=== PATIENT | female | born 1960 | race African-American/Black ===

== ENCOUNTER 2018-01-25 13:06 | Emergency (ER) | payer OTHER ==
--- NOTE | 2018-01-25 14:08 | RAD REPORT ---
EXAM DESCRIPTION: Pramod Noble (2 Views)01/25/2018 1:49 pm CLINICAL HISTORY: Cough COMPARISON: None FINDINGS: The lungs appear clear of acute infiltrate. The heart is normal size IMPRESSION: No acute abnormalities displayed
[2018-01-25] MEDS ORDERED: DEXAMETHASONE 10 MG/ML VIAL ONE (14:41)
--- NOTE | 2018-01-25 14:50 | ER ---
Nurse's Notes [facility] Name: Sergio Otero Age: 57 yrs Sex: Female : 1960 Arrival Date: 01/25/2018 Time: 13:07 Bed 26 Private MD: Pratik Arias Diagnosis: Allergic rhinitis, unspecified Presentation: 01/25 13:10 Presenting complaint: Patient states: I have been real congested for about a week and la1 trying OTC meds but I just cant seem to get rid of it. Transition of care: patient was not received from another setting of care. Onset of symptoms was January 25, 2018. Care prior to arrival: None. 13:10 Method Of Arrival: Ambulatory la1 13:10 Acuity: SIMONE 4 la1 Historical: - Allergies: 13:11 No Known Allergies; la1 - PMHx: 13:11 Hyperlipidemia; Hypertension; kidney function is low; Sickle Cell Trait; la1 - Immunization history:: Adult Immunizations up to date. - Social history:: Smoking status: Patient/guardian denies using tobacco. Screenin:20 Abuse screen: Denies threats or abuse. Denies injuries from another. Nutritional aj1 screening: No deficits noted. Tuberculosis screening: No symptoms or risk factors identified. Fall Risk None identified. Assessment: 14:20 General: Appears in no apparent distress. uncomfortable, Behavior is calm, cooperative, aj1 appropriate for age. Pain: Denies pain. Neuro: No deficits noted. Level of Consciousness is awake, alert, obeys commands, Oriented to person, place, time, situation, Speech is normal. Cardiovascular: Patient's skin is warm and dry. Respiratory: Reports shortness of breath on exertion cough that is non-productive, Airway is patent Respiratory effort is even, unlabored, Respiratory pattern is regular, symmetrical, Breath sounds are clear bilaterally. GI: No signs and/or symptoms were reported involving the gastrointestinal system. : No signs and/or symptoms were reported regarding the genitourinary system. EENT: Reports nasal congestion nasal discharge. Derm: No signs and/or symptoms reported regarding the dermatologic system. Skin is pink, warm \T\ dry. normal. Musculoskeletal: No signs and/or symptoms reported regarding the musculoskeletal system. Circulation, motion, and sensation intact. 15:29 Reassessment: Patient appears in no apparent distress at this time. No changes from aj1 previously documented assessment. Patient and/or family updated on plan of care and expected duration. Pain level reassessed. Patient is alert, oriented x 3, equal unlabored respirations, skin warm/dry/pink. Vital Signs: 13:11 BP 151 / 86; Pulse 82; Resp 16; Temp 98.3; Pulse Ox 96% on R/A; Weight 108.86 kg; la1 Height 5 ft. 7 in. (170.18 cm); 14:20 BP 149 / 83; Pulse 87; Resp 18; Pulse Ox 95% on R/A; aj1 13:11 Body Mass Index 37.59 (108.86 kg, 170.18 cm) la1 ED Course: 13:07 Patient arrived in ED. as 13:07 Pratik Arias DO is Private Physician. as 13:10 Triage completed. la1 13:11 Arm band placed on left wrist. la1 13:13 Xenia Cody F[facility]-C is [facility]. kb 13:13 Eugenio Sanchez MD is Attending Physician. kb 13:40 Patient moved to radiology via wheelchair. jb2 13:44 X-ray completed. Patient tolerated procedure well. jb2 13:44 Chest Pa And Lat (2 Views) XRAY In Process Unspecified. EDMS 13:48 Patient moved back from radiology. jb2 14:17 Maryellen Anand, RN is Primary Nurse. aj1 14:20 Patient has correct armband on for positive identification. Bed in low position. Call aj1 light in reach. Side rails up X 1. 14:20 No provider procedures requiring assistance completed. aj1 15:30 Patient did not have IV access during this emergency room visit. aj1 Administered Medications: 14:30 Drug: Decadron 10 mg Route: IM; Site: left deltoid; aj1 Outcome: 14:50 Discharge ordered by MD. kb 15:52 Discharged to home ambulatory. ss 15:52 Condition: good 15:52 Discharge instructions given to patient, family, Instructed on discharge instructions, follow up and referral plans. Demonstrated understanding of instructions, follow-up care. 15:53 Patient left the ED. ss Signatures: Dispatcher [employer] [facility] Xenia Cody FNP-C FNP-Maryellen Heath RN RN aj1 Buechter, Maria G Greene Shelby, RN RN ss Edilberto Parra RN RN la1 Corrections: (The following items were deleted from the chart) 15: General: Appears in no apparent distress. uncomfortable, Behavior is calm, aj1 cooperative, appropriate for age, [facility] 15: Pain: Denies pain. aj1 [facility] 15: Neuro: No deficits noted. Level of Consciousness is awake, alert, obeys commands, aj1 Oriented to person, place, time, situation, Speech is normal, aj1 15: Cardiovascular: Patient's skin is warm and dry. aj1 [facility] 15: Respiratory: Reports shortness of breath on exertion cough that is aj1 non-productive, Airway is patent Respiratory effort is even, unlabored, Respiratory pattern is regular, symmetrical, Breath sounds are clear bilaterally. aj1 15: GI: No signs and/or symptoms were reported involving the gastrointestinal system. aj1 1 15: : No signs and/or symptoms were reported regarding the genitourinary system. aj1aj1 15: EENT: Reports nasal congestion nasal discharge aj1 [facility] 15: Derm: No signs and/or symptoms reported regarding the dermatologic system. Skin aj1 is pink, warm \T\ dry. normal, 1 15: Musculoskeletal: No signs and/or symptoms reported regarding the musculoskeletal aj1 system. Circulation, motion, and sensation intact. aj1
--- NOTE | 2018-01-25 14:50 | EDPHYS ---
Physician Documentation [facility] Name: Sergio Otero Age: 57 yrs Sex: Female : 1960 Arrival Date: 01/25/2018 Time: 13:07 Bed 26 Private MD: [facility] ED Physician Eugenio Sanchez HPI: 01/25 14:42 This 57 yrs old Black Female presents to ER via Ambulatory with complaints of kb Congestion, Shortness Of Breath. 14:42 The patient or guardian reports cough, that is intermittent, described as mild, with no kb sputum. Onset: The symptoms/episode began/occurred 1 week(s) ago. Severity of symptoms: At their worst the symptoms were mild, moderate, in the emergency department the symptoms are unchanged. Modifying factors: The symptoms are alleviated by nothing, the symptoms are aggravated by nothing. Associated signs and symptoms: Pertinent positives: rhinorrhea, Pertinent negatives: chest pain, diarrhea, ear ache, fever, nausea, sore throat, vomiting. The patient has not experienced similar symptoms in the past. The patient has not recently seen a physician. Pt states she has had congestion for a week. Called her PCP yesterday and was told to start flonase and allergra. Started both yesterday, but still congested. Came to see if she could get an "allergy shot.". Historical: - Allergies: 13:11 No Known Allergies; la1 - PMHx: 13:11 Hyperlipidemia; Hypertension; kidney function is low; Sickle Cell Trait; la1 - Immunization history:: Adult Immunizations up to date. - Social history:: Smoking status: Patient/guardian denies using tobacco. ROS: 14:39 Cardiovascular: Negative for chest pain, palpitations, and edema, Abdomen/GI: Negative kb for abdominal pain, nausea, vomiting, diarrhea, and constipation, Back: Negative for injury and pain, MS/Extremity: Negative for injury and deformity, Skin: Negative for injury, rash, and discoloration, Neuro: Negative for headache, weakness, numbness, tingling, and seizure. 14:39 Constitutional: Positive for chills, Negative for body aches, fatigue, fever, malaise, poor PO intake, weight loss. 14:39 ENT: Positive for rhinorrhea, sinus congestion. 14:39 Respiratory: Positive for cough, Negative for dyspnea on exertion, hemoptysis, orthopnea, pleurisy, shortness of breath, sputum production, wheezing. Exam: 14:39 Constitutional: This is a well developed, well nourished patient who is awake, alert, kb and in no acute distress. Head/Face: Normocephalic, atraumatic. ENT: Nares patent. No nasal discharge, no septal abnormalities noted. Tympanic membranes are normal and external auditory canals are clear. Oropharynx with no redness, swelling, or masses, exudates, or evidence of obstruction, uvula midline. Mucous membranes moist. Neck: Trachea midline, no thyromegaly or masses palpated, and no cervical lymphadenopathy. Supple, full range of motion without nuchal rigidity, or vertebral point tenderness. No Meningismus. Chest/axilla: Normal chest wall appearance and motion. Nontender with no deformity. No lesions are appreciated. Cardiovascular: Regular rate and rhythm with a normal S1 and S2. No gallops, murmurs, or rubs. Normal PMI, no JVD. No pulse deficits. Respiratory: Lungs have equal breath sounds bilaterally, clear to auscultation and percussion. No rales, rhonchi or wheezes noted. No increased work of breathing, no retractions or nasal flaring. Abdomen/GI: Soft, non-tender, with normal bowel sounds. No distension or tympany. No guarding or rebound. No evidence of tenderness throughout. Skin: Warm, dry with normal turgor. Normal color with no rashes, no lesions, and no evidence of cellulitis. MS/ Extremity: Pulses equal, no cyanosis. Neurovascular intact. Full, normal range of motion. Neuro: Awake and alert, GCS 15, oriented to person, place, time, and situation. Cranial nerves II-XII grossly intact. Motor strength 5/5 in all extremities. Sensory grossly intact. Cerebellar exam normal. Normal gait. Vital Signs: 13:11 BP 151 / 86; Pulse 82; Resp 16; Temp 98.3; Pulse Ox 96% on R/A; Weight 108.86 kg; la1 Height 5 ft. 7 in. (170.18 cm); 14:20 BP 149 / 83; Pulse 87; Resp 18; Pulse Ox 95% on R/A; aj1 13:11 Body Mass Index 37.59 (108.86 kg, 170.18 cm) la1 MDM: 13:13 Patient medically screened. kb 14:39 Data reviewed: vital signs, nurses notes. Data interpreted: Pulse oximetry: on room air kb is 96 %. Interpretation: normal. 14:42 Counseling: I had a detailed discussion with the patient and/or guardian regarding: the kb historical points, exam findings, and any diagnostic results supporting the discharge/admit diagnosis, lab results, radiology results, the need for outpatient follow up, a family practitioner, to return to the emergency department if symptoms worsen or persist or if there are any questions or concerns that arise at home. 01/25 13:23 Order name: Flu; Complete Time: 14:49 kb 01/25 13:23 Order name: Chest Pa And Lat (2 Views) XRAY; Complete Time: 14:08 kb Administered Medications: 14:30 Drug: Decadron 10 mg Route: IM; Site: left deltoid; aj1 Disposition: 01/25/18 14:50 Discharged to Home. Impression: Allergic rhinitis, unspecified. - Condition is Stable. - Discharge Instructions: Allergic Rhinitis, Allergies, [id number]. - Medication Reconciliation Form, Thank You Letter, Antibiotic Education, Prescription Opioid Use form. - Follow up: Emergency Department; When: As needed; Reason: Worsening of condition. Follow up: Private Physician; When: 2 - 3 days; Reason: Recheck today's complaints, Continuance of care, Re-evaluation by your physician. Addendum: 01/28/2018 08:24 Co-signature as Attending Physician, Eugenio Sanchez MD I agree with the assessment and c ledezma plan of care. Signatures: Dispatcher [employer] Xenia Gatica, SPORTS CLERK-C SPORTS CLERK-CkMaryellen Ortiz, RN RN aj1 Eugenio Sanchez MD MD cha Smirch, Shelby, RN RN ss Edilberto Parra, RN RN la1
[2018-01-25 15:57] VITALS: TEMP 98.3
[2018-01-25 15:58] VITALS: BP 149/83; O2SAT 95
== END 2018-01-25 15:53 | disposition home or self-care (01) ==
LOC: ER 13:06
DX: J30.9 Allergic rhinitis, unspecified (principal); I10 Essential (primary) hypertension
CPT/HCPCS: 71046; 87804 ×2; 96372; 99283; J1100

== ENCOUNTER 2018-05-04 17:20 | Emergency (ER) | payer OTHER ==
--- OUTSIDE RECORDS SUMMARY | 2018-05-04 17:22 | XMS REPORT ---
:1960 Author Organization [employer] Care Team Providers Name Role Phone Pratik Arias Provider Role Unavailable Allergies No Known Allergies Problems Problem Type Condition Code Onset Dates Condition Status Problem Sickle-cell trait D57.3 Active Problem Colon polyp K63.5 Active Problem Iron deficiency anemia due to D50.0 Active chronic blood loss Problem Benign essential HTN I10 Active Problem Heel pain M79.673 Active Problem Obesity E66.9 Active Problem Varicose vein I86.8 Active Problem Hyperlipidemia, mixed E78.2 Active Problem Glaucoma H40.9 Active Problem Chronic renal disease N18.9 Active Assessment Screening mammogram, encounter for Z12.31 Active Problem Pulmonary hypertension I27.20 Active Problem 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 Active Medications No Known Medications Results No Known Results Summary Purpose [employer]Clinical[employer] Submission
--- OUTSIDE RECORDS SUMMARY | 2018-05-04 17:22 | XMS REPORT ---
:1960 Author Organization [employer] Care Team Providers Name Role Phone Pratik Arias Provider Role Unavailable Allergies No Known Allergies Problems Problem Type Condition Code Onset Dates Condition Status Problem Sickle-cell trait D57.3 Active Problem Colon polyp K63.5 Active Problem Iron deficiency anemia due to D50.0 Active chronic blood loss Problem Pulmonary hypertension I27.20 Active Problem 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 Active Problem Benign essential HTN I10 Active Problem Heel pain M79.673 Active Problem Obesity E66.9 Active Problem Varicose vein I86.8 Active Problem Hyperlipidemia, mixed E78.2 Active Problem Glaucoma H40.9 Active Problem Chronic renal disease N18.9 Active Medications No Known Medications Results No Known Results Summary Purpose [employer] Submission
--- OUTSIDE RECORDS SUMMARY | 2018-05-04 17:22 | XMS REPORT ---
:1960 Author Organization [employer] Care Team Providers Name Role Phone Pratik [...] Medications Results No Known Results Summary Purpose [employer] Submission
--- OUTSIDE RECORDS SUMMARY | 2018-05-04 17:22 | XMS REPORT ---
:1960 Author Organization [employer] Care Team Providers Name Role Phone Hugo Pratik Provider Role Unavailable Allergies No Known Allergies [...] Problem Chronic renal disease N18.9 Active Assessment Heat rash L74.0 Active Assessment Dry skin dermatitis L85.3 Active Problem Pulmonary hypertension I27.20 Active Problem 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 Active Medications Medication Code Code Instructions Start End Status Dosage System Date Date Furosemide FOR[facility] NAMED [facility] 26930578674 20 MG Orally Active 1 tablet Once a day Ferrous FORMERLY NAMED [facility] 36254184305 325 (65 Fe) MG Active 1 tablet Sulfate Orally Once a day Lumigan FORMER[facility] NAMED [facility] 65522382390 0.01 % Active 1 drop into Ophthalmic Once affected eye a day in the evening Aspir-81 FORMERLY NAMED [facility] 47293006431 81 MG Orally Active 1 tablet Once a day Simvastatin ND 83585166872 10 MG Orally Active 1 tablet in Once a day the evening Lisinopril ND 89230109928 20 MG Orally Active 1 tablet Once a day nexium ND 01624162606 Oral Active 1 tab Amlodipine FORMERLY NAMED [facility] 37032579709 5MG Active TAKE ONE Besylate TABLET BY MOUTH ONCE DAILY Temovate ND 89971794808 0.05 % Active 1 application Externally to affected Twice a day area Norvasc FORMERLY NAMED [facility] 78802711770 5 MG Orally Active 1 tablet Once a day Results No Known Results Summary Purpose [employer] Submission
--- OUTSIDE RECORDS SUMMARY | 2018-05-04 17:22 | XMS REPORT ---
[...] Problem Chronic renal disease N18.9 Active Assessment Pulmonary hypertension I27.20 Active Assessment Sickle-cell trait D57.3 Active Assessment Chronic renal disease N18.9 Active Assessment Benign essential HTN I10 Active Assessment Iron deficiency anemia due to D50.0 Active chronic blood loss Problem Pulmonary hypertension I27.20 Active Assessment Hyperlipidemia, mixed E78.2 Active Problem 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 Active Medications Medication Code Code Instructions Start End Status Dosage System Date Date Furosemide [facility] 54013327156 20 MG Orally Active 1 tablet Once a day Ferrous [facility] 54649835988 325 (65 Fe) MG Active 1 tablet Sulfate Orally Once a day Temovate [facility] 26425208327 0.05 % Active 1 application Externally to affected Twice a day area Amlodipine [facility] 29919162974 5MG Active TAKE ONE Besylate TABLET BY MOUTH ONCE DAILY Simvastatin ND 32388447643 10 MG Orally Active 1 tablet in Once a day the evening Norvasc [facility] 54581426564 5 MG Orally Active 1 tablet Once a day nexium ND 94385404886 Oral Active 1 tab Lumigan [facility] 78700786188 0.01 % Active 1 drop into Ophthalmic Once affected eye a day in the evening Aspir-81 [facility] 01793844029 81 MG Orally Active 1 tablet Once a day Lisinopril ND 46860465374 20 MG Orally Active 1 tablet Once a day Results No Known Results Summary Purpose [employer]ClinicalWorks Submission
[2018-05-04 18:02] LABS: Urine Blood NEGATIVE (NEG); Urine Glucose 1+ (NEG); Urine Protein 2+ (NEG)
[2018-05-04 18:13] LABS: Urine Bacteria 20-50 /HPF (<20); Urine Culture Reflex Order REFLEXED; Urine RBC <5 /HPF (NONE SEEN); Urine Yeast FEW (NONE SEEN)
[2018-05-04] MEDS ORDERED: CEFTRIAXONE/SWI 1gm 0 GM/0 ML SYR ONE ×2 (18:32)
[2018-05-04] MEDS ORDERED: CEFTRIAXONE/SWI 1gm 1 GM/10 ML SYR ONE (18:33)
[2018-05-04] MEDS ORDERED: LIDOCAINE 1% MPF 2 ML AMPULE ONE (18:46)
[2018-05-04] MEDS ORDERED: CEFTRIAXONE 1000 MG/VIAL ONE (18:47)
--- NOTE | 2018-05-04 19:19 | EDPHYS ---
Physician Documentation [facility] Name: Sergio Otero Age: 57 yrs Sex: Female : 1960 Arrival Date: 05/04/2018 Time: 17:23 Bed 6 Private MD: Pratik Arias ED Physician Eugenio Sanchez HPI: 05/04 18:00 This 57 yrs old Black Female presents to ER via Ambulatory with complaints of cp Dizziness, Abdominal Pain, Ankle Pain. 18:00 The patient presents with urinary symptoms, lower abdominal pain. Onset: The cp symptoms/episode began/occurred today. 18:00 Associated signs and symptoms: Pertinent positives: episode of dizziness earlier today cp that has now resolved. Severity of symptoms: in the emergency department the symptoms have improved, mildly. Patient also reports increasing left foot pain and reports history of "cyst" located dorsum of left foot. Denies injury. Historical: - Allergies: 17:35 No Known Allergies; ss - Home Meds: 19:30 amlodipine oral [Active]; esomeprazole magnesium 40 mg Oral cpDR 1 cap once daily lp1 [Active]; Lasix 20 mg Oral tab 1 tab once daily [Active]; losartan 25 mg Oral tab 1 tab once daily [Active]; pravastatin Oral [Active]; - PMHx: 17:35 Hyperlipidemia; Hypertension; Sickle Cell Trait; kidney function is low; ss - PSHx: 17:35 c section; bilateral knee repair; cyst removed from feet; adrenal gland removed; L ss rotator cuff repair; - Immunization history:: Adult Immunizations up to date. - Social history:: Smoking status: Patient/guardian denies using tobacco. - Ebola Screening: : Patient denies exposure to infectious person Patient denies travel to an Ebola-affected area in the 21 days before illness onset. ROS: 18:05 Constitutional: Negative for body aches, chills, fever, poor PO intake. cp 18:05 Eyes: Negative for injury, pain, redness, and discharge. cp 18:05 ENT: Negative for drainage from ear(s), ear pain, sore throat, difficulty swallowing, difficulty handling secretions. 18:05 Cardiovascular: Negative for chest pain, edema, palpitations. 18:05 Respiratory: Negative for cough, shortness of breath, wheezing. 18:05 Abdomen/GI: Positive for abdominal pain, Negative for nausea, vomiting, and diarrhea, anorexia, black/tarry stool, rectal bleeding. 18:05 : Positive for urinary symptoms, Negative for vaginal bleeding, vaginal discharge. 18:05 MS/extremity: Positive for pain, swelling, tenderness, of the left foot, Negative for injury or acute deformity. 18:05 Skin: Negative for cellulitis, rash. 18:05 Neuro: Negative for altered mental status, headache, syncope, near syncope, weakness. 18:05 All other systems are negative. Exam: 18:12 Constitutional: The patient appears in no acute distress, alert, awake, cp non-diaphoretic, non-toxic, well developed, well nourished. 18:12 Head/Face: Normocephalic, atraumatic. cp 18:12 Eyes: Periorbital structures: appear normal, Conjunctiva: normal, no exudate, no injection, Sclera: no appreciated abnormality, Lids and lashes: appear normal, bilaterally. 18:12 ENT: External ear(s): are unremarkable, Nose: is normal, Mouth: Lips: moist, Oral mucosa: moist, Posterior pharynx: is normal, airway is patent. 18:12 Neck: ROM/movement: is normal, is supple, without pain, no range of motions limitations, no nuchal rigidity. 18:12 Chest/axilla: Inspection: normal, Palpation: is normal, no crepitus, no tenderness. 18:12 Cardiovascular: Rate: normal, Rhythm: regular. 18:12 Respiratory: the patient does not display signs of respiratory distress, Respirations: normal, no use of accessory muscles, no retractions, no splinting, no tachypnea, Breath sounds: are clear throughout, no decreased breath sounds, no stridor, no wheezing. 18:12 Abdomen/GI: Inspection: abdomen appears normal, Bowel sounds: active, all quadrants, Palpation: abdomen is soft and non-tender, in all quadrants, rebound tenderness, is not appreciated, voluntary guarding, is not appreciated, involuntary guarding, is not appreciated. 18:12 Back: CVA tenderness, is absent. 18:12 Musculoskeletal/extremity: Extremities: grossly normal except: noted in the proximal dorsum left foot: pain, swelling, tenderness, There is no evidence of ecchymosis, erythema, Perfusion: the extremity is normally perfused throughout, Sensation intact. 18:12 Skin: cellulitis, is not appreciated, no rash present. 18:12 Neuro: Orientation: to person, place \\T\\ time. Mentation: is normal, Cerebellar function: is grossly normal, Motor: moves all fours, strength is normal, Sensation: no obvious gross deficits. Vital Signs: 17:35 BP 124 / 76; Pulse 80; Resp 16; Temp 98.6(TE); Pulse Ox 97% on R/A; Weight 113.4 kg; ss Height 5 ft. 7 in. (170.18 cm); Pain 0/10; 18:00 BP 135 / 72 Supine; Pulse 76; aj1 18:02 BP 124 / 75 Sitting; Pulse 76; aj1 18:04 BP 143 / 73 Standing; Pulse 87; aj1 19:30 BP 137 / 73; Pulse 73; Resp 20; Pulse Ox 98% on R/A; lp1 17:35 Body Mass Index 39.16 (113.40 kg, 170.18 cm) ss MDM: 17:39 Patient medically screened. cp 18:00 Differential diagnosis: appendicitis, kidney stone, urinary tract infection, vaginosis. cp 19:18 Data reviewed: vital signs, nurses notes, lab test result(s), radiologic studies, plain cp films. 19:18 Test interpretation: by ED physician or midlevel provider: plain radiologic studies. cp Counseling: I had a detailed discussion with the patient and/or guardian regarding: the historical points, exam findings, and any diagnostic results supporting the discharge/admit diagnosis, lab results, radiology results, the need for outpatient follow up, a family practitioner, to return to the emergency department if symptoms worsen or persist or if there are any questions or concerns that arise at home. Response to treatment: the patient's symptoms have mildly improved after treatment, and as a result, I will discharge patient. 05/04 17:48 Order name: Urine Microscopic Only; Complete Time: 18:14 cp 05/04 18:14 Interpretation: Normal except: UWBC 20-50; UBACT 20-50; SQEPI 5-10. cp 05/04 17:52 Order name: Urine Dipstick--Ancillary (enter results); Complete Time: 18:14 ss 05/04 18:14 Interpretation: Normal except: UGLUC 1+; UPROT 2+; U NIT POSITIVE; UESTR 3+. cp 05/04 17:48 Order name: XRAY Foot LEFT 3 View 05/04 17:53 Order name: Urine --Ancillary (enter results); Complete Time: 18:14 05/04 18:15 Order name: Urine Culture [facility] [place] 05/04 17:48 Order name: Orthostatics; Complete Time: 18:09 cp 05/04 17:48 Order name: Urine Dipstick-Ancillary (obtain specimen); Complete Time: 17:50 cp 05/04 17:48 Order name: Urine Test (obtain specimen); Complete Time: 17:50 cp Administered Medications: 18:51 Drug: Rocephin (cefTRIAXone) 1 grams Route: IM; Site: left gluteus; aj1 19:08 Follow up: Response: No adverse reaction aj1 Disposition: 05/05 06:54 Co-signature as Attending Physician, Eugenio Sanchez MD I agree with the assessment and aundrea plan of care. Disposition: 05/04/18 19:19 Discharged to Home. Impression: Pain in left foot, Urinary tract infection, site not specified. - Condition is Stable. - Discharge Instructions: Musculoskeletal Pain, Urinary Tract Infection. - Prescriptions for Tramadol 50 mg Oral Tablet - take 1 tablet by ORAL route every 8 hours as needed; 15 tablet. Keflex 500 mg Oral Capsule - take 1 capsule by ORAL route every 12 hours for 10 days; 20 capsule. - Medication Reconciliation Form, Thank You Letter, Antibiotic Education, Prescription Opioid Use form. - Follow up: Private Physician; When: 2 - 3 days; Reason: Recheck today's complaints. - Problem is new. - Symptoms have improved. Signatures: Dispatcher [employer] [facility] [place] Maryellen Anand RN RN aj1 Eugenio Sanchez MD MD cha Smirch, Shelby, RN RN Drea Del Valle RN RN lp1 Eugenio Leiva PA PA cp Corrections: (The following items were deleted from the chart) 05/04 20:06 19:19 05/04/2018 19:19 Discharged to Home. Impression: Pain in left foot; Urinary tract lp1 infection, site not specified. Condition is Stable. Forms are Medication Reconciliation Form, Thank You Letter, Antibiotic Education, Prescription Opioid Use. Follow up: Private Physician; When: 2 - 3 days; Reason: Recheck today's complaints. Problem is new. Symptoms have improved. cp
--- NOTE | 2018-05-04 19:19 | ER ---
Nurse's Notes [facility] Name: Sergio Otero Age: 57 yrs Sex: Female : 1960 Arrival Date: 05/04/2018 Time: 17:23 Bed 6 Private MD: Pratik Arias Diagnosis: Pain in left foot;Urinary tract infection, site not specified Presentation: 05/04 17:32 Presenting complaint: Patient states: "Earlier, I thought I had blood in my urine." Pt ss also c/o urinary frequency. Transition of care: patient was not received from another setting of care. Onset of symptoms was May 04, 2018. Risk Assessment: Do you want to hurt yourself or someone else? Patient reports no desire to harm self or others. Initial Sepsis Screen: Does the patient meet any 2 criteria? No. Patient's initial sepsis screen is negative. Does the patient have a suspected source of infection? Yes: Dysuria/Frequency/Urgency/UTI. Care prior to arrival: None. 17:32 Method Of Arrival: Ambulatory ss 17:32 Acuity: SIMONE 4 ss Historical: - Allergies: 17:35 No Known Allergies; ss - Home Meds: 19:30 amlodipine oral [Active]; esomeprazole magnesium 40 mg Oral cpDR 1 cap once daily lp1 [Active]; Lasix 20 mg Oral tab 1 tab once daily [Active]; losartan 25 mg Oral tab 1 tab once daily [Active]; pravastatin Oral [Active]; - PMHx: 17:35 Hyperlipidemia; Hypertension; Sickle Cell Trait; kidney function is low; ss - PSHx: 17:35 c section; bilateral knee repair; cyst removed from feet; adrenal gland removed; L ss rotator cuff repair; - Immunization history:: Adult Immunizations up to date. - Social history:: Smoking status: Patient/guardian denies using tobacco. - Ebola Screening: : Patient denies exposure to infectious person Patient denies travel to an Ebola-affected area in the 21 days before illness onset. Screenin:19 Abuse screen: Denies threats or abuse. Denies injuries from another. Nutritional aj1 screening: No deficits noted. Tuberculosis screening: No symptoms or risk factors identified. 19:30 Fall Risk None identified. lp1 Assessment: 18:19 General: Appears in no apparent distress. uncomfortable, Behavior is calm, cooperative, aj1 appropriate for age. Pain: Complains of pain in left foot Pain does not radiate. Pain currently is 7 out of 10 on a pain scale. Neuro: Level of Consciousness is awake, alert, obeys commands, Oriented to person, place, time, situation, Speech is normal, Facial symmetry appears normal. Cardiovascular: Patient's skin is warm and dry. Respiratory: Airway is patent Respiratory effort is even, unlabored, Respiratory pattern is regular, symmetrical. GI: Abdomen is non-distended, Bowel sounds present X 4 quads. Abd is soft X 4 quads Abdomen is tender to palpation in left upper quadrant and left lower quadrant Patient currently denies diarrhea, nausea, vomiting. : Reports burning with urination, urgency, urinary frequency. EENT: No signs and/or symptoms were reported regarding the EENT system. Derm: No signs and/or symptoms reported regarding the dermatologic system. Skin is pink, warm \\T\\ dry. normal. Musculoskeletal: No signs and/or symptoms reported regarding the musculoskeletal system. Circulation, motion, and sensation intact. 19:30 Reassessment: Patient appears in no apparent distress at this time. Patient is alert, lp1 oriented x 3, equal unlabored respirations, skin warm/dry/pink. Patient aware of discharge. Vital Signs: 17:35 BP 124 / 76; Pulse 80; Resp 16; Temp 98.6(TE); Pulse Ox 97% on R/A; Weight 113.4 kg; ss Height 5 ft. 7 in. (170.18 cm); Pain 0/10; 18:00 BP 135 / 72 Supine; Pulse 76; aj1 18:02 BP 124 / 75 Sitting; Pulse 76; aj1 18:04 BP 143 / 73 Standing; Pulse 87; aj1 19:30 BP 137 / 73; Pulse 73; Resp 20; Pulse Ox 98% on R/A; lp1 17:35 Body Mass Index 39.16 (113.40 kg, 170.18 cm) ED Course: 17:23 Patient arrived in ED. sb2 17:24 Pratik Arias DO is Private Physician. sb2 17:33 Triage completed. ss 17:35 Arm band placed on right wrist. ss 17:39 Eugenio Leiva PA is PHCP. cp 17:39 Eugenio Sanchez MD is Attending Physician. cp 17:50 Cheng, Maryellen, RN is Primary Nurse. aj1 18:15 X-ray completed. Portable x-ray completed in exam room. Patient tolerated procedure tm4 well. 18:17 XRAY Foot LEFT 3 View In Process Unspecified. EDMS 18:19 Patient has correct armband on for positive identification. Bed in low position. Call aj1 light in reach. Side rails up X 1. 18:19 No provider procedures requiring assistance completed. aj1 19:30 Patient did not have IV access during this emergency room visit. lp1 Administered Medications: 18:51 Drug: Rocephin (cefTRIAXone) 1 grams Route: IM; Site: left gluteus; aj1 19:08 Follow up: Response: No adverse reaction aj1 Outcome: 19:19 Discharge ordered by . cp 20:00 Discharged to home ambulatory. lp1 20:00 Condition: good 20:00 Discharge instructions given to patient, Instructed on discharge instructions, follow up and referral plans. medication usage, Demonstrated understanding of instructions, follow-up care, medications, Prescriptions given X 2. 20:06 Patient left the ED. lp1 Signatures: Dispatcher [employer] EDMS Maryellen Anand, RN RN aj1 Shira Traylor tm4 Stacey Harden RN RN ss Drea Del Valle RN RN lp1 Eugenio Leiva, FAHAD PA Naa Purcell sb2
[2018-05-04 20:10] VITALS: TEMP 98.6; O2SAT 97
[2018-05-04 20:13] VITALS: BP 143/73
--- NOTE | 2018-05-04 20:20 | RAD REPORT ---
EXAM DESCRIPTION: RAD - Foot Left 3 View - 05/04/2018 6:19 pm CLINICAL HISTORY: Foot pain COMPARISON: September 2011 FINDINGS: A thin crescent-shaped bony density is present along the lateral margin of the left cuboid bone. Is was not present in 2010. Patient did not detail any trauma history, only foot pain and inte rmittent soft tissue mass. A small bone avulsion would be possible but needs correlation with any loc alizing symptoms. Degenerative changes are present along the dorsal margin of the midfoot. Patient ledezma s very large spurs at the Achilles and plantar tendon attachments. No discrete soft tissue mass identifiable. Dorsal soft tissues do appear edematous. No air or foreign body. IMPRESSION: Thin crescent-shaped bony density at the lateral margin cuboid bone is potentially an av ulsion though the patient does not detail trauma. Site of foot pain was not detailed. Midfoot degenerative change present. Large plantar and Achilles spurs. Dorsum soft tissue swelling without defined mass, air or foreign body.
== END 2018-05-04 20:06 | disposition home or self-care (01) ==
LOC: ER 17:20
DX: N39.0 Urinary tract infection, site not specified (principal); M79.672 Pain in left foot; I10 Essential (primary) hypertension; E78.5 Hyperlipidemia, unspecified
CPT/HCPCS: 73630; 81025; 87086; 87088; 96372; 99283; J0696; J2001; 81003; 81015

== ENCOUNTER 2018-07-27 08:03 | Emergency (ER) | payer OTHER ==
--- OUTSIDE RECORDS SUMMARY | 2018-07-27 08:05 | XMS REPORT ---
:1960 Author Organization [employer] Care Team Providers Name Role Phone Pratik [...] Medications Results No Known Results Summary Purpose [facility] Submission
--- OUTSIDE RECORDS SUMMARY | 2018-07-27 08:05 | XMS REPORT ---
[...] End Status Dosage System Date Date Furosemide [facility] 54137803645 20 MG Orally Active 1 tablet Once a day Ferrous [facility] 87154492977 325 (65 Fe) MG Active 1 tablet Sulfate Orally Once a day Temovate [facility] 90216450754 0.05 % Active 1 application Externally to affected Twice a day area Amlodipine [facility] 01334574311 5MG Active TAKE ONE Besylate TABLET BY MOUTH ONCE DAILY Simvastatin ND 18705489523 10 MG Orally Active 1 tablet in Once a day the evening Norvasc [facility] 06001614757 5 MG Orally Active 1 tablet Once a day nexium ND 29452490328 Oral Active 1 tab Lumigan [facility] 04860698582 0.01 % Active 1 drop into Ophthalmic Once affected eye a day in the evening Aspir-81 [facility] 62713260389 81 MG Orally Active 1 tablet Once a day Lisinopril ND 86410350445 20 MG Orally Active 1 tablet Once a day Results No Known Results Summary Purpose [employer] Submission
--- OUTSIDE RECORDS SUMMARY | 2018-07-27 08:05 | XMS REPORT ---
:1960 Author Organization [employer] Care Team Providers Name Role Phone Pratik [...] Medications Results No Known Results Summary Purpose [facility] Submission
--- OUTSIDE RECORDS SUMMARY | 2018-07-27 08:05 | XMS REPORT ---
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 Active Medications Medication Code Code Instructions Start End Status Dosage System Date Date Ferrous [facility] 39076018094 325 (65 Fe) MG Active 1 tablet Sulfate Orally Once a day Norvasc [facility] 65653626884 5 MG Orally Active 1 tablet Once a day Temovate [facility] 87706322134 0.05 % Active 1 application Externally to affected Twice a day area nexium [facility] 66809231186 Oral Active 1 tab Lisinopril [facility] 03077088913 20 MG Orally Active 1 tablet Once a day Amlodipine [facility] 22447484820 5MG Active TAKE ONE Besylate TABLET BY MOUTH ONCE DAILY Aspir-81 [facility] 79012836475 81 MG Orally Active 1 tablet Once a day Lisinopril [facility] 69535380655 20 MG Orally Active 1 tablet Once a day Lumigan [facility] 42070364342 0.01 % Active 1 drop into Ophthalmic Once affected eye a day in the evening Simvastatin [facility] 98049440354 10 MG Orally Active 1 tablet in Once a day the evening Furosemide [facility] 70259084724 20 MG Orally Active 1 tablet Once a day Results No Known Results Summary Purpose [employer] Submission
--- OUTSIDE RECORDS SUMMARY | 2018-07-27 08:05 | XMS REPORT ---
[...] Status Dosage System Date Date Furosemide [facility] 84444594616 20 MG Orally Active 1 tablet Once a day Ferrous [facility] 91073733210 325 (65 Fe) MG Active 1 tablet Sulfate Orally Once a day Lumigan [facility] 06439113297 0.01 % Active 1 drop into Ophthalmic Once affected eye a day in the evening Aspir-81 [facility] 15226672067 81 MG Orally Active 1 tablet Once a day Simvastatin ND 40672786564 10 MG Orally Active 1 tablet in Once a day the evening Lisinopril ND 34883422645 20 MG Orally Active 1 tablet Once a day nexium ND 80294786237 Oral Active 1 tab Amlodipine [facility] 74246122612 5MG Active TAKE ONE Besylate TABLET BY MOUTH ONCE DAILY Temovate ND 01389468943 0.05 % Active 1 application Externally to affected Twice a day area Norvasc [facility] 35858904772 5 MG Orally Active 1 tablet Once a day Results No Known Results Summary Purpose [employer] Submission
--- NOTE | 2018-07-27 11:13 | RAD REPORT ---
[facility] CLINICAL HISTORY: left leg pain and swelling. COMPARISON: 2015 FINDINGS: Left common femoral, superficial femoral, popliteal and posterior tibial veins are compre ssible and demonstrate augmentation. Doppler demonstrates good flow. IMPRESSION: No evidence of deep venous thrombosis involving the left lower extremity.
[2018-07-27] MEDS ORDERED: CODEINE 30MG/APAP 300MG TAB ONE (11:39)
--- NOTE | 2018-07-27 12:21 | RAD REPORT ---
EXAM DESCRIPTION: RAD - Foot Left 3 View - 07/27/2018 11:58 am CLINICAL HISTORY: Left Foot pain FINDINGS: No fracture or dislocation is seen. Large calcaneal spurs are present
--- NOTE | 2018-07-27 12:34 | EDPHYS ---
Physician Documentation [facility] Name: Sergio Otero Age: 57 yrs Sex: Female : 1960 Arrival Date: 07/27/2018 Time: 08:06 Bed 19 Private MD: Pratik Arias ED Physician Jairon Zepeda HPI: 07/27 12:30 This 57 yrs old Black Female presents to ER via Ambulatory with complaints of Left foot pm1 Swelling. 12:30 The patient presents with pain, swelling. The complaints affect the left foot and left pm1 anthony. Context: The problem was sustained at home, resulted from an unknown cause, the patient can fully bear weight, the patient is able to ambulate, Problem is a result from a previous injury: Patient with removal of cyst from dorsum of left foot many years ago. Patient with swelling to left lower leg since that surgery. Onset: The symptoms/episode began/occurred 3 day(s) ago. Modifying factors: The symptoms are alleviated by elevating leg, the symptoms are aggravated by nothing. Associated signs and symptoms: Pertinent positives: swelling, Pertinent negatives fever, numbness, tingling. Treatment prior to arrival includes: no previous treatment. Severity of symptoms: in the emergency department the symptoms are actually worse. The patient has experienced similar episodes in the past, several times. The patient has not recently seen a physician. Historical: - Allergies: 08:20 No Known Allergies; hb - Home Meds: 08:20 amlodipine oral [Active]; esomeprazole magnesium 40 mg Oral cpDR 1 cap once daily hb [Active]; Lasix 20 mg Oral tab 1 tab once daily [Active]; losartan 25 mg Oral tab 1 tab once daily [Active]; pravastatin Oral [Active]; Iron CR Oral [Active]; - PMHx: 08:20 Hyperlipidemia; Hypertension; kidney function is low; Sickle Cell Trait; hb - PSHx: 08:20 c section; bilateral knee repair; cyst removed from feet; adrenal gland removed; L hb rotator cuff repair; - Immunization history:: Adult Immunizations up to date. - Social history:: Smoking status: Patient/guardian denies using tobacco. - Ebola Screening: : No symptoms or risks identified at this time. ROS: 12:30 Constitutional: Negative for fever, chills, and weight loss, Eyes: Negative for injury, pm1 pain, redness, and discharge, ENT: Negative for injury, pain, and discharge, Neck: Negative for injury, pain, and swelling, Cardiovascular: Negative for chest pain, palpitations, and edema, Respiratory: Negative for shortness of breath, cough, wheezing, and pleuritic chest pain, Abdomen/GI: Negative for abdominal pain, nausea, vomiting, diarrhea, and constipation, Back: Negative for injury and pain. 12:30 Skin: Negative for injury, rash, and discoloration. 12:30 Neuro: Negative for headache, weakness, numbness, tingling, and seizure. 12:30 MS/extremity: Positive for pain, swelling, of the left anthony, anterior aspect of left ankle and dorsum of left foot. Exam: 12:30 Constitutional: This is a well developed, well nourished patient who is awake, alert, pm1 and in no acute distress. Head/Face: Normocephalic, atraumatic. Eyes: Pupils equal round and reactive to light, extra-ocular motions intact. Lids and lashes normal. Conjunctiva and sclera are non-icteric and not injected. Cornea within normal limits. Periorbital areas with no swelling, redness, or edema. ENT: Nares patent. No nasal discharge, no septal abnormalities noted. Tympanic membranes are normal and external auditory canals are clear. Oropharynx with no redness, swelling, or masses, exudates, or evidence of obstruction, uvula midline. Mucous membranes moist. Neck: Trachea midline, no thyromegaly or masses palpated, and no cervical lymphadenopathy. Supple, full range of motion without nuchal rigidity, or vertebral point tenderness. No Meningismus. Chest/axilla: Normal chest wall appearance and motion. Nontender with no deformity. No lesions are appreciated. Cardiovascular: Regular rate and rhythm with a normal S1 and S2. No gallops, murmurs, or rubs. No pulse deficits. Respiratory: Lungs have equal breath sounds bilaterally, clear to auscultation and percussion. No rales, rhonchi or wheezes noted. No increased work of breathing, no retractions or nasal flaring. Abdomen/GI: Soft, non-tender, with normal bowel sounds. No distension or tympany. No guarding or rebound. No evidence of tenderness throughout. Back: No spinal tenderness. No costovertebral tenderness. Full range of motion. Skin: Warm, dry with normal turgor. Normal color with no rashes, no lesions, and no evidence of cellulitis. 12:30 Musculoskeletal/extremity: Extremities: grossly normal except: noted in the anterior aspect of left ankle and left ankle and dorsum of left foot: swelling, There is no evidence of decreased ROM, deformity, ROM: Sensation intact. 12:30 Neuro: Orientation: is normal, Mentation: is normal, Motor: moves all fours, Sensation: is normal, no obvious gross deficits. Vital Signs: 08:18 BP 174 / 92; Pulse 82; Resp 16; Temp 98; Pulse Ox 99% on R/A; Weight 108.86 kg; Height hb 5 ft. 7 in. (170.18 cm); Pain 8/10; 09:30 BP 160 / 86; Pulse 72; Resp 15; Pulse Ox 97% on R/A; em 10:30 BP 115 / 96; Pulse 66; Resp 18; Pulse Ox 97% on R/A; em 11:28 BP 144 / 72; Pulse 65; Resp 16; Pulse Ox 100% on R/A; Pain 7/10; em 13:02 BP 159 / 88; Pulse 73; Resp 18; Pulse Ox 99% on R/A; Pain 6/10; em 08:18 Body Mass Index 37.59 (108.86 kg, 170.18 cm) hb MDM: 09:30 Patient medically screened. pm1 12:30 Data reviewed: vital signs. Counseling: I had a detailed discussion with the patient pm1 and/or guardian regarding: the historical points, exam findings, and any diagnostic results supporting the discharge/admit diagnosis, radiology results, the need for outpatient follow up, to return to the emergency department if symptoms worsen or persist or if there are any questions or concerns that arise at home. 07/27 09:49 Order name: Extremity Venous Uni Ltd US; Complete Time: 12:30 pm1 07/27 11:11 Order name: Foot Left 3 View XRAY; Complete Time: 12:30 pm1 Administered Medications: 11:36 Drug: Tylenol #3 (300 mg-30 mg) 1 tablet Route: PO; em Disposition: 13:39 Co-signature as Attending Physician, Jairon Zepeda MD. rn Disposition: 07/27/18 12:33 Discharged to Home. Impression: Pain in left foot. - Condition is Stable. - Discharge Instructions: Musculoskeletal Pain, Peripheral Edema. - Prescriptions for Tramadol 50 mg Oral Tablet - take 1 tablet by ORAL route every 8 hours as needed; 12 tablet. - Medication Reconciliation Form, Thank You Letter, Prescription Opioid Use form. - Follow up: Emergency Department; When: As needed; Reason: Worsening of condition. Follow up: Private Physician; When: 2 - 3 days; Reason: Recheck today's complaints, Continuance of care, Re-evaluation by your physician. - Problem is new. - Symptoms have improved. Signatures: Dispatcher [employer] EDMS Lupillo Matta, COIN MACHINE COLLECTOR SUPERVISOR COIN MACHINE COLLECTOR SUPERVISOR em Jairon Zepeda MD MD rn Arsen Mathis, ICT CUSTOMER SUPPORT OFFICER ICT CUSTOMER SUPPORT OFFICER pm1 Idania Weber RN RN Corrections: (The following items were deleted from the chart) 13:03 12:33 07/27/2018 12:33 Discharged to Home. Impression: Pain in left foot. Condition is em Stable. Forms are Medication Reconciliation Form, Thank You Letter, Antibiotic Education, Prescription Opioid Use. Follow up: Emergency Department; When: As needed; Reason: Worsening of condition. Follow up: Private Physician; When: 2 - 3 days; Reason: Recheck today's complaints, Continuance of care, Re-evaluation by your physician. Problem is new. Symptoms have improved. pm1
--- NOTE | 2018-07-27 12:34 | ER ---
Nurse's Notes [facility] Name: Sergio Otero Age: 57 yrs Sex: Female : 1960 Arrival Date: 07/27/2018 Time: 08:06 Bed 19 Private MD: Pratik Arias Diagnosis: Pain in left foot Presentation: 07/27 08:18 Presenting complaint: Patient states: Left foot and ankle swelling x 3 days. Denies hb injury. Transition of care: patient was not received from another setting of care. Onset of symptoms was July 25, 2018. Risk Assessment: Do you want to hurt yourself or someone else? Patient reports no desire to harm self or others. Initial Sepsis Screen:. Care prior to arrival: None. 08:18 Method Of Arrival: Ambulatory hb 08:18 Acuity: SIMONE 3 hb 11:27 Initial Sepsis Screen: Does the patient meet any 2 criteria? No. Patient's initial em sepsis screen is negative. Does the patient have a suspected source of infection? No. Patient's initial sepsis screen is negative. Triage Assessment: 08:20 General: Appears in no apparent distress. Behavior is calm, cooperative. Pain: Pain hb currently is 8 out of 10 on a pain scale. Neuro: Level of Consciousness is awake, alert, obeys commands, Oriented to person, place, time, situation. Cardiovascular: Capillary refill < 3 seconds Patient's skin is warm and dry. Edema is 4+ to left ankle and left foot. Historical: - Allergies: 08:20 No Known Allergies; hb - Home Meds: 08:20 amlodipine oral [Active]; esomeprazole magnesium 40 mg Oral cpDR 1 cap once daily hb [Active]; Lasix 20 mg Oral tab 1 tab once daily [Active]; losartan 25 mg Oral tab 1 tab once daily [Active]; pravastatin Oral [Active]; Iron CR Oral [Active]; - PMHx: 08:20 Hyperlipidemia; Hypertension; kidney function is low; Sickle Cell Trait; hb - PSHx: 08:20 c section; bilateral knee repair; cyst removed from feet; adrenal gland removed; L hb rotator cuff repair; - Immunization history:: Adult Immunizations up to date. - Social history:: Smoking status: Patient/guardian denies using tobacco. - Ebola Screening: : No symptoms or risks identified at this time. Screenin:47 Abuse screen: Denies threats or abuse. Nutritional screening: No deficits noted. em Tuberculosis screening: No symptoms or risk factors identified. Fall Risk None identified. Assessment: 09:48 General: Appears in no apparent distress. comfortable, Behavior is calm, cooperative. em Pain: Complains of pain in left ankle. Neuro: Level of Consciousness is awake, alert, obeys commands, Oriented to person, place, time, situation. Cardiovascular: Capillary refill < 3 seconds Patient's skin is warm and dry. Edema is 1+ to left ankle, left foot and left toes. Respiratory: Airway is patent Respiratory effort is even, unlabored, Respiratory pattern is regular, symmetrical, Breath sounds are clear bilaterally. GI: Abdomen is round. : No signs and/or symptoms were reported regarding the genitourinary system. EENT: No signs and/or symptoms were reported regarding the EENT system. Derm: Skin is intact, Skin is pink, warm \T\ dry. Musculoskeletal: Capillary refill < 3 seconds, Range of motion: intact in all extremities, Swelling present in left anthony, anterior aspect of left ankle and dorsum of left foot. 10:00 Reassessment: I agree with previous assessment. hb 11:26 Reassessment: Patient appears in no apparent distress at this time. Patient and/or em family updated on plan of care and expected duration. Pain level reassessed. Patient is alert, oriented x 3, equal unlabored respirations, skin warm/dry/pink. rates pain 7/10. 12:13 Reassessment: Patient appears in no apparent distress at this time. Patient and/or em family updated on plan of care and expected duration. Pain level reassessed. Patient is alert, oriented x 3, equal unlabored respirations, skin warm/dry/pink. pending x-ray results. 13:02 Reassessment: Patient appears in no apparent distress at this time. Patient and/or em family updated on plan of care and expected duration. Pain level reassessed. Patient is alert, oriented x 3, equal unlabored respirations, skin warm/dry/pink. rates pain 6/10 Patient denies pain at this time. Vital Signs: 08:18 BP 174 / 92; Pulse 82; Resp 16; Temp 98; Pulse Ox 99% on R/A; Weight 108.86 kg; Height hb 5 ft. 7 in. (170.18 cm); Pain 8/10; 09:30 BP 160 / 86; Pulse 72; Resp 15; Pulse Ox 97% on R/A; em 10:30 BP 115 / 96; Pulse 66; Resp 18; Pulse Ox 97% on R/A; em 11:28 BP 144 / 72; Pulse 65; Resp 16; Pulse Ox 100% on R/A; Pain 7/10; em 13:02 BP 159 / 88; Pulse 73; Resp 18; Pulse Ox 99% on R/A; Pain 6/10; em 08:18 Body Mass Index 37.59 (108.86 kg, 170.18 cm) hb ED Course: 08:06 Patient arrived in ED. as 08:06 Pratik Arias DO is Private Physician. as 08:18 Triage completed. hb 08:18 Arm band placed on left wrist. hb 09:30 Arsen Mathis NP is PHCP. pm1 09:30 Jairon Zepeda MD is Attending Physician. pm1 09:47 Lupillo Matta LVN is Primary Nurse. em 09:47 Patient has correct armband on for positive identification. Bed in low position. Call em light in reach. 09:47 No provider procedures requiring assistance completed. em 11:02 Ultrasound completed. Notified NIGHT MONITOR/FAHAD DOMINGUEZ. sg3 11:05 Extremity Venous Uni Ltd US In Process Unspecified. EDMS 11:54 X-ray completed. Portable x-ray completed in exam room. Patient tolerated procedure la2 well. 11:56 Foot Left 3 View XRAY In Process Unspecified. EDMS 13:01 Patient did not have IV access during this emergency room visit. em Administered Medications: 11:36 Drug: Tylenol #3 (300 mg-30 mg) 1 tablet Route: PO; em Outcome: 12:33 Discharge ordered by MD. pm1 13:01 Discharged to home via wheelchair. em 13:01 Condition: good 13:01 Discharge instructions given to patient, Instructed on discharge instructions, follow up and referral plans. medication usage, Demonstrated understanding of instructions, follow-up care, medications, Prescriptions given X 1. 13:03 Patient left the ED. em Signatures: Dispatcher [employer] EDPA Lupillo Matta LVN LVN em Maria G Avila as Arsen Mathis NP NIGHT MONITOR pm1 Idania Weber RN RN Yuli Muir la2 Callie Yao sg3
[2018-07-27 13:07] VITALS: TEMP 98
[2018-07-27 13:12] VITALS: BP 159/88; O2SAT 99
== END 2018-07-27 13:03 | disposition home or self-care (01) ==
LOC: ER 08:03
DX: M79.672 Pain in left foot (principal); E78.5 Hyperlipidemia, unspecified; I10 Essential (primary) hypertension
CPT/HCPCS: 93971; 99283

== ENCOUNTER 2018-09-19 07:52 | Emergency (ER) | payer OTHER, SELFPAY ==
--- OUTSIDE RECORDS SUMMARY | 2018-09-19 07:55 | XMS REPORT ---
[...] End Status Dosage System Date Date Ferrous [facility] [place] 24883547587 325 (65 Fe) MG Active 1 tablet Sulfate Orally Once a day Norvasc [facility] [place] 31330038892 5 MG Orally Active 1 tablet Once a day Temovate [facility] [place] 72294280748 0.05 % Active 1 application Externally to affected Twice a day area nexium [facility] [place] 75566189518 Oral Active 1 tab Lisinopril [facility] [place] 51830231391 20 MG Orally Active 1 tablet Once a day Amlodipine [facility] [place] 47342371919 5MG Active TAKE ONE Besylate TABLET BY MOUTH ONCE DAILY Aspir-81 [facility] [place] 42997396222 81 MG Orally Active 1 tablet Once a day Lisinopril [facility] [place] 97040472647 20 MG Orally Active 1 tablet Once a day Lumigan [facility] [place] 40955278537 0.01 % Active 1 drop into Ophthalmic Once affected eye a day in the evening Simvastatin [facility] [place] 52931999369 10 MG Orally Active 1 tablet in Once a day the evening Furosemide [facility] [place] 87243295717 20 MG Orally Active 1 tablet Once a day Results No Known Results Summary Purpose [employer] Submission
--- OUTSIDE RECORDS SUMMARY | 2018-09-19 07:55 | XMS REPORT ---
:1960 Author Organization [employer] Care Team Providers Name Role Phone Pratik [...] Medications Results No Known Results Summary Purpose [employer] Submission
--- OUTSIDE RECORDS SUMMARY | 2018-09-19 07:55 | XMS REPORT ---
[...] End Status Dosage System Date Date Furosemide [facility] 89734737136 20 MG Orally Active 1 tablet Once a day Ferrous [facility] 78815822048 325 (65 Fe) MG Active 1 tablet Sulfate Orally Once a day Temovate [facility] 39741466470 0.05 % Active 1 application Externally to affected Twice a day area Amlodipine [facility] 42944731282 5MG Active TAKE ONE Besylate TABLET BY MOUTH ONCE DAILY Simvastatin ND 98844907841 10 MG Orally Active 1 tablet in Once a day the evening Norvasc [facility] 65573421781 5 MG Orally Active 1 tablet Once a day nexium ND 75714598696 Oral Active 1 tab Lumigan [facility] 37607977420 0.01 % Active 1 drop into Ophthalmic Once affected eye a day in the evening Aspir-81 [facility] 31643132343 81 MG Orally Active 1 tablet Once a day Lisinopril ND 68760833353 20 MG Orally Active 1 tablet Once a day Results No Known Results Summary Purpose [employer] Submission
--- OUTSIDE RECORDS SUMMARY | 2018-09-19 07:55 | XMS REPORT ---
:1960 Author Organization [employer] Care Team Providers Name Role Phone Pratik [...] Medications Results No Known Results Summary Purpose [employer] Submission
--- OUTSIDE RECORDS SUMMARY | 2018-09-19 07:55 | XMS REPORT ---
[...] End Status Dosage System Date Date Furosemide [facility] [place] 70750763667 20 MG Orally Active 1 tablet Once a day Ferrous [facility] [place] 33082706084 325 (65 Fe) MG Active 1 tablet Sulfate Orally Once a day Lumigan [facility] [place] 90936204413 0.01 % Active 1 drop into Ophthalmic Once affected eye a day in the evening Aspir-81 [facility] [place] 19130925662 81 MG Orally Active 1 tablet Once a day Simvastatin ND 27765846407 10 MG Orally Active 1 tablet in Once a day the evening Lisinopril ND 32431255646 20 MG Orally Active 1 tablet Once a day nexium ND 52235659385 Oral Active [address] [facility] [place] 40897334884 5MG Active TAKE ONE Besylate TABLET BY MOUTH ONCE DAILY Temovate ND 78140663126 0.05 % Active 1 application Externally to affected Twice a day area Norvasc [facility] [place] 87381657993 5 MG Orally Active 1 tablet Once a day Results No Known Results Summary Purpose [employer]Works Submission
--- NOTE | 2018-09-19 10:02 | RAD REPORT ---
EXAM DESCRIPTION: RAD - Chest Pa And Lat (2 Views) - 09/19/2018 8:49 am CLINICAL HISTORY: Cough and congestion COMPARISON: January 2018 TECHNIQUE: PA and lateral views of the chest were obtained. FINDINGS: The lungs are clear of an acute infiltrative process. Lung markings are mildly prominent b ut stable. No lymphadenopathy identifiable. Heart size is normal and central vasculature is within normal limits. No pleural effusion or pneumothorax seen. No acute bony finding noted. No aortic ab normality. IMPRESSION: No acute cardiopulmonary process. Chest findings are stable from January 2018.
[2018-09-19] MEDS ORDERED: ALBUTEROL 2.5 MG/3 ML NEB SOL ONE (10:09)
[2018-09-19] MEDS ORDERED: IPRATROPIUM BROM 0.5MG/2.5ML ONE (10:09)
--- NOTE | 2018-09-19 10:35 | EDPHYS ---
Physician Documentation [facility] Name: Sergio Otero Age: 57 yrs Sex: Female : 1960 Arrival Date: 09/19/2018 Time: 07:57 Bed 13 Private MD: Hugo [facility] ED Physician Bonilla Alcantara HPI: 09/19 08:30 This 57 yrs old Black Female presents to ER via Ambulatory with complaints of Cough. cp 08:30 The patient or guardian reports cough, that is intermittent, with productive sputum. cp Onset: The symptoms/episode began/occurred 2 week(s) ago. 08:30 Severity of symptoms: in the emergency department the symptoms are unchanged, despite cp home interventions. 08:30 Associated signs and symptoms: Pertinent positives: sore throat, Pertinent negatives: cp chest pain, diarrhea, fever, vomiting. Historical: - Allergies: 08:25 No Known Drug Allergies; tw2 - Home Meds: 08:25 pravastatin Oral [Active]; amlodipine oral [Active]; esomeprazole magnesium 40 mg Oral tw2 cpDR 1 cap once daily [Active]; Iron CR Oral [Active]; Lasix 20 mg Oral tab 1 tab once daily [Active]; losartan 25 mg Oral tab 1 tab once daily [Active]; - PMHx: 08:25 Hyperlipidemia; Hypertension; kidney function is low; Sickle Cell Trait; tw2 - PSHx: 08:25 bilateral knee repair; c section; cyst removed from feet; adrenal gland removed; L tw2 rotator cuff repair; - Immunization history:: Adult Immunizations. - Social history:: Smoking status: . - Ebola Screening: : Patient denies travel to an Ebola-affected area in the 21 days before illness onset. ROS: 08:35 Constitutional: Negative for body aches, chills, fever, poor PO intake. cp 08:35 Eyes: Negative for injury, pain, redness, and discharge. cp 08:35 ENT: Negative for drainage from ear(s), ear pain, sore throat, difficulty swallowing, difficulty handling secretions. 08:35 Cardiovascular: Negative for chest pain, edema, palpitations. 08:35 Respiratory: Positive for cough, with white sputum, Negative for shortness of breath, wheezing. 08:35 Abdomen/GI: Negative for abdominal pain, nausea, vomiting, and diarrhea. 08:35 Back: Negative for pain at rest, pain with movement, radiated pain. 08:35 Skin: Negative for cellulitis, rash. 08:35 Neuro: Negative for altered mental status, headache, syncope, near syncope, weakness. 08:35 All other systems are negative. Exam: 08:42 Constitutional: The patient appears in no acute distress, alert, awake, cp non-diaphoretic, non-toxic, well developed, well nourished. 08:42 Head/Face: Normocephalic, atraumatic. cp 08:42 Eyes: Periorbital structures: appear normal, Conjunctiva: normal, no exudate, no injection, Sclera: no appreciated abnormality, Lids and lashes: appear normal, bilaterally. 08:42 ENT: External ear(s): are unremarkable, Ear canal(s): are normal, clear, TM's: bulging, is not appreciated, bilaterally, dullness, bilaterally, erythema, is not appreciated, bilaterally, Nose: is normal, Mouth: Lips: moist, Oral mucosa: pink and intact, moist, Posterior pharynx: is normal, airway is patent, no erythema, no exudate, Tonsils: are normal in appearance, Voice: is normal. 08:42 Neck: ROM/movement: is normal, is supple, without pain, no range of motions limitations, no meningismus, no nuchal rigidity, Lymph nodes: no appreciated lymphadenopathy. 08:42 Chest/axilla: Inspection: normal, Palpation: is normal, no crepitus, no tenderness. 08:42 Cardiovascular: Rate: normal, Rhythm: regular, Edema: is not appreciated, JVD: is not appreciated. 08:42 Respiratory: the patient does not display signs of respiratory distress, Respirations: normal, no use of accessory muscles, no retractions, no splinting, no tachypnea, labored breathing, is not present, Breath sounds: decreased breath sounds, are not appreciated, rhonchi, are not appreciated, stridor, is not appreciated, wheezing: is not appreciated. 08:42 Abdomen/GI: Exam negative for discomfort, distension, guarding, Inspection: abdomen appears normal. 08:42 Back: pain, is absent, ROM is normal. 08:42 Skin: cellulitis, is not appreciated, no rash present. 08:42 Neuro: Orientation: to person, place \T\ time. Mentation: is normal, Cerebellar function: is grossly normal, Motor: is normal, Sensation: is normal. Vital Signs: 08:22 BP 158 / 91; Pulse 87; Resp 17; Temp 99.(O); Pulse Ox 98% on R/A; Pain 7/10; tw2 09:46 BP 150 / 74; Pulse 67; Resp 17; Pulse Ox 97% on R/A; tw2 10:38 BP 138 / 84; Pulse 77; Resp 17; Pulse Ox 99% on R/A; Pain 6/10; tw2 MDM: 08:22 Patient medically screened. cp 10:00 Differential Diagnosis: Bronchitis Influenza Otitis Media Pneumonia. cp 10:33 Data reviewed: vital signs, nurses notes, lab test result(s), radiologic studies, plain cp films. 10:33 Test interpretation: by ED physician or midlevel provider: plain radiologic studies. cp Counseling: I had a detailed discussion with the patient and/or guardian regarding: the historical points, exam findings, and any diagnostic results supporting the discharge/admit diagnosis, lab results, radiology results, to return to the emergency department if symptoms worsen or persist or if there are any questions or concerns that arise at home. Response to treatment: the patient's symptoms have mildly improved after treatment, and as a result, I will discharge patient. 09/19 08:27 Order name: Influenza Screen (a \T\ B) 09/19 08:27 Order name: Strep 09/19 08:27 Order name: XRAY Chest Pa And Lat (2 Views); Complete Time: 10:12 09/19 10:12 Interpretation: Report reviewed. 09/19 10:34 Order name: Throat Culture EDID Administered Medications: 10:06 Drug: Albuterol 2.5 mg Route: Inhalation; tw2 10:23 Follow up: Response: No adverse reaction tw2 10:06 Drug: AtroVENT Aerosol 0.5 mg Route: Inhalation; tw2 10:23 Follow up: Response: No adverse reaction tw2 Disposition: 09/20 07:13 Co-signature as Attending Physician, Bonilla Alcantara MD I agree with the assessment and kdr plan of care. Disposition: 09/19/18 10:34 Discharged to Home. Impression: Acute bronchitis. - Condition is Stable. - Discharge Instructions: Acute Bronchitis, Adult. - Prescriptions for Tessalon Perles 100 mg Oral Capsule - take 1 capsule by ORAL route every 8 hours As needed; 15 capsule. Zithromax Z- Arsh 250 mg Oral Tablet - take 1 tablet by ORAL route as directed for 5 days Day 1 - take two (2) tablets one time. Day 2, 3, 4 , 5 take one (1) tablet once daily.; 6 tablet. Prednisone 20 mg Oral Tablet - take 2 tablet by ORAL route once daily for 5 days; 10 tablet. Albuterol Sulfate 90 mcg/actuation - inhale 1-2 puff by INHALATION route every 4-6 hours; 1 Inhaler. - Medication Reconciliation Form, Thank You Letter, Antibiotic Education, Prescription Opioid Use form. - Follow up: Pratik Arias DO; When: 2 - 3 days; Reason: Recheck today's complaints. - Problem is new. - Symptoms have improved. Signatures: Dispatcher [employer] EDMS Bonilla Alcantara MD MD [facility] Eugenio Leiva PA PA Marci Chapman RN RN tw2 Corrections: (The following items were deleted from the chart) 09/19 10:39 10:34 09/19/2018 10:34 Discharged to Home. Impression: Acute bronchitis. Condition is tw2 Stable. Forms are Medication Reconciliation Form, Thank You Letter, Antibiotic Education, Prescription Opioid Use. Follow up: Pratik Arias; When: 2 - 3 days; Reason: Recheck today's complaints. Problem is new. Symptoms have improved. cp
--- NOTE | 2018-09-19 10:35 | ER ---
Nurse's Notes [facility] Name: Sergio Otero Age: 57 yrs Sex: Female : 1960 Arrival Date: 09/19/2018 Time: 07:57 Bed 13 Private MD: Pratik Hernandez Diagnosis: Acute bronchitis Presentation: 09/19 08:21 Presenting complaint: Patient states: pt report cough x2 weeks with sinus congestion, tw2 productive white phlegm, no chest pain, feels like a chest cold, dr. hernandez is pcp, tried otc meds and its not helping. Transition of care: patient was not received from another setting of care. Onset of symptoms was September 19, 2018. Risk Assessment: Do you want to hurt yourself or someone else? Patient reports no desire to harm self or others. Initial Sepsis Screen: Does the patient meet any 2 criteria? No. Patient's initial sepsis screen is negative. Does the patient have a suspected source of infection? No. Patient's initial sepsis screen is negative. Care prior to arrival: None. 08:21 Method Of Arrival: Ambulatory tw2 08:21 Acuity: SIMONE 4 tw2 Historical: - Allergies: 08:25 No Known Drug Allergies; tw2 - Home Meds: 08:25 pravastatin Oral [Active]; amlodipine oral [Active]; esomeprazole magnesium 40 mg Oral tw2 cpDR 1 cap once daily [Active]; Iron CR Oral [Active]; Lasix 20 mg Oral tab 1 tab once daily [Active]; losartan 25 mg Oral tab 1 tab once daily [Active]; - PMHx: 08:25 Hyperlipidemia; Hypertension; kidney function is low; Sickle Cell Trait; tw2 - PSHx: 08:25 bilateral knee repair; c section; cyst removed from feet; adrenal gland removed; L tw2 rotator cuff repair; - Immunization history:: Adult Immunizations. - Social history:: Smoking status: . - Ebola Screening: : Patient denies travel to an Ebola-affected area in the 21 days before illness onset. Screenin:23 Abuse screen: Denies threats or abuse. Nutritional screening: No deficits noted. tw2 Tuberculosis screening: No symptoms or risk factors identified. Fall Risk None identified. Assessment: 08:25 General: Appears in no apparent distress. Behavior is calm, cooperative, appropriate tw2 for age. Pain: Complains of pain in throat. Neuro: Level of Consciousness is awake, alert, obeys commands, Oriented to person, place, time, situation. Cardiovascular: Denies chest pain, Heart tones S1 S2 Patient's skin is warm and dry. Respiratory: Reports cough that is productive, white phlegm Airway is patent Respiratory effort is even, unlabored, Respiratory pattern is regular, symmetrical, Breath sounds are clear bilaterally. GI: No signs and/or symptoms were reported involving the gastrointestinal system. : No signs and/or symptoms were reported regarding the genitourinary system. EENT: Reports nasal congestion nasal discharge. Derm: No signs and/or symptoms reported regarding the dermatologic system. Musculoskeletal: No signs and/or symptoms reported regarding the musculoskeletal system. Range of motion: intact in all extremities. 09:46 Reassessment: Patient appears in no apparent distress at this time. No changes from tw2 previously documented assessment. Patient and/or family updated on plan of care and expected duration. Pain level reassessed. Patient is alert, oriented x 3, equal unlabored respirations, skin warm/dry/pink. 10:37 Reassessment: Patient appears in no apparent distress at this time. No changes from tw2 previously documented assessment. Patient and/or family updated on plan of care and expected duration. Pain level reassessed. Patient is alert, oriented x 3, equal unlabored respirations, skin warm/dry/pink. Vital Signs: 08:22 BP 158 / 91; Pulse 87; Resp 17; Temp 99.(O); Pulse Ox 98% on R/A; Pain 7/10; tw2 09:46 BP 150 / 74; Pulse 67; Resp 17; Pulse Ox 97% on R/A; tw2 10:38 BP 138 / 84; Pulse 77; Resp 17; Pulse Ox 99% on R/A; Pain 6/10; tw2 ED Course: 07:57 Patient arrived in ED. mr 07:58 Pratik Hernandez DO is Private Physician. mr 08:21 Marci Iverson RN is Primary Nurse. tw2 08:22 Eugenio Leiva PA is PHCP. cp 08:22 Bonilla Alcantara MD is Attending Physician. cp 08:22 Triage completed. tw2 08:22 Bed in low position. Call light in reach. Pulse ox on. NIBP on. tw2 08:23 Arm band placed on. tw2 08:33 Strep Sent. tw2 08:33 Influenza Screen (a \T\ B) Sent. tw2 08:45 X-ray completed. Patient tolerated procedure well. Patient moved back from radiology. jb2 08:50 XRAY Chest Pa And Lat (2 Views) In Process Unspecified. EDMS 10:33 Pratik Hernandez DO is Referral Physician. cp 10:38 No provider procedures requiring assistance completed. IV discontinued, intact, tw2 bleeding controlled, No redness/swelling at site. Pressure dressing applied. Administered Medications: 10:06 Drug: Albuterol 2.5 mg Route: Inhalation; tw2 10:23 Follow up: Response: No adverse reaction tw2 10:06 Drug: AtroVENT Aerosol 0.5 mg Route: Inhalation; tw2 10:23 Follow up: Response: No adverse reaction tw2 Outcome: 10:34 Discharge ordered by MD. cp 10:38 Discharged to home ambulatory. tw2 10:38 Condition: stable 10:38 Discharge instructions given to patient, Instructed on discharge instructions, follow up and referral plans. medication usage, Demonstrated understanding of instructions, follow-up care, medications, Prescriptions given X 1. 10:39 Patient left the ED. tw2 Signatures: Dispatcher [employer] EDNE Monse Jon Oliver jb2 Eugenio Leiva PA PA cp Wise, Tara, RN RN tw2 Corrections: (The following items were deleted from the chart) 10:38 10:38 BP 138 / 84; Pulse 77bpm; Resp 17bpm; Pulse Ox 99% RA; tw2 tw2
[2018-09-19 10:50] VITALS: TEMP 99
[2018-09-19 10:53] VITALS: BP 138/84; O2SAT 99
== END 2018-09-19 10:39 | disposition home or self-care (01) ==
LOC: ER 07:52
DX: J20.9 Acute bronchitis, unspecified (principal); I10 Essential (primary) hypertension; E78.5 Hyperlipidemia, unspecified
CPT/HCPCS: 71046; 87070; 87081; 87804; 99284

== ENCOUNTER 2019-01-03 19:16 | Emergency (ER) | payer OTHER, SELFPAY ==
--- OUTSIDE RECORDS SUMMARY | 2019-01-03 19:18 | XMS REPORT ---
[...] End Status Dosage System Date Date Furosemide [facility] 20155516109 20 MG Orally Active 1 tablet Once a day Ferrous [facility] 74239228765 325 (65 Fe) MG Active 1 tablet Sulfate Orally Once a day Temovate [facility] 69879282165 0.05 % Active 1 application Externally to affected Twice a day area Amlodipine [facility] 93163869712 5MG Active TAKE ONE Besylate TABLET BY MOUTH ONCE DAILY Simvastatin ND 44983850794 10 MG Orally Active 1 tablet in Once a day the evening Norvasc [facility] 59243035804 5 MG Orally Active 1 tablet Once a day nexium ND 15310522050 Oral Active 1 tab Lumigan [facility] 41124778183 0.01 % Active 1 drop into Ophthalmic Once affected eye a day in the evening Aspir-81 [facility] 03618313459 81 MG Orally Active 1 tablet Once a day Lisinopril ND 03145481423 20 MG Orally Active 1 tablet Once a day Results No Known Results Summary Purpose eClinicalWorks Submission
--- OUTSIDE RECORDS SUMMARY | 2019-01-03 19:19 | XMS REPORT ---
:1960 Author Organization [employer] Care Team Providers Name Role Phone Pratik [...] Medications Results No Known Results Summary Purpose [facility] Submission
--- OUTSIDE RECORDS SUMMARY | 2019-01-03 19:19 | XMS REPORT ---
:1960 Author Organization [employer] Care Team Providers Name Role Phone Pratik [...] Medications Results No Known Results Summary Purpose [employer] Submission
--- OUTSIDE RECORDS SUMMARY | 2019-01-03 19:19 | XMS REPORT ---
:1960 Author Organization [employer] Care Team Providers Name Role Phone Marissa Rodriguez Provider Role Unavailable Allergies, Adverse Reactions, Alerts Substance Reaction Event Type N.K.D.A. 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 Active Problem Rash and nonspecific skin eruption R21 Active Problem Essential hypertension I10 Active Assessment Acute midline low back pain with M54.42 Active left-sided sciatica Assessment Rash and nonspecific skin eruption R21 Active Problem Morbid obesity E66.01 Active Assessment Essential hypertension I10 Active Problem Body mass index (BMI) of 40.0-44.9 Z68.41 Active in adult Problem Acute midline low back pain with M54.42 Active left-sided sciatica Problem Morbid (severe) obesity due to E66.01 Active excess calories Problem Iron deficiency anemia, unspecified D50.9 Active iron deficiency anemia type Problem Iron deficiency anemia due to D50.0 Active chronic blood loss Problem Colon polyp K63.5 Active Problem Sickle-cell trait D57.3 Active Problem Chronic renal disease N18.9 Active Problem Glaucoma H40.9 Active Problem Hyperlipidemia, mixed E78.2 Active Problem Varicose vein I86.8 Active Medications Medication Code Code Instructions Start End Status Dosage System Date Date Simvastatin ND 04435771625 20 MG Orally Active 1 tablet in Once a day the evening Lumigan ND 01254904436 0.01 % Active 1 drop into Ophthalmic Once affected eye a day in the evening Triamcinolone ND 41777461677 0.1 % December Active 1 application Acetonide Externally 06, to affected Twice a day 2019 area Norvasc [facility] 66952649428 5 MG Orally Active 1 tablet Once a day Furosemide [facility] 88117048448 20 MG Orally Active 1 tablet Once a day nexium [facility] 88339901727 Oral Active 1 tab Aspir-81 [facility] 08500892084 81 MG Orally Active 1 tablet Once a day Temovate [facility] 86711819821 0.05 % Active 1 application Externally to affected Twice a day area Lisinopril [facility] 68273624984 20 MG Orally Active 1 tablet Once a day Ferrous Sulfate [facility] 91560982630 325 (65 Fe) MG Active 1 tablet Orally Once a day Results No Known Results Summary Purpose eClinicalWorks Submission
--- OUTSIDE RECORDS SUMMARY | 2019-01-03 19:19 | XMS REPORT ---
:1960 Author Organization [employer] Care Team Providers Name Role Phone Pratik Arias Provider Role Unavailable Allergies, Adverse Reactions, Alerts [...] Problem Chronic renal disease N18.9 Active Assessment Acute bronchitis, unspecified J20.9 Active organism Problem Pulmonary hypertension I27.20 Active Assessment Benign essential HTN I10 Active Problem 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 Active Medications Medication Code Code Instructions Start End Status Dosage System Date Date Lisinopril [facility] 27826322260 20 MG Orally Active 1 tablet [facility] 5 MG Orally Active 1 tablet Once a day Simvastatin ND 60749256433 20 MG Orally Active 1 tablet in Once a day the evening Ferrous ND 98120576013 325 (65 Fe) MG Active 1 tablet Sulfate Orally Once a day nexium [facility] 52588248868 Oral Active [address] [facility] 05140289222 0.01 % Active 1 drop into Ophthalmic Once affected eye a day in the evening Temovate [facility] 02586005884 0.05 % Active 1 application Externally to affected Twice a day area Aspir-[address] [facility] 53433518057 81 MG Orally Active 1 tablet Once a day Norvasc [facility] 65634413794 5 MG Orally Active 1 tablet Once a day Benzonatate ND 62423789332 200 MG Orally Oct 09, Oct 19, Active 1 capsule Three times a 20172017 Furosemide ND 18450733370 20 MG Orally Active 1 tablet Once a day Results No Known Results Summary Purpose eClinicalWorks Submission
--- OUTSIDE RECORDS SUMMARY | 2019-01-03 19:19 | XMS REPORT ---
[...] End Status Dosage System Date Date Ferrous [facility] 61875494988 325 (65 Fe) MG Active 1 tablet Sulfate Orally Once a day Norvasc [facility] 93273297180 5 MG Orally Active 1 tablet Once a day Temovate [facility] 56972858906 0.05 % Active 1 application Externally to affected Twice a day area nexium [facility] 37605641592 Oral Active 1 tab Lisinopril [facility] 20637204790 20 MG Orally Active 1 tablet Once a day Amlodipine [facility] 50790660921 5MG Active TAKE ONE Besylate TABLET BY MOUTH ONCE DAILY Aspir-81 [facility] 39187139706 81 MG Orally Active 1 tablet Once a day Lisinopril [facility] 65723509878 20 MG Orally Active 1 tablet Once a day Lumigan [facility] 02304820646 0.01 % Active 1 drop into Ophthalmic Once affected eye a day in the evening Simvastatin [facility] 88592757993 10 MG Orally Active 1 tablet in Once a day the evening Furosemide [facility] 50520790469 20 MG Orally Active 1 tablet Once a day Results No Known Results Summary Purpose eClinicalWorks Submission
--- OUTSIDE RECORDS SUMMARY | 2019-01-03 19:19 | XMS REPORT ---
[...] to D50.0 Active chronic blood loss Assessment Non compliance w medication regimen Z91.14 Active Assessment Pulmonary hypertension I27.20 Active Assessment Benign essential HTN I10 Active Assessment Hyperlipidemia, mixed E78.2 Active Problem Pulmonary hypertension I27.20 Active Assessment Chronic renal disease N18.9 Active Problem 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 Active Medications Medication Code Code Instructions Start End Status Dosage System Date Date Simvastatin [facility] 81551346906 20 MG Orally Active 1 tablet in Once a day the evening Lisinopril [facility] 94760598602 20 MG Orally Active 1 tablet Once a day Aspir-81 [facility] 95242845966 81 MG Orally Active 1 tablet Once a day Ferrous [facility] 30073118057 325 (65 Fe) MG Active 1 tablet Sulfate Orally Once a day Furosemide ND 12255596675 20 MG Orally Active 1 tablet Once a day Lumigan [facility] 25944121390 0.01 % Active 1 drop into Ophthalmic Once affected eye a day in the evening Norvasc [facility] 87960968139 5 MG Orally Active 1 tablet Once a day Temovate [facility] 12104488359 0.05 % Active 1 application Externally to affected Twice a day area nexium [facility] 38413479327 Oral Active 1 tab Results No Known Results Summary Purpose eClinicalWorks Submission
--- OUTSIDE RECORDS SUMMARY | 2019-01-03 19:19 | XMS REPORT ---
[...] End Status Dosage System Date Date Furosemide [facility] 64594255113 20 MG Orally Active 1 tablet Once a day Ferrous [facility] 22136876908 325 (65 Fe) MG Active 1 tablet Sulfate Orally Once a day Lumigan [facility] 28934669315 0.01 % Active 1 drop into Ophthalmic Once affected eye a day in the evening Aspir-81 [facility] 68173983066 81 MG Orally Active 1 tablet Once a day Simvastatin ND 38758495122 10 MG Orally Active 1 tablet in Once a day the evening Lisinopril ND 75707083383 20 MG Orally Active 1 tablet Once a day nexium ND 65116375018 Oral Active 1 tab Amlodipine [facility] 71160328767 5MG Active TAKE ONE Besylate TABLET BY MOUTH ONCE DAILY Temovate ND 15607225229 0.05 % Active 1 application Externally to affected Twice a day area Norvasc [facility] 05844302491 5 MG Orally Active 1 tablet Once a day Results No Known Results Summary Purpose [employer]ClinicalWorks Submission
--- OUTSIDE RECORDS SUMMARY | 2019-01-03 19:19 | XMS REPORT ---
:1960 Author Organization [employer] Care Team Providers Name Role Phone Marissa Rodriguez Provider Role Unavailable Allergies No Known Allergies Problems Problem Type Condition Code Onset Dates Condition Status Problem Obesity E66.9 Active Problem Pulmonary hypertension I27.20 Active Problem 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 Active Problem Rash and nonspecific skin eruption R21 Active Assessment Essential hypertension I10 Active Problem Essential hypertension I10 Active Problem Morbid obesity E66.01 Active Problem Body mass index (BMI) of [...] Active Problem Hyperlipidemia, mixed E78.2 Active Problem Heel pain M79.673 Active Problem Varicose vein I86.8 Active Problem Benign essential HTN I10 Active Medications Medication Code System Code Instructions Start Date End Date Status Dosage Lisinopril [facility] 25098563024 20 MG Orally Once Active 1 tablet a day Results No Known Results Summary Purpose [employer]ClinicalWorks Submission
[2019-01-03] MEDS ORDERED: HYDROCODONE/APAP 5/325 MG TAB ONE (20:15)
[2019-01-03] MEDS ORDERED: COLCHICINE 0.6 MG TAB ONE (20:19)
--- NOTE | 2019-01-03 20:50 | ER ---
Nurse's Notes [facility] Name: Sergio Otero Age: 58 yrs Sex: Female : 1960 Arrival Date: 01/03/2019 Time: 19:21 Bed 25 Private MD: Marissa Rodriguez Diagnosis: Gout Presentation: 01/03 19:26 Presenting complaint: Patient states: "My big toe started hurting last night and this aj1 evening it started getting worse" Patient denies injury to right foot. Transition of care: patient was not received from another setting of care. Onset of symptoms was January 02, 2019. Risk Assessment: Do you want to hurt yourself or someone else? Patient reports no desire to harm self or others. Initial Sepsis Screen: Does the patient meet any 2 criteria? No. Patient's initial sepsis screen is negative. Does the patient have a suspected source of infection? No. Patient's initial sepsis screen is negative. Care prior to arrival: None. 19:26 Method Of Arrival: Wheelchair aj1 19:26 Acuity: SIMONE 4 aj1 Triage Assessment: 19:28 General: Appears in no apparent distress. comfortable, Behavior is calm, cooperative, aj1 appropriate for age. Pain: Complains of pain in right first toe Pain currently is 8 out of 10 on a pain scale. Quality of pain is described as sharp, Pain began 1 day ago. Is continuous, Aggravated by repositioning. Neuro: Level of Consciousness is awake, alert, obeys commands, Oriented to person, place, time, situation. Cardiovascular: Patient's skin is warm and dry. Respiratory: Airway is patent Respiratory effort is even, unlabored, Respiratory pattern is regular, symmetrical. Historical: - Allergies: 19:28 No Known Allergies; aj1 - Home Meds: 19:28 amlodipine oral [Active]; esomeprazole magnesium 40 mg Oral cpDR 1 cap once daily aj1 [Active]; Iron CR Oral [Active]; Lasix 20 mg Oral tab 1 tab once daily [Active]; losartan 25 mg Oral tab 1 tab once daily [Active]; pravastatin Oral [Active]; - PMHx: 19:28 Hyperlipidemia; Hypertension; kidney function is low; Sickle Cell Trait; aj1 - Immunization history:: Flu vaccine is up to date. - Social history:: Smoking status: Patient/guardian denies using tobacco. - Ebola Screening: : Patient denies travel to an Ebola-affected area in the 21 days before illness onset. Screenin:35 Abuse screen: Denies threats or abuse. Denies injuries from another. Nutritional ca1 screening: No deficits noted. Tuberculosis screening: No symptoms or risk factors identified. Fall Risk None identified. Assessment: 19:35 General: Appears in no apparent distress. comfortable, Behavior is calm, cooperative, ca1 appropriate for age. Pain: Complains of pain in right foot and right first toe Pain does not radiate. Pain currently is 8 out of 10 on a pain scale. Pain began 2-3 days ago. Neuro: Level of Consciousness is awake, alert, obeys commands, Oriented to person, place, time, situation. Cardiovascular: Heart tones S1 S2 present Capillary refill < 3 seconds Patient's skin is warm and dry. Respiratory: Airway is patent Respiratory effort is even, unlabored, Respiratory pattern is regular, symmetrical, Breath sounds are clear bilaterally. GI: Abdomen is flat, non-distended, Bowel sounds present X 4 quads. Abd is soft and non tender X 4 quads. : No deficits noted. No signs and/or symptoms were reported regarding the genitourinary system. EENT: No deficits noted. No signs and/or symptoms were reported regarding the EENT system. Derm: Skin is intact, is healthy with good turgor, Skin is pink, warm \\T\\ dry. Musculoskeletal: Circulation, motion, and sensation intact. Capillary refill < 3 seconds. 20:55 Reassessment: Patient appears in no apparent distress at this time. Patient and/or ca1 family updated on plan of care and expected duration. Pain level reassessed. Patient is alert, oriented x 3, equal unlabored respirations, skin warm/dry/pink. Vital Signs: 19:28 BP 169 / 89; Pulse 89; Resp 18; Temp 98.9; Pulse Ox 100% on R/A; Weight 114.76 kg (R); aj1 Height 5 ft. 7 in. (170.18 cm) (R); Pain 8/10; 19:32 BP 155 / 95; Pulse 85; Resp 18; Pulse Ox 100% on R/A; Pain 9/10; jp3 19:32 BP 153 / 100 RA (auto/lg); Pain 9/10; jp3 20:55 BP 148 / 92; Pulse 86; Resp 19; Pulse Ox 100% on R/A; ca1 19:28 Body Mass Index 39.62 (114.76 kg, 170.18 cm) aj1 ED Course: 19:21 Patient arrived in ED. am2 19:21 Marissa Rodriguez MD is Private Physician. am2 19:27 Triage completed. aj1 19:28 Arm band placed on Patient placed in an exam room. aj1 19:35 Patient has correct armband on for positive identification. Bed in low position. Call ca1 light in reach. Side rails up X 1. Pulse ox on. NIBP on. Pillow given. 19:35 Warm blanket given. Pillow given. ca1 19:43 Fla[facility] Lopes [facility]C [facility]. snw 19:43 Bonilla Alcantara MD is Attending Physician. snw 19:46 China Galan RN is Primary Nurse. ca1 20:48 Marissa Rodriguez MD is Referral Physician. snw 21:00 Kai wrap to right foot and right first toe Ortho shoe applied to right foot. ca1 21:06 No provider procedures requiring assistance completed. Patient did not have IV access ca1 during this emergency room visit. Administered Medications: 19:55 Drug: Gardner 5 mg-325 mg 1 tabs Route: PO; ca1 20:57 Follow up: Response: No adverse reaction; Pain is decreased ca1 19:56 Drug: Colcrys 1.2 mg Route: PO; ca1 20:57 Follow up: Response: No adverse reaction; Pain is decreased ca1 Outcome: 20:49 Discharge ordered by MD. snw 21:06 Discharged to home via wheelchair. ca1 21:06 Condition: stable 21:06 Discharge instructions given to patient, Instructed on discharge instructions, follow up and referral plans. Demonstrated understanding of instructions, follow-up care, medications, Prescriptions given X 1. 21:14 Patient left the ED. ca1 Signatures: Maryellen Anand RN RN aj1 Flaquita Lopes FNP-C PAD MACHINE FEEDER-Csnw Madonna Figueroa am2 Raúl Mar jp3 China Galan RN RN ca1
--- NOTE | 2019-01-03 20:50 | EDPHYS ---
Physician Documentation [facility] Name: Sergio Otero Age: 58 yrs Sex: Female : 1960 Arrival Date: 01/03/2019 Time: 19:21 Bed 25 Private MD: Marissa Rodriguez ED Physician Bonilla Alcantara HPI: 01/03 19:55 This 58 yrs old Black Female presents to ER via Wheelchair with complaints of Foot Pain snw - Toe pain. 19:55 The patient presents with decreased range of motion, pain. The complaints affect the snw right first toe. Context: The problem was sustained at home, resulted from an unknown cause, the patient can partially bear weight, the patient is able to ambulate, Problem is a result from a previous injury: No. Onset: The symptoms/episode began/occurred suddenly, 1 day(s) ago, and became worse just prior to arrival, and became persistent. Associated signs and symptoms: The patient has no apparent associated signs or symptoms. Treatment prior to arrival includes: no previous treatment. Severity of symptoms: At their worst the symptoms were moderate, severe. The patient has not experienced similar symptoms in the past. It is unknown whether or not the patient has recently seen a physician. sees Dr. Luna yearly GFR 70s. Historical: - Allergies: 19:28 No Known Allergies; aj1 - Home Meds: 19:28 amlodipine oral [Active]; esomeprazole magnesium 40 mg Oral cpDR 1 cap once daily aj1 [Active]; Iron CR Oral [Active]; Lasix 20 mg Oral tab 1 tab once daily [Active]; losartan 25 mg Oral tab 1 tab once daily [Active]; pravastatin Oral [Active]; - PMHx: 19:28 Hyperlipidemia; Hypertension; kidney function is low; Sickle Cell Trait; aj1 - Immunization history:: Flu vaccine is up to date. - Social history:: Smoking status: Patient/guardian denies using tobacco. - Ebola Screening: : Patient denies travel to an Ebola-affected area in the 21 days before illness onset. ROS: 19:49 Constitutional: Negative for fever, chills, and weight loss, Eyes: Negative for injury, snw pain, redness, and discharge, ENT: Negative for injury, pain, and discharge, Neck: Negative for injury, pain, and swelling, Cardiovascular: Negative for chest pain, palpitations, and edema, Respiratory: Negative for shortness of breath, cough, wheezing, and pleuritic chest pain, Abdomen/GI: Negative for abdominal pain, nausea, vomiting, diarrhea, and constipation, Back: Negative for injury and pain, : Negative for injury, bleeding, discharge, and swelling, Skin: Negative for injury, rash, and discoloration, Neuro: Negative for headache, weakness, numbness, tingling, and seizure, Psych: Negative for depression, anxiety, suicide ideation, homicidal ideation, and hallucinations. 19:49 MS/extremity: Positive for pain, tenderness, of the right first toe. Exam: 19:49 Constitutional: This is a well developed, well nourished patient who is awake, alert, snw and in no acute distress. Head/Face: Normocephalic, atraumatic. Eyes: Pupils equal round and reactive to light, extra-ocular motions intact. Lids and lashes normal. Conjunctiva and sclera are non-icteric and not injected. Cornea within normal limits. Periorbital areas with no swelling, redness, or edema. ENT: Nares patent. No nasal discharge, no septal abnormalities noted. Tympanic membranes are normal and external auditory canals are clear. Oropharynx with no redness, swelling, or masses, exudates, or evidence of obstruction, uvula midline. Mucous membranes moist. Neck: Trachea midline, no thyromegaly or masses palpated, and no cervical lymphadenopathy. Supple, full range of motion without nuchal rigidity, or vertebral point tenderness. No Meningismus. Chest/axilla: Normal chest wall appearance and motion. Nontender with no deformity. No lesions are appreciated. Cardiovascular: Regular rate and rhythm with a normal S1 and S2. No gallops, murmurs, or rubs. Normal PMI, no JVD. No pulse deficits. Respiratory: Lungs have equal breath sounds bilaterally, clear to auscultation and percussion. No rales, rhonchi or wheezes noted. No increased work of breathing, no retractions or nasal flaring. Abdomen/GI: Soft, non-tender, with normal bowel sounds. No distension or tympany. No guarding or rebound. No evidence of tenderness throughout. Back: No spinal tenderness. No costovertebral tenderness. Full range of motion. Skin: Warm, dry with normal turgor. Normal color with no rashes, no lesions, and no evidence of cellulitis. Neuro: Awake and alert, GCS 15, oriented to person, place, time, and situation. Cranial nerves II-XII grossly intact. Motor strength 5/5 in all extremities. Sensory grossly intact. Cerebellar exam normal. Normal gait. Psych: Awake, alert, with orientation to person, place and time. Behavior, mood, and affect are within normal limits. 19:49 Musculoskeletal/extremity: Extremities: grossly normal except: noted in the right first toe: decreased ROM, pain, ROM: limited active range of motion due to pain, limited passive range of motion due to pain, Circulation is intact in all extremities. Sensation intact. Vital Signs: 19:28 BP 169 / 89; Pulse 89; Resp 18; Temp 98.9; Pulse Ox 100% on R/A; Weight 114.76 kg (R); aj1 Height 5 ft. 7 in. (170.18 cm) (R); Pain 8/10; 19:32 BP 155 / 95; Pulse 85; Resp 18; Pulse Ox 100% on R/A; Pain 9/10; jp3 19:32 BP 153 / 100 RA (auto/lg); Pain 9/10; jp3 20:55 BP 148 / 92; Pulse 86; Resp 19; Pulse Ox 100% on R/A; ca1 19:28 Body Mass Index 39.62 (114.76 kg, 170.18 cm) aj1 MDM: 19:45 Patient medically screened. snw 20:50 Data reviewed: vital signs, nurses notes. Data interpreted: Pulse oximetry: on room air snw is 100 %. Interpretation: normal. Counseling: I had a detailed discussion with the patient and/or guardian regarding: the historical points, exam findings, and any diagnostic results supporting the discharge/admit diagnosis, the need for outpatient follow up, to return to the emergency department if symptoms worsen or persist or if there are any questions or concerns that arise at home. Special discussion: I have referred the patient to see his PCP for further evaluation of high blood pressure. Based on the history and exam findings, there is no indication for further emergent testing or inpatient evaluation. I discussed with the patient/guardian the need to see the orthopedic surgeon for further evaluation of the symptoms. I discussed with the patient/guardian the need to see the primary care provider for further evaluation of the symptoms. 01/03 20:50 Order name: Kai wrap-joint; Complete Time: 20:54 snw 01/03 20:50 Order name: Post-op Orthopedic Shoe; Complete Time: 20:54 snw Administered Medications: 19:55 Drug: [place] 5 mg-325 mg 1 tabs Route: PO; ca1 20:57 Follow up: Response: No adverse reaction; Pain is decreased ca1 19:56 Drug: Colcrys 1.2 mg Route: PO; ca1 20:57 Follow up: Response: No adverse reaction; Pain is decreased ca1 Disposition: 23:35 Co-signature as Attending Physician, Bonilla Alcantara MD I agree with the assessment and kdr plan of care. Disposition: 01/03/19 20:49 Discharged to Home. Impression: Gout. - Condition is Stable. - Discharge Instructions: Elastic Bandage and RICE, Gout, Low-Purine Diet. - Prescriptions for Tylenol- Codeine #3 300-30 mg Oral Tablet - take 2 tablets by ORAL route every 6 hours As needed; 16 tablet. - Medication Reconciliation Form, Thank You Letter, Antibiotic Education, Prescription Opioid Use form. - Follow up: Marissa Rodriguez MD; When: 2 - 3 days; Reason: Recheck today's complaints, Continuance of care, Re-evaluation by your physician. Follow up: Emergency Department; When: As needed; Reason: Worsening of condition. Signatures: Maryellen Anand RN RN aj1 Bonilla Alcantara MD MD [facility] Flaquita Lopes, INTEGRITY SPECIALIST-C INTEGRITY SPECIALIST-Csnw China Galan RN RN ca1 Corrections: (The following items were deleted from the chart) 21:14 20:49 01/03/2019 20:49 Discharged to Home. Impression: Gout. Condition is Stable. Forms ca1 are Medication Reconciliation Form, Thank You Letter, Antibiotic Education, Prescription Opioid Use. Follow up: Marissa Rodriguez; When: 2 - 3 days; Reason: Recheck today's complaints, Continuance of care, Re-evaluation by your physician. Follow up: Emergency Department; When: As needed; Reason: Worsening of condition. snw
[2019-01-03 21:28] VITALS: TEMP 98.9; O2SAT 100
[2019-01-03 21:29] VITALS: BP 153/100
== END 2019-01-03 21:14 | disposition home or self-care (01) ==
LOC: ER 19:16
DX: M10.9 Gout, unspecified (principal); E78.5 Hyperlipidemia, unspecified; I10 Essential (primary) hypertension; D57.3 Sickle-cell trait
CPT/HCPCS: 99284

== ENCOUNTER 2019-05-26 08:30 | Emergency (ER) | payer OTHER ==
--- OUTSIDE RECORDS SUMMARY | 2019-05-26 08:38 | XMS REPORT ---
[...] Status Dosage System Date Date Simvastatin ND 91978320569 20 MG Orally Active 1 tablet in Once a day the evening Lumigan ND 88294251821 0.01 % Active 1 drop into Ophthalmic Once affected eye a day in the evening Triamcinolone ND 76467094559 0.1 % December Active 1 application Acetonide Externally 06, to affected Twice a day 2019 area Norvasc [facility] 45133811116 5 MG Orally Active 1 tablet Once a day Furosemide [facility] 11774701006 20 MG Orally Active 1 tablet Once a day nexium [facility] 08980195125 Oral Active 1 tab Aspir-81 [facility] 73594274317 81 MG Orally Active 1 tablet Once a day Temovate [facility] 72585711832 0.05 % Active 1 application Externally to affected Twice a day area Lisinopril [facility] 42977144610 20 MG Orally Active 1 tablet Once a day Ferrous Sulfate [facility] 72645887425 325 (65 Fe) MG Active 1 tablet Orally Once a day Results No Known Results Summary Purpose eClinicalWorks Submission
--- OUTSIDE RECORDS SUMMARY | 2019-05-26 08:38 | XMS REPORT ---
[...] End Status Dosage System Date Date Simvastatin [facility] 72854411985 20 MG Orally Active 1 tablet in Once a day the evening Lisinopril [facility] 52413784805 20 MG Orally Active 1 tablet Once a day Aspir-81 [facility] 23867084191 81 MG Orally Active 1 tablet Once a day Ferrous [facility] 61126012704 325 (65 Fe) MG Active 1 tablet Sulfate Orally Once a day Furosemide ND 40093803726 20 MG Orally Active 1 tablet Once a day Lumigan [facility] 51702239181 0.01 % Active 1 drop into Ophthalmic Once affected eye a day in the evening Norvasc [facility] 61914038118 5 MG Orally Active 1 tablet Once a day Temovate [facility] 21203226282 0.05 % Active 1 application Externally to affected Twice a day area nexium [facility] 80510186689 Oral Active 1 tab Results No Known Results Summary Purpose eClinicalWorks Submission
--- OUTSIDE RECORDS SUMMARY | 2019-05-26 08:38 | XMS REPORT ---
[...] Status Dosage System Date Date Ferrous [facility] 11458516789 325 (65 Fe) MG Active 1 tablet Sulfate Orally Once a day Norvasc [facility] 70723400781 5 MG Orally Active 1 tablet Once a day Temovate [facility] 78646475706 0.05 % Active 1 application Externally to affected Twice a day area nexium [facility] 67868999401 Oral Active 1 tab Lisinopril [facility] 87077820006 20 MG Orally Active 1 tablet Once a day Amlodipine [facility] 66554243984 5MG Active TAKE ONE Besylate TABLET BY MOUTH ONCE DAILY Aspir-81 [facility] 49485112386 81 MG Orally Active 1 tablet Once a day Lisinopril [facility] 09889430105 20 MG Orally Active 1 tablet Once a day Lumigan [facility] 66683138479 0.01 % Active 1 drop into Ophthalmic Once affected eye a day in the evening Simvastatin [facility] 25275174790 10 MG Orally Active 1 tablet in Once a day the evening Furosemide [facility] 26947821271 20 MG Orally Active 1 tablet Once a day Results No Known Results Summary Purpose eClinicalWorks Submission
--- OUTSIDE RECORDS SUMMARY | 2019-05-26 08:38 | XMS REPORT ---
[...] Start Date End Date Status Dosage Lisinopril [facility] 51692684491 20 MG Orally Once Active 1 tablet a day Results No Known Results Summary Purpose eClinicalWorks Submission
--- OUTSIDE RECORDS SUMMARY | 2019-05-26 08:38 | XMS REPORT ---
[...] End Status Dosage System Date Date Lisinopril [facility] 83681925551 20 MG Orally Active 1 tablet [facility] MG Orally Active 1 tablet Once a day Simvastatin ND 96157639140 20 MG Orally Active 1 tablet in Once a day the evening Ferrous ND 32959568269 325 (65 Fe) MG Active 1 tablet Sulfate Orally Once a day nexium [facility] 74135733027 Oral Active 1 tab Lumigan [facility] 22127556417 0.01 % Active 1 drop into Ophthalmic Once affected eye a day in the evening Temovate [facility] 56569182733 0.05 % Active 1 application Externally to affected Twice a day area Aspir-81 [facility] 45873313118 81 MG Orally Active 1 tablet Once a day Norvasc [facility] 16963820056 5 MG Orally Active 1 tablet Once a day Benzonatate ND 72222173160 200 MG Orally Oct 09, Oct 19, Active 1 capsule Three times a 20172017 Furosemide ND 99038645250 20 MG Orally Active 1 tablet Once a day Results No Known Results Summary Purpose eClinicalWorks Submission
--- OUTSIDE RECORDS SUMMARY | 2019-05-26 08:39 | XMS REPORT ---
:1960 Author Organization eClinicalWorks Care Team Providers Name Role Phone Marissa Rodriguez Provider Role Unavailable Allergies, Adverse Reactions, Alerts Substance Reaction Event Type N.K.D.A. Info Not Available Non Drug Allergy Problems Problem Type Condition Code Onset Dates Condition Status Assessment Generalized weakness R53.1 Active Assessment Polyarthralgia M25.50 Active Assessment Chronic kidney disease, unspecified N18.9 Active CKD stage Assessment Hyperuricemia E79.0 Active Problem Rash and nonspecific skin eruption R21 Active Problem Iron deficiency anemia, unspecified D50.9 Active iron deficiency anemia type Problem Pulmonary hypertension I27.20 Active Problem Morbid (severe) obesity due to E66.01 Active excess calories Problem Morbid obesity E66.01 Active Problem Essential hypertension I10 Active Problem Hyperuricemia E79.0 Active Problem Generalized weakness R53.1 Active Problem Benign essential HTN I10 Active Problem Iron deficiency anemia due to D50.0 Active chronic blood loss Problem Polyarthralgia M25.50 Active Problem Sickle-cell trait D57.3 Active Problem Body mass index (BMI) of 40.0-44.9 Z68.41 Active in adult Problem Acute midline low back pain with M54.42 Active left-sided sciatica Problem Chronic kidney disease, unspecified N18.9 Active CKD stage Problem Acute gout of right foot, M10.9 Active unspecified cause Problem Colon polyp K63.5 Active Problem Hyperlipidemia, mixed E78.2 Active Problem Obesity E66.9 Active Problem 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 Active Problem Glaucoma H40.9 Active Problem Heel pain M79.673 Active Problem Varicose vein I86.8 Active Problem Chronic renal disease N18.9 Active Medications Medication Code Code Instructions Start End Status Dosage System Date [facility] 19670159619 81 MG Orally Active 1 tablet Once a day Arthur [facility] 98560203350 0.01 % Active 1 drop into Ophthalmic affected eye Once a day in the evening Ferrous Sulfate [facility] 53421764579 325 (65 Fe) MG Active 1 tablet Orally Once a day Simvastatin [facility] 98228291740 20 MG Orally Active 1 tablet in Once a day the evening Triamcinolone [facility] 87492420411 0.1 % December Active 1 application Acetonide Externally , to affected Twice a day 2019 area nexium [facility] 49900136216 Oral Active 1 tab Norvasc [facility] 31793921705 5 MG Orally Active 1 tablet Once a day Lisinopril [facility] 81642317639 20 MG Orally Active 1 tablet Once a day Uloric [facility] 80075992714 40 MG Orally December Active 1 tablet Once a day for 29, 27, high uric acid 2018 2018 level Furosemide [facility] 78853329582 20 MG Orally Active 1 tablet Once a day Tylenol # 3 ND 0 300/30mg December Active 1 tablet Orally Every 20, 30, 4-6 hours as 2018 2019 needed Temovate [facility] 41001915511 0.05 % Active 1 application Externally to affected Twice a day area Results No Known Results Summary Purpose eClinicalWorks Submission
--- OUTSIDE RECORDS SUMMARY | 2019-05-26 08:39 | XMS REPORT ---
:1960 Author Organization eClinicalWorks Care Team Providers Name Role Phone Marissa Rodriguez Provider Role Unavailable Allergies No Known Allergies Problems Problem Type Condition Code Onset Dates Condition Status Problem Pulmonary hypertension I27.20 Active Problem Rash and nonspecific skin eruption R21 Active Problem Acute midline low back pain with M54.42 Active left-sided sciatica Problem 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 Active Problem Body mass index (BMI) of 40.0-44.9 Z68.41 Active in adult Problem Morbid (severe) obesity due to E66.01 Active excess calories Problem Iron deficiency anemia, unspecified D50.9 Active iron deficiency anemia type Problem Hyperuricemia E79.0 Active Problem Generalized weakness R53.1 Active Problem Varicose vein I86.8 Active Problem Hyperlipidemia, mixed E78.2 Active Problem Left foot pain M79.672 Active Problem Colon polyp K63.5 Active Problem Acute gout of right foot, M10.9 Active unspecified cause Problem Morbid obesity E66.01 Active Problem Polyarthralgia M25.50 Active Problem Chronic kidney disease, unspecified N18.9 Active CKD stage Problem Heel pain M79.673 Active Problem Sickle-cell trait D57.3 Active Problem Chronic renal disease N18.9 Active Problem Glaucoma H40.9 Active Problem Obesity E66.9 Active Problem Essential hypertension I10 Active Problem Iron deficiency anemia due to D50.0 Active chronic blood loss Problem Benign essential HTN I10 Active Medications No Known Medications Results No Known Results Summary Purpose eClinicalWorks Submission
--- OUTSIDE RECORDS SUMMARY | 2019-05-26 08:39 | XMS REPORT ---
:1960 Author Organization eClinicalWorks Care Team Providers Name Role Phone Marissa Rodriguez Provider Role Unavailable Allergies No Known Allergies Problems Problem Type Condition Code Onset Dates Condition Status Assessment Encounter for screening mammogram Z12.31 Active for malignant neoplasm of breast Problem Rash and nonspecific skin eruption R21 [...] Medications Results No Known Results Summary Purpose [employer] Submission
--- OUTSIDE RECORDS SUMMARY | 2019-05-26 08:39 | XMS REPORT ---
:1960 Author Organization eClinicalWorks Care Team Providers Name Role Phone Marissa Rodriguez Provider Role Unavailable Allergies No Known Allergies Problems Problem Type Condition Code Onset Dates Condition Status Problem Morbid (severe) obesity due to E66.01 Active excess calories Problem Morbid obesity E66.01 Active Problem Essential hypertension I10 Active Problem Hyperuricemia E79.0 Active Problem Benign essential HTN I10 Active Problem Generalized weakness R53.1 Active Problem Iron deficiency anemia due to D50.0 Active chronic blood loss Problem Sickle-cell trait D57.3 Active Problem Polyarthralgia M25.50 Active Problem Body mass index (BMI) of [...] Active Problem Varicose vein I86.8 Active Problem Rash and nonspecific skin eruption R21 Active Problem Pulmonary hypertension I27.20 Active Problem Chronic renal disease N18.9 Active Problem Iron deficiency anemia, unspecified D50.9 Active iron deficiency anemia type Medications No Known Medications Results No Known Results Summary Purpose [employer] Submission
--- OUTSIDE RECORDS SUMMARY | 2019-05-26 08:39 | XMS REPORT ---
:1960 Author Organization eClinicalWorks Care Team Providers Name Role Phone Marissa Rodriguez Provider Role Unavailable Allergies No Known Allergies Problems Problem Type Condition Code Onset Dates Condition Status Problem Glaucoma H40.9 Active Problem Rash and nonspecific skin eruption R21 Active Problem Heel pain M79.673 Active Problem Body mass index (BMI) of 40.0-44.9 Z68.41 Active in adult Problem Acute midline low back pain with M54.42 Active left-sided sciatica Problem Acute gout of right foot, M10.9 Active unspecified cause Problem Iron deficiency anemia, unspecified D50.9 Active iron deficiency anemia type Problem Morbid obesity E66.01 Active Problem Essential hypertension I10 Active Problem Morbid (severe) obesity due to E66.01 Active excess calories Problem Obesity E66.9 Active Problem 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
--- OUTSIDE RECORDS SUMMARY | 2019-05-26 08:39 | XMS REPORT ---
[...] pain with M54.42 Active left-sided sciatica Assessment Acute gout of right foot, M10.9 Active unspecified cause Assessment Follow-up exam Z09 Active Problem Acute gout of right foot, [...] D57.3 Active Problem Varicose vein I86.8 Active Assessment Chronic renal disease N18.9 Active Problem Iron deficiency anemia due to D50.0 Active chronic blood loss Problem Chronic renal disease N18.9 Active Medications Medication Code Code Instructions Start End Status Dosage System Date Date nexium NDC 67400909961 Oral Active 1 tab Triamcinolone ND 39366568790 0.1 % December Active 1 application Acetonide Externally 06, to affected Twice a day 2019 area Furosemide NDC 66426126713 20 MG Orally Active 1 tablet Once a day Norvasc ND 62362049776 5 MG Orally Active 1 tablet Once a day Tylenol # 3 NDC 0 300/30mg December Active 1 tablet Orally Every 20, 30, 4-6 hours as 2019 2019 needed Lisinopril NDC 92917381102 20 MG Orally Active 1 tablet Once a day Lumigan [facility] 91375964001 0.01 % Active 1 drop into Ophthalmic affected eye Once a day in the evening Aspir-[address] [facility] 78426733228 81 MG Orally Active 1 tablet Once a day Temovate [facility] 10823881827 0.05 % Active 1 application Externally to affected Twice a day area Simvastatin [facility] 46169991365 20 MG Orally Active 1 tablet in Once a day the evening Ferrous Sulfate [facility] 58228419865 325 (65 Fe) MG Active 1 tablet Orally Once a day Results No Known Results Summary Purpose eClinicalWorks Submission
--- NOTE | 2019-05-26 09:08 | ER ---
Nurse's Notes [facility] Name: Sergio Otero Age: 58 yrs Sex: Female : 1960 Arrival Date: 05/26/2019 Time: 08:35 Bed 18 Private MD: Marissa Rodriguez Diagnosis: Tinea corporis Presentation: 05/26 08:44 Presenting complaint: Patient states: Rash to L leg that began 3 days ago. Patient ss reports that it was itchy at first, but now it is sore and black. Transition of care: patient was not received from another setting of care. Onset of symptoms was May 23, 2019. Risk Assessment: Do you want to hurt yourself or someone else? Patient reports no desire to harm self or others. Initial Sepsis Screen: Does the patient meet any 2 criteria? No. Patient's initial sepsis screen is negative. Does the patient have a suspected source of infection? No. Patient's initial sepsis screen is negative. Care prior to arrival: None. 08:44 Acuity: SIMONE 4 ss 08:44 Method Of Arrival: Ambulatory Triage Assessment: 08:45 General: Appears in no apparent distress. comfortable, obese, Behavior is calm, bp cooperative, appropriate for age. Pain: Denies pain. EENT: No deficits noted. Neuro: No deficits noted. Cardiovascular: No deficits noted. Respiratory: No deficits noted. GI: No signs and/or symptoms were reported involving the gastrointestinal system. : No signs and/or symptoms were reported regarding the genitourinary system. Derm: Rash noted that is itchy. Musculoskeletal: No deficits noted. Historical: - Allergies: 08:49 No Known Allergies; ss - PMHx: 08:49 Hyperlipidemia; Hypertension; kidney function is low; Sickle Cell Trait; Gout; ss - Immunization history:: Adult Immunizations up to date. - Social history:: Smoking status: Patient/guardian denies using tobacco. - Ebola Screening: : Patient denies exposure to infectious person Patient denies travel to an Ebola-affected area in the 21 days before illness onset. Screenin:49 Abuse screen: Denies threats or abuse. Denies injuries from another. Nutritional bp screening: No deficits noted. Tuberculosis screening: No symptoms or risk factors identified. Fall Risk None identified. Assessment: 08:45 General: SEE TRIAGE NOTE. bp 09:04 Reassessment: PT D/C HOME AMBULATORY, DX WITH TINEA CORPORIS. bp Vital Signs: 08:49 BP 144 / 94; Pulse 81; Resp 16; Temp 98.9(TE); Pulse Ox 99% on R/A; Weight 111.13 kg; ss Height 5 ft. 7 in. (170.18 cm); Pain 6/10; 08:49 Body Mass Index 38.37 (111.13 kg, 170.18 cm) ED Course: 08:35 Patient arrived in ED. mr 08:35 Marissa Rodriguez MD is Private Physician. mr 08:38 Erwin Cassidy, RN is Primary Nurse. bp 08:45 Triage completed. ss 08:46 [facility] pm1 08:46 Salomon Tang MD is Attending Physician. pm1 08:49 Patient has correct armband on for positive identification. Bed in low position. Call bp light in reach. Side rails up X2. 08:49 Arm band placed on right wrist. ss 09:04 No provider procedures requiring assistance completed. Patient did not have IV access bp during this emergency room visit. Administered Medications: No medications were administered Outcome: 08:56 Discharge ordered by MD. pm1 09:05 Discharged to home ambulatory. bp 09:05 Condition: stable 09:05 Discharge instructions given to patient, Instructed on discharge instructions, follow up and referral plans. medication usage, Demonstrated understanding of instructions, follow-up care, medications, Prescriptions given X 1. 09:05 Patient left the ED. bp Signatures: Monse Jon Stacey Harden RN RN Arsen Mathis NP CHICKEN TENDER pm1 Erwin Cassidy, AMBER RN bp
--- NOTE | 2019-05-26 09:08 | EDPHYS ---
Physician Documentation [facility] Name: Sergio Otero Age: 58 yrs Sex: Female : 1960 Arrival Date: 05/26/2019 Time: 08:35 Bed 18 Private MD: Marissa Rodriguez ED Physician Salomon Tang HPI: 05/26 08:55 This 58 yrs old Black Female presents to ER via Ambulatory with complaints of Rash. pm1 08:55 The patient's rash thought to be caused by an unknown cause. The rash is located on the pm1 lateral aspect of left calf. The rash can be described as plaque-like, raised. Onset: The symptoms/episode began/occurred 3 day(s) ago. Associated signs and symptoms: Pertinent positives: itching, Pertinent negatives: fever. Severity of symptoms: in the emergency department the symptoms are worse. Treatment given at home: vitamin C oil. The patient has not experienced similar symptoms in the past. The patient has not recently seen a physician. Patient with onset of itchy rash to left leg three days ago. No improvement with vitamin C oils applied. Patient without any swelling or pain to leg. Historical: - Allergies: 08:49 No Known Allergies; ss - PMHx: 08:49 Hyperlipidemia; Hypertension; kidney function is low; Sickle Cell Trait; Gout; ss - Immunization history:: Adult Immunizations up to date. - Social history:: Smoking status: Patient/guardian denies using tobacco. - Ebola Screening: : Patient denies exposure to infectious person Patient denies travel to an Ebola-affected area in the 21 days before illness onset. ROS: 08:55 Constitutional: Negative for fever, chills, and weight loss, Eyes: Negative for injury, pm1 pain, redness, and discharge, ENT: Negative for injury, pain, and discharge, Neck: Negative for injury, pain, and swelling, Cardiovascular: Negative for chest pain, palpitations, and edema, Respiratory: Negative for shortness of breath, cough, wheezing, and pleuritic chest pain, Abdomen/GI: Negative for abdominal pain, nausea, vomiting, diarrhea, and constipation, Back: Negative for injury and pain, : Negative for injury, bleeding, discharge, and swelling, MS/Extremity: Negative for injury and deformity. 08:55 Neuro: Negative for headache, weakness, numbness, tingling, and seizure. 08:55 Skin: Positive for rash, of the lateral aspect of left calf. Exam: 08:55 Constitutional: This is a well developed, well nourished patient who is awake, alert, pm1 and in no acute distress. Head/Face: Normocephalic, atraumatic. Neck: Trachea midline, no thyromegaly or masses palpated, and no cervical lymphadenopathy. Supple, full range of motion without nuchal rigidity, or vertebral point tenderness. No Meningismus. Chest/axilla: Normal chest wall appearance and motion. Nontender with no deformity. No lesions are appreciated. Cardiovascular: Regular rate and rhythm with a normal S1 and S2. No gallops, murmurs, or rubs. Normal PMI, no JVD. No pulse deficits. Respiratory: Lungs have equal breath sounds bilaterally, clear to auscultation and percussion. No rales, rhonchi or wheezes noted. No increased work of breathing, no retractions or nasal flaring. Abdomen/GI: Soft, non-tender, with normal bowel sounds. No distension or tympany. No guarding or rebound. No evidence of tenderness throughout. Back: No spinal tenderness. No costovertebral tenderness. Full range of motion. 08:55 Skin: Appearance: normal except for affected area, consistent with tinea, on the lateral aspect of left calf. Vital Signs: 08:49 BP 144 / 94; Pulse 81; Resp 16; Temp 98.9(TE); Pulse Ox 99% on R/A; Weight 111.13 kg; ss Height 5 ft. 7 in. (170.18 cm); Pain 6/10; 08:49 Body Mass Index 38.37 (111.13 kg, 170.18 cm) ss MDM: 08:55 Patient medically screened. pm1 08:55 Data reviewed: vital signs. Data interpreted: Pulse oximetry: on room air is 99 %. pm1 Interpretation: normal. Counseling: I had a detailed discussion with the patient and/or guardian regarding: the historical points, exam findings, and any diagnostic results supporting the discharge/admit diagnosis, the need for outpatient follow up, to return to the emergency department if symptoms worsen or persist or if there are any questions or concerns that arise at home. Administered Medications: No medications were administered Disposition: 05/27 07:45 Co-signature as Attending Physician, Salomon Tang MD I agree with the assessment and wa plan of care. Disposition: 05/26/19 08:56 Discharged to Home. Impression: Tinea corporis. - Condition is Stable. - Discharge Instructions: Body Ringworm. - Prescriptions for Lotrisone 1- 0.05 % Topical cream - apply 1 application by TOPICAL route 2 times per day for 2 weeks; 1 tube. - Medication Reconciliation Form, Thank You Letter, Antibiotic Education, Prescription Opioid Use form. - Follow up: Emergency Department; When: As needed; Reason: Worsening of condition. Follow up: Private Physician; When: 2 - 3 days; Reason: Recheck today's complaints, Continuance of care, Re-evaluation by your physician. - Problem is new. - Symptoms have improved. Signatures: Stacey Harden, RN RN Arsen Mathis, PATTERN PUNCHER PATTERN PUNCHER pm1 Salomon Tang MD MD wa Peltier, Brian RN RN bp Corrections: (The following items were deleted from the chart) 05/26 09:05 08:56 05/26/2019 08:56 Discharged to Home. Impression: Tinea corporis. Condition is bp Stable. Forms are Medication Reconciliation Form, Thank You Letter, Antibiotic Education, Prescription Opioid Use. Follow up: Emergency Department; When: As needed; Reason: Worsening of condition. Follow up: Private Physician; When: 2 - 3 days; Reason: Recheck today's complaints, Continuance of care, Re-evaluation by your physician. Problem is new. Symptoms have improved. pm1
[2019-05-26 09:11] VITALS: BP 144/94; TEMP 98.9; O2SAT 99
== END 2019-05-26 09:05 | disposition home or self-care (01) ==
LOC: ER 08:30
DX: B35.4 Tinea corporis (principal); I10 Essential (primary) hypertension
CPT/HCPCS: 99282

== ENCOUNTER 2019-12-22 08:13 | Emergency (ER) | payer OTHER ==
--- OUTSIDE RECORDS SUMMARY | 2019-12-22 08:16 | XMS REPORT ---
:1960 Author Organization eClinicalWorks Care Team Providers Name Role Phone Marissa Rodriguez Provider Role Unavailable Allergies No Known Allergies Problems Problem Type Condition Code Onset Dates Condition Status Problem Pulmonary hypertension I27.20 Active Problem 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 Active Problem Colon polyp K63.5 Active Problem Hyperlipidemia, mixed E78.2 Active Problem Body mass index (BMI) of 40.0-44.9 Z68.41 Active in adult Problem Iron deficiency anemia, unspecified D50.9 Active iron deficiency anemia type Problem Varicose vein I86.8 Active Problem Morbid obesity E66.01 Active Problem Polyarthralgia M25.50 Active Problem Acute gout of right foot, M10.9 Active unspecified cause Problem Diverticulosis large intestine w/o K57.30 Active perforation or abscess w/o bleeding Problem Polyp of colon, unspecified part of K63.5 Active colon, unspecified type Problem Heel pain M79.673 Active Problem Glaucoma H40.9 Active Problem Diverticulosis K57.90 Active Problem Chronic renal disease N18.9 Active Problem Hyperuricemia E79.0 Active Problem Generalized weakness R53.1 Active Problem Left foot pain M79.672 Active Problem Chronic kidney disease, unspecified N18.9 Active CKD stage Problem Benign essential HTN I10 Active Problem Obesity E66.9 Active Problem Sickle-cell trait D57.3 Active Problem Iron deficiency anemia due to D50.0 Active chronic blood loss Problem Morbid (severe) obesity due to E66.01 Active excess calories Problem Acute midline low back pain with M54.42 Active left-sided sciatica Problem Essential hypertension I10 Active Problem Rash and nonspecific skin eruption R21 Active Medications No Known Medications Results No Known Results Summary Purpose [employer]ClinicalWorks Submission
--- OUTSIDE RECORDS SUMMARY | 2019-12-22 08:17 | XMS REPORT ---
:1960 Author Organization eClinicalWorks Care Team Providers Name Role Phone Marissa Rodriguez Provider Role Unavailable Allergies, Adverse Reactions, Alerts Substance Reaction Event Type N.K.D.A. Info Not Available Non Drug Allergy Problems Problem Type Condition Code Onset Dates Condition Status Assessment Iron deficiency anemia, unspecified D50.9 Active iron deficiency anemia type Assessment Hyperuricemia E79.0 Active Assessment Rash and nonspecific skin eruption R21 Active Assessment Chronic kidney disease, unspecified N18.9 Active CKD stage Assessment Essential hypertension I10 Active Problem Pulmonary hypertension I27.20 Active Problem [...] disease, unspecified N18.9 Active CKD stage Assessment Morbid obesity E66.01 Active Problem Benign essential HTN I10 Active Assessment Hyperlipidemia, mixed E78.2 Active Problem Obesity E66.9 Active Assessment 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 Active Problem Sickle-cell trait D57.3 Active Assessment Body mass index (BMI) of 40.0-44.9 Z68.41 Active in adult Problem Iron deficiency anemia due to D50.0 Active chronic blood loss Problem Morbid (severe) obesity due to E66.01 Active excess calories Assessment Polyarthralgia M25.50 Active Problem Acute midline low back pain with M54.42 Active left-sided sciatica Problem Essential hypertension I10 Active Problem Rash and nonspecific skin eruption R21 Active Medications Medication Code Code Instructions Start End Status Dosage System Date Date [facility] 38972846529 81 MG Orally Active 1 tablet Once a day Temovate [facility] 26489753245 0.05 % Active 1 application Externally to affected Twice a day area Ferrous Sulfate [facility] 79506874142 325 (65 Fe) MG Active 1 tablet Orally Once a day nexium [facility] 84350169427 Oral Active 1 tab Norvasc [facility] 85290611569 5 MG Orally Active 1 tablet Once a day Furosemide [facility] 05566198800 20 MG Orally Active 1 tablet Once a day Uloric [facility] 37348609319 40 MG Orally Active 1 tablet Once a day for high uric acid level Simvastatin [facility] 65414761652 20 mg Orally Active 1 tablet in Once a day the evening Triamcinolone [facility] 87700191025 0.1 % December Active 1 application Acetonide Externally 06, to affected Twice a day 2019 area Lumigan [facility] 47190569042 0.01 % Active 1 drop into Ophthalmic Once affected eye a day in the evening Lisinopril [facility] 31610397923 20 MG Orally Active 1 tablet Once a day Results No Known Results Summary Purpose eClinicalWorks Submission
--- OUTSIDE RECORDS SUMMARY | 2019-12-22 08:17 | XMS REPORT ---
:1960 Author Organization [employer] Care Team Providers Name Role Phone Marissa Rodriguez Provider Role Unavailable Allergies, Adverse Reactions, Alerts Substance Reaction Event Type N.K.D.A. Info Not Available Non Drug Allergy Problems Problem Type Condition Code Onset Dates Condition Status Assessment Colon cancer screening Z12.11 Active Assessment Essential hypertension I10 Active Assessment Routine gynecological examination Z01.419 Active Problem Pulmonary hypertension I27.20 Active Problem [...] Start End Status Dosage System Date Date Arthur [facility] 80133390232 0.01 % Active 1 drop into Ophthalmic Once affected eye a day in the evening nexium [facility] 96637421004 Oral Active [address] [facility] 72512987110 20 MG Orally Active 1 tablet Once a day Simvastatin [facility] 67326832330 20 mg Orally Active 1 tablet in Once a day the evening Aspir-[address] [facility] 74484064819 81 MG Orally Active 1 tablet Once a day Norvasc [facility] 79668943426 5 MG Orally Active 1 tablet Once a day Ferrous Sulfate [facility] 44135377293 325 (65 Fe) MG Active 1 tablet Orally Once a day Furosemide [facility] 98251097571 20 MG Orally Active 1 tablet Once a day Uloric [facility] 39256169794 40 MG Orally Active 1 tablet Once a day for high uric acid level Triamcinolone [facility] 55530821587 0.1 % December Active 1 application Acetonide Externally 06, to affected Twice a day [address] [facility] 40914273228 0.05 % Active 1 application Externally to affected Twice a day area Results No Known Results Summary Purpose [employer]Works Submission
--- NOTE | 2019-12-22 09:12 | EDPHYS ---
Physician Documentation [facility] Name: Sergio Otero Age: 59 yrs Sex: Female : 1960 Arrival Date: 12/22/2019 Time: 08:17 Bed 2 Private MD: Marissa Rodriguez ED Physician Eugenio Sanchez HPI: 12/21 08:55 This 59 yrs old Black Female presents to ER via Ambulatory with complaints of Abdominal snw Problem. 08:55 The patient presents with abdominal pain skin over left lower abdomen. Onset: The snw symptoms/episode began/occurred gradually, 4 day(s) ago, and became persistent. The symptoms do not radiate. Associated signs and symptoms: none. The symptoms are described as vague. Modifying factors: The symptoms are alleviated by nothing, the symptoms are aggravated by movement, touching the area. Severity of pain: At its worst the pain was mild moderate. The patient has not experienced similar symptoms in the past. It is unknown whether or not the patient has recently seen a physician. Historical: - Allergies: 18:24 No Known Drug Allergies; ph - PMHx: 18:24 Gout; Hyperlipidemia; Hypertension; kidney function is low; Sickle Cell Trait; ph - Immunization history:: Adult Immunizations unknown. - Social history:: Smoking status: Patient denies any tobacco usage or history of. ROS: 08:53 Constitutional: Negative for fever, chills, and weight loss, Eyes: Negative for injury, snw pain, redness, and discharge, ENT: Negative for injury, pain, and discharge, Neck: Negative for injury, pain, and swelling, Cardiovascular: Negative for chest pain, palpitations, and edema, Respiratory: Negative for shortness of breath, cough, wheezing, and pleuritic chest pain, Back: Negative for injury and pain, : Negative for injury, bleeding, discharge, and swelling, MS/Extremity: Negative for injury and deformity, Skin: Negative for injury, rash, and discoloration, Neuro: Negative for headache, weakness, numbness, tingling, and seizure, Psych: Negative for depression, anxiety, suicide ideation, homicidal ideation, and hallucinations. 08:53 Abdomen/GI: Positive for abdominal tenderness to left groin/panus x several days. Exam: 08:53 Constitutional: This is a well developed, well nourished patient who is awake, alert, snw and in no acute distress. Head/Face: Normocephalic, atraumatic. Eyes: Pupils equal round and reactive to light, extra-ocular motions intact. Lids and lashes normal. Conjunctiva and sclera are non-icteric and not injected. Cornea within normal limits. Periorbital areas with no swelling, redness, or edema. ENT: Nares patent. No nasal discharge, no septal abnormalities noted. Tympanic membranes are normal and external auditory canals are clear. Oropharynx with no redness, swelling, or masses, exudates, or evidence of obstruction, uvula midline. Mucous membranes moist. Neck: Trachea midline, no thyromegaly or masses palpated, and no cervical lymphadenopathy. Supple, full range of motion without nuchal rigidity, or vertebral point tenderness. No Meningismus. Chest/axilla: Normal chest wall appearance and motion. Nontender with no deformity. No lesions are appreciated. Cardiovascular: Regular rate and rhythm with a normal S1 and S2. No gallops, murmurs, or rubs. Normal PMI, no JVD. No pulse deficits. Respiratory: Lungs have equal breath sounds bilaterally, clear to auscultation and percussion. No rales, rhonchi or wheezes noted. No increased work of breathing, no retractions or nasal flaring. Back: No spinal tenderness. No costovertebral tenderness. Full range of motion. Skin: Warm, dry with normal turgor. Normal color with no rashes, no lesions, and no evidence of cellulitis. MS/ Extremity: Pulses equal, no cyanosis. Neurovascular intact. Full, normal range of motion. Neuro: Awake and alert, GCS 15, oriented to person, place, time, and situation. Cranial nerves II-XII grossly intact. Motor strength 5/5 in all extremities. Sensory grossly intact. Cerebellar exam normal. Normal gait. Psych: Awake, alert, with orientation to person, place and time. Behavior, mood, and affect are within normal limits. 08:53 Abdomen/GI: Inspection: obese large panus over pelvis, pt has been rolling up tissue to absorb moisture, area with foul odor, tenderness, moisture, Bowel sounds: normal. Vital Signs: 08:35 BP 133 / 81; Pulse 64; Resp 18; Temp 97.7; Pulse Ox 99% on R/A; Weight 107.5 kg; Height ph 5 ft. 7 in. (170.18 cm); 08:35 Body Mass Index 37.12 (107.50 kg, 170.18 cm) ph MDM: 08:22 Patient medically screened. [facility] 09:12 Data reviewed: vital signs, nurses notes. Data interpreted: Pulse oximetry: on room air snw is 99 %. Interpretation: normal. Counseling: I had a detailed discussion with the patient and/or guardian regarding: the historical points, exam findings, and any diagnostic results supporting the discharge/admit diagnosis, the need for outpatient follow up, to return to the emergency department if symptoms worsen or persist or if there are any questions or concerns that arise at home. Special discussion: Based on the history and exam findings, there is no indication for further emergent testing or inpatient evaluation. I discussed with the patient/guardian the need to see the vehicle monitor technician for further evaluation of the symptoms. I discussed with the patient/guardian the need to see the primary care provider for further evaluation of the symptoms. 12/21 09:04 Order name: Glucose, Ancillary Testing; Complete Time: 09:09 EDMS 12/21 08:51 Order name: FSBS; Complete Time: 09:15 snw 12/21 08:51 Order name: Wound Care: please teach pt how to effectively clean and then dry panus snw prior to allowing skin to be covered again with abdomen; Complete Time: 09:44 Administered Medications: 09:44 Drug: Hibiclens 4 % 1 application Route: Topical; Site: abdomen; ph 09:45 Follow up: Response: No adverse reaction ph 09:45 Follow up: Response: No adverse reaction; Medication administered at discharge. ph 09:44 Drug: DiFLUcan 200 mg Route: PO; ph 09:45 Follow up: Response: No adverse reaction; Medication administered at discharge. ph Disposition: 11:03 Co-signature as Attending Physician, Eugenio Sanchez MD I agree with the assessment and [facility] plan of care. Disposition: 12/22/19 09:10 Discharged to Home. Impression: Candidiasis. - Condition is Stable. - Discharge Instructions: Skin Yeast Infection. - Prescriptions for Micro- Guard 2 % Topical powder - apply 1 application by TOPICAL route 2 times per day; 2 Container. - Medication Reconciliation Form, Thank You Letter, Antibiotic Education, Prescription Opioid Use form. - Follow up: Marissa Rodriguez MD; When: 1 - 2 days; Reason: Recheck today's complaints, Continuance of care, Re-evaluation by your physician. Follow up: Emergency Department; When: As needed; Reason: Worsening of condition. Signatures: Eugenio Sanchez MD MD cha Therrien, Shelly, WATER PURIFIER OPERATOR-C WATER PURIFIER OPERATOR-Csnw Domonique Vuong, RN RN ph Corrections: (The following items were deleted from the chart) 09:46 09:10 12/22/2019 09:10 Discharged to Home. Impression: Candidiasis. Condition is ph Stable. Discharge Instructions: Skin Yeast Infection. Prescriptions for Micro-Guard 2 % Topical powder - apply 1 application by TOPICAL route 2 times per day; 2 Container. and Forms are Medication Reconciliation Form, Thank You Letter, Antibiotic Education, Prescription Opioid Use. Follow up: Marissa Rodriguez; When: 1 - 2 days; Reason: Recheck today's complaints, Continuance of care, Re-evaluation by your physician. Follow up: Emergency Department; When: As needed; Reason: Worsening of condition. snw
--- NOTE | 2019-12-22 09:12 | ER ---
Nurse's Notes [facility] Name: Sergio Otero Age: 59 yrs Sex: Female : 1960 Arrival Date: 12/22/2019 Time: 08:17 Bed 2 Private MD: Marissa Rodriguez Diagnosis: Candidiasis Presentation: 12/21 08:35 Chief complaint: Patient states: "I noticed some d/c from under my stomach and I felt ph like I may have had a fever yesterday" Pt reports d/c from L side of lower abdomen, also reports slight burning pain in area, denies N/V. Coronavirus screen: The patient has NOT traveled to [place] in the past 14 days. The patient has NOT had contact with known and/or suspected case of Coronavirus. Ebola Screen: No symptoms or risks identified at this time. Initial Sepsis Screen: Does the patient meet any 2 criteria? No. Patient's initial sepsis screen is negative. Does the patient have a suspected source of infection? No. Patient's initial sepsis screen is negative. Risk Assessment: Do you want to hurt yourself or someone else? Patient reports no desire to harm self or others. 08:35 Method Of Arrival: Ambulatory ph 08:35 Acuity: SIMONE 4 ph Historical: - Allergies: 18:24 No Known Drug Allergies; ph - PMHx: 18:24 Gout; Hyperlipidemia; Hypertension; kidney function is low; Sickle Cell Trait; ph - Immunization history:: Adult Immunizations unknown. - Social history:: Smoking status: Patient denies any tobacco usage or history of. Screenin:00 Abuse screen: Denies threats or abuse. Denies injuries from another. Nutritional ph screening: No deficits noted. Tuberculosis screening: No symptoms or risk factors identified. Fall Risk None identified. Assessment: 09:15 General: Appears in no apparent distress. comfortable, obese, Behavior is calm, ph cooperative, appropriate for age. Pain: Complains of pain in left lower quadrant Quality of pain is described as burning. Neuro: Level of Consciousness is awake, alert, obeys commands, Oriented to person, place, time, situation. Cardiovascular: Capillary refill < 3 seconds Patient's skin is warm and dry. Respiratory: Airway is patent Respiratory effort is even, unlabored. GI: Abdomen is non-distended, obese, Bowel sounds present X 4 quads. Abd is soft and non tender X 4 quads. Patient currently denies diarrhea, nausea, vomiting. Derm: Skin is intact, Skin is pink, warm \\T\\ dry. Musculoskeletal: Circulation, motion, and sensation intact. Range of motion: intact in all extremities. Vital Signs: 08:35 BP 133 / 81; Pulse 64; Resp 18; Temp 97.7; Pulse Ox 99% on R/A; Weight 107.5 kg; Height ph 5 ft. 7 in. (170.18 cm); 08:35 Body Mass Index 37.12 (107.50 kg, 170.18 cm) ph ED Course: 08:17 Patient arrived in ED. ag5 08:18 Marissa Rodriguez MD is Private Physician. ag5 08:22 Eugenio Sanchez MD is Attending Physician. aundrea 08:27 Domonique Vuong, RN is Primary Nurse. ph 08:27 Flaqu[facility] Lopes [facility]C [facility] snw 08:38 Triage completed. ph 09:10 Marissa Rodriguez MD is Referral Physician. snw 09:15 Arm band placed on Patient placed in an exam room, on a stretcher. ph 09:15 No provider procedures requiring assistance completed. Patient did not have IV access ph during this emergency room visit. 18:22 Patient has correct armband on for positive identification. Placed in gown. Bed in low ph position. Call light in reach. Side rails up X 1. Pulse ox on. NIBP on. Warm blanket given. Administered Medications: 09:44 Drug: Hibiclens 4 % 1 application Route: Topical; Site: abdomen; ph 09:45 Follow up: Response: No adverse reaction ph 09:45 Follow up: Response: No adverse reaction; Medication administered at discharge. ph 09:44 Drug: DiFLUcan 200 mg Route: PO; ph 09:45 Follow up: Response: No adverse reaction; Medication administered at discharge. ph Outcome: 09:10 Discharge ordered by . snw 09:46 Patient left the ED. ph 09:46 Discharged to home via wheelchair. ph 09:46 Condition: good 09:46 Discharge instructions given to patient, Instructed on discharge instructions, follow up and referral plans. medication usage, Demonstrated understanding of instructions, follow-up care, medications, Prescriptions given X 1. Signatures: Eugenio Sanchez MD MD cha Therrien, Flaquita, EMBEDDED DEVELOPER-C EMBEDDED DEVELOPER-Csnw Domonique Vuong, RN RN Rafaela, Og ag5
[2019-12-22] MEDS ORDERED: FLUCONAZOLE 100 MG TAB ONE (09:24)
[2019-12-22 09:53] VITALS: BP 133/81; TEMP 97.7; O2SAT 99
== END 2019-12-22 09:46 | disposition home or self-care (01) ==
LOC: ER 08:13
DX: B37.9 Candidiasis, unspecified (principal)
CPT/HCPCS: 82947; 99283

== ENCOUNTER 2020-09-24 07:55 | Emergency (ER) | payer OTHER ==
--- OUTSIDE RECORDS SUMMARY | 2020-09-24 07:57 | XMS REPORT ---
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 Act kmi Problem Hyperlipidemia, mixed E78.2 Active Problem Varicose vein I86.8 Active Problem Chronic renal disease N18.9 Active Problem Sickle-cell trait D57.3 Active Problem Iron deficiency anemia due to D50.0 Active chronic blood loss Problem Glaucoma H40.9 Active Problem Hyperuricemia E79.0 Active Problem Polyarthralgia M25.50 Active Problem Heel pain M79.673 Active Problem Chronic kidney disease, unspecified N18.9 Active CKD stage Problem Diverticulosis large intestine w/o K57.30 Active perforation or abscess w/o bleeding Problem Left foot pain M79.672 Active Problem Pain in left leg M79.605 Active Problem Tiredness R53.83 Active Problem Essential hypertension I10 Activ e Problem Obesity E66.9 Active Problem Pain in right leg M79.604 Active Problem Benign essential HTN I10 Active Problem Diverticulosis K57.90 Active Problem Polyp of colon, unspecified part of K63.5 Active colon, unspecified type Problem Varicose veins of both lower I83.93 Active extremities, unspecified whether complicated Problem Family history of heart disease Z82.49 Active Problem Acute midline low back pain with M54.42 Active left-sided sciatica Assessment Pain in left leg M79.605 Active Problem Body mass index (BMI) of 40.0-44.9 Z68.41 Active in adult Problem Rash and nonspecific skin eruption R21 Active Problem Iron deficiency anemia, unspecified D50.9 Active iron deficiency anemia type Problem Acute gout of right foot, M10.9 Ac tive unspecified cause Problem Generalized weakness R53.1 Active Problem Morbid obesity E66.01 Active Problem Morbid (severe) obesity due to E66.01 Active excess calories Medications Medication Code Code Instructions Start End Status Dosage System Date Date Furosemide [facility] 53848208988 20 MG Orally Active 1 ta blet Once a day Temovate [facility] 12958298767 0.05 % Active 1 applicati on Externally to affected Twice a day area Uloric [facility] 19149468253 40 MG Orally Active 1 table t Once a day for high uric acid level Ferrous Sulfate [facility] 32910448066 325 (65 Fe) MG Activ e 1 tablet Orally Once a day Triamcinolone [facility] 85217269468 0.1 % December Active 1 appl ication Acetonide Externally , to affected Twice a day 2019 area Aspir-81 [facility] 63508369011 81 MG Orally Active 1 tabl et Once a day Lumigan [facility] 72396099169 0.01 % Active 1 drop into Ophthalmic Once affected eye a day in the evening Simvastatin [facility] 90226952124 20 mg Orally Active 1 t ablet in Once a day the evening Gabapentin [facility] 48689965393 100 MG Orally March Active 1 c apsule as Once a day in , needed for evening 2019 pain Lisinopril [facility] 47759708776 10 MG Orally Active 1-2 tablets Once a day Norvasc [facility] 42045949833 5 MG Orally Active 1 tablet Once a day nexium ND 80795622079 Oral Active 1 tab Results No Known Results Summary Purpose [employer] Submission
--- OUTSIDE RECORDS SUMMARY | 2020-09-24 07:57 | XMS REPORT ---
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 Act kim Problem Hyperlipidemia, mixed E78.2 Active Problem Varicose [...] pain with M54.42 Active left-sided sciatica Problem Body mass index (BMI) of 40.0-44.9 Z68.41 Active in adult Problem Rash and nonspecific skin eruption R21 Active Problem Iron deficiency anemia, unspecified D50.9 Active iron deficiency anemia type Problem Acute gout of right foot, M10.9 Ac tive unspecified cause Problem Generalized weakness R53.1 Active Problem Morbid obesity E66.01 Active Problem Morbid (severe) obesity due to E66.01 Active excess calories Medications No Known Medications Results No Known Results Summary Purpose [employer] Submission
--- OUTSIDE RECORDS SUMMARY | 2020-09-24 07:57 | XMS REPORT ---
:1960 Author Organization [facility] Address [address] [place] [address] Care Team Providers Name Role Phone Watson Unavailable [phone] PROBLEMS Type Condition ICD9-CM FIG27-TO Onset Condition SNOMED Code Notes Code Code Dates Status Problem Chronic renal N18.9 Active 920228532 disease Problem Iron deficiency D50.0 Active 199645414 anemia due to chronic blood loss Problem Sickle-cell D57.3 Active 84621762 trait Problem Heel pain M79.673 Active 8849858 Problem Glaucoma H40.9 Active 30621193 Problem Obesity E66.9 Active 401460085 Problem Benign essential I10 Active 63095598 HTN Problem Left foot pain M79.672 Active 811540014765058 Problem Colon polyp K63.5 Active 56289939 Problem Chronic kidney N18.9 Active 763886046 disease, unspecified CKD stage Problem Blindness and H54.10 Active low vision Problem Varicose vein I86.8 Active 33579994 Problem Hyperlipidemia, E78.2 Active 731024897 mixed Problem Body mass index Z68.41 Active 909704525 (BMI) of 40.0-44.9 in adult Problem Acute midline M54.42 Active 818275831 low back pain with left-sided sciatica Problem Morbid (severe) E66.01 Active 394045654 obesity due to excess calories Problem Morbid obesity E66.01 Active 016577456 Problem Generalized R53.1 Active 30148367 weakness Problem Acute gout of M10.9 Active 021839368 Located right foot, at right unspecified 1st toe. cause Problem Polyarthralgia M25.50 Active 18076225 Problem Pulmonary I27.20 Active 32402466 hypertension Problem Hyperuricemia E79.0 Active 89117631 Problem Diverticulosis K57.30 Active 761991851 large intestine w/o perforation or abscess w/o bleeding Problem Polyp of colon, K63.5 Active 08801827 unspecified part of colon, unspecified type Problem Diverticulosis K57.90 Active 631778559 Problem Pain in right M79.604 Active 80519181129213799 leg Problem Rash and R21 Active 396943927 nonspecific skin eruption Problem Gout M10.9 Active 80171000 Problem Essential I10 Active 67762957 hypertension Problem Iron deficiency D50.9 Active 58823525 anemia, unspecified iron deficiency anemia type Problem Family history Z82.49 Active 215246973 of heart disease Problem Varicose veins I83.93 Active 39790169 of both lower extremities, unspecified whether complicated Problem Tiredness R53.83 Active 183967337 Problem Pain in left leg M79.605 Active 240910485 ALLERGIES No Known Allergies ENCOUNTERS from 1960 to 2020-09-14 Encounter Location Date Provider Diagnosis [facility] [address], [place] [address] IMMUNIZATIONS No Information SOCIAL HISTORY Sex Assigned At : Social History Observation Description Sex Assigned At Unknown REASON FOR REFERRAL No Information VITAL SIGNS No information MEDICATIONS Medication SIG (Take, Route, Notes Start Date End Date Status Frequency, Duration) Lumigan 0.01 % 1 drop into affected Active eye in the evening Ophthalmic Once a day Gabapentin 100 MG 1 capsule as needed Active for pain Orally Once a day in evening for 30 days Furosemide 20 MG 1 tablet Orally Once a Active day for 90 days Temovate 0.05 % 1 application to Act kim affected area Externally Twice a day for 14 days Triamcinolone Acetonide 1 application to Active 0.1 % affected area Externally Twice a day for 30 days Simvastatin 20 mg 1 tablet in the Ac tive evening Orally Once a day for 90 days Uloric 40 MG 1 tablet Orally Once a Active day for high uric acid level for 90 days Aspir-81 81 MG 1 tablet Orally Once a Active day Lisinopril 10 MG 1-2 tablets Orally Active Once a day for 90 days Saxenda 18 MG/3ML as directed Aug, Oct, Ac tive Subcutaneous daily for 30 days nexium 20 MG 1 capsule Orally Once A ctive a day for 90 days Ferrous Sulfate 325 (65 1 tablet Orally Once a Active Fe) MG day for 90 days PROCEDURES No Information RESULTS No Results REASON FOR VISIT medication verification MEDICAL (GENERAL) HISTORY Type Description Date Medical History Hyperlipidemia, mixed Medical History Benign essential HTN Medical History Obesity Medical History Blindness and low vision Medical History Glaucoma Medical History Iron deficiency anemia due to chronic bl ood loss Medical History Sickle-cell trait Medical History Pulmonary hypertension Medical History Chronic renal disease Medical History Varicose vein Medical History Heel pain Medical History Colon polyp Surgical History Right adrenal gland removed Surgical History C sections Surgical History Bilateral foot surgeries to removed cyst Surgical History Right rotator cuff surgery Goals Section No Information Health Concerns No Information MEDICAL EQUIPMENT No Information MENTAL STATUS No Information FUNCTIONAL STATUS No Information ASSESSMENTS No Information PLAN OF TREATMENT Medication Medication Name Sig Start Date Stop Date nexium 20 MG 1 capsule Orally Once a day for 90 days Insurance Providers Payer Name Payer Payer Insured Patient Coverage Coverage End Address Phone Name Relationship to Start Date Basim e Insured [employer] [phone] Sergio Otero self prin [id number] [place] Replace [id number]
--- OUTSIDE RECORDS SUMMARY | 2020-09-24 07:57 | XMS REPORT ---
:1960 Author Organization [facility] Address [address] [facility] [address] [place] [address] Care Team Providers Name Role Phone Watson Unavailable [phone] PROBLEMS Type Condition ICD9-CM [id number] Onset Condition SNOMED Code Notes Code Code Dates Status Problem Chronic renal N18.9 Active 251762830 disease Problem Iron deficiency D50.0 Active 968062769 anemia due to chronic blood loss Problem Sickle-cell D57.3 Active 31241093 trait Problem Heel pain M79.673 Active 7962203 Problem Glaucoma H40.9 Active 51137371 Problem Obesity E66.9 Active 512613604 Problem Benign essential I10 Active 84098813 HTN Problem Left foot pain M79.672 Active 023023150451996 Problem Colon polyp K63.5 Active 21934065 Problem Chronic kidney N18.9 Active 408769730 disease, unspecified CKD stage Problem Blindness and H54.10 Active low vision Problem Varicose vein I86.8 Active 36000425 Problem Hyperlipidemia, E78.2 Active 190852396 mixed Problem Body mass index Z68.41 Active 338548075 (BMI) of 40.0-44.9 in adult Problem Acute midline M54.42 Active 154660440 low back pain with left-sided sciatica Problem Morbid (severe) E66.01 Active 776244380 obesity due to excess calories Problem Morbid obesity E66.01 Active 665749701 Problem Generalized R53.1 Active 45836578 weakness Problem Acute gout of M10.9 Active 463708785 Located right foot, at right unspecified 1st toe. cause Problem Polyarthralgia M25.50 Active 53578049 Problem Pulmonary I27.20 Active 04367728 hypertension Problem Hyperuricemia E79.0 Active 00076230 Problem Diverticulosis K57.30 Active 892422218 large intestine w/o perforation or abscess w/o bleeding Problem Polyp of colon, K63.5 Active 02953093 unspecified part of colon, unspecified type Problem Diverticulosis K57.90 Active 960623212 Problem Pain in right M79.604 Active 24192457948591571 leg Problem Rash and R21 Active 877766606 nonspecific skin eruption Problem Gout M10.9 Active 09768247 Problem Essential I10 Active 37135753 hypertension Problem Iron deficiency D50.9 Active 29766749 anemia, unspecified iron deficiency anemia type Problem Family history Z82.49 Active 584363204 of heart disease Problem Varicose veins I83.93 Active 86737392 of both lower extremities, unspecified whether complicated Problem Tiredness R53.83 Active 819412285 Problem Pain in left leg M79.605 Active 507137344 ALLERGIES No Known Allergies ENCOUNTERS from 1960 to 2020-09-14 Encounter Location Date Provider Diagnosis [facility] Family [address] [facility] [address] [place], [place] [address] IMMUNIZATIONS No Information SOCIAL HISTORY Sex Assigned [...] Information RESULTS No Results REASON FOR VISIT No Information MEDICAL (GENERAL) HISTORY Type Description Date Medical [...] Relationship to Start Date Basim e Insured [employer] [phone] Sergio Otero self prin [id number] [phone] [place] Replace [phone]
--- OUTSIDE RECORDS SUMMARY | 2020-09-24 07:57 | XMS REPORT | Continuity of Care Document ---
:1960 Author Organization [facility] t Address [address] [place] [address] Care Team Providers Name Role Phone Jose SANCHEZ Attending Clinician Silver SANCHEZ Attending Clinician Problems This patient has no known problems. Allergies, Adverse Reactions, Alerts This patient has no known allergies or adverse reactions. Medications Ordered Filled Start Stop Current Ordering Indication Dosage Frequency Signature Comments Components Source Medication Medication Date Date Medication? Clinician (SIG) Name Name Gabapentin Gabapentin Yes Marissa [address] [facility] Uloric Uloric 2019- No Marissa [address] [facility] 3[facility] 12-31 [facility] Triamcinolo Triamcinolo Yes Marissa [address] [facility] ne ne 3-06 [place] applicatio [facility] - Acetonide Acetonide 00:00: n to Mem oria 00 affected l area Outpati ent Clinics nexium nexium Yes Marissa [address] [facility] Furosemide Furosemide Yes Marissa [address] [facility] Norvasc Norvasc Yes Marissa [address] [facility] Out[facility] Clinics Lumigan Lumigan Yes Marissa [address] [facility] into [facility] evening Outpati ent Clinics Yes Marissa [address] [facility] Temovate Temovate Yes Marissa [address] [facility] applicatio [facility] - n to Memoria affected l area Outpati ent Clinics Ferrous Ferrous Yes Marissa [address] [facility] Sulfate Sulfate Millender [facility] - [facility] Outpati ent Clinics Lisinopril Lisinopril Yes Marissa 1-[address] [facility] tablets kes - [facility] Outpati ent Clinics Simvastatin Simvastatin Yes Marissa [address] [facility] in the [facility] - evening [facility] l Outpati ent Clinics Procedures This patient has no known procedures. Encounters Start End Encounter Admission Attending Care Care Encounter Source Date/Time Date/Time Type Type Clinicians Facility Department ID 2020-09-14 2020-09-14 Outpatient [facility] [id number] [facility] 2020-09-14 2020-09-14 Outpatient [facility] [id number] [facility] 2020-09-14 2020-09-14 Outpatient [facility] [id number] [facility] 2020-09-13 2020-09-13 Outpatient [facility] [id number] [facility] 2020-06-24 2020-06-24 Outpatient [facility] [id number] [facility] 09:50:00 09:50:00 [facility] l Group Outpati ent Clinics 2020-06-10 2020-06-10 Office SEGUNDO Garcia [id number] 14:57:11 15:34:42 Visit Maikin AMBULATOR [id number] Y [id number] 2020-06-09 2020-06-09 [facility] [id number] [facility] 16[facility]32[facility]00 16:32:00 [facility] Medicine Outpati ent Clinics 2020-05-28 2020-05-28 [facility] [id number] [address] 11:43:00 11:43:00 [facility] Medicine Outpati ent Clinics 2020-04-21 2020-04-21 Office SEGUNDO Sheppard [id number] 13:26:16 15:01:50 Visit Lars AMBULATOR [id number] Y [id number] 2020-04-13 2020-04-13 [facility] [id number] [address] 09:20[facility]00 09:20:00 [facility] Medicine Outpati ent Clinics 2020-03-10 2020-03-10 [facility] [id number] [address] 16:01:00 16:01:00 [facility] Medicine Outpati [facility] Clinics 2020-01-25 2020-01-25 [facility] [id number] 13:49:00 13:49:00 [facility] Medicine Out[facility] Clinics 2020-01-02 2020-01-02 [facility] [id number] 09:45:00 09:45:00 [facility] Medicine Outpati [facility] Clinics 2019-12-02 2019-12-02 [facility] [id number] 09[facility]15[facility]00 09:15:00 [facility] Medicine Outpati ent Clinics 2019-11-17 2019-11-17 [facility] [id number] 14[facility]50:00 14:50:00 [facility] Medicine Outpati ent Clinics 2019-09-26 2019-09-26 [facility] [id number] 10:00:00 10:00:00 t [facility] Medicine Medicine Outpati ent Clinics 2019-07-22 2019-07-22 [facility] [id number] 11:05:00 11:05:00 t [facility] Medicine Outpati ent Clinics 2019-06-30 2019-06-30 [facility] [id number] 10[facility]20:00 10:20:00 t [facility] Medicine Medicine Outpati ent Clinics 2019-04-17 2019-04-17 [facility] [id number] 20[facility]26:00 20:26:00 t [facility] Medicine Outpati ent Clinics 2019-04-16 2019-04-16 [facility] [id number] 15:58:00 15:58:00 t [facility] Medicine Outpati ent Clinics 2019-03-03 2019-03-03 [facility] [id number] 13:58:00 13:58:00 t [facility] Medicine Outpati ent Clinics 2019-01-17 2019-01-17 [facility] [id number] 15[facility]47:00 15:47:00 t [facility] Medicine Outpati ent Clinics 2019-01-17 2019-01-17 [facility] [id number] 11[facility]15:00 11:15:00 t [facility] Medicine Medicine Outpati ent Clinics 2019-01-10 2019-01-10 [facility] [id number] 01:41:00 01:41:00 t [facility] Medicine Outpati ent Clinics 2019-01-08 2019-01-08 [facility] [id number] 10[facility]30:00 10:30:00 t [facility] Medicine Outpati ent Clinics 2018-12-26 2018-12-26 [facility] [id number] 14:36:00 14:36:00 t [facility] Road Luke s - Road [facility] Medicine l Medicine Outpati ent Clinics 2018-12-25 2018-12-25 [facility] [id number] 11:15:00 11:15:00 t [facility] s - Road [facility] l Medicine Outpati ent Clinics 2018-11-12 2018-11-12 [facility] [id number] 09:15:00 09:15:00 t [place] [email or web address] Luke s - Drive [facility] Medicine l Medicine Outpati ent Clinics 2018-10-09 2018-10-09 [facility] [id number] 08:00:00 08:00:00 [place] [email or web address] s - Drive [facility] Medicine l Medicine Outpati ent Clinics 2018-07-30 2018-07-30 [facility] [id number] 15:53:00 15:53:00 [place] [email or web address] [facility] - Drive [facility] Medicine l Medicine Outpati ent Clinics 2018-07-29 2018-07-29 [facility] [id number] 09:10:00 09:10:00 [place] [employer] [facility] - [facility] Medicine l Medicine Outpati ent Clinics 2018-05-28 2018-05-28 [facility] [id number] 11:00:00 11:00:00 [place] [email or web address] - [facility] Medicine l Medicine Outpati ent Clinics 2018-04-10 2018-04-10 [facility] [id number] 08:24:00 08:24:00 t [place] [employer] - Drive [facility] Medicine l Medicine Outpati ent Clinics 2018-04-02 2018-04-02 [facility] [id number] 09:00:00 09:00:00 [place] [employer] [facility] - Drive [facility] Medicine l Medicine Outpati ent Clinics 2018-04-01 2018-04-01 [facility] [id number] 14:33:00 14:33:00 [place] [employer] [facility] 2018-03-21 2018-03-21 Outpatient Danielle Metzger [id number] 08:55:00 08:55:00 t [facility] ent [facility] 2018-03-19 2018-03-19 Outpatient Danielle Metzger [id number] 09:30:00 09:30:00 [facility] Results This patient has no known results.
--- OUTSIDE RECORDS SUMMARY | 2020-09-24 07:57 | XMS REPORT ---
:1960 Author Organization [facility] Address [address] [facility] [address] [place] [address] Care Team Providers Name Role Phone Watson Unavailable [phone] PROBLEMS Type Condition ICD9-CM [id number] Onset Condition SNOMED Code Notes Code Code Dates Status Problem Chronic renal N18.9 Active 483472865 disease Problem Iron deficiency D50.0 Active 284882429 anemia due to chronic blood loss Problem Sickle-cell D57.3 Active 86940731 trait Problem Heel pain M79.673 Active 4659482 Problem Glaucoma H40.9 Active 35032066 Problem Obesity E66.9 Active 224993274 Problem Benign essential I10 Active 83541619 HTN Problem Left foot pain M79.672 Active 618960211238949 Problem Colon polyp K63.5 Active 94734350 Problem Chronic kidney N18.9 Active 253433790 disease, unspecified CKD stage Problem 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 cause Problem Polyarthralgia M25.50 Active 72609773 Problem Pulmonary I27.20 Active 64344557 hypertension Problem Hyperuricemia E79.0 Active 35833541 Problem Diverticulosis K57.30 Active 385970414 large intestine w/o perforation or abscess w/o bleeding Problem Polyp of colon, K63.5 Active 93114023 unspecified part of colon, unspecified type Problem Diverticulosis K57.90 Active 766758805 Problem Pain in right M79.604 Active 32073779344061961 leg Problem Rash and R21 Active 755655133 nonspecific skin eruption Problem Gout M10.9 Active 67117647 Problem Essential I10 Active 69691573 hypertension Problem Iron deficiency D50.9 Active 66940355 anemia, unspecified iron deficiency anemia type Problem Family history Z82.49 Active 825347155 of heart disease Problem Varicose veins I83.93 Active 53959334 of both lower extremities, unspecified whether complicated Problem Tiredness R53.83 Active 006301010 Problem Pain in left leg M79.605 Active 262390168 ALLERGIES No Known Allergies ENCOUNTERS from 1960 to 2020-09-14 Encounter Location Date Provider Diagnosis [facility] [address] Aug, [place] [address] IMMUNIZATIONS No Information SOCIAL HISTORY Sex Assigned [...] Information RESULTS No Results REASON FOR VISIT ERROR MEDICAL (GENERAL) HISTORY Type Description Date Medical [...] Relationship to Start Date Basim e Insured [employer] [phone] Sergio Otero self [facility] [id number] [facility] [place] Replace [phone]
--- OUTSIDE RECORDS SUMMARY | 2020-09-24 07:58 | XMS REPORT ---
:1960 Author Organization [facility] Address [address] [facility] [address] [place] [address] Care Team Providers Name Role Phone Watson Unavailable [phone] PROBLEMS Type Condition ICD9-CM [id number] Onset Condition SNOMED Code Notes Code Code Dates Status Problem Chronic renal N18.9 Active 467940138 disease Problem Iron deficiency D50.0 Active 029151517 anemia due to chronic blood loss Problem Sickle-cell D57.3 Active 54752482 trait Problem Heel pain M79.673 Active 8547114 Problem Glaucoma H40.9 Active 65214905 Problem Obesity E66.9 Active 759908262 Problem Benign essential I10 Active 91998100 HTN Problem Left foot pain M79.672 Active 500654299255798 Problem Colon polyp K63.5 Active 30732656 Problem Chronic kidney N18.9 Active 609969211 disease, unspecified CKD stage Problem 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 cause Problem Polyarthralgia M25.50 Active 18234236 Problem Pulmonary I27.20 Active 22681762 hypertension Problem Hyperuricemia E79.0 Active 48650205 Problem Diverticulosis K57.30 Active 206439443 large intestine w/o perforation or abscess w/o bleeding Problem Polyp of colon, K63.5 Active 27364226 unspecified part of colon, unspecified type Problem Diverticulosis K57.90 Active 624341465 Problem Pain in right M79.604 Active 02936572164406838 leg Problem Rash and R21 Active 006021783 nonspecific skin eruption Problem Gout M10.9 Active 61093614 Problem Essential I10 Active 81538288 hypertension Problem Iron deficiency D50.9 Active 15617617 anemia, unspecified iron deficiency anemia type Problem Family history Z82.49 Active 277503168 of heart disease Problem Varicose veins I83.93 Active 53351920 of both lower extremities, unspecified whether complicated Problem Tiredness R53.83 Active 033356684 Problem Pain in left leg M79.605 Active 804608790 ALLERGIES No Known Allergies ENCOUNTERS from 1960 to 2020-09-19 Encounter Location Date Provider Diagnosis [facility] [address] Aug, Azar Watson Benign essential HTN Family Medicine [place], [place] [address] ; [place] [phone] nonspecific ski n eruption R21 ; Iron deficiency anem ia, unspecified iro n deficiency anem ia type D50.9 ; Hyperur icemia E79.0 ; Pain in left leg M79.605 ; M orbid (severe) obesit y due to excess calories E66.01 ; Gout M10.9 an d Snoring R06.83 IMMUNIZATIONS No Information SOCIAL HISTORY Sex Assigned At : Social History Observation Description Sex Assigned At Unknown REASON FOR REFERRAL No Information VITAL SIGNS Height 64 in Aug, Weight 249.8 lbs Aug, Temperature 97.2 degrees Fahrenheit Aug, BMI 42.87 kg/m2 Aug, Oximetry 97 % Aug, Respiratory Rate 18 /min Aug, Blood pressure systolic 166 mm Hg Aug, Blood pressure diastolic 92 mm Hg Aug, MEDICATIONS Medication SIG (Take, Route, Notes Start [...] Information RESULTS No Results REASON FOR VISIT 3 month f/u MEDICAL (GENERAL) HISTORY Type Description Date Medical [...] No Information FUNCTIONAL STATUS No Information ASSESSMENTS Encounter Date Diagnosis Assessment Notes Treatment Notes Treatm ent Clinical Notes Aug, Benign essential HTN (ICD-10 - I10) Aug, Rash and nonspecific skin eruption (ICD-10 - R21) Aug, Iron deficiency anemia, unspecified iron deficiency anemia type (ICD-10 - D50.9) Aug, Hyperuricemia (ICD-10 - E79.0) Aug, Pain in left leg (ICD-10 - M79.605) Aug, Morbid (severe) obesity due to excess calories (ICD-10 - E66.01) Aug, Gout (ICD-10 - M10.9) Aug, Snoring (ICD-10 - R06.83) PLAN OF TREATMENT Medication Medication Name Sig Start Date Stop Date nexium 20 MG 1 capsule Orally Once a day for 90 days Insurance Providers Payer Name Payer Payer Insured Patient Coverage Coverage End Address Phone Name Relationship to Start Date Basim e Insured [employer] [phone] Sergio Otero self [id number] [place] Replace [phone]
[2020-09-24] MEDS ORDERED: NA CHLORIDE 0.9% 500 ML ONE (08:56)
[2020-09-24] MEDS ORDERED: ASPIRIN EC 81 MG TAB PO ONE (08:56)
[2020-09-24 09:12] LABS: Absolute Lymphocytes (CBC) 2.2 K/uL (0.7-4.9); Basophils % 1.1 % (0-1.3); Hematocrit 34.4 % (36.0-45.0); Lymphocytes % 25.8 % (15.3-44.8); MPV 12.5 fL (7.6-11.3)
[2020-09-24 09:13] LABS: Protime INR 1.03
[2020-09-24 09:30] LABS: ALT/SGPT 34 U/L (12-78); AST/SGOT 17 U/L (15-37); Albumin 3.8 g/dL (3.4-5.0); Alkaline Phosphatase 65 U/L (45-117); BUN Blood Urea Nitrogen 21 mg/dL (7-18); Bicarbonate 27 mmol/L (21-32); Bilirubin Direct < 0.1 mg/dL (0-0.2); Bilirubin Total 0.7 mg/dL (0.2-1.0); Glucose Level 88 mg/dL (74-106); Lipase 122 U/L (73-393); Magnesium 2.1 mg/dL (1.8-2.4); NT PRO-BNP 32 pg/mL (<125); Potassium 4.1 mmol/L (3.5-5.1); Sodium Level 142 mmol/L (136-145); Troponin (Emerg Dept Use Only) < 0.02 ng/mL (0.0-0.045)
[2020-09-24 09:42] LABS: Blood Morphology Comment NOT SEEN (NOT SEEN); Platelet Estimate ADEQ; Platelets, Giant FEW; White Blood Cell Scan OK (OK)
--- NOTE | 2020-09-24 09:50 | ER ---
Nurse's Notes [facility] Name: Sergio Otero Age: 59 yrs Sex: Female : 1960 Arrival Date: 09/24/2020 Time: 07:56 Bed 5 Private MD: Diagnosis: Pain in left leg;Essential (primary) hypertension;Unspecified kidney failure-hx of renal insufficency;Urinary tract infection, site not specified Presentation: 09/24 08:19 Chief complaint: Patient states: left leg pain and swelling X 4 days. Coronavirus iw screen: At this time, the client does not indicate any symptoms associated with coronavirus-19. Ebola Screen: Patient negative for fever greater than or equal to 101.5 degrees Fahrenheit, and additional compatible Ebola Virus Disease symptoms Patient denies exposure to infectious person. Patient denies travel to an Ebola-affected area in the 21 days before illness onset. No symptoms or risks identified at this time. Initial Sepsis Screen: Does the patient meet any 2 criteria? No. Patient's initial sepsis screen is negative. Does the patient have a suspected source of infection? No. Patient's initial sepsis screen is negative. Risk Assessment: Do you want to hurt yourself or someone else? Patient reports no desire to harm self or others. Onset of symptoms was September 21, 2020. 08:19 Method Of Arrival: Ambulatory iw 08:19 Acuity: SIMONE 3 iw Historical: - Allergies: 08:21 No Known Allergies; iw - Home Meds: 08:21 amlodipine oral once daily [Active]; esomeprazole magnesium 40 mg Oral cpDR 1 cap once iw daily [Active]; Iron CR Oral daily [Active]; Lasix 20 mg Oral tab 1 tab once daily [Active]; losartan 25 mg Oral tab 1 tab once daily [Active]; pravastatin Oral [Active]; - PMHx: 08:21 Gout; Hyperlipidemia; Hypertension; kidney function is low; Sickle Cell Trait; iw - Immunization history:: Adult Immunizations up to date. - Social history:: Smoking status: Patient denies any tobacco usage or history of. - Family history:: not pertinent. Screenin:35 Abuse screen: Denies threats or abuse. Denies injuries from another. Nutritional ss screening: No deficits noted. Tuberculosis screening: Never had TB. Fall Risk None identified. No fall in past 12 months (0 pts). Assessment: 08:30 General: Appears in no apparent distress. comfortable, Behavior is calm, cooperative, ss Denies fever, feeling ill, fatigue, chills. Pain: Complains of pain in medial aspect of left calf Pain currently is 8 out of 10 on a pain scale. Quality of pain is described as aching, Is continuous. Neuro: Level of Consciousness is awake, alert, obeys commands, Oriented to person, place, time, situation. Cardiovascular: Capillary refill < 3 seconds is brisk in bilateral fingers. Respiratory: Airway is patent Respiratory effort is even, unlabored, Respiratory pattern is regular, symmetrical. Respiratory: Denies cough, shortness of breath. GI: Patient currently denies diarrhea, nausea, vomiting. : Denies burning with urination, inability to void, urinary frequency. EENT: Nares are clear. Derm: Skin is intact, is healthy with good turgor, Skin is pink, warm \T\ dry. normal. 09:30 Reassessment: Patient appears in no apparent distress at this time. No changes from ss previously documented assessment. Patient and/or family updated on plan of care and expected duration. Pain level reassessed. Patient is alert, oriented x 3, equal unlabored respirations, skin warm/dry/pink. 10:30 Reassessment: Patient appears in no apparent distress at this time. Patient and/or ss family updated on plan of care and expected duration. Pain level reassessed. Patient is alert, oriented x 3, equal unlabored respirations, skin warm/dry/pink. Vital Signs: 08:19 BP 156 / 88; Pulse 79; Resp 16; Temp 97.9; Pulse Ox 98% on R/A; Weight 113.4 kg; Height iw 5 ft. 7 in. (170.18 cm); Pain 8/10; 08:19 Body Mass Index 39.16 (113.40 kg, 170.18 cm) iw ED Course: 07:56 Patient arrived in ED. ds1 08:09 Eugenio Sanchez MD is Attending Physician. aundrea 08:20 Triage completed. iw 08:22 Arm band placed on. iw 08:30 monitoring coordinator on. Pulse ox on. NIBP on. Warm blanket given. ss 08:35 Stacey Harden RN is Primary Nurse. 08:56 Inserted saline lock: 22 gauge in right forearm, using aseptic technique. Blood ss collected. 09:09 US Extremity Venous W Compression Manjeet In Process Unspecified. EDMS 09:20 XRAY Chest (1 view) In Process Unspecified. EDMS 10:20 IV discontinued, intact, bleeding controlled, No redness/swelling at site. Pressure ss dressing applied. 10:35 Patient has correct armband on for positive identification. Bed in low position. Call ss light in reach. Side rails up X 1. 10:35 No provider procedures requiring assistance completed. ss Administered Medications: 08:50 Drug: Aspirin 81 mg Route: PO; ss 10:23 Follow up: Response: No adverse reaction ss 08:57 Drug: NS 0.9% 1000 ml Route: IV; Rate: 125 ml/hr; Site: right forearm; ss 10:20 Follow up: IV Status: IV converted to saline lock ss 10:23 Drug: Cipro 500 mg Route: PO; ss 10:23 Follow up: Response: Medication administered at discharge. ss 10:23 Not Given (IV already dc'd. Dr. sanchez notified. OK to cancel and just give Cipro): ss Rocephin 1 grams IV at per protocol once; Given slow IV push per pharmacy instructions Outcome: 09:49 Discharge ordered by MD. guillaume 10:35 Discharged to home ambulatory. ss 10:35 Condition: good 10:35 Discharge instructions given to patient, Instructed on discharge instructions, follow up and referral plans. medication usage, Demonstrated understanding of instructions, follow-up care, medications, Prescriptions given X 3. 10:37 Patient left the ED. ss Signatures: Dispatcher [employer] Eugenio Coughlin MD MD cha Sanford, Demi ds1 Terri Moran, RN RN Stacey Gonzalez RN RN ss
--- NOTE | 2020-09-24 09:50 | EDPHYS ---
Physician Documentation [facility] Name: Sergio Otero Age: 59 yrs Sex: Female : 1960 Arrival Date: 09/24/2020 Time: 07:56 Bed 5 Private MD: ED Physician Eugenio Sanchez HPI: 09/24 08:25 This 59 yrs old Black Female presents to ER via Ambulatory with complaints of Leg Pain, aundrea Leg Swelling. 08:25 The patient presents with decreased range of motion, pain. The complaints affect the aundrea lateral aspect of left calf, left calf, medial aspect of left calf and left anthony. Context: The problem was sustained at an unknown site. Onset: The symptoms/episode began/occurred 3 day(s) ago. Modifying factors: The symptoms are alleviated by nothing. the symptoms are aggravated by movement. Associated signs and symptoms: The patient has no apparent associated signs or symptoms. Severity of symptoms: At their worst the symptoms were mild, moderate, in the emergency department the symptoms are unchanged. The patient has not experienced similar symptoms in the past. Historical: - Allergies: 08:21 No Known Allergies; iw - Home Meds: 08:21 amlodipine oral once daily [Active]; esomeprazole magnesium 40 mg Oral cpDR 1 cap once iw daily [Active]; Iron CR Oral daily [Active]; Lasix 20 mg Oral tab 1 tab once daily [Active]; losartan 25 mg Oral tab 1 tab once daily [Active]; pravastatin Oral [Active]; - PMHx: 08:21 Gout; Hyperlipidemia; Hypertension; kidney function is low; Sickle Cell Trait; iw - Immunization history:: Adult Immunizations up to date. - Social history:: Smoking status: Patient denies any tobacco usage or history of. - Family history:: not pertinent. ROS: 08:25 Constitutional: Negative for fever, chills, and weight loss, Eyes: Negative for injury, aundrea pain, redness, and discharge, ENT: Negative for injury, pain, and discharge, Neck: Negative for injury, pain, and swelling, Cardiovascular: Negative for chest pain, palpitations, and edema, Respiratory: Negative for shortness of breath, cough, wheezing, and pleuritic chest pain, Abdomen/GI: Negative for abdominal pain, nausea, vomiting, diarrhea, and constipation, Back: Negative for injury and pain, : Negative for injury, bleeding, discharge, and swelling, Skin: Negative for injury, rash, and discoloration, Neuro: Negative for headache, weakness, numbness, tingling, and seizure, Psych: Negative for depression, anxiety, suicide ideation, homicidal ideation, and hallucinations, Allergy/Immunology: Negative for hives, rash, and allergies, Endocrine: Negative for neck swelling, polydipsia, polyuria, polyphagia, and marked weight changes, Hematologic/Lymphatic: Negative for swollen nodes, abnormal bleeding, and unusual bruising. 08:25 MS/extremity: Positive for decreased range of motion, pain, swelling, tenderness, of the lateral aspect of left calf, left calf, medial aspect of left calf and left anthony. Exam: 08:25 Constitutional: This is a well developed, well nourished patient who is awake, alert, aundrea and in no acute distress. Head/Face: Normocephalic, atraumatic. Eyes: Pupils equal round and reactive to light, extra-ocular motions intact. Lids and lashes normal. Conjunctiva and sclera are non-icteric and not injected. Cornea within normal limits. Periorbital areas with no swelling, redness, or edema. ENT: Nares patent. No nasal discharge, no septal abnormalities noted. Tympanic membranes are normal and external auditory canals are clear. Oropharynx with no redness, swelling, or masses, exudates, or evidence of obstruction, uvula midline. Mucous membranes moist. Neck: Trachea midline, no thyromegaly or masses palpated, and no cervical lymphadenopathy. Supple, full range of motion without nuchal rigidity, or vertebral point tenderness. No Meningismus. Chest/axilla: Normal chest wall appearance and motion. Nontender with no deformity. No lesions are appreciated. Cardiovascular: Regular rate and rhythm with a normal S1 and S2. No gallops, murmurs, or rubs. Normal PMI, no JVD. No pulse deficits. Respiratory: Lungs have equal breath sounds bilaterally, clear to auscultation and percussion. No rales, rhonchi or wheezes noted. No increased work of breathing, no retractions or nasal flaring. Abdomen/GI: Soft, non-tender, with normal bowel sounds. No distension or tympany. No guarding or rebound. No evidence of tenderness throughout. Back: No spinal tenderness. No costovertebral tenderness. Full range of motion. Female : Normal external genitalia. Skin: Warm, dry with normal turgor. Normal color with no rashes, no lesions, and no evidence of cellulitis. Neuro: Awake and alert, GCS 15, oriented to person, place, time, and situation. Cranial nerves II-XII grossly intact. Motor strength 5/5 in all extremities. Sensory grossly intact. Cerebellar exam normal. Normal gait. Psych: Awake, alert, with orientation to person, place and time. Behavior, mood, and affect are within normal limits. 08:25 Musculoskeletal/extremity: Extremities: grossly normal except: noted in the lateral aspect of left calf, left calf, medial aspect of left calf and left anthony: decreased ROM, pain, ROM: limited active range of motion, limited passive range of motion, Circulation is intact in all extremities. Sensation intact. Compartment Syndrome exam of affected extremity: is normal. no numbness, no tingling, no sensation deficit, no palor, no weak pulses, severe pain, DVT Exam: negative Homans' sign noted on exam, no appreciated bluish discoloration, no erythema, no increased warmth, pain, swelling, tenderness. 09:24 ECG was reviewed by the Attending Physician. [facility] Vital Signs: 08:19 BP 156 / 88; Pulse 79; Resp 16; Temp 97.9; Pulse Ox 98% on R/A; Weight 113.4 kg; Height iw 5 ft. 7 in. (170.18 cm); Pain 8/10; 08:19 Body Mass Index 39.16 (113.40 kg, 170.18 cm) iw MDM: 08:09 Patient medically screened. [facility] 08:31 Differential diagnosis: contusion, tendonitis. Data reviewed: vital signs, nurses [facility] notes, lab test result(s), EKG, radiologic studies, doppler, plain films. Data interpreted: radiation monitor: rate is 79 beats/min, rhythm is regular, Pulse oximetry: on room air is 98 %. Test interpretation: by ED physician or midlevel provider: ECG, plain radiologic studies. Counseling: I had a detailed discussion with the patient and/or guardian regarding: the historical points, exam findings, and any diagnostic results supporting the discharge/admit diagnosis, lab results, radiology results. 09/24 08:25 Order name: Basic Metabolic Panel; Complete Time: 09:44 [facility] 09/24 08:25 Order name: CBC with Diff; Complete Time: 09:44 [facility] 09/24 08:25 Order name: LFT's; Complete Time: 09:44 [facility] 09/24 08:25 Order name: Magnesium; Complete Time: 09:44 [facility] 09/24 08:25 Order name: NT PRO-BNP; Complete Time: 09:44 [facility] 09/24 08:25 Order name: PT-INR; Complete Time: 09:44 [facility] 09/24 08:25 Order name: Troponin (emerg Dept Use Only); Complete Time: 09:44 [facility] 09/24 08:25 Order name: XRAY Chest (1 view); Complete Time: 10:19 [facility] 09/24 08:25 Order name: US Extremity Venous W Compression Manjeet; Complete Time: 10:19 [facility] 09/24 08:25 Order name: Lipase; Complete Time: 09:44 [facility] 09/24 09:32 Order name: Urine Dipstick--Ancillary (enter results) eb 09/24 09:42 Order name: CBC Smear Scan; Complete Time: 09:44 EDMS 09/24 10:20 Order name: Urine Culture 09/24 10:20 Order name: Urine Microscopic Only eb 09/24 08:25 Order name: EKG; Complete Time: 08:26 [facility] 09/24 08:25 Order name: Cardiac monitoring; Complete Time: 09:30 [facility] 09/24 08:25 Order name: EKG - Nurse/Tech; Complete Time: 09:30 [facility] 09/24 08:25 Order name: IV Saline Lock; Complete Time: 08:58 [facility] 09/24 08:25 Order name: Labs collected and sent; Complete Time: 08:58 [facility] 09/24 08:25 Order name: O2 Per Protocol; Complete Time: 08:58 [facility] 09/24 08:25 Order name: O2 Sat Monitoring; Complete Time: 08:58 [facility] 09/24 08:25 Order name: Urine Dipstick-Ancillary (obtain specimen); Complete Time: 09:29 [facility] EC:24 Rate is 69 beats/min. Rhythm is regular. QRS [place] is Normal. MS interval is normal. QRS aundrea interval is normal. QT interval is normal. No Q waves. T waves are Normal. No ST changes noted. Clinical impression: NSR w/ Non-specific ST/T Changes and No evidence of ischemia. Interpreted by me. Reviewed by me. Administered Medications: 08:50 Drug: Aspirin 81 mg Route: PO; ss 10:23 Follow up: Response: No adverse reaction ss 08:57 Drug: NS 0.9% 1000 ml Route: IV; Rate: 125 ml/hr; Site: right forearm; ss 10:20 Follow up: IV Status: IV converted to saline lock ss 10:23 Drug: Cipro 500 mg Route: PO; ss 10:23 Follow up: Response: Medication administered at discharge. ss 10:23 Not Given (IV already dc'd. Dr. sanchez notified. OK to cancel and just give Cipro): ss Rocephin 1 grams IV at per protocol once; Given slow IV push per pharmacy instructions Disposition: 09/24/20 09:49 Discharged to Home. Impression: Pain in left leg, Essential (primary) hypertension, Unspecified kidney failure - hx of renal insufficency, Urinary tract infection, site not specified. - Condition is Stable. - Discharge Instructions: Hypertension, Musculoskeletal Pain, Urinary Tract Infection, Adult, Urinary Tract Infection, Adult, [id number], Hypertension, [id number], How to Take Your Blood Pressure, [id number], Aspirin and Your Heart, Chronic Kidney Disease, Adult, [id number], Managing Your Hypertension. - Prescriptions for Tylenol- Codeine #3 300-30 mg Oral Tablet - take 1 tablet by ORAL route every 4 days As needed; 24 tablet. Cipro 250 mg Oral Tablet - take 1 tablet by ORAL route every 12 hours; 14 tablet. Bactrim DS 800- 160 mg Oral Tablet - take 1 tablet by ORAL route every 12 hours for 3 days; 6 tablet. - Medication Reconciliation Form, Thank You Letter, Antibiotic Education, Prescription Opioid Use form. - Follow up: Private Physician; When: 2 - 3 days; Reason: Recheck today's complaints, Continuance of care, Re-evaluation by your physician. - Problem is new. - Symptoms have improved. Signatures: Dispatcher [employer] EDEugenio Morales MD MD cha Williams, Irene, Stacey Escobedo RN, RN RN ss Corrections: (The following items were deleted from the chart) 10:21 09:49 09/24/2020 09:49 Discharged to Home. Impression: Pain in left leg; Essential aundrea (primary) hypertension; Unspecified kidney failure - hx of renal insufficency. Condition is Stable. Forms are Medication Reconciliation Form, Thank You Letter, Antibiotic Education, Prescription Opioid Use. Follow up: Private Physician; When: 2 - 3 days; Reason: Recheck today's complaints, Continuance of care, Re-evaluation by your physician. Problem is new. Symptoms have improved. aundrea 10:37 10:21 09/24/2020 09:49 Discharged to Home. Impression: Pain in left leg; Essential ss (primary) hypertension; Unspecified kidney failure - hx of renal insufficency; Urinary tract infection, site not specified. Condition is Stable. Discharge Instructions: Hypertension, Musculoskeletal Pain, Hypertension, [id number], How to Take Your Blood Pressure, [id number], Aspirin and Your Heart, Chronic Kidney Disease, Adult, [id number], Managing Your Hypertension. Prescriptions for Tylenol-Codeine #3 300-30 mg Oral Tablet - take 1 tablet by ORAL route every 4 days As needed; 24 tablet. and Forms are Medication Reconciliation Form, Thank You Letter, Antibiotic Education, Prescription Opioid Use. Follow up: Private Physician; When: 2 - 3 days; Reason: Recheck today's complaints, Continuance of care, Re-evaluation by your physician. Problem is new. Symptoms have improved. aundrea
--- NOTE | 2020-09-24 09:56 | RAD REPORT ---
EXAM DESCRIPTION: US - Extrem Venous W Compress Manjeet - 09/24/2020 9:09 am CLINICAL HISTORY: Pain;Swelling COMPARISON: None. TECHNIQUE: Real-time sonographic evaluation of the bilateral lower extremity common femoral, superfi cial femoral, popliteal and posterior tibial veins was performed. FINDINGS: Normal compressibility, flow augmentation, phasic flow and spontaneous flow are identified in the left and right lower extremity common femoral, superficial femoral, popliteal and posterior t ibial veins. No intraluminal filling defects seen. IMPRESSION: No DVT in either lower extremity.
--- NOTE | 2020-09-24 10:00 | RAD REPORT ---
EXAM DESCRIPTION: RAD - Chest Single View - 09/24/2020 9:19 am CLINICAL HISTORY: Cough;Chest pain COMPARISON: August 2018 TECHNIQUE: AP portable chest image was obtained 09/24/2020 9:19 am . FINDINGS: Lungs are clear. No significant failure or volume overload. Prominent soft tissues accentu ate chest findings. Heart and vasculature are normal. No measurable pleural effusion and no pneumotho rax. No acute bony abnormality seen. No acute aortic findings suspected. IMPRESSION: No acute cardiopulmonary process. No significant change from comparison study.
[2020-09-24 10:25] LABS: Urine Blood NEGATIVE (NEG); Urine Glucose NEGATIVE (NEG); Urine Protein 1+ (NEG)
[2020-09-24] MEDS ORDERED: CIPROFLOXACIN HCL 500 MG TAB ONE (10:36)
[2020-09-24 10:55] LABS: Urine Bacteria 20-50 /HPF (<20); Urine RBC NONE SEEN /HPF (NONE SEEN)
--- NOTE | 2020-09-24 13:37 | EKG ---
Test Date: 2020-09-24 Test Time: 09:18:46 [facility]: [facility] MEASUREMENT RESULTS: Intervals: Rate: 69 DE: 166 QRSD: 78 QT: 396 QTc: 424 [place]: P: 24 DE: 166 QRS: 13 T: -9 INTERPRETIVE STATEMENTS: Normal sinus rhythm Nonspecific T wave abnormality Abnormal ECG Compared to ECG 11/26/2017 08:36:51 No significant changes Electronically Signed On 09-24-20 13:36:52 [employer]PERVIS[employer] by Yasmany Rajan
[2020-09-29 16:49] VITALS: BP 156/88; TEMP 97.9; O2SAT 98
== END 2020-09-24 10:37 | disposition home or self-care (01) ==
LOC: ER 07:55
DX: M79.662 Pain in left lower leg (principal); I12.9 Hypertensive chronic kidney disease with stage 1 through stage 4 chronic kidney disease, or unspecified chronic kidney disease; N18.9 Chronic kidney disease, unspecified; N39.0 Urinary tract infection, site not specified
CPT/HCPCS: 93005; 87088; 85025; 87086; 80048; 36415; 83735; 85610; 80076; 84484; 83690; 83880; 71045; 93970; 96360; 99284; J7040; 81003; 81015

== ENCOUNTER 2022-03-22 11:36 | Emergency (ER) | payer MEDICARE ==
--- OUTSIDE RECORDS SUMMARY | 2022-03-22 11:40 | XMS REPORT | Continuity of Care Document ---
:1960 Author Organization [facility] t Address [address] [place] [address] Care Team Providers Name Role Phone Rosa Elena Traore Primary Care Physician Dangelo Traore Attending Clinician Unavailable Walter Attending Clinician Unavailable Michael Attending Clinician Unavailable CHRISTELLE Attending Clinician Unavailable Taj_R Attending Clinician Unavailable Christelle LANDA Attending Clinician Doctor Unassigned, Name Attending Clinician Unavailable LAZARO Attending Clinician Unavailable Lazaro SANCHEZ Attending Clinician Silver SANCHEZ Attending Clinician Taj_R Admitting Clinician Unavailable Payers Payer Name Policy Type Policy Number Effective Date Expiration Date Ramírez mello [employer] [facility] [id number] 2020 00:00:00 [employer] [facility] [id number] 2021 (MEDICARE 00:00:00 REPLACEMENT HMO) CIGNA MEDICARE - [id number] [facility] PCP FORMERLY [facility] HEALTH [id number] Problems Condition Condition Condition Status Onset Resolution Last Treating Co mments Source Name Details Category Date Date Treatment Clinician Date Swelling Swelling Disease Active Carmita singh of lower of lower 04-21 Colleg e extremity extremity 00:00: of 00 Medicin e Increased Increased Disease Active [facility] BMI (body BMI (body 04-21 Melonie ege mass mass 00:00: of index) index) 00 Medicin e Venous Venous Disease Active [facility] insufficie insufficie 04-21 Co llege ncy ncy 00:00: 00 Medicin e Essential Essential Disease Active Uni vers hypertensi hypertensi 18 it [place] Hyperlipid Hyperlipid Disease Active U nivers emia emia 6-18 ity of 00:00: [place] 00 Medical Branch Venous Venous Disease Active Overview: Univer s (periphera (periphera 05-12 Formattin ity of l) l) 00:00: g of this [place] insufficie insufficie 00 note Me dical ncy ncy might be Branch different from the original. 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 Branch Allergies, Adverse Reactions, Alerts Allergy Allergy Status Severity Reaction(s) Onset Inactive Treating Comm ents Source Name Type Date Date Clinician NO KNOWN Drug Active Univers ALLERGIE Class ity of S [place] [facility] Social History Social Habit Start Date Stop Date Quantity Comments Source History [facility] ge of Alcohol Std Medicine Drinks History [facility] ge of Alcohol Binge Medicine Exposure to Not sure University of SARS-CoV-2 [facility] (event) Branch Alcohol intake 2021-02-24 2021-02-24 Lifetime [facility] Col lege of 00:00:00 00:00:00 non-drinker Medicine (finding) Tobacco use and 2021-02-24 2021-02-[address] [facility] llege of exposure 00:00:00 00:00:00 Medicine History [facility] 2020-04-21 2020-04-[address] [facility] ge of Alcohol Frequency 00:00:00 00:00:00 Medicin e Sex Assigned At [address] [facility] llege of 00:00:00 00:00:00 Medicine Smoking Status Start Date Stop Date Source Never smoker [facility] o f Medicine Medications Ordered Filled Start Stop Current Ordering Indication Dosage Frequency Signature Comments Components Source Medication Medication Date Date Medication? Clinician (SIG) Name Name Eneida Yes [facility] e-Brimonidi 02-24 [place] ne 19:26: of (SIMBRINZA) 17 Medicin 1-0.2 % e ophthalmic suspension Cholecalcif Yes 1{capsu Take 1 Cap [facility] greg 5-06 le} by mouth. [place] (VITAMIN 19:26: of D3) 25 MCG 17 Medicin (1000 UT) e CAPS clobetasol Yes 1 [facility] (TEMOVATE) 02-24 applicatio Col lege 0.05 % 19:26: n to of cream 17 affected Medicin area e esomeprazol Yes 1 tab [facility] (NEXIUM) 02-24 [place] 40 MG 19:26: of capsule 17 Medicin e simvastatin Yes 1 tablet [facility] (ZOCOR) 20 02-24 in the [place] MG tablet 19:26: evening of 17 Medicin e ASPIRIN 81 Yes 81mg Take 81 mg B ayl[facility] OR 02-24 by mouth [place] 19:26: daily. of 17 Medicin e losartan Yes 25mg Take 25 mg Uni vers (COZAAR) 25 3-25 by mouth ity of mg tablet 13:56: daily. [address] Cholecalcif Yes 1{capsu Take 1 Cap Univers greg, 3-25 le} by mouth ity of Vitamin D3, 13:56: daily. [place] (VITAMIN 11 Medical D3) 1,000 Branch unit Cap aspirin Yes 81mg Take 81 mg Univ ers (ASPIRIN 3-25 by mouth ity of CHILDRENS) 13:56: daily. [place] 81 mg Medical chewable Branch tablet losartan Yes 25mg Take 25 mg Uni vers (COZAAR) 25 3-25 by mouth ity of mg tablet 13:56: daily. [address] Branch Cholecalcif Yes 1{capsu Take 1 Cap Univers greg, 3-25 le} by mouth ity of Vitamin D3, 13:56: [place]. [place] (VITAMIN 11 Medical D3) 1,000 Branch unit Cap aspirin 2020-0 Yes 81mg Take 81 mg Univ ers (ASPIRIN 3-25 by mouth ity of CHILDRENS) 13:56: daily. [place] 81 mg 11 Medical chewable Branch tablet losartan 0 Yes 25mg Take 25 mg Uni vers (COZAAR) 25 3-25 by mouth ity of mg tablet 13:56: daily. [place] [address] Medical Branch Cholecalcif 0 Yes 1{capsu Take 1 Cap Univers greg, 3-25 le} by mouth ity of Vitamin D3, 13:56: daily. [place] (VITAMIN 11 Medical D3) 1,000 Branch unit Cap aspirin 2020-0 Yes 81mg Take 81 mg Univ ers (ASPIRIN 3-25 by mouth ity of CHILDRENS) 13:56: daily. [place] 81 mg 11 Medical chewable Branch tablet losartan 0 Yes 25mg Take 25 mg Uni vers (COZAAR) 25 3-25 by mouth ity of mg tablet 13:56: daily. [place] [address] Medical Branch Cholecalcif 0 Yes 1{capsu Take 1 Cap Univers greg, 3-25 le} by mouth ity of Vitamin D3, 13:56: daily. [place] (VITAMIN 11 Medical D3) 1,000 Branch unit Cap aspirin 0 Yes 81mg Take 81 mg Univ ers (ASPIRIN 3-25 by mouth ity of CHILDRENS) 13:56: daily. [place] 81 mg Medical chewable Branch tablet losartan 0 Yes 25mg Take 25 mg Uni vers (COZAAR) 25 3-25 by mouth ity of mg tablet 13:56: daily. [address] Branch Cholecalcif 0 Yes 1{capsu Take 1 Cap Univers greg, 3-25 le} by mouth ity of Vitamin D3, 13:56: daily. [place] (VITAMIN 11 Medical D3) 1,000 Branch unit Cap aspirin 2020-0 Yes 81mg Take 81 mg Univ ers (ASPIRIN 3-25 by mouth ity of CHILDRENS) 13:56: daily. [place] 81 mg 11 Medical chewable Branch tablet losartan 0 Yes 25mg Take 25 mg Uni vers (COZAAR) 25 3-25 by mouth ity of mg tablet 13:56: daily. [address] Branch Cholecalcif 0 Yes 1{capsu Take 1 Cap Univers greg, 3-25 le} by mouth ity of Vitamin D3, 13:56: daily. [place] (VITAMIN 11 Medical D3) 1,000 Branch unit Cap aspirin 2020-0 Yes 81mg Take 81 mg Univ ers (ASPIRIN 3-25 by mouth ity of CHILDRENS) 13:56: daily. [place] 81 mg 11 Medical chewable Branch tablet losartan 0 Yes 25mg Take 25 mg Uni vers (COZAAR) 25 3-25 by mouth ity of mg tablet 13:56: daily. [place] [address] Medical Branch Cholecalcif 0 Yes 1{capsu Take 1 Cap Univers greg, 3-25 le} by mouth ity of Vitamin D3, 13:56: daily. [place] (VITAMIN 11 Medical D3) 1,000 Branch unit Cap aspirin 2020-0 Yes 81mg Take 81 mg Univ ers (ASPIRIN 3-25 by mouth ity of CHILDRENS) 13:56: daily. [place] 81 mg 11 Medical chewable Branch tablet losartan 0 Yes 25mg Take 25 mg Uni vers (COZAAR) 25 3-25 by mouth ity of mg tablet 13:56: daily. [place] [address] Medical Branch Cholecalcif 0 Yes 1{capsu Take 1 Cap Univers greg, 3-25 le} by mouth ity of Vitamin D3, 13:56: daily. [place] (VITAMIN 11 Medical D3) 1,000 Branch unit Cap aspirin 2020-0 Yes 81mg Take 81 mg Univ ers (ASPIRIN 3-25 by mouth ity of CHILDRENS) 13:56: daily. [place] 81 mg 11 Medical chewable Branch tablet losartan 0 Yes 25mg Take 25 mg Uni vers (COZAAR) 25 3-25 by mouth ity of mg tablet 13:56: daily. [place] [address] Medical Branch Cholecalcif 0 Yes 1{capsu Take 1 Cap Univers greg, 3-25 le} by mouth ity of Vitamin D3, 13:56: daily. [place] (VITAMIN 11 Medical D3) 1,000 Branch unit Cap aspirin 2020-0 Yes 81mg Take 81 mg Univ ers (ASPIRIN 3-25 by mouth ity of CHILDRENS) 13:56: daily. [place] 81 mg 11 Medical chewable Branch tablet losartan 2020-0 Yes 25mg Take 25 mg Uni vers (COZAAR) 25 3-25 by mouth ity of mg tablet 13:56: daily. [place] [address] Medical Branch Cholecalcif 0 Yes 1{capsu Take 1 Cap Univers greg, 3-25 le} by mouth ity of Vitamin D3, 13:56: daily. [place] (VITAMIN 11 Medical D3) 1,000 Branch unit Cap aspirin 2020-0 Yes 81mg Take 81 mg Univ ers (ASPIRIN 3-25 by mouth ity of CHILDRENS) 13:56: daily. [place] 81 mg 11 Medical chewable Branch tablet losartan 0 Yes 25mg Take 25 mg Uni vers (COZAAR) 25 3-25 by mouth ity of mg tablet 13:56: daily. [place] [address] Medical Branch Cholecalcif 0 Yes 1{capsu Take 1 Cap Univers greg, 3-25 le} by mouth ity of Vitamin D3, 13:56: daily. [place] (VITAMIN 11 Medical D3) 1,000 Branch unit Cap aspirin 2020-0 Yes 81mg Take 81 mg Univ ers (ASPIRIN 3-25 by mouth ity of CHILDRENS) 13:56: daily. [place] 81 mg 11 Medical chewable Branch tablet losartan 0 Yes 25mg Take 25 mg Uni vers (COZAAR) 25 3-25 by mouth ity of mg tablet 13:56: daily. [place] [address] Medical Branch Cholecalcif Yes 1{capsu Take 1 Cap Univers greg, 3-25 le} by mouth ity of Vitamin D3, 13:56: daily. [place] (VITAMIN 11 Medical D3) 1,000 Branch unit Cap aspirin 0 Yes 81mg Take 81 mg Univ ers (ASPIRIN 3-25 by mouth ity of CHILDRENS) 13:56: daily. [place] 81 mg 11 Medical chewable Branch tablet ASPIRIN 81 0 Yes 81mg Take 81 mg [facility] OR - by mouth [place] 19:24: daily. of 48 Medicin e Brinzolamid Yes [facility] e-Brimonidi 10-28 [place] ne 19:22: of (SIMBRINZA) 58 Medicin 1-0.2 % e ophthalmic suspension Cholecalcif 0 Yes 1{capsu Take 1 Cap [facility] greg 1-07 le} by mouth. [place] (VITAMIN 19:22: of D3) 25 MCG 58 Medicin (1000 UT) e CAPS clobetasol Yes 1 [facility] (TEMOVATE) 10-28 applicatio Col lege 0.05 % 19:22: n to of cream 58 affected Medicin area e esomeprazol Yes 1 tab [facility] (NEXIUM) 10-28 [place] 40 MG 19:22: of capsule 58 Medicin e simvastatin Yes 1 tablet [facility] (ZOCOR) 20 10-28 in the [place] MG tablet 19:22: evening of 58 Medicin e buPROPion 2019-10 Yes 100mg Take 100 [place] jemma (WELLBUTRIN 2-09 mg by [place] ) 100 MG 00:00: mouth of tablet 00 daily. Medicin e buPROPion 2019-10 Yes 100mg Take 100 [place] j[facility]ma (WELLBUTRIN 2-09 mg by [place] ) 100 MG 00:00: mouth of tablet 00 daily. Medicin e buPROPion 2019-10 Yes 100mg Take 100 Uni vers 100 mg 2-09 mg by ity of tablet 00:00: mouth. [address] buPROPion 2019-10 Yes 100mg Take 100 Uni vers 100 mg 2-09 mg by ity of tablet 00:00: mouth. [place] [facility] buPROPion 2019-10 Yes 100mg Take 100 Uni vers 100 mg 2-09 mg by ity of tablet 00:00: mouth. [place] [facility] buPROPion 2019-10 Yes 100mg Take 100 Uni vers 100 mg 2-09 mg by ity of tablet 00:00: mouth. [place] [facility] buPROPion 2019-10 Yes 100mg Take 100 Uni vers 100 mg 2-09 mg by ity of tablet 00:00: mouth. [place] [facility] buPROPion 2019-10 Yes 100mg Take 100 Uni vers 100 mg 2-09 mg by ity of tablet 00:00: mouth. [place] [facility] buPROPion 2019-10 Yes 100mg Take 100 Uni vers 100 mg 2-09 mg by ity of tablet 00:00: mouth. [address] buPROPion 2019-10 Yes 100mg Take 100 Uni vers 100 mg 2-09 mg by ity of tablet 00:00: mouth. [address] buPROPion 2019-10 Yes 100mg Take 100 Uni vers 100 mg 2-09 mg by ity of tablet 00:00: mouth. [place] [facility] buPROPion 2020-1 Yes 100mg Take 100 Uni vers 100 mg 2-09 mg by ity of tablet 00:00: mouth. [address] Branch amlodipine 2020-0 2020- No 1 tablet [facility] (NORVASC) 5 8 08-20 College MG tablet 20:21: 00:00 of 16 :00 Medicin e Brinzolamid 2020-0 Yes [facility] e-Brimonidi 06-10 [place] ne 20:02: of (SIMBRINZA) 23 Medicin 1-0.2 % e ophthalmic suspension Cholecalcif 2020-0 Yes 1{capsu Take 1 Cap [place] greg 06-10 le} by mouth. [place] (VITAMIN 20:02: of D3) 25 MCG 23 Medicin (1000 UT) e CAPS clobetasol 2020-0 Yes 1 [facility] (TEMOVATE) 06-10 applicatio Col lege 0.05 % 20:02: n to of cream 23 affected Medicin area e esomeprazol 2020-0 Yes 1 tab [facility] (NEXIUM) 06-10 [place] 40 MG 20:02: of capsule 23 Medicin e simvastatin 2020-0 Yes 1 tablet [facility] (ZOCOR) 20 06-10 in the [place] MG tablet 20:02: evening of 23 Medicin e amlodipine 2020-0 Yes 1 tablet [place] jemma (NORVASC) 5 04-21 [place] MG tablet 18:43: of 53 Medicin e Brinzolamid 2020-0 Yes [facility] e-Brimonidi 04-21 [place] ne 18:43: of (SIMBRINZA) 53 Medicin 1-0.2 % e ophthalmic suspension Cholecalcif 2020-0 Yes 1{capsu Take 1 Cap [place] greg 04-21 le} by mouth. [place] (VITAMIN 18:43: of D3) 25 MCG 53 Medicin (1000 UT) e CAPS clobetasol 2020-0 Yes 1 [facility] (TEMOVATE) 04-21 applicatio Col lege 0.05 % 18:43: n to of cream 53 affected Medicin area e esomeprazol 2020-0 Yes 1 tab [facility] (NEXIUM) 04-21 [place] 40 MG 18:43: of capsule 53 Medicin e simvastatin 2020-0 Yes 1 tablet [facility] (ZOCOR) 20 04-21 in the [place] MG tablet 18:43: evening of 53 Medicin e Gabapentin Gabapentin 2019-0 Yes Marissa 1 capsule Common 6-23 [place] as needed Spiri t 00:00: for pain - CHI 00 [facility] lisinopril 2019-0 Yes TAKE 1 [facility] (PRINIVIL, 5-14 TABLET BY Melonie ege ZESTRIL) 20 00:00: MOUTH ONCE of MG tablet 00 DAILY FOR Medic in 90 DAYS e lisinopril 2019-0 Yes TAKE 1 [facility] (PRINIVIL, 5-14 TABLET BY Melonie ege ZESTRIL) 20 00:00: MOUTH ONCE of MG tablet 00 DAILY FOR Medic in 90 DAYS e lisinopril 2019-0 Yes TAKE 1 [facility] (PRINIVIL, 5-14 TABLET BY Melonie ege ZESTRIL) 20 00:00: MOUTH ONCE of MG tablet 00 DAILY FOR Medic in 90 DAYS e lisinopril 2019- Yes TAKE 1 [facility] (PRINIVIL, 5-14 TABLET BY Melonie ege ZESTRIL) 20 00:00: MOUTH ONCE of MG tablet 00 DAILY FOR Medic in 90 DAYS e Ferrous 2019-0 Yes TAKE 1 [facility] Sulfate 4-05 TABLET BY [place] (IRON) 325 00:00: MOUTH ONCE o f (65 Fe) MG 00 DAILY FOR Medi madeline TABS 90 DAYS e furosemide 2019-0 Yes TAKE 1 [facility] (LASIX) 20 4-05 TABLET BY Melonie ege MG tablet 00:00: MOUTH ONCE of 00 DAILY FOR Medicin 90 DAYS e Ferrous 2020-0 Yes TAKE 1 [place] Sulfate 4-05 TABLET BY [place] (IRON) 325 00:00: MOUTH ONCE o f (65 Fe) MG 00 DAILY FOR Medi madeline TABS 90 DAYS e furosemide 2019-0 Yes TAKE 1 [facility] (LASIX) 20 4-05 TABLET BY Melonie ege MG tablet 00:00: MOUTH ONCE of 00 DAILY FOR Medicin 90 DAYS e Ferrous 2020-0 Yes TAKE 1 [facility] Sulfate 4-05 TABLET BY [place] (IRON) 325 00:00: MOUTH ONCE o f (65 Fe) MG 00 DAILY FOR Medi madeline TABS 90 DAYS e furosemide 2020-0 Yes TAKE 1 [facility] (LASIX) 20 4-05 TABLET BY Melonie ege MG tablet 00:00: MOUTH ONCE of 00 DAILY FOR Medicin 90 DAYS e Ferrous 2020-0 Yes TAKE 1 [place] Sulfate 4-05 TABLET BY [place] (IRON) 325 00:00: MOUTH ONCE o f (65 Fe) MG 00 DAILY FOR Medi madeline TABS 90 DAYS e furosemide Yes TAKE 1 [facility] (LASIX) 20 4-05 TABLET BY [facility] ege MG tablet 00:00: MOUTH ONCE of 00 DAILY FOR Medicin 90 DAYS e Uloric Uloric 2020- No Marissa 1 tablet Com mon 01-17 [place] Spirit 00:00: 00:00 - CHI 00 :00 [facility] Triamcinolo Triamcinolo Yes Marissa 1 Common ne ne 12-25 [place] applicatio Spir it Acetonide Acetonide 00:00: n to - C HI 00 affected [facility] Febuxostat 2020- No 1 tablet [facility] (ULORIC) 40 12-20 [place] MG TABS 00:00: 05:59 of 00 :00 Medicin e Febuxostat 2020- No 1 tablet [facility] (ULORIC) 40 12-20 [place] MG TABS 00:00: 05:59 of 00 :00 Medicin e triamcinolo Yes Apply to U nivers ne 0.1 % 6-22 area(s) 3 ity of lotion 00:00: (three) [place] 00 times Medical daily. Branch triamcinolo Yes Apply to U nivers ne 0.1 % 6-22 area(s) 3 ity of lotion 00:00: (three) [place] 00 times Medical daily. Branch triamcinolo Yes Apply to U nivers ne 0.1 % 6-22 area(s) 3 ity of lotion 00:00: (three) [place] 00 times Medical daily. Branch triamcinolo Yes Apply to U nivers ne 0.1 % 6-22 area(s) 3 ity of lotion 00:00: (three) [place] 00 times Medical daily. Branch triamcinolo Yes Apply to U nivers ne 0.1 % 6-22 area(s) 3 ity of lotion 00:00: (three) [place] 00 times Medical daily. Branch triamcinolo Yes Apply to U nivers ne 0.1 % 6-22 area(s) 3 ity of lotion 00:00: (three) [place] 00 times Medical daily. Branch triamcinolo 2018-0 Yes Apply to U nivers ne 0.1 % 6-22 area(s) 3 ity of lotion 00:00: (three) [place] 00 times Medical daily. Branch triamcinolo 2018-0 Yes Apply to U nivers ne 0.1 % 6-22 area(s) 3 ity of lotion 00:00: (three) [place] 00 times Medical daily. Branch triamcinolo 2018-0 Yes Apply to U nivers ne 0.1 % 6-22 area(s) 3 ity of lotion 00:00: (three) [place] 00 times Medical daily. Branch triamcinolo 2018-0 Yes Apply to U nivers ne 0.1 % 6-22 area(s) 3 ity of lotion 00:00: (three) [place] 00 times Medical daily. Branch triamcinolo 2018-0 Yes Apply to U nivers ne 0.1 % 6-22 area(s) 3 ity of lotion 00:00: (three) [place] 00 times Medical daily. Branch triamcinolo 2018-0 Yes Apply to U nivers ne 0.1 % 6-22 area(s) 3 ity of lotion 00:00: (three) [place] 00 times Medical daily. Branch triamcinolo 2018-0 Yes Apply to U nivers ne 0.1 % 6-22 area(s) 3 ity of lotion 00:00: (three) [place] 00 times Medical daily. Branch triamcinolo 2018-0 Yes Apply to U nivers ne 0.1 % 6-22 area(s) 3 ity of lotion 00:00: (three) [place] 00 times Medical daily. Branch losartan 2013- Yes 25mg Take 25 mg Uni vers (COZAAR) 25 6-18 by mouth ity of mg tablet 16:22: daily. [address] losartan 2013-0 Yes 25mg Take 25 mg Uni vers (COZAAR) 25 6-18 by mouth ity of mg tablet 16:22: daily. [address] Cholecalcif 2013-0 Yes 1{capsu Take 1 Cap Univers greg, 6-18 le} by mouth ity of Vitamin D3, 15:54: daily. [place] (VITAMIN 30 Medical D3) 1,000 Branch unit Cap aspirin Yes 81mg Take 81 mg Univ ers (ASPIRIN 6-18 by mouth ity of CHILDRENS) 15:54: daily. [place] 81 mg 30 Medical chewable Branch tablet Cholecalcif Yes 1{capsu Take 1 Cap Univers greg, 6-18 le} by mouth ity of Vitamin D3, 15:54: daily. [place] (VITAMIN 30 Medical D3) 1,000 Branch unit Cap aspirin Yes 81mg Take 81 mg Univ ers (ASPIRIN 6-18 by mouth ity of CHILDRENS) 15:54: daily. [place] 81 mg 30 Medical chewable Branch tablet metoprolol Yes 100mg Take 1 Tab Univers tartrate 6-29 by mouth ity of (LOPRESSOR) 00:00: daily. [place] 100 mg 00 Medical tablet Branch metoprolol Yes 100mg Take 1 Tab Univers tartrate 6-29 by mouth ity of (LOPRESSOR) 00:00: daily. [place] 100 mg 00 Medical tablet Branch metoprolol Yes 100mg Take 1 Tab Univers tartrate 6-29 by mouth ity of (LOPRESSOR) 00:00: daily. [place] 100 mg 00 Medical tablet Branch metoprolol Yes 100mg Take 1 Tab Univers tartrate 6-29 by mouth ity of (LOPRESSOR) 00:00: daily. [place] 100 mg 00 Medical tablet Branch metoprolol Yes 100mg Take 1 Tab Univers tartrate 6-29 by mouth ity of (LOPRESSOR) 00:00: daily. [place] 100 mg 00 Medical tablet Branch metoprolol Yes 100mg Take 1 Tab Univers tartrate 6-29 by mouth ity of (LOPRESSOR) 00:00: daily. [place] 100 mg 00 Medical tablet Branch metoprolol Yes 100mg Take 1 Tab Univers tartrate 6-29 by mouth ity of (LOPRESSOR) 00:00: daily. [place] 100 mg 00 Medical tablet Branch metoprolol Yes 100mg Take 1 Tab Univers tartrate 6-29 by mouth ity of (LOPRESSOR) 00:00: daily. [place] 100 mg 00 Medical tablet Branch metoprolol Yes 100mg Take 1 Tab Univers tartrate 6-29 by mouth ity of (LOPRESSOR) 00:00: daily. [place] 100 mg 00 Medical tablet Branch metoprolol Yes 100mg Take 1 Tab Univers tartrate 6-29 by mouth ity of (LOPRESSOR) 00:00: daily. [place] 100 mg 00 Medical tablet Branch metoprolol Yes 100mg Take 1 Tab Univers tartrate 6-29 by mouth ity of (LOPRESSOR) 00:00: daily. [place] 100 mg 00 Medical tablet Branch metoprolol Yes 100mg Take 1 Tab Univers tartrate 6-29 by mouth ity of (LOPRESSOR) 00:00: daily. [place] 100 mg 00 Medical tablet Branch metoprolol Yes 100mg Take 1 Tab Univers tartrate 6-29 by mouth ity of (LOPRESSOR) 00:00: daily. [place] 100 mg 00 Medical tablet Branch metoprolol Yes 100mg Take 1 Tab Univers tartrate 6-29 by mouth ity of (LOPRESSOR) 00:00: daily. [place] 100 mg Medical tablet Branch pravastatin Yes 40mg Take 40 mg Univers (PRAVACHOL) 2-18 by mouth 2 it y of 40 mg 00:00: (two) [place] tablet 00 times Medical daily. Branch ferrous Yes 325mg Take 325 Unive rs sulfate 2-18 mg by ity of (IRON) 325 00:00: mouth [place] mg (65 mg 00 daily. Medical Iron) Branch tablet pravastatin Yes 40mg Take 40 mg Univers (PRAVACHOL) 2-18 by mouth 2 it y of 40 mg 00:00: (two) [place] tablet 00 times Medical daily. Branch ferrous Yes 325mg Take 325 Unive rs sulfate 2-18 mg by ity of (IRON) 325 00:00: mouth [place] mg (65 mg 00 daily. Medical Iron) Branch tablet pravastatin Yes 40mg Take 40 mg Univers (PRAVACHOL) 2-18 by mouth 2 it y of 40 mg 00:00: (two) [place] tablet 00 times Medical daily. Branch ferrous Yes 325mg Take 325 Unive rs sulfate 2-18 mg by ity of (IRON) 325 00:00: mouth [place] mg (65 mg 00 daily. Medical Iron) Branch tablet pravastatin Yes 40mg Take 40 mg Univers (PRAVACHOL) 2-18 by mouth 2 it y of 40 mg 00:00: (two) [place] tablet 00 times Medical daily. Branch ferrous Yes 325mg Take 325 Unive rs sulfate 2-18 mg by ity of (IRON) 325 00:00: mouth [place] mg (65 mg 00 daily. Medical Iron) Branch tablet pravastatin Yes 40mg Take 40 mg Univers (PRAVACHOL) 2-18 by mouth 2 it y of 40 mg 00:00: (two) [place] tablet 00 times Medical daily. Branch ferrous Yes 325mg Take 325 Unive rs sulfate 2-18 mg by ity of (IRON) 325 00:00: mouth [place] mg (65 mg 00 daily. Medical Iron) Branch tablet pravastatin Yes 40mg Take 40 mg Univers (PRAVACHOL) 2-18 by mouth 2 it y of 40 mg 00:00: (two) [place] tablet 00 times Medical daily. Branch ferrous Yes 325mg Take 325 Unive rs sulfate 2-18 mg by ity of (IRON) 325 00:00: mouth [place] mg (65 mg 00 daily. Medical Iron) Branch tablet pravastatin Yes 40mg Take 40 mg Univers (PRAVACHOL) 2-18 by mouth 2 it y of 40 mg 00:00: (two) [place] tablet 00 times Medical daily. Branch ferrous Yes 325mg Take 325 Unive rs sulfate 2-18 mg by ity of (IRON) 325 00:00: mouth [place] mg (65 mg 00 daily. Medical Iron) Branch tablet pravastatin Yes 40mg Take 40 mg Univers (PRAVACHOL) 2-18 by mouth 2 it y of 40 mg 00:00: (two) [place] tablet 00 times Medical daily. Branch ferrous Yes 325mg Take 325 Unive rs sulfate 2-18 mg by ity of (IRON) 325 00:00: mouth [place] mg (65 mg 00 daily. Medical Iron) Branch tablet pravastatin Yes 40mg Take 40 mg Univers (PRAVACHOL) 2-18 by mouth 2 it y of 40 mg 00:00: (two) [place] tablet 00 times Medical daily. Branch ferrous Yes 325mg Take 325 Unive rs sulfate 2-18 mg by ity of (IRON) 325 00:00: mouth [place] mg (65 mg 00 daily. Medical Iron) Branch tablet pravastatin Yes 40mg Take 40 mg Univers (PRAVACHOL) 2-18 by mouth 2 it y of 40 mg 00:00: (two) [place] tablet 00 times Medical daily. Branch ferrous Yes 325mg Take 325 Unive rs sulfate 2-18 mg by ity of (IRON) 325 00:00: mouth [place] mg (65 mg 00 daily. Medical Iron) Branch tablet pravastatin Yes 40mg Take 40 mg Univers (PRAVACHOL) 2-18 by mouth 2 it y of 40 mg 00:00: (two) [place] tablet 00 times Medical daily. Branch ferrous Yes 325mg Take 325 Unive rs sulfate 2-18 mg by ity of (IRON) 325 00:00: mouth [place] mg (65 mg 00 daily. Medical Iron) Branch tablet pravastatin Yes 40mg Take 40 mg Univers (PRAVACHOL) 2-18 by mouth 2 it y of 40 mg 00:00: (two) [place] tablet 00 times Medical daily. Branch ferrous Yes 325mg Take 325 Unive rs sulfate 2-18 mg by ity of (IRON) 325 00:00: mouth [place] mg (65 mg 00 daily. Medical Iron) Branch tablet pravastatin Yes 40mg Take 40 mg Univers (PRAVACHOL) 2-18 by mouth 2 it y of 40 mg 00:00: (two) [place] tablet 00 times Medical daily. Branch ferrous Yes 325mg Take 325 Unive rs sulfate 2-18 mg by ity of (IRON) 325 00:00: mouth [place] mg (65 mg 00 daily. Medical Iron) Branch tablet pravastatin Yes 40mg Take 40 mg Univers (PRAVACHOL) 2-18 by mouth 2 it y of 40 mg 00:00: (two) [place] tablet 00 times Medical daily. Branch ferrous Yes 325mg Take 325 Unive rs sulfate 2-18 mg by ity of (IRON) 325 00:00: mouth [place] mg (65 mg 00 daily. Medical Iron) Branch tablet nexium nexium Yes Marissa 1 tab [facility] Furosemide Furosemide Yes Marissa 1 tablet Common Millender [facility] Norvasc Norvasc Yes Marissa 1 tablet Comm [facility] Lumigan Lumigan Yes Marissa 1 drop Common Millender into [facility] affected - [facility] eye in the [facility] Aspir-81 Aspir-81 Yes Marissa 1 tablet Co mmon Millender [facility] Temovate Temovate Yes Marissa 1 Common Millender applicatio Spir it n to - [facility] affected [facility] Ferrous Ferrous Yes Marissa 1 tablet Comm on Sulfate Sulfate Millender Spir it - [facility] Lisinopril Lisinopril Yes Marissa 1-2 Co mmon Millender tablets [facility] Simvastatin Simvastatin Yes Marissa 1 tablet Common Millender in the [facility] evening - [facility] Immunizations Ordered Filled Immunization Date Status Comments [facility] e Immunization Name Name [facility] 2014-04-08 Completed University of 00:00:00 [facility] 2014-04-08 Completed University of 00:00:00 [place] [facility] TDAP 2014-04-08 Completed [facility]00 [facility] Completed University of 00:00:00 [facility] TDAP 2014-04-08 Completed University of 00:00:00 [facility] TDAP 2014-04-08 Completed University of 00:00:00 [facility] TDAP 2014-04-08 Completed University of 00:00:00 [facility] TDAP 2014-04-08 Completed University of 00:00:00 [facility] TDAP 2014-04-08 Completed University of 00:00:00 [facility] TDAP 2014-04-08 Completed University of 00:00:00 [facility] TDAP 2014-04-08 Completed University of 00:00:00 [facility] TDAP 2014-04-08 Completed University of 00:00:00 [facility] TDAP 2014-04-08 Completed University of 00:00:00 [facility] TDAP 2014-04-08 Completed University of 00:00:00 [facility] Vital Signs Vital Name Observation Time Observation Value Comments Source Systolic blood 2021-06-15 14:30:00 131 mm[Hg] Univer sity of pressure [facility] Diastolic blood 2021-06-15 14:30:00 75 mm[Hg] Unive rsity of pressure [facility] Heart rate 2021-06-15 14:25:00 78 /min [facility] [place] [facility] Body temperature 2021-06-15 14:25:00 36.78 Sasha [facility] [place] [facility] Respiratory rate 2021-06-15 14:25:00 18 /min [facility] [place] [facility] Body height 2021-06-15 14:25:00 170.2 cm [facility] [place] [facility] Body weight 2021-06-15 14:25:00 113.671 kg [facility] [place] [facility] BMI 2021-06-15 14:25:00 39.25 kg/m2 Universi ty of [facility] Branch Systolic blood 2021-02-24 19:24:00 130 mm[Hg] [facility] Medicine Diastolic blood 2021-02-24 19:24:00 80 mm[Hg] [facility] Medicine Heart rate 2021-02-24 19:24:00 82 /min [facility] Respiratory rate 2021-02-24 19:24:00 16 /min [facility] Body height 2021-02-24 19:24:00 170.2 cm [facility] Body weight 2021-02-24 19:24:00 112.583 kg [facility] BMI 2021-02-24 19:24:00 38.87 kg/m2 [facility] Systolic blood 2021-01-13 13:54:00 125 mm[Hg] Univer sity of [facility] Branch Diastolic blood 2021-01-13 13:54:00 69 mm[Hg] Unive rsity of pressure [facility] Branch Heart rate 2021-01-13 13:54:00 75 /min [facility] [place] [facility] Body temperature 2021-01-13 13:54:00 36.67 Sasha [facility] [place] [facility] Respiratory rate 2021-01-13 13:54:00 16 /min [facility] [place] [facility] Body height 2021-01-13 13:54:00 170.2 cm [facility] [place] [facility] Body weight 2021-01-13 13:54:00 109.045 kg [facility] [place] [facility] BMI 2021-01-13 13:54:00 37.65 kg/m2 [facility] [place] [facility] BMI 2020-10-28 19:18:00 39.12 kg/m2 [facility] Systolic blood 2020-10-28 19:18:00 126 mm[Hg] [facility] pressure Medicine Diastolic blood 2020-10-28 19:18:00 75 mm[Hg] [facility] pressure Medicine Heart rate 2020-10-28 19:18:00 74 /min [facility] of Medicine Body temperature 2020-10-28 19:18:00 36.06 Sasha [facility] Respiratory rate 2020-10-28 19:18:00 16 /min [facility] Body height 2020-10-28 19:18:00 170.2 [facility] Body weight 2020-10-28 19:18:00 113.309 [facility] BMI 2020-10-28 19:18:00 39.12 kg/m2 [facility] Systolic blood 2020-10-28 19:18:00 126 mm[Hg] [facility] pressure Medicine Diastolic blood 2020-10-28 19:18:00 75 mm[Hg] [facility] Medicine Heart rate 2020-10-28 19:18:00 74 /min [facility] of Medicine Body temperature 2020-10-28 19:18:00 36.06 Sasha [facility] Respiratory rate 2020-10-28 19:18:00 16 /min [facility] Body height 2020-10-28 19:18:00 170.2 cm [facility] Body weight 2020-10-28 19:18:00 113.309 [facility] Systolic blood 2020-06-10 19:59:00 119 mm[Hg] [facility] pressure Medicine Diastolic blood 2020-06-10 19:59:00 75 mm[Hg] [facility] pressure Medicine Heart rate 2020-06-10 19:59:00 71 /min [facility] Body temperature 2020-06-10 19:59:00 36.67 Sasha [facility] Respiratory rate 2020-06-10 19:59:00 16 /min [facility] Body height 2020-06-10 19:59:00 170.2 cm [facility] ollege of Medicine Body weight 2020-06-10 19:59:00 112.492 kg [facility] ol[facility] of Medicine BMI 2020-06-10 19:59:00 38.84 kg/m2 [facility] ollege of Medicine Systolic blood 2020-06-10 19:59:00 119 mm[Hg] [facility] Diastolic blood 2020-06-10 19:59:00 75 mm[Hg] [facility] Medicine Heart rate 2020-06-10 19:59:00 71 /min [facility] ollege of Medicine Body temperature 2020-06-10 19:59:00 36.67 Sasha [facility] Respiratory rate 2020-06-10 19:59:00 16 /min [facility] Body height 2020-06-10 19:59:00 170.2 cm [facility] ollege of Medicine Body weight 2020-06-10 19:59:00 112.492 kg [facility] ol[facility] of Medicine BMI 2020-06-10 19:59:00 38.84 kg/m2 [facility] of Medicine Systolic blood 2020-04-21 18:39:00 150 mm[Hg] [facility] pressure Medicine Diastolic blood 2020-04-21 18:39:00 88 mm[Hg] [facility] Medicine Heart rate 2020-04-21 18:39:00 78 /min [facility] ollege of Medicine Body height 2020-04-21 18:39:00 170.2 cm [facility] ollege of Medicine Body weight 2020-04-21 18:39:00 111.494 kg [facility] ollege of Medicine BMI 2020-04-21 18:39:00 38.50 kg/m2 [facility] ollege of Medicine Systolic blood 2020-04-21 18:39:00 150 mm[Hg] [facility] of pressure Medicine Diastolic blood 2020-04-21 18:39:00 88 mm[Hg] [facility] of pressure Medicine Heart rate 2020-04-21 18:39:00 78 /min [facility] ollege of Medicine Body height 2020-04-21 18:39:00 170.2 cm [facility] ollege of Medicine Body weight 2020-04-21 18:39:00 111.494 kg [facility] BMI 2020-04-21 18:39:00 38.50 kg/m2 [facility] Procedures Procedure Date / Time Performing Clinician Source Performed US PELVIS COMPLETE WITH 2021-05-11 15:20:44 Shilpa Bourgeois [facility] TRANSVAGINAL Medical Branch ASSIGNMENT OF BENEFITS 2021-05-11 13:41:33 Doctor Unassigned, Un [facility] Medical Branch CBC W/AUTO DIFF WITH 2021-02-24 14:49:02 [facility] PLATELETS Medicine COMPREHENSIVE METABOLIC 2021-02-24 14:49:02 [facility] PANEL Medicine RANDOM URINE 2021-02-24 14:49:02 [facility] of PROTEIN/CREATININE Medicine URINALYSIS AUTO W/SCOPE 2021-02-24 14:49:02 [facility] KAPPA/LAMBDA LIGHT CHAINS, 2021-02-24 14:49:02 B [facility] WITH RATIO Medicine PROTEIN ELECTROPHORESIS 2021-02-24 14:49:02 [facility] SERUM Medicine EXTERNAL PROVIDER RECORDS 2021-01-24 05:01:00 Doctor James, [facility] Name Medical Branch INSURANCE CORRESPONDENCE 2021-01-19 05:01:00 [facility] Name Medical Branch AUTHORIZATION TO RELEASE 2021-01-13 05:01:00 Doctor James, [facility] PHI TO [facility] Name Medical [place] Plan of Care Planned Activity Planned Date Details Comments Source Diagnostic Test 2020-06-10 ECHO,COMPLETE WITH Expected: [facility] Pending 00:00:00 SALINE [code = 86655-5] 06/10/2020, of M edicine Expires: 06/10/2021 Future Scheduled CBC W/AUTO DIFF WITH Ordered: [facility] Test PLATELETS [code = 10/28/2020 of Medicin e 59706-7] Future Scheduled PROTEIN ELECTROPHORESIS Ordered: [facility] Test SERUM [code = 55782-2] 10/28/2020 of Me dicine Future Scheduled FREE LIGHT CHAINS-SERUM Ordered: [facility] Test [code = NOCPT] 10/28/2020 of Medicine Future Scheduled HEPATITIS PANEL [code = Ordered: [facility] Test 13831-8] 10/28/2020 of Medicine Future Scheduled HAROON AUTOIMMUNE PROFILE [facility] = [facility] 10/28/2020 of Medicine Future Scheduled COLON CANCER SCREENING: [facility] Test COLONOSCOPY [code = of Medic ine COLON CANCER SCREENING: COLONOSCOPY] Future Scheduled COVID-19 Vaccine [facility] Test Evaluation [code = of Medici ne COVID-19 Vaccine Evaluation] Future Scheduled MAMMOGRAM ANNUAL [code [facility] Test = MAMMOGRAM ANNUAL] of Medic ine Future Scheduled HEPATITIS C SCREENING [employer] Test [code = HEPATITIS C of Medic ine SCREENING] Future Scheduled HIV SCREENING [code = [employer] Test HIV SCREENING] of Medicine Future Scheduled CERVICAL CANCER [facility] ollege Test SCREENING 3 YEAR FOLLOW of M edicine UP [code = CERVICAL CANCER SCREENING 3 YEAR FOLLOW UP] Future Scheduled ZOSTER VACCINE (1 of 2) [facility] Test [code = ZOSTER VACCINE of Me dicine (1 of 2)] Future Scheduled [facility] ([facility]code = [facility]ARE AWV of Medi cine (Initial)] Future Scheduled FLU VACCINE > 6 MONTHS [facility] [code = FLU VACCINE > 6 of edicine MONTHS] Future Scheduled BMI FOLLOW UP PLAN [facility] [place] Test [code = BMI FOLLOW UP of Med icine PLAN] Future Scheduled TETANUS SHOT (ADULT) [employer] Test [code = TETANUS SHOT of Medi cine (ADULT)] Future Scheduled CBC W/AUTO DIFF WITH Ordered: [facility] Test PLATELETS [code = 02/24/2021 of Medicin e 96813-2] Future Scheduled COMPREHENSIVE METABOLIC Ordered: [facility] Test PANEL [code = 82976-4] 02/24/2021 of Me dicine Future Scheduled RANDOM URINE Ordered: [facility] Test PROTEIN/CREATININE 02/24/2021 of Medici ne [code = 2890-2] Future Scheduled URINALYSIS AUTO W/SCOPE Ordered: [facility] Test [code = 83406-4] 02/24/2021 of Medicine Future Scheduled KAPPA/LAMBDA LIGHT Ordered: [facility] Test CHAINS, FREE WITH RATIO 02/24/2021 of M edicine [code = 23237-4] Future Scheduled PROTEIN ELECTROPHORESIS Ordered: [facility] Test SERUM [code = 62678-8] 02/24/2021 of Me dicine Future Scheduled Screening for malignant [facility] Test neoplasm of colon of Medicin e (procedure) [code = 807531872] Future Scheduled Screening for malignant [employer] Test neoplasm of breast of Medici ne (procedure) [code = 601634537] Future Scheduled COVID-19 Vaccine (1) [employer] Test [code = COVID-19 of Medicine Vaccine (1)] Future Scheduled Human immunodeficiency [employer] Test virus screening of Medicine (procedure) [code = 080403444] Future Scheduled Screening for malignant [facility] Test neoplasm of cervix of Medici ne (procedure) [code = 476814380] Future Scheduled ZOSTER VACCINE (1 of 2) [facility] Test [code = ZOSTER VACCINE of Me dicine (1 of 2)] Future Scheduled MEDICARE AWV (Initial) [employer] Test [code = MEDICARE AWV of Medi cine (Initial)] Future Scheduled BMI FOLLOW UP PLAN [employer] Test [code = BMI FOLLOW UP of Med icine PLAN] Future Scheduled FLU VACCINE > 6 MONTHS [employer] Test [code = FLU VACCINE > 6 of M edicine MONTHS] Future Scheduled TETANUS SHOT (ADULT) [employer] Test [code = TETANUS SHOT of Medi cine (ADULT)] Future Scheduled COMPRESSION STOCKING Ordered: [employer] Test 15-20MM [code = NOCPT] 04/21/2020 of Me dicine Future Scheduled COLON CANCER SCREENING: [facility] Test COLONOSCOPY [code = of Medic ine COLON CANCER SCREENING: COLONOSCOPY] Future Scheduled MAMMOGRAM ANNUAL [code [employer] Test = MAMMOGRAM ANNUAL] of Medic ine Future Scheduled TETANUS SHOT (ADULT) [employer] Test [code = TETANUS SHOT of Medi cine (ADULT)] Future Scheduled BMI FOLLOW UP PLAN [employer] Test [code = BMI FOLLOW UP of Med icine PLAN] Future Scheduled HEPATITIS C SCREENING [employer] Test [code = HEPATITIS C of Medic ine SCREENING] Future Scheduled HIV SCREENING [code = [employer] Test HIV SCREENING] of Medicine Future Scheduled CERVICAL CANCER [facility] C ollege Test SCREENING 3 YEAR FOLLOW of M edicine UP [code = CERVICAL CANCER SCREENING 3 YEAR FOLLOW UP] Future Scheduled MEDICARE IPPE (WELCOME [employer] [facility] TO MEDICARE) [code = of Medi cine MEDICARE IPPE (WELCOME TO MEDICARE)] Future Scheduled FLU VACCINE > 6 MONTHS [employer] Test [code = FLU VACCINE > 6 of M edicine MONTHS] Future Scheduled CBC W/AUTO DIFF WITH Ordered: [employer] Test PLATELETS [code = 06/10/2020 of Medicin e 60292-7] Future Scheduled COMPREHENSIVE METABOLIC Ordered: [facility] Test PANEL [code = 78935-6] 06/10/2020 of Me dicine Future Scheduled RANDOM URINE Ordered: [facility] Test PROTEIN/CREATININE 06/10/2020 of Medici ne [code = 2890-2] Future Scheduled URINALYSIS AUTO W/SCOPE Ordered: [facility] Test [code = 04055-1] 06/10/2020 of Medicine Future Scheduled TSH [code = 11808-7] Ordered: [facility] Test 06/10/2020 of Medicine Future Scheduled T4 FREE [code = 3024-7] Ordered: [facility] Test 06/10/2020 of Medicine Future Scheduled COLON CANCER SCREENING: [facility] Test COLONOSCOPY [code = of Medic ine COLON CANCER SCREENING: COLONOSCOPY] Future Scheduled MAMMOGRAM ANNUAL [code [facility] Test = MAMMOGRAM ANNUAL] of Medic ine Future Scheduled TETANUS SHOT (ADULT) [facility] Test [code = TETANUS SHOT of Medi cine (ADULT)] Future Scheduled HEPATITIS C SCREENING [facility] Test [code = HEPATITIS C of Medic ine SCREENING] Future Scheduled HIV SCREENING [code = [employer] [facility] HIV SCREENING] of Medicine Future Scheduled CERVICAL CANCER [facility] C ada Test SCREENING 3 YEAR FOLLOW of M edicine UP [code = CERVICAL CANCER SCREENING 3 YEAR FOLLOW UP] Future Scheduled ZOSTER VACCINE (1 of 2) [facility] Test [code = ZOSTER VACCINE of Me dicine (1 of 2)] Future Scheduled MEDICARE IPPE (WELCOME [employer] [facility] TO MEDICARE) [code = of Medi cine MEDICARE IPPE (WELCOME TO MEDICARE)] Future Scheduled FLU VACCINE > 6 MONTHS [employer] Test [code = FLU VACCINE > 6 of M edicine MONTHS] Future Scheduled BMI FOLLOW UP PLAN [facility] Test [code = BMI FOLLOW UP of Med icine PLAN] Future Scheduled BASIC METABOLIC PANEL Ordered[facility] [employer] Test [code = 62386-2] 10/28/2020 of Medicine Future Scheduled URIC ACID [code = Ordered: [facility] Test 3084-1] 10/28/2020 of Medicine Future Scheduled PTH INTACT [code = Ordered: [employer] Test 2731-8] 10/28/2020 of Medicine Future Scheduled VITAMIN D 25 HYDROXY Ordered: [facility] Test [code = 1989-3] 10/28/2020 of Medicine Future Scheduled PHOSPHORUS [code = Ordered: [employer] Test 2777-1] 10/28/2020 of Medicine Future Scheduled US RENAL BILATERAL 1 Occurrences [employer] Test [code = 30548] starting of Medicine 10/28/2020 until 10/28/2021 Encounters Start End Encounter Admission Attending Care Care Encounter Source Date/Time Date/Time Type Type Clinicians Facility Department ID 2022-02-22 Outpatient Traore, Na STLMLC STLMLC [id number] Common 08:24:02 [facility] 2022-01-16 Outpatient Traore, Na STLMLC STLMLC [id number] Common 10:10:00 [facility] 2021-11-16 Outpatient Traore, Na STLMLC STLMLC [id number] Common 14:32:02 [facility] 2021-11-16 Outpatient Traore, Na STLMLC STLMLC [id number] Common 14:31:06 [facility] 2021-11-16 Outpatient Traore, Na STLMLC STLMLC [id number] Common 13:09:20 [facility] 2021-11-16 Outpatient Traore, Na STLMLC STLMLC [id number] Common 12:39:12 [id number] [facility] 2021-11-16 Outpatient Traore, Na STLMLC STLMLC [id number] Common 12:34:08 [facility] 2021-11-16 Outpatient Traore, Na STLMLC STLMLC [id number] Common 12:25:21 [facility] 2021-11-16 Outpatient Traore, Na STLMLC STLMLC [id number] Common 12:25:09 [facility] 2021-11-16 Outpatient Traore, Na STLMLC STLMLC [id number] Common 12:14:55 [id number] [facility] 2021-11-16 Outpatient Watson, Kin STLMLC STLMLC [id number] Common 12:14:45 [id number] [facility] 2021-11-16 Outpatient Azar Watson STLMLC STLMLC [id number] Common 12:11:09 [id number] [facility] 2021-11-16 Outpatient Azar Watson STLMLC STLMLC [id number] Common 12:08:17 [id number] [facility] 2021-11-16 Outpatient Azar Watson STLMLC STLMLC [id number] Common 12:06:49 85218 [facility] 2021-11-16 Outpatient STLMLC STLMLC [id number] Common 12:01:10 [id number] [facility] 2021-11-16 Outpatient Millender, STLMLC STLMLC [id number] Common 11:27:56 Marissa [id number] [facility] 2021-11-16 Outpatient Millender, STLMLC STLMLC [id number] Common 11:13:44 Marissa 62010 [facility] 2021-11-16 Outpatient Millender, STLMLC STLMLC [id number] Common 11:09:05 Marissa [id number] [facility] 2021-11-16 Outpatient Millender, STLMLC STLMLC [id number] Common 11:06:45 Marissa [id number] [facility] 2022-06-15 2022-06-15 Outpatient [facility]it [facility] [id number] Univers 09:30:00 09:30:00 SHILPA [id number] [facility] 2022-06-15 2022-06-15 Outpatient Ranjit [facility] [id number] Univers 09:30:00 09:30:00 SHILPA [facility] 2022-03-16 2022-03-16 ambulatory STLMLC STLMLC [id number] Common 00:00:00 00:00:00 [facility] 2022-03-09 2022-03-09 ambulatory STLMLC STLMLC [id number] Common 00:00:00 00:00:00 [facility] 2022-03-02 2022-03-02 ambulatory STLMLC STLMLC [id number] Common 00:00:00 00:00:00 [facility] 2022-02-24 2022-02-24 ambulatory STLMLC STLMLC [id number] Common 00:00:00 00:00:00 [facility] 2022-01-18 2022-01-18 ambulatory STLMLC STLMLC [id number] Common 00:00:00 00:00:00 [facility] 2022-01-16 2022-01-16 ambulatory STLMLC STLMLC [id number] Common 00:00:00 00:00:00 [facility] 2021-12-16 2021-12-16 ambulatory STLMLC STLMLC [id number] Common 00:00:00 00:00:00 [facility] 2021-12-13 2021-12-13 ambulatory STLMLC STLMLC [id number] Common 00:00:00 00:00:00 [facility] 2021-12-12 2021-12-12 ambulatory STLMLC STLMLC [id number] Common 00:00:00 00:00:00 [facility] 2021-11-23 2021-11-23 ambulatory STLMLC STLMLC [id number] Common 00:00:00 00:00:00 [facility] 2021-11-16 2021-11-16 ambulatory STLMLC STLMLC [id number] Common 00:00:00 00:00:00 [facility] 2021-10-31 2021-10-31 Outpatient Adams_R DMG DMG [id number] Dev[facility] 09:57:00 09:57:00 0110 [facility] 2021-10-18 2021-10-18 Outpatient DMG DMG [id number] [facility] 12:00:00 12:00:00 1228 [facility] l [facility] 2021-09-09 2021-09-09 ambulatory STLMLC STLMLC [id number] Common 00:00:00 00:00:00 [facility] 2021-08-29 2021-08-29 Outpatient DMG DMG [id number] [facility] 11:02:00 11:02:00 1108 Medica l Group 2021-08-18 2021-08-18 Outpatient STLMLC STLMLC [id number] Common 00:00:00 00:00:00 [facility] 2021-08-18 2021-08-18 Outpatient STLMLC STLMLC [id number] Common 00:00:00 00:00:00 [facility] 2021-08-18 2021-08-18 ambulatory STLMLC STLMLC [id number] Common 00:00:00 00:00:00 [facility] 2021-08-15 2021-08-15 Outpatient STLMLC STLMLC [id number] Common 00:00:00 00:00:00 [facility] 2021-07-08 2021-07-08 Outpatient STLMLC STLMLC [id number] Common 00:00:00 00:00:00 [facility] 2021-06-21 2021-06-21 Outpatient STLMLC STLMLC [id number] Common 00:00:00 00:00:00 [facility] 2021-06-15 2021-06-15 [facility] [id number] Univers 09:22:29 09:49:00 Visit Shilpa Mandujano [id number] sarah redd [facility] [id number] Evert Martinez [id number] Mo dical [address] 2021-06-15 2021-06-15 Outpatient Ranjit [facility] [id number] Univers 09:00:00 09:00:00 SHILPA [id number] [facility] 2021-06-15 2021-06-15 Outpatient Ranjit [facility] [id number] Univers 09:00:00 09:00:00 HSILPA [facility] 2021-06-10 2021-06-10 Outpatient STLMLC STLMLC [id number] Common 00:00:00 00:00:00 [facility] 2021-06-10 2021-06-10 Outpatient STLMLC STLMLC [id number] Common 00:00:00 00:00:00 [facility] 2021-05-11 2021-05-11 [facility] [id number] Univers 08:42:39 23:59:00 Encounter Shilpa Mandujano [id number] [facility] [place] [id number] [facility] [id number] [facility] 806 [place] 2021-05-11 2021-05-11 [facility] [id number] Univers 10:00:00 10:00:00 SHILPA [id number] [facility] 2021-05-11 2021-05-11 Outpatient R [facility] [id number] Univers 00:00:00 00:00:00 [facility] 2021-05-11 2021-05-11 Orders Doctor WHEELER 1.2.840.114 [id number] Univers 00:00:00 00:00:00 Only Unassigned, KODY 350.1.13.10 ity of [facility] 4.2.7.2.686 [facility] [phone] [facility] [address] 2021-03-23 2021-03-23 Outpatient STLMLC STLMLC [id number] Common 00:00:00 00:00:00 [facility] 2021-02-24 2021-02-24 Office SEGUNDO WILLIS 1.2.840.114 [id number] [facility] 14:21:19 14:59:27 Visit JINGYIN AMBULATOR 350.1.13.21 College Y 0.2.7.2.686 [id number] [facility] 335 e 2021-01-26 2021-01-26 Outpatient STLMLC STLMLC [id number] Common 00:00:00 00:00:00 [facility] 2021-01-24 2021-01-24 Orders Doctor WHEELER 1.2.840.114 [id number] Univers 00:00:00 00:00:00 Only Unassigned, KODY 350.1.13.10 ity of [facility] 4.2.7.2.686 Donovan as [phone] [address] 2021-01-19 2021-01-19 Orders Doctor LIAM 1.2.840.114 [id number] Univers 00:00:00 00:00:00 Only Unassigned, KODY 350.1.13.10 ity of [facility] 4.2.7.2.686 Donovan as [phone] [address] 2021-01-13 2021-01-13 Office Christelle [facility] [id number] Univers 08:35:32 09:20:50 Visit Shilpa Mandujano 350.1.13.10 i ty of [place] [phone] Mo dical [address] 2021-01-13 2021-01-13 [facility] [id number] Univers 09:00:00 09:00:[address] [facility] 2021-01-13 2021-01-13 Orders Doctor LIAM 1.2.840.114 [id number] Univers 00:00:00 00:00:00 Only Unassigned, KODY 350.1.13.10 ity of [facility] 4.2.7.2.686 Donovan as [phone] [address] 2021-01-13 2021-01-13 Letter Doctor WHEELER 1.2.840.114 [id number] Univers 00:00:00 00:00:00 (Out) Unassigned, KODY 350.1.13.10 ity of [facility] 4.2.7.2.686 Donovan as [phone] [address] 2021-01-13 2021-01-13 Letter Doctor LIAM Curran2.840.114 [id number] Univers 00:00:00 00:00:00 (Out) Unassigned, KODY 350.1.13.10 ity of [facility] 4.2.7.2.686 Donovan as [phone] [address] 2021-01-04 2021-01-04 Case Christelle [facility] [id number] Univers 00:00:00 00:00:00 Management Shilpa Mandujano 350.1.13.10 Nando 4.2.7.2.686 Donovangermaine lauren Juan [phone] [address] 2021-01-03 2021-01-03 Outpatient STLMLC STLMLC [id number] Common 00:00:00 00:00:00 [facility] 2020-12-21 2020-12-21 Outpatient STLMLC STLMLC [id number] Common 00:00:00 00:00:00 [facility] 2020-11-16 2020-11-16 Outpatient STLMLC STLMLC [id number] Common 00:00:00 00:00:00 [facility] 2020-11-10 2020-11-10 Outpatient STLMLC STLMLC [id number] Common 00:00:00 00:00:00 [facility] 2020-10-28 2020-10-28 Office Lazaro, SEGUNDO 1.2.840.[id number] [place] [address] 12:28:11 13:52:06 Visit Jingyin AMBULATOR 350.1.13.21 College Y 0.2.7.2.686 of [id number] [facility] 335 e 2020-10-28 2020-10-28 Office Lazaro, BCScott 1.2.840.114 [id number] 12:28:11 13:52:06 Visit Jingyin AMBULATOR 350.1.13.21 Y 0.2.7.2.686 [id number] 2020-10-12 2020-10-12 Outpatient STLMLC STLMLC [id number] Common 00:00:00 00:00:00 [facility] 2020-10-11 2020-10-11 Outpatient STLMLC STLMLC [id number] Common 00:00:00 00:00:00 [facility] 2020-09-30 2020-09-30 Outpatient STLMLC STLMLC [id number] Common 00:00:00 00:00:00 [facility] 2020-09-29 2020-09-29 Outpatient STLMLC STLMLC [id number] Common 00:00:00 00:00:00 [facility] 2020-09-14 2020-09-14 Outpatient STLMLC STLMLC [id number] Common 00:00:00 00:00:00 [facility] 2020-09-14 2020-09-14 Outpatient STLMLC STLMLC [id number] Common 00:00:00 00:00:00 [facility] 2020-09-14 2020-09-14 Outpatient STLMLC STLMLC [id number] Common 00:00:00 00:00:00 [facility] 2020-09-13 2020-09-13 Outpatient STLMLC STLMLC [id number] Common 00:00:00 00:00:00 [facility] 2020-06-24 2020-06-[address] [facility] [id number] Common 09:50:00 09:50:00 [facility] 2020-06-10 2020-06-10 Office SEGUNDO Willis 1.2.840.[id number] [place] [address] 14:57:11 15:34:42 Visit Jingyin AMBULATOR 350.1.13.21 College Y 0.2.7.2.686 of [phone] [facility] 335 e 2020-06-10 2020-06-10 Office SEGUNDO Willis 1.2.840.114 [id number] 14:57:11 15:34:42 Visit Jingyin AMBULATOR 350.1.13.21 Y 0.2.7.2.686 [id number] 335 2020-06-09 2020-06-09 [facility] [id number] Common 16:32:00 16:32:00 [facility] 2020-05-28 2020-05-28 [facility] [id number] Common 11:43:00 11:43:00 [facility] 2020-04-21 2020-04-21 Office SEGUNDO Sheppard 1.2.840.114 [id number] 13:26:16 15:01:50 Visit Jayer AMBULATOR 350.1.13.21 Y 0.2.7.2.686 [id number] 2020-04-21 2020-04-21 Office SEGUNDO Sheppard 1.2.840.[id number] [place] [address] 13:26:16 15:01:50 Visit Jayer AMBULATOR 350.1.13.21 College Y 0.2.7.2.686 [id number] [facility] 825 e 2020-04-13 2020-04-13 [facility] [id number] Common 09:20:00 09:20:[address] [facility] 2020-03-10 2020-03-10 [facility] [id number] Common 16:01:00 16:01:[address] [facility] 2020-01-25 2020-01-25 [facility] [id number] Common 13:49:00 13:49:[address] [facility] 2020-01-02 2020-01-02 [facility] [id number] Common 09:45:00 09:45:[address] [facility] 2019-12-02 2019-12-02 [facility] [id number] Common 09:15:00 09:15:[address] [facility] 2019-11-17 2019-11-17 [facility] [id number] Common 14:50:00 14:50:[address] [facility] 2019-09-26 2019-09-26 [facility] [id number] Common 10:00:00 10:00:[address] [facility] 2019-07-22 2019-07-22 [facility] [id number] Common 11:05:00 11:05:[address] [facility] 2019-06-30 2019-06-30 [facility] [id number] Common 10:20:00 10:20:[address] [facility] 2019-04-17 2019-04-17 [facility] [id number] Common 20:26:00 20:26:[address] [facility] 2019-04-16 2019-04-16 [facility] [id number] Common 15:58:00 15:58:[address] [facility] 2019-03-03 2019-03-03 [facility] [id number] Common 13:58:00 13:58:[address] [facility] 2019-01-17 2019-01-17 [facility] [id number] Common 15:47:00 15:47:[address] [facility] 2019-01-17 2019-01-17 [facility] [id number] Common 11:15:00 11:15:[address] [facility] 2019-01-10 2019-01-10 [facility] [id number] Common 01:41:00 01:41:[address] [facility] 2019-01-08 2019-01-08 [facility] [id number] Common 10:30:00 10:30:[address] [facility] 2018-12-26 2018-12-26 [facility] [id number] Common 14:36:00 14:36:[address] [facility] 2018-12-25 2018-12-25 [facility] [id number] Common 11:15:00 11:15:[address] [facility] 2018-11-12 2018-11-12 [facility] [id number] Common 09:15:00 09:15:00 [place] [address] [facility] 2018-10-09 2018-10-09 [facility] [id number] Common 08:00:00 08:00:00 [place] [address] [facility] 2018-07-30 2018-07-30 [facility] [id number] Common 15:53:00 15:53:00 [place] [address] [facility] 2018-07-29 2018-07-29 [facility] [id number] Common 09:10:00 09:10:00 [place] [address] [facility] 2018-05-28 2018-05-28 [facility] [id number] Common 11:00:00 11:00:00 [place] [address] [facility] 2018-04-10 2018-04-10 [facility] [id number] Common 08:24:00 08:24:00 [place] [address] [facility] 2018-04-02 2018-04-02 [facility] [id number] Common 09:00:00 09:00:00 [place] [address] [facility] 2018-04-01 2018-04-01 [facility] [id number] Common 14:33:00 14:33:00 [place] [address] [facility] 2018-03-21 2018-03-21 [facility] [id number] Common 08:55:00 08:55:00 [place] [address] [facility] 2018-03-19 2018-03-19 [facility] [id number] Common 09:30:00 09:30:00 [place] [address] [facility] Results Test Description Test Test Results Result Source Time Comments Comments US PELVIS 2021-04-21. ?Simple cyst in Unive rsity of COMPLETE WITH 21 the left ovary Osvaldo Chavez edical TRANSVAGINAL 23:04:56 measuring up to 3.6 Bra nch cm, requires annualultrasound follow-up. 2. ?Uterine fibroid measuring up to 2.1 cm. Other smaller multiple fibroidsare suspected. 3. ?Minimal nonspecific free fluid is seen in the pelvis. Preliminary Report Dictated by Resident: Wei Hall ?MD. [place], have reviewed this study and agree with theabove report.EXAM: US PELVIS COMPLETE WITH TRANSVAGINAL HISTORY: 60 years-old Female; hx of ovarian cyst . . TECHNIQUE: Transabdominal and transvaginal ultrasound imaging and colorDoppler evaluation of the pelvis was performed. Machine Bookkeeper images wereobtained for the record. COMPARISON: None FINDINGS: STATEMENT: Limited exam due to bowel gas and body habitus. Uterus: The uterus is anteverted and normal in size and measures 7.1 x 3.5 x 4.6cm. The myometrium shows round heterogenous texture at the anterior bodyarea, measuring 2.1 x 2.1 x 1.9 cm with internal vascularity likelyrepresenting fibroid. No focal lesion is detected. The endometrium isnormal in appearance and the thickness measures 0.4 cm. The cervix showsanechoic focus likely representing fluid versus nabothian cyst. Right Adnexa:Ovary: The right ovary measures 2.5 x 1.8 x 1.5 cm, with a volume of 3.4ml. The right ovary is unremarkable. Left Adnexa:Ovary: The left ovary measures 2.5 x 2.3 x 2.3 cm, with a volume of 6.7 ml.There is a round anechoic cyst with posterior acoustic enhancement,measuring 3.6 x 2.1 x 2.6 cm appears to be anterior to the left ovary withno internal vascularity.Cul-de-sac : No free fluid is present. [facility], Radiant Results Inft User - 05/11/2021 6:06 PM CDT EXAM: US PELVIS COMPLETE WITH TRANSVAGINALHISTORY: 60 years-old Female; hx of ovarian cyst . .TECHNIQUE: Transabdominal and transvaginal ultrasound imaging and colorDoppler evaluation of the pelvis was performed. Machine Bookkeeper images wereobtained for the record. COMPARISON: NoneFINDINGS:STATEMENT : Limited exam due to bowel gas and body habitus.Uterus: The uterus is anteverted and normal in size and measures 7.1 x 3.5 x 4.6cm. The myometrium shows round heterogenous texture at the anterior bodyarea, measuring 2.1 x 2.1 x 1.9 cm with internal vascularity likelyrepresenting fibroid. No focal lesion is detected. The endometrium isnormal in appearance and the thickness measures 0.4 cm. The cervix showsanechoic focus likely representing fluid versus nabothian cyst.Right Adnexa:Ovary: The right ovary measures 2.5 x 1.8 x 1.5 cm, with a volume of 3.4ml. The right ovary is unremarkable.Left Adnexa:Ovary: The left ovary measures 2.5 x 2.3 x 2.3 cm, with a volume of 6.7 ml.There is a round anechoic cyst with posterior acoustic enhancement,measuring 3.6 x 2.1 x 2.6 cm appears to be anterior to the left ovary withno internal vascularity.Cul-de-sac : No free fluid is present.IMPRESSION1. Simple cyst in the left ovary measuring up to 3.6 cm, requires annualultrasound follow-up.2. Uterine fibroid measuring up to 2.1 cm. Other smaller multiple fibroidsare suspected.3. Minimal nonspecific free fluid is seen in the pelvis.Preliminary Report Dictated by Resident: Wei Quezada MD., have reviewed this study and agree with theabove report.
[2022-03-22 13:47] LABS: Absolute Lymphocytes (CBC) 2.6 K/uL (0.7-4.9); Hematocrit 36.5 % (36.0-45.0); Lymphocytes % 23.9 % (15.3-44.8); RBC Red Blood Cell Count 4.04 M/uL (3.86-4.86)
[2022-03-22 13:53] LABS: Protime INR 1.09
--- NOTE | 2022-03-22 13:56 | RAD REPORT ---
EXAM DESCRIPTION: RAD - Chest Single View - 03/22/2022 1:44 pm CLINICAL HISTORY: CHEST PAIN COMPARISON: Chest Single View dated 09/24/2020; Chest Pa And Lat (2 Views) dated 09/19/2018; Chest Pa And Lat (2 Views) dated 01/25/2018; Chest Single View dated 11/26/2017 FINDINGS: Lines: None. Lungs: No evidence of edema or pneumonia. Pleural: No significant pleural effusions or pneumothorax. Cardiac: The heart size is within normal limits. Bones: No acute fractures. Other: IMPRESSION: No acute cardiopulmonary disease.
[2022-03-22 14:08] LABS: Albumin 3.7 g/dL (3.4-5.0); Bilirubin Direct 0.2 mg/dL (0-0.2); Bilirubin Total 0.6 mg/dL (0.2-1.0); Potassium 4.3 mmol/L (3.5-5.1); Protein, Total 7.8 g/dL (6.4-8.2); Troponin High Sensitivity 11.8 pg/mL (<58.9)
[2022-03-22] MEDS ORDERED: CYCLOBENZAPRINE 10 MG TAB ONE (15:25)
[2022-03-22] MEDS ORDERED: NA CHLORIDE 0.9% 500 ML ONE (15:25)
--- NOTE | 2022-03-22 16:56 | ER ---
Nurse's Notes [facility] Name: Sergio Otero Age: 61 yrs Sex: Female : 1960 Arrival Date: 03/22/2022 Time: 11:38 Bed 7 Private MD: Sudha Traore Diagnosis: Chest pain, unspecified Presentation: 03/22 11:44 Chief complaint: Patient states: Woke up this morning with sharp, substernal chest ss discomfort. PT reports that she had an outpatient MRI, and figured it would go away, but it is still persistant. Coronavirus screen: Client denies travel out of the [place] in the last 14 days. Ebola Screen: Patient denies exposure to infectious person. Patient denies travel to an Ebola-affected area in the 21 days before illness onset. Initial Sepsis Screen: Does the patient meet any 2 criteria? No. Patient's initial sepsis screen is negative. Does the patient have a suspected source of infection? No. Patient's initial sepsis screen is negative. Risk Assessment: Do you want to hurt yourself or someone else? Patient reports no desire to harm self or others. Onset of symptoms was March 22, 2022. 11:44 Method Of Arrival: Ambulatory ss 11:44 Acuity: SIMONE 3 ss Historical: - Allergies: 11:45 No Known Allergies; ss - PMHx: 11:45 Gout; Hyperlipidemia; Hypertension; kidney function is low; Sickle Cell Trait; ss - Immunization history:: Client reports receiving the 2nd dose of the Covid vaccine. - Social history:: Smoking status: Patient denies any tobacco usage or history of. Screenin:51 Abuse screen: Denies threats or abuse. Denies injuries from another. Nutritional jl7 screening: No deficits noted. Tuberculosis screening: No symptoms or risk factors identified. Fall Risk IV access (20 points). Total Salvador Fall Scale indicates No Risk (0-24 pts). Assessment: 13:20 General: Appears in no apparent distress. uncomfortable, Behavior is calm, cooperative, jl7 appropriate for age. Pain: Complains of pain in mid-sternal area Pain does not radiate. Pain currently is 8 out of 10 on a pain scale. at worst was 10 out of 10 on a pain scale. Quality of pain is described as sharp, Pain began 1 day ago. Is intermittent. Neuro: Level of Consciousness is awake, alert, obeys commands, Oriented to person, place, time, situation. Cardiovascular: Patient's skin is warm and dry. Rhythm is regular. Respiratory: Airway is patent Respiratory effort is even, unlabored, Respiratory pattern is regular, symmetrical. Derm: Skin is pink, warm \T\ dry. 14:30 Reassessment: Patient appears in no apparent distress at this time. No changes from jl7 previously documented assessment. Patient and/or family updated on plan of care and expected duration. Pain level reassessed. Patient is alert, oriented x 3, equal unlabored respirations, skin warm/dry/pink. 15:30 Reassessment: Patient appears in no apparent distress at this time. No changes from jl7 previously documented assessment. Patient and/or family updated on plan of care and expected duration. Pain level reassessed. Patient is alert, oriented x 3, equal unlabored respirations, skin warm/dry/pink. 16:25 Reassessment: Patient appears in no apparent distress at this time. Patient and/or jl7 family updated on plan of care and expected duration. Pain level reassessed. Patient is alert, oriented x 3, equal unlabored respirations, skin warm/dry/pink. Patient denies pain at this time. Patient states feeling better. Patient states symptoms have improved. Vital Signs: 11:44 BP 172 / 101; Pulse 89; Resp 16; Temp 98.1(TE); Pulse Ox 100% on R/A; Weight 108.86 kg; ss Height 5 ft. 6 in. (167.64 cm); Pain 8/10; 13:51 BP 157 / 85; Pulse 77; Resp 15; Pulse Ox 100% ; jl7 16:25 BP 174 / 95; Pulse 72; Resp 15; Pulse Ox 100% ; jl7 11:44 Body Mass Index 38.74 (108.86 kg, 167.64 cm) ED Course: 11:38 Patient arrived in ED. as 11:39 Sudha Traore MD is Private Physician. as 11:45 Triage completed. ss 11:45 Arm band placed on left wrist. ss 11:52 Arsen Mathis NP is PHCP. pm1 11:52 Bonilla Alcantara MD is Attending Physician. pm1 12:59 Mclain, Jahala, RN is Primary Nurse. jl7 13:20 Initial lab(s) drawn, by me, sent to lab. Inserted saline lock: 20 gauge in right jl7 forearm, using aseptic technique. Blood collected. 13:46 XRAY Chest (1 view) In Process Unspecified. EDMS 13:51 Patient has correct armband on for positive identification. Placed in gown. Bed in low jl7 position. Call light in reach. Side rails up X 1. Client placed on continuous cardiac and pulse oximetry monitoring. NIBP monitoring applied. Warm blanket given. 13:52 Patient maintains SpO2 saturation greater than 95% on room air. jl7 17:19 No provider procedures requiring assistance completed. IV discontinued, intact, jl7 bleeding controlled, No redness/swelling at site. Pressure dressing applied. Administered Medications: 15:18 CANCELLED (Physician Discretion): NS 0.9% 1000 ml IV at 1000 ml once pm1 15:32 Drug: NS 0.9% 500 ml Route: IV; Rate: bolus; Site: right forearm; jl7 16:15 Follow up: Response: No adverse reaction; IV Status: Completed infusion; IV Intake: jl7 500ml 15:32 Drug: Flexeril (cyclobenzaprine) 10 mg Route: PO; jl7 16:15 Follow up: Response: No adverse reaction; Pain is decreased jl7 Medication: 13:51 VIS not applicable for this client. jl7 Intake: 16:15 IV: 500ml; Total: 500ml. jl7 Outcome: 16:55 Discharge ordered by MD. pm1 17:19 Discharged to home via wheelchair, with family. jl7 17:19 Condition: stable 17:19 Discharge instructions given to patient, Instructed on discharge instructions, follow up and referral plans. Demonstrated understanding of instructions, follow-up care. 17:32 Patient left the ED. jl7 Signatures: Dispatcher [employer] Maria G Tom Shelby, RN RN ss Marinas, Patrick, NP [facility] CLINICIAN pm1 Shell Mclain RN RN jl7
--- NOTE | 2022-03-22 16:56 | EDPHYS ---
Physician Documentation [facility] Name: Sergio Otero Age: 61 yrs Sex: Female : 1960 Arrival Date: 03/22/2022 Time: 11:38 Bed 7 Private MD: Sudha Traore ED Physician Bonilla Alcantara HPI: 03/22 13:00 This 61 yrs old Black Female presents to ER via Ambulatory with complaints of Chest pm1 Pain. 13:00 The patient or guardian reports chest pain that is located primarily in the anterior pm1 aspect of left upper chest. Onset: this morning. The pain does not radiate. Associated signs and symptoms: The patient has no apparent associated signs or symptoms, Pertinent negatives: abdominal pain, cough, diaphoresis, dizziness, headache, nausea, shortness of breath, vomiting. The chest pain is described as sharp. Duration: The patient or guardian reports a single episode, that is still ongoing. Modifying factors: the symptoms are aggravated by deep breath, palpation of area. Severity of pain: in the emergency department the pain is unchanged. The patient has not experienced similar symptoms in the past. The patient has not recently seen a physician. Historical: - Allergies: 11:45 No Known Allergies; ss - PMHx: 11:45 Gout; Hyperlipidemia; Hypertension; kidney function is low; Sickle Cell Trait; ss - Immunization history:: Client reports receiving the 2nd dose of the Covid vaccine. - Social history:: Smoking status: Patient denies any tobacco usage or history of. ROS: 13:00 Constitutional: Negative for fever, chills, and weight loss. pm1 13:00 Respiratory: Negative for shortness of breath, cough, wheezing, and pleuritic chest pain, Abdomen/GI: Negative for abdominal pain, nausea, vomiting, diarrhea, and constipation, Back: Negative for injury and pain, MS/Extremity: Negative for injury and deformity, Skin: Negative for injury, rash, and discoloration, Neuro: Negative for headache, weakness, numbness, tingling, and seizure. 13:00 Cardiovascular: Positive for chest pain, Negative for edema, palpitations. 13:00 All other systems are negative. Exam: 13:00 Constitutional: This is a well developed, well nourished patient who is awake, alert, pm1 and in no acute distress. Head/Face: Normocephalic, atraumatic. 13:00 Back: No spinal tenderness. No costovertebral tenderness. Full range of motion. Skin: Warm, dry with normal turgor. Normal color with no rashes, no lesions, and no evidence of cellulitis. MS/ Extremity: Pulses equal, no cyanosis. Neurovascular intact. Full, normal range of motion. 13:00 Eyes: Exam is negative for acute changes, Extraocular movements: no acute changes. 13:00 ENT: Exam is negative for acute changes, Mouth: no acute changes, Lips: normal, moist, Oral mucosa: normal, pink and intact, moist. 13:00 Chest/axilla: Inspection: normal, Palpation: tenderness, of the anterior aspect of left upper chest focal point, that totally reproduces the patient's complaints. 13:00 Cardiovascular: Exam negative for acute changes, Rate: normal, Rhythm: regular, Pulses: no pulse deficits are appreciated. 13:00 Respiratory: Exam negative for acute changes, respiratory distress, shortness of breath, Breath sounds: are clear throughout. 13:00 Abdomen/GI: Exam negative for acute changes, Inspection: abdomen appears normal, Palpation: abdomen is soft and non-tender, in all quadrants. 13:00 Neuro: Exam negative for acute changes, Orientation: is normal, Mentation: is normal, Motor: is normal, moves all fours. Vital Signs: 11:44 BP 172 / 101; Pulse 89; Resp 16; Temp 98.1(TE); Pulse Ox 100% on R/A; Weight 108.86 kg; ss Height 5 ft. 6 in. (167.64 cm); Pain 8/10; 13:51 BP 157 / 85; Pulse 77; Resp 15; Pulse Ox 100% ; jl7 16:25 BP 174 / 95; Pulse 72; Resp 15; Pulse Ox 100% ; jl7 11:44 Body Mass Index 38.74 (108.86 kg, 167.64 cm) ss MDM: 12:57 Patient medically screened. pm1 16:55 Data reviewed: vital signs. Data interpreted: Pulse oximetry: on room air is 100 %. pm1 Interpretation: normal. Counseling: I had a detailed discussion with the patient and/or guardian regarding: the historical points, exam findings, and any diagnostic results supporting the discharge/admit diagnosis, lab results, radiology results, the need for outpatient follow up, to return to the emergency department if symptoms worsen or persist or if there are any questions or concerns that arise at home. 03/22 12:59 Order name: Basic Metabolic Panel; Complete Time: 14:21 pm1 03/22 12:59 Order name: CBC with Diff; Complete Time: 13:54 pm1 03/22 12:59 Order name: LFT's; Complete Time: 14:21 pm1 03/22 12:59 Order name: Magnesium; Complete Time: 14:21 pm1 03/22 12:59 Order name: NT PRO-BNP; Complete Time: 14:21 pm1 03/22 12:59 Order name: PT-INR; Complete Time: 13:54 pm1 03/22 12:59 Order name: Troponin HS; Complete Time: 14:21 pm1 03/22 12:59 Order name: XRAY Chest (1 view); Complete Time: 14:01 pm1 03/22 12:59 Order name: EKG; Complete Time: 13:00 pm1 03/22 12:59 Order name: Cardiac monitoring; Complete Time: 13:46 pm1 03/22 16:04 Order name: Troponin High Sensitivity; Complete Time: 16:54 pm1 03/22 12:59 Order name: EKG - Nurse/Tech; Complete Time: 13:00 pm1 03/22 12:59 Order name: IV Saline Lock; Complete Time: 13:46 pm1 03/22 12:59 Order name: Labs collected and sent; Complete Time: 13:46 pm1 03/22 12:59 Order name: O2 Per Protocol; Complete Time: 13:46 pm1 03/22 12:59 Order name: O2 Sat Monitoring; Complete Time: 13:46 pm1 Administered Medications: 15:18 CANCELLED (Physician Discretion): NS 0.9% 1000 ml IV at 1000 ml once pm1 15:32 Drug: NS 0.9% 500 ml Route: IV; Rate: bolus; Site: right forearm; jl7 16:15 Follow up: Response: No adverse reaction; IV Status: Completed infusion; IV Intake: jl7 500ml 15:32 Drug: Flexeril (cyclobenzaprine) 10 mg Route: PO; jl7 16:15 Follow up: Response: No adverse reaction; Pain is decreased jl7 Disposition: 18:45 Co-signature as Attending Physician, Bonilla Alcantara MD I agree with the assessment and kdr plan of care. Disposition Summary: 03/22/22 16:55 Discharge Ordered Location: Home pm1 Problem: new pm1 Symptoms: have improved pm1 Condition: Stable pm1 Diagnosis - Chest pain, unspecified pm1 Followup: pm1 - With: Emergency Department - When: As needed - Reason: Worsening of condition Followup: pm1 - With: Private Physician - When: 2 - 3 days - Reason: Recheck today's complaints, Continuance of care, Re-evaluation by your physician Discharge Instructions: - Discharge Summary Sheet pm1 - Nonspecific Chest Pain, Adult pm1 Forms: - Medication Reconciliation Form pm1 - Thank You Letter pm1 - Antibiotic Education pm1 - Prescription Opioid Use pm1 Signatures: Dispatcher [employer] EDMS Bonilla Alcantaar MD MD [facility] Stacey Harden RN RN ss Arsen Mathis, [employer] pm1 Shell Mclain RN RN jl7 Corrections: (The following items were deleted from the chart) 15:18 15:14 NS 0.9% 1000 ml IV at 1000 ml once ordered. pm1 pm1
[2022-03-22 17:50] VITALS: TEMP 98.1; O2SAT 100
[2022-03-22 17:53] VITALS: BP 174/95
--- NOTE | 2022-03-23 13:47 | EKG ---
Test Date: 2022-03-22 Test Time: 11:49:47 Market President: ENRIQUE MEASUREMENT RESULTS: Intervals: Rate: 77 NM: 138 QRSD: 74 QT: 372 QTc: 420 [place]: P: 12 NM: 138 QRS: 15 T: -6 INTERPRETIVE STATEMENTS: Normal sinus rhythm Minimal voltage criteria for LVH, may be normal variant Nonspecific T wave abnormality Abnormal ECG Compared to ECG 09/24/2020 09:18:46 Left ventricular hypertrophy now present T-wave abnormality still present Electronically Signed On 03-23-22 13:45:56 CDT by Giovanni Moulton
== END 2022-03-22 17:32 | disposition home or self-care (01) ==
LOC: ER 11:36
DX: R07.9 Chest pain, unspecified (principal); I10 Essential (primary) hypertension; E78.5 Hyperlipidemia, unspecified
CPT/HCPCS: 93005; 85025; 80048; 36415; 83735; 85610; 80076; 84484 ×2; 83880; 71045; 96360; 99284; J7040

== ENCOUNTER 2022-10-26 19:44 | Emergency (ER) | payer MEDICARE ==
--- OUTSIDE RECORDS SUMMARY | 2022-10-26 19:52 | XMS REPORT | Continuity of Care Document ---
:[address] [facility] [place], [place] Address [address] [place] [address] Care Team Providers Name Role Phone TRACI BELL Primary Care Physician Unavailable Traci Bell Attending Clinician Unavailable Azar Watson Attending Clinician Unavailable Marissa Rodriguez Attending Clinician Unavailable SHILPA BOURGEOIS Attending Clinician Unavailable Lizet Attending Clinician Unavailable Shilpa Bourgeois PA-C Attending Clinician Doctor Unassigned, Bland Attending Clinician Unavailable MIREILLE WILLIS Attending Clinician Unavailable Mireille Willis MD Attending Clinician Lars Sheppard MD Attending Clinician Lizet Admitting Clinician Unavailable Payers Payer Name Policy Type Policy Number Effective Date Expiration Date Ramírez mello [employer] [id number] 2020spring 00:00:[id number] 2021 (MEDICARE 00:00:00 REPLACEMENT HMO) [employer] [id number] Common g Medicare [facility] Replace [facility] Cign[employer]-HealthSprin C1 [id number] Common g Medicare [facility] Replace [facility] [employer] C1 [id number] Common g Medicare [facility] Replace [facility] [employer] C1 [id number] Common g Medicare [facility] Replace [facility] [employer] C1 [id number] Common g Medicare [facility] Replace [facility] CIGNA MEDICARE - [id number] RNPO PCP DEVOTED HEALTH [id number] Problems Condition Condition Condition Status Onset Resolution Last Treating Co mments Source Name Details Category Date Date Treatment Clinician Date Swelling Swelling Disease Active Jemez Pueblolo r of lower of lower 04-21 Colleg e extremity extremity 00:00: of 00 Medicin e Increased Increased Disease Active [facility] BMI (body BMI (body 04-21 Melonie ege mass mass 00:00: of index) index) 00 Medicin e Venous Venous Disease Active [facility] insufficie insufficie 04-21 Co llege ncy ncy 00:00: of 00 Medicin e Essential Essential Disease Active Uni vers hypertensi hypertensi 6-18 it y [place] Hyperlipid Hyperlipid Disease Active U nivers emia emia 6-18 ity of 00:00: [place] 00 Medical Branch Venous Venous Disease Active Overview: Univer s (periphera (periphera 7-22 Formattin ity of l) l) 00:00: g of this [place] insufficie insufficie 00 note Me dical ncy ncy might be Branch different from the original. ICD10 Diagnosis Term Underwear Cutter Utility Other Other Disease Active Univers specified specified 2-20 ity of disorders disorders [place] of adrenal of adrenal 00 Me dical glands glands Branch [id number] Family Problem Common history of Spirit heart - [facility]I disease [facility] Mixed Hyperlipid Problem Commo n hyperlipid emia, Spirit emia mixed - [facility] Polyp Polyp of Problem Common colon colon, Spirit unspecifie - CHI d part of [facility] unspecifie Medica l d type Center [id number] Generalize Problem Com mon d weakness [facility] [id number] Polyarthra Problem Com mon lgia [facility] Sickle Sickle-mateo Problem Commo n cell trait l trait Spiri t - [facility] [id number] Hyperurice Problem Com mon davy [facility] Pulmonary Pulmonary Problem Com mon hypertensi hypertensi Sp jenni on on - [facility] [id number] Diverticul Problem Co mmon osis large Spirit intestine - 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 - [facility] [id number] Left foot Problem Co mmon [id number] pain [facility] Iron Iron Problem Common deficiency deficiency Sp jenni anemia due anemia due - CHI to chronic to chronic St blood loss blood loss [facility] [id number] Diverticul Problem Co mmon osis [facility] Heel pain Heel pain Problem Com mon [facility] Glaucoma Glaucoma Problem Commo n [facility] [id number] Pain in Problem Commo n left leg [facility] [id number] Pain in Problem Comm on [id number] right leg [facility] [id number] Tiredness Problem Com mon [facility] [id number] Legal Problem Common blindness [facility] [id number] Acute Problem Common midline [facility] low back - [facility] pain with left-sided [facility] [id number] Acute gout Problem Co mmon of right [facility] foot, - CHI unspecifie [facility] Gout Gout Problem Common [facility] [id number] Urinary Problem Commo n frequency [facility] [id number] Depression Problem Co mmon with [facility] anxiety [facility] [id number] Macular Problem Commo n degenerati Spirit on of both [facility], [facility] Stage 3a Problem Common kidney chronic [facility] disease kidney - [facility] stage 3A disease [facility] [id number] Left Problem Commo n [id number] adrenal Spirit mass [facility] [id number] History of Problem Co mmon colon Spirit polyps [facility] [id number] Gastroesop Problem Co mmon hageal Spirit reflux - CHI disease, [facility] unspecifie [facility] whether Medical esophagiti Center s present [id number] Other Problem Common chronic Spirit pain - [facility] [id number] Injury of Problem Com mon left Spirit acromiocla - CHI vicular St joint, [facility] subsequent Medica l encounter Center [id number] Pain, Problem Commo n [id number] joint, Spirit shoulder, - [facility]I right [facility] Stage 3b Stage 3b Problem Commo n chronic chronic Spirit kidney kidney - CHI disease disease St (CKD) (CKD) [facility] 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 - CHI zackary zackary [facility] 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 [facility] [id number] Body mass Problem Com mon index Spirit (BMI) of - CHI 40.0-44.9 St in adult [facility] Chronic Chronic Problem Common renal kidney Spirit disease disease, - CHI unspecifie St d CKD [facility] Essential Essential Problem Com mon hypertensi hypertensi Sp jenni on on - [facility] [id number] Morbid Problem Common obesity [facility] [id number] Iron Problem Common deficiency Spirit anemia, - CHI unspecifie St d iron [facility] deficiency Medica l anemia Center type [id number] Rash and Problem Comm on nonspecifi Spirit c skin - CHI eruption [facility] [id number] Varicose Problem Commo n veins of Spirit both lower - [facility]ie [facility] un[facility]ie Medica l d whether Center complicate d Obesity Obesity Problem Common Spirit - [facility] Allergies, Adverse Reactions, Alerts Allergy Allergy Status Severity Reaction(s) Onset Inactive Treating Comm ents Source Name Type Date Date Clinician NO KNOWN Drug Active Univers ALLERGIE Class ity of S [place] [facility] Social History Social Habit Start Date Stop Date Quantity Comments Source History of Common Spirit - Tobacco Use [facility] Sex Assigned At Common Sp jenni - [facility] History [facility] ge of Alcohol Std Medicine Drinks History [facility] ge of Alcohol Binge Medicine Exposure to Not sure University of SARS-CoV-2 [facility] (event) Branch Alcohol intake 2021-02-24 2021-02-24 Lifetime [facility] Col lege of 00:00:00 00:00:00 non-drinker Medicine (finding) Tobacco use and 2021-02-24 2021-02-24 Never used [facility] Co llege of exposure 00:00:00 00:00:00 Medicine History SDOH 2020-04-21 2020-04-21 1 [facility] Rashard ge of Alcohol Frequency 00:00:00 00:00:00 Medicin e Smoking Status Start Date Stop Date Source Never Smoker Common [facility] Medications Ordered Filled Start Stop Current Ordering Indication Dosage Frequency Signature Comments Components Source Medication Medication Date Date Medication? Clinician (SIG) Name Name Lidocaine Lidocaine 2021-10 No 20mg Com 10-23 Spirit 00:00: - [facility] Kenalog Kenalog 2021-10 No 40mg Common (Triamcinol (Triamcinol 1-02 S pirit one) one) 00:00: - [facility] Lidocaine Lidocaine 2021-10 No 20mg Com 10-23 Spirit 00:00: - [facility] Kenalog Kenalog 2021-10 No 40mg Common (Triamcinol (Triamcinol 1-02 S pirit one) one) 00:00: - [facility] Nystatin Nystatin 2021- No 1{appli BID Nystatin [id number] 079645 06-20 cation_ 539294 UNIT/GM UNIT/GM 00:00: 00:00 to_affe UNIT/GM 00 :00 cted_ar ea} Nystatin Nystatin 2021- No 1{appli BID Nystatin 984233 119799 06-20 cation_ [id number] UNIT/GM UNIT/GM 00:00: 00:00 to_affe UNIT/GM 00 :00 cted_ar ea} Nystatin Nystatin 2021- No 1{appli BID Nystatin [id number] [id number] 06-20 cation_ [id number] UNIT/GM UNIT/GM 00:00: 00:00 to_affe UNIT/GM 00 :00 cted_ar ea} Nystatin Nystatin 2021- No 1{appli BID Nystatin 390202 018111 03-16 cation_ [id number] UNIT/GM UNIT/GM 00:00: 00:00 to_affe UNIT/GM 00 :00 cted_ar ea} Nystatin Nystatin 2021-0 2021- No 1{appli BID Nystatin 254062 758650 03-16 cation_ 197497 UNIT/GM UNIT/GM 00:00: 00:00 to_affe UNIT/GM 00 :00 cted_ar ea} Nystatin Nystatin 2021-0 2021- No 1{appli BID Nystatin 194656 246144 03-16 cation_ 327346 UNIT/GM UNIT/GM 00:00: 00:00 to_affe UNIT/GM 00 :00 cted_ar ea} Valium 2 MG Valium 2 MG 2021-0 No QD Valium 2 5-12 MG 00:00: 00 Valium 2 MG Valium 2 MG 2021-0 No QD Valium 2 5-12 MG 00:00: 00 Valium 2 MG Valium 2 MG 2021-0 No QD Valium 2 5-12 MG 00:00: 00 Valium 2 MG Valium 2 MG 2021-0 No QD Valium 2 5-12 MG 00:00: 00 Valium 2 MG Valium 2 MG 2-0 No QD Valium 2 5-12 MG 00:00: 00 Valium 2 MG Valium 2 MG 2-0 No QD Valium 2 5-12 MG 00:00: 00 Valium 2 MG Valium 2 MG 2-0 No QD Valium 2 5-12 MG 00:00: 00 Valium 2 MG Valium 2 MG 2-0 No QD Valium 2 5-12 MG 00:00: 00 Valium 2 MG Valium 2 MG 2-0 No QD Valium 2 5-12 MG 00:00: 00 Valium 2 MG Valium 2 MG 2022-0 No QD Valium 2 5-12 MG 00:00: 00 Valium 2 MG Valium 2 MG 2022-0 No QD Valium 2 5-12 MG 00:00: 00 Valium 2 MG Valium 2 MG 2022-0 No QD Valium 2 5-12 MG 00:00: 00 Valium 2 MG Valium 2 MG 2-0 No QD Valium 2 5-12 MG 00:00: 00 Valium 2 MG Valium 2 MG 2-0 No QD Valium 2 5-12 MG 00:00: 00 Valium 2 MG Valium 2 MG 2-0 No QD Valium 2 5-12 MG 00:00: 00 Allopurinol Allopurinol 2-0 2022- No 1{table QD Allopurino 100 MG 100 MG 5-12 -08 t} l 100 MG 00:00: 00:00 00 :00 Allopurinol Allopurinol 2-0 2022- No 1{table QD Allopurino 100 MG 100 MG -12 -08 t} l 100 MG 00:00: 00:00 00 :00 Allopurinol Allopurinol 2-0 2022- No 1{table QD Allopurino 100 MG 100 MG -12 -08 t} l 100 MG 00:00: 00:00 00 :00 Allopurinol Allopurinol 2-0 2022- No 1{table QD Allopurino 100 MG 100 MG -10 01-08 t} l 100 MG 00:00: 00:00 00 :00 Allopurinol Allopurinol 2-0 2022- No 1{table QD Allopurino 100 MG 100 MG -10 01-08 t} l 100 MG 00:00: 00:00 00 :00 Allopurinol Allopurinol 2-0 2022- No 1{table QD Allopurino 100 MG 100 MG -12 -08 t} l 100 MG 00:00: 00:00 00 :00 Allopurinol Allopurinol 2-0 2022- No 1{table QD Allopurino 100 MG 100 MG 5-12 -08 t} l 100 MG 00:00: 00:00 00 :00 Allopurinol Allopurinol 2-0 2022- No 1{table QD Allopurino 100 MG 100 MG 5-12 -08 t} l 100 MG 00:00: 00:00 00 :00 Allopurinol Allopurinol 2-0 2022- No 1{table QD Allopurino 100 MG 100 MG 5-12 -08 t} l 100 MG 00:00: 00:00 00 :00 Allopurinol Allopurinol 2-0 2022- No 1{table QD Allopurino 100 MG 100 MG 5-12 -08 t} l 100 MG 00:00: 00:00 00 :00 Allopurinol Allopurinol 2021-0 2021- No 1{table QD Allopurino 100 MG 100 MG 03-0208 t} l 100 MG 00:00: 00:00 00 :00 Allopurinol Allopurinol 2021-0 2021- No 1{table QD Allopurino 100 MG 100 MG 5-08 t} l 100 MG 00:00: 00:00 00 :00 Allopurinol Allopurinol 2021-0 2021- No 1{table QD Allopurino 100 MG 100 MG 03-02 t} l 100 MG 00:00: 00:00 00 :00 Albuterol Albuterol 0 No 2{puffs Albuterol Sulfate HFA Sulfate HFA 2-25 } Sulfate 108 (90 108 (90 00:00: HFA 108 Base) Base) 00 (90 Base) MCG/ACT MCG/ACT MCG/ACT Albuterol Albuterol No 2{puffs Albuterol Sulfate HFA Sulfate HFA 2-25 } Sulfate 108 (90 108 (90 00:00: HFA 108 Base) Base) 00 (90 Base) MCG/ACT MCG/ACT MCG/ACT Albuterol Albuterol No 2{puffs Albuterol Sulfate HFA Sulfate HFA 2-25 } Sulfate 108 (90 108 (90 00:00: HFA 108 Base) Base) 00 (90 Base) MCG/ACT MCG/ACT MCG/ACT Albuterol Albuterol 2021- No 2{puffs Albuterol Sulfate HFA Sulfate HFA 2-25 } Sulfate 108 (90 108 (90 00:00: HFA 108 Base) Base) 00 (90 Base) MCG/ACT MCG/ACT MCG/ACT Albuterol Albuterol 2021- No 2{puffs Albuterol Sulfate HFA Sulfate HFA 2-25 } Sulfate 108 (90 108 (90 00:00: HFA 108 Base) Base) 00 (90 Base) MCG/ACT MCG/ACT MCG/ACT Albuterol Albuterol 2021- No 2{puffs Albuterol Sulfate HFA Sulfate HFA 2-25 } Sulfate 108 (90 108 (90 00:00: HFA 108 Base) Base) 00 (90 Base) MCG/ACT MCG/ACT MCG/ACT Albuterol Albuterol 0 No 2{puffs Albuterol Sulfate HFA Sulfate HFA 2-25 } Sulfate 108 (90 108 (90 00:00: HFA 108 Base) Base) 00 (90 Base) MCG/ACT MCG/ACT MCG/ACT Albuterol Albuterol 2021-0 No 2{puffs Albuterol Sulfate HFA Sulfate HFA 2-25 } Sulfate 108 (90 108 (90 00:00: HFA 108 Base) Base) 00 (90 Base) MCG/ACT MCG/ACT MCG/ACT Albuterol Albuterol 2021-0 No 2{puffs Albuterol Sulfate HFA Sulfate HFA 2-25 } Sulfate 108 (90 108 (90 00:00: HFA 108 Base) Base) 00 (90 Base) MCG/ACT MCG/ACT MCG/ACT Benzonatate Benzonatate 2021-2021- No 1{capsu TID Benzonatat 200 MG 200 MG 12-13- le_as_n e 200 MG 00:00: 00:00 eeded} 00 :00 Benzonatate Benzonatate 2021-0 2021- No 1{capsu TID Benzonatat 200 MG 200 MG 12-13- le_as_n e 200 MG 00:00: 00:00 eeded} 00 :00 Benzonatate Benzonatate 2021-0 2021- No 1{capsu TID Benzonatat 200 MG 200 MG 12-13- le_as_n e 200 MG 00:00: 00:00 eeded} 00 :00 predniSONE predniSONE 2021-0 2021- No QD predniSONE 10 MG 10 MG 12-13 10 MG 00:00: 00:00 00 :00 predniSONE predniSONE 2021-0 2- No QD predniSONE 10 MG 10 MG 12-13 10 MG 00:00: 00:00 00 :00 Azithromyci Azithromyci 2021-0 2021- No QD Azithromyc n 250 MG n 250 MG 12-13 in 250 MG 00:00: 00:00 00 :00 Azithromyci Azithromyci 2021-0 2- No QD Azithromyc n 250 MG n 250 MG 12-13 in 250 MG 00:00: 00:00 00 :00 Nystatin Nystatin 2020-10- No 1{appli BID Nystatin [id number] 460207 11-09 cation_ [id number] UNIT/GM UNIT/GM 00:00: 00:00 to_affe UNIT/GM 00 :00 cted_ar ea} Bactrim DS Bactrim DS 2020-10- No 1{table BID Bactrim DS 800-160 MG 800-160 MG 11-09 t} 800-160 MG 00:00: 00:00 00 :00 Triamcinolo Triamcinolo 2020-10 No 1{appli BID Triamcinol ne ne 0-28 cation} one Acetonide Acetonide 00:00: Acetonide 0.1 % 0.1 % 00 0.1 % Triamcinolo Triamcinolo 2020-10 No 1{appli BID Triamcinol ne ne 0-28 cation} one Acetonide Acetonide 00:00: Acetonide 0.1 % 0.1 % 00 0.1 % Triamcinolo Triamcinolo 2020-10 No 1{appli BID Triamcinol ne ne 0-28 cation} one Acetonide Acetonide 00:00: Acetonide 0.1 % 0.1 % 00 0.1 % Ketoconazol Ketoconazol 2020-10- No 1{appli QD Ketoconazo e 2 % e 2 % 0-28 11-04 cation} le 2 % 00:00: 00:00 00 :00 Ketoconazol Ketoconazol 2020-10 2021- No 1{appli QD Ketoconazo e 2 % e 2 % 0-28 11-04 cation} le 2 % 00:00: 00:00 00 :00 Ketoconazol Ketoconazol 2020-10 2021- No 1{appli QD Ketoconazo e 2 % e 2 % 0-28 11-04 cation} le 2 % 00:00: 00:00 00 :00 Fluconazole Fluconazole 2020-10- No 1{table Fluconazol 150 MG 150 MG 0-28 10-29 ts} e 150 MG 00:00: 00:00 00 :00 Fluconazole Fluconazole 2020-10- No 1{table Fluconazol 150 MG 150 MG 0-28 10-29 ts} e 150 MG 00:00: 00:00 00 :00 Fluconazole Fluconazole 2020-10 2021- No 1{table Fluconazol 150 MG 150 MG 0-08-19 ts} e 150 MG 00:00: 00:00 00 :00 Nystatin Nystatin 202- No 1{appli BID Nystatin 062041 161429 9-17 07-22 cation_ [id number] UNIT/GM UNIT/GM 00:00: 00:00 to_affe UNIT/GM 00 :00 cted_ar ea} Brinzolamid Yes [facility] e-Brimonidi 02-24 [place] ne 19:26: of (SIMBRINZA) 17 Medicin 1-0.2 % e ophthalmic suspension Cholecalcif Yes 1{capsu Take 1 Cap [facility] greg 06 le} by mouth. [place] (VITAMIN 19:26: of D3) 25 MCG 17 Medicin (1000 UT) e CAPS clobetasol Yes 1 [facility] (TEMOVATE) 02-24 applicatio Col lege 0.05 % 19:26: n to of cream 17 affected Medicin area e esomeprazol Yes 1 tab [facility] (NEXIUM) 02-24 [place] 40 MG 19:26: of capsule 17 Medicin e simvastatin Yes 1 tablet Ba ylor (ZOCOR) 20 02-24 in the [place] MG tablet 19:26: evening of 17 Medicin e ASPIRIN 81 Yes 81mg Take 81 mg B aylor OR 02-24 by mouth [place] 19:26: daily. of 17 Medicin e losartan Yes 25mg Take 25 mg Uni vers (COZAAR) 25 3-25 by mouth ity of mg tablet 13:56: daily. [place] [address] Medical Branch Cholecalcif Yes 1{capsu Take 1 Cap Univers greg, 3-25 le} by mouth ity of Vitamin D3, 13:56: [place]. [place] ([place]IT[place] 11 Medical D3) 1,000 Branch unit Cap aspirin Yes 81mg Take 81 mg Univ ers (ASPIRIN 3-25 by mouth ity of CHILDRENS) 13:56: daily. [address] 11 Medical chewable Branch tablet losartan 2021-0 Yes 25mg Take 25 mg Uni vers (COZAAR) 25 3-25 by mouth ity of mg tablet 13:56: daily. [place] [address] Medical Branch Cholecalcif 0 Yes 1{capsu Take 1 Cap Univers greg, 3-25 le} by mouth ity of Vitamin D3, 13:56: daily. [place] (VITAMIN 11 Medical D3) 1,000 Branch unit Cap aspirin 0 Yes 81mg Take 81 mg Univ ers (ASPIRIN 3-25 by mouth ity of CHILDRENS) 13:56: daily. [place] 81 mg 11 Medical chewable Branch tablet losartan 0 Yes 25mg Take 25 mg Uni vers (COZAAR) 25 3-25 by mouth ity of mg tablet 13:56: daily. [address] Branch Cholecalcif 0 Yes 1{capsu Take 1 Cap Univers greg, 3-25 le} by mouth ity of Vitamin D3, 13:56: daily. [place] (VITAMIN 11 Medical D3) 1,000 Branch unit Cap aspirin 0 Yes 81mg Take 81 mg Univ ers (ASPIRIN 3-25 by mouth ity of CHILDRENS) 13:56: daily. [place] 81 mg Medical chewable Branch tablet losartan 0 Yes 25mg Take 25 mg Uni vers (COZAAR) 25 3-25 by mouth ity of mg tablet 13:56: daily. [address] Cholecalcif 0 Yes 1{capsu Take 1 Cap Univers greg, 3-25 le} by mouth ity of Vitamin D3, 13:56: daily. [place] (VITAMIN 11 Medical D3) 1,000 Branch unit Cap aspirin 0 Yes 81mg Take 81 mg Univ ers (ASPIRIN 3-25 by mouth ity of CHILDRENS) 13:56: daily. [place] 81 mg Medical chewable Branch tablet losartan 0 Yes 25mg Take 25 mg Uni vers (COZAAR) 25 3-25 by mouth ity of mg tablet 13:56: daily. [address] Cholecalcif 0 Yes 1{capsu Take 1 Cap Univers greg, 3-25 le} by mouth ity of Vitamin D3, 13:56: daily. [place] (VITAMIN 11 Medical D3) 1,000 Branch unit Cap aspirin 2020-0 Yes 81mg Take 81 mg Univ ers (ASPIRIN 3-25 by mouth ity of CHILDRENS) 13:56: daily. [place] 81 mg 11 Medical chewable Branch tablet losartan 0 Yes 25mg Take 25 mg Uni vers (COZAAR) 25 3-25 by mouth ity of mg tablet 13:56: daily. [place] [address] Medical Branch Cholecalcif 0 Yes 1{capsu Take 1 Cap Univers greg, 3-25 le} by mouth ity of Vitamin D3, 13:56: [place]. [place] (VITAM[place] 11 Medical D3) 1,000 Branch unit Cap aspirin 2020-0 Yes 81mg Take 81 mg Univ ers (ASPIRIN 3-25 by mouth ity of CHILDRENS) 13:56: daily. [place] 81 mg 11 Medical chewable Branch tablet losartan 0 Yes 25mg Take 25 mg Uni vers (COZAAR) 25 3-25 by mouth ity of mg tablet 13:56: daily. [place] [address] Medical Branch Cholecalcif 0 Yes 1{capsu Take 1 Cap Univers greg, 3-25 le} by mouth ity of Vitamin D3, 13:56: daily. [place] (VITAMIN 11 Medical D3) 1,000 Branch unit Cap aspirin 2020-0 Yes 81mg Take 81 mg Univ ers (ASPIRIN 3-25 by mouth ity of CHILDRENS) 13:56: daily. [place] 81 mg 11 Medical chewable Branch tablet losartan 0 Yes 25mg Take 25 mg Uni vers (COZAAR) 25 3-25 by mouth ity of mg tablet 13:56: daily. [address] Branch Cholecalcif Yes 1{capsu Take 1 Cap Univers greg, 3-25 le} by mouth ity of Vitamin D3, 13:56: daily. [place] (VITAMIN 11 Medical D3) 1,000 Branch unit Cap aspirin 2020-0 Yes 81mg Take 81 mg Univ ers (ASPIRIN 3-25 by mouth ity of CHILDRENS) 13:56: daily. [place] 81 mg 11 Medical chewable Branch tablet losartan 0 Yes 25mg Take 25 mg Uni vers (COZAAR) 25 3-25 by mouth ity of mg tablet 13:56: daily. [place] [address] Medical Branch Cholecalcif 0 Yes 1{capsu Take 1 Cap Univers greg, 3-25 le} by mouth ity of Vitamin D3, 13:56: daily. [place] (VITAMIN 11 Medical D3) 1,000 Branch unit Cap aspirin 2020-0 Yes 81mg Take 81 mg Univ ers (ASPIRIN 3-25 by mouth ity of CHILDRENS) 13:56: daily. [place] 81 mg 11 Medical chewable Branch tablet losartan 0 Yes 25mg Take 25 mg Uni vers (COZAAR) 25 3-25 by mouth ity of mg tablet 13:56: daily. [place] [address] Medical Branch Cholecalcif Yes 1{capsu Take 1 Cap Univers greg, 3-25 le} by mouth ity of Vitamin D3, 13:56: daily. [place] (VITAMIN 11 Medical D3) 1,000 Branch unit Cap aspirin 0 Yes 81mg Take 81 mg Univ ers (ASPIRIN 3-25 by mouth ity of CHILDRENS) 13:56: daily. [place] 81 mg 11 Medical chewable Branch tablet losartan 0 Yes 25mg Take 25 mg Uni vers (COZAAR) 25 3-25 by mouth ity of mg tablet 13:56: daily. [place] [address] Medical Branch Cholecalcif Yes 1{capsu Take 1 Cap Univers greg, 3-25 le} by mouth ity of Vitamin D3, 13:56: daily. [place] (VITAMIN 11 Medical D3) 1,000 Branch unit Cap aspirin 0 Yes 81mg Take 81 mg Univ ers (ASPIRIN 3-25 by mouth ity of CHILDRENS) 13:56: daily. [place] 81 mg 11 Medical chewable Branch tablet losartan 0 Yes 25mg Take 25 mg Uni vers (COZAAR) 25 3-25 by mouth ity of mg tablet 13:56: daily. [place] [address] Medical Branch Cholecalcif 0 Yes 1{capsu Take 1 Cap Univers greg, 3-25 le} by mouth ity of Vitamin D3, 13:56: daily. [place] (VITAMIN 11 Medical D3) 1,000 Branch unit Cap aspirin 0 Yes 81mg Take 81 mg Univ ers (ASPIRIN 3-25 by mouth ity of CHILDRENS) 13:56: daily. [place] 81 mg 11 Medical chewable Branch tablet ASPIRIN 81 0 Yes 81mg Take 81 mg B aylor OR 1-07 by mouth [place] 19:24: daily. of 48 Medicin e Brinzolamid 2021-0 Yes [place] e-Brimonidi 10-28 [place] ne 19:22: of (SIMBRINZA) 58 Medicin 1-0.2 % e ophthalmic suspension Cholecalcif Yes 1{capsu Take 1 Cap [facility] greg 10-28 le} by mouth. [place] (VITAMIN 19:22: of D3) 25 MCG 58 Medicin (1000 UT) e CAPS clobetasol Yes 1 [facility] (TEMOVATE) 10-28 applicatio Col lege 0.05 % 19:22: n to of cream 58 affected Medicin area e esomeprazol Yes 1 tab [facility] (NEXIUM) 10-28 [place] 40 MG 19:22: of capsule 58 Medicin e simvastatin Yes 1 tablet Ba ylor (ZOCOR) 20 10-28 in the [place] MG tablet 19:22: evening of 58 Medicin e buPROPion 2019-10 Yes 100mg Take 100 Uni vers 100 mg 2-09 mg by ity of tablet 00:00: mouth. [address] buPROPion 2019-10 Yes 100mg Take 100 Uni vers 100 mg 2-09 mg by ity of tablet 00:00: mouth. [place] [facility] buPROPion 2019-10 Yes 100mg Take 100 Uni vers 100 mg 2-09 mg by ity of tablet 00:00: mouth. [place] [facility] buPROPion 2019-10 Yes 100mg Take 100 Uni vers 100 mg 2-09 mg by ity of tablet 00:00: mouth. [place] [facility] buPROPion 2019-10 Yes 100mg Take 100 Uni vers 100 mg 2-09 mg by ity of tablet 00:00: mouth. [place] [facility] buPROPion 2019-10 Yes 100mg Take 100 Uni vers 100 mg 2-09 mg by ity of tablet 00:00: mouth. [place] [facility] buPROPion 2019-10 Yes 100mg Take 100 Uni vers 100 mg 2-09 mg by ity of tablet 00:00: mouth. [place] [facility] buPROPion 2019-10 Yes 100mg Take 100 Uni vers 100 mg 2-09 mg by ity of tablet 00:00: mouth. [address] buPROPion 2019-10 Yes 100mg Take 100 Uni vers 100 mg 2-09 mg by ity of tablet 00:00: mouth. [address] buPROPion 2020- Yes 100mg Take 100 Uni vers 100 mg 2-09 mg by ity of tablet 00:00: mouth. [address] buPROPion 2020- Yes 100mg Take 100 [place] jemma (WELLBUTRIN 2-09 mg by [place] ) 100 MG 00:00: mouth of tablet 00 daily. Medicin e buPROPion 2019- Yes 100mg Take 100 [place] (WELLBUTRIN 2-09 mg by [place] ) 100 MG 00:00: mouth of tablet 00 daily. Medicin e amlodipine 2020-0 2020- No 1 tablet [facility] (NORVASC) 5 8 0820 [place] MG tablet 20:21: 00:00 of 16 :00 Medicin e Brinzolamid 2020-0 Yes [facility] e-Brimonidi 06-10 [place] ne 20:02: of (SIMBRINZA) 23 Medicin 1-0.2 % e ophthalmic suspension Cholecalcif 2020-0 Yes 1{capsu Take 1 Cap [facility] greg 06-10 le} by mouth. [place] (VITAMIN 20:02: of D3) 25 MCG 23 Medicin (1000 UT) e CAPS clobetasol 2019-0 Yes 1 [facility] (TEMOVATE) 06-10 applicatio Col lege 0.05 % 20:02: n to of cream 23 affected Medicin area e esomeprazol 2019-0 Yes 1 tab [facility] (NEXIUM) 06-10 [place] 40 MG 20:02: of capsule 23 Medicin e simvastatin 2020-0 Yes 1 tablet [facility] (ZOCOR) 20 06-10 in the [place] MG tablet 20:02: evening of 23 Medicin e amlodipine 2020-0 Yes 1 tablet [place] (NORVASC) 5 04-21 [place] MG tablet 18:43: of 53 Medicin e Brinzolamid 2020-0 Yes [facility] e-Brimonidi 04-21 [place] ne 18:43: of (SIMBRINZA) 53 Medicin 1-0.2 % e ophthalmic suspension Cholecalcif 2020-0 Yes 1{capsu Take 1 Cap [facility] greg 04-21 le} by mouth. [place] (VITAMIN 18:43: of D3) 25 MCG 53 Medicin (1000 UT) e CAPS clobetasol 2020-0 Yes 1 [facility] (TEMOVATE) 04-21 applicatio Col lege 0.05 % 18:43: n to of cream 53 affected Medicin area e esomeprazol Yes 1 tab [facility] (NEXIUM) 04-21 [place] 40 MG 18:43: of capsule 53 Medicin e simvastatin Yes 1 tablet [facility] (ZOCOR) 20 04-21 in the [place] MG tablet 18:43: evening of 53 Medicin e Gabapentin Gabapentin Yes Marissa 1 capsule Common 6 [place] as needed Spiri t 00:00: for pain - [facility] 00 [facility] lisinopril Yes TAKE 1 [facility] (PRINIVIL, 5-14 TABLET BY Mel[facility]ie ege ZESTRIL) 20 00:00: MOUTH ONCE of MG tablet 00 DAILY FOR Medic in 90 DAYS e lisinopril Yes TAKE 1 [facility] (PRINIVIL, 5-14 TABLET BY Melonie ege ZESTRIL) 20 00:00: MOUTH ONCE of MG tablet 00 DAILY FOR Medic in 90 DAYS e lisinopril Yes TAKE 1 [facility] (PRINIVIL, 5-14 TABLET BY [facility] ege ZESTRIL) 20 00:00: MOUTH ONCE of MG tablet 00 DAILY FOR Medic in 90 DAYS e lisinopril Yes TAKE 1 [facility] (PRINIVIL, 5-14 TABLET BY [facility] ege ZESTRIL) 20 00:00: MOUTH ONCE of MG tablet 00 DAILY FOR Medic in 90 DAYS e Ferrous Yes TAKE 1 [place] Sulfate 4-05 TABLET BY [place] (IRON) 325 00:00: MOUTH ONCE o f (65 Fe) MG 00 DAILY FOR Medi madeline TABS 90 DAYS e furosemide 0 Yes TAKE 1 [facility] (LASIX) 20 4-05 TABLET BY [facility] ege MG tablet 00:00: MOUTH ONCE of 00 DAILY FOR Medicin 90 DAYS e Ferrous 2019-0 Yes TAKE 1 [facility] Sulfate 4-05 TABLET BY [place] (IRON) 325 00:00: MOUTH ONCE o f (65 Fe) MG 00 DAILY FOR Medi madeline TABS 90 DAYS e furosemide Yes TAKE 1 [facility] (LASIX) 20 4-05 TABLET BY [facility] ege MG tablet 00:00: MOUTH ONCE of 00 DAILY FOR Medicin 90 DAYS e Ferrous 2019-0 Yes TAKE 1 [place] Sulfate 4-05 TABLET BY [place] (IRON) 325 00:00: MOUTH ONCE o f (65 Fe) MG 00 DAILY FOR Medi madeline TABS 90 DAYS e furosemide Yes TAKE 1 [facility] (LASIX) 20 4-05 TABLET BY Melonie ege MG tablet 00:00: MOUTH ONCE of 00 DAILY FOR Medicin 90 DAYS e Ferrous 2020- Yes TAKE 1 [facility] Sulfate 4-05 TABLET BY [place] (IRON) 325 00:00: MOUTH ONCE o f (65 Fe) MG 00 DAILY FOR Medi madeline TABS 90 DAYS e furosemide Yes TAKE 1 [facility] (LASIX) 20 4-05 TABLET BY Melonie ege MG tablet 00:00: MOUTH ONCE of 00 DAILY FOR Medicin 90 DAYS e Uloric Uloric 2019- No Marissa 1 tablet Com mon 01-17 [facility] 00:00: 00:00 - [facility] 00 :00 [facility] Triamcinolo Triamcinolo Yes Marissa 1 Common ne ne 12-25 [place] applicatio Spir it Acetonide Acetonide 00:00: n to - C HI 00 affected [facility] Febuxostat 2018-2020- No 1 tablet [facility] (ULORIC) 40 12-20 [place] MG TABS 00:00: 05:59 of 00 :00 Medicin e Febuxostat 2018-0 2020- No 1 tablet [facility] (ULORIC) 40 12-20 [place] MG TABS 00:00: 05:59 of 00 :00 Medicin e triamcinolo Yes Apply to Un traci ne 0.1 % 6-22 area(s) 3 ity of lotion 00:00: (three) [place] 00 times Medical daily. Branch triamcinolo Yes Apply to Un traci ne 0.1 % 6-22 area(s) 3 ity of lotion 00:00: (three) [place] 00 times Medical daily. Branch triamcinolo Yes Apply to Un traci ne 0.1 % 6-22 area(s) 3 ity of lotion 00:00: (three) [place] 00 times Medical daily. Branch triamcinolo Yes Apply to Un traci ne 0.1 % 6-22 area(s) 3 ity of lotion 00:00: (three) [place] 00 times Medical daily. Branch triamcinolo 2018-0 Yes Apply to Un traci ne 0.1 % 6-22 area(s) 3 ity of lotion 00:00: (three) [place] 00 times Medical daily. Branch triamcinolo 2018-0 Yes Apply to Un traci ne 0.1 % 6-22 area(s) 3 ity of lotion 00:00: (three) [place] 00 times Medical daily. Branch triamcinolo 2018-0 Yes Apply to Un traci ne 0.1 % 6-22 area(s) 3 ity of lotion 00:00: (three) [place] 00 times Medical daily. Branch triamcinolo 2018-0 Yes Apply to Un traci ne 0.1 % 6-22 area(s) 3 ity of lotion 00:00: (three) [place] 00 times Medical daily. Branch triamcinolo 2017-0 Yes Apply to Un traci ne 0.1 % 6-22 area(s) 3 ity of lotion 00:00: (three) [place] 00 times Medical daily. Branch triamcinolo 2017-0 Yes Apply to Un traci ne 0.1 % 6-22 area(s) 3 ity of lotion 00:00: (three) [place] 00 times Medical daily. Branch triamcinolo 2017-0 Yes Apply to U nivers ne 0.1 % 6-22 area(s) 3 ity of lotion 00:00: (three) [place] 00 times Medical daily. Branch triamcinolo 2018-0 Yes Apply to Un traci ne 0.1 % 6-22 area(s) 3 ity of lotion 00:00: (three) [place] 00 times Medical daily. Branch triamcinolo 2017-0 Yes Apply to Un traci ne 0.1 % 6-22 area(s) 3 ity of lotion 00:00: (three) [place] 00 times Medical daily. Branch triamcinolo 2018-0 Yes Apply to Un traci ne 0.1 % 6-22 area(s) 3 ity of lotion 00:00: (three) [place] 00 times Medical daily. Branch edson 2014-0 Yes 25mg Take 25 mg Uni vers (COZAAR) 25 6-18 by mouth ity of mg tablet 16:22: daily. [place] 43 Medical Branch losartan Yes 25mg Take 25 mg Uni vers (COZAAR) 25 6-18 by mouth ity of mg tablet 16:22: daily. [address] Branch Cholecalcif Yes 1{capsu Take 1 Cap [facility] greg, 6-18 le} by mouth ity of Vitamin D3, 15:54: daily. [place] (VITAMIN 30 Medical D3) 1,000 Branch unit Cap aspirin Yes 81mg Take 81 mg Univ ers (ASPIRIN 6-18 by mouth ity of CHILDRENS) 15:54: daily. [place] 81 mg 30 Medical chewable Branch tablet Cholecalcif Yes 1{capsu Take 1 Cap [facility] greg, 6-18 le} by mouth ity of Vitamin D3, 15:54: daily. [place] (VITAMIN 30 Medical D3) 1,000 Branch unit Cap aspirin Yes 81mg Take 81 mg Univ ers (ASPIRIN 6-18 by mouth ity of CHILDRENS) 15:54: daily. [place] 81 mg 30 Medical chewable Branch tablet [...] s 100 mg 00 Medical tablet Branch pravastatin Yes 40mg Take [...] mg 00 daily. Medical Iron) Branch tablet Uloric 40 Uloric 40 No 1{table Uloric 40 MG MG t} MG Furosemide Furosemide No 1{table QD Furosemide 20 MG 20 MG t} 20 MG Ferrous Ferrous No 1{table TID Ferrous Sulfate 325 Sulfate 325 t} Sulfate (65 Fe) MG (65 Fe) MG 325 (65 Fe) MG Lisinopril Lisinopril No QD Lisinopril 10 MG 10 MG 10 MG Triamcinolo Triamcinolo No 1{appli BID Triamcinol ne ne cation} one Acetonide Acetonide Acetonide 0.1 % 0.1 % 0.1 % Aspir-81 81 Aspir-81 81 No 1{table QD Aspir-81 MG MG t} 81 MG Linzess 145 Linzess 145 No Linzess MCG MCG 145 MCG buPROPion buPROPion No BID buPROPion HCl 100 MG HCl 100 MG HCl 100 MG Gabapentin Gabapentin No Gabapentin 100 MG 100 MG 100 MG Simvastatin Simvastatin No 1{table QD Simvastati 20 mg 20 mg t_in_th n 20 mg e_eveni ng} Temovate Temovate No 1{appli BID Temovate 0.05 % 0.05 % cation_ 0.05 % to_affe cted_ar ea} Triamcinolo Triamcinolo No 1{appli BID Triamcinol ne ne cation} one Acetonide Acetonide Acetonide 0.1 % 0.1 % 0.1 % Ferrous Ferrous No 1{table TID Ferrous Sulfate 325 Sulfate 325 t} Sulfate (65 Fe) MG (65 Fe) MG 325 (65 Fe) MG Uloric 40 Uloric 40 No 1{table Uloric 40 MG MG t} MG Temovate Temovate No 1{appli BID Temovate 0.05 % 0.05 % cation_ 0.05 % to_affe cted_ar ea} Linzess 145 Linzess 145 No Linzess MCG MCG 145 MCG Aspir-81 81 Aspir-81 81 No 1{table QD Aspir-81 MG MG t} 81 MG Esomeprazol Esomeprazol No Esomeprazo e Magnesium e Magnesium le 20 MG 20 MG Magnesium 20 MG Lisinopril Lisinopril No QD Lisinopril 10 MG 10 MG 10 MG Albuterol Albuterol No Albuterol Sulfate HFA Sulfate HFA Sulfate 108 (90 108 (90 HFA 108 Base) Base) (90 Base) MCG/ACT MCG/ACT MCG/ACT Lumigan Lumigan No 1{drop_ QD [place] 0.01 % 0.01 % into_af 0.01 % fected_ eye_in_ the_eve annel} buPROPion buPROPion No BID buPROPion HCl 100 MG HCl 100 MG HCl 100 MG Gabapentin Gabapentin No Gabapentin 100 MG 100 MG 100 MG Furosemide Furosemide No 1{table QD Furosemide 20 MG 20 MG t} 20 MG Simvastatin Simvastatin No 1{table QD Simvastati 20 mg 20 mg t_in_th n 20 mg e_eveni ng} Gabapentin Gabapentin No Gabapentin 100 MG 100 MG 100 MG Simvastatin Simvastatin No 1{table QD Simvastati 20 mg 20 mg t_in_th n 20 mg e_eveni ng} Lumigan Lumigan No 1{drop_ QD [place] 0.01 % 0.01 % into_af 0.01 % fected_ eye_in_ the_eve annel} Temovate Temovate No 1{appli BID Temovate 0.05 % 0.05 % cation_ 0.05 % to_affe cted_ar ea} buPROPion buPROPion No BID buPROPion HCl 100 MG HCl 100 MG HCl 100 MG Aspir-81 81 Aspir-81 81 No 1{table QD Aspir-81 MG MG t} 81 MG Triamcinolo Triamcinolo No 1{appli BID Triamcinol ne ne cation} one Acetonide Acetonide Acetonide 0.1 % 0.1 % 0.1 % Ferrous Ferrous No 1{table TID Ferrous Sulfate 325 Sulfate 325 t} Sulfate (65 Fe) MG (65 Fe) MG 325 (65 Fe) MG Lisinopril Lisinopril No QD Lisinopril 10 MG 10 MG 10 MG Albuterol Albuterol No Albuterol Sulfate HFA Sulfate HFA Sulfate 108 (90 108 (90 HFA 108 Base) Base) (90 Base) MCG/ACT MCG/ACT MCG/ACT Furosemide Furosemide No 1{table QD Furosemide 20 MG 20 MG t} 20 MG Uloric 40 Uloric 40 No 1{table Uloric 40 MG MG t} MG Allopurinol Allopurinol No Allopurino 100 MG 100 MG l 100 MG Esomeprazol Esomeprazol No Esomeprazo e Magnesium e Magnesium le 20 MG 20 MG Magnesium 20 MG Linzess 145 Linzess 145 No Linzess MCG MCG 145 MCG buPROPion buPROPion No BID buPROPion HCl 100 MG HCl 100 MG HCl 100 MG Esomeprazol Esomeprazol No Esomeprazo e Magnesium e Magnesium le 20 MG 20 MG Magnesium 20 MG Temovate Temovate No 1{appli BID Temovate 0.05 % 0.05 % cation_ 0.05 % to_affe cted_ar ea} Albuterol Albuterol No Albuterol Sulfate HFA Sulfate HFA Sulfate 108 (90 108 (90 HFA 108 Base) Base) (90 Base) MCG/ACT MCG/ACT MCG/ACT Linzess 145 Linzess 145 No Linzess MCG MCG 145 MCG Lisinopril Lisinopril No QD Lisinopril 10 MG 10 MG 10 MG Pantoprazol Pantoprazol No 1{table QD Pantoprazo e Sodium 40 e Sodium 40 t} le Sodium MG MG 40 MG Triamcinolo Triamcinolo No 1{appli BID Triamcinol ne ne cation} one Acetonide Acetonide Acetonide 0.1 % 0.1 % 0.1 % Aspir-81 81 Aspir-81 81 No 1{table QD Aspir-81 MG MG t} 81 MG Simvastatin Simvastatin No 1{table QD Simvastati 20 mg 20 mg t_in_th n 20 mg e_eveni ng} Uloric 40 Uloric 40 No 1{table Uloric 40 MG MG t} MG Ferrous Ferrous No 1{table TID Ferrous Sulfate 325 Sulfate 325 t} Sulfate (65 Fe) MG (65 Fe) MG 325 (65 Fe) MG Lumigan Lumigan No 1{drop_ QD [place] 0.01 % 0.01 % into_af 0.01 % fected_ eye_in_ the_eve annel} Furosemide Furosemide No 1{table QD Furosemide 20 MG 20 MG t} 20 MG Gabapentin Gabapentin No Gabapentin 100 MG 100 MG 100 MG Allopurinol Allopurinol No Allopurino 100 MG 100 MG l 100 MG nexium nexium Yes Marissa 1 tab Common [facility] Furosemide Furosemide Yes Marissa 1 tablet Common [facility] Norvasc Norvasc Yes Marissa 1 tablet Comm on [facility] - [facility] Lumigan Lumigan Yes Marissa 1 drop Common [facility] into Spirit affected - [facility] eye in the [facility] Aspir-81 Aspir-81 Yes Marissa 1 tablet Co mmon [facility] Temovate Temovate Yes Marissa 1 Common [facility] applicatio Spir it n to - [facility]I affected [facility] Ferrous Ferrous Yes Marissa 1 tablet Comm on Sulfate Sulfate [facility] Spir it - [facility] Lisinopril Lisinopril Yes Marissa 1-2 Co mmon [facility] tablets Spirit - [facility] Simvastatin Simvastatin Yes Marissa 1 tablet Common [facility] in the [facility] evening [facility] buPROPion buPROPion No BID buPROPion HCl 100 MG HCl 100 MG HCl 100 MG Gabapentin Gabapentin No Gabapentin 100 MG 100 MG 100 MG Simvastatin Simvastatin No 1{table QD Simvastati 20 mg 20 mg t_in_ n 20 mg e_eveni ng} Ferrous Ferrous No 1{table TID Ferrous Sulfate 325 Sulfate 325 t} Sulfate (65 Fe) MG (65 Fe) MG 325 (65 Fe) MG Temovate Temovate No 1{appli BID Temovate 0.05 % 0.05 % cation_ 0.05 % to_affe cted_ar ea} Lisinopril Lisinopril No QD Lisinopril 10 MG 10 MG 10 MG Uloric 40 Uloric 40 No 1{table Uloric 40 MG MG t} MG nexium 20 nexium 20 No 1{capsu QD nexium 20 MG MG le} MG Triamcinolo Triamcinolo No 1{appli BID Triamcinol ne ne cation_ one Acetonide Acetonide to_affe Acetonide 0.1 % 0.1 % cted_ar 0.1 % ea} Lumigan Lumigan No 1{drop_ QD [place] 0.01 % 0.01 % into_af 0.01 % fected_ eye_in_ the_eve annel} Aspir-81 81 Aspir-81 81 No 1{table QD Aspir-81 MG MG t} 81 MG Furosemide Furosemide No 1{table QD Furosemide 20 MG 20 MG t} 20 MG Gabapentin Gabapentin No Gabapentin 100 MG 100 MG 100 MG buPROPion buPROPion No BID buPROPion HCl 100 MG HCl 100 MG HCl 100 MG Ferrous Ferrous No 1{table TID Ferrous Sulfate 325 Sulfate 325 t} Sulfate (65 Fe) MG (65 Fe) MG 325 (65 Fe) MG nexium 20 nexium 20 No 1{capsu QD nexium 20 MG MG le} MG Simvastatin Simvastatin No 1{table QD Simvastati 20 mg 20 mg t_in_th n 20 mg e_eveni ng} Triamcinolo Triamcinolo No 1{appli BID Triamcinol ne ne cation_ one Acetonide Acetonide to_affe Acetonide 0.1 % 0.1 % cted_ar 0.1 % ea} Lisinopril Lisinopril No QD Lisinopril 10 MG 10 MG 10 MG Furosemide Furosemide No 1{table QD Furosemide 20 MG 20 MG t} 20 MG Uloric 40 Uloric 40 No 1{table Uloric 40 MG MG t} MG Linzess 145 Linzess 145 No Linzess MCG MCG 145 MCG Aspir-81 81 Aspir-81 81 No 1{table QD Aspir-81 MG MG t} 81 MG Temovate Temovate No 1{appli BID Temovate 0.05 % 0.05 % cation_ 0.05 % to_affe cted_ar ea} Lumigan Lumigan No 1{drop_ QD Lumigan 0.01 % 0.01 % into_af 0.01 % fected_ eye_in_ the_eve annel} Gabapentin Gabapentin No Gabapentin 100 MG 100 MG 100 MG buPROPion buPROPion No BID buPROPion HCl 100 MG HCl 100 MG HCl 100 MG Ferrous Ferrous No 1{table TID Ferrous Sulfate 325 Sulfate 325 t} Sulfate (65 Fe) MG (65 Fe) MG 325 (65 Fe) MG nexium 20 nexium 20 No 1{capsu QD nexium 20 MG MG le} MG Simvastatin Simvastatin No 1{table QD Simvastati 20 mg 20 mg t_in_th n 20 mg e_eveni ng} Triamcinolo Triamcinolo No 1{appli BID Triamcinol ne ne cation_ one Acetonide Acetonide to_affe Acetonide 0.1 % 0.1 % cted_ar 0.1 % ea} Lisinopril Lisinopril No QD Lisinopril 10 MG 10 MG 10 MG Furosemide Furosemide No 1{table QD Furosemide 20 MG 20 MG t} 20 MG Uloric 40 Uloric 40 No 1{table Uloric 40 MG MG t} MG Linzess 145 Linzess 145 No Linzess MCG MCG 145 MCG Aspir-81 81 Aspir-81 81 No 1{table QD Aspir-81 MG MG t} 81 MG Temovate Temovate No 1{appli BID Temovate 0.05 % 0.05 % cation_ 0.05 % to_affe cted_ar ea} Lumigan Lumigan No 1{drop_ QD Lumigan 0.01 % 0.01 % into_af 0.01 % fected_ eye_in_ the_eve annel} Gabapentin Gabapentin No Gabapentin 100 MG 100 MG 100 MG buPROPion buPROPion No BID buPROPion HCl 100 MG HCl 100 MG HCl 100 MG Ferrous Ferrous No 1{table TID Ferrous Sulfate 325 Sulfate 325 t} Sulfate (65 Fe) MG (65 Fe) MG 325 (65 Fe) MG nexium 20 nexium 20 No 1{capsu QD nexium 20 MG MG le} MG Simvastatin Simvastatin No 1{table QD Simvastati 20 mg 20 mg t_in_th n 20 mg e_eveni ng} Triamcinolo Triamcinolo No 1{appli BID Triamcinol ne ne cation_ one Acetonide Acetonide to_affe Acetonide 0.1 % 0.1 % cted_ar 0.1 % ea} Lisinopril Lisinopril No QD Lisinopril 10 MG 10 MG 10 MG Furosemide Furosemide No 1{table QD Furosemide 20 MG 20 MG t} 20 MG Uloric 40 Uloric 40 No 1{table Uloric 40 MG MG t} MG Linzess 145 Linzess 145 No Linzess MCG MCG 145 MCG Aspir-81 81 Aspir-81 81 No 1{table QD Aspir-81 MG MG t} 81 MG Temovate Temovate No 1{appli BID Temovate 0.05 % 0.05 % cation_ 0.05 % to_affe cted_ar ea} Lumigan Lumigan No 1{drop_ QD Lumigan 0.01 % 0.01 % into_af 0.01 % fected_ eye_in_ the_eve annel} Gabapentin Gabapentin No Gabapentin 100 MG 100 MG 100 MG Lumigan Lumigan No 1{drop_ QD Lumigan 0.01 % 0.01 % into_af 0.01 % fected_ eye_in_ the_evanjel up} Ferrous Ferrous No 1{table TID Ferrous Sulfate 325 Sulfate 325 t} Sulfate (65 Fe) MG (65 Fe) MG 325 (65 Fe) MG Triamcinolo Triamcinolo No 1{appli BID Triamcinol ne ne cation} one Acetonide Acetonide Acetonide 0.1 % 0.1 % 0.1 % Triamcinolo Triamcinolo No 1{appli BID Triamcinol ne ne cation_ one Acetonide Acetonide to_affe Acetonide 0.1 % 0.1 % cted_ar 0.1 % ea} Uloric 40 Uloric 40 No 1{table Uloric 40 MG MG t} MG Furosemide Furosemide No 1{table QD Furosemide 20 MG 20 MG t} 20 MG buPROPion buPROPion No BID buPROPion HCl 100 MG HCl 100 MG HCl 100 MG Aspir-81 81 Aspir-81 81 No 1{table QD Aspir-81 MG MG t} 81 MG Temovate Temovate No 1{appli BID Temovate 0.05 % 0.05 % cation_ 0.05 % to_affe cted_ar ea} Simvastatin Simvastatin No 1{table QD Simvastati 20 mg 20 mg t_in_th n 20 mg e_eveni ng} Lisinopril Lisinopril No QD Lisinopril 10 MG 10 MG 10 MG Linzess 145 Linzess 145 No Linzess MCG MCG 145 MCG nexium 20 nexium 20 No 1{capsu QD nexium 20 MG MG le} MG buPROPion buPROPion No BID buPROPion HCl 100 MG HCl 100 MG HCl 100 MG Aspir-81 81 Aspir-81 81 No 1{table QD Aspir-81 MG MG t} 81 MG Triamcinolo Triamcinolo No 1{appli BID Triamcinol ne ne cation_ one Acetonide Acetonide to_affe Acetonide 0.1 % 0.1 % cted_ar 0.1 % ea} Ferrous Ferrous No 1{table TID Ferrous Sulfate 325 Sulfate 325 t} Sulfate (65 Fe) MG (65 Fe) MG 325 (65 Fe) MG Triamcinolo Triamcinolo No 1{appli BID Triamcinol ne ne cation} one Acetonide Acetonide Acetonide 0.1 % 0.1 % 0.1 % Lisinopril Lisinopril No QD Lisinopril 10 MG 10 MG 10 MG Furosemide Furosemide No 1{table QD Furosemide 20 MG 20 MG t} 20 MG Linzess 145 Linzess 145 No Linzess MCG MCG 145 MCG nexium 20 nexium 20 No 1{capsu QD nexium 20 MG MG le} MG Lumigan Lumigan No 1{drop_ QD Lumigan 0.01 % 0.01 % into_af 0.01 % fected_ eye_in_ the_eve annel} Temovate Temovate No 1{appli BID Temovate 0.05 % 0.05 % cation_ 0.05 % to_affe cted_ar ea} Uloric 40 Uloric 40 No 1{table Uloric 40 MG MG t} MG Simvastatin Simvastatin No 1{table QD Simvastati 20 mg 20 mg t_in_th n 20 mg e_eveni ng} Gabapentin Gabapentin No Gabapentin 100 MG 100 MG 100 MG Furosemide Furosemide No 1{table QD Furosemide 20 MG 20 MG t} 20 MG Linzess 145 Linzess 145 No Linzess MCG MCG 145 MCG Temovate Temovate No 1{appli BID Temovate 0.05 % 0.05 % cation_ 0.05 % to_affe cted_ar ea} Simvastatin Simvastatin No 1{table QD Simvastati 20 mg 20 mg t_in_th n 20 mg e_eveni ng} Gabapentin Gabapentin No Gabapentin 100 MG 100 MG 100 MG Triamcinolo Triamcinolo No 1{appli BID Triamcinol ne ne cation} one Acetonide Acetonide Acetonide 0.1 % 0.1 % 0.1 % Lisinopril Lisinopril No QD Lisinopril 10 MG 10 MG 10 MG nexium 20 nexium 20 No 1{capsu QD nexium 20 MG MG le} MG buPROPion buPROPion No BID buPROPion HCl 100 MG HCl 100 MG HCl 100 MG Ferrous Ferrous No 1{table TID Ferrous Sulfate 325 Sulfate 325 t} Sulfate (65 Fe) MG (65 Fe) MG 325 (65 Fe) MG Aspir-81 81 Aspir-81 81 No 1{table QD Aspir-81 MG MG t} 81 MG Triamcinolo Triamcinolo No 1{appli BID Triamcinol ne ne cation_ one Acetonide Acetonide to_affe Acetonide 0.1 % 0.1 % cted_ar 0.1 % ea} Uloric 40 Uloric 40 No 1{table Uloric 40 MG MG t} MG Lumigan Lumigan No 1{drop_ QD Lumigan 0.01 % 0.01 % into_af 0.01 % fected_ eye_in_ the_eve annel} Furosemide Furosemide No 1{table QD Furosemide 20 MG 20 MG t} 20 MG Linzess 145 Linzess 145 No Linzess MCG MCG 145 MCG Temovate Temovate No 1{appli BID Temovate 0.05 % 0.05 % cation_ 0.05 % to_affe cted_ar ea} Simvastatin Simvastatin No 1{table QD Simvastati 20 mg 20 mg t_in_th n 20 mg e_eveni ng} Gabapentin Gabapentin No Gabapentin 100 MG 100 MG 100 MG Triamcinolo Triamcinolo No 1{appli BID Triamcinol ne ne cation} one Acetonide Acetonide Acetonide 0.1 % 0.1 % 0.1 % Lisinopril Lisinopril No QD Lisinopril 10 MG 10 MG 10 MG nexium 20 nexium 20 No 1{capsu QD nexium 20 MG MG le} MG buPROPion buPROPion No BID buPROPion HCl 100 MG HCl 100 MG HCl 100 MG Ferrous Ferrous No 1{table TID Ferrous Sulfate 325 Sulfate 325 t} Sulfate (65 Fe) MG (65 Fe) MG 325 (65 Fe) MG Aspir-81 81 Aspir-81 81 No 1{table QD Aspir-81 MG MG t} 81 MG Triamcinolo Triamcinolo No 1{appli BID Triamcinol ne ne cation_ one Acetonide Acetonide to_affe Acetonide 0.1 % 0.1 % cted_ar 0.1 % ea} Uloric 40 Uloric 40 No 1{table Uloric 40 MG MG t} MG Lumigan Lumigan No 1{drop_ QD Lumigan 0.01 % 0.01 % into_af 0.01 % fected_ eye_in_ the_eve annel} Triamcinolo Triamcinolo No 1{appli BID Triamcinol ne ne cation} one Acetonide Acetonide Acetonide 0.1 % 0.1 % 0.1 % Lumigan Lumigan No 1{drop_ QD Lumigan 0.01 % 0.01 % into_af 0.01 % fected_ eye_in_ the_eve annel} Temovate Temovate No 1{appli BID Temovate 0.05 % 0.05 % cation_ 0.05 % to_affe cted_ar ea} Ferrous Ferrous No 1{table TID Ferrous Sulfate 325 Sulfate 325 t} Sulfate (65 Fe) MG (65 Fe) MG 325 (65 Fe) MG Linzess 145 Linzess 145 No Linzess MCG MCG 145 MCG Simvastatin Simvastatin No 1{table QD Simvastati 20 mg 20 mg t_in_ n 20 mg e_eveni ng} nexium 20 nexium 20 No 1{capsu QD nexium 20 MG MG le} MG Aspir-81 81 Aspir-81 81 No 1{table QD Aspir-81 MG MG t} 81 MG Furosemide Furosemide No 1{table QD Furosemide 20 MG 20 MG t} 20 MG Lisinopril Lisinopril No QD Lisinopril 10 MG 10 MG 10 MG buPROPion buPROPion No BID buPROPion HCl 100 MG HCl 100 MG HCl 100 MG Gabapentin Gabapentin No Gabapentin 100 MG 100 MG 100 MG Uloric 40 Uloric 40 No 1{table Uloric 40 MG MG t} MG Triamcinolo Triamcinolo No 1{appli BID Triamcinol ne ne cation_ one Acetonide Acetonide to_affe Acetonide 0.1 % 0.1 % cted_ar 0.1 % ea} Triamcinolo Triamcinolo No 1{appli BID Triamcinol ne ne cation} one Acetonide Acetonide Acetonide 0.1 % 0.1 % 0.1 % Lumigan Lumigan No 1{drop_ QD Lumigan 0.01 % 0.01 % into_af 0.01 % fected_ eye_in_ the_eve annel} Temovate Temovate No 1{appli BID Temovate 0.05 % 0.05 % cation_ 0.05 % to_affe cted_ar ea} Ferrous Ferrous No 1{table TID Ferrous Sulfate 325 Sulfate 325 t} Sulfate (65 Fe) MG (65 Fe) MG 325 (65 Fe) MG Linzess 145 Linzess 145 No Linzess MCG MCG 145 MCG Simvastatin Simvastatin No 1{table QD Simvastati 20 mg 20 mg t_in_th n 20 mg e_eveni ng} nexium 20 nexium 20 No 1{capsu QD nexium 20 MG MG le} MG Aspir-81 81 Aspir-81 81 No 1{table QD Aspir-81 MG MG t} 81 MG Furosemide Furosemide No 1{table QD Furosemide 20 MG 20 MG t} 20 MG Lisinopril Lisinopril No QD Lisinopril 10 MG 10 MG 10 MG buPROPion buPROPion No BID buPROPion HCl 100 MG HCl 100 MG HCl 100 MG Gabapentin Gabapentin No Gabapentin 100 MG 100 MG 100 MG Uloric 40 Uloric 40 No 1{table Uloric 40 MG MG t} MG Triamcinolo Triamcinolo No 1{appli BID Triamcinol ne ne cation_ one Acetonide Acetonide to_affe Acetonide 0.1 % 0.1 % cted_ar 0.1 % ea} Temovate Temovate No 1{appli BID Temovate 0.05 % 0.05 % cation_ 0.05 % to_affe cted_ar ea} Triamcinolo Triamcinolo No 1{appli BID Triamcinol ne ne cation} one Acetonide Acetonide Acetonide 0.1 % 0.1 % 0.1 % Lisinopril Lisinopril No QD Lisinopril 10 MG 10 MG 10 MG Ferrous Ferrous No 1{table TID Ferrous Sulfate 325 Sulfate 325 t} Sulfate (65 Fe) MG (65 Fe) MG 325 (65 Fe) MG Simvastatin Simvastatin No 1{table QD Simvastati 20 mg 20 mg t_in_th n 20 mg e_eveni ng} Linzess 145 Linzess 145 No Linzess MCG MCG 145 MCG Furosemide Furosemide No 1{table QD Furosemide 20 MG 20 MG t} 20 MG Lumigan Lumigan No 1{drop_ QD Lumigan 0.01 % 0.01 % into_af 0.01 % fected_ eye_in_ the_eve annel} buPROPion buPROPion No BID buPROPion HCl 100 MG HCl 100 MG HCl 100 MG Aspir-81 81 Aspir-81 81 No 1{table QD Aspir-81 MG MG t} 81 MG Gabapentin Gabapentin No Gabapentin 100 MG 100 MG 100 MG Uloric 40 Uloric 40 No 1{table Uloric 40 MG MG t} MG Triamcinolo Triamcinolo No 1{appli BID Triamcinol ne ne cation_ one Acetonide Acetonide to_affe Acetonide 0.1 % 0.1 % cted_ar 0.1 % ea} Linzess 145 Linzess 145 No Linzess MCG MCG 145 MCG Triamcinolo Triamcinolo No 1{appli BID Triamcinol ne ne cation_ one Acetonide Acetonide to_affe Acetonide 0.1 % 0.1 % cted_ar 0.1 % ea} Aspir-81 81 Aspir-81 81 No 1{table QD Aspir-81 MG MG t} 81 MG Furosemide Furosemide No 1{table QD Furosemide 20 MG 20 MG t} 20 MG Lisinopril Lisinopril No QD Lisinopril 10 MG 10 MG 10 MG Ferrous Ferrous No 1{table TID Ferrous Sulfate 325 Sulfate 325 t} Sulfate (65 Fe) MG (65 Fe) MG 325 (65 Fe) MG Gabapentin Gabapentin No Gabapentin 100 MG 100 MG 100 MG Triamcinolo Triamcinolo No 1{appli BID Triamcinol ne ne cation} one Acetonide Acetonide Acetonide 0.1 % 0.1 % 0.1 % buPROPion buPROPion No BID buPROPion HCl 100 MG HCl 100 MG HCl 100 MG Temovate Temovate No 1{appli BID Temovate 0.05 % 0.05 % cation_ 0.05 % to_affe cted_ar ea} Uloric 40 Uloric 40 No 1{table Uloric 40 MG MG t} MG Lumigan Lumigan No 1{drop_ QD Lumigan 0.01 % 0.01 % into_af 0.01 % fected_ eye_in_ the_eve annel} Simvastatin Simvastatin No 1{table QD Simvastati 20 mg 20 mg t_in_th n 20 mg e_eveni ng} Linzess 145 Linzess 145 No Linzess MCG MCG 145 MCG Triamcinolo Triamcinolo No 1{appli BID Triamcinol ne ne cation_ one Acetonide Acetonide to_affe Acetonide 0.1 % 0.1 % cted_ar 0.1 % ea} Aspir-81 81 Aspir-81 81 No 1{table QD Aspir-81 MG MG t} 81 MG Furosemide Furosemide No 1{table QD Furosemide 20 MG 20 MG t} 20 MG Lisinopril Lisinopril No QD Lisinopril 10 MG 10 MG 10 MG Ferrous Ferrous No 1{table TID Ferrous Sulfate 325 Sulfate 325 t} Sulfate (65 Fe) MG (65 Fe) MG 325 (65 Fe) MG Gabapentin Gabapentin No Gabapentin 100 MG 100 MG 100 MG Triamcinolo Triamcinolo No 1{appli BID Triamcinol ne ne cation} one Acetonide Acetonide Acetonide 0.1 % 0.1 % 0.1 % buPROPion buPROPion No BID buPROPion HCl 100 MG HCl 100 MG HCl 100 MG Temovate Temovate No 1{appli BID Temovate 0.05 % 0.05 % cation_ 0.05 % to_affe cted_ar ea} Uloric 40 Uloric 40 No 1{table Uloric 40 MG MG t} MG Lumigan Lumigan No 1{drop_ QD Lumigan 0.01 % 0.01 % into_af 0.01 % fected_ eye_in_ the_eve annel} Simvastatin Simvastatin No 1{table QD Simvastati 20 mg 20 mg t_in_th n 20 mg e_eveni ng} Simvastatin Simvastatin No 1{table QD Simvastati 20 mg 20 mg t_in_th n 20 mg e_eveni ng} buPROPion buPROPion No BID buPROPion HCl 100 MG HCl 100 MG HCl 100 MG Linzess 145 Linzess 145 No Linzess MCG MCG 145 MCG Ferrous Ferrous No 1{table TID Ferrous Sulfate 325 Sulfate 325 t} Sulfate (65 Fe) MG (65 Fe) MG 325 (65 Fe) MG Temovate Temovate No 1{appli BID Temovate 0.05 % 0.05 % cation_ 0.05 % to_affe cted_ar ea} Lumigan Lumigan No 1{drop_ QD Lumigan 0.01 % 0.01 % into_af 0.01 % fected_ eye_in_ the_eve annel} Aspir-81 81 Aspir-81 81 No 1{table QD Aspir-81 MG MG t} 81 MG Uloric 40 Uloric 40 No 1{table Uloric 40 MG MG t} MG Gabapentin Gabapentin No Gabapentin 100 MG 100 MG 100 MG Triamcinolo Triamcinolo No 1{appli BID Triamcinol ne ne cation} one Acetonide Acetonide Acetonide 0.1 % 0.1 % 0.1 % Triamcinolo Triamcinolo No 1{appli BID Triamcinol ne ne cation_ one Acetonide Acetonide to_affe Acetonide 0.1 % 0.1 % cted_ar 0.1 % ea} Lisinopril Lisinopril No QD Lisinopril 10 MG 10 MG 10 MG Furosemide Furosemide No 1{table QD Furosemide 20 MG 20 MG t} 20 MG Simvastatin Simvastatin No 1{table QD Simvastati 20 mg 20 mg t_in_th n 20 mg e_eveni ng} buPROPion buPROPion No BID buPROPion HCl 100 MG HCl 100 MG HCl 100 MG Linzess 145 Linzess 145 No Linzess MCG MCG 145 MCG Ferrous Ferrous No 1{table TID Ferrous Sulfate 325 Sulfate 325 t} Sulfate (65 Fe) MG (65 Fe) MG 325 (65 Fe) MG Temovate Temovate No 1{appli BID Temovate 0.05 % 0.05 % cation_ 0.05 % to_affe cted_ar ea} Lumigan Lumigan No 1{drop_ QD Lumigan 0.01 % 0.01 % into_af 0.01 % fected_ eye_in_ the_eve annel} Aspir-81 81 Aspir-81 81 No 1{table QD Aspir-81 MG MG t} 81 MG Uloric 40 Uloric 40 No 1{table Uloric 40 MG MG t} MG Gabapentin Gabapentin No Gabapentin 100 MG 100 MG 100 MG Triamcinolo Triamcinolo No 1{appli BID Triamcinol ne ne cation} one Acetonide Acetonide Acetonide 0.1 % 0.1 % 0.1 % Triamcinolo Triamcinolo No 1{appli BID Triamcinol ne ne cation_ one Acetonide Acetonide to_affe Acetonide 0.1 % 0.1 % cted_ar 0.1 % ea} Lisinopril Lisinopril No QD Lisinopril 10 MG 10 MG 10 MG Furosemide Furosemide No 1{table QD Furosemide 20 MG 20 MG t} 20 MG Simvastatin Simvastatin No 1{table QD Simvastati 20 mg 20 mg t_in_th n 20 mg e_eveni ng} buPROPion buPROPion No BID buPROPion HCl 100 MG HCl 100 MG HCl 100 MG Linzess 145 Linzess 145 No Linzess MCG MCG 145 MCG Ferrous Ferrous No 1{table TID Ferrous Sulfate 325 Sulfate 325 t} Sulfate (65 Fe) MG (65 Fe) MG 325 (65 Fe) MG Temovate Temovate No 1{appli BID Temovate 0.05 % 0.05 % cation_ 0.05 % to_affe cted_ar ea} Lumigan Lumigan No 1{drop_ QD Lumigan 0.01 % 0.01 % into_af 0.01 % fected_ eye_in_ the_eve annel} Aspir-81 81 Aspir-81 81 No 1{table QD Aspir-81 MG MG t} 81 MG Uloric 40 Uloric 40 No 1{table Uloric 40 MG MG t} MG Gabapentin Gabapentin No Gabapentin 100 MG 100 MG 100 MG Triamcinolo Triamcinolo No 1{appli BID Triamcinol ne ne cation} one Acetonide Acetonide Acetonide 0.1 % 0.1 % 0.1 % Triamcinolo Triamcinolo No 1{appli BID Triamcinol ne ne cation_ one Acetonide Acetonide to_affe Acetonide 0.1 % 0.1 % cted_ar 0.1 % ea} Lisinopril Lisinopril No QD Lisinopril 10 MG 10 MG 10 MG Furosemide Furosemide No 1{table QD Furosemide 20 MG 20 MG t} 20 MG buPROPion buPROPion No BID buPROPion HCl 100 MG HCl 100 MG HCl 100 MG Furosemide Furosemide No 1{table QD Furosemide 20 MG 20 MG t} 20 MG Ferrous Ferrous No 1{table TID Ferrous Sulfate 325 Sulfate 325 t} Sulfate (65 Fe) MG (65 Fe) MG 325 (65 Fe) MG Triamcinolo Triamcinolo No 1{appli BID Triamcinol ne ne cation_ one Acetonide Acetonide to_affe Acetonide 0.1 % 0.1 % cted_ar 0.1 % ea} Simvastatin Simvastatin No 1{table QD Simvastati 20 mg 20 mg t_in_th n 20 mg e_eveni ng} Aspir-81 81 Aspir-81 81 No 1{table QD Aspir-81 MG MG t} 81 MG Lumigan Lumigan No 1{drop_ QD Lumigan 0.01 % 0.01 % into_af 0.01 % fected_ eye_in_ the_eve annel} Gabapentin Gabapentin No Gabapentin 100 MG 100 MG 100 MG Linzess 145 Linzess 145 No Linzess MCG MCG 145 MCG Temovate Temovate No 1{appli BID Temovate 0.05 % 0.05 % cation_ 0.05 % to_affe cted_ar ea} Uloric 40 Uloric 40 No 1{table Uloric 40 MG MG t} MG Triamcinolo Triamcinolo No 1{appli BID Triamcinol ne ne cation} one Acetonide Acetonide Acetonide 0.1 % 0.1 % 0.1 % Lisinopril Lisinopril No QD Lisinopril 10 MG 10 MG 10 MG buPROPion buPROPion No BID buPROPion HCl 100 MG HCl 100 MG HCl 100 MG Furosemide Furosemide No 1{table QD Furosemide 20 MG 20 MG t} 20 MG Ferrous Ferrous No 1{table TID Ferrous Sulfate 325 Sulfate 325 t} Sulfate (65 Fe) MG (65 Fe) MG 325 (65 Fe) MG Triamcinolo Triamcinolo No 1{appli BID Triamcinol ne ne cation_ one Acetonide Acetonide to_affe Acetonide 0.1 % 0.1 % cted_ar 0.1 % ea} Simvastatin Simvastatin No 1{table QD Simvastati 20 mg 20 mg t_in_th n 20 mg e_eveni ng} Aspir-81 81 Aspir-81 81 No 1{table QD Aspir-81 MG MG t} 81 MG Lumigan Lumigan No 1{drop_ QD Lumigan 0.01 % 0.01 % into_af 0.01 % fected_ eye_in_ the_eve annel} Gabapentin Gabapentin No Gabapentin 100 MG 100 MG 100 MG Linzess 145 Linzess 145 No Linzess MCG MCG 145 MCG Temovate Temovate No 1{appli BID Temovate 0.05 % 0.05 % cation_ 0.05 % to_affe cted_ar ea} Uloric 40 Uloric 40 No 1{table Uloric 40 MG MG t} MG Triamcinolo Triamcinolo No 1{appli BID Triamcinol ne ne cation} one Acetonide Acetonide Acetonide 0.1 % 0.1 % 0.1 % Lisinopril Lisinopril No QD Lisinopril 10 MG 10 MG 10 MG buPROPion buPROPion No BID buPROPion HCl 100 MG HCl 100 MG HCl 100 MG Furosemide Furosemide No 1{table QD Furosemide 20 MG 20 MG t} 20 MG Ferrous Ferrous No 1{table TID Ferrous Sulfate 325 Sulfate 325 t} Sulfate (65 Fe) MG (65 Fe) MG 325 (65 Fe) MG Triamcinolo Triamcinolo No 1{appli BID Triamcinol ne ne cation_ one Acetonide Acetonide to_affe Acetonide 0.1 % 0.1 % cted_ar 0.1 % ea} Simvastatin Simvastatin No 1{table QD Simvastati 20 mg 20 mg t_in_th n 20 mg e_eveni ng} Aspir-81 81 Aspir-81 81 No 1{table QD Aspir-81 MG MG t} 81 MG Lumigan Lumigan No 1{drop_ QD Lumigan 0.01 % 0.01 % into_af 0.01 % fected_ eye_in_ the_eve annel} Gabapentin Gabapentin No Gabapentin 100 MG 100 MG 100 MG Linzess 145 Linzess 145 No Linzess MCG MCG 145 MCG Temovate Temovate No 1{appli BID Temovate 0.05 % 0.05 % cation_ 0.05 % to_affe cted_ar ea} Uloric 40 Uloric 40 No 1{table Uloric 40 MG MG t} MG Triamcinolo Triamcinolo No 1{appli BID Triamcinol ne ne cation} one Acetonide Acetonide Acetonide 0.1 % 0.1 % 0.1 % Lisinopril Lisinopril No QD Lisinopril 10 MG 10 MG 10 MG Simvastatin Simvastatin No 1{table QD Simvastati 20 mg 20 mg t_in_th n 20 mg e_eveni ng} buPROPion buPROPion No BID buPROPion HCl 100 MG HCl 100 MG HCl 100 MG Gabapentin Gabapentin No Gabapentin 100 MG 100 MG 100 MG Ferrous Ferrous No 1{table TID Ferrous Sulfate 325 Sulfate 325 t} Sulfate (65 Fe) MG (65 Fe) MG 325 (65 Fe) MG Temovate Temovate No 1{appli BID Temovate 0.05 % 0.05 % cation_ 0.05 % to_affe cted_ar ea} Lumigan Lumigan No 1{drop_ QD Lumigan 0.01 % 0.01 % into_af 0.01 % fected_ eye_in_ the_eve annel} Aspir-81 81 Aspir-81 81 No 1{table QD Aspir-81 MG MG t} 81 MG Uloric 40 Uloric 40 No 1{table Uloric 40 MG MG t} MG Triamcinolo Triamcinolo No 1{appli BID Triamcinol ne ne cation} one Acetonide Acetonide Acetonide 0.1 % 0.1 % 0.1 % Lisinopril Lisinopril No QD Lisinopril 10 MG 10 MG 10 MG Linzess 145 Linzess 145 No Linzess MCG MCG 145 MCG Albuterol Albuterol No Albuterol Sulfate HFA Sulfate HFA Sulfate 108 (90 108 (90 HFA 108 Base) Base) (90 Base) MCG/ACT MCG/ACT MCG/ACT Triamcinolo Triamcinolo No 1{appli BID Triamcinol ne ne cation_ one Acetonide Acetonide to_affe Acetonide 0.1 % 0.1 % cted_ar 0.1 % ea} Furosemide Furosemide No 1{table QD Furosemide 20 MG 20 MG t} 20 MG Uloric 40 Uloric 40 No 1{table Uloric 40 MG MG t} MG Lisinopril Lisinopril No QD Lisinopril 10 MG 10 MG 10 MG Aspir-81 81 Aspir-81 81 No 1{table QD Aspir-81 MG MG t} 81 MG Albuterol Albuterol No Albuterol Sulfate HFA Sulfate HFA Sulfate 108 (90 108 (90 HFA 108 Base) Base) (90 Base) MCG/ACT MCG/ACT MCG/ACT Temovate Temovate No 1{appli BID Temovate 0.05 % 0.05 % cation_ 0.05 % to_affe cted_ar ea} Gabapentin Gabapentin No Gabapentin 100 MG 100 MG 100 MG buPROPion buPROPion No BID buPROPion HCl 100 MG HCl 100 MG HCl 100 MG Lumigan Lumigan No 1{drop_ QD Lumigan 0.01 % 0.01 % into_af 0.01 % fected_ eye_in_ the_eve annel} Linzess 145 Linzess 145 No Linzess MCG MCG 145 MCG Ferrous Ferrous No 1{table TID Ferrous Sulfate 325 Sulfate 325 t} Sulfate (65 Fe) MG (65 Fe) MG 325 (65 Fe) MG Furosemide Furosemide No 1{table QD Furosemide 20 MG 20 MG t} 20 MG Triamcinolo Triamcinolo No 1{appli BID Triamcinol ne ne cation} one Acetonide Acetonide Acetonide 0.1 % 0.1 % 0.1 % Simvastatin Simvastatin No 1{table QD Simvastati 20 mg 20 mg t_in_ n 20 mg e_eveni ng} Uloric 40 Uloric 40 No 1{table Uloric 40 MG MG t} MG Lisinopril Lisinopril No QD Lisinopril 10 MG 10 MG 10 MG Aspir-81 81 Aspir-81 81 No 1{table QD Aspir-81 MG MG t} 81 MG Temovate Temovate No 1{appli BID Temovate 0.05 % 0.05 % cation_ 0.05 % to_affe cted_ar ea} Triamcinolo Triamcinolo No 1{appli BID Triamcinol ne ne cation} one Acetonide Acetonide Acetonide 0.1 % 0.1 % 0.1 % Albuterol Albuterol No Albuterol Sulfate HFA Sulfate HFA Sulfate 108 (90 108 (90 HFA 108 Base) Base) (90 Base) MCG/ACT MCG/ACT MCG/ACT buPROPion buPROPion No BID buPROPion HCl 100 MG HCl 100 MG HCl 100 MG Lumigan Lumigan No 1{drop_ QD Lumigan 0.01 % 0.01 % into_af 0.01 % fected_ eye_in_ the_eve annel} Linzess 145 Linzess 145 No Linzess MCG MCG 145 MCG Ferrous Ferrous No 1{table TID Ferrous Sulfate 325 Sulfate 325 t} Sulfate (65 Fe) MG (65 Fe) MG 325 (65 Fe) MG Furosemide Furosemide No 1{table QD Furosemide 20 MG 20 MG t} 20 MG Gabapentin Gabapentin No Gabapentin 100 MG 100 MG 100 MG Simvastatin Simvastatin No 1{table QD Simvastati 20 mg 20 mg t_in_th n 20 mg e_eveni ng} Furosemide Furosemide No 1{table QD Furosemide 20 MG 20 MG t} 20 MG Linzess 145 Linzess 145 No Linzess MCG MCG 145 MCG Simvastatin Simvastatin No 1{table QD Simvastati 20 mg 20 mg t_in_th n 20 mg e_eveni ng} Lisinopril Lisinopril No QD Lisinopril 10 MG 10 MG 10 MG Albuterol Albuterol No Albuterol Sulfate HFA Sulfate HFA Sulfate 108 (90 108 (90 HFA 108 Base) Base) (90 Base) MCG/ACT MCG/ACT MCG/ACT Temovate Temovate No 1{appli BID Temovate 0.05 % 0.05 % cation_ 0.05 % to_affe cted_ar ea} Aspir-81 81 Aspir-81 81 No 1{table QD Aspir-81 MG MG t} 81 MG Ferrous Ferrous No 1{table TID Ferrous Sulfate 325 Sulfate 325 t} Sulfate (65 Fe) MG (65 Fe) MG 325 (65 Fe) MG buPROPion buPROPion No BID buPROPion HCl 100 MG HCl 100 MG HCl 100 MG Gabapentin Gabapentin No Gabapentin 100 MG 100 MG 100 MG Uloric 40 Uloric 40 No 1{table Uloric 40 MG MG t} MG Triamcinolo Triamcinolo No 1{appli BID Triamcinol ne ne cation} one Acetonide Acetonide Acetonide 0.1 % 0.1 % 0.1 % Lumigan Lumigan No 1{drop_ QD Lumigan 0.01 % 0.01 % into_af 0.01 % fected_ eye_in_ the_eve annel} Furosemide Furosemide No 1{table QD Furosemide 20 MG 20 MG t} 20 MG Linzess 145 Linzess 145 No Linzess MCG MCG 145 MCG Simvastatin Simvastatin No 1{table QD Simvastati 20 mg 20 mg t_in_th n 20 mg e_eveni ng} Lisinopril Lisinopril No QD Lisinopril 10 MG 10 MG 10 MG Albuterol Albuterol No Albuterol Sulfate HFA Sulfate HFA Sulfate 108 (90 108 (90 HFA 108 Base) Base) (90 Base) MCG/ACT MCG/ACT MCG/ACT Temovate Temovate No 1{appli BID Temovate 0.05 % 0.05 % cation_ 0.05 % to_affe cted_ar ea} Aspir-81 81 Aspir-81 81 No 1{table QD Aspir-81 MG MG t} 81 MG Ferrous Ferrous No 1{table TID Ferrous Sulfate 325 Sulfate 325 t} Sulfate (65 Fe) MG (65 Fe) MG 325 (65 Fe) MG buPROPion buPROPion No BID buPROPion HCl 100 MG HCl 100 MG HCl 100 MG Gabapentin Gabapentin No Gabapentin 100 MG 100 MG 100 MG Uloric 40 Uloric 40 No 1{table Uloric 40 MG MG t} MG Triamcinolo Triamcinolo No 1{appli BID Triamcinol ne ne cation} one Acetonide Acetonide Acetonide 0.1 % 0.1 % 0.1 % Lumigan Lumigan No 1{drop_ QD Lumigan 0.01 % 0.01 % into_af 0.01 % fected_ eye_in_ the_eve annel} Albuterol Albuterol No Albuterol Sulfate HFA Sulfate HFA Sulfate 108 (90 108 (90 HFA 108 Base) Base) (90 Base) MCG/ACT MCG/ACT MCG/ACT Lumigan Lumigan No 1{drop_ QD Lumigan 0.01 % 0.01 % into_af 0.01 % fected_ eye_in_ the_eve annel} nexium 20 nexium 20 2021- No 1{capsu QD nexium 20 MG MG 08-24 le} MG 00:00 :00 nexium 20 nexium 20 2021- No 1{capsu QD nexium 20 MG MG 08-24 le} MG 00:00 :00 nexium 20 nexium 20 2021- No 1{capsu QD nexium 20 MG MG 08-24 le} MG 00:00 :00 nexium 20 nexium 20 2021- No 1{capsu QD nexium 20 MG MG 08-24 le} MG 00:00 :00 nexium 20 nexium 20 2021- No 1{capsu QD nexium 20 MG MG 08-24 le} MG 00:00 :00 nexium 20 nexium 20 2021- No 1{capsu QD nexium 20 MG MG 08-24 le} MG 00:00 :00 nexium 20 nexium 20 2021- No 1{capsu QD nexium 20 MG MG 08-24 le} MG 00:00 :00 nexium 20 nexium 20 2- No 1{capsu QD nexium 20 MG MG 08-24 le} MG 00:00 :00 nexium 20 nexium 20 2- No 1{capsu QD nexium 20 MG MG 08-24 le} MG 00:00 :00 nexium 20 nexium 20 2- No 1{capsu QD nexium 20 MG MG 08-24 le} MG 00:00 :00 nexium 20 nexium 20 2021- No 1{capsu QD nexium 20 MG MG 08-24 le} MG 00:00 :00 nexium 20 nexium 20 2021- No 1{capsu QD nexium 20 MG MG 08-24 le} MG 00:00 :00 Immunizations Ordered Filled Immunization Date Status Comments Sourc e Immunization Name Name TDAP 2014-04-08 Completed [facility] TDAP 2014-04-08 Completed [facility]00 [facility] TDAP 2014-04-08 Completed [facility] 00[facility]00 [facility] TDAP 2014-04-08 Completed [facility] 00[facility]00 [facility] TDAP 2014-04-08 Completed [facility] 00[facility]00 [facility] TDAP 2014-04-08 Completed [facility] 00:00:00 [facility] TDAP 2014-04-08 Completed [facility] 00[facility]:00 [facility] TDAP 2014-04-08 Completed [facility] 00:[facility]:00 [facility] TDAP 2014-04-08 Completed [facility] 00:00:00 [facility] TDAP 2014-04-08 Completed [facility] 00:[facility]:00 [facility] TDAP 2014-04-08 Completed [facility] 00:00:00 [facility] TDAP 2014-04-08 Completed [facility] 00:00:00 [facility] TDAP 2014-04-08 Completed [facility] 00:00:00 [facility] TDAP 2014-04-08 Completed [facility] 00:[facility]00 [facility] Vital Signs Vital Name Observation Time Observation Value Comments Source height 2022-09-04 11:00:00 64 [in_i] [facility] weight 2022-09-04 11:00:00 246.4 [lb_av] [facility] temperature 2022-09-04 11:00:00 97.3 [degF] [facility] bmi 2022-09-04 11:00:00 42.29 kg/m2 [facility] oximetry 2022-09-04 11:00:00 98 % [facility] respiratory rate 2022-09-04 11:00:00 16 /min [facility] blood pressure 2022-09-04 11:00:00 132 mm[Hg] [facility] blood pressure 2022-09-04 11:00:00 68 mm[Hg] [facility] diastolic [facility] height 2022-08-23 09:00:00 64 [in_i] [facility] weight 2022-08-23 09:00:00 242 [lb_av] [facility] temperature 2022-08-23 09:00:00 97.3 [degF] Common [facility] bmi 2022-08-23 09:00:00 41.53 kg/m2 [facility] blood pressure 2022-08-23 09:00:00 132 mm[Hg] Common [facility] - systolic [facility] blood pressure 2022-08-23 09:00:00 80 mm[Hg] [facility] height 2022-08-02 09:00:00 64 [in_i] Common [facility] weight 2022-08-02 09:00:00 242 [lb_av] [facility] temperature 2022-08-02 09:00:00 97.3 [degF] [facility] bmi 2022-08-02 09:00:00 41.53 kg/m2 [facility] blood pressure 2022-08-02 09:00:00 136 mm[Hg] [facility] blood pressure 2022-08-02 09:00:00 80 mm[Hg] [facility] height 2022-07-05 10:00:00 64 [in_i] [facility] weight 2022-07-05 10:00:00 240 [lb_av] [facility] temperature 2022-07-05 10:00:00 97.1 [degF] [facility] bmi 2022-07-05 10:00:00 41.19 kg/m2 [facility] blood pressure 2022-07-05 10:00:00 136 mm[Hg] [facility] blood pressure 2022-07-05 10:00:00 84 mm[Hg] [facility] height 2022-05-30 10:00:00 64 [in_i] [facility] weight 2022-05-30 10:00:00 250.0 [lb_av] [facility] temperature 2022-05-30 10:00:00 97.6 [degF] [facility] bmi 2022-05-30 10:00:00 42.91 kg/m2 [facility] oximetry 2022-05-30 10:00:00 97 % [facility] respiratory rate 2022-05-30 10:00:00 18 /min [facility] blood pressure 2022-05-30 10:00:00 136 mm[Hg] [facility] blood pressure 2022-05-30 10:00:00 70 mm[Hg] [facility] height 2022-02-24 10:00:00 64 [in_i] [facility] weight 2022-02-24 10:00:00 244.6 [lb_av] [facility] temperature 2022-02-24 10:00:00 97.2 [degF] [facility] bmi 2022-02-24 10:00:00 41.98 kg/m2 [facility] oximetry 2022-02-24 10:00:00 98 % [facility] respiratory rate 2022-02-24 10:00:00 18 /min [facility] blood pressure 2022-02-24 10:00:00 135 mm[Hg] [facility] - systolic [facility] blood pressure 2022-02-24 10:00:00 82 mm[Hg] [facility] height 2022-01-16 10:20:00 64 [in_i] [facility] weight 2022-01-16 10:20:00 240 [lb_av] [facility] temperature 2022-01-16 10:20:00 97.8 [degF] [facility] bmi 2022-01-16 10:20:00 41.19 kg/m2 [facility] oximetry 2022-01-16 10:20:00 99 % [facility] respiratory rate 2022-01-16 10:20:00 18 /min [facility] blood pressure 2022-01-16 10:20:00 136 mm[Hg] Common [facility] - systolic [facility] blood pressure 2022-01-16 10:20:00 82 mm[Hg] [facility] height 2021-11-16 09:00:00 64 [in_i] [facility] weight 2021-11-16 09:00:00 241 [lb_av] [facility] bmi 2021-11-16 09:00:00 41.36 kg/m2 [facility] height 2021-09-09 08:40:00 64 [in_i] [facility] weight 2021-09-09 08:40:00 241 [lb_av] [facility] bmi 2021-09-09 08:40:00 41.36 kg/m2 [facility] height 2021-08-18 09:00:00 64 [in_i] [facility] weight 2021-08-18 09:00:00 241.0 [lb_av] Common [facility] temperature 2021-08-18 09:00:00 96.9 [degF] Common [facility] bmi 2021-08-18 09:00:00 41.36 kg/m2 [facility] oximetry 2021-08-18 09:00:00 99 % [facility] respiratory rate 2021-08-18 09:00:00 18 /min [facility] blood pressure 2021-08-18 09:00:00 120 mm[Hg] Common [facility] systolic [facility] blood pressure 2021-08-18 09:00:00 74 mm[Hg] Common [facility] diastolic [facility] Systolic blood 2021-06-15 14:30:00 131 mm[Hg] [facility] Diastolic blood 2021-06-15 14:30:00 75 mm[Hg] Unive rsity [facility] Heart rate 2021-06-15 14:25:00 78 /min [facility] Body temperature 2021-06-15 14:25:00 [facility] 2021-06-15 14:25:00 18 /[facility] 2021-06-15 14:25:00 170.2 cm [facility] Body weight 2021-06-15 14:25:00 113.671 kg [facility] BMI 2021-06-15 14:25:00 39.25 kg/m2 [facility] Systolic blood 2021-02-24 19:24:00 130 mm[Hg] [facility] Diastolic blood 2021-02-24 19:24:00 80 mm[Hg] [facility] Heart rate 2021-02-24 19:24:00 82 /min [facility] Respiratory rate 2021-02-24 19:24:00 16 /min [facility] Body height 2021-02-24 19:24:00 170.2 cm [facility] Body weight 2021-02-24 19:24:00 112.583 kg [facility] BMI 2021-02-24 19:24:00 38.87 kg/m2 [facility] Systolic blood 2021-01-13 13:54:00 125 mm[Hg] [facility] Diastolic blood 2021-01-13 13:54:00 69 mm[Hg] [facility] Heart rate 2021-01-13 13:54:00 75 /min [facility] Body temperature 2021-01-13 13:54:00 36.67 [place] [facility] Respiratory rate 2021-01-13 13:54:00 16 /min [facility] Body height 2021-01-13 13:54:00 170.2 cm [facility] Body weight 2021-01-13 13:54:00 109.045 kg [facility] BMI 2021-01-13 13:54:00 37.65 kg/m2 [facility] BMI 2020-10-28 19:18:00 39.12 kg/m2 [facility] Systolic blood 2020-10-28 19:18:00 126 mm[Hg] [facility] Diastolic blood 2020-10-28 19:18:00 75 mm[Hg] [facility] Heart rate 2020-10-28 19:18:00 74 /min [facility] Body temperature 2020-10-28 19:18:00 36.06 [facility] Respiratory rate 2020-10-28 19:18:00 16 /min [facility] Body height 2020-10-28 19:18:00 170.2 cm [facility] Body weight 2020-10-28 19:18:00 113.309 kg [facility] BMI 2020-10-28 19:18:00 39.12 kg/m2 [facility] Systolic blood 2020-10-28 19:18:00 126 mm[Hg] [facility] pressure Medicine Diastolic blood 2020-10-28 19:18:00 75 mm[Hg] [facility] Medicine Heart rate 2020-10-28 19:18:00 74 /min [facility] Medicine Body temperature 2020-10-28 19:18:00 36.06 [facility] Respiratory rate 2020-10-28 19:18:00 16 /min [facility] Body height 2020-10-28 19:18:00 170.2 cm [facility]lege of [facility] Body weight 2020-10-28 19:18:00 113.309 kg [facility]lege of [facility] Systolic blood 2020-06-10 19:59:00 119 mm[Hg] [facility] Medicine Diastolic blood 2020-06-10 19:59:00 75 mm[Hg] [facility] Medicine Heart rate 2020-06-10 19:59:00 71 /min [facility]lege of [facility] Body temperature 2020-06-10 19:59:00 36.67 [facility] Respiratory rate 2020-06-10 19:59:00 16 /min [facility] Body height 2020-06-10 19:59:00 170.2 cm [facility] of [facility] Body weight 2020-06-10 19:59:00 112.492 kg [facility] BMI 2020-06-10 19:59:00 38.84 kg/m2 [facility] Systolic blood 2020-06-10 19:59:00 119 mm[Hg] [facility] of pressure Medicine Diastolic blood 2020-06-10 19:59:00 75 mm[Hg] [facility] pressure Medicine Heart rate 2020-06-10 19:59:00 71 /min [facility] Body temperature 2020-06-10 19:59:00 36.67 [facility] Respiratory rate 2020-06-10 19:59:00 16 /min [facility] Body height 2020-06-10 19:59:00 170.2 cm [facility] ol[facility] of [facility] Body weight 2020-06-10 19:59:00 112.492 kg [facility] BMI 2020-06-10 19:59:00 38.84 kg/m2 [facility] Systolic blood 2020-04-21 18:39:00 150 mm[Hg] [facility] of pressure Medicine Diastolic blood 2020-04-21 18:39:00 88 mm[Hg] [facility] of pressure Medicine Heart rate 2020-04-21 18:39:00 78 /min [facility] Body height 2020-04-21 18:39:00 170.2 cm [facility] of [facility] Body weight 2020-04-21 18:39:00 111.494 kg [facility] Medicine BMI 2020-04-21 18:39:00 38.50 kg/m2 [facility] Systolic blood 2020-04-21 18:39:00 150 mm[Hg] [facility] of pressure Medicine Diastolic blood 2020-04-21 18:39:00 88 mm[Hg] [facility] of pressure Medicine Heart rate 2020-04-21 18:39:00 78 /min [facility] Body height 2020-04-21 18:39:00 170.2 cm [facility] Body weight 2020-04-21 18:39:00 111.494 kg [facility] BMI 2020-04-21 18:39:00 38.50 kg/m2 [facility] Procedures Procedure Date / Time Performing Clinician Source Performed US PELVIS COMPLETE WITH 2021-05-11 15:20:44 Shilpa Bourgeois [facility] TRANSVAGINAL Medical Branch ASSIGNMENT OF BENEFITS 2021-05-11 13:41:33 Doctor Unassigned, Un [facility] [facility] CBC W/AUTO DIFF WITH 2021-02-24 14:49:02 [facility] COMPREHENSIVE METABOLIC 2021-02-24 14:49:02 [facility] Medicine RANDOM URINE 2021-02-24 14:49:02 [facility] ge of PROTEIN/CREATININE Medicine URINALYSIS AUTO W/SCOPE 2021-02-24 14:49:02 [facility] KAPPA/LAMBDA LIGHT CHAINS, 2021-02-24 14:49:02 [facility] WITH RATIO Medicine PROTEIN ELECTROPHORESIS 2021-02-24 14:49:02 [facility] SERUM Medicine EXTERNAL PROVIDER RECORDS 2021-01-24 05:01:00 Doctor Unassigned, [facility] [facility] INSURANCE CORRESPONDENCE 2021-01-19 05:01:00 Doctor Unassigned, [facility] AUTHORIZATION TO RELEASE 2021-01-13 05:01:00 Doctor Unassigned, [facility] PHI TO [facility] Plan of Care Planned Activity Planned Date Details Comments Source Diagnostic Test 2020-06-10 ECHO,COMPLETE WITH Expected: [facility] Pending 00:00:00 SALINE [code = 54881-6] 06/10/2020, of M edicine Expires: 06/10/2021 Future Scheduled PTH INTACT [code = Ordered: [facility] Test 2731-8] 10/28/2020 of Medicine Future Scheduled VITAMIN D 25 HYDROXY Ordered: [facility] Test [code = 1989-3] 10/28/2020 of [facility] Future Scheduled PHOSPHORUS [code = Ordered: [facility] Test 2777-1] 10/28/2020 of Medicine Future Scheduled CBC W/AUTO DIFF WITH Ordered: [facility] Test PLATELETS [code = 10/28/2020 of Medicin e 91888-1] Future Scheduled PROTEIN ELECTROPHORESIS Ordered: [facility] Test SERUM [code = 46927-4] 10/28/2020 of Me dicine Future Scheduled FREE LIGHT CHAINS-SERUM Ordered: [facility] Test [code = NOCPT] 10/28/2020 of Medicine Future Scheduled HEPATITIS PANEL [code = Ordered: [facility] Test 55756-7] 10/28/2020 of Medicine Future Scheduled HAROON AUTOIMMUNE PROFILE Ordered: [facility] Test [code = NOCPT] 10/28/2020 of [facility] Future Scheduled COLON CANCER SCREENING: [facility] Test COLONOSCOPY [code = of Medic ine COLON CANCER SCREENING: COLONOSCOPY] Future Scheduled COVID-19 Vaccine [facility] Test Evaluation [code = of Medici ne COVID-19 Vaccine Evaluation] Future Scheduled MAMMOGRAM ANNUAL [code B [facility] Test = MAMMOGRAM ANNUAL] of Medic ine Future Scheduled HEPATITIS C SCREENING [employer] Test [code = HEPATITIS C of Medic ine SCREENING] Future Scheduled HIV SCREENING [code = [employer] Test HIV SCREENING] of Medicine Future Scheduled CERVICAL CANCER [facility] Test SCREENING 3 YEAR FOLLOW of M edicine UP [code = CERVICAL CANCER SCREENING 3 YEAR FOLLOW UP] Future Scheduled ZOSTER VACCINE (1 of 2) [facility] Test [code = ZOSTER VACCINE of Me dicine (1 of 2)] Future Scheduled MEDICARE AWV (Initial) [facility] Test [code = MEDICARE AWV of Medi cine (Initial)] Future Scheduled FLU VACCINE > 6 MONTHS [facility] Test [code = FLU VACCINE > 6 of M edicine MONTHS] Future Scheduled BMI FOLLOW UP PLAN [facility] [place] Test [code = BMI FOLLOW UP of Med icine PLAN] Future Scheduled TETANUS SHOT (ADULT) [place] Test [code = TETANUS SHOT of Medi cine (ADULT)] Future Scheduled CBC W/AUTO DIFF WITH Ordered: [facility] Test PLATELETS [code = 02/24/2021 of Medicin e 97168-8] Future Scheduled COMPREHENSIVE METABOLIC Ordered: [facility] Test PANEL [code = 82588-4] 02/24/2021 of Me dicine Future Scheduled RANDOM URINE Ordered: [facility] ege Test PROTEIN/CREATININE 02/24/2021 of Medici ne [code = 2890-2] Future Scheduled URINALYSIS AUTO W/SCOPE Ordered: [facility] Test [code = 54240-5] 02/24/2021 of Medicine Future Scheduled KAPPA/LAMBDA LIGHT Ordered: [facility] Test CHAINS, FREE WITH RATIO 02/24/2021 of M edicine [code = 24023-5] Future Scheduled PROTEIN ELECTROPHORESIS Ordered: [facility] Test SERUM [code = 01580-6] 02/24/2021 of Me dicine Future Scheduled Screening for malignant [facility] Test neoplasm of colon of Medicin e (procedure) [code = 421621358] Future Scheduled Screening for malignant [facility] Test neoplasm of breast of Medici ne (procedure) [code = 412928314] Future Scheduled COVID-19 Vaccine (1) [facility] Test [code = COVID-19 of Medicine Vaccine (1)] Future Scheduled Human immunodeficiency [facility] Test virus screening of Medicine (procedure) [code = 418297252] Future Scheduled Screening for malignant [facility] Test neoplasm of cervix of Medici ne (procedure) [code = 155108697] Future Scheduled ZOSTER VACCINE (1 of 2) [facility] Test [code = ZOSTER VACCINE of [...] edicine MONTHS] Future Scheduled TETANUS SHOT (ADULT) [place] [employer] Test [code = TETANUS SHOT of Medi cine (ADULT)] Future Scheduled COMPRESSION STOCKING Ordered: [facility] Test 15-20MM [code = NOCPT] 04/21/2020 of Me dicine Future Scheduled COLON CANCER SCREENING: [facility] Test COLONOSCOPY [code = of Medic ine COLON CANCER SCREENING: COLONOSCOPY] Future Scheduled MAMMOGRAM ANNUAL [code B [facility] Test = MAMMOGRAM ANNUAL] of Medic ine Future Scheduled TETANUS SHOT (ADULT) [place] [facility] [employer] Test [code = TETANUS SHOT of Medi cine (ADULT)] Future Scheduled BMI FOLLOW UP PLAN [place] [employer] Test [code = BMI FOLLOW UP of Med icine PLAN] Future Scheduled HEPATITIS C SCREENING [employer] Test [code = HEPATITIS C of Medic ine SCREENING] Future Scheduled HIV SCREENING [code = [employer] [facility] HIV SCREENING] of Medicine Future Scheduled CERVICAL CANCER [facility] Test SCREENING 3 YEAR FOLLOW of M edicine UP [code = CERVICAL CANCER SCREENING 3 YEAR FOLLOW UP] Future Scheduled MEDICARE IPPE (WELCOME [facility] Test TO MEDICARE) [code = of Medi cine MEDICARE IPPE (WELCOME TO MEDICARE)] Future Scheduled FLU VACCINE > 6 MONTHS [employer] Test [code = FLU VACCINE > 6 of M edicine MONTHS] Future Scheduled CBC W/AUTO DIFF WITH Ordered: [facility] Test PLATELETS [code = 06/10/2020 of Medicin e 66390-2] Future Scheduled COMPREHENSIVE METABOLIC Ordered: [facility] Test PANEL [code = 61655-7] 06/10/2020 of Me dicine Future Scheduled RANDOM URINE Ordered: [facility] Test PROTEIN/CREATININE 06/10/2020 of Medici ne [code = 2890-2] Future Scheduled URINALYSIS AUTO W/SCOPE Ordered: [facility] Test [code = 20227-2] 06/10/2020 of Medicine Future Scheduled TSH [code = 68171-8] Ordered: [place] [employer] Test 06/10/2020 of Medicine Future Scheduled T4 FREE [code = 3024-7] Ordered: [facility] Test 06/10/2020 of Medicine Future Scheduled COLON CANCER SCREENING: [facility] Test COLONOSCOPY [code = of Medic ine COLON CANCER SCREENING: COLONOSCOPY] Future Scheduled MAMMOGRAM ANNUAL [code [facility] Test = MAMMOGRAM ANNUAL] of Medic ine Future Scheduled TETANUS SHOT (ADULT) [place] [employer] Test [code = TETANUS SHOT of Medi cine (ADULT)] Future Scheduled HEPATITIS C SCREENING [employer] Test [code = HEPATITIS C of Medic ine SCREENING] Future Scheduled HIV SCREENING [code = [employer] [facility] HIV SCREENING] of Medicine Future Scheduled CERVICAL CANCER [facility] C [facility]lege Test SCREENING 3 YEAR FOLLOW of M edicine UP [code = CERVICAL CANCER SCREENING 3 YEAR FOLLOW UP] Future Scheduled ZOSTER VACCINE (1 of 2) [facility] Test [code = ZOSTER VACCINE of Me dicine (1 of 2)] Future Scheduled MEDICARE IPPE (WELCOME [employer] [facility] TO MEDICARE) [code = of Medi cine MEDICARE IPPE (WELCOME TO MEDICARE)] Future Scheduled FLU VACCINE > 6 MONTHS [employer] Test [code = FLU VACCINE > 6 of M edicine MONTHS] Future Scheduled BMI FOLLOW UP PLAN [facility] [employer] Test [code = BMI FOLLOW UP of Med icine PLAN] Future Scheduled BASIC METABOLIC PANEL Ordered: [employer] Test [code = 08124-6] 10/28/2020 of Medicine Future Scheduled URIC ACID [code = Ordered: [facility] Test 3084-1] 10/28/2020 of Medicine Future Scheduled US RENAL BILATERAL 1 Occurrences [facility] or College Test [code = 59467] starting of Medicine 10/28/2020 until 10/28/2021 Encounters Start End Encounter Admission Attending Care Care Encounter Source Date/Time Date/Time Type Type Clinicians Facility Department ID 2022-08-31 Outpatient Traci Bell [facility] [id number] Common 11:26:00 [id number] [facility] 2022-08-02 Outpatient Traci Bell [facility] [id number] 2 Common 09:07:01 [facility] 2022-07-06 Outpatient Bell, Na STLMLC STLMLC [id number] Common 09:32:00 [facility] 2022-07-05 Outpatient Bell, Na STLMLC STLMLC [id number] Common 10:27:00 [facility] 2022-06-27 Outpatient Bell, Na STLMLC STLMLC [id number] Common 09:27:01 [facility] 2022-05-26 Outpatient Bell, Na STLMLC STLMLC [id number] 2 Common 10:09:00 [facility] 2022-02-22 Outpatient Bell, Na STLMLC STLMLC [id number] 2 Common 08:24:02 [facility] 2022-01-16 Outpatient Bell, Na STLMLC STLMLC [id number] Common 10:10:00 [facility] 2021-11-16 Outpatient Bell, Na STLMLC STLMLC [id number] 2 Common 14:32:02 [facility] 2021-11-16 Outpatient Bell, Na STLMLC STLMLC [id number] 2 Common 14:31:06 [facility] 2021-11-16 Outpatient Bell, Na STLMLC STLMLC [id number] 2 Common 13:09:20 [facility] 2021-11-16 Outpatient Bell, Na STLMLC STLMLC [id number] 2 Common 12:39:12 [id number] [facility] 2021-11-16 Outpatient Bell, Na STLMLC STLMLC [id number] 2 Common 12:34:08 [facility] 2021-11-16 Outpatient Bell, Na STLMLC STLMLC [id number] 2 Common 12:25:21 [facility] 2021-11-16 Outpatient Bell, Na STLMLC STLMLC [id number] 2 Common 12:25:09 [id number] [facility] 2021-11-16 Outpatient Eugenie, Na STLMLC STLMLC [id number] 2 Common 12:14:55 [id number] [facility] 2021-11-16 Outpatient Walter Kin STLMLC STLMLC [id number] Common 12:14:45 [id number] [facility] 2021-11-16 Outpatient Walter Kin STLMLC STLMLC [id number] Common 12:11:09 [id number] [facility] 2021-11-16 Outpatient Azar Watson STLMLC STLMLC [id number] Common 12:08:17 [id number] [facility] 2021-11-16 Outpatient Walter Kin STLMLC STLMLC [id number] 02 Common 12:06:49 [id number] [facility] 2021-11-16 Outpatient STLMLC STLMLC [id number] Common 12:01:10 [id number] [facility] 2021-11-16 Outpatient Millender, STLMLC STLMLC [id number] Common 11:27:56 Marissa [id number] [facility] 2021-11-16 Outpatient Millender, STLMLC STLMLC [id number] Common 11:13:44 Marissa [id number] [facility] 2021-11-16 Outpatient Millender, STLMLC STLMLC [id number] Common 11:09:05 Marissa [id number] [facility] 2021-11-16 Outpatient Millender, STLMLC STLMLC [id number] Common 11:06:45 Marissa [id number] [facility] 2022-09-04 2022-09-04 OFFICE STLMLC STLMLC [id number] Co mmon 00:00:00 00:00:00 VISIT Spirit ESTAB PT - CHI LEVEL 4 [facility] 2022-08-23 2022-08-23 OFFICE STLMLC STLMLC [id number] Co mmon 00:00:00 00:00:00 VISIT EST Spir it PT LEVEL 3 - CHI [facility] 2022-08-02 2022-08-02 OFFICE STLMLC STLMLC [id number] Co mmon 00:00:00 00:00:00 VISIT EST Spir it PT LEVEL 3 - CHI [facility] 2022-07-05 2022-07-05 OFFICE STLMLC STLMLC [id number] Co mmon 00:00:00 00:00:00 VISIT NEW Spir it PT LEVEL 3 - [facility] 2022-06-22 2022-06-22 (TEL) STLMLC STLMLC [id number] Co mmon 00:00:00 00:00:00 [facility] 2022-06-20 2022-06-20 (TEL) STLMLC STLMLC [id number] Co mmon 00:00:00 00:00:00 [facility] 2022-06-15 2022-06-15 Outpatient Ranjit [facility] [id number] Univers 09:30:00 09:30:00 SHILPA gamino [facility] 2022-05-31 2022-05-31 (TEL) STLMLC STLMLC [id number] Co mmon 00:00:00 00:00:00 [facility] 2022-05-30 2022-05-30 OFFICE STLMLC STLMLC [id number] Co mmon 00:00:00 00:00:00 VISIT [facility] PT - [facility] LEVEL 4 [facility] 2022-05-22 2022-05-22 (TEL) STLMLC STLMLC [id number] Co mmon 00:00:00 00:00:00 [facility] 2022-05-06 2022-05-06 Outpatient Adams_R DMG DMG [id number] [facility]oted 10:01:00 10:01:00 0716 [facility] 2022-03-29 2022-03-29 (TEL) STLMLC STLMLC [id number] Co mmon 00:00:00 00:00:00 [facility] 2022-03-21 2022-03-21 (TEL) STLMLC STLMLC [id number] Co mmon 00:00:00 00:00:00 [facility] 2022-03-16 2022-03-16 (TEL) STLMLC STLMLC [id number] Co mmon 00:00:00 00:00:00 [facility] 2022-03-09 2022-03-09 (TEL) STLMLC STLMLC [id number] Co mmon 00:00:00 00:00:00 [facility] 2022-03-02 2022-03-02 (TEL) STLMLC STLMLC [id number] Co mmon 00:00:00 00:00:00 [facility] 2022-02-24 2022-02-24 OFFICE STLMLC STLMLC [id number] Co mmon 00:00:00 00:00:00 VISIT [facility] PT [facility] LEVEL 4 [facility] 2022-01-18 2022-01-18 (TEL) STLMLC STLMLC [id number] Co mmon 00:00:00 00:00:00 [facility] 2022-01-16 2022-01-16 OFFICE STLMLC STLMLC [id number] Co mmon 00:00:00 00:00:00 VISIT EST Spir it PT LEVEL 3 [facility] 2021-12-16 2021-12-16 (TEL) STLMLC STLMLC [id number] Co mmon 00:00:00 00:00:00 [facility] 2021-12-13 2021-12-13 OL DIG E/M STLMLC STLMLC [id number] Common 00:00:00 00:00:00 SVC 11-20 Spir it MIN [facility] 2021-12-12 2021-12-12 (TEL) STLMLC STLMLC [id number] Co mmon 00:00:00 00:00:00 [facility] 2021-11-23 2021-11-23 (TEL) STLMLC STLMLC [id number] Co mmon 00:00:00 00:00:00 [facility] 2021-11-16 2021-11-16 OL DIG E/M STLMLC STLMLC [id number] Common 00:00:00 00:00:00 [facility] 11-20 Spir it MIN - [facility] 2021-10-31 2021-10-31 Outpatient Adams_R DMG [place] [id number] [facility] 09:57:00 09:57:00 0110 [facility] 2021-10-18 2021-10-18 Outpatient DMG [place] [id number] [facility] 12:00:00 12:00:00 1228 [facility] 2021-09-09 2021-09-09 OL DIG E/M STLMLC STLMLC [id number] Common 00:00:00 00:00:00 [facility] 21+ [facility] 2021-08-29 2021-08-29 Outpatient DMG [place] [id number] [facility] 11:02:00 11:02:00 1108 [facility] 2021-08-18 2021-08-18 OFFICE STLMLC STLMLC [id number] Co mmon 00:00:00 00:00:00 VISIT EST Spir it PT LEVEL 3 [facility] 2021-08-18 2021-08-18 (TEL) STLMLC STLMLC [id number] Co mmon 00:00:00 00:00:00 [facility] 2021-08-18 2021-08-18 (TEL) STLMLC STLMLC [id number] Co mmon 00:00:00 00:00:00 [facility] 2021-08-15 2021-08-15 (TEL) STLMLC STLMLC [id number] Co mmon 00:00:00 00:00:00 [facility] 2021-07-08 2021-07-08 (TEL) STLMLC STLMLC [id number] Co mmon 00:00:00 00:00:00 [facility] 2021-06-21 2021-06-21 Outpatient STLMLC STLMLC [id number] Common 00:00:00 00:00:00 [facility] 2021-06-15 2021-06-15 Office Christelle [facility] [id number] Univers 09:22:29 09:49:00 Visit Shilpa Mandujano 350.1.13.10 i ty [facility] 4.2.7.2.686 [facility] [id number] Pa dical [facility] [address] [facility] 2021-06-15 2021-06-15 [facility] [id number] Univers 09:00:00 09:00:00 SHILPA ity [facility] 2021-06-10 2021-06-10 Outpatient STLMLC STLMLC [id number] Common 00:00:00 00:00:00 [facility] 2021-06-10 2021-06-10 Outpatient STLMLC STLMLC [id number] Common 00:00:00 00:00:00 [facility] 2021-05-11 2021-05-11 [facility] [id number] [facility] 08:42:39 23:59:00 Encounter Shilpa Mandujano 350.1.13.10 ity [facility] 4.2.7.2.686 [facility] [id number] [facility] [address] [place] 2021-05-11 2021-05-11 Outpatient [facility] [id number] Univers 00:00:00 00:00:00 [facility]-11 2021-05-11 Orders Doctor WHEELER [id number] Univers 00:00:00 00:00:00 Only Unassigned, KODY 350.1.13.10 ity of [place] [facility] 4.2.7.2.686 Donovan as [phone] [facility] [address] 2021-03-23 2021-03-23 Outpatient STLMLC STLMLC [id number] Common 00:00:00 00:00:00 [facility] 2021-02-24 2021-02-24 Office SEGUNDO WILLIS [id number] [facility] 14:21:19 14:59:27 Visit JANNYIN AMBULATOR 350.1.13.21 College Y 0.2.7.2.686 of [id number] Medi madeline 335 e 2021-01-26 2021-01-26 Outpatient STLMLC STLC [id number] Common 00:00:00 00:00:00 [facility] 2021-01-24 2021-01-24 Orders Doctor LIAM 1.2.840.114 [id number] Univers 00:00:00 00:00:00 Only Unassigned, KODY 350.1.13.10 [facility] [place] [facility] 4.2.7.2.686 Donovan as [phone] [facility] [address] 2021-01-19 2021-01-19 Orders Doctor LIAM 1.2.840.114 [id number] Univers 00:00:00 00:00:00 Only Unassigned, OKDY 350.1.13.10 [facility] [place] 4.2.7.2.686 Donovan as [phone] [facility] [address] [place] 2021-01-13 2021-01-13 Office Christelle [facility] [id number] Univers 08:35:32 09:20:50 Visit Shilpa Mandujano 350.1.13.10 i ty [place]2.[place] [phone] Pa dical [address] 2021-01-13 2021-01-13 Outpatient R CHRISTELLE [facility] [id number] Univers 09:00:00 09:00:00 SHILPA gamino [facility] 2021-01-13 2021-01-13 Orders Doctor LIAM 1.2.840.114 [id number] Univers 00:00:00 00:00:00 Only Unassigned, KODY 350.1.13.10 [facility] [place] [facility] 4.2.7.2.686 Donovan as [phone] [facility] [address] [place] 2021-01-13 2021-01-13 Letter Doctor WHEELER 1.2.840.114 [id number] Univers 00:00:00 00:00:00 (Out) Unassigned, KODY 350.1.13.10 [facility] [place] [facility] 4.2.7.2.686 Donovan as [phone] [facility] [address] 2021-01-13 2021-01-13 Letter Doctor LIAM 1.2.840.114 [id number] Univers 00:00:00 00:00:00 (Out) Unassigned, KODY 350.1.13.10 ity of [facility] 4.2.7.2.686 Donovan as [phone] [facility] [address] 2021-01-04 2021-01-04 Case Christelle [facility] [id number] Univers 00:00:00 00:00:00 Management Shilpa Mandujano 350.1.13.10 [place] [phone] Pa dic[address] 2021-01-03 2021-01-03 Outpatient STLMLC STLMLC [id number] Common 00:00:00 00:00:00 [facility] 2020-12-21 2020-12-21 Outpatient STLMLC STLMLC [id number] Common 00:00:00 00:00:00 [facility] 2020-11-16 2020-11-16 Outpatient STLMLC STLMLC [id number] Common 00:00:00 00:00:00 [facility] 2020-11-10 2020-11-10 Outpatient STLMLC STLMLC [id number] Common 00:00:00 00:00:00 [facility] 2020-10-28 2020-10-28 Office SEGUNDO Willis [id number] [place] [address] 12:28:11 13:52:06 Visit Jingyin AMBULATOR 350.1.13.21 College Y 0.2.7.2.686 of [id number] [facility] 335 e 2020-10-28 2020-10-28 Office SEGUNDO Willis 1.2.840.114 [id number] 12:28:11 13:52:06 Visit Jingyin AMBULATOR 350.1.13.21 Y 0.2.7.2.686 [id number] [facility] 2020-10-12 2020-10-12 Outpatient STLMLC STLMLC [id number] Common 00:00:00 00:00:00 [facility] 2020-10-11 2020-10-11 Outpatient STLMLC STLMLC [id number] Common 00:00:00 00:00:00 [facility] 2020-09-30 2020-09-30 Outpatient [facility] STL[facility] [id number] Common 00:00:00 00:00:00 [facility] 2020-09-29 2020-09-29 Outpatient [facility] STL[facility] [id number] Common 00:00:00 00:00:00 [facility] 2020-09-14 2020-09-14 Outpatient [facility] ST[facility] [id number] Common 00:00:00 00:00:00 [facility] 2020-09-14 2020-09-14 Outpatient [facility] STLMLC [id number] Common 00:00:00 00:00:00 [facility] 2020-09-14 2020-09-14 Outpatient [facility] STL[facility]C [id number] Common 00:00:00 00:00:00 [facility] 2020-09-13 2020-09-13 Outpatient [facility]C STL[facility]C [id number] Common 00:00:00 00:00:00 [facility] 2020-06-24 2020-06-[address] [facility] [address] [id number] Common 09:50:00 09:50:00 [facility] 2020-06-10 2020-06-10 Office SEGUNDO Willis [id number] [place] [address] 14:57:11 15:34:42 Visit Jingyin AMBULATOR [id number] College Y [id number] of [id number] [facility] 335 e 2020-06-10 2020-06-10 Office SEGUNDO Willis [id number] 14:57:11 15:34:42 Visit Jingyin AMBULATOR [id number] Y [id number] [facility] 2020-06-09 2020-06-09 [facility] [id number] Common 16:32:00 16:32:[address] [facility] [address] [facility] 2020-05-28 2020-05-28 [facility] [id number] Common 11:43:00 11:43:00 t [facility] [address] [facility] 2020-04-21 2020-04-21 Office SEGUNDO Sheppard [id number] 81 [facility] 13:26:16 15:01:50 Visit Jayer AMBULATOR [id number] College Y [id number] of [id number] [facility] 825 e 2020-04-21 2020-04-21 Office SEGUNDO Sheppard [id number] 13:26:16 15:01:50 Visit Jayer AMBULATOR [id number] Y [id number] 2020-04-13 2020-04-13 [facility] [id number] Common 09:20:00 09:20:00 t [facility] [address] [facility] 2020-03-10 2020-03-10 [facility] [id number] Common 16:01:00 16:01:00 t [facility] [address] [facility] 2020-01-25 2020-01-25 [facility] [id number] Common 13:49:00 13:49:00 t [facility] [address] [facility] 2020-01-02 2020-01-02 [facility] [id number] Common 09:45:00 09:45:00 t [facility] [address] [facility] 2019-12-02 2019-12-02 [facility] [id number] Common 09:15:00 09:15:00 t [facility] [address] [facility] 2019-11-17 2019-11-17 [facility] [id number] Common 14:50:00 14:50:00 t [facility] [address] [facility] 2019-09-26 2019-09-26 [facility] [id number] Common 10:00:00 10:00:[address] [facility] 2019-07-22 2019-07-22 [facility] [id number] Common 11:05:00 11:05:[address] [facility] 2019-06-30 2019-06-30 [facility] [id number] Common 10:20:00 10:20:[address] [facility] 2019-04-17 2019-04-17 [facility] [id number] Common 20:26:00 20:26:[address] [facility] 2019-04-16 2019-04-16 [facility] [id number] Common 15:58:00 15:58:[address] [facility] 2019-03-03 2019-03-03 [facility] [id number] Common 13:58:00 13:58:[address] [facility] 2019-01-17 2019-01-17 [facility] [id number] Common 15:47:00 15:47:[address] [facility] 2019-01-17 2019-01-17 [facility] [id number] Common 11:15:00 11:15:[address] [facility] 2019-01-10 2019-01-10 [facility] [id number] Common 01:41:00 01:41:[address] [facility] 2019-01-08 2019-01-08 [facility] [id number] Common 10:30:00 10:30:[address] [facility] 2018-12-26 2018-12-26 [facility] [id number] Common 14:36:00 14:36:[address] [facility] 2018-12-25 2018-12-25 [facility] [id number] Common 11:15:00 11:15:[address] [facility] 2018-11-12 2018-11-12 [facility] [id number] Common 09:15:00 09:15:[address] [facility] 2018-10-09 2018-10-09 [facility] [id number] Common 08:00:00 08:00:[address] [facility] 2018-07-30 2018-07-30 [facility] [id number] Common 15:53:00 15:53:[address] [facility] 2018-07-29 2018-07-29 [facility] [id number] Common 09:10:00 09:10:[address] [facility] 2018-05-28 2018-05-28 [facility] [id number] Common 11:00:00 11:00:[address] [facility] 2018-04-10 2018-04-10 [facility] [id number] Common 08:24:00 08:24:[address] [facility] 2018-04-02 2018-04-02 [facility] [id number] Common 09:00:00 09:00:[address] [facility] 2018-04-01 2018-04-01 [facility] [id number] Common 14:33:00 14:33:[address] [facility] 2018-03-21 2018-03-21 [facility] [id number] Common 08:55:00 08:55:00 [facility] [address] [facility] 2018-03-19 2018-03-19 Outpatient Danielle Metzger [id number] Common 09:30:00 09:30:00 t [facility] [address] [facility] Results Test Description Test Test Results Result Source Time Comments Comments US PELVIS 2021-04-21. ?Simple cyst in Unive rsity of COMPLETE WITH 21 the left ovary [facility] TRANSVAGINAL 23:04:56 measuring up to 3.6 Bra nch cm, requires annualultrasound follow-up. 2. ?Uterine fibroid measuring up to 2.1 cm. Other smaller multiple fibroidsare suspected. 3. ?Minimal nonspecific free fluid is seen in the pelvis. Preliminary Report Dictated by Resident: Wei Hall ?MD [place]., have reviewed this study and agree with theabove report.EXAM: US PELVIS COMPLETE WITH TRANSVAGINAL HISTORY: 60 years-old Female; hx of ovarian cyst . . TECHNIQUE: Transabdominal and transvaginal ultrasound imaging and colorDoppler evaluation of the pelvis was performed. [employer] images wereobtained for the record. COMPARISON: None [...] colorDoppler evaluation of the pelvis was performed. [employer] images wereobtained for the record. COMPARISON: NoneFINDINGS:STATEMENT [...] this study and agree with theabove report. SARS-COV 2 SARS-COV 2 Antigen Antigen
[2022-10-26] MEDS ORDERED: ACETAMINOPHEN 325 MG TABLET ONE (20:32)
[2022-10-26] MEDS ORDERED: BENZONATATE 100 MG CAP PO ONE (20:36)
[2022-10-26 21:29] LABS: SARS-COV-2 RT PCR NEGATIVE (NEGATIVE)
--- NOTE | 2022-10-26 22:14 | RAD REPORT ---
EXAM DESCRIPTION: RAD - Chest Pa And Lat (2 Views) - 10/26/2022 10:06 pm CLINICAL HISTORY: COUGH Chest pain. COMPARISON: Chest Single View dated 03/22/2022; Chest Single View dated 09/24/2020; Chest Pa And Lat (2 Views) dated 09/19/2018; Chest Pa And Lat (2 Views) dated 01/25/2018 FINDINGS: The lungs are clear. The heart is normal in size. No displaced fractures. IMPRESSION: No acute or concerning finding suspected.
--- NOTE | 2022-10-26 22:40 | ER ---
Nurse's Notes [facility] Name: Sergio Otero Age: 62 yrs Sex: Female : 1960 Arrival Date: 10/26/2022 Time: 19:52 Bed 18 Private MD: Diagnosis: Cough Presentation: 10/26 20:26 Chief complaint: Patient states: "I have had a cough for the past few days.". tw5 Coronavirus screen: Vaccine status: Patient reports receiving the 2nd dose of the covid vaccine. Moderna. Ebola Screen: Patient negative for fever greater than or equal to 101.5 degrees Fahrenheit, and additional compatible Ebola Virus Disease symptoms Patient denies exposure to infectious person. Patient denies travel to an Ebola-affected area in the 21 days before illness onset. Initial Sepsis Screen: Does the patient meet any 2 criteria? HR > 90 bpm. Does the patient have a suspected source of infection? Yes: Productive cough/pneumonia. Risk Assessment: Do you want to hurt yourself or someone else? Patient reports no desire to harm self or others. Onset of symptoms was October 24, 2021. 20:26 Method Of Arrival: Ambulatory tw5 20:26 Acuity: SIMONE 4 tw5 Triage Assessment: 20:28 General: Appears in no apparent distress. Behavior is calm, cooperative, appropriate tw5 for age. Pain: Pain currently is 4 out of 10 on a pain scale. Historical: - PMHx: 20:28 Gout; Hyperlipidemia; Hypertension; kidney function is low; Sickle Cell Trait; tw5 - Immunization history:: Flu vaccine is up to date. - Social history:: Smoking status: Patient denies any tobacco usage or history of. Screenin:30 [facility] ED Fall Risk Assessment (Adult) History of falling in the last 3 months, jj7 including since admission No falls in past 3 months (0 pts) Confusion or Disorientation No (0 pts) Intoxicated or Sedated No (0 pts) Impaired Gait No (0 pts) Mobility Assist Device Used No (0 pt) Altered Elimination No (0 pt) Score/Fall Risk Level 0 - 2 = Low Risk Oriented to surroundings. Abuse screen: Denies threats or abuse. Nutritional screening: No deficits noted. Tuberculosis screening: No symptoms or risk factors identified. Assessment: 21:30 Reassessment: ASSUMED CARE OF PT. PT SITTING UP IN BED. NO DISTRESS NOTED. VS STABLE. jj7 CALL COSBY IN REACH. General: Appears in no apparent distress. uncomfortable, Behavior is calm, cooperative, appropriate for age. Respiratory: Reports cough that is non-productive, hacking, pain with cough. EENT: Reports sore throat. Vital Signs: 20:26 BP 153 / 73; Pulse 102; Resp 18; Temp 99; Pulse Ox 100% ; Weight 109.77 kg; Height 5 tw5 ft. 6 in. (167.64 cm); Pain 4/10; 21:40 BP 144 / 78; Pulse 92; Resp 19; Pulse Ox 100% ; jj7 22:40 BP 138 / 64; Pulse 89; Resp 20; Pulse Ox 100% ; jj7 20:26 Body Mass Index 39.06 (109.77 kg, 167.64 cm) tw5 ED Course: 19:52 Patient arrived in ED. jj6 19:55 Eugenio Leiva PA is PHCP. cp 19:55 Heather Kessler MD is Attending Physician. cp 20:28 Triage completed. tw5 20:28 Arm band placed on. tw5 20:43 Strep Sent. tw5 20:43 COVID-19/FLU A+B/RSV Sent. tw5 21:21 Edgar Anand, RN is Primary Nurse. jj7 21:30 Patient has correct armband on for positive identification. Bed in low position. Call jj7 light in reach. 21:30 No provider procedures requiring assistance completed. jj7 22:07 XRAY Chest Pa And Lat (2 Views) In Process Unspecified. EDMS 23:37 Patient did not have IV access during this emergency room visit. jj7 Administered Medications: 20:43 Drug: Tylenol 650 mg Route: PO; tw5 20:43 Drug: Tessalon Perle (benzonatate) 200 mg Route: PO; tw5 Medication: 21:30 VIS not applicable for this client. jj7 Outcome: 22:39 Discharge ordered by . cp 23:37 Discharged to home ambulatory. jj7 23:37 Condition: improved 23:37 Discharge instructions given to patient, Instructed on discharge instructions, medication usage, Demonstrated understanding of instructions, medications, Prescriptions given X 1. 23:44 Patient left the ED. jj7 Signatures: Dispatcher [employer] Eugenio Astorga PA PA cp Wood, Tiffany tw5 Araceli Gray jj6 Edgar Anand, RN RN jj7
--- NOTE | 2022-10-26 22:40 | EDPHYS ---
Physician Documentation [facility] Name: Sergio Otero Age: 62 yrs Sex: Female : 1960 Arrival Date: 10/26/2022 Time: 19:52 Bed 18 Private MD: ED Physician Heather Kessler HPI: 10/26 21:00 This 62 yrs old Black Female presents to ER via Ambulatory with complaints of Chest cp Congestion, Cough. 21:00 The patient or guardian reports cough, that is intermittent. cp 21:00 Onset: The symptoms/episode began/occurred 3 day(s) ago. Associated signs and symptoms: cp Pertinent positives: rhinorrhea, sore throat, Pertinent negatives: chest pain, diarrhea, fever, vomiting. Severity of symptoms: in the emergency department the symptoms are unchanged despite home interventions. Historical: - PMHx: 20:28 Gout; Hyperlipidemia; Hypertension; kidney function is low; Sickle Cell Trait; tw5 - Immunization history:: Flu vaccine is up to date. - Social history:: Smoking status: Patient denies any tobacco usage or history of. ROS: 21:05 Constitutional: Negative for body aches, fever, poor PO intake. cp 21:05 Eyes: Negative for injury, pain, redness, and discharge. cp 21:05 ENT: Negative for drainage from ear(s), ear pain, sore throat, difficulty swallowing, difficulty handling secretions. 21:05 Cardiovascular: Negative for chest pain, palpitations. 21:05 Respiratory: Positive for cough, "sounds productive", Negative for wheezing. 21:05 Abdomen/GI: Negative for abdominal pain, vomiting, diarrhea, constipation. 21:05 Neuro: Negative for altered mental status, dizziness, headache, weakness. 21:05 All other systems are negative. Exam: 21:10 Constitutional: The patient appears in no acute distress, alert, awake, cp non-diaphoretic, non-toxic, well developed, well nourished, obese. 21:10 Head/Face: Normocephalic, atraumatic. cp 21:10 Eyes: Periorbital structures: appear normal, Conjunctiva: normal, no exudate, no injection, Sclera: no appreciated abnormality, Lids and lashes: appear normal, bilaterally. 21:10 ENT: External ear(s): are unremarkable, Ear canal(s): are normal, clear, TM's: bulging, is not appreciated, bilaterally, dullness, bilaterally, erythema, is not appreciated, bilaterally, Nose: is normal, Mouth: Lips: moist, Oral mucosa: pink and intact, moist, Posterior pharynx: Airway: no evidence of obstruction, patent, Tonsils: no enlargement, no exudate, swelling, is not appreciated, erythema, that is mild, exudate, is not appreciated. 21:10 Neck: ROM/movement: is normal, is supple, without pain, no range of motions limitations, no meningismus. 21:10 Chest/axilla: Inspection: normal. 21:10 Cardiovascular: Rate: tachycardic. 21:10 Respiratory: the patient does not display signs of respiratory distress, Respirations: normal, no use of accessory muscles, no retractions, labored breathing, is not present, Breath sounds: decreased breath sounds, are not appreciated, stridor, is not appreciated, + upper airway congestion. wheezing: is not appreciated. 21:10 Abdomen/GI: Exam negative for discomfort, distension, guarding, Inspection: abdomen appears normal. 21:10 Neuro: Orientation: to person, place \\T\\ time. Mentation: is normal, Motor: moves all fours, strength is normal, Gait: is steady, at a normal pace. Vital Signs: 20:26 BP 153 / 73; Pulse 102; Resp 18; Temp 99; Pulse Ox 100% ; Weight 109.77 kg; Height 5 tw5 ft. 6 in. (167.64 cm); Pain 4/10; 21:40 BP 144 / 78; Pulse 92; Resp 19; Pulse Ox 100% ; jj7 22:40 BP 138 / 64; Pulse 89; Resp 20; Pulse Ox 100% ; jj7 20:26 Body Mass Index 39.06 (109.77 kg, 167.64 cm) tw5 MDM: 20:30 Patient medically screened. cp 21:00 Differential diagnosis: bronchitis, flu, URI. cp 22:38 Data reviewed: vital signs, nurses notes, lab test result(s), radiologic studies, plain cp films. 22:39 Test interpretation: by ED physician or midlevel provider: plain radiologic studies. cp 22:39 Counseling: I had a detailed discussion with the patient and/or guardian regarding: the cp historical points, exam findings, and any diagnostic results supporting the discharge/admit diagnosis, lab results, radiology results, to return to the emergency department if symptoms worsen or persist or if there are any questions or concerns that arise at home. Response to treatment: the patient's symptoms have mildly improved after treatment, and as a result, I will discharge patient. ED course: VSS. Patient appears non-toxic and no signs of respiratory distress. Will discharge to home for continued monitoring with RX for oral Z-arsh due to patient's many comorbidities. 10/26 20:22 Order name: COVID-19/FLU A+B/RSV; Complete Time: 22:18 cp 10/26 22:19 Interpretation: Reviewed. cp 10/26 20:25 Order name: Strep; Complete Time: 22:18 cp 10/26 22:19 Interpretation: Reviewed. cp 10/26 21:20 Order name: XRAY Chest Pa And Lat (2 Views); Complete Time: 22:18 cp 10/26 22:19 Interpretation: Report reviewed. cp 10/26 21:24 Order name: Throat Culture EDMS Administered Medications: 20:43 Drug: Tylenol 650 mg Route: PO; tw5 20:43 Drug: Tessalon Perle (benzonatate) 200 mg Route: PO; tw5 Disposition: 10/27 19:13 STAFF ATTESTATION STATEMENT: I was immediately available onsite in the emergency sd2 department for consultation in the care of this patient. I did not see or examine this patient. Heather Kessler MD. Disposition Summary: 10/26/22 22:39 Discharge Ordered Location: Home cp Problem: new cp Symptoms: have improved cp Condition: Stable cp Diagnosis - Cough cp Followup: cp - With: Private Physician - When: 2 - 3 days - Reason: Worsening of condition Discharge Instructions: - Discharge Summary Sheet cp - Cough, Adult cp Forms: - Medication Reconciliation Form cp - Thank You Letter cp - Antibiotic Education cp - Prescription Opioid Use cp Prescriptions: - Zithromax Z-Arsh 250 mg Oral Tablet - take 1 tablet by ORAL route as directed for 5 days Day 1 - take two (2) tablets cp one time. Day 2, 3, 4 , 5 take one (1) tablet once daily.; 6 tablet; Refills: 0, Product Selection Permitted - Tessalon Perles 100 mg Oral Capsule - take 2 capsule by ORAL route every 8 hours As needed; 30 capsule; Refills: 0, cp Product Selection Permitted Signatures: Dispatcher [employer] Eugenio Astorga PA PA cp Wood, Tiffany tw5 Heather Kessler MD MD sd2
[2022-10-27 00:15] VITALS: TEMP 99; O2SAT 100
[2022-10-27 00:18] VITALS: BP 138/64
== END 2022-10-26 23:44 | disposition home or self-care (01) ==
LOC: ER 19:44
DX: R05.9 Cough, unspecified (principal); Z20.822 Contact with and (suspected) exposure to COVID-19
CPT/HCPCS: 87070; 87081; 0241U; 71046; 99284

== ENCOUNTER 2023-05-09 11:01 | Observation (INO) | payer MEDICARE ==
--- OUTSIDE RECORDS SUMMARY | 2023-05-09 11:10 | XMS REPORT | Continuity of Care Document ---
:1960 Author Organization [facility] t Address [address] [place] [address] [address] [place] [address] Care Team Providers Name Role Phone Sudha Traore Primary Care Physician Karlee Colvin Attending Clinician Unavailable Sudha Traore Attending Clinician Unavailable Azar Watson Attending Clinician Unavailable Marissa Rodriguez Attending Clinician Unavailable Doctor Unassigned, [place] Attending Clinician Unavailable SHILPA NGUYEN Attending Clinician Unavailable Lizet Attending Clinician Unavailable Shilpa Nguyen PA-C Attending Clinician Lizet Admitting Clinician Unavailable Payers Payer Name Policy Type Policy Number Effective Date Expiration Date S funmilayo [employer] [id number] 2021 (MEDICARE 00:00:00 REPLACEMENT HMO) [employer] C1 [id number] Common g Medicare [facility] - [facility] Replace [facility] [employer] C1 [id number] Common g Medicare [facility] Replace [facility] [employer] C1 [id number] Common g Medicare [facility] Replace [facility] [employer] C1 [id number] Common g Medicare [facility] Replace [facility] [employer] C1 [id number] Common g Medicare [facility] Replace [facility] Problems Condition Condition Condition Status Onset Resolution Last Treating Co mments Source Name Details Category Date Date Treatment Clinician Date Essential Essential Disease Active Uni vers hypertensi hypertensi 6-18 it y [place] Hyperlipid Hyperlipid Disease Active U nivers emia emia 6-18 ity of 00:00: [place] 00 Medical Branch Venous Venous Disease Active Overview: Univer s (periphera (periphera 7-22 Formattin ity of l) l) 00:00: g of this [place] insufficie insufficie 00 note Me dical ncy ncy might be Branch different from the original. ICD10 Diagnosis Term [employer] Manager Utility Other Other Disease Active Univers specified specified 2-20 ity of disorders disorders [place] adrenal of adrenal 00 Me dical glands glands Branch [id number] Family Problem Common history of [facility] heart - CHI disease [facility] Mixed Hyperlipid Problem Commo n hyperlipid emia, Spirit emia mixed [facility] Polyp Polyp of Problem Common colon colon, [facility] unspecifie - [facility] d part of [facility] unspecifie Medica l d type Center [id number] Generalize Problem Com mon d weakness [facility] [id number] Polyarthra Problem Com mon lgia [facility] Sickle Sickle-mateo Problem Commo n cell trait l trait Spiri t [facility] [id number] Hyperurice Problem Com mon davy [facility] Pulmonary Pulmonary Problem Com mon hypertensi hypertensi Sp jenni on on - [facility] [id number] Diverticul Problem Co mmon osis large Spirit intestine - [facility] or Medical abscess Center w/o bleeding Blindness Blindness Problem Com mon and low and low [facility] vision vision [facility] [id number] [place] [id number] left foot [facility] Iron Iron Problem Common deficiency deficiency Sp jenni anemia due anemia due - CHI to chronic to chronic St blood loss blood loss [facility] [id number] Diverticul Problem Co mmon osis [facility] Heel pain Heel pain Problem Com mon Spirit - CHI [facility] Glaucoma Glaucoma Problem Commo n of both Spirit eyes, - CHI unspecifie St glaucoma [facility] [id number] Pain in Problem Commo n left leg Spirit - CHI [facility] [id number] Pain in Problem Comm on [id number] right leg Spirit - CHI [facility] [id number] Tiredness Problem Com mon Spirit - CHI [facility] [id number] Legal Problem Common blindness Spirit - CHI [facility] [id number] Acute Problem Common midline Spirit low back - CHI pain with St left-sided [facility] sciatica 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 - CHI eyes, unspecifie [facility] Chronic Stage 3a Problem Common kidney chronic Spirit disease kidney - CHI stage 3A disease [facility] [id number] Left Problem Commo n [id number] adrenal Spirit mass - CHI [facility] [id number] History of Problem Co mmon colon Spirit polyps - CHI [facility] [id number] Gastroesop Problem Co mmon hageal Spirit reflux - [facility] s present [id number] Other Problem Common chronic Spirit pain - CHI [facility] [id number] Injury of Problem Com mon left Spirit acromiocla - [facility] [id number] Pain, Problem Commo n [id number] joint, Spirit shoulder, - CHI right [facility] 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 - CHI zackary zackary [facility] [id number] Mild Problem Common intermitte Spirit nt asthma - CHI without complicati [facility] Chronic Stage 3b Problem Common kidney chronic Spirit disease kidney - CHI stage 3B disease St (disorder) (CKD) [facility] [id number] Pain in Problem Common right foot Spirit - CHI [facility] [id number] Memory Problem Common changes [facility] [id number] Pain, Problem Commo n [id number] joint, Spirit ankle, - CHI right [facility] [id number] Pain in Problem Commo n left ankle Spirit and joints - CHI of left [facility] 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 Spirit [facility] [id number] Body mass Problem Com mon index Spirit (BMI) of - CHI 40.0-44.9 St in adult [facility] Chronic Chronic Problem Common renal kidney Spirit disease disease, - CHI unspecifie St d CKD [facility] Essential Essential Problem Com mon hypertensi hypertensi Sp jenni on on - CHI [facility] [id number] Morbid Problem Common obesity [facility] [id number] Iron Problem Common deficiency Spirit anemia, - CHI unspecifie St d iron [facility] deficiency Medica l anemia Center type [id number] Rash and Problem Comm on nonspecifi Spirit c skin - CHI eruption [facility] [id number] Varicose Problem Commo n veins of Spirit both lower - CHI [facility] Medica l d whether Center complicate d Obesity Obesity Problem Common [facility] Allergies, Adverse Reactions, Alerts Allergy Allergy Status Severity Reaction(s) Onset Inactive Treating Comm ents Source Name Type Date Date Clinician NO KNOWN Drug Active Univers ALLERGIE Class ity of S [place] [facility] Social History Social Habit Start Date Stop Date Quantity Comments Source History of Common Spirit - Tobacco Use [facility] Sex Assigned At Common Sp jenni - [facility] Exposure to Not sure University of SARS-CoV-2 [place] [facility] (event) Branch Alcohol intake 2021-06-15 2021-06-15 Current University 00:00:00 00:00:00 non-drinker of [facility] alcohol (finding) Branch Tobacco use and 2010-12-11 2010-12-11 Smokeless tobacco Un iversity of exposure 00:00:00 00:00:00 non-user [facility] Smoking Status Start Date Stop Date Source Never Smoker Common [facility] Medications Ordered Filled Start Stop Current Ordering Indication Dosage Frequency Signature Comments Components Source Medication Medication Date Date Medication? Clinician (SIG) Name Name Nystatin Nystatin No 1{appli BID Nystatin 186000 959704 6-16 cation} [id number] UNIT/GM UNIT/GM 00:00: UNIT/GM 00 Vibramycin Vibramycin 0 2022- No 1{capsu BID Vibramycin 100 MG 100 MG 11-08 le} 100 MG 00:00: 00:00 00 :00 Vibramycin Vibramycin 0 3- No 1{capsu BID Vibramycin 100 MG 100 MG 11-08 le} 100 MG 00:00: 00:00 00 :00 Vibramycin Vibramycin 0 2022- No 1{capsu BID Vibramycin 100 MG 100 MG 11-08 le} 100 MG 00:00: 00:00 00 :00 predniSONE predniSONE 0 2022- No QD predniSONE 20 MG 20 MG 11-08 20 MG 00:00: 00:00 00 :00 predniSONE predniSONE 0 2022- No QD predniSONE 20 MG 20 MG 11-08 20 MG 00:00: 00:00 00 :00 Lidocaine Lidocaine 2021-10 No 20mg Com 10-23 Spirit 00:00: - CHI [facility] Kenalog Kenalog 2021-10 No 40mg Common (Triamcinol (Triamcinol 1-02 S pirit one) one) 00:00: - CHI [facility] Lidocaine Lidocaine 2021-10 No 20mg Com 10-23 Spirit 00:00: - CHI [facility] Kenalog Kenalog 2021-10 No 40mg Common (Triamcinol (Triamcinol 1-02 S pirit one) one) 00:00: - CHI [facility] Lidocaine Lidocaine 2021-10 No 20mg Com 10-23 Spirit 00:00: - CHI [facility] Kenalog Kenalog 2021-10 No 40mg Common (Triamcinol (Triamcinol 1-02 S pirit one) one) 00:00: - CHI 00 [facility] Lidocaine Lidocaine 2021- No 20mg Com 10-23 Spirit 00:00: - CHI [facility] Kenalog Kenalog 2021-10 No 40mg Common (Triamcinol (Triamcinol 1-02 S pirit one) one) 00:00: - CHI 00 [facility] Lidocaine Lidocaine 2021- No 20mg Com 10-23 Spirit 00:00: - CHI 00 [facility] Kenalog Kenalog 2021-10 No 40mg Common (Triamcinol (Triamcinol 1-02 S pirit one) one) 00:00: - CHI 00 [facility] Lidocaine Lidocaine 2021-10 No 20mg Com 10-23 Spirit 00:00: - CHI 00 [facility] Kenalog Kenalog 2021-10 No 40mg Common (Triamcinol (Triamcinol 1-02 S pirit one) one) 00:00: - CHI 00 [facility] Lidocaine Lidocaine 2021-10 No 20mg Com 10-23 Spirit 00:00: - CHI 00 [facility] Kenalog Kenalog 2021-10 No 40mg Common (Triamcinol (Triamcinol 1-02 S pirit one) one) 00:00: - CHI 00 [facility] Nystatin Nystatin 2021- No 1{appli BID Nystatin 009474 477941 -21 07- cation_ 308657 UNIT/GM UNIT/GM 00:00: 00:00 to_affe UNIT/GM 00 :00 cted_ar ea} Nystatin Nystatin 2021- No 1{appli BID Nystatin 313901 231297 06-20- cation_ 594601 UNIT/GM UNIT/GM 00:00: 00:00 to_affe UNIT/GM 00 :00 cted_ar ea} Nystatin Nystatin 2021- No 1{appli BID Nystatin 602968 514121 06-20-27 cation_ 431791 UNIT/GM UNIT/GM 00:00: 00:00 to_affe UNIT/GM 00 :00 cted_ar ea} Nystatin Nystatin 2021- No 1{appli BID Nystatin 360018 863122 03-16 06-25 cation_ 822572 UNIT/GM UNIT/GM 00:00: 00:00 to_affe UNIT/GM 00 :00 cted_ar ea} Nystatin Nystatin 2022-0 2022- No 1{appli BID Nystatin 285567 790594 03-16 06- cation_ 525018 UNIT/GM UNIT/GM 00:00: 00:00 to_affe UNIT/GM 00 :00 cted_ar ea} Nystatin Nystatin 2021-0 2- No 1{appli BID Nystatin 172222 845115 03-16- cation_ 560207 UNIT/GM UNIT/GM 00:00: 00:00 to_affe UNIT/GM 00 [...] MG 00:00: 00:00 00 :00 Allopurinol Allopurinol 2022-0 2022- No 1{table QD Allopurino 100 MG 100 MG 5-12 -08 t} l 100 MG 00:00: 00:00 00 :00 Allopurinol Allopurinol 2022-0 2022- No 1{table QD Allopurino 100 MG 100 MG 5-12 -08 t} l 100 MG 00:00: 00:00 00 :00 Allopurinol Allopurinol 2022-0 2022- No 1{table QD Allopurino 100 MG 100 MG -12 08 t} l 100 MG 00:00: 00:00 00 :00 Allopurinol Allopurinol 2021-2021- No 1{table QD Allopurino 100 MG 100 MG 5-12 08 t} l 100 MG 00:00: 00:00 00 :00 Allopurinol Allopurinol 2021-0 2021- No 1{table QD Allopurino 100 MG 100 MG 12 08-29 t} l 100 MG 00:00: 00:00 00 :00 Allopurinol Allopurinol 2021-0 2021- No 1{table QD Allopurino 100 MG 100 MG 12 08-29 t} l 100 MG 00:00: 00:00 00 :00 Albuterol Albuterol No 2{puffs Albuterol Sulfate HFA [...] (90 Base) MCG/ACT MCG/ACT MCG/ACT Benzonatate Benzonatate 2021-0 2021- No 1{capsu TID [...] 00:00: 00:00 00 :00 predniSONE predniSONE 2021-0 2021- No QD predniSONE 10 MG 10 MG 12-13 10 MG 00:00: 00:00 00 :00 Azithromyci Azithromyci 2021-0 2- No QD Azithromyc n 250 MG n 250 MG 12-13 in 250 MG 00:00: 00:00 00 :00 Azithromyci Azithromyci 2021- No QD Azithromyc n 250 MG n 250 MG 12-13 in 250 MG 00:00: 00:00 00 :00 Nystatin Nystatin 2020-10- No 1{appli BID Nystatin 699869 734486 11-09 cation_ 838035 UNIT/GM UNIT/GM 00:00: 00:00 to_affe UNIT/GM 00 [...] 0.1 % 00 0.1 % Ketoconazol Ketoconazol 2020-101- No 1{appli QD Ketoconazo e 2 % e 2 % 0-28 11-04 cation} le 2 % 00:00: 00:00 00 :00 Ketoconazol Ketoconazol 2020-10- No 1{appli QD Ketoconazo e 2 % e 2 % 0-28 11-04 cation} le 2 % 00:00: 00:00 00 :00 Ketoconazol Ketoconazol 2020-10- No 1{appli QD Ketoconazo e 2 % e 2 % 0-28 11-04 cation} le 2 % 00:00: 00:00 00 :00 Fluconazole Fluconazole 2020-10- No 1{table Fluconazol 150 MG 150 MG 008-19 ts} e 150 MG 00:00: 00:00 00 :00 Fluconazole Fluconazole 2020-10- No 1{table Fluconazol 150 MG 150 MG 0-28 10-29 ts} e 150 MG 00:00: 00:00 00 :00 Fluconazole Fluconazole 2020-10- No 1{table Fluconazol 150 MG 150 MG 0-28 10-29 ts} e 150 MG 00:00: 00:00 00 :00 Nystatin Nystatin 2020- No 1{appli BID Nystatin 166240 047425 -07-22 cation_ 946885 UNIT/GM UNIT/GM 00:00: 00:00 to_affe UNIT/GM 00 :00 cted_ar ea} losartan Yes 25mg Take 25 mg Uni vers (COZAAR) 25 3-25 by mouth ity of mg tablet 13:56: daily. [address] Cholecalcif Yes 1{capsu Take 1 Cap Univers greg, 3-25 le} by mouth ity of Vitamin D3, 13:56[place] (VIT[place] 11 Medical D3) 1,000 Branch unit Cap aspirin Yes 81mg Take 81 mg Univ ers (ASPIRIN 3-25 by mouth ity of CHILDRENS) 13:56: daily. [place] [address] Medical chewable Branch tablet losartan Yes 25mg Take 25 mg Uni vers (COZAAR) 25 3-25 by mouth ity of mg tablet 13:56: daily. [address] Cholecalcif Yes 1{capsu Take 1 Cap Univers rgeg, 3-25 le} by mouth ity of Vitamin D3, 13:56: [place] (VIT[place] 11 Medical D3) 1,000 Branch unit Cap aspirin Yes 81mg Take 81 mg Univ ers (ASPIRIN 3-25 by mouth ity of CHILDRENS) 13:56: daily. [place] [address] Medical chewable Branch tablet losartan Yes 25mg Take 25 mg Uni vers (COZAAR) 25 3-25 by mouth ity of mg tablet 13:56: daily. [address] Cholecalcif Yes 1{capsu Take 1 Cap Univers greg, 3-25 le} by mouth ity of Vitamin D3, 13:56: [place]. [place] (VIT[place] 11 Medical D3) 1,000 Branch unit Cap aspirin 2020-0 Yes 81mg Take 81 mg Univ ers (ASPIRIN 3-25 by mouth ity of CHILDRENS) 13:56: daily. [place] 81 mg 11 Medical chewable Branch tablet losartan 0 Yes 25mg Take 25 mg Uni vers (COZAAR) 25 3-25 by mouth ity of mg tablet 13:56: daily. [place] [address] Medical Branch Cholecalcif 0 Yes 1{capsu Take 1 Cap Univers greg, 3-25 le} by mouth ity of Vitamin D3, 13:56: daily. [place] (VITAMIN 11 Medical D3) 1,000 Branch unit Cap aspirin 0 Yes 81mg Take 81 mg Univ ers (ASPIRIN 3-25 by mouth ity of CHILDRENS) 13:56: daily. [place] 81 mg 11 Medical chewable Branch tablet losartan 0 Yes 25mg Take 25 mg Uni vers (COZAAR) 25 3-25 by mouth ity of mg tablet 13:56: daily. [place] [address] Medical Branch Cholecalcif 0 Yes 1{capsu Take 1 Cap Univers greg, 3-25 le} by mouth ity of Vitamin D3, 13:56: daily. [place] (VITAMIN 11 Medical D3) 1,000 Branch unit Cap aspirin 0 Yes 81mg Take 81 mg Univ ers (ASPIRIN 3-25 by mouth ity of CHILDRENS) 13:56: daily. [place] 81 mg Medical chewable Branch tablet losartan 0 Yes 25mg Take 25 mg Uni vers (COZAAR) 25 3-25 by mouth ity of mg tablet 13:56: daily. [place] [address] Medical Branch Cholecalcif 0 Yes 1{capsu Take 1 Cap Univers greg, 3-25 le} by mouth ity of Vitamin D3, 13:56: daily. [place] (VITAMIN 11 Medical D3) 1,000 Branch unit Cap aspirin 0 Yes 81mg Take 81 mg Univ ers (ASPIRIN 3-25 by mouth ity of CHILDRENS) 13:56: daily. [place] 81 mg 11 Medical chewable Branch tablet losartan 0 Yes 25mg Take 25 mg Uni vers (COZAAR) 25 3-25 by mouth ity of mg tablet 13:56: daily. [place] [address] Medical Branch Cholecalcif 0 Yes 1{capsu Take 1 Cap Univers greg, 3-25 le} by mouth ity of Vitamin D3, 13:56: daily. [place] (VITAMIN 11 Medical D3) 1,000 Branch unit Cap aspirin 2020-0 Yes 81mg Take 81 mg Univ ers (ASPIRIN 3-25 by mouth ity of CHILDRENS) 13:56: daily. [place] 81 mg 11 Medical chewable Branch tablet losartan 0 Yes 25mg Take 25 mg Uni vers (COZAAR) 25 3-25 by mouth ity of mg tablet 13:56: daily. [place] [address] Medical Branch Cholecalcif 0 Yes 1{capsu Take 1 Cap Univers greg, 3-25 le} by mouth ity of Vitamin D3, 13:56: daily. [place] (VITAMIN 11 Medical D3) 1,000 Branch unit Cap aspirin 2020-0 Yes 81mg Take 81 mg Univ ers (ASPIRIN 3-25 by mouth ity of CHILDRENS) 13:56: daily. [place] 81 mg 11 Medical chewable Branch tablet losartan 0 Yes 25mg Take 25 mg Uni vers (COZAAR) 25 3-25 by mouth ity of mg tablet 13:56: daily. [place] [address] Medical Branch Cholecalcif 0 Yes 1{capsu Take 1 Cap Univers greg, 3-25 le} by mouth ity of Vitamin D3, 13:56: daily. [place] (VITAMIN 11 Medical D3) 1,000 Branch unit Cap aspirin 2020-0 Yes 81mg Take 81 mg Univ ers (ASPIRIN 3-25 by mouth ity of CHILDRENS) 13:56: daily. [place] 81 mg 11 Medical chewable Branch tablet losartan 0 Yes 25mg Take 25 mg Uni vers (COZAAR) 25 3-25 by mouth ity of mg tablet 13:56: daily. [place] [address] Medical Branch Cholecalcif 2020-0 Yes 1{capsu Take 1 Cap Univers greg, 3-25 le} by mouth ity of Vitamin D3, 13:56: daily. [place] (VITAMIN 11 Medical D3) 1,000 Branch unit Cap aspirin 2020-0 Yes 81mg Take 81 mg Univ ers (ASPIRIN 3-25 by mouth ity of CHILDRENS) 13:56: daily. [place] 81 mg 11 Medical chewable Branch tablet losartan 2020-0 Yes 25mg Take 25 mg Uni vers (COZAAR) 25 3-25 by mouth ity of mg tablet 13:56: daily. [place] [address] Medical Branch Cholecalcif 0 Yes 1{capsu Take 1 Cap Univers greg, 3-25 le} by mouth ity of Vitamin D3, 13:56: daily. [place] (VITAMIN 11 Medical D3) 1,000 Branch unit Cap aspirin 0 Yes 81mg Take 81 mg Univ ers (ASPIRIN 3-25 by mouth ity of CHILDRENS) 13:56: daily. [place] 81 mg Medical chewable Branch tablet losartan 0 Yes 25mg Take 25 mg Uni vers (COZAAR) 25 3-25 by mouth ity of mg tablet 13:56: daily. [address] Branch Cholecalcif 0 Yes 1{capsu Take 1 Cap Univers greg, 3-25 le} by mouth ity of Vitamin D3, 13:56: daily. [place] (VITAMIN 11 Medical D3) 1,000 Branch unit Cap aspirin 0 Yes 81mg Take 81 mg Univ ers (ASPIRIN 3-25 by mouth ity of CHILDRENS) 13:56: daily. [place] 81 mg Medical chewable Branch tablet losartan 0 Yes 25mg Take 25 mg Uni vers (COZAAR) 25 3-25 by mouth ity of mg tablet 08:56: daily. [address] Cholecalcif 0 Yes 1{capsu Take 1 Cap Univers greg, 3-25 le} by mouth ity of Vitamin D3, 08:56: daily. [place] (VITAMIN 11 Medical D3) 1,000 Branch unit Cap aspirin 0 Yes 81mg Take 81 mg Univ ers (ASPIRIN 3-25 by mouth ity of CHILDRENS) 08:56: daily. [place] 81 mg Medical chewable Branch tablet buPROPion 2019-10 Yes 100mg Take 100 Uni vers 100 mg 2-09 mg by ity of tablet 00:00: mouth. [place] [facility] buPROPion 2019-10 Yes 100mg Take 100 Uni vers 100 mg 2-09 mg by ity of tablet 00:00: mouth. [place] [facility] buPROPion 2019-10 Yes 100mg Take 100 Uni vers 100 mg 2-09 mg by ity of tablet 00:00: mouth. [place] [facility] buPROPion 2019-10 Yes 100mg Take 100 Uni vers 100 mg 2-09 mg by ity of tablet 00:00: mouth. Medical Branch buPROPion 2019- Yes 100mg Take 100 Uni vers 100 mg 2-09 mg by ity of tablet 00:00: mouth. Medical Branch buPROPion 2019-10 Yes 100mg Take 100 Uni vers 100 mg 2-09 mg by ity of tablet 00:00: mouth. Medical Branch buPROPion 2019-10 Yes 100mg Take 100 Uni vers 100 mg 2-09 mg by ity of tablet 00:00: mouth. Medical Branch buPROPion 2019-10 Yes 100mg Take 100 Uni vers 100 mg 2-09 mg by ity of tablet 00:00: mouth. Medical Branch buPROPion 2019-10 Yes 100mg Take 100 Uni vers 100 mg 2-09 mg by ity of tablet 00:00: mouth. Medical Branch buPROPion 2019-10 Yes 100mg Take 100 Uni vers 100 mg 2-09 mg by ity of tablet 00:00: mouth. Medical Branch buPROPion 2019-10 Yes 100mg Take 100 Uni vers 100 mg 2-09 mg by ity of tablet 00:00: mouth. Medical Branch Gabapentin Gabapentin Yes Marissa 1 capsule Common 6-23 [place] as needed Spiri t 00:00: for pain - CHI 00 [facility] Uloric Uloric 2020- No Marissa 1 tablet Com mon 01-17 1231 [place] Spirit 00:00: 00:00 - CHI 00 :00 [facility] 0 Yes Marissa 1 Common ne ne 3-06 [place] applicatio Spir it Acetonide Acetonide 00:00: n to - C HI [address] [facility] Yes Apply to Un traci ne 0.1 % 6-22 area(s) 3 ity of lotion 00:00: (three) [place] times Medical daily. Branch [facility] Yes Apply to Un traci ne 0.1 % 6-22 area(s) 3 ity of lotion 00:00: (three) [place] times Medical daily. Branch [facility] Yes Apply to Un traci ne 0.1 [...] area(s) 3 ity of lotion 00:00: (three) [place] 00 times Medical daily. Branch losartan Yes 25mg Take 25 mg Uni vers (COZAAR) 25 6-18 by mouth ity of mg tablet 16:22: daily. [address] losartan Yes 25mg Take 25 mg Uni vers (COZAAR) 25 6-18 by mouth ity of mg tablet 16:22: daily. [address] Branch Cholecalcif Yes 1{capsu Take 1 Cap Univers greg, 6-18 le} by mouth ity of Vitamin D3, 15:54: [place]. [place] (VITAMIN 30 Medical D3) 1,000 Branch unit Cap aspirin Yes 81mg Take 81 mg Univ ers (ASPIRIN 6-18 by mouth ity of CHILDRENS) 15:54: daily. [place] 81 mg 30 Medical chewable Branch tablet Cholecalcif Yes 1{capsu Take 1 Cap Univers greg, 6-18 le} by mouth ity of Vitamin D3, 15:54: daily. [place] (VITAMIN 30 Medical D3) 1,000 Branch unit Cap aspirin Yes 81mg Take 81 mg Univ ers (ASPIRIN 6-18 by mouth ity of CHILDRENS) 15:54: daily. [place] 81 mg 30 Medical chewable Branch tablet [...] 1{table Uloric 40 MG MG t} MG Esomeprazol Esomeprazol No Esomeprazo e Magnesium e Magnesium le 20 MG 20 MG Magnesium 20 MG Benzonatate Benzonatate No 1{capsu TID Benzonatat 200 MG 200 MG le} e 200 MG Simvastatin Simvastatin No 1{table QD Simvastati 20 mg 20 mg t_in_th n 20 mg e_eveni ng} Temovate Temovate No 1{appli BID Temovate 0.05 % 0.05 % cation_ 0.05 % to_affe cted_ar ea} Furosemide Furosemide No 1{table QD Furosemide 20 MG 20 MG t} 20 MG Triamcinolo Triamcinolo No 1{appli BID Triamcinol ne ne cation} one Acetonide Acetonide Acetonide 0.1 % 0.1 % 0.1 % Allopurinol Allopurinol No Allopurino 100 MG 100 MG l 100 MG Lisinopril Lisinopril No QD Lisinopril 10 MG 10 MG 10 MG Aspir-81 81 Aspir-81 81 No 1{table QD Aspir-81 MG MG t} 81 MG Ferrous Ferrous No 1{table TID Ferrous Sulfate 325 Sulfate 325 t} Sulfate (65 Fe) MG (65 Fe) MG 325 (65 Fe) MG Albuterol Albuterol No 2{puff_ 6xD Albuterol Sulfate HFA Sulfate HFA as_need Sulfate 108 (90 108 (90 ed} HFA 108 Base) Base) (90 Base) MCG/ACT MCG/ACT MCG/ACT Allopurinol Allopurinol No QD Allopurino 100 MG 100 MG l 100 MG Furosemide Furosemide No 1{table QD Furosemide 20 MG 20 MG t} 20 MG Benzonatate Benzonatate No 1{capsu TID Benzonatat 200 MG 200 MG le} e 200 MG Albuterol Albuterol No Albuterol Sulfate HFA Sulfate HFA Sulfate 108 (90 108 (90 HFA 108 Base) Base) (90 Base) MCG/ACT MCG/ACT MCG/ACT Triamcinolo Triamcinolo No 1{appli BID Triamcinol ne ne cation} one Acetonide Acetonide Acetonide 0.1 % 0.1 % 0.1 % Linzess 145 Linzess 145 No Linzess MCG MCG 145 MCG Ferrous Ferrous No 1{table TID Ferrous Sulfate 325 Sulfate 325 t} Sulfate (65 Fe) MG (65 Fe) MG 325 (65 Fe) MG Lumigan Lumigan No 1{drop_ QD Lumigan 0.01 % 0.01 % into_af 0.01 % fected_ eye_in_ the_eve annel} Olmesartan Olmesartan No 1{table QD Olmesartan Medoxomil Medoxomil t} Medoxomil 40 MG 40 MG 40 MG Pantoprazol Pantoprazol No 1{table QD Pantoprazo e Sodium 40 e Sodium 40 t} le Sodium MG MG 40 MG Albuterol Albuterol No 3{ml_as QID Albuterol Sulfate Sulfate _needed Sulfate (2.5 (2.5 } (2.5 MG/3ML) MG/3ML) MG/3ML) 0.083% 0.083% 0.083% Aspir-81 81 Aspir-81 81 No 1{table QD Aspir-81 MG MG t} 81 MG Gabapentin Gabapentin No Gabapentin 100 MG 100 MG 100 MG buPROPion buPROPion No BID buPROPion HCl 100 MG HCl 100 MG HCl 100 MG Simvastatin Simvastatin No 1{table QD Simvastati 20 mg 20 mg t_in_th n 20 mg e_eveni ng} Temovate Temovate No 1{appli BID Temovate 0.05 % 0.05 % cation_ 0.05 % to_affe cted_ar ea} Furosemide Furosemide No 1{table QD Furosemide 20 MG 20 MG t} 20 MG Lumigan Lumigan No 1{drop_ QD Lumigan 0.01 % 0.01 % into_af 0.01 % fected_ eye_in_ the_eve annel} Albuterol Albuterol No 3{ml_as QID Albuterol Sulfate Sulfate _needed Sulfate (2.5 (2.5 } (2.5 MG/3ML) MG/3ML) MG/3ML) 0.083% 0.083% 0.083% Allopurinol Allopurinol No QD Allopurino 100 MG 100 MG l 100 MG Pantoprazol Pantoprazol No 1{table QD Pantoprazo e Sodium 40 e Sodium 40 t} le Sodium MG MG 40 MG Linzess 145 Linzess 145 No Linzess MCG MCG 145 MCG Ferrous Ferrous No 1{table TID Ferrous Sulfate 325 Sulfate 325 t} Sulfate (65 Fe) MG (65 Fe) MG 325 (65 Fe) MG amLODIPine amLODIPine No 1{table QD amLODIPine Besylate Besylate t} Besylate 2.5 MG 2.5 MG 2.5 MG Benzonatate Benzonatate No 1{capsu TID Benzonatat 200 MG 200 MG le} e 200 MG Aspir-81 81 Aspir-81 81 No 1{table [...] Acetonide 0.1 % 0.1 % 0.1 % Olmesartan Olmesartan No 1{table QD Olmesartan Medoxomil Medoxomil t} Medoxomil 40 MG 40 MG 40 MG buPROPion buPROPion No 1{table QD buPROPion HCl ER (XL) HCl ER (XL) t_in_th HCl ER 300 MG 300 MG e_morni (XL) 300 ng} MG Gabapentin Gabapentin No Gabapentin 100 MG 100 MG 100 MG Simvastatin Simvastatin No 1{table QD Simvastati 20 mg 20 mg t_in_th n 20 mg e_eveni ng} nexium nexium Yes Marissa 1 tab Common Millender [facility] Furosemide Furosemide Yes Marissa 1 tablet Common Millender [facility] Norvasc Norvasc Yes Marissa 1 tablet Comm on Mill[facility] Lumigan Lumigan Yes Marissa 1 drop Common Millender into Spirit affected - [facility] Aspir-81 Aspir-81 Yes Marissa 1 tablet Co mmon Millender [facility] Temovate Temovate Yes Marissa 1 Common Millender applicatio Spir it n to - [facility] affected [facility] Ferrous Ferrous Yes Marissa 1 tablet Comm on Sulfate Sulfate Millender Spir it [facility] Lisinopril Lisinopril Yes Marissa 1-2 Co mmon Millender tablets [facility] Simvastatin Simvastatin Yes Marissa 1 tablet Common Millender in the [facility] evening [facility] buPROPion buPROPion No BID buPROPion HCl 100 MG HCl 100 MG HCl 100 MG Gabapentin Gabapentin No Gabapentin 100 MG 100 MG 100 MG Simvastatin Simvastatin No 1{table QD Simvastati 20 mg 20 mg t_in_th n 20 mg e_eveni ng} Ferrous Ferrous [...] into_af 0.01 % fected_ eye_in_ the_eve annel} Ferrous Ferrous No 1{table TID Ferrous Sulfate [...] mg t_in_th n 20 mg e_eveni ng} - 81 Aspir- 81 No 1{table QD Aspir-81 MG MG [...] into_af 0.01 % fected_ eye_in_ the_eve annel} Uloric 40 Uloric 40 No 1{table Uloric [...] 100 MG 100 MG l 100 MG Linzess 145 Linzess 145 No Linzess MCG MCG 145 MCG Pantoprazol Pantoprazol No 1{table QD Pantoprazo e Sodium 40 e Sodium 40 t} le Sodium MG MG 40 MG Gabapentin Gabapentin No Gabapentin 100 MG 100 MG 100 MG buPROPion buPROPion No BID buPROPion HCl 100 MG HCl 100 MG HCl 100 MG Albuterol Albuterol No Albuterol Sulfate HFA Sulfate HFA Sulfate 108 (90 108 (90 HFA 108 Base) Base) (90 Base) MCG/ACT MCG/ACT MCG/ACT Lumigan Lumigan No 1{drop_ QD Lumigan 0.01 % 0.01 % into_af 0.01 % fected_ eye_in_ the_eve annel} Esomeprazol Esomeprazol No Esomeprazo e Magnesium e Magnesium le 20 MG 20 MG Magnesium 20 MG Benzonatate Benzonatate No 1{capsu TID Benzonatat 200 MG 200 MG le} e 200 MG Simvastatin Simvastatin No 1{table QD Simvastati 20 mg 20 mg t_in_th n 20 mg e_eveni ng} Furosemide Furosemide No 1{table QD Furosemide 20 MG 20 MG t} 20 MG Lisinopril Lisinopril No QD Lisinopril 10 MG 10 MG 10 MG Aspir-81 81 Aspir-81 81 No 1{table QD Aspir-81 MG MG t} 81 MG Allopurinol Allopurinol No Allopurino 100 MG 100 MG l 100 MG Temovate Temovate No 1{appli BID Temovate 0.05 % 0.05 % cation_ 0.05 % to_affe cted_ar ea} Uloric 40 Uloric 40 No 1{table Uloric 40 MG MG t} MG Ferrous Ferrous No 1{table TID Ferrous Sulfate 325 Sulfate 325 t} Sulfate (65 Fe) MG (65 Fe) MG 325 (65 Fe) MG Albuterol Albuterol No 2{puff_ 6xD Albuterol Sulfate HFA Sulfate HFA as_need Sulfate 108 (90 108 (90 ed} HFA 108 Base) Base) (90 Base) MCG/ACT MCG/ACT MCG/ACT Triamcinolo Triamcinolo No 1{appli BID Triamcinol ne ne cation} one Acetonide Acetonide Acetonide 0.1 % 0.1 % 0.1 % Linzess 145 Linzess 145 No Linzess MCG MCG 145 MCG Pantoprazol Pantoprazol No 1{table QD Pantoprazo e Sodium 40 e Sodium 40 t} le Sodium MG MG 40 MG Gabapentin Gabapentin No Gabapentin 100 MG 100 MG 100 MG buPROPion buPROPion No BID buPROPion HCl 100 MG HCl 100 MG HCl 100 MG Albuterol Albuterol No Albuterol Sulfate HFA Sulfate HFA Sulfate 108 (90 108 (90 HFA 108 Base) Base) (90 Base) MCG/ACT MCG/ACT MCG/ACT Lumigan Lumigan No 1{drop_ QD Lumigan 0.01 % 0.01 % into_af 0.01 % fected_ eye_in_ the_eve annel} Esomeprazol Esomeprazol No Esomeprazo e Magnesium e Magnesium le 20 MG 20 MG Magnesium 20 MG Benzonatate Benzonatate No 1{capsu TID Benzonatat 200 MG 200 MG le} e 200 MG Simvastatin Simvastatin No 1{table QD Simvastati 20 mg 20 mg t_in_th n 20 mg e_eveni ng} Furosemide Furosemide No 1{table QD Furosemide 20 MG 20 MG t} 20 MG Lisinopril Lisinopril No QD Lisinopril 10 MG 10 MG 10 MG Aspir-81 81 Aspir-81 81 No 1{table QD Aspir-81 MG MG t} 81 MG Allopurinol Allopurinol No Allopurino 100 MG 100 MG l 100 MG Temovate Temovate No 1{appli BID Temovate 0.05 % 0.05 % cation_ 0.05 % to_affe cted_ar ea} Uloric 40 Uloric 40 No 1{table Uloric 40 MG MG t} MG Ferrous Ferrous No 1{table TID Ferrous Sulfate 325 Sulfate 325 t} Sulfate (65 Fe) MG (65 Fe) MG 325 (65 Fe) MG Albuterol Albuterol No 2{puff_ 6xD Albuterol Sulfate HFA Sulfate HFA as_need Sulfate 108 (90 108 (90 ed} HFA 108 Base) Base) (90 Base) MCG/ACT MCG/ACT MCG/ACT Triamcinolo Triamcinolo No 1{appli BID Triamcinol ne ne cation} one Acetonide Acetonide Acetonide 0.1 % 0.1 % 0.1 % buPROPion buPROPion No BID buPROPion HCl 100 MG HCl 100 MG HCl 100 MG Linzess 145 Linzess 145 No Linzess MCG MCG 145 MCG Lumigan Lumigan No 1{drop_ QD Lumigan 0.01 % 0.01 % into_af 0.01 % fected_ eye_in_ the_eve annel} Gabapentin Gabapentin No Gabapentin 100 MG 100 MG 100 MG Pantoprazol Pantoprazol No 1{table QD Pantoprazo e Sodium 40 e Sodium 40 t} le Sodium MG MG 40 MG Albuterol Albuterol No Albuterol Sulfate HFA Sulfate HFA Sulfate 108 (90 108 (90 HFA 108 Base) Base) (90 Base) MCG/ACT MCG/ACT MCG/ACT nexium 20 nexium 20 2- No 1{capsu [...] Immunizations Ordered Filled Immunization Date Status Comments Sour e Immunization Name Name TDAP 2014-04-08 Completed [facility]00 [facility] TDAP 2014-04-08 Completed [facility] 00:00:00 [facility] TDAP 2014-04-08 Completed [facility] 00:00:00 [facility] TDAP 2014-04-08 Completed [facility] 00:00:00 [facility] TDAP 2014-04-08 Completed [facility] 00:00:00 [facility] TDAP 2014-04-08 Completed [facility] 00:00:00 [facility] TDAP 2014-04-08 Completed [facility] 00:00:00 [facility] TDAP 2014-04-08 Completed [facility] 00:00:00 [facility] TDAP 2014-04-08 Completed [facility] 00:00:00 [facility] TDAP 2014-04-08 Completed [facility] 00[facility]00:00 [facility] TDAP 2014-04-08 Completed [facility] 00:00:00 [facility] TDAP 2014-04-08 Completed [facility] 00:00:00 [facility] TDAP 2014-04-08 Completed [facility] 00:00:00 [facility] TDAP 2014-04-08 Completed [facility] 00:00:00 [facility] TDAP 2014-04-08 Completed [facility] 00:00:00 [facility] Vital Signs Vital Name Observation Time Observation Value Comments Source height 2022-11-24 08:20:00 64 [in_i] [facility] weight 2022-11-24 08:20:00 247 [lb_av] [facility] temperature 2022-11-24 08:20:00 97.6 [degF] [facility] bmi 2022-11-24 08:20:00 42.39 kg/m2 [facility] oximetry 2022-11-24 08:20:00 99 % [facility] respiratory rate 2022-11-24 08:20:00 16 /min Comm on [facility] blood pressure 2022-11-24 08:20:00 130 mm[Hg] Common [facility] - systolic [facility] blood pressure 2022-11-24 08:20:00 70 mm[Hg] Common [facility] - diastolic [facility] height 2022-11-08 09:00:00 64 [in_i] [facility] weight 2022-11-08 09:00:00 246.4 [lb_av] [facility] bmi 2022-11-08 09:00:00 42.29 kg/m2 Common S [facility] height 2022-09-04 11:00:00 64 [in_i] Common S pirit [facility] weight 2022-09-04 11:00:00 246.4 [lb_av] Common [facility] temperature 2022-09-04 11:00:00 97.3 [degF] Common S [facility] bmi 2022-09-04 11:00:00 42.29 kg/m2 Common [facility] oximetry 2022-09-04 11:00:00 98 % [facility] respiratory rate 2022-09-04 11:00:00 16 /min Comm [facility] blood pressure 2022-09-04 11:00:00 132 mm[Hg] Common [facility] - systolic [facility] blood pressure 2022-09-04 11:00:00 68 mm[Hg] Common [facility] - diastolic [facility] height 2022-08-23 09:00:00 64 [in_i] Common S [facility] weight 2022-08-23 09:00:00 242 [lb_av] [facility] temperature 2022-08-23 09:00:00 97.3 [degF] Common [facility] bmi 2022-08-23 09:00:00 41.53 kg/m2 [facility] 2022-08-23 09:00:00 132 mm[Hg] [facility] - systolic [facility] blood pressure 2022-08-23 09:00:00 80 mm[Hg] Common [facility] - diastolic [facility] height 2022-08-02 09:00:00 64 [in_i] Common [facility] weight 2022-08-02 09:00:00 242 [lb_av] Common [facility] temperature 2022-08-02 09:00:00 97.3 [degF] Common S pirit - [facility] bmi 2022-08-02 09:00:00 41.53 kg/m2 Common S pirit - [facility] blood pressure 2022-08-02 09:00:00 136 mm[Hg] Common [facility] - systolic [facility] blood pressure 2022-08-02 09:00:00 80 mm[Hg] Common [facility] - diastolic [facility] height 2022-07-05 10:00:00 64 [in_i] Common S pirit [facility] weight 2022-07-05 10:00:00 240 [lb_av] [facility] temperature 2022-07-05 10:00:00 97.1 [degF] Common S pirit [facility] bmi 2022-07-05 10:00:00 41.19 kg/m2 [facility] S [facility] blood pressure 2022-07-05 10:00:00 136 mm[Hg] Common [facility] - systolic [facility] blood pressure 2022-07-05 10:00:00 84 mm[Hg] Common [facility] - diastolic [facility] height 2022-05-30 10:00:00 64 [in_i] Common S pirit [facility] weight 2022-05-30 10:00:00 250.0 [lb_av] [facility] temperature 2022-05-30 10:00:00 97.6 [degF] Common S pirit [facility] bmi 2022-05-30 10:00:00 42.91 kg/m2 Common S [facility] oximetry 2022-05-30 10:00:00 97 % Common [facility] respiratory rate 2022-05-30 10:00:00 18 /min Comm on Spirit - [facility] blood pressure 2022-05-30 10:00:00 136 mm[Hg] Common [facility] - systolic [facility] blood pressure 2022-05-30 10:00:00 70 mm[Hg] Common [facility] - diastolic [facility] height 2022-02-24 10:00:00 64 [in_i] Common [facility] weight 2022-02-24 10:00:00 244.6 [lb_av] Common [facility] temperature 2022-02-24 10:00:00 97.2 [degF] Common S [facility] bmi 2022-02-24 10:00:00 41.98 kg/m2 Common [facility] oximetry 2022-02-24 10:00:00 98 % Common [facility] respiratory rate 2022-02-24 10:00:00 18 /min Comm on [facility] blood pressure 2022-02-24 10:00:00 135 mm[Hg] Common [facility] systolic [facility] blood pressure 2022-02-24 10:00:00 82 mm[Hg] Common [facility] - diastolic [facility] height 2022-01-16 10:20:00 64 [in_i] Common [facility] weight 2022-01-16 10:20:00 240 [lb_av] Common [facility] temperature 2022-01-16 10:20:00 97.8 [degF] [facility] bmi 2022-01-16 10:20:00 41.19 kg/m2 [facility] oximetry 2022-01-16 10:20:00 99 % Common [facility] respiratory rate 2022-01-16 10:20:00 18 /min Comm on [facility] blood pressure 2022-01-16 10:20:00 136 mm[Hg] Common [facility] - systolic [facility] blood pressure 2022-01-16 10:20:00 82 mm[Hg] Common [facility] - diastolic [facility] height 2021-11-16 09:00:00 64 [in_i] Common [facility] weight 2021-11-16 09:00:00 241 [lb_av] [facility] bmi 2021-11-16 09:00:00 41.36 kg/m2 Common S pirit [facility] height 2021-09-09 08:40:00 64 [in_i] Common S [facility] weight 2021-09-09 08:40:00 241 [lb_av] Common S pirit [facility] bmi 2021-09-09 08:40:00 41.36 kg/m2 Common S pirit [facility] height 2021-08-18 09:00:00 64 [in_i] Common S [facility] weight 2021-08-18 09:00:00 241.0 [lb_av] [facility] temperature 2021-08-18 09:00:00 96.9 [degF] [facility] bmi 2021-08-18 09:00:00 41.36 kg/m2 [facility] S [facility] oximetry 2021-08-18 09:00:00 99 % [facility] S [facility] respiratory rate 2021-08-18 09:00:00 18 /min Comm on Spirit - [facility] blood pressure 2021-08-18 09:00:00 120 mm[Hg] [facility] - systolic [facility] blood pressure 2021-08-18 09:00:00 74 mm[Hg] Common [facility] - diastolic [facility] Systolic blood 2021-06-15 14:30:00 131 mm[Hg] Univer sity of pressure [facility] Diastolic blood 2021-06-15 14:30:00 75 mm[Hg] Unive rsity of pressure [facility] Heart rate 2021-06-15 14:25:00 78 /min [facility] Body temperature 2021-06-15 14:25:00 36.78 Mateo Univ ersity [facility] Respiratory rate 2021-06-15 14:25:00 18 /[facility] 2021-06-15 14:25:00 170.2 cm [facility] Body weight 2021-06-15 14:25:00 113.671 kg Universi ty [facility] BMI 2021-06-15 14:25:00 39.25 kg/m2 [facility]i [facility] Systolic blood 2021-01-13 13:54:00 125 mm[Hg] Univer sity of pressure [facility] Diastolic blood 2021-01-13 13:54:00 69 mm[Hg] Unive rsity of pressure [facility] Heart rate 2021-01-13 13:54:00 75 /min Universi ty [facility] Body temperature 2021-01-13 13:54:00 36.67 Mateo [facility] Respiratory rate 2021-01-13 13:54:00 16 /min [facility] height 2021-01-13 13:54:00 170.2 cm Universi ty [facility] Body weight 2021-01-13 13:54:00 109.045 kg Universi [facility] BMI 2021-01-13 13:54:00 37.65 kg/m2 [facility] Procedures Procedure Date / Time Performing Clinician Source Performed EXTERNAL PROVIDER RECORDS 2023-03-27 05:01:00 Doctor Ramirez, [facility] [facility] US PELVIS COMPLETE WITH 2021-05-11 15:20:44 Shilpa Nguyen [facility] ASSIGNMENT OF BENEFITS 2021-05-11 13:41:33 Doctor James, [facility] [place] [facility] EXTERNAL PROVIDER RECORDS 2021-01-24 05:01:00 Doctor Ramirez [facility] INSURANCE CORRESPONDENCE 2021-01-19 05:01:00 Doctor Ramirez [facility] AUTHORIZATION TO RELEASE 2021-01-13 05:01:00 Doctor Ramirez [facility] TO [facility] [place] [facility] Encounters Start End Encounter Admission Attending Care Care Encounter Source Date/Time Date/Time Type Type Clinicians Facility Department ID 2023-04-04 Outpatient FIDE Colvin [facility] [id number] Common 09:55:00 Karlee [id number] [facility] 2023-02-06 Outpatient FIDE Colvin [facility] [id number] Common 13:31:00 Karlee [id number] [facility] 2023-02-05 Outpatient Colvin, STLMLC STLMLC [id number] Common 16:18:00 Karlee 11037 [facility] 2023-01-30 Outpatient Colvin, STLMLC STLMLC [id number] Common 15:37:00 Karlee 19101 [facility] 2022-11-24 Outpatient Colvin, STLMLC STLMLC [id number] Common 09:46:00 Karlee 01601 [facility] 2022-11-08 Outpatient Colvin, STLMLC STLMLC [id number] Common 08:23:00 Karlee 86099 [facility] 2022-11-07 Outpatient Colvin, STLMLC STLMLC [id number] Common 15:16:00 Karlee [id number] [facility] 2022-10-27 Outpatient Colvin, STLMLC STLMLC [id number] Common 12:43:00 Karlee 90630 [facility] 2022-08-31 Outpatient Traore, Na STLMLC STLMLC [id number] 2 Common 11:26:00 [facility] 2022-08-02 Outpatient Traore, Na STLMLC STLMLC [id number] 2 Common 09:07:01 [facility] 2022-07-06 Outpatient Traore, Na STLMLC STLMLC [id number] 2 Common 09:32:00 [facility] 2022-07-05 Outpatient Traore, Na STLMLC STLMLC [id number] 2 Common 10:27:00 [facility] 2022-06-27 Outpatient Traore, Na STLMLC STLMLC [id number] 2 Common 09:27:01 [facility] 2022-05-26 Outpatient Traore, Na STLMLC STLMLC [id number] 2 Common 10:09:00 [facility] 2022-02-22 Outpatient Traore, Na STLMLC STLMLC [id number] 2 Common 08:24:02 [facility] 2022-01-16 Outpatient Traore, Na STLMLC STLMLC [id number] 2 Common 10:10:00 [facility] 2021-11-16 Outpatient Traore, Na STLMLC STLMLC [id number] 2 Common 14:32:02 [facility] 2021-11-16 Outpatient Traore, Na STLMLC STLMLC [id number] 2 Common 14:31:06 [facility] 2021-11-16 Outpatient Traore, Na STLMLC STLMLC [id number] 2 Common 13:09:20 [facility] 2021-11-16 Outpatient Traore, Na STLMLC STLMLC [id number] 2 Common 12:39:12 [id number] [facility] 2021-11-16 Outpatient Traore, Na STLMLC STLMLC [id number] 2 Common 12:34:08 [id number] [facility] 2021-11-16 Outpatient Traore, Na STLMLC STLMLC [id number] 2 Common 12:25:21 [facility] 2021-11-16 Outpatient Traore, Na STLMLC STLMLC [id number] 2 Common 12:25:09 [id number] [facility] 2021-11-16 Outpatient Traore, Na STLMLC STLMLC [id number] 2 Common 12:14:55 [id number] [facility] 2021-11-16 Outpatient Walter, Kin STLMLC STLMLC [id number] Common 12:14:45 [id number] [facility] 2021-11-16 Outpatient Walter, Kin STLMLC STLMLC [id number] Common 12:11:09 [id number] [facility] 2021-11-16 Outpatient Walter, Kin STLMLC STLMLC [id number] Common 12:08:17 [id number] [facility] 2021-11-16 Outpatient Azar Watson STLMLC STLMLC [id number] Common 12:06:49 [id number] [facility] 2021-11-16 Outpatient STLMLC STLMLC [id number] Common 12:01:10 [id number] [facility] 2021-11-16 Outpatient Millender, STLMLC STLMLC [id number] 11:27:56 Marissa 88669 [facility] 2021-11-16 Outpatient Millender, STLMLC STLMLC [id number] 11:13:44 Marissa 15252 [facility] 2021-11-16 Outpatient Millender, STLMLC STLMLC [id number] 11:09:05 Marissa 26924 [facility] 2021-11-16 Outpatient Millender, STLMLC STLMLC [id number] 11:06:45 Marissa 35210 [facility] 2023-03-27 2023-03-27 Orders Doctor LIAM [id number] Univers 00:00:00 00:00:00 Only Unassigned, KODY [id number] ity of [place] [facility] [id number] Donovan as [id number] [place] [address] Branch 2022-11-24 2022-11-24 OFFICE STLMLC STLMLC [id number] Co mmon 00:00:00 00:00:00 VISIT Spirit ESTAB PT - [facility]I LEVEL 4 [facility] 2022-11-13 2022-11-13 (TEL) STLMLC STLMLC [id number] Co mmon 00:00:00 00:00:00 [facility] 2022-11-08 2022-11-08 OFFICE STLMLC STLMLC [id number] Co mmon 00:00:00 00:00:00 VISIT EST Spir it PT LEVEL 3 - [facility] 2022-11-06 2022-11-06 (TEL) STLMLC STLMLC [id number] Co mmon 00:00:00 00:00:00 [facility] 2022-09-04 2022-09-04 OFFICE STLMLC STLMLC [id number] Co mmon 00:00:00 00:00:00 VISIT Spirit ESTAB PT - [facility]I LEVEL 4 [facility] 2022-08-23 2022-08-23 OFFICE STLMLC STLMLC [id number] Co mmon 00:00:00 00:00:00 VISIT EST Spir it PT LEVEL 3 - [facility] 2022-08-02 2022-08-02 OFFICE STLMLC STLMLC [id number] Co mmon 00:00:00 00:00:00 VISIT EST Spir it PT LEVEL 3 - [facility] 2022-07-05 2022-07-05 OFFICE STLMLC STLMLC [id number] Co mmon 00:00:00 00:00:00 VISIT NEW Spir it PT LEVEL 3 - [facility] 2022-06-22 2022-06-22 (TEL) STLMLC STLMLC [id number] Co mmon 00:00:00 00:00:00 [facility] 2022-06-20 2022-06-20 (TEL) STLMLC STLMLC [id number] Co mmon 00:00:00 00:00:00 [facility] 2022-06-15 2022-06-15 Outpatient Ranjit NGUYEN [facility] [id number] Univers 09:30:00 09:30:00 SHILPA gamino [facility] 2022-05-31 2022-05-31 (TEL) STLMLC STLMLC [id number] Co mmon 00:00:00 00:00:00 [facility] 2022-05-30 2022-05-30 OFFICE STLMLC STLMLC [id number] Co mmon 00:00:00 00:00:00 VISIT Spirit ESTAB PT - CHI LEVEL 4 [facility] 2022-05-22 2022-05-22 (TEL) STLMLC STLMLC [id number] Co mmon 00:00:00 00:00:00 [facility] 2022-05-06 2022-05-06 Outpatient Adams_R DMG DMG [id number] [facility] 10:01:00 10:01:00 [facility]16 [facility] 2022-05-06 2022-05-06 Outpatient Adams_R DMG DMG [id number] [facility] 00:00:00 00:00:00 0506 [facility] 2022-03-29 2022-03-29 (TEL) STLMLC STLMLC [id number] Co mmon 00:00:00 00:00:00 [facility] 2022-03-21 2022-03-21 (TEL) STLMLC STLMLC [id number] Co mmon 00:00:00 00:00:00 [facility] 2022-03-16 2022-03-16 (TEL) STLMLC STLMLC [id number] Co mmon 00:00:00 00:00:00 [facility] 2022-03-09 2022-03-09 (TEL) STLMLC STLMLC [id number] Co mmon 00:00:00 00:00:00 [facility] 2022-03-02 2022-03-02 (TEL) STLMLC STLMLC [id number] Co mmon 00:00:00 00:00:00 [facility] 2022-02-24 2022-02-24 OFFICE STLMLC STLMLC [id number] Co mmon 00:00:00 00:00:00 VISIT [facility] PT - CHI LEVEL 4 [facility] 2022-02-13 2022-02-13 (TEL) STLMLC STLMLC [id number] Co mmon 00:00:00 00:00:00 [facility] 2022-01-18 2022-01-18 (TEL) STLMLC STLMLC [id number] Co mmon 00:00:00 00:00:00 [facility] 2022-01-16 2022-01-16 OFFICE STLMLC STLMLC [id number] Co mmon 00:00:00 00:00:00 VISIT EST Spir it PT LEVEL 3 [facility] 2021-12-16 2021-12-16 (TEL) STLMLC STLMLC [id number] Co mmon 00:00:00 00:00:00 [facility] 2021-12-13 2021-12-13 OL DIG E/M STLMLC STLMLC [id number] Common 00:00:00 00:00:[address] [facility] [place]-20 Spir it MIN [facility] 2021-12-12 2021-12-12 (TEL) STLMLC STLMLC [id number] Co mmon 00:00:00 00:00:00 [facility] 2021-11-23 2021-11-23 (TEL) STLMLC STLMLC [id number] Co mmon 00:00:00 00:00:00 [facility] 2021-11-16 2021-11-16 OL DIG E/M STLMLC STLMLC [id number] Common 00:00:00 00:00:[address] [facility] [place]-20 Spir it MIN [facility] 2021-10-31 2021-10-31 Outpatient Adams_R DMG [facility] [id number] Devoted 09:57:00 09:57:00 [facility] 2021-10-18 2021-10-18 [place] [id number] [facility] 12:00:00 12:00:00 [facility]28 [facility] 2021-09-09 2021-09-09 OL DIG E/M STLMLC STLMLC [id number] Common 00:00:00 00:00:[address] [facility] 21+ [facility] 2021-08-29 2021-08-29 Outpatient DMG [facility] [id number] [facility] 11:02:00 11:02:00 1108 [facility] 2021-08-18 2021-08-18 OFFICE STLMLC STLMLC [id number] Co mmon 00:00:00 00:00:00 VISIT EST Spir it PT LEVEL 3 [facility] 2021-08-18 2021-08-18 (TEL) STLMLC STLMLC [id number] Co mmon 00:00:00 00:00:00 [facility] 2021-08-18 2021-08-18 (TEL) STLMLC STLMLC [id number] Co mmon 00:00:00 00:00:00 [facility] 2021-08-15 2021-08-15 (TEL) STLMLC STLMLC [id number] Co mmon 00:00:00 00:00:00 [facility] 2021-07-08 2021-07-08 (TEL) STLMLC STLMLC [id number] Co mmon 00:00:00 00:00:00 [facility] 2021-06-21 2021-06-21 Outpatient STLMLC STLMLC [id number] Common 00:00:00 00:00:00 [facility] 2021-06-15 2021-06-15 [facility] [id number] Univers 09:22:29 09:49:00 Visit Shilpa Mandujano [id number] [id number] [facility] [phone] [address] 2021-06-15 2021-06-15 [facility] [id number] Univers 09:00:00 09:00:00 SHILPA gamino [facility] 2021-06-10 2021-06-10 Outpatient STLMLC STLMLC [id number] Common 00:00:00 00:00:00 [facility] 2021-06-10 2021-06-10 Outpatient STLMLC STLMLC [id number] Common 00:00:00 00:00:00 [facility] 2021-05-11 2021-05-[address] [facility] [id number] Univers 08:42:39 23:59:00 Encounter Shilpa Mandujano [id number] [id number] [phone] [address] 2021-05-11 2021-05-11 [facility] [id number] Univers 00:00:00 00:00:00 SHILPA gamino [facility] 2021-05-11 2021-05-11 Orders Doctor LIAM [id number] Univers 00:00:00 00:00:00 Only Unassigned, KODY [id number] ity of [place] [facility] [id number] [place] as [phone] [address] 2021-03-23 2021-03-23 [facility] [id number] Common 00:00:00 00:00:00 [facility] 2021-01-26 2021-01-26 [facility] [id number] Common 00:00:00 00:00:00 [facility] 2021-01-24 2021-01-24 Orders Doctor LIAM [id number] Univers 00:00:00 00:00:00 Only Unassigned, KODY [id number] ity of [place] [facility] [id number] [place] as [phone] [address] 2021-01-19 2021-01-19 Orders Doctor LIAM [id number] Univers 00:00:00 00:00:00 Only Unassigned, KODY [id number] ity of [place] [facility] [id number] [place] as [phone] [address] 2021-01-13 2021-01-13 Office Christelle [facility] [id number] Univers 08:35:32 09:20:50 Visit Shilpa Mandujano [id number] i ty of [id number] [phone] Ri dical [address] 2021-01-13 2021-01-13 Outpatient R CHRISTELLE [facility] [id number] Univers 09:00:00 09:00:00 SHILPA gamino [facility] 2021-01-13 2021-01-13 Orders Doctor LIAM [id number] Univers 00:00:00 00:00:00 Only Unassigned, KODY [id number] ity of [place] [facility] [id number] Donovan as [phone] [facility] [address] 2021-01-13 2021-01-13 Letter Doctor LIAM [id number] Univers 00:00:00 00:00:00 (Out) Unassigned, KODY [id number] ity of [place] [facility] [id number] [place] as [phone] [facility] [address] 2021-01-13 2021-01-13 Letter Doctor LIAM [id number] Univers 00:00:00 00:00:00 (Out) Unassigned, KODY [id number] ity of [place] [facility] [id number] Donovan as [phone] [facility] [address] 2021-01-04 2021-01-04 Case Christelle TXKATIE [id number] Univers 00:00:00 00:00:00 Management Shilpa Mandujano [id number] [phone] [place] [address] [address] [facility] 2021-01-03 2021-01-03 Outpatient STLMLC STLMLC [id number] Common 00:00:00 00:00:00 [facility] 2020-12-21 2020-12-21 Outpatient STLMLC STLMLC [id number] Common 00:00:00 00:00:00 [facility] 2020-11-16 2020-11-16 Outpatient STLMLC STLMLC [id number] Common 00:00:00 00:00:00 [facility] 2020-11-10 2020-11-10 Outpatient STLMLC STLMLC [id number] Common 00:00:00 00:00:00 [facility] 2020-10-12 2020-10-12 Outpatient STLMLC STLMLC [id number] Common 00:00:00 00:00:00 [facility] 2020-10-11 2020-10-11 Outpatient STLMLC STLMLC [id number] Common 00:00:00 00:00:00 [facility] 2020-09-30 2020-09-30 Outpatient STLMLC STLMLC [id number] Common 00:00:00 00:00:00 [facility] 2020-09-29 2020-09-29 Outpatient STLMLC STLMLC [id number] Common 00:00:00 00:00:00 [facility] 2020-09-14 2020-09-14 Outpatient STLMLC STLMLC [id number] Common 00:00:00 00:00:00 [facility] 2020-09-14 2020-09-14 Outpatient STLMLC STLMLC [id number] Common 00:00:00 00:00:00 [facility] 2020-09-14 2020-09-14 Outpatient STLMLC STLMLC [id number] Common 00:00:00 00:00:00 [facility] 2020-09-13 2020-09-13 Outpatient STLMLC STLMLC [id number] Common 00:00:00 00:00:00 [facility] 2020-06-24 2020-06-24 Outpatient [facility] [address] [id number] Common 09:50:00 09:50:00 [facility] 2020-06-09 2020-06-09 [facility] [id number] Common 16:32:00 16:32:00 [facility] [address] [facility] 2020-05-28 2020-05-28 [facility] [id number] Common 11:43:00 11:43:00 [facility] [address] [facility] 2020-04-13 2020-04-13 [facility] [id number] Common 09:20:00 09:20:00 t [facility] [address] Road [facility] 2020-03-10 2020-03-10 [facility] [id number] Common 16:01:00 16:01:00 t [facility] [address] Road [facility] 2020-01-25 2020-01-25 [facility] [id number] Common 13:49:00 13:49:[address] [facility] 2020-01-02 2020-01-02 Out[facility] [id number] Common 09:45:00 09:45:[address] [facility] 2019-12-02 2019-12-02 Out[facility] [id number] Common 09:15:00 09:15:[address] [facility] 2019-11-17 2019-11-17 [facility] [id number] Common 14:50:00 14:50:[address] [facility] 2019-09-26 2019-09-26 Out[facility] [id number] Common 10:00:00 10:00:[address] [facility] 2019-07-22 2019-07-22 Out[facility] [id number] Common 11:05:00 11:05:[address] [facility] 2019-06-30 2019-06-30 [facility] [id number] Common 10:20:00 10:20:[address] [facility] 2019-04-17 2019-04-17 [facility] [id number] Common 20:26:00 20:26:[address] [facility] 2019-04-16 2019-04-16 Outpatient [facility] [id number] Common 15:58:00 15:58:[address] [facility] 2019-03-03 2019-03-03 Outpatient [facility] [id number] Common 13:58:00 13:58:[address] [facility] 2019-01-17 2019-01-17 Out[facility] [id number] Common 15:47:00 15:47:[address] [facility] 2019-01-17 2019-01-17 Out[facility] [id number] Common 11:15:00 11:15:[address] [facility] 2019-01-10 2019-01-10 Out[facility] [id number] Common 01:41:00 01:41:[address] [facility] 2019-01-08 2019-01-08 Out[facility] [id number] Common 10:30:00 10:30:[address] [facility] 2018-12-26 2018-12-26 Out[facility] [id number] Common 14:36:00 14:36:[address] [facility] 2018-12-25 2018-12-25 [facility] [id number] Common 11:15:00 11:15:[address] [facility] 2018-11-12 2018-11-12 Out[facility] [id number] Common 09:15:00 09:15:[address] [facility] 2018-10-09 2018-10-09 Out[facility] [id number] Common 08:00:00 08:00:[address] [facility] 2018-07-30 2018-07-30 Out[facility] [id number] Common 15:53:00 15:53:[address] [facility] 2018-07-29 2018-07-29 Out[facility] [id number] Common 09:10:00 09:10:[address] [facility] 2018-05-28 2018-05-28 Out[facility] [id number] Common 11:00:00 11:00:[address] [facility] 2018-04-10 2018-04-10 Outpatient [facility] [id number] Common 08:24:00 08:24:[address] [facility] 2018-04-02 2018-04-02 Outpatient [facility] [id number] Common 09:00:00 09:00:[address] [facility] 2018-04-01 2018-04-01 Outpatient [facility] [id number] Common 14:33:00 14:33:[address] [facility] 2018-03-21 2018-03-21 Outpatient [facility] [id number] Common 08:55:00 08:55:[address] [facility] 2018-03-19 2018-03-19 Outpatient Danielle Daniellet [id number] Common 09:30:00 09:30:[address] [facility] Results Test Description Test Test Results Result Source Time Comments Comments US PELVIS 1. ?Simple cyst in Unive rsity of COMPLETE WITH 21 the left ovary [facility] TRANSVAGINAL 23:04:56 measuring up to 3.6 Bra nch cm, requires annualultrasound follow-up. 2. ?Uterine fibroid measuring up to 2.1 cm. Other smaller multiple fibroidsare suspected. 3. ?Minimal nonspecific free fluid is seen in the pelvis. Preliminary Report Dictated by Resident: Wei Hall MD., have reviewed this study and agree with theove report.EXAM: US PELVIS COMPLETE WITH TRANSVAGINAL HISTORY: 60 years-old Female; hx of ovarian cyst . . TECHNIQUE: Transabdominal and transvaginal ultrasound imaging and colorDoppler evaluation of the pelvis was performed. Line Service Person images wereobtained for the record. COMPARISON: None [...] colorDoppler evaluation of the pelvis was performed. Line Service Person images wereobtained for the record. COMPARISON: NoneFINDINGS:STATEMENT [...]
[2023-05-09 11:53] LABS: Absolute Lymphocytes (CBC) 2.1 K/uL (0.7-4.9); Hematocrit 33.5 % (36.0-45.0); Lymphocytes % 24.1 % (15.3-44.8); MCV 91.3 fL (80-100); MPV 11.2 fL (7.6-11.3); RBC Red Blood Cell Count 3.67 M/uL (3.86-4.86)
[2023-05-09 11:57] LABS: Protime INR 1.13
[2023-05-09 12:14] LABS: Albumin 3.7 g/dL (3.4-5.0); Bilirubin Direct 0.1 mg/dL (0-0.2); Bilirubin Indirect, Calculated 0.4 mg/dL (0.2-0.8); Bilirubin Total 0.5 mg/dL (0.2-1.0); Potassium 5.1 mEq/L (3.5-5.1); Protein, Total 8.2 g/dL (6.4-8.2); Troponin High Sensitivity 8.2 pg/mL (<58.9)
--- NOTE | 2023-05-09 13:49 | RAD REPORT ---
EXAM DESCRIPTION: Pramod Single View05/09/2023 1:23 pm CLINICAL HISTORY: Chest pain COMPARISON: October 2022 FINDINGS: Right base is mildly hazy Main lungs appear clear Heart is normal size IMPRESSION: Right base mildly hazy probably overlying soft tissue. An infiltrate can have this appea areli as well. PA and lateral chest series is recommended
--- NOTE | 2023-05-09 13:51 | EDPHYS ---
Physician Documentation [facility] Name: Sergio Otero Age: 62 yrs Sex: Female : 1960 Arrival Date: 05/09/2023 Time: 11:01 Bed 15 Private MD: ED Physician Jairon Zepeda HPI: 05/09 11:14 This 62 yrs old Black Female presents to ER via Unassigned with complaints of Chest rn Pain. 11:14 The patient or guardian reports chest pain that is located primarily in the substernal rn area. Onset: yesterday. The pain radiates to The pain radiates to back. Associated signs and symptoms: Pertinent positives: None. Pertinent negatives: abdominal pain, cough, shortness of breath, syncope, vomiting. The chest pain is described as sharp, stabbing. Duration: The patient or guardian reports multiple episodes, that are intermittent, the episodes last approximately 5 minute(s). Modifying factors: The symptoms are alleviated by nothing. the symptoms are aggravated by activity. Severity of pain: At its worst the pain was mild in the emergency department the pain has improved. The patient has not experienced similar symptoms in the past. The patient has not recently seen a physician. 11:14 Pt does not feel ill, no fever, no trauma, no cough, no sob, no hx of dvt/PE. No abd rn pain.. Historical: - Allergies: 16:35 No Known Drug Allergies; ll1 - PMHx: 16:35 Gout; Hyperlipidemia; Hypertension; kidney function is low; Sickle Cell Trait; ll1 - Immunization history:: Adult Immunizations up to date. - Social history:: Smoking status: unknown. - Family history:: not pertinent. - Hospitalizations: : No recent hospitalization is reported. ROS: 11:14 Constitutional: Negative for fever, chills, and weight loss, Eyes: Negative for injury, rn pain, redness, and discharge, Neck: Negative for injury, pain, and swelling, Cardiovascular: + chest pain Respiratory: Negative for sob or cough Abdomen/GI: Negative for abdominal pain, nausea, vomiting, diarrhea, and constipation, MS/Extremity: Negative for injury and deformity, Skin: Negative for injury, rash, and discoloration, Neuro: Negative for headache, weakness, numbness, tingling, and seizure. Exam: 11:14 Constitutional: This is a well developed, well nourished patient who is awake, alert, rn and in no acute distress. Head/Face: Normocephalic, atraumatic. Cardiovascular: Regular rate and rhythm. No pulse deficits. Respiratory: No increased work of breathing, no retractions or nasal flaring. Abdomen/GI: Soft, non-tender, no RUQ tenderness Skin: Warm, dry MS/ Extremity: Pulses equal, no cyanosis. Neuro: Awake and alert, GCS 15 11:20 ECG was reviewed by the Attending Physician. rn Vital Signs: 11:19 BP 136 / 72; Pulse 75; Resp 18; Temp 97.5; Pulse Ox 100% on R/A; Weight 108.86 kg; ph Height 5 ft. 7 in. ; 12:34 BP 140 / 79; Pulse 74; Resp 16; Pulse Ox 100% on R/A; nj1 14:17 BP 133 / 72; Pulse 68; Resp 17; Pulse Ox 100% on R/A; Pain 3/10; nj1 16:14 BP 138 / 72; Pulse 70; Resp 16; Pulse Ox 100% ; Pain 0/10; nj1 16:57 BP 150 / 71; Pulse 73; Resp 17; Pulse Ox 100% on R/A; ll1 11:19 Body Mass Index 37.59 (108.86 kg, 170.18 cm) ph 14:17 Pain Scale: Adult nj1 16:14 Pain Scale: Adult nj1 MDM: 11:04 Patient medically screened. rn 13:49 Differential diagnosis: acute myocardial infarction, acute pericarditis, anxiety, rn coronary artery disease chest wall pain, costochondritis, esophagitis, gastritis, pleurisy, pneumothorax, stable angina. The patient was given aspirin in the Emergency Department. Data reviewed: vital signs, nurses notes, lab test result(s), EKG, radiologic studies, plain films, and as a result, I will admit patient. 13:50 Counseling: I had a detailed discussion with the patient and/or guardian regarding: the rn historical points, exam findings, and any diagnostic results supporting the discharge/admit diagnosis, lab results, radiology results, the need for further work-up and treatment in the hospital. Response to treatment: the patient's symptoms have mildly improved after treatment, and as a result, I will admit patient. 05/09 11:13 Order name: Basic Metabolic Panel; Complete Time: 12:19 rn 05/09 11:13 Order name: CBC with Diff; Complete Time: 12:19 rn 05/09 11:13 Order name: LFT's; Complete Time: 12:19 rn 05/09 11:13 Order name: NT PRO-BNP; Complete Time: 12:19 rn 05/09 11:13 Order name: PT-INR; Complete Time: 12:19 rn 05/09 11:13 Order name: Troponin HS; Complete Time: 12:19 rn 05/09 11:41 Order name: Magnesium; Complete Time: 12:19 rn 05/09 16:53 Order name: Phosphorus; Complete Time: 16:57 EDMS 05/09 16:53 Order name: Troponin High Sensitivity; Complete Time: 16:57 EDMS 05/09 16:53 Order name: T4 Free; Complete Time: 16:57 EDMS 05/09 16:53 Order name: Magnesium; Complete Time: 16:57 EDMS 05/09 16:53 Order name: Thyroid Stimulating Hormone; Complete Time: 16:57 EDMS 05/09 11:13 Order name: XRAY Chest (1 view); Complete Time: 13:51 rn 05/09 13:51 Order name: XRAY Chest Pa And Lat (2 Views); Complete Time: 15:06 rn 05/09 11:13 Order name: EKG; Complete Time: 11:05/09 11:13 Order name: Cardiac monitoring; Complete Time: 11:05/09 11:13 Order name: EKG - Nurse/Tech; Complete Time: 11:05/09 11:13 Order name: IV Saline Lock; Complete Time: 11:05/09 11:13 Order name: Labs collected and sent; Complete Time: 11:52 05/09 11:13 Order name: O2 Per Protocol; Complete Time: :05/09 11:13 Order name: O2 Sat Monitoring; Complete Time: : rn EC:20 Rate is 73 beats/min. Rhythm is regular. QRS [place] is Normal. UT interval is normal. QRS rn interval is normal. QT interval is normal. No Q waves. T waves are Normal. No ST changes noted. Clinical impression: NSR w/ Non-specific ST/T Changes. Interpreted by me. Reviewed by me. Administered Medications: 14:16 Drug: Aspirin PO Chewable Tablet 324 mg Route: PO; nj1 16:20 Follow up: Response: No adverse reaction nj1 Disposition Summary: 05/09/23 13:50 Hospitalization Ordered Hospitalization Status: Observation rn Provider: Shyam Zepeda rn Location: Telemetry/MedSurg (observation) rn Condition: Stable rn Problem: new rn Symptoms: have improved rn Bed/Room Type: Standard rn Room Assignment: 230(05/09/23 16:25) bd Diagnosis - Chest pain, unspecified rn Forms: - Medication Reconciliation Form rn - SBAR form rn Signatures: Dispatcher [employer] EDMS Cori Cole Roman, MD MD rn Lewis, Lynsay, RN RN 1 Qian Miranda RN RN nj1 Corrections: (The following items were deleted from the chart) 16:25 13:50 rn bd
--- NOTE | 2023-05-09 13:51 | ER ---
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 Coronavirus screen: Vaccine status: Patient reports receiving the 2nd dose of the covid vaccine. Ebola Screen: No symptoms or risks identified at this time. Initial Sepsis Screen: Does the patient meet any 2 criteria? No. Patient's initial sepsis screen is negative. Does the patient have a suspected source of infection? No. Patient's initial sepsis screen is negative. Risk Assessment: Do you want to hurt yourself or someone else? Patient reports no desire to harm self or others. Onset of symptoms was May 09, 2023. 11:19 Method Of Arrival: Ambulatory ph 11:19 Acuity: SIMONE 3 ph Historical: - Allergies: 16:35 No Known Drug Allergies; ll1 - PMHx: 16:35 Gout; Hyperlipidemia; Hypertension; kidney function is low; Sickle Cell Trait; ll1 - Immunization history:: Adult Immunizations up to date. - Social history:: Smoking status: unknown. - Family history:: not pertinent. - Hospitalizations: : No recent hospitalization is reported. Screenin:53 [facility] ED Fall Risk Assessment (Adult) Score/Fall Risk Level 0 - 2 = Low Risk ll1 Oriented to surroundings, Maintained a safe environment, Educated pt \\T\\ family on fall prevention, incl call for assistance when getting out of bed, Hourly rounding (assess needs \\T\\ fall precautionary measures) done. Abuse screen: Denies threats or abuse. Nutritional screening: No deficits noted. Tuberculosis screening: No symptoms or risk factors identified. Assessment: 11:30 General: Appears in no apparent distress. comfortable, Behavior is calm, cooperative, nj1 appropriate for age. Pain: Complains of pain in chest Pain does not radiate. Pain currently is 5 out of 10 on a pain scale. Pain began "This morning". Neuro: Level of Consciousness is awake, alert, obeys commands, Oriented to person, place, time, situation. Cardiovascular: Reports chest pain, Patient's skin is warm and dry. Respiratory: Airway is patent Respiratory effort is even, unlabored. 12:39 Reassessment: Patient appears in no apparent distress at this time. Patient and/or nj1 family updated on plan of care and expected duration. Pain level reassessed. Patient is alert, oriented x 3, equal unlabored respirations, skin warm/dry/pink. 14:00 Reassessment: Not in room at this time. In radiology. nj1 14:17 Reassessment: Patient appears in no apparent distress at this time. Patient and/or nj1 family updated on plan of care and expected duration. Pain level reassessed. Patient is alert, oriented x 3, equal unlabored respirations, skin warm/dry/pink. Patient states feeling better. 16:15 Reassessment: Patient appears in no apparent distress at this time. Patient and/or nj1 family updated on plan of care and expected duration. Pain level reassessed. Patient is alert/active/playful, equal unlabored respirations, skin warm/dry/pink. 16:21 Reassessment: No changes from previously documented assessment. Patient and/or family db updated on plan of care and expected duration. Pain level reassessed. 16:56 Reassessment: No changes from previously documented assessment. Patient and/or family ll1 updated on plan of care and expected duration. Pain level reassessed. Patient is alert, oriented x 3, equal unlabored respirations, skin warm/dry/pink. Vital Signs: 11:19 BP 136 / 72; Pulse 75; Resp 18; Temp 97.5; Pulse Ox 100% on R/A; Weight 108.86 kg; ph Height 5 ft. 7 in. ; 12:34 BP 140 / 79; Pulse 74; Resp 16; Pulse Ox 100% on R/A; nj1 14:17 BP 133 / 72; Pulse 68; Resp 17; Pulse Ox 100% on R/A; Pain 3/10; nj1 16:14 BP 138 / 72; Pulse 70; Resp 16; Pulse Ox 100% ; Pain 0/10; nj1 16:57 BP 150 / 71; Pulse 73; Resp 17; Pulse Ox 100% on R/A; ll1 11:19 Body Mass Index 37.59 (108.86 kg, 170.18 cm) ph 14:17 Pain Scale: Adult nj1 16:14 Pain Scale: Adult nj1 ED Course: 11:02 Patient arrived in ED. mr 11:04 Jairon Zepeda MD is Attending Physician. rn 11:21 Triage completed. ph 11:21 Arm band placed on Patient placed in an exam room, on a stretcher, on night monitor, ph on pulse oximetry. EKG completed in triage. Results shown to MD. 11:25 Qian Miranda, RN is Primary Nurse. nj1 11:30 Inserted saline lock: 22 gauge in right forearm, using aseptic technique. Blood nj1 collected. 13:25 XRAY Chest (1 view) In Process Unspecified. EDMS 13:50 Shyam Zepeda MD is Hospitalizing Provider. rn 14:08 XRAY Chest Pa And Lat (2 Views) In Process Unspecified. EDMS 16:53 No provider procedures requiring assistance completed. Patient admitted, IV remains in ll1 place. Patient maintains SpO2 saturation greater than 95% on room air. 16:54 Provided Education on: n/a. Client placed on continuous cardiac and pulse oximetry ll1 monitoring. NIBP monitoring applied. night monitor on. 16:54 Patient has correct armband on for positive identification. Bed in low position. Call ll1 light in reach. Client placed on continuous cardiac and pulse oximetry monitoring. NIBP monitoring applied. night monitor on. Administered Medications: 14:16 Drug: Aspirin PO Chewable Tablet 324 mg Route: PO; nj1 16:20 Follow up: Response: No adverse reaction nj1 Medication: 16:54 VIS not applicable for this client. ll1 Outcome: 13:50 Decision to Hospitalize by Provider. rn 16:53 Admitted to Med/surg accompanied by tech, via wheelchair, room 230, with chart, Report ll1 called to AMBER Colon 16:53 Condition: stable 16:53 Instructed on the need for admit. 17:50 Patient left the ED. db Signatures: Dispatcher [facility] Dontrell Monse mr Jairon Zepeda MD MD rn Hall, Patricia, RN RN ph Lewis, Lynsay RN RN ll1 Kalli Leiva RN RN db Qian Miranda, RN RN nj1 Corrections: (The following items were deleted from the chart) 12:35 12:34 Pulse 74bpm; Resp 14bpm; [place] [id number] 12:39 12:34 Pulse 74bpm; Resp 16bpm; Pulse Ox 100% RA; [place] [id number] 16:20 14:17 Pulse 68bpm; Resp 17bpm; Pulse Ox 100% RA; Pain 3/10, Adult; [place] [address] 16:20 16:14 Pulse 70bpm; Resp 16bpm; Pulse Ox 100%; Pain 0/10, Adult; [place] [id number]
[2023-05-09] MEDS ORDERED: ASPIRIN 81 MG CHEWABLE TABLET ONE (14:10)
--- NOTE | 2023-05-09 14:31 | RAD REPORT ---
EXAM DESCRIPTION: Pramod Diaz And Amisha (2 Views)05/09/2023 2:06 pm CLINICAL HISTORY: Chest pain COMPARISON: May 09, 2023 FINDINGS: The right base is clear The lungs appear clear of acute infiltrate. The heart is normal size IMPRESSION: No acute abnormalities displayed
[2023-05-09] MEDS ORDERED: ACETAMINOPHEN 325 MG TABLET PO PRN (15:04)
[2023-05-09] MEDS ORDERED: HYDROCODONE/APAP 5/325 MG TAB PO PRN (15:04)
[2023-05-09] MEDS ORDERED: ONDANSETRON 4 MG/2 ML VIAL IV PRN (16:06)
--- NOTE | 2023-05-09 16:09 | P.HP ---
Certification for Inpatient Patient admitted to: Inpatient With expected LOS: >2 Midnights Patient will require the following post-hospital care: None Practitioner: I am a practitioner with admitting privileges, knowledge of patient current condition, hospital course, and medical plan of care. Services: Services provided to patient in accordance with Admission requirements found in Title 42 Section 412.3 of the Code of Federal Regulations Patient History Date of Service: 05/09/23 Reason for admission: Chest pain. History of Present Illness: Patient is a 62-year-old female with a past medical history significant for gout, hypertension, CKD, hyperlipidemia, DELFINA, GERD who presents with complaint of substernal chest pain onset this morning. Patient reported that chest pain subsided after some minutes. After about 3 hours patient started having chest pain again. Patient rated pain as 10/10 in severity and described pain as sharp in quality. Patient reported associated signs and symptoms of shortness of breath, headache, weakness and fatigue. Patient denies any other signs and symptoms. Symptoms are aggravated or relieved by nothing. Patient decided to present to the hospital for medical evaluation. Allergies No Known Drug Allergies Allergy (Verified 12/06/16 11:34) Unknown No Known Allergies Allergy (Uncoded 01/23/17 11:14) Unknown Home Medications: Ferrous Sulfate [Ferrous Sulfate*] 65 mg PO BID 11/22/13 Losartan Potassium [Cozaar] 50 mg PO DAILY 11/22/13 Pravastatin [Pravachol*] 40 mg PO BEDTIME 11/22/13 Furosemide [Lasix*] 20 mg PO DAILY 11/14/14 Lactobacillus Acidophilus [Acidophilus] 5 mg PO DAILY 11/14/14 Acetaminophen [Tylenol Extra Strength] 500 mg PO Q6H PRN 12/06/16 Pantoprazole [Protonix Tab*] 40 mg PO DAILY 05/09/23 - Past Medical/Surgical History Diabetic: No -: HTN -: Hyprlipidemia -: Macular degeneration -: Anemia -: Sickle cell trait -: glaucoma -: -: Lt adenal gland removed -: Varicose vein sx -: Lt rotator cuff -: cyst removal to boith feet -: knee sx, fluid removal - Family History Mother -: Heart disease, Hypertension - Social History Smoking Status: Never smoker Alcohol use: No CD- Drugs: No Caffeine use: Yes Place of Residence: Home Review of Systems General: Weakness, Other (Fatigue) Eyes: Unremarkable ENT: Unremarkable Respiratory: Shortness of Breath Cardiovascular: Chest Pain Gastrointestinal: Unremarkable Genitourinary: Unremarkable Musculoskeletal: Unremarkable Integumentary: Unremarkable Neurological: Other (Headache) Lymphatics: Unremarkable Physical Examination - Physical Exam General: Alert, In no apparent distress, Oriented x3, Cooperative HEENT: Atraumatic, PERRLA, Mucous membr. moist/pink, EOMI, Sclerae nonicteric Neck: Supple, 2+ carotid pulse no bruit, No LAD, Without JVD or thyroid abnormality Respiratory: Clear to auscultation bilaterally, Normal air movement Cardiovascular: No edema, Regular rate/rhythm, Normal S1 S2 Capillary refill: <2 Seconds Gastrointestinal: Normal bowel sounds, Non-distended, No tenderness Musculoskeletal: No clubbing, No swelling, No tenderness Integumentary: No rashes, No breakdown, No significant lesion Neurological: Normal speech, Normal tone, Normal affect Lymphatics: No axilla or inguinal lymphadenopathy - Studies Laboratory Data (last 24 hrs) 05/09/23 11:30: Magnesium 2.1 05/09/23 11:30: PT 12.4, INR 1.13 05/09/23 11:30: WBC 8.70, Hgb 10.9 L, Hct 33.5 L, Plt Count 240 05/09/23 11:30: Sodium 136, Potassium 5.1, BUN 31 H, Creatinine 2.05 H, Glucose 86, Total Bilirubin 0.5, AST 12 L, ALT 23, Alkaline Phosphatase 74 Assessment and Plan - Plan --Chest pain. Likely atypical. Serial troponins negative so far. Echocardiogram pending to assess cardiac structures and function. Cardiology consulted. We will further recommendations. --CKD 3B. Creatinine depreciated from 1.55 on April 12 to 2.05. Nephrology consulted. We will further recommendations. --GERD. Continue Protonix. --DELFINA. Continue ferrous sulfate. --Hyperlipidemia. Continue statin. --Gout. Continue home medication. --Headache. Tylenol as needed. --Hypertension. Poorly controlled. Continue home medications and hydralazine as needed. --Class II obesity. Likely secondary to excess calories intake. Patient counseled on weight reduction, diet and excise therapy. --DVT prophylaxis with Lovenox subQ. Discharge Plan: Home Plan to discharge in: Greater than 2 days - Advance Directives Does patient have a Living Will: No Does patient have a Durable POA for Healthcare: No - Code Status/Comfort Care Code Status Assessed: Yes Physician Review: Patient Assessed, Agree with Above Assessment and Plan Critical Care: No
[2023-05-09 16:53] LABS: Magnesium 2.1 mg/dL (1.6-2.4); Phosphorus 3.3 mg/dL (2.5-4.9); Thyroid Stimulating Hormone 1.67 uIU/mL (0.358-3.740); Troponin High Sensitivity 9.5 pg/mL (<58.9)
[2023-05-09 17:55] VITALS: O2SAT 100
[2023-05-09 18:11] VITALS: BMI 37.5
--- NOTE | 2023-05-09 18:31 | CON ---
Date of Consultation: 05/09/2023 Reason For Consultation: Chest pain. History Of Present Illness: This is a 62-year-old female with history of hypertension, dyslipidemia, no cardiac disease, presented with chest pain, was retrosternal, sharp, went through her back and la sted for about 30 minutes, and then she decided to leave the house and then she had it again, so she presented to the emergency room. Since she got into the emergency room, she has no further chest yoly n. Denies having exertional chest pain or shortness of breath. No nausea, vomiting, or diaphoresis. Past Medical History: As outlined above in the HPI. Medications: Refer to reconciliation sheet for detailed list. Allergies: NO KNOWN DRUG ALLERGIES. Family History: No premature coronary artery disease or cancer. Social History: She does not smoke or drink. Does not use any drugs. Review of Systems: All systems reviewed and they were negative except what mentioned in HPI. Physical Examination: Vital Signs: Reviewed. Head and Neck: Pupils are equal, reactive to light. Intact eye movements. No JVD. No cervical lym phadenopathy. Neck is supple. Thyroid is not enlarged. Lungs: Clear to auscultation bilaterally. No rhonchi, wheezing, or crackles. No accessory muscle u se. Heart: Regular rate and rhythm. No extra sounds. Abdomen: Soft, nontender. Bowel sounds positive. No organomegaly. No masses or hernia. No rigidi ty or rebound. Extremities: No edema, clubbing, or cyanosis. Intact pulses. Skin: No rash. Neurologic: Alert, awake, oriented x3. No acute focal deficits appreciated. Investigations: Cardiac enzymes x2 are negative. BUN is 31, creatinine is 2.05, and hemoglobin is 1 0.9. Assessment And Recommendations: 1.Chest pain, atypical, but with risk factors including dyslipidemia and her age. Observe overnight , trend troponin, obtain an echocardiogram in the morning, and further plan accordingly. If troponin s are negative, the patient can be released and follow up as an outpatient for a stress test which wi ll be done as an outpatient. 2.Renal failure. Unsure if this is acute or chronic. Recommend Nephrology evaluation. 3.Hypertension. Blood pressure is controlled. Continue home medications. SR/MODL Voice ID: [id number] Report ID: [id number]
[2023-05-09] MEDS ORDERED: ACETAMINOPHEN 500 MG TAB PO PRN (19:10)
[2023-05-09] MEDS ORDERED: HYDRALAZINE HCL 20 MG/ML VIAL IV PRN (19:23)
[2023-05-09] MEDS: FERROUS SULFATE 325 MG TAB PO SCH (20:18)
[2023-05-09] MEDS ORDERED: ATORVASTATIN 10 MG TAB PO SCH (21:00)
[2023-05-10 04:04] LABS: Absolute Lymphocytes (CBC) 2.7 K/uL (0.7-4.9); Hematocrit 31.2 % (36.0-45.0); Lymphocytes % 28.3 % (15.3-44.8); MCV 90.5 fL (80-100); MPV 11.4 fL (7.6-11.3); RBC Red Blood Cell Count 3.44 M/uL (3.86-4.86)
[2023-05-10 04:14] LABS: Potassium 4.7 mEq/L (3.5-5.1)
--- NOTE | 2023-05-10 07:28 | P.PN ---
Date of Service: 05/10/23 Subjective: feeling better today denies chest pain, went away sometime yesterday in the ER otherwise no new / worsening problems ROS: 10 point ROS as noted above, otherwise negative Physical Exam: GEN: Alert, oriented, NAD HEENT: Normal conjunctiva, sclera anicteric CV: Regular rate and rhythm, no edema Pulm: Nonlabored respirations on room air ABD: Soft, nontender, nondistended MSK: No joint tenderness Integumentary: No rashes Neuro: Normal speech, normal affect vitals reviewed Problem List: Chest pain CKD 3B GERD DELFINA Hyperlipidemia Gout Headache Hypertension Chest pain Likely atypical. Serial troponins negative so far. Echo pending Cardiology consulted. CKD 3B Creatinine depreciated from 1.55 on April 12 to 2.05. Nephrology consulted. GERD. Continue Protonix. DELFINA. Continue ferrous sulfate. Hyperlipidemia. Continue statin. Gout. Continue home medication. Headache. Tylenol as needed. Hypertension. Poorly controlled. Continue home medications and hydralazine as needed. VTE: Lovenox Code: Full Dispo: Home
[2023-05-10] MEDS ORDERED: PANTOPRAZOLE 40MG TABLET PO SCH (07:30)
[2023-05-10] MEDS ORDERED: ASPIRIN 81 MG CHEWABLE TABLET PO SCH (09:00)
[2023-05-10] MEDS ORDERED: FUROSEMIDE 20 MG TABLET PO SCH (09:00)
[2023-05-10] MEDS ORDERED: ENOXAPARIN 30 MG/0.3 ML SQ SCH (09:00)
[2023-05-10] MEDS ORDERED: LACTOBACILLUS/ACIDOPHILUS TAB PO SCH (09:00)
--- NOTE | 2023-05-10 09:20 | P.DS ---
Admission Date: 05/09/23 Discharge Date: 05/10/23 Disposition: ROUTINE DISCHARGE Discharge Condition: GOOD Reason for Admission: Chest pain. Consultations: Cardiology - Dr. Moulton Nephrology - Dr. Stevenson Brief History of Present Illness: 62yo F, PMH: gout, hypertension, CKD, hyperlipidemia, DELFINA, GERD Patient presents with complaint of substernal chest pain onset this morning. Patient reported that chest pain subsided after some minutes. After about 3 hours patient started having chest pain again. Patient rated pain as 10/10 in severity and described pain as sharp in quality. Patient reported associated signs and symptoms of shortness of breath, headache, weakness and fatigue. Patient denies any other signs and symptoms. Symptoms are aggravated or relieved by nothing. Hospital Course: Problem List: Chest pain CKD 3B GERD DELFINA Hyperlipidemia Gout Headache Hypertension Patient presented with sharp chest pain and shortness of breath. Troponins were negative x3. Chest xray showed no acute abnormalities. Patients reported chest pain went away while in the ED. Cardiology was consulted and felt there was no further inpatient testing/procedures warranted at this time. On day of discharge, patient was feeling better and no longer in any chest pain. Patient is to follow up with Cardiology in the office within 1-2 weeks for an outpatient stress test and echocardiogram Patient did report a history of GERD / gastric ulcer and has been taking protonix as prescribed. She reported this has been stable. Discussed if cardiac workup is normal, her pain may be due to a ulcer/GERD given her previous history and should follow up with GI if needed for further evaluation/management. new / change in prescriptions: Continue home medications as previously prescribed no change in medications Follow up: PCP 3-5 days Cardiology within 1-2 weeks Physical Exam: GEN: Alert, oriented, NAD HEENT: Normal conjunctiva, sclera anicteric CV: Regular rate and rhythm, no edema Pulm: Nonlabored respirations on room air ABD: Soft, nontender, nondistended MSK: No joint tenderness Integumentary: No rashes Neuro: Normal speech, normal affect Vital Signs/Physical Exam: Temp Pulse Resp BP Pulse Ox 98 F 65 16 144/66 H 98 05/10/23 08:00 05/10/23 08:00 05/10/23 08:00 05/10/23 08:00 05/10/23 08:00 Laboratory Data at Discharge: WBC 9.70 thou/uL (4.3-10.9) 05/10/23 03:04 Hgb 10.3 g/dL (12.0-15.0) L 05/10/23 03:04 Hct 31.2 % (36.0-45.0) L 05/10/23 03:04 Plt Count 219 thou/uL (152-406) 05/10/23 03:04 PT 12.4 SECONDS (9.5-12.5) 05/09/23 11:30 INR 1.13 05/09/23 11:30 Sodium 138 mEq/L (136-145) 05/10/23 03:04 Potassium 4.7 mEq/L (3.5-5.1) 05/10/23 03:04 BUN 29 mg/dL (7-18) H 05/10/23 03:04 Creatinine 1.76 mg/dL (0.55-1.02) H 05/10/23 03:04 Glucose 96 mg/dL (74-106) 05/10/23 03:04 Phosphorus 3.3 mg/dL (2.5-4.9) 05/09/23 16:12 Magnesium 2.1 mg/dL (1.6-2.4) 05/09/23 16:12 Total Bilirubin 0.5 mg/dL (0.2-1.0) 05/09/23 11:30 AST 12 U/L (15-37) L 05/09/23 11:30 ALT 23 U/L (13-56) 05/09/23 11:30 Alkaline Phosphatase 74 U/L (45-117) 05/09/23 11:30 Triglycerides 156 mg/dL (<150) H 05/10/23 03:04 Cholesterol 154 mg/dL (<200) 05/10/23 03:04 HDL Cholesterol 28 mg/dL (40-60) L 05/10/23 03:04 Cholesterol/HDL Ratio 5.50 05/10/23 03:04 Home Medications: Ferrous Sulfate [Ferrous Sulfate*] 65 mg PO BID 11/22/13 Losartan Potassium [Cozaar] 50 mg PO DAILY 11/22/13 Pravastatin [Pravachol*] 40 mg PO BEDTIME 11/22/13 Furosemide [Lasix*] 20 mg PO DAILY 01/24/15 Lactobacillus Acidophilus [Acidophilus] 5 mg PO DAILY 11/14/14 Acetaminophen [Tylenol Extra Strength] 500 mg PO Q6H PRN 12/06/16 Pantoprazole [Protonix Tab*] 40 mg PO DAILY 05/09/23 Physician Discharge Instructions: Patient presented with sharp chest pain and shortness of breath. Troponins were negative x3. Chest xray showed no acute abnormalities. Patients reported chest pain went away while in the ED. Cardiology was consulted and felt there was no further inpatient testing/procedures warranted at this time. On day of discharge, patient was feeling better and no longer in any chest pain. Patient is to follow up with Cardiology in the office within 1-2 weeks for an outpatient stress test and echocardiogram Patient did report a history of GERD / gastric ulcer and has been taking protonix as prescribed. She reported this has been stable. Discussed if cardiac workup is normal, her pain may be due to a ulcer/GERD given her previous history and should follow up with GI if needed for further evaluation/management. new / change in prescriptions: Continue home medications as previously prescribed no change in medications Follow up: PCP 3-5 days Cardiology within 1-2 weeks Followup: Karlee Colvin MD [Primary Care Provider] - Time spent managing pt's care (in minutes): 45
[2023-05-10] MEDS: FERROUS SULFATE 325 MG TAB PO SCH (09:53)
[2023-05-10 12:54] VITALS: BP 140/80; TEMP 97.5
--- NOTE | 2023-05-10 16:54 | PN ---
Date of Progress Note: 05/10/2023 Subjective: Seen by bedside. Doing well. No further chest pain. Review of Systems: No chest pain, shortness of breath, orthopnea, and cough. No nausea, vomiting, diarrhea. All other systems reviewed and they were negative. Physical Examination: Vital Signs: Reviewed. Head and Neck: Pupils are equal, reactive to light. Intact eye movements. No JVD. No cervical lym phadenopathy. Neck is supple. Thyroid is not enlarged. Lungs: Clear to auscultation bilaterally. No rhonchi, wheezing, or crackles. No accessory muscle u se. Heart: Regular rate and rhythm. No extra sounds. Abdomen: Soft, nontender. Bowel sounds positive. No organomegaly. No masses or hernia. No rigidi ty or rebound. Extremities: No edema, clubbing, or cyanosis. Intact pulses. Skin: No rash. Neurologic: Alert, awake, oriented x3. No acute focal deficits appreciated. Investigations: BUN 29, creatinine 0.76. Cardiac enzymes x3 are negative. Hemoglobin is 10.3. Assessment And Recommendations: 1.Chest pain. Myocardial infarction was ruled out. No further chest pain. The patient can be rele ased to follow up with me in the office for exercise nuclear stress test and an echo as outpatient. 2.Acute renal failure. Responded well to hydration. 3.Dyslipidemia. Continue statin. 4.Hypertension. Blood pressure is controlled. From Cardiology standpoint, the patient can be released to follow up as an outpatient. SR/MODL Voice ID: [id number] Report ID: [id number]
--- NOTE | 2023-05-11 03:09 | CON ---
Date of Consultation: 05/10/2023 Chief Complaint: Chronic kidney disease. History Of Present Illness: The patient is a 62-year-old woman with past medical history significant for gout, hypertension, chronic kidney disease. The patient has history of GERD and she came on license of [facility] of chest pain. She was complaining of substernal chest pain. Patient denied hemoptysis, cough and shortness of breath. She was complaining of some weakness, but this resolved in the ER. The patien t was admitted for cardiac evaluation. She has history of chronic kidney disease and she denies kirstie l colic. Past Medical History: Include hypertension, hyperlipidemia, macular degeneration, anemia, chronic si ckle cell trait, glaucoma, , left adrenal gland removal, varicose vein surgery, left rotator cuff surgery, cyst removal from both feet, knee surgery and fluid removal, joint aspiration. Family History: Mother, heart disease, hypertension. Social History: Denies tobacco, alcohol, or illicit drugs. Review of Systems: Constitutional: Complains of weakness, fatigue. Eyes: Denies vision changes. Ears, Nose, Mouth and Throat: Denies sore throat or earache. Respiratory: Denies shortness of breath. Chest pain resolved. GI: Denies nausea or vomiting. : Denies dysuria or hematuria. Neurological: Denies headache or vision changes. Physical Examination: General: The patient is awake, alert, follows commands. Eyes: Anicteric sclerae. EOMI. Ears, Nose, Mouth and Throat: Oral mucosa moist. No pallor. Neck: Supple. No bruits. Lungs: Diminished breath sounds at bases. Heart: S1-S2. Abdomen: Soft, benign. Extremities: Minimal edema. Laboratory Data: PT 12.4, INR 1.13, magnesium 2.1. WBC 8.7, hemoglobin 10.9, platelet count 240. S odium 136, potassium 5.1, BUN 31, creatinine 2.05, glucose 86, AST 12, ALT 23. Impression And Plan: 1.The patient presented to the hospital because of chest pain. She underwent a stress test. Echoca rdiogram is pending. The patient is to have further workup outpatient. The patient has chronic kidn ey disease stage 3B. Creatinine level was 1.55 back in March and currently is up to 2.05. The patien t developed prerenal azotemia, cardiorenal syndrome in setting of chest pain and likely acute coronar y syndrome. Continue to monitor closely. Patient does not have overt fluid overload. Diuretic on h old. Avoid nephrotoxic medication. Patient denies nonsteroidal antiinflammatory medication. 2.Gout. Continue current medication for gout. Patient does not have active gout flare. 3.Hypertension. Continue medication and hydralazine was added. 4.Headache. Patient currently denies complaints of headache. 5.Chronic kidney disease. The patient will follow up with Nephrology outpatient for further workup including proteinuria workup. 6.Anemia. The patient has hemoglobin of 10.3 to 10.9. The patient does not require FILIPPO. Continue to monitor hemoglobin level. 7.Acute kidney injury. Serum creatinine level is improving today to 1.76. The patient had borderli ne hyperkalemia, potassium was up to 5.1. Today is 4.7. There is no evidence of metabolic acidosis. Bicarbonate is stable. EB/MODL Voice ID: [id number] Report ID: [id number]
== END 2023-05-10 13:59 | disposition home or self-care (01) ==
LOC: ER 11:01 → ERHOLD 15:07 → 2ND 16:59
PROVIDERS: ADMIT Hospitalist; ATTEND Hospitalist
DX: R07.9 Chest pain, unspecified (principal); I12.9 Hypertensive chronic kidney disease with stage 1 through stage 4 chronic kidney disease, or unspecified chronic kidney disease; N18.32 Chronic kidney disease, stage 3b; K21.9 Gastro-esophageal reflux disease without esophagitis; E78.5 Hyperlipidemia, unspecified; R51.9 Headache, unspecified; M10.9 Gout, unspecified; E66.9 Obesity, unspecified; Z68.37 Body mass index [BMI] 37.0-37.9, adult; N19 Unspecified kidney failure; D63.1 Anemia in chronic kidney disease; D50.9 Iron deficiency anemia, unspecified; R06.02 Shortness of breath
CPT/HCPCS: 85025 ×2; 80048 ×2; 36415; 83735 ×2; 84100; 85610; 80061; 80076; 84443; 84484 ×3; 84439; 83880; 71045; 71046; 99285; J1650; G0378

== ENCOUNTER 2024-04-18 08:03 | Emergency (ER) | payer MEDICARE ==
--- OUTSIDE RECORDS SUMMARY | 2024-04-18 08:07 | XMS REPORT | Continuity of Care Document ---
Author Name Unknown Address [address] [facility] [address] [place] [id number] [facility] Address [address] [facility] [address] [place] [address] Care Team Providers Care Benefits Specialist Name Role Phone Sudha Traore Primary Care Physician [phone] Karlee Colvin Attending Clinician Unavailable Sudha Traore Attending Clinician Unavailable Azar Watson Attending Clinician Unavailable Marissa Rodriguez Attending Clinician Unavailable Anabelle Malik Attending Clinician [phone] Madonna Talavera Attending Clinician GC_GCBZW_Kadiyala_S Attending Clinician Unavaila augustin Doctor Unassigned, [place] Attending Clinician SHILPA Gimenez Attending Clinician Unavailable Taj_Ranjit Attending Clinician Unavailable Shilpa Bourgeois PA-C Attending Clinician [email or web address]_Kadiyala_S Admitting Clinician Unavaila augustin Vang_R Admitting Clinician Unavailable Payers Payer Name Policy Type Policy Number Effective Date Expirati on Date Source [employer] (MEDICARE REPLACEMENT HMO) [id number] 2021 00:00:00 [employer] Medicare Replace C1 [id number] [facility] [employer] Medicare Replace C1 [id number] [facility] [employer] Medicare Replace C1 [id number] [facility] [employer] Medicare Replace C1 [id number] [facility] [employer] Medicare Replace C1 [id number] [facility] Problems Condition Name Condition Details Condition Category Status Onset Date Resolution Date Last Treatment Date Treating Clinician Comments Source Essential hypertensi on, benign Essential hypertensi on, benign Disease Active 04-08 00:00: 00 [facility] Hyperlipid emia Hyperlipid emia Disease Active 04-08 00:00: 00 [facility] Venous (periphera l) insufficie ncy Venous (periphera l) insufficie ncy Disease Active 05-12 00:00: 00 Overview: Formattin g of this note might be different from the original. 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 [id number] Family history of heart disease Problem [facility] Mixed hyperlipid emia Hyperlipid emia, mixed Problem [facility] Polyp colon Polyp of colon, unspecifie d part of colon, unspecifie d type Problem [facility] [id number] Generalize d weakness Problem [facility] [id number] Polyarthra lgia Problem [facility] Sickle cell trait Sickle-mateo l trait Problem [facility] [id number] Hyperurice davy Problem [facility] Pulmonary hypertensi on Pulmonary hypertensi on Problem [facility] [id number] Diverticul osis large intestine w/o perforatio n or abscess w/o bleeding Problem [facility] [id number] Pain in left foot Problem [facility] Iron deficiency anemia due to chronic blood loss Iron deficiency anemia due to chronic blood loss Problem Common [facility] [id number] Diverticul osis Problem Common [facility] Heel pain Heel pain Problem Comm on [facility] Glaucoma Glaucoma of both eyes, unspecifie d glaucoma type Problem [facility] [id number] Pain in left leg Problem Common [facility] [id number] Pain in right leg Problem [facility] [id number] Tiredness Problem Comm on [facility] [id number] Legal blindness Problem [facility] [id number] Acute midline low back pain with left-sided sciatica Problem [facility] [id number] Acute gout of right foot, unspecifie d cause Problem [facility] Gout Gout Problem [facility] [id number] Urinary frequency Problem [facility] [id number] Depression with anxiety Problem [facility] [id number] 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, unspecifie d type Problem [facility] Blindness AND/OR vision impairment level (disorder) Blindness and low vision Problem [facility] Chronic kidney disease stage 3A Stage 3a chronic kidney disease Problem Common [facility] [id number] Left adrenal mass Problem Common [facility] [id number] History of colon polyps Problem Common [facility] [id number] Gastroesop hageal reflux disease, unspecifie d whether esophagiti s present Problem [facility] [id number] Other chronic pain Problem [facility] [id number] Injury of left acromiocla vicular joint, subsequent encounter Problem Common [facility] [id number] Pain, joint, shoulder, right Problem Common [facility] 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 Problem Common [facility] [id number] Mild intermitte nt asthma without complicati on Problem [facility] Chronic kidney disease stage 3B (disorder) Stage 3b chronic kidney disease (CKD) Problem [facility] [id number] Pain in right foot Problem [facility] [id number] Memory changes Problem [facility] [id number] Pain, joint, ankle, right Problem [facility] [id number] Pain in left ankle and joints of left foot Problem [facility] [id number] Anemia in chronic kidney disease Problem [facility] Varicose vein Varicose vein Problem [facility] [id number] Morbid (severe) obesity due to excess calories Problem [facility] Chronic renal disease Chronic kidney disease, unspecifie d CKD stage Problem [facility] Essential hypertensi on Essential hypertensi on Problem [facility] [id number] Morbid obesity Problem [facility] [id number] Iron deficiency anemia, unspecifie d iron deficiency anemia type Problem [facility] [id number] Rash and nonspecifi c skin eruption Problem [facility] [id number] Varicose veins of both lower extremitie s, unspecifie d whether complicate d Problem [facility] Obesity Obesity Problem [facility] Allergies, Adverse Reactions, Alerts Allergy Name Allergy Type Status Severity Reaction(s) Onset Date Inactive Date Treating Clinician Comments Source NO KNOWN ALLERGIE S Drug Class Active [facility] Social History Social Habit Start Date Stop Date Quantity Comments Source History of Tobacco Use [facility] Sex Assigned At [facility] Exposure to SARS-CoV-2 (event) Not sure [facility] Alcohol intake 2021-06-15 00:00:00 2021-06-15 00:00:00 Current non-drinker of alcohol (finding) [facility] Tobacco use and exposure 2010-12-11 00:00:00 2010-12-11 00:00:00 Smokeless tobacco non-user [facility] Smoking Status Start Date Stop Date Source Never Smoker [facility] Medications Ordered Medication Name Filled Medication Name Start Date Stop Date Current Medication? Ordering Clinician Indication Dosage Frequency Signature (SIG) Comments Components Source Lidocaine Lidocaine 2021-10 00:00: 00 No 20mg [facility] Kenalog (Triamcinol one) Kenalog (Triamcinol one) 2021-10 00:00: 00 No 40mg [facility] losartan (COZAAR) 25 mg tablet 01-13 13:56: 11 Yes 25mg Take 25 mg by mouth daily. [facility] Cholecalcif greg, Vitamin D3, (VITAMIN D3) 1,000 unit Cap 01-13 13:56: 11 Yes 1{capsu le} Take 1 Cap by mouth daily. [facility] aspirin (ASPIRIN CHILDRENS) 81 mg chewable tablet 01-13 13:56: 11 Yes 81mg Take 81 mg by mouth daily. [facility] losartan (COZAAR) 25 mg tablet 01-13 08:56: 11 Yes 25mg Take 25 mg by mouth daily. [facility] Cholecalcif greg, Vitamin D3, (VITAMIN D3) 1,000 unit Cap 01-13 08:56: 11 Yes 1{capsu le} Take 1 Cap by mouth daily. [facility] aspirin (ASPIRIN CHILDRENS) 81 mg chewable tablet 01-13 08:56: 11 Yes 81mg Take 81 mg by mouth daily. [facility] buPROPion 100 mg tablet 2019-10 00:00: 00 Yes 100mg Take [address] [facility] triamcinolo ne 0.1 % lotion 04-12 00:00: 00 Yes Apply to area(s) 3 (three) times daily. [facility] losartan (COZAAR) 25 mg tablet 04-08 16:22: 43 Yes 25mg Take 25 mg by mouth daily. [facility] Cholecalcif greg, Vitamin D3, (VITAMIN D3) 1,000 unit Cap 04-08 15:54: 30 Yes 1{capsu le} Take 1 Cap by mouth daily. [facility] aspirin (ASPIRIN CHILDRENS) 81 mg chewable tablet 04-08 15:54: 30 Yes 81mg Take 81 mg by mouth daily. [facility] metoprolol tartrate (LOPRESSOR) 100 mg tablet 04-19 00:00: 00 Yes 100mg Take 1 Tab by mouth daily. [facility] pravastatin (PRAVACHOL) 40 mg tablet 12-09 00:00: 00 Yes 40mg Take 40 mg by mouth 2 (two) times daily. [facility] ferrous sulfate (IRON) 325 mg (65 mg Iron) tablet 12-09 00:00: 00 Yes 325mg Take 325 mg by mouth daily. [facility] Furosemide 20 MG Furosemide 20 MG No 1{table t} QD Furosemide 20 MG Linzess 145 MCG Linzess 145 MCG No Linzess 145 MCG Triamcinolo ne Acetonide 0.1 % Triamcinolo ne Acetonide 0.1 % No 1{appli cation} BID Triamcinol one Acetonide 0.1 % Allopurinol 100 MG Allopurinol 100 MG No QD Allopurino l 100 MG buPROPion HCl ER (XL) 300 MG buPROPion HCl ER (XL) 300 MG No 1{table t_in_th e_morni ng} QD buPROPion HCl ER (XL) 300 MG Albuterol Sulfate (2.5 MG/3ML) 0.083% Albuterol Sulfate (2.5 MG/3ML) 0.083% No 3{ml_as _needed } QID Albuterol Sulfate (2.5 MG/3ML) 0.083% Pantoprazol e Sodium 40 MG Pantoprazol e Sodium 40 MG No 1{table t} QD Pantoprazo le Sodium 40 MG Aspir-81 81 MG Aspir-81 81 MG No 1{table t} QD Aspir-81 81 MG Lumigan 0.01 % Lumigan 0.01 % No 1{drop_ into_af fected_ eye_in_ the_eve annel} QD Lumigan 0.01 % Olmesartan Medoxomil 40 MG Olmesartan Medoxomil 40 MG No 1{table t} QD Olmesartan Medoxomil 40 MG Simvastatin 20 mg Simvastatin 20 mg No 1{table t_in_th e_eveni ng} QD Simvastati n 20 mg Gabapentin 100 MG Gabapentin 100 MG No Gabapentin 100 MG Albuterol Sulfate HFA 108 (90 Base) MCG/ACT Albuterol Sulfate HFA 108 (90 Base) MCG/ACT No Albuterol Sulfate HFA 108 (90 Base) MCG/ACT Ketoconazol e 2 % Ketoconazol e 2 % No 1{appli cation} BID Ketoconazo le 2 % Mupirocin 2 % Mupirocin 2 % No 1{appli cation} BID Mupirocin 2 % amLODIPine Besylate 5 MG amLODIPine Besylate 5 MG No 1{table t} QD amLODIPine Besylate 5 MG Ondansetron HCl 4 MG Ondansetron HCl 4 MG No 1{table t} QD Ondansetro n HCl 4 MG Dicyclomine HCl 20 MG Dicyclomine HCl 20 MG No Dicyclomin e HCl 20 MG Nystatin 961395 UNIT/GM Nystatin 848169 UNIT/GM No 1{appli cation} BID Nystatin 142331 UNIT/GM Cefpodoxime Proxetil 100 MG Cefpodoxime Proxetil 100 MG No Cefpodoxim e Proxetil 100 MG Vital Signs Vital Name Observation Time Observation Value Comments S ource height 2024-04-01 09:40:00 64 [in_i] Commo n [facility] weight 2024-04-01 09:40:00 232.8 [lb_av] Co mmon [facility] temperature 2024-04-01 09:40:00 97.2 [degF] Com mon [facility] bmi 2024-04-01 09:40:00 39.96 kg/m2 Comm on [facility] oximetry 2024-04-01 09:40:00 99 % Commo n [facility] respiratory rate 2024-04-01 09:40:00 16 /min Common [facility] blood pressure systolic 2024-04-01 09:40:00 138 mm[Hg] Common [facility] blood pressure diastolic 2024-04-01 09:40:00 86 mm[Hg] [facility] height 2023-10-12 10:00:00 64 [in_i] Commo n [facility] weight 2023-10-12 10:00:00 242 [lb_av] Comm on [facility] temperature 2023-10-12 10:00:00 97.2 [degF] Com mon [facility] bmi 2023-10-12 10:00:00 41.53 kg/m2 Comm on [facility] oximetry 2023-10-12 10:00:00 98 % Commo n [facility] respiratory rate 2023-10-12 10:00:00 16 /min [facility] blood pressure systolic 2023-10-12 10:00:00 126 mm[Hg] [facility] blood pressure diastolic 2023-10-12 10:00:00 70 mm[Hg] [facility] height 2023-07-11 10:00:00 64 [in_i] Commo n [facility] weight 2023-07-11 10:00:00 240.0 [lb_av] Co mmon [facility] temperature 2023-07-11 10:00:00 97.2 [degF] Com mon [facility] bmi 2023-07-11 10:00:00 41.19 kg/m2 Comm on [facility] oximetry 2023-07-11 10:00:00 99 % Commo n [facility] respiratory rate 2023-07-11 10:00:00 16 /min [facility] blood pressure systolic 2023-07-11 10:00:00 134 mm[Hg] [facility] blood pressure diastolic 2023-07-11 10:00:00 70 mm[Hg] [facility] height 2023-05-28 14:40:00 64 [in_i] Commo n [facility] weight 2023-05-28 14:40:00 240 [lb_av] Comm on [facility] temperature 2023-05-28 14:40:00 97.3 [degF] Com mon [facility] bmi 2023-05-28 14:40:00 41.19 kg/m2 Comm on [facility] oximetry 2023-05-28 14:40:00 99 % Commo n [facility] respiratory rate 2023-05-28 14:40:00 17 /min Common [facility] blood pressure systolic 2023-05-28 14:40:00 134 mm[Hg] Common [facility] blood pressure diastolic 2023-05-28 14:40:00 78 mm[Hg] Common [facility] height 2023-04-06 09:40:00 64 [in_i] Commo n [facility] weight 2023-04-06 09:40:00 242.2 [lb_av] Co mmon [facility] temperature 2023-04-06 09:40:00 97.3 [degF] Com mon [facility] bmi 2023-04-06 09:40:00 41.57 kg/m2 Comm on [facility] oximetry 2023-04-06 09:40:00 98 % Commo n [facility] respiratory rate 2023-04-06 09:40:00 16 /min Common [facility] blood pressure systolic 2023-04-06 09:40:00 138 mm[Hg] Common [facility] blood pressure diastolic 2023-04-06 09:40:00 72 mm[Hg] Common [facility] height 2023-02-07 10:00:00 64 [in_i] Commo n [facility] weight 2023-02-07 10:00:00 246 [lb_av] Comm on [facility] temperature 2023-02-07 10:00:00 97.3 [degF] Com [facility] bmi 2023-02-07 10:00:00 42.22 kg/m2 Comm on [facility] oximetry 2023-02-07 10:00:00 99 % Commo n [facility] respiratory rate 2023-02-07 10:00:00 16 /min Common [facility] blood pressure systolic 2023-02-07 10:00:00 128 mm[Hg] Common [facility] blood pressure diastolic 2023-02-07 10:00:00 74 mm[Hg] [facility] height 2023-01-29 09:00:00 64 [in_i] Commo n [facility] weight 2023-01-29 09:00:00 250 [lb_av] Comm on [facility] temperature 2023-01-29 09:00:00 97.2 [degF] Com [facility] bmi 2023-01-29 09:00:00 42.91 kg/m2 Comm on [facility] blood pressure systolic 2023-01-29 09:00:00 131 mm[Hg] Common [facility] blood pressure diastolic 2023-01-29 09:00:00 71 mm[Hg] Common [facility] height 2022-11-24 08:20:00 64 [in_i] Commo n [facility] weight 2022-11-24 08:20:00 247 [lb_av] Comm on [facility] temperature 2022-11-24 08:20:00 97.6 [degF] Com [facility] bmi 2022-11-24 08:20:00 42.39 kg/m2 Comm on [facility] oximetry 2022-11-24 08:20:00 99 % Commo n [facility] respiratory rate 2022-11-24 08:20:00 16 /min Common [facility] blood pressure systolic 2022-11-24 08:20:00 130 mm[Hg] Common [facility] blood pressure diastolic 2022-11-24 08:20:00 70 mm[Hg] [facility] height 2022-11-08 09:00:00 64 [in_i] Commo n [facility] weight 2022-11-08 09:00:00 246.4 [lb_av] Co mmon [facility] bmi 2022-11-08 09:00:00 42.29 kg/m2 Comm on [facility] height 2022-09-04 11:00:00 64 [in_i] Commo n [facility] weight 2022-09-04 11:00:00 246.4 [lb_av] Co [facility] temperature 2022-09-04 11:00:00 97.3 [degF] Com mon [facility] bmi 2022-09-04 11:00:00 42.29 kg/m2 Comm on [facility] oximetry 2022-09-04 11:00:00 98 % Commo n [facility] respiratory rate 2022-09-04 11:00:00 16 /min [facility] blood pressure systolic 2022-09-04 11:00:00 132 mm[Hg] [facility] blood pressure diastolic 2022-09-04 11:00:00 68 mm[Hg] [facility] height 2022-08-23 09:00:00 64 [in_i] Commo n [facility] weight 2022-08-23 09:00:00 242 [lb_av] Comm on [facility] temperature 2022-08-23 09:00:00 97.3 [degF] Com mon [facility] bmi 2022-08-23 09:00:00 41.53 kg/m2 Comm on [facility] blood pressure systolic 2022-08-23 09:00:00 132 mm[Hg] Common [facility] blood pressure diastolic 2022-08-23 09:00:00 80 mm[Hg] [facility] height 2022-08-02 09:00:00 64 [in_i] Commo n [facility] weight 2022-08-02 09:00:00 242 [lb_av] Comm on [facility] temperature 2022-08-02 09:00:00 97.3 [degF] Com [facility] bmi 2022-08-02 09:00:00 41.53 kg/m2 Comm on [facility] blood pressure systolic 2022-08-02 09:00:00 136 mm[Hg] [facility] blood pressure diastolic 2022-08-02 09:00:00 80 mm[Hg] [facility] height 2022-07-05 10:00:00 64 [in_i] Commo n [facility] weight 2022-07-05 10:00:00 240 [lb_av] Comm on [facility] temperature 2022-07-05 10:00:00 97.1 [degF] Com [facility] bmi 2022-07-05 10:00:00 41.19 kg/m2 Comm on [facility] blood pressure systolic 2022-07-05 10:00:00 136 mm[Hg] [facility] blood pressure diastolic 2022-07-05 10:00:00 84 mm[Hg] [facility] height 2022-05-30 10:00:00 64 [in_i] Commo n [facility] weight 2022-05-30 10:00:00 250.0 [lb_av] Co mmon [facility] temperature 2022-05-30 10:00:00 97.6 [degF] Com [facility] bmi 2022-05-30 10:00:00 42.91 kg/m2 Comm on [facility] oximetry 2022-05-30 10:00:00 97 % Commo n [facility] respiratory rate 2022-05-30 10:00:00 18 /min [facility] blood pressure systolic 2022-05-30 10:00:00 136 mm[Hg] Common [facility] blood pressure diastolic 2022-05-30 10:00:00 70 mm[Hg] [facility] height 2022-02-24 10:00:00 64 [in_i] Commo n [facility] weight 2022-02-24 10:00:00 244.6 [lb_av] Co mmon [facility] temperature 2022-02-24 10:00:00 97.2 [degF] Com [facility] bmi 2022-02-24 10:00:00 41.98 kg/m2 Comm on [facility] oximetry 2022-02-24 10:00:00 98 % Commo n [facility] respiratory rate 2022-02-24 10:00:00 18 /min [facility] blood pressure systolic 2022-02-24 10:00:00 135 mm[Hg] [facility] blood pressure diastolic 2022-02-24 10:00:00 82 mm[Hg] [facility] height 2022-01-16 10:20:00 64 [in_i] Commo n [facility] weight 2022-01-16 10:20:00 240 [lb_av] Comm on [facility] temperature 2022-01-16 10:20:00 97.8 [degF] Com [facility] bmi 2022-01-16 10:20:00 41.19 kg/m2 Comm on [facility] oximetry 2022-01-16 10:20:00 99 % Commo n [facility] respiratory rate 2022-01-16 10:20:00 18 /min Common [facility] blood pressure systolic 2022-01-16 10:20:00 136 mm[Hg] [facility] blood pressure diastolic 2022-01-16 10:20:00 82 mm[Hg] Common [facility] height 2021-11-16 09:00:00 64 [in_i] Commo n [facility] weight 2021-11-16 09:00:00 241 [lb_av] Comm on [facility] bmi 2021-11-16 09:00:00 41.36 kg/m2 Comm on [facility] height 2021-09-09 08:40:00 64 [in_i] Commo n [facility] weight 2021-09-09 08:40:00 241 [lb_av] Comm on [facility] bmi 2021-09-09 08:40:00 41.36 kg/m2 Comm on [facility] height 2021-08-18 09:00:00 64 [in_i] Commo n [facility] weight 2021-08-18 09:00:00 241.0 [lb_av] Co mmon [facility] temperature 2021-08-18 09:00:00 96.9 [degF] Com mon [facility] bmi 2021-08-18 09:00:00 41.36 kg/m2 Comm on [facility] oximetry 2021-08-18 09:00:00 99 % Commo n [facility] respiratory rate 2021-08-18 09:00:00 18 /min Common [facility] blood pressure systolic 2021-08-18 09:00:00 120 mm[Hg] [facility] blood pressure diastolic 2021-08-18 09:00:00 74 mm[Hg] Common [facility] Systolic blood pressure 2021-06-15 14:30:00 131 mm[Hg] [facility] Diastolic blood pressure 2021-06-15 14:30:00 75 mm[Hg] [facility] Heart rate 2021-06-15 14:25:00 78 /min [facility] Body temperature 2021-06-15 14:25:00 36.78 Mateo [facility] Respiratory rate 2021-06-15 14:25:00 18 /min [facility] Body height 2021-06-15 14:25:00 170.2 cm [facility] Body weight 2021-06-15 14:25:00 113.671 kg [facility] BMI 2021-06-15 14:25:00 39.25 kg/m2 [facility] Systolic blood pressure 2021-01-13 13:54:00 125 mm[Hg] [facility] Diastolic blood pressure 2021-01-13 13:54:00 69 mm[Hg] [facility] Heart rate 2021-01-13 13:54:00 75 /min [facility] Body temperature 2021-01-13 13:54:00 36.67 Mateo [facility] Respiratory rate 2021-01-13 13:54:00 16 /min [facility] Body height 2021-01-13 13:54:00 170.2 cm [facility] Body weight 2021-01-13 13:54:00 109.045 kg [facility] BMI 2021-01-13 13:54:00 37.65 kg/m2 [facility] Procedures Procedure Date / Time Performed Performing Clinician Source EXTERNAL PROVIDER RECORDS 2023-03-27 05:01:00 Do ctor Unassigned, [place] [facility] US PELVIS COMPLETE WITH TRANSVAGINAL 2021-05-11 15:20:44 Shilpa Bourgeois [facility] ASSIGNMENT OF BENEFITS 2021-05-11 13:41:33 Docto r Unassigned, [place] [facility] EXTERNAL PROVIDER RECORDS 2021-01-24 05:01:00 Do ctor Unassigned, [place] [facility] INSURANCE CORRESPONDENCE 2021-01-19 05:01:00 Doc tor Unassigned, [place] [facility] AUTHORIZATION TO RELEASE PHI TO [facility] 2021-01-13 05:01:00 Doctor Unassigned, [place] [facility] Encounters Start Date/Time End Date/Time Encounter Type Admission Type Attending [facility] Care Department Encounter ID Source 2024-01-28 09:20:00 Outpatient ColvinKarlee garrett [facility] ST[facility] [id number] [facility] 2023-11-20 15:38:00 Outpatient ColvinKarlee shaw STLMLC STLMLC [id number] [facility] 2023-10-11 15:49:00 Outpatient ColvinKarlee shaw STLMLC STLMLC [id number] [facility] 2023-10-10 11:02:00 Outpatient ColvinKarlee shaw STLMLC STLMLC [id number] [facility] 2023-05-25 09:01:00 Outpatient ColvinKarlee shaw STLMLC STLMLC [id number] [facility] 2023-04-04 09:55:00 Outpatient ColvinKarlee shaw STLMLC STLMLC [id number] [facility] 2023-02-06 13:31:00 Outpatient ColvinKarlee shaw [facility]LMLC STLMLC [id number] [facility] 2023-02-05 16:18:00 Outpatient ColvinKarlee shaw STLMLC STLMLC [id number] [facility] 2023-01-30 15:37:00 Outpatient Colvin, Karlee STLMLC STLMLC [id number] [facility] 2022-11-24 09:46:00 Outpatient ColvinKarlee shaw STLMLC STLMLC [id number] [facility] 2022-11-08 08:23:00 Outpatient ColvinKarlee shaw STLMLC STLMLC [id number] [facility] 2022-11-07 15:16:00 Outpatient Karlee Colvin STLMLC STLMLC [id number] [facility] 2022-10-27 12:43:00 Outpatient Karlee Colvin STLMLC STLMLC [id number] [facility] 2022-08-31 11:26:00 Outpatient Traore, Na STLMLC STLMLC [id number] [facility] 2022-08-02 09:07:01 Outpatient Traore, Na STLMLC STLMLC [id number] [facility] 2022-07-06 09:32:00 Outpatient Rtaore, Na STLMLC STLMLC [id number] [facility] 2022-07-05 10:27:00 Outpatient Traore, Na STLMLC STLMLC [id number] [facility] 2022-06-27 09:27:01 Outpatient Traore, Na STLMLC STLMLC [id number] [facility] 2022-05-26 10:09:00 Outpatient Traore, Na STLMLC STLMLC [id number] [facility] 2022-02-22 08:24:02 Outpatient Traore, Na STLMLC STLMLC [id number] [facility] 2022-01-16 10:10:00 Outpatient Traore, Na STLMLC STLMLC [id number] [facility] 2021-11-16 14:32:02 Outpatient Traore, Na STLMLC STLMLC [id number] [facility] 2021-11-16 14:31:06 Outpatient Traore, Na STLMLC STLMLC [id number] [facility] 2021-11-16 13:09:20 Outpatient Sudha Traore STLMLC STLMLC [id number] [facility] 2021-11-16 12:39:12 Outpatient Sudha Traore STLMLC STLMLC [id number] [facility] 2021-11-16 12:34:08 Outpatient Sudha Traore STLMLC STLMLC [id number] [facility] 2021-11-16 12:25:21 Outpatient Sudha Traore STLMLC STLMLC [id number] [facility] 2021-11-16 12:25:09 Outpatient Sudha Traore STLMLC STLMLC [id number] [facility] 2021-11-16 12:14:55 Outpatient Sudha Traore STLMLC STLMLC [id number] [facility] 2021-11-16 12:14:45 Outpatient Azar Watson STLMLC STLMLC [id number] [facility] 2021-11-16 12:11:09 Outpatient Azar Watson STLMLC STLMLC [id number] [facility] 2021-11-16 12:08:17 Outpatient Azar Watson STLMLC STLMLC [id number] [facility] 2021-11-16 12:06:49 Outpatient Azar Watson STLMLC STLMLC [id number] [facility] 2021-11-16 12:01:10 Outpatient STLMLC STLMLC [id number] [facility] 2021-11-16 11:27:56 Outpatient Marissa Rodriguez STLMLC STLMLC [id number] [facility] 2021-11-16 11:13:44 Outpatient Marissa Rodriguez STLMLC STLMLC [id number] [facility] 2021-11-16 11:09:05 Outpatient Marissa Rodriguez STLMLC STLMLC [id number] [facility] 2021-11-16 11:06:45 Outpatient Marissa Rodriguez STLMLC STLMLC [id number] [facility] 2024-04-16 00:00:00 2024-04-16 00:00:00 (TEL) STLMLC STLMLC [id number] [facility] 2024-04-04 00:00:00 2024-04-04 00:00:00 (TEL) STLMLC STLMLC [id number] [facility] 2024-04-02 14:00:00 2024-04-02 14:30:00 [facility] [place] 2.16.840. [id number] 2.16.840.1. [id number] [address] [place] [address] 2024-04-01 00:00:00 2024-04-01 00:00:00 OFFICE VISIT ESTAB PT LEVEL 4 STLMLC STLMLC [id number] [facility] 2024-03-31 00:00:00 2024-03-31 00:00:00 (TEL) STLMLC STLMLC [id number] [facility] 2024-03-25 00:00:00 2024-03-25 00:00:00 (TEL) STLMLC STLMLC [id number] [facility] 2024-02-20 00:00:00 2024-02-20 00:00:00 (TEL) STLMLC STLMLC [id number] [facility] 2023-12-26 00:00:00 2023-12-26 00:00:00 (TEL) STLMLC STLMLC [id number] [facility] 2023-12-18 00:00:00 2023-12-18 00:00:00 (TEL) STLMLC STLMLC [id number] [facility] 2023-11-20 00:00:00 2023-11-20 00:00:00 (TEL) STLMLC STLMLC [id number] [facility] 2023-10-16 00:00:00 2023-10-16 00:00:00 (TEL) STLMLC STLMLC [id number] [facility] 2023-10-12 00:00:00 2023-10-12 00:00:00 OFFICE VISIT ESTAB PT LEVEL 4 STLMLC STLMLC [id number] [facility] 2023-09-24 00:00:00 2023-09-24 00:00:00 (TEL) STLMLC STLMLC [id number] [facility] 2023-09-07 00:00:00 2023-09-07 00:00:00 (TEL) STLMLC STLMLC [id number] [facility] 2023-08-30 00:00:00 2023-08-30 00:00:00 (TEL) STLMLC STLMLC [id number] [facility] 2023-08-23 00:00:00 2023-08-23 00:00:00 (TEL) STLMLC STLMLC [id number] [facility] 2023-07-25 00:00:00 2023-07-25 00:00:00 (TEL) STLMLC STLMLC [id number] [facility] 2023-07-11 00:00:00 2023-07-11 00:00:00 (TEL) STLMLC STLMLC [id number] [facility] 2023-07-11 00:00:00 2023-07-11 00:00:00 OFFICE VISIT ESTAB PT LEVEL 4 STLMLC STLMLC [id number] [facility] 2023-07-02 00:00:00 2023-07-02 00:00:00 (TEL) STLMLC STLMLC [id number] [facility] 2023-06-11 18:00:00 2023-06-11 19:00:00 D2Me Madonna Talavera 2.16.840. [id number] 2.16.840.1. [id number] CF5 [facility] 2023-06-11 00:00:00 2023-06-11 00:00:00 (TEL) STLC STLC [id number] [facility] 2023-06-04 00:00:00 2023-06-04 00:00:00 (TEL) STLMLC STLC [id number] [facility] 2023-05-31 00:00:00 2023-05-31 00:00:00 (TEL) STLMLC STLC [id number] [facility] 2023-05-30 00:00:00 2023-05-30 00:00:00 Outpatient GC_GCBZW_Ka diyala_S PRIV PRIV [id number] [facility] 2023-05-30 00:00:00 2023-05-30 00:00:00 Outpatient GC_GCBZW_Ka diyala_S PRIV PRIV [id number] [facility] 2023-05-28 00:00:00 2023-05-28 00:00:00 Outpatient GC_GCBZW_Ka diyala_S PRIV PRIV [id number] [facility] 2023-05-28 00:00:00 2023-05-28 00:00:00 OFFICE VISIT ESTAB PT LEVEL 4 STLC STLC [id number] [facility] 2023-05-22 00:00:00 2023-05-22 00:00:00 (TEL) STLMLC STLC [id number] [facility] 2023-05-15 00:00:00 2023-05-15 00:00:00 (TEL) STLMLC STLC [id number] [facility] 2023-05-01 00:00:00 2023-05-01 00:00:00 (TEL) STLMLC STLMLC [id number] [facility] 2023-04-06 00:00:00 2023-04-06 00:00:00 OFFICE VISIT ESTAB PT LEVEL 4 STLMLC STLMLC [id number] [facility] 2023-04-06 00:00:00 2023-04-06 00:00:00 (TEL) STLMLC STLMLC [id number] [facility] 2023-03-27 00:00:00 2023-03-27 00:00:00 Orders Only Doctor Unassigned, [place] [facility] 1.2.840.114 350.1.13.10 [id number] [facility] 2023-02-21 00:00:00 2023-02-21 00:00:00 (TEL) STLMLC STLMLC [id number] [facility] 2023-02-07 00:00:00 2023-02-07 00:00:00 OFFICE VISIT ESTAB PT LEVEL 4 STLMLC STLMLC [id number] [facility] 2023-01-30 00:00:00 2023-01-30 00:00:00 (TEL) STLMLC STLMLC [id number] [facility] 2023-01-29 00:00:00 2023-01-29 00:00:00 OFFICE VISIT ESTAB PT LEVEL 3 STLMLC STLMLC [id number] [facility] 2023-01-23 00:00:00 2023-01-23 00:00:00 (TEL) STLMLC STLMLC [id number] [facility] 2023-01-19 00:00:00 2023-01-19 00:00:00 (TEL) STLMLC STLMLC [id number] [facility] 2022-12-08 00:00:00 2022-12-08 00:00:00 (TEL) STLMLC STLMLC [id number] [facility] 2022-12-06 00:00:00 2022-12-06 00:00:00 (TEL) STLMLC STLMLC [id number] [facility] 2022-11-28 00:00:00 2022-11-28 00:00:00 (TEL) STLMLC STLMLC [id number] [facility] 2022-11-24 00:00:00 2022-11-24 00:00:00 OFFICE VISIT ESTAB PT LEVEL 4 STLMLC STLMLC [id number] [facility] 2022-11-13 00:00:00 2022-11-13 00:00:00 (TEL) STLMLC STLMLC [id number] [facility] 2022-11-08 00:00:00 2022-11-08 00:00:00 OFFICE VISIT EST PT LEVEL 3 STLMLC STLMLC [id number] [facility] 2022-11-06 00:00:00 2022-11-06 00:00:00 (TEL) STLMLC STLMLC [id number] [facility] 2022-09-04 00:00:00 2022-09-04 00:00:00 OFFICE VISIT ESTAB PT LEVEL 4 STLMLC STLMLC [id number] [facility] 2022-08-23 00:00:00 2022-08-23 00:00:00 OFFICE VISIT EST PT LEVEL 3 STLMLC STLMLC [id number] [facility] 2022-08-02 00:00:00 2022-08-02 00:00:00 OFFICE VISIT EST PT LEVEL 3 STLMLC STLMLC [id number] [facility] 2022-07-05 00:00:00 2022-07-05 00:00:00 OFFICE VISIT NEW PT LEVEL 3 STLMLC STLMLC [id number] [facility] 2022-06-22 00:00:00 2022-06-22 00:00:00 (TEL) STLMLC STLMLC [id number] [facility] 2022-06-20 00:00:00 2022-06-20 00:00:00 (TEL) STLMLC STLMLC [id number] [facility] 2022-06-15 09:30:00 2022-06-15 09:30:00 Outpatient Ranjit LORENASHILPA TURNER [facility] [id number] [facility] 2022-05-31 00:00:00 2022-05-31 00:00:00 (TEL) STLMLC STLMLC [id number] [facility] 2022-05-30 00:00:00 2022-05-30 00:00:00 OFFICE VISIT ESTAB PT LEVEL 4 STLMLC STLMLC [id number] [facility] 2022-05-22 00:00:00 2022-05-22 00:00:00 (TEL) STLMLC STLMLC [id number] [facility] 2022-05-06 10:01:00 2022-05-06 10:01:00 Outpatient Adams_R DMG [facility] [id number] [facility] 2022-05-06 00:00:00 2022-05-06 00:00:00 Outpatient Adams_R DMG [facility] [id number] [facility] 2022-03-29 00:00:00 2022-03-29 00:00:00 (TEL) STLMLC STLMLC [id number] [facility] 2022-03-21 00:00:00 2022-03-21 00:00:00 (TEL) STLMLC STLMLC [id number] [facility] 2022-03-16 00:00:00 2022-03-16 00:00:00 (TEL) STLMLC STLMLC [id number] [facility] 2022-03-09 00:00:00 2022-03-09 00:00:00 (TEL) STLMLC STLMLC [id number] [facility] 2022-03-02 00:00:00 2022-03-02 00:00:00 (TEL) STLMLC STLMLC [id number] [facility] 2022-02-24 00:00:00 2022-02-24 00:00:00 OFFICE VISIT ESTAB PT LEVEL 4 STLMLC STLMLC [id number] [facility] 2022-02-13 00:00:00 2022-02-13 00:00:00 (TEL) STLMLC STLMLC [id number] [facility] 2022-01-18 00:00:00 2022-01-18 00:00:00 (TEL) STLMLC STLMLC [id number] [facility] 2022-01-16 00:00:00 2022-01-16 00:00:00 OFFICE VISIT EST PT LEVEL 3 STLMLC STLMLC [id number] [facility] 2021-12-16 00:00:00 2021-12-16 00:00:00 (TEL) STLMLC STLMLC [id number] [facility] 2021-12-13 00:00:00 2021-12-13 00:00:00 OL DIG E/M SVC 11-20 MIN STLMLC STLMLC [id number] [facility] 2021-12-12 00:00:00 2021-12-12 00:00:00 (TEL) STLMLC STLMLC [id number] [facility] 2021-11-23 00:00:00 2021-11-23 00:00:00 (TEL) STLMLC STLMLC [id number] [facility] 2021-11-16 00:00:00 2021-11-16 00:00:00 OL DIG E/M SVC 11-20 MIN STLMLC STLMLC [id number] [facility] 2021-10-31 09:57:00 2021-10-31 09:57:00 Outpatient Adams_R DMG [facility] [id number] [facility] 2021-10-18 12:00:00 2021-10-18 12:00:00 Outpatient BESS BRIGIDO [id number] [facility] 2021-09-09 00:00:00 2021-09-09 00:00:00 OL DIG E/M SVC 21+ MIN STLMLC STLMLC [id number] [facility] 2021-08-29 11:02:00 2021-08-29 11:02:00 Outpatient DMG DMG [id number] [facility] 2021-08-18 00:00:00 2021-08-18 00:00:00 OFFICE VISIT EST PT LEVEL 3 STLMLC STLMLC [id number] [facility] 2021-08-18 00:00:00 2021-08-18 00:00:00 (TEL) STLMLC STLMLC [id number] [facility] 2021-08-18 00:00:00 2021-08-18 00:00:00 (TEL) STLMLC STLMLC [id number] [facility] 2021-08-15 00:00:00 2021-08-15 00:00:00 (TEL) STLMLC STLMLC [id number] [facility] 2021-07-08 00:00:00 2021-07-08 00:00:00 (TEL) STLMLC STLMLC [id number] [facility] 2021-06-21 00:00:00 2021-06-21 00:00:00 Outpatient STLMLC STLMLC [id number] [facility] 2021-06-15 09:22:29 2021-06-15 09:49:00 Office Visit Shilpa Bourgeois [facility] 1.2.840.114 350.1.13.10 4.2.7.2.[id number] [facility] 2021-06-15 09:00:00 2021-06-15 09:00:00 Outpatient R SHILPA BOURGEOIS [facility] [id number] [facility] 2021-06-10 00:00:00 2021-06-10 00:00:00 Outpatient STLMLC STLMLC [id number] [facility] 2021-06-10 00:00:00 2021-06-10 00:00:00 Outpatient STLMLC STLMLC [id number] [facility] 2021-05-11 08:42:39 2021-05-11 23:59:00 Hospital Rich Bloomchay Shilpa [facility] 1.2.840.114 350.1.13.10 4.2.7.2.[id number] [facility] 2021-05-11 00:00:00 2021-05-11 00:00:00 Outpatient SHILPA CARLSON [facility] [id number] [facility] 2021-05-11 00:00:00 2021-05-11 00:00:00 Orders Only Doctor Unassigned, [place] [facility] 1.2.840.114 350.1.13.10 4.2.7.2.[id number] [facility] 2021-03-23 00:00:00 2021-03-23 00:00:00 Outpatient STLMLC STLMLC [id number] [facility] 2021-01-26 00:00:00 2021-01-26 00:00:00 Outpatient STLMLC STLMLC [id number] [facility] 2021-01-24 00:00:00 2021-01-24 00:00:00 Orders Only Doctor Unassigned, [place] [facility] 1.2.840.114 350.1.13.10 4.2.7.2.[id number] [facility] 2021-01-19 00:00:00 2021-01-19 00:00:00 Orders Only Doctor Unassigned, [place] [facility] 1.2.840.114 350.1.13.10 4.2.7.2.[id number] [facility] 2021-01-13 08:35:32 2021-01-13 09:20:50 Office Visit Shilpa Bourgeois [facility] 1.2.840.114 350.1.13.10 4.2.7.2.[id number] [facility] 2021-01-13 09:00:00 2021-01-13 09:00:00 Outpatient R SHILPA BOURGEOIS [facility] [id number] [facility] 2021-01-13 00:00:00 2021-01-13 00:00:00 Orders Only Doctor Unassigned, [place] [facility] 1.2.840.114 350.1.13.10 4.2.7.2.[id number] [facility] 2021-01-13 00:00:00 2021-01-13 00:00:00 Letter (Out) Doctor Unassigned, [place] [facility] 1.2.840.114 350.1.13.10 4.2.7.2.[id number] [facility] 2021-01-13 00:00:00 2021-01-13 00:00:00 Letter (Out) Doctor Unassigned, [place] [facility] 1.2.840.114 350.1.13.10 4.2.7.2.[id number] [facility] 2021-01-04 00:00:00 2021-01-04 00:00:00 Case Management Shilpa Bourgeois [facility] 1.2.840.114 350.1.13.10 4.2.7.2.[id number] [facility] 2021-01-03 00:00:00 2021-01-03 00:00:00 Outpatient STLMLC STLMLC [id number] [facility] 2020-12-21 00:00:00 2020-12-21 00:00:00 Outpatient STLMLC STLMLC [id number] [facility] 2020-11-16 00:00:00 2020-11-16 00:00:00 Outpatient STLMLC STLMLC [id number] [facility] 2020-11-10 00:00:00 2020-11-10 00:00:00 Outpatient STLMLC STLMLC [id number] [facility] 2020-10-12 00:00:00 2020-10-12 00:00:00 Outpatient STLMLC STLMLC [id number] [facility] 2020-10-11 00:00:00 2020-10-11 00:00:00 Outpatient STLMLC STLMLC [id number] [facility] 2020-09-30 00:00:00 2020-09-30 00:00:00 Outpatient STLMLC STLMLC [id number] [facility] 2020-09-29 00:00:00 2020-09-29 00:00:00 Outpatient STLMLC STLMLC [id number] [facility] 2020-09-14 00:00:00 2020-09-14 00:00:00 Outpatient STLMLC STLMLC [id number] [facility] 2020-09-14 00:00:00 2020-09-14 00:00:00 Outpatient STLMLC STLMLC [id number] [facility] 2020-09-14 00:00:00 2020-09-14 00:00:00 Outpatient STLMLC STLMLC [id number] [facility] 2020-09-13 00:00:00 2020-09-13 00:00:00 Outpatient STLMLC STLMLC [id number] [facility] 2020-06-24 09:50:00 2020-06-24 09:50:00 Outpatient [facility] [id number] [facility] 2020-06-09 16:32:00 2020-06-09 16:32:[address] [facility] [id number] [facility] 2020-05-28 11:43:00 2020-05-28 11:43:[address] [facility] [id number] [facility] 2020-04-13 09:20:00 2020-04-13 09:20:[address] [facility] [id number] [facility] 2020-03-10 16:01:00 2020-03-10 16:01:[address] [facility] [id number] [facility] 2020-01-25 13:49:00 2020-01-25 13:49:[address] [facility] [id number] [facility] 2020-01-02 09:45:00 2020-01-02 09:45:[address] [facility] [id number] [facility] 2019-12-02 09:15:00 2019-12-02 09:15:[address] [facility] [id number] [facility] 2019-11-17 14:50:00 2019-11-17 14:50:[address] [facility] [id number] [facility] 2019-09-26 10:00:00 2019-09-26 10:00:[address] [facility] [id number] [facility] 2019-07-22 11:05:00 2019-07-22 11:05:[address] [facility] [id number] [facility] 2019-06-30 10:20:00 2019-06-30 10:20:[address] [facility] [id number] [facility] 2019-04-17 20:26:00 2019-04-17 20:26:[address] [facility] [id number] [facility] 2019-04-16 15:58:00 2019-04-16 15:58:[address] [facility] [address] [facility] [place] [facility] [id number] [facility] 2019-03-03 13:58:00 2019-03-03 13:58:[address] [facility] [address] [facility] [place] [facility] [id number] [facility] 2019-01-17 15:47:00 2019-01-17 15:47:[address] [facility] [facility] [place] [facility] [id number] [facility] 2019-01-17 11:15:00 2019-01-17 11:15:[address] [facility] [facility] [place] [facility] [id number] [facility] 2019-01-10 01:41:00 2019-01-10 01:41:[address] [facility] [facility] [place] [facility] [id number] [facility] 2019-01-08 10:30:00 2019-01-08 10:30:00 [facility] [place] [facility] [id number] [facility] 2018-12-26 14:36:00 2018-12-26 14:36:[address] [facility] [facility] [place] [facility] [id number] [facility] 2018-12-25 11:15:00 2018-12-25 11:15:[address] [facility] [facility] [place] [facility] [id number] [facility] 2018-11-12 09:15:00 2018-11-12 09:15:00 [facility] [id number] [facility] 2018-10-09 08:00:00 2018-10-09 08:00:00 [facility] [id number] [facility] 2018-07-30 15:53:00 2018-07-30 15:53:[address] [facility] [facility] [id number] [facility] 2018-07-29 09:10:00 2018-07-29 09:10:[address] [facility] [facility] [place] [address] [address] [facility] [id number] [facility] 2018-05-28 11:00:00 2018-05-28 11:00:[address] [facility] Medicine [facility] [id number] [facility] 2018-04-10 08:24:00 2018-04-10 08:24:[address] [facility] [id number] [facility] 2018-04-02 09:00:00 2018-04-02 09:00:[address] [facility] [id number] [facility] 2018-04-01 14:33:00 2018-04-01 14:33:[address] [facility] [id number] [facility] 2018-03-21 08:55:00 2018-03-21 08:55:[address] [facility] Medicine [id number] [facility] 2018-03-19 09:30:00 2018-03-19 09:30:[address] [facility] [id number] [facility] Results Test Description Test Time Test Comments Results Result Co mments Source CBC W/AUTO [id number] 00:00:00* Test Item Value Reference Range Interpretation Comme nts NUCLEATED RBCS (test code = 86364-9) 0.0 /100 WBC'S See_Comment [Automated messa ge] The system which generated this result transmitted reference range: 0.0 /100 WBC'S. The reference range was not used to interpret this result as normal/abnormal. ABSOLUTE EOSINOPHILS (test code = 29362-2) 0.27 K/UL See_Comment [Automated messa ge] The system which generated this result transmitted reference range: 0.00-0.50 K/UL. The reference range was not used to interpret this result as normal/abnormal. ABSOLUTE LYMPHOCYTES (test code = 66974-4) 1.99 K/UL See_Comment [Automated messa ge] The system which generated this result transmitted reference range: 1.00-4.00 K/UL. The reference range was not used to interpret this result as normal/abnormal. ABSOLUTE MONOCYTES (test code = 17582-0) 0.75 K/UL See_Comment [Automated messa ge] The system which generated this result transmitted reference range: 0.20-1.00 K/UL. The reference range was not used to interpret this result as normal/abnormal. ABSOLUTE NEUTROPHILS (test code = 64122-4) 6.41 K/UL See_Comment [Automated messa ge] The system which generated this result transmitted reference range: 1.50-7.50 K/UL. The reference range was not used to interpret this result as normal/abnormal. BASOPHILS (test code = 27038-4) 0.5 % EOSINOPHILS (test code = 12222-0) 2.8 % HEMATOCRIT (test code = 08506-2) 33.8 % See_Comment L [Automated messa ge] The system which generated this result transmitted reference range: 34.0-45.0 %. The reference range was not used to interpret this result as normal/abnormal. HEMOGLOBIN (test code = 718-7) 10.8 G/DL See_Comment L [Automated messa ge] The system which generated this result transmitted reference range: 11.5-15.5 G/DL. The reference range was not used to interpret this result as normal/abnormal. LYMPHOCYTES (test code = 99204-8) 21.0 % MCH (test code = 51894-0) 29.7 PG See_Comment [Automated messa ge] The system which generated this result transmitted reference range: 25.0-33.0 PG. The reference range was not used to interpret this result as normal/abnormal. MCHC (test code = 74060-1) 32.0 G/DL See_Comment [Automated messa ge] The system which generated this result transmitted reference range: 31.0-36.0 G/DL. The reference range was not used to interpret this result as normal/abnormal. MCV (test code = 84961-3) 92.9 fL See_Comment [Automated messa ge] The system which generated this result transmitted reference range: 80.0-99.0 fL. The reference range was not used to interpret this result as normal/abnormal. MONOCYTES (test code = 20497-1) 7.9 % NEUTROPHILS (test code = 72703-8) 67.6 % PLATELET COUNT (test code = 25302-1) 231 K/UL See_Comment [Automated messa ge] The system which generated this result transmitted reference range: 130-400 K/UL. The reference range was not used to interpret this result as normal/abnormal. RBC (test code = 59330-1) 3.64 M/UL See_Comment L [Automated [employer]] The system which generated this result transmitted reference range: 3.80-5.40 M/UL. The reference range was not used to interpret this result as normal/abnormal. RDW (test code = 65421-8) 13.7 % See_Comment [Automated [employer] ge] The system which generated this result transmitted reference range: 11.5-15.0 %. The reference range was not used to interpret this result as normal/abnormal. WBC (test code = 13588-7) 9.5 K/UL See_Comment [Automated messa ge] The system which generated this result transmitted reference range: 3.5-11.0 K/UL. The reference range was not used to interpret this result as normal/abnormal. URINALYSIS W/REFLEX [id number] 00:00:00* Test Item Value Reference Range Interpretation Comme nts APPEARANCE (test code = 5767-9) CLEAR CLEAR BACTERIA (test code = 43891-4) 1+ NONE SEEN A BILIRUBIN (test code = 5770-3) NEGATIVE NEGATIVE CASTS, HYALINE (test code = 62619-1) NONE SEEN NONE-TRACE COLOR (test code = 5778-6) YELLOW YELLOW-STRAW EPITHELIAL CELLS (test code = 83625-0) 0-5 /HPF See_Comment [Automated messa ge] The system which generated this result transmitted reference range: 0-10 /HPF. The reference range was not used to interpret this result as normal/abnormal. GLUCOSE (test code = 5792-7) NEGATIVE NEGATIVE KETONES (test code = 5797-6) NEGATIVE NEGATIVE LEUKOCYTE ESTERASE (test code = 5799-2) 2+ NEGATIVE A NITRITE (test code = 5802-4) NEGATIVE NEGATIVE OCCULT BLOOD (test code = 41519-6) NEGATIVE NEGATIVE pH (test code = 5803-2) 6.5 5.0-9.0 PROTEIN (test code = 00250-8) 1+ NEGATIVE A RED BLOOD CELLS (test code = 50836-3) 0-2 /HPF See_Comment [Automated [employer] ge] The system which generated this result transmitted reference range: 0-2 /HPF. The reference range was not used to interpret this result as normal/abnormal. SPECIFIC GRAVITY (test code = 5811-5) 1.009 1.005-1.035 UROBILINOGEN (test code = 66598-4) 0.2 MG/DL See_Comment [Automated [employer] ge] The system which generated this result transmitted reference range: <=2.0 MG/DL. The reference range was not used to interpret this result as normal/abnormal. WHITE BLOOD CELLS (test code = 84699-3) 0-5 /HPF See_Comment [Automated [employer] ge] The system which generated this result transmitted reference range: 0-5 /HPF. The reference range was not used to interpret this result as normal/abnormal. [id number] 00:00:00* Test Item Value Reference Range Interpretation Comme nts FERRITIN (test code = 42576-7) 874 NG/ML See_Comment H [Automated [employer] ge] The system which generated this result transmitted reference range: 13-200 NG/ML. The reference range was not used to interpret this result as normal/abnormal. URIC [id number] 00:00:00* Test Item Value Reference Range Interpretation Comme nts URIC ACID (test code = 2501-5) 6.9 MG/DL See_Comment H [Automated [employer] ge] The system which generated this result transmitted reference range: 2.7-6.1 MG/DL. The reference range was not used to interpret this result as normal/abnormal. TSH RFLX FT4 AND [id number] 00:00:00* Test Item Value Reference Range Interpretation Comme nts TSH RFLX FT4 AND FT3 (test code = 72505-9) 3.370 UIU/ML See_Comment [Automated messa ge] The system which generated this result transmitted reference range: 0.400-4.100 UIU/ML. The reference range was not used to interpret this result as normal/abnormal. LIPID PANEL WITH REFLEX DIRECT [id number] 00:00:00* Test Item Value Reference Range Interpretation Comme nts CALC LDL CHOL (test code = 46144-5) 94 MG/DL See_Comment [Automated messa ge] The system which generated this result transmitted reference range: <100 MG/DL. The reference range was not used to interpret this result as normal/abnormal. CHOLESTEROL (test code = 2093-3) 150 MG/DL See_Comment [Automated messa ge] The system which generated this result transmitted reference range: <200 MG/DL. The reference range was not used to interpret this result as normal/abnormal. HDL CHOLESTEROL (test code = 2085-9) 35 MG/DL See_Comment L [Automated messa ge] The system which generated this result transmitted reference range: >39 MG/DL. The reference range was not used to interpret this result as normal/abnormal. RISK RATIO LDL/HDL (test code = 78152-3) 2.69 RATIO See_Comment [Automated message] The system which generated this result transmitted reference range: <3.22 RATIO. The reference range was not used to interpret this result as normal/abnormal. TRIGLYCERIDES (test code = 2571-8) 116 MG/DL See_Comment [Automated messa ge] The system which generated this result transmitted reference range: <150 MG/DL. The reference range was not used to interpret this result as normal/abnormal. IRON BINDING CAPACITY AND IRON AND % [id number] 00:00:00* Test Item Value Reference Range Interpretation Comme nts CALC % IRON SAT (test code = 2502-3) 24 % See_Comment [Automated messa ge] The system which generated this result transmitted reference range: 20-50 %. The reference range was not used to interpret this result as normal/abnormal. CALC TOTAL IBC (test code = 10801-0) 224 UG/DL See_Comment L [Automated messa ge] The system which generated this result transmitted reference range: 250-450 UG/DL. The reference range was not used to interpret this result as normal/abnormal. IRON, SERUM (test code = 2498-4) 54 UG/DL See_Comment [Automated messa ge] The system which generated this result transmitted reference range: 37-145 UG/DL. The reference range was not used to interpret this result as normal/abnormal. UNSATURATED IBC (test code = 2501-5) 170 UG/DL See_Comment [Automated messa ge] The system which generated this result transmitted reference range: 112-347 UG/DL. The reference range was not used to interpret this result as normal/abnormal. COMPREHENSIVE METABOLIC [id number] 00:00:00* Test Item Value Reference Range Interpretation Comme nts ALBUMIN (test code = 1751-7) 4.5 G/DL See_Comment [Automated messa ge] The system which generated this result transmitted reference range: 3.5-5.2 G/DL. The reference range was not used to interpret this result as normal/abnormal. ALKALINE PHOSPHATASE (test code = 6768-6) 76 U/L See_Comment [Automated message] The system which generated this result transmitted reference range: 40-140 U/L. The reference range was not used to interpret this result as normal/abnormal. BILIRUBIN, TOTAL (test code = 1975-2) 0.6 MG/DL See_Comment [Automated message] The system which generated this result transmitted reference range: <=1.2 MG/DL. The reference range was not used to interpret this result as normal/abnormal. BUN (test code = 3094-0) 16 MG/DL See_Comment [Automated messa ge] The system which generated this result transmitted reference range: 8-23 MG/DL. The reference range was not used to interpret this result as normal/abnormal. CALCIUM (test code = 38613-5) 9.7 MG/DL See_Comment [Automated messa ge] The system which generated this result transmitted reference range: 8.5-10.5 MG/DL. The reference range was not used to interpret this result as normal/abnormal. CALC A/G RATIO (test code = 1759-0) 1.6 RATIO See_Comment [Automated messa ge] The system which generated this result transmitted reference range: 1.0-2.6 RATIO. The reference range was not used to interpret this result as normal/abnormal. CALC BUN/CREAT (test code = 3097-3) 11 RATIO See_Comment [Automated messa ge] The system which generated this result transmitted reference range: 6-28 RATIO. The reference range was not used to interpret this result as normal/abnormal. CALC GLOBULIN (test code = 35378-9) 2.9 G/DL See_Comment [Automated messa ge] The system which generated this result transmitted reference range: 1.9-3.7 G/DL. The reference range was not used to interpret this result as normal/abnormal. CARBON DIOXIDE (test code = 1963-8) 22 MEQ/L See_Comment [Automated messa ge] The system which generated this result transmitted reference range: 19-31 MEQ/L. The reference range was not used to interpret this result as normal/abnormal. CHLORIDE (test code = 2075-0) 101 MEQ/L See_Comment [Automated messa ge] The system which generated this result transmitted reference range: 95-107 MEQ/L. The reference range was not used to interpret this result as normal/abnormal. CREATININE (test code = 2160-0) 1.52 MG/DL See_Comment H [Automated messa ge] The system which generated this result transmitted reference range: 0.60-1.30 MG/DL. The reference range was not used to interpret this result as normal/abnormal. eGFR (2020 CKD-EPI) (test code = 30833-1) 38 ML/MIN/1.73 See_Comment L [Automated messa ge] The system which generated this result transmitted reference range: >60 ML/MIN/1.73. The reference range was not used to interpret this result as normal/abnormal. GLUCOSE (test code = 1558-6) 94 MG/DL See_Comment [Automated messa ge] The system which generated this result transmitted reference range: 70-99 MG/DL. The reference range was not used to interpret this result as normal/abnormal. POTASSIUM (test code = 2823-3) 4.3 MEQ/L See_Comment [Automated messa ge] The system which generated this result transmitted reference range: 3.5-5.4 MEQ/L. The reference range was not used to interpret this result as normal/abnormal. PROTEIN, TOTAL (test code = 2885-2) 7.4 G/DL See_Comment [Automated messa ge] The system which generated this result transmitted reference range: 6.1-8.3 G/DL. The reference range was not used to interpret this result as normal/abnormal. AST (test code = 1920-8) 15 U/L See_Comment [Automated messa ge] The system which generated this result transmitted reference range: 9-40 U/L. The reference range was not used to interpret this result as normal/abnormal. ALT (test code = 1742-6) 22 U/L See_Comment [Automated messa ge] The system which generated this result transmitted reference range: 5-40 U/L. The reference range was not used to interpret this result as normal/abnormal. SODIUM (test code = 2951-2) 137 MEQ/L See_Comment [Automated messa ge] The system which generated this result transmitted reference range: 133-146 MEQ/L. The reference range was not used to interpret this result as normal/abnormal. CBC W/AUTO [id number] 00:00:00* Test Item Value Reference Range Interpretation Comme nts NUCLEATED RBCS (test code = 29992-9) 0.0 /100 WBC'S See_Comment [Automated messa ge] The system which generated this result transmitted reference range: 0.0 /100 WBC'S. The reference range was not used to interpret this result as normal/abnormal. ABSOLUTE EOSINOPHILS (test code = 30502-6) 0.32 K/UL See_Comment [Automated messa ge] The system which generated this result transmitted reference range: 0.00-0.50 K/UL. The reference range was not used to interpret this result as normal/abnormal. ABSOLUTE LYMPHOCYTES (test code = 63253-9) 2.60 K/UL See_Comment [Automated messa ge] The system which generated this result transmitted reference range: 1.00-4.00 K/UL. The reference range was not used to interpret this result as normal/abnormal. ABSOLUTE MONOCYTES (test code = 06443-7) 0.60 K/UL See_Comment [Automated messa ge] The system which generated this result transmitted reference range: 0.20-1.00 K/UL. The reference range was not used to interpret this result as normal/abnormal. ABSOLUTE NEUTROPHILS (test code = 76041-9) 6.76 K/UL See_Comment [Automated messa ge] The system which generated this result transmitted reference range: 1.50-7.50 K/UL. The reference range was not used to interpret this result as normal/abnormal. BASOPHILS (test code = 14771-9) 0.9 % EOSINOPHILS (test code = 37919-7) 3.1 % HEMATOCRIT (test code = 99673-2) 32.8 % See_Comment L [Automated messa ge] The system which generated this result transmitted reference range: 34.0-45.0 %. The reference range was not used to interpret this result as normal/abnormal. HEMOGLOBIN (test code = 718-7) 10.7 G/DL See_Comment L [Automated messa ge] The system which generated this result transmitted reference range: 11.5-15.5 G/DL. The reference range was not used to interpret this result as normal/abnormal. LYMPHOCYTES (test code = 16785-5) 25.0 % MCH (test code = 32553-1) 29.6 PG See_Comment [Automated messa ge] The system which generated this result transmitted reference range: 25.0-33.0 PG. The reference range was not used to interpret this result as normal/abnormal. MCHC (test code = 97600-0) 32.6 G/DL See_Comment [Automated messa ge] The system which generated this result transmitted reference range: 31.0-36.0 G/DL. The reference range was not used to interpret this result as normal/abnormal. MCV (test code = 24112-4) 90.9 fL See_Comment [Automated messa ge] The system which generated this result transmitted reference range: 80.0-99.0 fL. The reference range was not used to interpret this result as normal/abnormal. MONOCYTES (test code = 44334-4) 5.8 % NEUTROPHILS (test code = 98110-7) 64.9 % PLATELET COUNT (test code = 90452-8) 208 K/UL See_Comment [Automated messa ge] The system which generated this result transmitted reference range: 130-400 K/UL. The reference range was not used to interpret this result as normal/abnormal. RBC (test code = 41740-0) 3.61 M/UL See_Comment L [Automated messa ge] The system which generated this result transmitted reference range: 3.80-5.40 M/UL. The reference range was not used to interpret this result as normal/abnormal. RDW (test code = 04210-2) 13.0 % See_Comment [Automated messa ge] The system which generated this result transmitted reference range: 11.5-15.0 %. The reference range was not used to interpret this result as normal/abnormal. WBC (test code = 43607-7) 10.4 K/UL See_Comment [Automated messa ge] The system which generated this result transmitted reference range: 3.5-11.0 K/UL. The reference range was not used to interpret this result as normal/abnormal. [id number] 00:00:00* Test Item Value Reference Range Interpretation Comme [facility] FERRITIN (test code = 82058-7) 849 NG/ML See_Comment H [Automated messa ge] The system which generated this result transmitted reference range: 13-200 NG/ML. The reference range was not used to interpret this result as normal/abnormal. URIC [id number] 00:00:00* Test Item Value Reference Range Interpretation Comme [facility] URIC ACID (test code = 2501-5) 6.4 MG/DL See_Comment H [Automated messa ge] The system which generated this result transmitted reference range: 2.7-6.1 MG/DL. The reference range was not used to interpret this result as normal/abnormal. TSH RFLX FT4 AND [id number] 00:00:00* Test Item Value Reference Range Interpretation Comme [facility] TSH RFLX FT4 AND FT3 (test code = 75210-6) 3.360 UIU/ML See_Comment [Automated messa ge] The system which generated this result transmitted reference range: 0.400-4.100 UIU/ML. The reference range was not used to interpret this result as normal/abnormal. LIPID PANEL WITH REFLEX DIRECT [id number] 00:00:00* Test Item Value Reference Range Interpretation Comme [facility] CALC LDL CHOL (test code = 21471-9) 87 MG/DL See_Comment [Automated messa ge] The system which generated this result transmitted reference range: <100 MG/DL. The reference range was not used to interpret this result as normal/abnormal. CHOLESTEROL (test code = 2093-3) 144 MG/DL See_Comment [Automated messa ge] The system which generated this result transmitted reference range: <200 MG/DL. The reference range was not used to interpret this result as normal/abnormal. HDL CHOLESTEROL (test code = 2085-9) 37 MG/DL See_Comment L [Automated messa ge] The system which generated this result transmitted reference range: >39 MG/DL. The reference range was not used to interpret this result as normal/abnormal. RISK RATIO LDL/HDL (test code = 46240-9) 2.35 RATIO See_Comment [Automated message] The system which generated this result transmitted reference range: <3.22 RATIO. The reference range was not used to interpret this result as normal/abnormal. TRIGLYCERIDES (test code = 2571-8) 108 MG/DL See_Comment [Automated messa ge] The system which generated this result transmitted reference range: <150 MG/DL. The reference range was not used to interpret this result as normal/abnormal. IRON BINDING CAPACITY AND IRON AND % [id number] 00:00:00* Test Item Value Reference Range Interpretation Comme nts CALC % IRON SAT (test code = 2502-3) 36 % See_Comment [Automated messa ge] The system which generated this result transmitted reference range: 20-50 %. The reference range was not used to interpret this result as normal/abnormal. CALC TOTAL IBC (test code = 23883-4) 188 UG/DL See_Comment L [Automated messa ge] The system which generated this result transmitted reference range: 250-450 UG/DL. The reference range was not used to interpret this result as normal/abnormal. IRON, SERUM (test code = 2498-4) 68 UG/DL See_Comment [Automated messa ge] The system which generated this result transmitted reference range: 37-145 UG/DL. The reference range was not used to interpret this result as normal/abnormal. UNSATURATED IBC (test code = 2501-5) 120 UG/DL See_Comment [Automated messa ge] The system which generated this result transmitted reference range: 112-347 UG/DL. The reference range was not used to interpret this result as normal/abnormal. COMPREHENSIVE METABOLIC [id number] 00:00:00* Test Item Value Reference Range Interpretation Comme nts ALBUMIN (test code = 1751-7) 4.2 G/DL See_Comment [Automated messa ge] The system which generated this result transmitted reference range: 3.5-5.2 G/DL. The reference range was not used to interpret this result as normal/abnormal. ALKALINE PHOSPHATASE (test code = 6768-6) 76 U/L See_Comment [Automated message] The system which generated this result transmitted reference range: 40-140 U/L. The reference range was not used to interpret this result as normal/abnormal. BILIRUBIN, TOTAL (test code = 1975-2) 0.5 MG/DL See_Comment [Automated message] The system which generated this result transmitted reference range: <=1.2 MG/DL. The reference range was not used to interpret this result as normal/abnormal. BUN (test code = 3094-0) 15 MG/DL See_Comment [Automated messa ge] The system which generated this result transmitted reference range: 8-23 MG/DL. The reference range was not used to interpret this result as normal/abnormal. CALCIUM (test code = 17061-2) 9.3 MG/DL See_Comment [Automated messa ge] The system which generated this result transmitted reference range: 8.5-10.5 MG/DL. The reference range was not used to interpret this result as normal/abnormal. CALC A/G RATIO (test code = 1759-0) 1.5 RATIO See_Comment [Automated messa ge] The system which generated this result transmitted reference range: 1.0-2.6 RATIO. The reference range was not used to interpret this result as normal/abnormal. CALC BUN/CREAT (test code = 3097-3) 9 RATIO See_Comment [Automated messa ge] The system which generated this result transmitted reference range: 6-28 RATIO. The reference range was not used to interpret this result as normal/abnormal. CALC GLOBULIN (test code = 86418-2) 2.8 G/DL See_Comment [Automated messa ge] The system which generated this result transmitted reference range: 1.9-3.7 G/DL. The reference range was not used to interpret this result as normal/abnormal. CARBON DIOXIDE (test code = 1963-8) 24 MEQ/L See_Comment [Automated messa ge] The system which generated this result transmitted reference range: 19-31 MEQ/L. The reference range was not used to interpret this result as normal/abnormal. CHLORIDE (test code = 2075-0) 104 MEQ/L See_Comment [Automated messa ge] The system which generated this result transmitted reference range: 95-107 MEQ/L. The reference range was not used to interpret this result as normal/abnormal. CREATININE (test code = 2160-0) 1.68 MG/DL See_Comment H [Automated messa ge] The system which generated this result transmitted reference range: 0.60-1.30 MG/DL. The reference range was not used to interpret this result as normal/abnormal. eGFR (2020 CKD-EPI) (test code = 14211-7) 34 ML/MIN/1.73 See_Comment L [Automated messa ge] The system which generated this result transmitted reference range: >60 ML/MIN/1.73. The reference range was not used to interpret this result as normal/abnormal. GLUCOSE (test code = 1558-6) 104 MG/DL See_Comment H [Automated messa ge] The system which generated this result transmitted reference range: 70-99 MG/DL. The reference range was not used to interpret this result as normal/abnormal. POTASSIUM (test code = 2823-3) 4.8 MEQ/L See_Comment [Automated messa ge] The system which generated this result transmitted reference range: 3.5-5.4 MEQ/L. The reference range was not used to interpret this result as normal/abnormal. PROTEIN, TOTAL (test code = 2885-2) 7.0 G/DL See_Comment [Automated messa ge] The system which generated this result transmitted reference range: 6.1-8.3 G/DL. The reference range was not used to interpret this result as normal/abnormal. AST (test code = 1920-8) 12 U/L See_Comment [Automated messa ge] The system which generated this result transmitted reference range: 9-40 U/L. The reference range was not used to interpret this result as normal/abnormal. ALT (test code = 1742-6) 14 U/L See_Comment [Automated messa ge] The system which generated this result transmitted reference range: 5-40 U/L. The reference range was not used to interpret this result as normal/abnormal. SODIUM (test code = 2951-2) 139 MEQ/L See_Comment [Automated messa ge] The system which generated this result transmitted reference range: 133-146 MEQ/L. The reference range was not used to interpret this result as normal/abnormal. US PELVIS COMPLETE WITH [id number] 23:04:561. ?Simple cyst in the left ovary measuring up to 3.6 cm, requires annualultrasound follow-up. 2. ?U terine fibroid measuring up to 2.1 cm. Other [...] colorDoppler evaluation of the pelvis was performed. Asphalt Engineer images wereobtained for the record. COMPARISON: None FINDINGS: STATEMENT: Limited exam due to bowel gas and body habitus. Uterus: The uterus is anteverted and normal in size and measur es 7.1 x 3.5 x 4.6cm. The myometrium shows round heterogenous texture at the anterior bodyarea, measuring 2.1 x 2.1 x 1.9 cm with internal vascularity likelyrepresenting fibroid. No focal lesion is detected. The endometrium isnormal in appearance and the thickness measures 0.4 cm. The cervix showsan echoic focus likely representing fluid versus nabothian cyst. [...] anterior to the left ovary withno internal vascularity.Cul-de-sac: No free fluid is present. [facility], Radiant Results Inft User - 05/11/2021 6:06 PM CDT EXAM: USPELVIS COMPLETE WITH TRANSVAGINALHISTORY: 60 years-old Female; hx of ovarian cyst . .TECHNIQUE: Transabdominal and transvaginal ultrasound imaging and colorDoppler evaluation of the pelvis was performed. Asphalt Engineer images wereobtained for the record. COMPARISON: NoneFINDINGS:STATEMENT: Limited exam due to bowel gas and body habitus.Uterus: The uterus is anteverted and normal in size and measures 7.1 x 3.5 x 4.6cm. The myometrium shows round heterogenous texture at the anterior bodyarea, measuring 2.1 x 2.1 x 1.9 cm with internal vascularity likelyrepresenting fibroid. No focal lesionis detected. The endometrium isnormal in appearance and [...] 2.6 cm appears to be anterior to theleft ovary withno internal vascularity.Cul-de-sac: No free fluid is present.IMPRESSION1. Simple cyst in the left ovary measuring up to 3.6 cm, requires annualultrasound follow-up.2. Uterine fibroid measuring up to 2.1 cm. Other smaller multiple fibroidsare suspected.3. Minimal nonspecific free fluid is seen in the pelvis.Preliminary Report Dictated by Resident: Wei Quezada MD., have reviewed this study and agree with theabove report.[facility] HospitalSARS-COV 2 AntigenSARS-COV 2 Antigen
[2024-04-18 09:20] LABS: SARS-CoV-2 Antigen CONTROL BLUE LINE VIS/BG OK
[2024-04-18 09:21] LABS: SARS-CoV-2 Antigen Rapid Res Positive (Negative)
--- NOTE | 2024-04-18 11:24 | RAD REPORT ---
[facility] 8[facility]50 [facility] CLINICAL HISTORY: COUGH COMPARISON: Chest Pa And Lat (2 Views) dated 05/09/2023; Chest Single View dated 05/09/2023; Chest Pa And Lat (2 Views) dated 11/13/2022; Chest Pa And Lat (2 Views) dated 10/26/2022 TECHNIQUE: Portable AP view of the chest. FINDINGS: Developing right medial lower lung airspace opacification. Left lung remains clear. No pn eumothorax or effusion. The cardiomediastinal contours are unremarkable. IMPRESSION: Developing right medial lower lung airspace opacification, may reflect atelectasis or ea rly airspace disease.
--- NOTE | 2024-04-18 11:27 | ER ---
Nurse's Notes [facility] Name: Sergio Otero Age: 63 yrs Sex: Female : 1960 Arrival Date: 04/18/2024 Time: 08:03 Bed 12 Private MD: Diagnosis: SARS-associated coronavirus as the cause of diseases classified elsewhere Presentation: 04/18 08:32 Chief complaint: Cough, congestion, and burning with urination x 2 days. Coronavirus hb screen: At this time, the client does not indicate any symptoms associated with coronavirus-19. Ebola Screen: No symptoms or risks identified at this time. Initial Sepsis Screen: Does the patient meet any 2 criteria? No. Patient's initial sepsis screen is negative. Does the patient have a suspected source of infection? No. Patient's initial sepsis screen is negative. Risk Assessment: Do you want to hurt yourself or someone else? Patient reports no desire to harm self or others. Onset of symptoms was April 17, 2024. 08:32 Method Of Arrival: Ambulatory hb 08:32 Acuity: SIMONE 4 hb Triage Assessment: 08:33 General: Appears in no apparent distress. Behavior is calm, cooperative. Pain: Denies hb pain. Neuro: Level of Consciousness is awake, alert, obeys commands, Oriented to person, place, time, situation. Cardiovascular: Patient's skin is warm and dry. Respiratory: Reports cough that is Respiratory effort is even, unlabored, Respiratory pattern is regular, symmetrical. Historical: - Allergies: 08:33 No Known Drug Allergies; hb - Home Meds: 10:07 amlodipine oral once daily [Active]; amlodipine oral once daily [Active]; esomeprazole hb magnesium 40 mg Oral cpDR 1 cap once daily [Active]; Iron CR Oral daily [Active]; Lasix 20 mg Oral tab 1 tab once daily [Active]; losartan 25 mg Oral tab 1 tab once daily [Active]; pravastatin Oral [Active]; - PMHx: 08:33 Gout; Hyperlipidemia; Hypertension; kidney function is low; Sickle Cell Trait; hb - PSHx: 08:33 section; foot; Shoulder (Gout); hb - Immunization history:: Adult Immunizations up to date. - Infectious Disease History:: Denies. - Social history:: Smoking status: Patient denies any tobacco usage or history of. - Family history:: not pertinent. - Hospitalizations: : No recent hospitalization is reported. Screenin:05 [facility] ED Fall Risk Assessment (Adult) History of falling in the last 3 months, hb including since admission No falls in past 3 months (0 pts) Confusion or Disorientation No (0 pts) Intoxicated or Sedated No (0 pts) Impaired Gait No (0 pts) Mobility Assist Device Used No (0 pt) Altered Elimination No (0 pt) Score/Fall Risk Level 0 - 2 = Low Risk Oriented to surroundings, Maintained a safe environment, Educated pt \T\ family on fall prevention, incl call for assistance when getting out of bed. Abuse screen: Denies threats or abuse. Denies injuries from another. Nutritional screening: No deficits noted. Tuberculosis screening: No symptoms or risk factors identified. Assessment: 09:05 General: See triage assessment. hb 10:07 Reassessment: Patient appears in no apparent distress at this time. Patient and/or hb family updated on plan of care and expected duration. Pain level reassessed. Patient is alert, oriented x 3, equal unlabored respirations, skin warm/dry/pink. Vital Signs: 08:32 BP 108 / 74; Pulse 85; Resp 20; Temp 98.4(O); Pulse Ox 100% on R/A; Weight 105.23 kg; hb Height 5 ft. 6 in. ; Pain 7/10; 08:32 Body Mass Index 37.45 (105.23 kg, 167.64 cm) hb 08:32 Pain Scale: Adult hb ED Course: 08:05 Patient arrived in ED. mr 08:06 Jairon Zepeda MD is Attending Physician. rn 08:33 Triage completed. hb 08:33 Arm band placed on. hb 08:51 XRAY Chest (1 view) In Process Unspecified. EDMS 09:05 Idania Weber, RN is Primary Nurse. hb 09:05 Patient has correct armband on for positive identification. Bed in low position. Call hb light in reach. Provided Education on: tests, result times. 09:05 Strep Sent. hb 09:05 Flu Sent. hb 09:05 SARS RAPID Sent. hb 09:06 COVID swab sent to lab. Flu and/or RSV swab sent to lab. Strep swab sent to lab. hb 09:15 Warm blanket given. PO fluids given. hb 11:16 Urinalysis w/ reflexes Sent. hb 11:45 No provider procedures requiring assistance completed. Patient did not have IV access hb during this emergency room visit. Administered Medications: No medications were administered Medication: 09:05 VIS not applicable for this client. hb Outcome: 11:27 Discharge ordered by . rn 11:45 Discharged to home ambulatory, 11:45 Condition: stable 11:45 Discharge instructions given to patient, Instructed on discharge instructions, follow up and referral plans. medication usage, Demonstrated understanding of instructions, follow-up care, medications, Prescriptions given X 2, 11:45 Patient left the ED. hb Signatures: Dispatcher [employer] EDMS Monse Jon, Reg Reg mr Jairon Zepeda MD MD rn Baxter, Heather, RN RN hb
--- NOTE | 2024-04-18 11:27 | EDPHYS ---
Physician Documentation [facility] Name: Sergio Otero Age: 63 yrs Sex: Female : 1960 Arrival Date: 04/18/2024 Time: 08:03 Bed 12 Private MD: ED Physician Jairon Zepeda HPI: 04/18 09:52 This 63 yrs old Black Female presents to ER via Ambulatory with complaints of Cough, rn Congestion, Urinary Problem. 09:52 The patient or guardian reports cough, flu symptoms, low-grade fever, myalgias. rn 09:52 Onset: The symptoms/episode began/occurred 2 day(s) ago. Severity of symptoms: At their rn worst the symptoms were mild, in the emergency department the symptoms are unchanged. Modifying factors: The symptoms are alleviated by nothing, the symptoms are aggravated by nothing. Associated signs and symptoms: Pertinent positives: fever, rhinorrhea, sore throat, Pertinent negatives: chest pain. The patient has not experienced similar symptoms in the past. The patient has not recently seen a physician. Historical: - Allergies: 08:33 No Known Drug Allergies; hb - Home Meds: 10:07 amlodipine oral once daily [Active]; amlodipine oral once daily [Active]; esomeprazole hb magnesium 40 mg Oral cpDR 1 cap once daily [Active]; Iron CR Oral daily [Active]; Lasix 20 mg Oral tab 1 tab once daily [Active]; losartan 25 mg Oral tab 1 tab once daily [Active]; pravastatin Oral [Active]; - PMHx: 08:33 Gout; Hyperlipidemia; Hypertension; kidney function is low; Sickle Cell Trait; hb - PSHx: 08:33 section; foot; Shoulder (Gout); hb - Immunization history:: Adult Immunizations up to date. - Infectious Disease History:: Denies. - Social history:: Smoking status: Patient denies any tobacco usage or history of. - Family history:: not pertinent. - Hospitalizations: : No recent hospitalization is reported. 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 Head/Face: Normocephalic, atraumatic. ENT: Mild pharyngeal erythema and tender cervical lymphadenopathy. No meningismus. Cardiovascular: Regular rate and rhythm. No pulse deficits. Respiratory: No increased work of breathing, no retractions or nasal flaring. Abdomen/GI: Soft, non-tender MS/ Extremity: Pulses equal, no cyanosis. Neurovascular intact. Full, normal range of motion. Equal circumference. Neuro: Awake and alert, GCS 15 Vital Signs: 08:32 BP 108 / 74; Pulse 85; Resp 20; Temp 98.4(O); Pulse Ox 100% on R/A; Weight 105.23 kg; hb Height 5 ft. 6 in. ; Pain 7/10; 08:32 Body Mass Index 37.45 (105.23 kg, 167.64 cm) hb 08:32 Pain Scale: Adult hb MDM: 08:06 Patient medically screened. rn 11:25 Differential Diagnosis: Bronchitis Upper Respiratory Infection Viral Syndrome Pneumonia rn Other COVID, UTI. Data reviewed: vital signs, nurses notes, lab test result(s), radiologic studies, plain films, and as a result, I will discharge patient. Counseling: I had a detailed discussion with the patient and/or guardian regarding the historical points, exam findings, and any diagnostic results supporting the discharge/admit diagnosis, lab results, radiology results, the need for outpatient follow up, to return to the emergency department if symptoms worsen or persist or if there are any questions or concerns that arise at home. ED course: Patient states needs to leave now, cannot wait any longer, understands urine sample has not returned. Will discharge home with return precautions.. 04/18 08:38 Order name: Strep rn 04/18 08:38 Order name: SARS RAPID; Complete Time: 10:07 rn 04/18 08:38 Order name: Flu; Complete Time: 10:07 04/18 08:38 Order name: Urinalysis w/ reflexes; Complete Time: 11:35 04/18 09:22 Order name: Throat Culture [facility] 04/18 11:33 Order name: Urine Culture [facility] 04/18 08:38 Order name: XRAY Chest (1 view); Complete Time: 11:25 rn Administered Medications: No medications were administered Disposition Summary: 04/18/24 11:27 Discharge Ordered Notes: Location: Home rn Problem: new rn Symptoms: have improved rn Condition: Stable rn Diagnosis - SARS-associated coronavirus as the cause of diseases classified elsewhere rn Followup: rn - With: Private Physician - When: As needed - Reason: Recheck today's complaints, Re-evaluation by your physician Discharge Instructions: - Discharge Summary Sheet rn - COVID-19 rn - 10 Things You Can Do to Manage Your COVID-19 Symptoms at Home - [facility] (05/06/2021) rn - Viral Illness, Adult rn Forms: - Medication Reconciliation Form rn - Antibiotic rn building - Prescription Opioid Use rn - Patient Portal Instructions rn - Leadership Thank You Letter rn Prescriptions: - Paxlovid 300 mg (150 mg x 2)-100 mg Oral Tablet, Dose Pack - take 1 dose pack ORAL route as directed on dose pack take TWO 150 mg tablets of rn nirmatrelvir with ONE 100 mg tablet of ritonavir twice daily for 5 days; 1 packet; Refills: 0, Product Selection Permitted - Augmentin 875-125 mg Oral Tablet - take 1 tablet ORAL route every 12 hours for 10 days; 20 tablet; Refills: 0, rn Product Selection Permitted Signatures: Dispatcher [employer] [facility] Jairon Zepeda MD MD rn Baxter, Heather, RN RN
[2024-04-18 11:30] LABS: Specific Gravity 1.016 (1.005-1.030); Sqamous Epithelial <5 /HPF (None Seen); Transitional Epithelial <5 /HPF (None Seen); Urine Bacteria <20 /HPF (<20); Urine Bilirubin NEGATIVE (Negative); Urine Blood Negative (Negative); Urine Clarity Extremely Turbid (Clear); Urine Color Yellow (Yellow); Urine Culture Reflex Order REFLEXED; Urine Glucose NEGATIVE (Negative); Urine Granular Casts 0-5 /LPF (None Seen); Urine Ketones NEGATIVE (Negative); Urine Microscopic Reflex YN ORDER UMIC; Urine Mucus Slight /HPF (None Seen); Urine Nitrite NEGATIVE (Negative); Urine Protein 1+ (Negative); Urine RBC <5 /HPF (None Seen); Urine Triple Phosphate Crystal Few /HPF (None Seen); Urine Urobilinogen Normal (Normal); Urine WBC 20-50 /HPF (<5); Urine pH 7.5 (5.0-7.0)
[2024-04-18 12:16] VITALS: BP 108/74; TEMP 98.4; O2SAT 100
== END 2024-04-18 11:45 | disposition home or self-care (01) ==
LOC: ER 08:03
DX: U07.1 COVID-19 (principal)
CPT/HCPCS: 36415; 71045; 81001; 87070; 87081; 87086; 87088; 87804; 87811; 99283

== ENCOUNTER 2024-07-24 08:00 | Emergency (ER) | payer MEDICARE ==
--- OUTSIDE RECORDS SUMMARY | 2024-07-24 08:06 | XMS REPORT | Continuity of Care Document ---
Author Name Unknown Address [address] [facility] [address] [place] [id number] [facility] Address [address] [facility] 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 Name Role Phone Sudha Traore Primary Care Physician [phone] Karlee Colvin Attending Clinician Unavailable Sudha Traore Attending Clinician Unavailable Azar Watson Attending Clinician Unavailable Marissa Rodriguez Attending Clinician Unavailable Anabelle Malik Attending Clinician Madonna Talavera Attending Clinician [email or web address] Attending Clinician Unavaila augustin Doctor Unassigned, [place] Attending Clinician SHILPA Gimenez Attending Clinician Unavailable Taj_Ranjit Attending Clinician Unavailable Shilpa Bourgeois PA-C Attending Clinician [phone] [email or web address] Admitting Clinician Unavaila augustin Vang_R Admitting Clinician Unavailable Payers Payer Name Policy Type Policy Number Effective Date Expirati on Date Source [employer] (MEDICARE REPLACEMENT HMO) [id number] 2021 00:00:00 [employer] Medicare Replace C1 [id number] [facility] [employer] Medicare Replace C1 [id number] [facility] [employer] Medicare Replace C1 [id number] [facility] [employer] Medicare Replace C1 [id number] [facility] [employer] Medicare Replace C1 [id number] [facility] Problems Condition Name Condition Details Condition Category Status Onset Date Resolution Date Last Treatment Date Treating Clinician Comments Source Essential hypertensi on, benign Essential hypertensi on, benign Disease Active 04-08 00:00: 00 [facility] Hyperlipid emia Hyperlipid emia Disease Active 04-08 00:00: 00 [facility] Venous (periphera l) insufficie ncy Venous (periphera l) insufficie ncy Disease Active 05-12 00:00: 00 Overview: Formattin g of this note might be different from the original. 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 Disease Active 12-11 00:00: 00 [facility] [id number] Family history of heart disease Problem [facility] Mixed hyperlipid emia Hyperlipid emia, mixed Problem [facility] Polyp colon Polyp of colon, unspecifie d part of colon, unspecifie d type Problem [facility] [id number] Generalize d weakness Problem [facility] [id number] Polyarthra lgia Problem [facility] Sickle cell trait Sickle-mateo l trait Problem [facility] [id number] Hyperurice davy Problem [facility] Pulmonary hypertensi on Pulmonary hypertensi on Problem [facility] [id number] Diverticul osis large intestine w/o perforatio n or abscess w/o bleeding Problem [facility] [id number] Pain in left foot Problem [facility] Iron deficiency anemia due to chronic blood loss Iron deficiency anemia due to chronic blood loss Problem [facility] [id number] Diverticul osis Problem [facility] Heel pain Heel pain Problem [facility] Glaucoma Glaucoma of both eyes, unspecifie d glaucoma type Problem [facility] [id number] Pain in left leg Problem [facility] [id number] Pain in right leg Problem [facility] [id number] Tiredness Problem [facility] [id number] Legal blindness Problem [facility] [id number] Acute midline low back pain with left-sided sciatica Problem [facility] [id number] Acute gout of right foot, unspecifie d cause Problem [facility] Gout Gout Problem [facility] [id number] Urinary frequency Problem [facility] [id number] Depression with anxiety Problem [facility] [id number] 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, unspecifie d type Problem [facility] Blindness AND/OR vision impairment level (disorder) Blindness and low vision Problem [facility] Chronic kidney disease stage 3A Stage 3a chronic kidney disease Problem [facility] [id number] Left adrenal mass Problem [facility] [id number] History of colon polyps Problem [facility] [id number] Gastroesop hageal reflux disease, unspecifie d whether esophagiti s present Problem [facility] [id number] Other chronic pain Problem [facility] [id number] Injury of left acromiocla vicular joint, subsequent encounter Problem [facility] [id number] Pain, joint, shoulder, right Problem [facility] 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 Problem [facility] [id number] Mild intermitte nt asthma without complicati on Problem [facility] Chronic kidney disease stage 3B (disorder) Stage 3b chronic kidney disease (CKD) Problem [facility] 58306876 Pain in right foot Problem [facility] [id number] Memory changes Problem [facility] [id number] Pain, joint, ankle, right Problem [facility] 677238161 Pain in left ankle and joints of left foot Problem [facility] [id number] Anemia in chronic kidney disease Problem [facility] Varicose vein Varicose vein Problem [facility] [id number] Morbid (severe) obesity due to excess calories Problem [facility] Chronic renal disease Chronic kidney disease, unspecifie d CKD stage Problem [facility] Essential hypertensi on Essential hypertensi on Problem [facility] [id number] Morbid obesity Problem [facility] [id number] Iron deficiency anemia, unspecifie d iron deficiency anemia type Problem [facility] [id number] Rash and nonspecifi c skin eruption Problem [facility] 74714442 Varicose veins of both lower extremitie s, unspecifie d whether complicate d Problem [facility] Obesity Obesity Problem [facility] Allergies, Adverse Reactions, Alerts Allergy Name Allergy Type Status Severity Reaction(s) Onset Date Inactive Date Treating Clinician Comments Source NO KNOWN ALLERGIE S Drug Class Active [facility] Social History Social Habit Start Date Stop Date Quantity Comments Source History of Tobacco Use [facility] Sex Assigned At [facility] Exposure to SARS-CoV-2 (event) Not sure [facility] Alcohol intake 2021-06-15 00:00:00 2021-06-15 00:00:00 Current non-drinker of alcohol (finding) [facility] Tobacco use and exposure 2010-12-11 00:00:00 2010-12-11 00:00:00 Smokeless tobacco non-user [facility] Smoking Status Start Date Stop Date Source Never Smoker [facility] Medications Ordered Medication Name Filled Medication Name Start Date Stop Date Current Medication? Ordering Clinician Indication Dosage Frequency Signature (SIG) Comments Components Source Rosuvastati n Calcium 10 MG Rosuvastati n Calcium 10 MG 05-13 00:00: 00 No 1{table t} QD Rosuvastat in Calcium 10 MG Lidocaine Lidocaine 2021-10 00:00: 00 No 20mg [facility] Kenalog (Triamcinol one) Kenalog (Triamcinol one) 2021-10 00:00: 00 No 40mg [facility] losartan (COZAAR) 25 mg tablet 01-13 13:56: 11 Yes 25mg Take 25 mg by mouth daily. [facility] Cholecalcif greg, Vitamin D3, (VITAMIN D3) 1,000 unit Cap 01-13 13:56: 11 Yes 1{capsu le} Take 1 Cap by mouth daily. [facility] aspirin (ASPIRIN CHILDRENS) 81 mg chewable tablet 01-13 13:56: 11 Yes 81mg Take 81 mg by mouth daily. [facility] losartan (COZAAR) 25 mg tablet 01-13 08:56: 11 Yes 25mg Take 25 mg by mouth daily. [facility] Cholecalcif greg, Vitamin D3, (VITAMIN D3) 1,000 unit Cap 01-13 08:56: 11 Yes 1{capsu le} Take 1 Cap by mouth daily. [facility] aspirin (ASPIRIN CHILDRENS) 81 mg chewable tablet 01-13 08:56: 11 Yes 81mg Take 81 mg by mouth daily. [facility] buPROPion 100 mg tablet 2019-10 00:00: 00 Yes 100mg Take 100 mg by mouth. [facility] triamcinolo ne 0.1 % lotion 04-12 00:00: 00 Yes Apply to area(s) 3 (three) times daily. [facility] losartan (COZAAR) 25 mg tablet 04-08 16:22: 43 Yes 25mg Take 25 mg by mouth daily. [facility] Cholecalcif greg, Vitamin D3, (VITAMIN D3) 1,000 unit Cap 04-08 15:54: 30 Yes 1{capsu le} Take 1 Cap by mouth daily. [facility] aspirin (ASPIRIN CHILDRENS) 81 mg chewable tablet 04-08 15:54: 30 Yes 81mg Take 81 mg by mouth daily. [facility] metoprolol tartrate (LOPRESSOR) 100 mg tablet 04-19 00:00: 00 Yes 100mg Take 1 Tab by mouth daily. [facility] pravastatin (PRAVACHOL) 40 mg tablet 12-09 00:00: 00 Yes 40mg Take 40 mg by mouth 2 (two) times daily. [facility] ferrous sulfate (IRON) 325 mg (65 mg Iron) tablet 12-09 00:00: 00 Yes 325mg Take 325 mg by mouth daily. [facility] Furosemide 20 MG Furosemide 20 MG No [...] 0.01 % No 1{drop_ into_af fected_ eye_in_ the_jake up} QD Lumigan 0.01 % Gabapentin 100 MG Gabapentin 100 MG No Gabapentin 100 MG Albuterol Sulfate HFA 108 (90 Base) MCG/ACT Albuterol Sulfate HFA 108 (90 Base) MCG/ACT No 1{puff_ as_need ed} 6xD Albuterol Sulfate HFA 108 (90 Base) MCG/ACT Ketoconazol e 2 % Ketoconazol e 2 % No 1{appli cation} BID Ketoconazo le 2 % Mupirocin 2 % Mupirocin 2 % No 1{appli cation} BID Mupirocin 2 % amLODIPine Besylate 5 MG amLODIPine Besylate 5 MG No 1{table t} QD amLODIPine Besylate 5 MG Dicyclomine HCl 20 MG Dicyclomine HCl 20 MG No Dicyclomin e HCl 20 MG Nystatin 827072 UNIT/GM Nystatin 771140 UNIT/GM No 1{appli cation} BID Nystatin 113971 UNIT/GM Olmesartan Medoxomil 20 MG Olmesartan Medoxomil 20 MG No 1{table t} QD Olmesartan Medoxomil 20 MG Vital Signs Vital Name Observation Time Observation Value Comments S ource height 2024-05-13 09:20:00 64 [in_i] [facility] weight 2024-05-13 09:20:00 240 [lb_av] [facility] temperature 2024-05-13 09:20:00 97.3 [degF] [facility] bmi 2024-05-13 09:20:00 41.19 kg/m2 [facility] oximetry 2024-05-13 09:20:00 99 % [facility] respiratory rate 2024-05-13 09:20:00 16 /min [facility] blood pressure systolic 2024-05-13 09:20:00 120 mm[Hg] [facility] blood pressure diastolic 2024-05-13 09:20:00 72 mm[Hg] [facility] height 2024-04-01 09:40:00 64 [in_i] [facility] weight 2024-04-01 09:40:00 232.8 [lb_av] [facility] temperature 2024-04-01 09:40:00 97.2 [degF] Com [facility] bmi 2024-04-01 09:40:00 39.96 kg/m2 [facility] oximetry 2024-04-01 09:40:00 99 % [facility] respiratory rate 2024-04-01 09:40:00 16 /min [facility] blood pressure systolic 2024-04-01 09:40:00 138 mm[Hg[facility] blood pressure diastolic 2024-04-01 09:40:00 86 mm[Hg] Common [facility] height 2024-01-30 08:40:00 64 [in_i] [facility] weight 2024-01-30 08:40:00 236 [lb_av] [facility] temperature 2024-01-30 08:40:00 97.3 [degF] Com [facility] bmi 2024-01-30 08:40:00 40.5 kg/m2 [facility] oximetry 2024-01-30 08:40:00 98 % [facility] respiratory rate 2024-01-30 08:40:00 16 /min [facility] blood pressure systolic 2024-01-30 08:40:00 136 mm[Hg] [facility] blood pressure diastolic 2024-01-30 08:40:00 84 mm[Hg] Common [facility] height 2023-10-12 10:00:00 64 [in_i] [facility] weight 2023-10-12 10:00:00 242 [lb_av] [facility] temperature 2023-10-12 10:00:00 97.2 [degF] Com [facility] bmi 2023-10-12 10:00:00 41.53 kg/m2 [facility] oximetry 2023-10-12 10:00:00 98 % [facility] respiratory rate 2023-10-12 10:00:00 16 /min [facility] blood pressure systolic 2023-10-12 10:00:00 126 mm[Hg] [facility] blood pressure diastolic 2023-10-12 10:00:00 70 mm[Hg] [facility] height 2023-07-11 10:00:00 64 [in_i] [facility] weight 2023-07-11 10:00:00 240.0 [lb_av] [facility] temperature 2023-07-11 10:00:00 97.2 [degF] Com [facility] bmi 2023-07-11 10:00:00 41.19 kg/m2 [facility] oximetry 2023-07-11 10:00:00 99 % [facility] respiratory rate 2023-07-11 10:00:00 16 /min [facility] blood pressure systolic 2023-07-11 10:00:00 134 mm[Hg] [facility] blood pressure diastolic 2023-07-11 10:00:00 70 mm[Hg] Common [facility] height 2023-05-28 14:40:00 64 [in_i] [facility] weight 2023-05-28 14:40:00 240 [lb_av] [facility] temperature 2023-05-28 14:40:00 97.3 [degF] Com [facility] bmi 2023-05-28 14:40:00 41.19 kg/m2 [facility] oximetry 2023-05-28 14:40:00 99 % [facility] respiratory rate 2023-05-28 14:40:00 17 /min [facility] blood pressure systolic 2023-05-28 14:40:00 134 mm[Hg] [facility] blood pressure diastolic 2023-05-28 14:40:00 78 mm[Hg] [facility] height 2023-04-06 09:40:00 64 [in_i] [facility] weight 2023-04-06 09:40:00 242.2 [lb_av] [facility] temperature 2023-04-06 09:40:00 97.3 [degF] Com [facility] bmi 2023-04-06 09:40:00 41.57 kg/m2 [facility] oximetry 2023-04-06 09:40:00 98 % [facility] respiratory rate 2023-04-06 09:40:00 16 /min [facility] blood pressure systolic 2023-04-06 09:40:00 138 mm[Hg] [facility] blood pressure diastolic 2023-04-06 09:40:00 72 mm[Hg] [facility] height 2023-02-07 10:00:00 64 [in_i] [facility] weight 2023-02-07 10:00:00 246 [lb_av] [facility] temperature 2023-02-07 10:00:00 97.3 [degF] Com [facility] bmi 2023-02-07 10:00:00 42.22 kg/m2 [facility] oximetry 2023-02-07 10:00:00 99 % [facility] respiratory rate 2023-02-07 10:00:00 16 /min [facility] blood pressure systolic 2023-02-07 10:00:00 128 mm[Hg] [facility] blood pressure diastolic 2023-02-07 10:00:00 74 mm[Hg] [facility] height 2023-01-29 09:00:00 64 [in_i] [facility] weight 2023-01-29 09:00:00 250 [lb_av] [facility] temperature 2023-01-29 09:00:00 97.2 [degF] Com [facility] bmi 2023-01-29 09:00:00 42.91 kg/m2 [facility] blood pressure systolic 2023-01-29 09:00:00 131 mm[Hg] [facility] blood pressure diastolic 2023-01-29 09:00:00 71 mm[Hg] [facility] height 2022-11-24 08:20:00 64 [in_i] [facility] weight 2022-11-24 08:20:00 247 [lb_av] [facility] temperature 2022-11-24 08:20:00 97.6 [degF] Com [facility] bmi 2022-11-24 08:20:00 42.39 kg/m2 [facility] oximetry 2022-11-24 08:20:00 99 % [facility] respiratory rate 2022-11-24 08:20:00 16 /min [facility] blood pressure systolic 2022-11-24 08:20:00 130 mm[Hg] [facility] blood pressure diastolic 2022-11-24 08:20:00 70 mm[Hg] [facility] height 2022-11-08 09:00:00 64 [in_i] [facility] weight 2022-11-08 09:00:00 246.4 [lb_av] Co [facility] bmi 2022-11-08 09:00:00 42.29 kg/m2 [facility] height 2022-09-04 11:00:00 64 [in_i] [facility] weight 2022-09-04 11:00:00 246.4 [lb_av] Co [facility] temperature 2022-09-04 11:00:00 97.3 [degF] Com [facility] bmi 2022-09-04 11:00:00 42.29 kg/m2 [facility] oximetry 2022-09-04 11:00:00 98 % [facility] respiratory rate 2022-09-04 11:00:00 16 /min [facility] blood pressure systolic 2022-09-04 11:00:00 132 mm[Hg] [facility] blood pressure diastolic 2022-09-04 11:00:00 68 mm[Hg] [facility] height 2022-08-23 09:00:00 64 [in_i] [facility] weight 2022-08-23 09:00:00 242 [lb_av] [facility] temperature 2022-08-23 09:00:00 97.3 [degF] Com [facility] bmi 2022-08-23 09:00:00 41.53 kg/m2 [facility] blood pressure systolic 2022-08-23 09:00:00 132 mm[Hg] Common [facility] blood pressure diastolic 2022-08-23 09:00:00 80 mm[Hg] [facility] height 2022-08-02 09:00:00 64 [in_i] [facility] weight 2022-08-02 09:00:00 242 [lb_av] [facility] temperature 2022-08-02 09:00:00 97.3 [degF] Com [facility] bmi 2022-08-02 09:00:00 41.53 kg/m2 [facility] blood pressure systolic 2022-08-02 09:00:00 136 mm[Hg] Common [facility] blood pressure diastolic 2022-08-02 09:00:00 80 mm[Hg] Common [facility] height 2022-07-05 10:00:00 64 [in_i] [facility] weight 2022-07-05 10:00:00 240 [lb_av] [facility] temperature 2022-07-05 10:00:00 97.1 [degF] Com [facility] bmi 2022-07-05 10:00:00 41.19 kg/m2 [facility] blood pressure systolic 2022-07-05 10:00:00 136 mm[Hg] [facility] blood pressure diastolic 2022-07-05 10:00:00 84 mm[Hg] [facility] height 2022-05-30 10:00:00 64 [in_i] [facility] weight 2022-05-30 10:00:00 250.0 [lb_av] [facility] temperature 2022-05-30 10:00:00 97.6 [degF] Com [facility] bmi 2022-05-30 10:00:00 42.91 kg/m2 [facility] oximetry 2022-05-30 10:00:00 97 % [facility] respiratory rate 2022-05-30 10:00:00 18 /min [facility] blood pressure systolic 2022-05-30 10:00:00 136 mm[Hg] [facility] blood pressure diastolic 2022-05-30 10:00:00 70 mm[Hg] [facility] height 2022-02-24 10:00:00 64 [in_i] [facility] weight 2022-02-24 10:00:00 244.6 [lb_av] [facility] temperature 2022-02-24 10:00:00 97.2 [degF] Com [facility] bmi 2022-02-24 10:00:00 41.98 kg/m2 [facility] oximetry 2022-02-24 10:00:00 98 % [facility] respiratory rate 2022-02-24 10:00:00 18 /min [facility] blood pressure systolic 2022-02-24 10:00:00 135 mm[Hg] [facility] blood pressure diastolic 2022-02-24 10:00:00 82 mm[Hg] [facility] height 2022-01-16 10:20:00 64 [in_i] [facility] weight 2022-01-16 10:20:00 240 [lb_av] [facility] temperature 2022-01-16 10:20:00 97.8 [degF] Com [facility] bmi 2022-01-16 10:20:00 41.19 kg/m2 [facility] oximetry 2022-01-16 10:20:00 99 % [facility] respiratory rate 2022-01-16 10:20:00 18 /min [facility] blood pressure systolic 2022-01-16 10:20:00 136 mm[Hg] [facility] blood pressure diastolic 2022-01-16 10:20:00 82 mm[Hg] Common [facility] height 2021-11-16 09:00:00 64 [in_i] [facility] weight 2021-11-16 09:00:00 241 [lb_av] [facility] bmi 2021-11-16 09:00:00 41.36 kg/m2 [facility] height 2021-09-09 08:40:00 64 [in_i] [facility] weight 2021-09-09 08:40:00 241 [lb_av] [facility] bmi 2021-09-09 08:40:00 41.36 kg/m2 [facility] height 2021-08-18 09:00:00 64 [in_i] [facility] weight 2021-08-18 09:00:00 241.0 [lb_av] [facility] temperature 2021-08-18 09:00:00 96.9 [degF] Com [facility] bmi 2021-08-18 09:00:00 41.36 kg/m2 [facility] oximetry 2021-08-18 09:00:00 99 % [facility] respiratory rate 2021-08-18 09:00:00 18 /min [facility] blood pressure systolic 2021-08-18 09:00:00 120 mm[Hg] [facility] blood pressure diastolic 2021-08-18 09:00:00 74 mm[Hg] [facility] Systolic blood pressure 2021-06-15 14:30:00 131 mm[Hg] [facility] Diastolic blood pressure 2021-06-15 14:30:00 75 mm[Hg] [facility] Heart rate 2021-06-15 14:25:00 78 /min [facility] Body temperature 2021-06-15 14:25:[address] [facility] Respiratory rate 2021-06-15 14:25:00 18 /min [facility] Body height 2021-06-15 14:25:00 170.2 cm [facility] Body weight 2021-06-15 14:25:00 113.671 kg [facility] BMI 2021-06-15 14:25:00 39.25 kg/m2 [facility] Systolic blood pressure 2021-01-13 13:54:00 125 mm[Hg] [facility] Diastolic blood pressure 2021-01-13 13:54:00 69 mm[Hg] [facility] Heart rate 2021-01-13 13:54:00 75 /min [facility] Body temperature 2021-01-13 13:54:[address] [facility] Respiratory rate 2021-01-13 13:54:00 16 /min [facility] Body height 2021-01-13 13:54:00 170.2 cm [facility] Body weight 2021-01-13 13:54:00 109.045 kg [facility] BMI 2021-01-13 13:54:00 37.65 kg/m2 [facility] Procedures Procedure Date / Time Performed Performing Clinician Source EXTERNAL PROVIDER RECORDS 2023-03-27 05:01:00 Do ctor Unassigned, [place] [facility] US PELVIS COMPLETE WITH TRANSVAGINAL 2021-05-11 15:20:[address] [facility] ASSIGNMENT OF BENEFITS 2021-05-11 13:41:33 Docto r Unassigned, [place] [facility] EXTERNAL PROVIDER RECORDS 2021-01-24 05:01:00 Do ctor Unassigned, [place] [facility] INSURANCE CORRESPONDENCE 2021-01-19 05:01:00 Doc tor Unassigned, [place] [facility] AUTHORIZATION TO RELEASE PHI TO [facility] 2021-01-13 05:01:00 Doctor Unassigned, [place] [facility] Encounters Start Date/Time End Date/Time Encounter Type Admission Type Attending Clinicians Care Facility Care Department Encounter ID Source 2024-05-09 10:19:00 Outpatient Colvin, Karlee [facility] [id number] [facility] 2024-01-28 09:20:00 Outpatient Colvin, Karlee [facility] [id number] [facility] 2023-11-20 15:38:00 Outpatient Colvin, Karlee [facility] [id number] [facility] [facility] 2023-10-11 15:49:00 Outpatient Colvin, Karlee STLMLC STLMLC [id number] [facility] 2023-10-10 11:02:00 Outpatient Colvin, Karlee STLMLC STLMLC [id number] [facility] 2023-05-25 09:01:00 Outpatient Colvin, Karlee STLMLC STLMLC [id number] [facility] 2023-04-04 09:55:00 Outpatient Colvin, Karlee STLMLC STLMLC [id number] [facility] 2023-02-06 13:31:00 Outpatient Colvin, Karlee STLMLC STLMLC [id number] [facility] 2023-02-05 16:18:00 Outpatient Colvin, Karlee STLMLC STLMLC [id number] [facility] 2023-01-30 15:37:00 Outpatient Colvin, Karlee STLMLC STLMLC [id number] [facility] 2022-11-24 09:46:00 Outpatient Colvin, Karlee STLMLC STLMLC [id number] [facility] 2022-11-08 08:23:00 Outpatient Colvin, Karlee STLMLC STLMLC [id number] [facility] 2022-11-07 15:16:00 Outpatient Colvin, Karlee STLMLC STLMLC [id number] [facility] 2022-10-27 12:43:00 Outpatient Karlee Colvin STLMLC STLMLC [id number] [facility] 2022-08-31 11:26:00 Outpatient Sudha Traore STLMLC STLMLC [id number] [facility] 2022-08-02 09:07:01 Outpatient TraoreSudha mancia STLMLC STLMLC [id number] [facility] 2022-07-06 09:32:00 Outpatient Sudha Traore STLMLC STLMLC [id number] [facility] 2022-07-05 10:27:00 Outpatient Sudha Traore STLMLC STLMLC [id number] [facility] 2022-06-27 09:27:01 Outpatient TraoreSudha mancia STLMLC STLMLC [id number] [facility] 2022-05-26 10:09:00 Outpatient Sudha Traore STLMLC STLMLC [id number] [facility] 2022-02-22 08:24:02 Outpatient Sudha Traore STLMLC STLMLC [id number] [facility] 2022-01-16 10:10:00 Outpatient Sudha Traore STLMLC STLMLC [id number] [facility] 2021-11-16 14:32:02 Outpatient TraoreSudha mancia STLMLC STLMLC [id number] [facility] 2021-11-16 14:31:06 Outpatient TraoreSudha mancia STLMLC STLMLC [id number] [facility] 2021-11-16 13:09:20 Outpatient Sudha Traore STLMLC STLMLC [id number] [facility] 2021-11-16 12:39:12 Outpatient Sudha Traore STLMLC STLMLC [id number] [facility] 2021-11-16 12:34:08 Outpatient Sudha Traore STLMLC STLMLC [id number] [facility] 2021-11-16 12:25:21 Outpatient Eugenie Na STLMLC STLMLC [id number] [facility] 2021-11-16 12:25:09 Outpatient uSdha Traore STLMLC STLMLC [id number] [facility] 2021-11-16 12:14:55 Outpatient Sudha Traore STLMLC STLMLC [id number] [facility] 2021-11-16 12:14:45 Outpatient Azar Watson STLMLC STLMLC [id number] [facility] 2021-11-16 12:11:09 Outpatient Azar Watson STLMLC STLMLC [id number] [facility] 2021-11-16 12:08:17 Outpatient Azar Watson STLMLC STLMLC [id number] [facility] 2021-11-16 12:06:49 Outpatient Azar Watson STLMLC STLMLC [id number] [facility] 2021-11-16 12:01:10 Outpatient STLMLC STLMLC [id number] [facility] 2021-11-16 11:27:56 Outpatient Marissa Rodriguez STLMLC STLMLC [id number] [facility] 2021-11-16 11:13:44 Outpatient Marissa Rodriguez STLMLC STLMLC [id number] [facility] 2021-11-16 11:09:05 Outpatient Marissa Rodriguez STLMLC STLMLC [id number] [facility] 2021-11-16 11:06:45 Outpatient Marissa Rodriguez STLMLC STLMLC [id number] [facility] 2024-06-02 00:00:00 2024-06-02 00:00:00 (TEL) STLMLC STLMLC [id number] [facility] 2024-05-14 00:00:00 2024-05-14 00:00:00 (TEL) STLMLC STLMLC [id number] [facility] 2024-05-13 00:00:00 2024-05-13 00:00:00 OFFICE VISIT ESTAB PT LEVEL 4 STLMLC STLMLC [id number] [facility] 2024-05-06 00:00:00 2024-05-06 00:00:00 (TEL) STLMLC STLMLC [id number] [facility] 2024-05-02 00:00:00 2024-05-02 00:00:00 (TEL) STLMLC STLMLC [id number] [facility] 2024-05-02 00:00:00 2024-05-02 00:00:00 (TEL) STLMLC STLMLC [id number] [facility] 2024-05-01 00:00:00 2024-05-01 00:00:00 (TEL) STLMLC STLMLC [id number] [facility] 2024-04-16 00:00:00 2024-04-16 00:00:00 (TEL) STLMLC STLMLC [id number] [facility] 2024-04-04 00:00:00 2024-04-04 00:00:00 (TEL) STLMLC STLMLC [id number] [facility] 2024-04-02 14:00:00 2024-04-02 14:30:00 [facility] [place] 2.16.840. [id number] [address] [place] [address] 2024-04-01 00:00:00 2024-04-01 00:00:00 OFFICE VISIT ESTAB PT LEVEL 4 STLMLC STLMLC [id number] [facility] 2024-03-31 00:00:00 2024-03-31 00:00:00 (TEL) STLMLC STLMLC [id number] [facility] 2024-03-25 00:00:00 2024-03-25 00:00:00 (TEL) STLMLC STLMLC [id number] [facility] 2024-02-20 00:00:00 2024-02-20 00:00:00 (TEL) STLMLC STLMLC [id number] [facility] 2024-01-30 00:00:00 2024-01-30 00:00:00 OFFICE VISIT ESTAB PT LEVEL 4 STLMLC STLMLC [id number] [facility] 2023-12-26 00:00:00 2023-12-26 00:00:00 (TEL) STLMLC STLMLC [id number] [facility] 2023-12-18 00:00:00 2023-12-18 00:00:00 (TEL) STLMLC STLMLC [id number] [facility] 2023-11-20 00:00:00 2023-11-20 00:00:00 (TEL) STLMLC STLMLC [id number] [facility] 2023-10-16 00:00:00 2023-10-16 00:00:00 (TEL) STLMLC STLMLC [id number] [facility] 2023-10-12 00:00:00 2023-10-12 00:00:00 OFFICE VISIT ESTAB PT LEVEL 4 STLMLC STLMLC [id number] [facility] 2023-09-24 00:00:00 2023-09-24 00:00:00 (TEL) STLMLC STLMLC [id number] [facility] 2023-09-07 00:00:00 2023-09-07 00:00:00 (TEL) STLMLC STLMLC [id number] [facility] 2023-08-30 00:00:00 2023-08-30 00:00:00 (TEL) STLMLC STLMLC [id number] [facility] 2023-08-23 00:00:00 2023-08-23 00:00:00 (TEL) STLMLC STLMLC [id number] [facility] 2023-07-25 00:00:00 2023-07-25 00:00:00 (TEL) STLMLC STLMLC [id number] [facility] 2023-07-11 00:00:00 2023-07-11 00:00:00 (TEL) STLMLC STLMLC [id number] [facility] 2023-07-11 00:00:00 2023-07-11 00:00:00 OFFICE VISIT ESTAB PT LEVEL 4 STLMLC STLMLC [id number] [facility] 2023-07-02 00:00:00 2023-07-02 00:00:00 (TEL) STLMLC STLMLC [id number] [facility] 2023-06-11 18:00:00 2023-06-11 19:00:00 Joshua Talavera 2.16.840. [id number]. [id number] 2023-06-11 00:00:00 2023-06-11 00:00:00 (TEL) STLMLC STLMLC [id number] [facility] 2023-06-04 00:00:00 2023-06-04 00:00:00 (TEL) STLMLC STLMLC [id number] [facility] 2023-05-31 00:00:00 2023-05-31 00:00:00 (TEL) STLMLC STLMLC [id number] [facility] 2023-05-30 00:00:00 2023-05-30 00:00:00 Outpatient GC_GCBZW_Ka diyala_S PRIV PRIV [id number] [facility] 2023-05-30 00:00:00 2023-05-30 00:00:00 Outpatient GC_GCBZW_Ka diyala_S PRIV PRIV [id number] [facility] 2023-05-28 00:00:00 2023-05-28 00:00:00 Outpatient GC_GCBZW_Ka diyala_S PRIV PRIV [id number] [facility] 2023-05-28 00:00:00 2023-05-28 00:00:00 OFFICE VISIT ESTAB PT LEVEL 4 STLMLC STLC [id number] [facility] 2023-05-22 00:00:00 2023-05-22 00:00:00 (TEL) STLMLC STLMLC [id number] [facility] 2023-05-15 00:00:00 2023-05-15 00:00:00 (TEL) STLMLC STLMLC [id number] [facility] 2023-05-01 00:00:00 2023-05-01 00:00:00 (TEL) STLMLC STLMLC [id number] [facility] 2023-04-06 00:00:00 2023-04-06 00:00:00 OFFICE VISIT ESTAB PT LEVEL 4 STLMLC STLMLC [id number] [facility] 2023-04-06 00:00:00 2023-04-06 00:00:00 (TEL) STLMLC STLMLC [id number] [facility] 2023-03-27 00:00:00 2023-03-27 00:00:00 Orders Only Doctor Unassigned, [place] [facility] [id number] [id number] [id number] [id number] [facility] 2023-02-21 00:00:00 2023-02-21 00:00:00 (TEL) STLMLC STLMLC [id number] [facility] 2023-02-07 00:00:00 2023-02-07 00:00:00 OFFICE VISIT ESTAB PT LEVEL 4 STLMLC STLMLC [id number] [facility] 2023-01-30 00:00:00 2023-01-30 00:00:00 (TEL) STLMLC STLMLC [id number] [facility] 2023-01-29 00:00:00 2023-01-29 00:00:00 OFFICE VISIT ESTAB PT LEVEL 3 STLMLC STLMLC [id number] [facility] 2023-01-23 00:00:00 2023-01-23 00:00:00 (TEL) STLMLC STLMLC [id number] [facility] 2023-01-19 00:00:00 2023-01-19 00:00:00 (TEL) STLMLC STLMLC [id number] [facility] 2022-12-08 00:00:00 2022-12-08 00:00:00 (TEL) STLMLC STLMLC [id number] [facility] 2022-12-06 00:00:00 2022-12-06 00:00:00 (TEL) STLMLC STLMLC [id number] [facility] 2022-11-28 00:00:00 2022-11-28 00:00:00 (TEL) STLMLC STLMLC [id number] [facility] 2022-11-24 00:00:00 2022-11-24 00:00:00 OFFICE VISIT ESTAB PT LEVEL 4 STLMLC STLMLC [id number] [facility] 2022-11-13 00:00:00 2022-11-13 00:00:00 (TEL) STLMLC STLMLC [id number] [facility] 2022-11-08 00:00:00 2022-11-08 00:00:00 OFFICE VISIT EST PT LEVEL 3 STLMLC STLMLC [id number] [facility] 2022-11-06 00:00:00 2022-11-06 00:00:00 (TEL) STLMLC STLMLC [id number] [facility] 2022-09-04 00:00:00 2022-09-04 00:00:00 OFFICE VISIT ESTAB PT LEVEL 4 STLMLC STLMLC [id number] [facility] 2022-08-23 00:00:00 2022-08-23 00:00:00 OFFICE VISIT EST PT LEVEL 3 STLMLC STLMLC [id number] [facility] 2022-08-02 00:00:00 2022-08-02 00:00:00 OFFICE VISIT EST PT LEVEL 3 STLMLC STLMLC [id number] [facility] 2022-07-05 00:00:00 2022-07-05 00:00:00 OFFICE VISIT NEW PT LEVEL 3 STLMLC STLMLC [id number] [facility] 2022-06-22 00:00:00 2022-06-22 00:00:00 (TEL) STLMLC STLMLC [id number] [facility] 2022-06-20 00:00:00 2022-06-20 00:00:00 (TEL) STLMLC STLMLC [id number] [facility] 2022-06-15 09:30:00 2022-06-15 09:30:00 Outpatient SHILPA CARLSON [facility] [id number] [facility] 2022-05-31 00:00:00 2022-05-31 00:00:00 (TEL) STLMLC STLMLC [id number] [facility] 2022-05-30 00:00:00 2022-05-30 00:00:00 OFFICE VISIT ESTAB PT LEVEL 4 STLMLC STLMLC [id number] [facility] 2022-05-22 00:00:00 2022-05-22 00:00:00 (TEL) STLMLC STLMLC [id number] [facility] 2022-05-06 10:01:00 2022-05-06 10:01:00 Outpatient Adams_R DMG DMG [id number] [facility] 2022-05-06 00:00:00 2022-05-06 00:00:00 Outpatient Adams_R DMG DM [id number] [facility] 2022-03-29 00:00:00 2022-03-29 00:00:00 (TEL) STLMLC STLMLC [id number] [facility] 2022-03-21 00:00:00 2022-03-21 00:00:00 (TEL) STLMLC STLMLC [id number] [facility] 2022-03-16 00:00:00 2022-03-16 00:00:00 (TEL) STLMLC STLMLC [id number] [facility] 2022-03-09 00:00:00 2022-03-09 00:00:00 (TEL) STLMLC STLMLC [id number] [facility] 2022-03-02 00:00:00 2022-03-02 00:00:00 (TEL) STLMLC STLMLC [id number] [facility] 2022-02-24 00:00:00 2022-02-24 00:00:00 OFFICE VISIT ESTAB PT LEVEL 4 STLMLC STLMLC [id number] [facility] 2022-02-13 00:00:00 2022-02-13 00:00:00 (TEL) STLMLC STLMLC [id number] [facility] 2022-01-18 00:00:00 2022-01-18 00:00:00 (TEL) STLMLC STLMLC [id number] [facility] 2022-01-16 00:00:00 2022-01-16 00:00:00 OFFICE VISIT EST PT LEVEL 3 STLMLC STLMLC [id number] [facility] 2021-12-16 00:00:00 2021-12-16 00:00:00 (TEL) STLMLC STLMLC [id number] [facility] 2021-12-13 00:00:00 2021-12-13 00:00:00 OL DIG E/M SVC 11-20 MIN STLMLC STLMLC [id number] [facility] 2021-12-12 00:00:00 2021-12-12 00:00:00 (TEL) STLMLC STLMLC [id number] [facility] 2021-11-23 00:00:00 2021-11-23 00:00:00 (TEL) STLMLC STLMLC [id number] [facility] 2021-11-16 00:00:00 2021-11-16 00:00:00 OL DIG E/M SVC 11-20 MIN STLMLC STLMLC [id number] [facility] 2021-10-31 09:57:00 2021-10-31 09:57:00 Outpatient Adams_R DMG DMG [id number] [facility] 2021-10-18 12:00:00 2021-10-18 12:00:00 Outpatient DMG DMG [id number] [facility] 2021-09-09 00:00:00 2021-09-09 00:00:00 OL DIG E/M SVC 21+ MIN STLMLC STLMLC [id number] [facility] 2021-08-29 11:02:00 2021-08-29 11:02:00 Outpatient DMG DMG [id number] [facility] 2021-08-18 00:00:00 2021-08-18 00:00:00 OFFICE VISIT EST PT LEVEL 3 STLMLC STLMLC [id number] [facility] 2021-08-18 00:00:00 2021-08-18 00:00:00 (TEL) STLMLC STLMLC [id number] [facility] 2021-08-18 00:00:00 2021-08-18 00:00:00 (TEL) STLMLC STLMLC [id number] [facility] 2021-08-15 00:00:00 2021-08-15 00:00:00 (TEL) STLMLC STLMLC [id number] [facility] 2021-07-08 00:00:00 2021-07-08 00:00:00 (TEL) STLMLC STLMLC [id number] [facility] 2021-06-21 00:00:00 2021-06-21 00:00:00 Outpatient STLMLC STLMLC [id number] [facility] 2021-06-15 09:22:29 2021-06-15 09:49:00 [facility] [id number] 350.1.13.10 [id number] [id number] [facility] 2021-06-15 09:00:00 2021-06-15 09:00:00 Outpatient SHILPA CARLSON [facility] [id number] [facility] 2021-06-10 00:00:00 2021-06-10 00:00:00 Outpatient STLMLC STLMLC [id number] [facility] 2021-06-10 00:00:00 2021-06-10 00:00:00 Outpatient STLMLC STLMLC [id number] [facility] 2021-05-11 08:42:39 2021-05-11 23:59:00 Hospital Encounter [facility] [id number] 350.1.13.10 4.2.7.2.686 [id number] [facility] 2021-05-11 00:00:00 2021-05-11 00:00:00 Outpatient SHILPA CARLSON [facility] [id number] [facility] 2021-05-11 00:00:00 2021-05-11 00:00:00 Orders Only Doctor Unassigned, [place] [facility] 1.2840.114 350.1.13.10 4.2.7.2.686 [id number] [facility] 2021-03-23 00:00:00 2021-03-23 00:00:00 Outpatient STLMLC STLMLC [id number] [facility] 2021-01-26 00:00:00 2021-01-26 00:00:00 Outpatient STLMLC STLMLC [id number] [facility] 2021-01-24 00:00:00 2021-01-24 00:00:00 Orders Only Doctor Unassigned, [place] [facility] 1.2840.114 350.1.13.10 4.2.7.2.686 [id number] [facility] 2021-01-19 00:00:00 2021-01-19 00:00:00 Orders Only Doctor Unassigned, [place] [facility] 1.2840.114 350.1.13.10 4.2.7.2.686 [id number] [facility] 2021-01-13 08:35:32 2021-01-13 09:20:50 Office Visit Shilpa Bourgeois [facility] 1.2840.114 350.1.13.10 4.2.7.2.686 [id number] [facility] 2021-01-13 09:00:00 2021-01-13 09:00:00 Outpatient R SHILPA BOURGEOIS [facility] [id number] [facility] 2021-01-13 00:00:00 2021-01-13 00:00:00 Orders Only Doctor Unassigned, [place] [facility] 1.2840.114 350.1.13.10 4.2.7.2.686 [id number] [facility] 2021-01-13 00:00:00 2021-01-13 00:00:00 Letter (Out) Doctor Unassigned, [place] [facility] 1.2.840.114 350.1.13.10 4.2.7.2.686 [id number] [facility] 2021-01-13 00:00:00 2021-01-13 00:00:00 Letter (Out) Doctor Unassigned, [place] [facility] 1.2.840.114 350.1.13.10 4.2.7.2.686 [id number] [facility] 2021-01-04 00:00:00 2021-01-04 00:00:00 Case Management Shilpa Bourgeois [facility] 1.2.840.114 350.1.13.10 4.2.7.2.686 [id number] [facility] 2021-01-03 00:00:00 2021-01-03 00:00:00 Outpatient STLMLC STLMLC [id number] [facility] 2020-12-21 00:00:00 2020-12-21 00:00:00 Outpatient STLMLC STLMLC [id number] [facility] 2020-11-16 00:00:00 2020-11-16 00:00:00 Outpatient STLMLC STLMLC [id number] [facility] 2020-11-10 00:00:00 2020-11-10 00:00:00 Outpatient STLMLC STLMLC [id number] [facility] 2020-10-12 00:00:00 2020-10-12 00:00:00 Outpatient STLMLC STLMLC [id number] [facility] 2020-10-11 00:00:00 2020-10-11 00:00:00 Outpatient STLMLC STLMLC [id number] [facility] 2020-09-30 00:00:00 2020-09-30 00:00:00 Outpatient STLMLC STLMLC [id number] [facility] 2020-09-29 00:00:00 2020-09-29 00:00:00 Outpatient STLMLC STLMLC [id number] [facility] 2020-09-14 00:00:00 2020-09-14 00:00:00 Outpatient STLMLC STLMLC [id number] [facility] 2020-09-14 00:00:00 2020-09-14 00:00:00 Outpatient STLMLC STLMLC [id number] [facility] 2020-09-14 00:00:00 2020-09-14 00:00:00 Outpatient STLMLC STLMLC [id number] [facility] 2020-09-13 00:00:00 2020-09-13 00:00:00 Outpatient STLMLC STLMLC [id number] [facility] 2020-06-24 09:50:00 2020-06-24 09:50:00 Outpatient [facility] [id number] [facility] 2020-06-09 16:32:00 2020-06-09 16:32:00 Outpatient [facility] [id number] [facility] 2020-05-28 11:43:00 2020-05-28 11:43:00 [facility] [id number] [facility] 2020-04-13 09:20:00 2020-04-13 09:20:00 [facility] [id number] [facility] 2020-03-10 16:01:00 2020-03-10 16:01:00 Outpatient [facility] [id number] [facility] 2020-01-25 13:49:00 2020-01-25 13:49:00 [facility] [address] [facility] [address] [facility] [id number] [facility] 2020-01-02 09:45:00 2020-01-02 09:45:[address] [facility] [address] [facility] [address] [facility] [id number] [facility] 2019-12-02 09:15:00 2019-12-02 09:15:[address] [facility] [address] [facility] [address] [facility] [id number] [facility] 2019-11-17 14:50:00 2019-11-17 14:50:[address] [facility] [address] [facility] [address] [facility] [id number] [facility] 2019-09-26 10:00:00 2019-09-26 10:00:[address] [facility] [address] [facility] [id number] [facility] 2019-07-22 11:05:00 2019-07-22 11:05:[address] [facility] [address] [facility] [id number] [facility] 2019-06-30 10:20:00 2019-06-30 10:20:[address] [facility] [address] [facility] [id number] [facility] 2019-04-17 20:26:00 2019-04-17 20:26:[address] [facility] [address] [facility] [facility] [id number] [facility] 2019-04-16 15:58:00 2019-04-16 15:58:[address] [facility] [address] [facility] [id number] [facility] 2019-03-03 13:58:00 2019-03-03 13:58:[address] [facility] [address] [facility] [id number] [facility] 2019-01-17 15:47:00 2019-01-17 15:47:[address] [facility] [id number] [facility] 2019-01-17 11:15:00 2019-01-17 11:15:[address] [facility] [id number] [facility] 2019-01-10 01:41:00 2019-01-10 01:41:[address] [facility] [id number] [facility] 2019-01-08 10:30:00 2019-01-08 10:30:[address] [facility] [id number] [facility] 2018-12-26 14:36:00 2018-12-26 14:36:[address] [facility] [id number] [facility] 2018-12-25 11:15:00 2018-12-25 11:15:[address] [facility] [id number] [facility] 2018-11-12 09:15:00 2018-11-12 09:15:[address] [facility] [id number] [facility] 2018-10-09 08:00:00 2018-10-09 08:00:[address] [facility] [id number] [facility] 2018-07-30 15:53:00 2018-07-30 15:53:[address] [facility] [id number] [facility] 2018-07-29 09:10:00 2018-07-29 09:10:00 [facility] [id number] [facility] 2018-05-28 11:00:00 2018-05-28 11:00:[address] [facility] [id number] [facility] 2018-04-10 08:24:00 2018-04-10 08:24:[address] [facility] [id number] [facility] 2018-04-02 09:00:00 2018-04-02 09:00:00 Outpatient [facility] [id number] [facility] 2018-04-01 14:33:00 2018-04-01 14:33:00 Outpatient [facility] [id number] [facility] 2018-03-21 08:55:00 2018-03-21 08:55:00 Outpatient [facility] [id number] [facility] 2018-03-19 09:30:00 2018-03-19 09:30:00 Outpatient [facility] [id number] [facility] Results Test Description Test Time Test Comments Results Result Co mments Source CULTURE, [id number] 00:00:00* Test Item Value Reference Range Interpretation Comme nts CULTURE, URINE (test code = 630-4) SPECIMEN NUMBER: [id number] CBC W/AUTO [id number] 00:00:00* Test Item Value Reference Range Interpretation Comme nts NUCLEATED RBCS (test code = 83549-7) 0.0 /100 WBC'S See_Comment [Automated messa ge] The system which generated this result transmitted reference range: 0.0 /100 WBC'S. The reference range was not used to interpret this result as normal/abnormal. ABSOLUTE EOSINOPHILS (test code = 48470-1) 0.27 K/UL See_Comment [Automated messa ge] The system which generated this result transmitted reference range: 0.00-0.50 K/UL. The reference range was not used to interpret this result as normal/abnormal. ABSOLUTE LYMPHOCYTES (test code = 54557-6) 1.99 K/UL See_Comment [Automated messa ge] The system which generated this result transmitted reference range: 1.00-4.00 K/UL. The reference range was not used to interpret this result as normal/abnormal. ABSOLUTE MONOCYTES (test code = 15872-8) 0.75 K/UL See_Comment [Automated messa ge] The system which generated this result transmitted reference range: 0.20-1.00 K/UL. The reference range was not used to interpret this result as normal/abnormal. ABSOLUTE NEUTROPHILS (test code = 39614-4) 6.41 K/UL See_Comment [Automated messa ge] The system which generated this result transmitted reference range: 1.50-7.50 K/UL. The reference range was not used to interpret this result as normal/abnormal. BASOPHILS (test code = 43303-4) 0.5 % EOSINOPHILS (test code = 79801-8) 2.8 % HEMATOCRIT (test code = 81649-7) 33.8 % See_Comment L [Automated messa ge] [...] result as normal/abnormal. LYMPHOCYTES (test code = 51111-9) 21.0 % MCH (test code = 29087-1) 29.7 PG See_Comment [Automated messa ge] The system which generated this result transmitted reference range: 25.0-33.0 PG. The reference range was not used to interpret this result as normal/abnormal. MCHC (test code = 37274-9) 32.0 G/DL See_Comment [Automated messa ge] The system which generated this result transmitted reference range: 31.0-36.0 G/DL. The reference range was not used to interpret this result as normal/abnormal. MCV (test code = 59280-5) 92.9 fL See_Comment [Automated messa ge] The system which generated this result transmitted reference range: 80.0-99.0 fL. The reference range was not used to interpret this result as normal/abnormal. MONOCYTES (test code = 47891-6) 7.9 % NEUTROPHILS (test code = 22822-2) 67.6 % PLATELET COUNT (test code = 03829-4) 231 K/UL See_Comment [Automated messa ge] The system which generated this result transmitted reference range: 130-400 K/UL. The reference range was not used to interpret this result as normal/abnormal. RBC (test code = 39687-9) 3.64 M/UL See_Comment L [Automated messa ge] The system which generated this result transmitted reference range: 3.80-5.40 M/UL. The reference range was not used to interpret this result as normal/abnormal. RDW (test code = 56514-9) 13.7 % See_Comment [Automated messa ge] The system which generated this result transmitted reference range: 11.5-15.0 %. The reference range was not used to interpret this result as normal/abnormal. WBC (test code = 55413-9) 9.5 K/UL See_Comment [Automated messa ge] The system which generated this result transmitted reference range: 3.5-11.0 K/UL. The reference range was not used to interpret this result as normal/abnormal. CBC W/AUTO [id number] 00:00:00* Test Item Value Reference Range Interpretation Comme nts NUCLEATED RBCS (test code = 64657-8) 0.0 /100 WBC'S See_Comment [Automated messa ge] The system which generated this result transmitted reference range: 0.0 /100 WBC'S. The reference range was not used to interpret this result as normal/abnormal. ABSOLUTE EOSINOPHILS (test code = 61119-0) 0.32 K/UL See_Comment [Automated messa ge] The system which generated this result transmitted reference range: 0.00-0.50 K/UL. The reference range was not used to interpret this result as normal/abnormal. ABSOLUTE LYMPHOCYTES (test code = 56137-8) 2.60 K/UL See_Comment [Automated messa ge] The system which generated this result transmitted reference range: 1.00-4.00 K/UL. The reference range was not used to interpret this result as normal/abnormal. ABSOLUTE MONOCYTES (test code = 31436-5) 0.60 K/UL See_Comment [Automated messa ge] The system which generated this result transmitted reference range: 0.20-1.00 K/UL. The reference range was not used to interpret this result as normal/abnormal. ABSOLUTE NEUTROPHILS (test code = 14122-7) 6.76 K/UL See_Comment [Automated messa ge] The system which generated this result transmitted reference range: 1.50-7.50 K/UL. The reference range was not used to interpret this result as normal/abnormal. BASOPHILS (test code = 40632-4) 0.9 % EOSINOPHILS (test code = 83491-6) 3.1 % HEMATOCRIT (test code = 95068-7) 32.8 % See_Comment L [Automated messa ge] [...] result as normal/abnormal. LYMPHOCYTES (test code = 11355-7) 25.0 % MCH (test code = 46715-7) 29.6 PG See_Comment [Automated messa ge] The system which generated this result transmitted reference range: 25.0-33.0 PG. The reference range was not used to interpret this result as normal/abnormal. MCHC (test code = 12726-5) 32.6 G/DL See_Comment [Automated messa ge] The system which generated this result transmitted reference range: 31.0-36.0 G/DL. The reference range was not used to interpret this result as normal/abnormal. MCV (test code = 61160-3) 90.9 fL See_Comment [Automated messa ge] The system which generated this result transmitted reference range: 80.0-99.0 fL. The reference range was not used to interpret this result as normal/abnormal. MONOCYTES (test code = 17024-7) 5.8 % NEUTROPHILS (test code = 75694-8) 64.9 % PLATELET COUNT (test code = 64382-6) 208 K/UL See_Comment [Automated messa ge] The system which generated this result transmitted reference range: 130-400 K/UL. The reference range was not used to interpret this result as normal/abnormal. RBC (test code = 41037-8) 3.61 M/UL See_Comment L [Automated messa ge] The system which generated this result transmitted reference range: 3.80-5.40 M/UL. The reference range was not used to interpret this result as normal/abnormal. RDW (test code = 09362-5) 13.0 % See_Comment [Automated [employer]] The system which generated this result transmitted reference range: 11.5-15.0 %. The reference range was not used to interpret this result as normal/abnormal. WBC (test code = 32790-3) 10.4 K/UL See_Comment [Automated [employer]] The system which generated this result transmitted reference range: 3.5-11.0 K/UL. The reference range was not used to interpret this result as normal/abnormal. US PELVIS COMPLETE WITH [id number] 23:04:561. ?Simple cyst in the left ovary [...] colorDoppler evaluation of the pelvis was performed. Business Services Director images wereobtained for the record. COMPARISON: None [...] colorDoppler evaluation of the pelvis was performed. Business Services Director images wereobtained for the record. COMPARISON: NoneFINDINGS:STATEMENT: [...] reviewed this study and agree with theabove report.[facility] KAILASH BILAT W/CAD3D SCR KAILASH BILAT W/CADSARS-COV 2 AntigenSARS-COV 2 Antigen
--- NOTE | 2024-07-24 08:37 | EDPHYS ---
Physician Documentation [facility] Name: Sergio Otero Age: 63 yrs Sex: Female : 1960 Arrival Date: 07/24/2024 Time: 08:00 Bed 14 Private MD: ED Physician Jairon Zepeda HPI: 07/24 08:34 This 63 yrs old Black Female presents to ER via Ambulatory with complaints of rn cellulitis. 08:34 The patient presents with cellulitis of the abdomen. Onset: The symptoms/episode rn began/occurred 2 day(s) ago. Associated signs and symptoms: Pertinent negatives: fever. Severity of symptoms: At their worst the symptoms were mild, in the emergency department the symptoms are unchanged. Patient reports sore to lower abdomen, has had it multiple times in the past, usually antibiotics knocks it out. Has never required incision and drainage. Denies fever or chills. No internal abdominal pain, states discomfort is only at skin surface.. Historical: - Allergies: 08:12 No Known Drug Allergies; ll1 - PMHx: 08:12 Gout; Hyperlipidemia; Hypertension; kidney function is low; Sickle Cell Trait; ll1 - PSHx: 08:12 section; foot; Shoulder (Gout); ll1 - Immunization history:: Adult Immunizations up to date. - Infectious Disease History:: Denies. - Social history:: Smoking status: Patient denies any tobacco usage or history of. - Family history:: not pertinent. - Hospitalizations: : No recent hospitalization is reported. ROS: 08:34 Constitutional: Negative for fever, chills, and weight loss, Skin: Positive for open access rn to left lower abdomen Exam: 08:34 Constitutional: This is a well developed, well nourished patient who is awake, alert, rn and in no acute distress. Abdomen/GI: Soft, nontender. Left lower abdomen with 2 cm of induration, no fluctuance, shallow ulceration with foul smell. No evidence of abscess at this time. Vital Signs: 08:20 BP 149 / 76; Pulse 74; Resp 17; Temp 97.2; Pulse Ox 100% ; Weight 108.86 kg; Height 5 ll1 ft. 6 in. ; Pain 8/10; 08:20 Body Mass Index 38.74 (108.86 kg, 167.64 cm) ll1 08:20 Pain Scale: Adult ll1 MDM: 08:12 Patient medically screened. rn 08:34 Differential diagnosis: cellulitis. Data reviewed: vital signs, nurses notes, and as a rn result, I will discharge patient. Counseling: I had a detailed discussion with the patient and/or guardian regarding the historical points, exam findings, and any diagnostic results supporting the discharge/admit diagnosis, the need for outpatient follow up, to return to the emergency department if symptoms worsen or persist or if there are any questions or concerns that arise at home. Special discussion: I discussed with the patient/guardian in detail that at this point there is no indication for admission to the hospital. It is understood, however, that if the symptoms persist or worsen the patient needs to return immediately for re-evaluation. ED course: No evidence of abscess at this time. No indication for incision and drainage. Will discharge home with antibiotics and given return precautions.. Administered Medications: No medications were administered Disposition Summary: 07/24/24 08:37 Discharge Ordered Notes: Location: Home rn Problem: new rn Symptoms: have improved rn Condition: Stable rn Diagnosis - Cellulitis of abdominal wall rn Followup: rn - With: Private Physician - When: As needed - Reason: Recheck today's complaints, Re-evaluation by your physician Discharge Instructions: - Discharge Summary Sheet rn - Cellulitis, Adult rn Forms: - Medication Reconciliation Form rn - Antibiotic internal consultant - Prescription Opioid Use rn - Patient Portal Instructions rn - Leadership Thank You Letter rn Prescriptions: - Bactrim DS 800-160 mg Oral Tablet - take 1 tablet ORAL route every 12 hours for 10 days; 20 tablet; Refills: 0, rn Product Selection Permitted Signatures: Jairon Zepeda MD MD rn Lewis, Lynsay, RN RN [facility]
--- NOTE | 2024-07-24 08:37 | ER ---
Nurse's Notes [facility] Name: Sergio Otero Age: 63 yrs Sex: Female : 1960 Arrival Date: 07/24/2024 Time: 08:00 Bed 14 Private MD: Diagnosis: Cellulitis of abdominal wall Presentation: 07/24 08:15 Coronavirus screen: Client denies travel out of the [place] in the last 14 days. At this ll1 time, the client does not indicate any symptoms associated with coronavirus-19. Ebola Screen: Patient denies travel to an Ebola-affected area in the 21 days before illness onset. Initial Sepsis Screen: Does the patient meet any 2 criteria? No. Patient's initial sepsis screen is negative. Does the patient have a suspected source of infection? No. Patient's initial sepsis screen is negative. Risk Assessment: Do you want to hurt yourself or someone else? Patient reports no desire to harm self or others. 08:15 Method Of Arrival: Ambulatory ll1 08:15 Acuity: SIMONE 4 ll1 08:20 Chief complaint: Patient states: LLQ burning pain. no fever. ll1 08:44 Onset of symptoms was July 22, 2024. 1 Triage Assessment: 08:20 General: Appears uncomfortable, Behavior is calm, cooperative, appropriate for age. ll1 Pain: Complains of pain in abdomen Pain currently is 8 out of 10 on a pain scale. Quality of pain is described as aching. Neuro: No deficits noted. Cardiovascular: No deficits noted. Derm: redness LLQ, no drainage or fever Reports burning. Historical: - Allergies: 08:12 No Known Drug Allergies; ll1 - PMHx: 08:12 Gout; Hyperlipidemia; Hypertension; kidney function is low; Sickle Cell Trait; ll1 - PSHx: 08:12 section; foot; Shoulder (Gout); ll1 - Immunization history:: Adult Immunizations up to date. - Infectious Disease History:: Denies. - Social history:: Smoking status: Patient denies any tobacco usage or history of. - Family history:: not pertinent. - Hospitalizations: : No recent hospitalization is reported. Screenin:13 [facility] ED Fall Risk Assessment (Adult) History of falling in the last 3 months, ll1 including since admission No falls in past 3 months (0 pts) Confusion or Disorientation No (0 pts) Intoxicated or Sedated No (0 pts) Impaired Gait No (0 pts) Mobility Assist Device Used No (0 pt) Altered Elimination No (0 pt) Score/Fall Risk Level 0 - 2 = Low Risk Maintained a safe environment, Hourly rounding (assess needs \T\ fall precautionary measures) done. Abuse screen: Denies threats or abuse. Nutritional screening: No deficits noted. Tuberculosis screening: No symptoms or risk factors identified. Vital Signs: 08:20 BP 149 / 76; Pulse 74; Resp 17; Temp 97.2; Pulse Ox 100% ; Weight 108.86 kg; Height 5 ll1 ft. 6 in. ; Pain 8/10; 08:20 Body Mass Index 38.74 (108.86 kg, 167.64 cm) ll1 08:20 Pain Scale: Adult ll1 ED Course: 08:06 Patient arrived in ED. mg5 08:12 Jairon Zepeda MD is Attending Physician. rn 08:12 Arm band placed on Patient placed in an exam room, on a stretcher. 1 08:13 Feroz Bowen, AMBER is Primary Nurse. ll1 08:13 Patient has correct armband on for positive identification. Bed in low position. ll1 08:15 Triage completed. ll1 08:21 No provider procedures requiring assistance completed. Patient did not have IV access ll1 during this emergency room visit. 08:43 Provided Education on: finish all prescribed antibiotics. ll1 Administered Medications: No medications were administered Medication: 08:21 VIS not applicable for this client. ll1 Outcome: 08:37 Discharge ordered by . rn 08:43 Discharged to home ambulatory, 1 08:43 Condition: stable 08:43 Discharge instructions given to patient, Instructed on discharge instructions, follow up and referral plans. medication usage, Demonstrated understanding of instructions, follow-up care, medications, Prescriptions given X 1, 08:44 Patient left the ED. 1 Signatures: Jairon Zepeda MD MD rn Lewis, Lynsay, RN RN ll1 Karyn Gómez mg5
[2024-07-24 21:16] VITALS: BP 149/76; TEMP 97.2; O2SAT 100
== END 2024-07-24 08:44 | disposition home or self-care (01) ==
LOC: ER 08:00
DX: L03.311 Cellulitis of abdominal wall (principal)
CPT/HCPCS: 99283

== ENCOUNTER 2024-08-06 15:37 | Inpatient (IN) | payer MEDICARE ==
--- OUTSIDE RECORDS SUMMARY | 2024-08-06 15:41 | XMS REPORT | Continuity of Care Document ---
Author Name Unknown Address [address] [facility] [address] [place] [id number] [facility] Address [address] [facility] [address] [place] [address] Care Team Providers Care Blocking Machine Operator Name Role Phone Sudha Traore Primary Care Physician [phone] Karlee Colvin Attending Clinician Unavailable Sudha Traore Attending Clinician Unavailable Azar Watson Attending Clinician Unavailable Marissa Rodriguez Attending Clinician Unavailable eGrmaine Laboy Attending Clinician [phone] Anabelle Malik Attending Clinician Madonna Talavera Attending Clinician [email or web address] Attending Clinician Unavaila augustin Doctor Unassigned, [place] Attending Clinician U SHILPA Mad[place] Attending Clinician Unavailable Taj_Ranjit Attending Clinician Unavailable Shilpa Bourgeois PA-C Attending Clinician [phone] [email or web address] Admitting Clinician Unavaila augustin Adams_R Admitting Clinician Unavailable Payers Payer Name Policy Type Policy Number Effective Date Expirati on Date Source [employer] (MEDICARE REPLACEMENT HMO) [id number] 2021 00:00:00 [employer] Medicare Replace C1 [id number] [facility] [employer] Medicare Replace C1 [id number] [facility] [employer] Medicare Replace C1 [id number] [facility] [employer] Medicare Replace C1 [id number] [facility] [employer] Medicare Replace C1 [id number] [facility] Problems Condition Name Condition Details Condition Category Status Onset Date Resolution Date Last Treatment Date Treating Clinician Comments Source Essential hypertensi on, benign Essential hypertensi on, benign Disease Active 04-08 00:00: 00 [facility] Hyperlipid emia Hyperlipid emia Disease Active 04-08 00:00: 00 [facility] Venous (periphera l) insufficie ncy Venous (periphera l) insufficie ncy Disease Active 05-12 00:00: 00 Overview: Formattin g of this note might be different from the original. 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 Disease Active 12-11 00:00: 00 [facility] [id number] Family history of heart disease Problem [facility] Mixed hyperlipid emia Hyperlipid emia, mixed Problem [facility] Polyp colon Polyp of colon, unspecifie d part of colon, unspecifie d type Problem [facility] [id number] Generalize d weakness Problem [facility] [id number] Polyarthra lgia Problem [facility] Sickle cell trait Sickle-mateo l trait Problem [facility] 82174976 Hyperurice davy Problem [facility] Pulmonary hypertensi on Pulmonary hypertensi on Problem [facility] [id number] Diverticul osis large intestine w/o perforatio n or abscess w/o bleeding Problem [facility] [id number] Pain in left foot Problem [facility] Iron deficiency anemia due to chronic blood loss Iron deficiency anemia due to chronic blood loss Problem [facility] [id number] Diverticul osis Problem [facility] Heel pain Heel pain Problem [facility] Glaucoma Glaucoma of both eyes, unspecifie d glaucoma type Problem [facility] [id number] Pain in left leg Problem [facility] [id number] Pain in right leg Problem [facility] [id number] Tiredness Problem [facility] [id number] Legal blindness Problem [facility] 242755554 Acute midline low back pain with left-sided sciatica Problem [facility] 845701716 Acute gout of right foot, unspecifie d cause Problem [facility] Gout Gout Problem [facility] [id number] Urinary frequency Problem [facility] 196343820 Depression with anxiety Problem [facility] 251035069 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, unspecifie d type Problem [facility] Blindness AND/OR vision impairment level (disorder) Blindness and low vision Problem [facility] Chronic kidney disease stage 3A Stage 3a chronic kidney disease Problem [facility] [id number] Left adrenal mass Problem [facility] 812813321 History of colon polyps Problem [facility] [id number] Gastroesop hageal reflux disease, unspecifie d whether esophagiti s present Problem [facility] 94476349 Other chronic pain Problem [facility] 903731715 Injury of left acromiocla vicular joint, subsequent encounter Problem [facility] [id number] Pain, joint, shoulder, right Problem [facility] 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 Problem [facility] [id number] Mild intermitte nt asthma without complicati on Problem [facility] Chronic kidney disease stage 3B (disorder) Stage 3b chronic kidney disease (CKD) Problem [facility] 23678711 Pain in right foot Problem [facility] 525744147 Memory changes Problem [facility] [id number] Pain, joint, ankle, right Problem [facility] 589682037 Pain in left ankle and joints of left foot Problem [facility] 445486414 Anemia in chronic kidney disease Problem [facility] Varicose vein Varicose vein Problem [facility] 369647303 Morbid (severe) obesity due to excess calories Problem [facility] Chronic renal disease Chronic kidney disease, unspecifie d CKD stage Problem [facility] Essential hypertensi on Essential hypertensi on Problem [facility] 896084762 Morbid obesity Problem [facility] 84926143 Iron deficiency anemia, unspecifie d iron deficiency anemia type Problem [facility] 992980615 Rash and nonspecifi c skin eruption Problem [facility] 71477636 Varicose veins of both lower extremitie s, unspecifie d whether complicate d Problem [facility] Obesity Obesity Problem [facility] Allergies, Adverse Reactions, Alerts Allergy Name Allergy Type Status Severity Reaction(s) Onset Date Inactive Date Treating Clinician Comments Source NO KNOWN ALLERGIE S Drug Class Active [facility] Social History Social Habit Start Date Stop Date Quantity Comments Source Exposure to SARS-CoV-2 (event) Not sure [facility] History of Tobacco Use [facility] Sex Assigned At [facility] Alcohol intake 2021-06-15 00:00:00 2021-06-15 00:00:00 Current non-drinker of alcohol (finding) [facility] Tobacco use and exposure 2010-12-11 00:00:00 2010-12-11 00:00:00 Smokeless tobacco non-user [facility] Smoking Status Start Date Stop Date Source Never Smoker [facility] Medications Ordered Medication Name Filled Medication Name Start Date Stop Date Current Medication? Ordering Clinician Indication Dosage Frequency Signature (SIG) Comments Components Source Rosuvastati n Calcium 10 MG Rosuvastati n Calcium 10 MG 05-13 00:00: 00 No 1{table t} QD Rosuvastat in Calcium 10 MG Lidocaine Lidocaine 2021-10 00:00: 00 No 20mg [facility] Kenalog (Triamcinol one) Kenalog (Triamcinol one) 2021-10 00:00: 00 No 40mg [facility] losartan (COZAAR) 25 mg tablet 01-13 13:56: 11 Yes 25mg Take 25 mg by mouth daily. [facility] Cholecalcif greg, Vitamin D3, (VITAMIN D3) 1,000 unit Cap 01-13 13:56: 11 Yes 1{capsu le} Take 1 Cap by mouth daily. [facility] aspirin (ASPIRIN CHILDRENS) 81 mg chewable tablet 01-13 13:56: 11 Yes 81mg Take 81 mg by mouth daily. [facility] losartan (COZAAR) 25 mg tablet 01-13 08:56: 11 Yes 25mg Take 25 mg by mouth daily. [facility] Cholecalcif greg, Vitamin D3, (VITAMIN D3) 1,000 unit Cap 01-13 08:56: 11 Yes 1{capsu le} Take 1 Cap by mouth daily. [facility] aspirin (ASPIRIN CHILDRENS) 81 mg chewable tablet 01-13 08:56: 11 Yes 81mg Take 81 mg by mouth daily. [facility] buPROPion 100 mg tablet 2019-10 00:00: 00 Yes 100mg Take 100 mg by mouth. [facility] triamcinolo ne 0.1 % lotion 04-12 00:00: 00 Yes Apply to area(s) 3 (three) times daily. [facility] losartan (COZAAR) 25 mg tablet 04-08 16:22: 43 Yes 25mg Take 25 mg by mouth daily. [facility] Cholecalcif greg, Vitamin D3, (VITAMIN D3) 1,000 unit Cap 04-08 15:54: 30 Yes 1{capsu le} Take 1 Cap by mouth daily. [facility] aspirin (ASPIRIN CHILDRENS) 81 mg chewable tablet 04-08 15:54: 30 Yes 81mg Take 81 mg by mouth daily. [facility] metoprolol tartrate (LOPRESSOR) 100 mg tablet 04-19 00:00: 00 Yes 100mg Take 1 Tab by mouth daily. [facility] pravastatin (PRAVACHOL) 40 mg tablet 12-09 00:00: 00 Yes 40mg Take 40 mg by mouth 2 (two) times daily. [facility] ferrous sulfate (IRON) 325 mg (65 mg Iron) tablet 12-09 00:00: 00 Yes 325mg Take 325 mg by mouth daily. [facility] pantoprazol e sodium 40 mg tablet pantoprazol e sodium [address] Yes [facility] allopurinol 100 mg tablet allopurinol 100 mg tablet Yes [facility] albuterol sulfate hfa 108 (90 base) mcg/act aerosol soln albuterol sulfate hfa 108 (90 base) mcg/act aerosol soln Yes [facility] LUMIGAN 0.01 % SOLUTION LUMIGAN 0.01 % SOLUTION Yes [facility] ketoconazol e 2 % cream ketoconazol e 2 % cream Yes [facility] gabapentin 100 mg capsule gabapentin 100 mg capsule Yes [facility] sulfamethox azole-trime thoprim 800-160 mg tablet sulfamethox azole-trime thoprim 800-160 mg tablet Yes [facility] chlorthalid one 25 mg tablet chlorthalid one 25 mg tablet Yes [facility] rosuvastati n calcium 10 mg tablet rosuvastati n calcium 10 mg tablet Yes [facility] dicyclomine hcl 20 mg tablet dicyclomine hcl 20 mg tablet Yes [facility] amlodipine besylate 5 mg tablet amlodipine besylate 5 mg tablet Yes [facility] bupropion hcl er (xl) 300 mg tablet er 24 hr bupropion hcl er (xl) 300 mg tablet er 24 hr Yes [facility] albuterol sulfate (2.5 mg/3ml) 0.083% nebulized soln albuterol sulfate (2.5 mg/3ml) 0.083% nebulized soln Yes [facility] olmesartan medoxomil 40 mg tablet olmesartan medoxomil 40 mg tablet Yes [facility] Linzess 145 MCG Linzess 145 MCG No Linzess 145 MCG Triamcinolo ne Acetonide 0.1 % Triamcinolo ne Acetonide 0.1 % No 1{appli cation} BID Triamcinol one Acetonide 0.1 % Allopurinol 100 MG Allopurinol 100 MG No QD Allopurino l 100 MG buPROPion HCl ER (XL) 300 MG buPROPion HCl ER (XL) 300 MG No 1{table t_in_ e_mor ng} QD buPROPion HCl ER (XL) 300 [...] eye_in_ the_eve annel} QD Lumigan 0.01 % Gabapentin 100 MG [...] 20 MG Dicyclomine HCl 20 MG No 1{table t} TID Dicyclomin e HCl 20 MG Olmesartan Medoxomil 40 MG Olmesartan Medoxomil 40 MG No 1{table t} QD Olmesartan Medoxomil 40 MG Bactrim DS 800-160 MG Bactrim DS 800-160 MG No 1{table t} BID Bactrim DS 800-160 MG Vital Signs Vital Name Observation Time Observation Value Comments S annace height 2024-07-29 13:00:00 64 [in_i] [facility] weight 2024-07-29 13:00:00 247 [lb_av] [facility] temperature 2024-07-29 13:00:00 97.3 [degF] Com [facility] bmi 2024-07-29 13:00:00 42.39 kg/m2 [facility] oximetry 2024-07-29 13:00:00 99 % [facility] respiratory rate 2024-07-29 13:00:00 16 /min [facility] height 2024-05-13 09:20:00 64 [in_i] [facility] weight 2024-05-13 09:20:00 240 [lb_av] [facility] temperature 2024-05-13 09:20:00 97.3 [degF] Com [facility] bmi 2024-05-13 09:20:00 41.19 kg/m2 [facility] oximetry 2024-05-13 09:20:00 99 % [facility] respiratory rate 2024-05-13 09:20:00 16 /min [facility] blood pressure systolic 2024-05-13 09:20:00 120 mm[Hg] [facility] blood pressure diastolic 2024-05-13 09:20:00 72 mm[Hg] [facility] height 2024-04-01 09:40:00 64 [in_i] [facility] weight 2024-04-01 09:40:00 232.8 [lb_av] Co [facility] temperature 2024-04-01 09:40:00 97.2 [degF] Com [facility] bmi 2024-04-01 09:40:00 39.96 kg/m2 [facility] oximetry 2024-04-01 09:40:00 99 % [facility] respiratory rate 2024-04-01 09:40:00 16 /min [facility] blood pressure systolic 2024-04-01 09:40:00 138 mm[Hg] Common [facility] blood pressure diastolic 2024-04-01 09:40:00 86 mm[Hg] [facility] height 2024-01-30 08:40:00 64 [in_i] [facility] weight 2024-01-30 08:40:00 236 [lb_av] [facility] temperature 2024-01-30 08:40:00 97.3 [degF] Com [facility] bmi 2024-01-30 08:40:00 40.5 kg/m2 [facility] oximetry 2024-01-30 08:40:00 98 % [facility] respiratory rate 2024-01-30 08:40:00 16 /min [facility] blood pressure systolic 2024-01-30 08:40:00 136 mm[Hg] [facility] blood pressure diastolic 2024-01-30 08:40:00 84 mm[Hg] [facility] height 2023-10-12 10:00:00 64 [in_i] [facility] weight 2023-10-12 10:00:00 242 [lb_av] [facility] temperature 2023-10-12 10:00:00 97.2 [degF] Com mon [facility] bmi 2023-10-12 10:00:00 41.53 kg/m2 [facility] oximetry 2023-10-12 10:00:00 98 % [facility] respiratory rate 2023-10-12 10:00:00 16 /min [facility] blood pressure systolic 2023-10-12 10:00:00 126 mm[Hg] [facility] blood pressure diastolic 2023-10-12 10:00:00 70 mm[Hg] [facility] height 2023-07-11 10:00:00 64 [in_i] [facility] weight 2023-07-11 10:00:00 240.0 [lb_av] [facility] temperature 2023-07-11 10:00:00 97.2 [degF] Com [facility] bmi 2023-07-11 10:00:00 41.19 kg/m2 [facility] oximetry 2023-07-11 10:00:00 99 % [facility] respiratory rate 2023-07-11 10:00:00 16 /min [facility] blood pressure systolic 2023-07-11 10:00:00 134 mm[Hg] [facility] blood pressure diastolic 2023-07-11 10:00:00 70 mm[Hg] [facility] height 2023-05-28 14:40:00 64 [in_i] [facility] weight 2023-05-28 14:40:00 240 [lb_av] [facility] temperature 2023-05-28 14:40:00 97.3 [degF] Com [facility] bmi 2023-05-28 14:40:00 41.19 kg/m2 [facility] oximetry 2023-05-28 14:40:00 99 % [facility] respiratory rate 2023-05-28 14:40:00 17 /min [facility] blood pressure systolic 2023-05-28 14:40:00 134 mm[Hg] [facility] blood pressure diastolic 2023-05-28 14:40:00 78 mm[Hg] [facility] height 2023-04-06 09:40:00 64 [in_i] [facility] weight 2023-04-06 09:40:00 242.2 [lb_av] [facility] temperature 2023-04-06 09:40:00 97.3 [degF] Com [facility] bmi 2023-04-06 09:40:00 41.57 kg/m2 [facility] oximetry 2023-04-06 09:40:00 98 % [facility] respiratory rate 2023-04-06 09:40:00 16 /min [facility] blood pressure systolic 2023-04-06 09:40:00 138 mm[Hg] [facility] blood pressure diastolic 2023-04-06 09:40:00 72 mm[Hg] [facility] height 2023-02-07 10:00:00 64 [in_i] [facility] weight 2023-02-07 10:00:00 246 [lb_av] [facility] temperature 2023-02-07 10:00:00 97.3 [degF] Com [facility] bmi 2023-02-07 10:00:00 42.22 kg/m2 [facility] oximetry 2023-02-07 10:00:00 99 % [facility] respiratory rate 2023-02-07 10:00:00 16 /min [facility] blood pressure systolic 2023-02-07 10:00:00 128 mm[Hg] [facility] blood pressure diastolic 2023-02-07 10:00:00 74 mm[Hg] [facility] height 2023-01-29 09:00:00 64 [in_i] [facility] weight 2023-01-29 09:00:00 250 [lb_av] [facility] temperature 2023-01-29 09:00:00 97.2 [degF] Com [facility] bmi 2023-01-29 09:00:00 42.91 kg/m2 [facility] blood pressure systolic 2023-01-29 09:00:00 131 mm[Hg] [facility] blood pressure diastolic 2023-01-29 09:00:00 71 mm[Hg] [facility] height 2022-11-24 08:20:00 64 [in_i] [facility] weight 2022-11-24 08:20:00 247 [lb_av] [facility] temperature 2022-11-24 08:20:00 97.6 [degF] Com [facility] bmi 2022-11-24 08:20:00 42.39 kg/m2 [facility] oximetry 2022-11-24 08:20:00 99 % [facility] respiratory rate 2022-11-24 08:20:00 16 /min [facility] blood pressure systolic 2022-11-24 08:20:00 130 mm[Hg] [facility] blood pressure diastolic 2022-11-24 08:20:00 70 mm[Hg] [facility] height 2022-11-08 09:00:00 64 [in_i] [facility] weight 2022-11-08 09:00:00 246.4 [lb_av] Co [facility] bmi 2022-11-08 09:00:00 42.29 kg/m2 [facility] height 2022-09-04 11:00:00 64 [in_i] Commo [facility] weight 2022-09-04 11:00:00 246.4 [lb_av] Co [facility] temperature 2022-09-04 11:00:00 97.3 [degF] Com [facility] bmi 2022-09-04 11:00:00 42.29 kg/m2 [facility] oximetry 2022-09-04 11:00:00 98 % [facility] respiratory rate 2022-09-04 11:00:00 16 /min [facility] blood pressure systolic 2022-09-04 11:00:00 132 mm[Hg] [facility] blood pressure diastolic 2022-09-04 11:00:00 68 mm[Hg] [facility] height 2022-08-23 09:00:00 64 [in_i] Commo [facility] weight 2022-08-23 09:00:00 242 [lb_av] [facility] temperature 2022-08-23 09:00:00 97.3 [degF] Com [facility] bmi 2022-08-23 09:00:00 41.53 kg/m2 [facility] blood pressure systolic 2022-08-23 09:00:00 132 mm[Hg] [facility] blood pressure diastolic 2022-08-23 09:00:00 80 mm[Hg] [facility] height 2022-08-02 09:00:00 64 [in_i] Commo n [facility] weight 2022-08-02 09:00:00 242 [lb_av] [facility] on [facility] temperature 2022-08-02 09:00:00 97.3 [degF] Com [facility] bmi 2022-08-02 09:00:00 41.53 kg/m2 [facility] blood pressure systolic 2022-08-02 09:00:00 136 mm[Hg] [facility] blood pressure diastolic 2022-08-02 09:00:00 80 mm[Hg] [facility] height 2022-07-05 10:00:00 64 [in_i] Commo n [facility] weight 2022-07-05 10:00:00 240 [lb_av] [facility] temperature 2022-07-05 10:00:00 97.1 [degF] Com [facility] bmi 2022-07-05 10:00:00 41.19 kg/m2 Comm [facility] blood pressure systolic 2022-07-05 10:00:00 136 mm[Hg] [facility] blood pressure diastolic 2022-07-05 10:00:00 84 mm[Hg] [facility] height 2022-05-30 10:00:00 64 [in_i] [facility] weight 2022-05-30 10:00:00 250.0 [lb_av] [facility] temperature 2022-05-30 10:00:00 97.6 [degF] Com [facility] bmi 2022-05-30 10:00:00 42.91 kg/m2 Comm [facility] oximetry 2022-05-30 10:00:00 97 % [facility] respiratory rate 2022-05-30 10:00:00 18 /min [facility] blood pressure systolic 2022-05-30 10:00:00 136 mm[Hg] [facility] blood pressure diastolic 2022-05-30 10:00:00 70 mm[Hg] [facility] height 2022-02-24 10:00:00 64 [in_i] [facility] weight 2022-02-24 10:00:00 244.6 [lb_av] [facility] temperature 2022-02-24 10:00:00 97.2 [degF] Com [facility] bmi 2022-02-24 10:00:00 41.98 kg/m2 [facility] oximetry 2022-02-24 10:00:00 98 % [facility] respiratory rate 2022-02-24 10:00:00 18 /min [facility] blood pressure systolic 2022-02-24 10:00:00 135 mm[Hg] [facility] blood pressure diastolic 2022-02-24 10:00:00 82 mm[Hg] [facility] height 2022-01-16 10:20:00 64 [in_i] Commo [facility] weight 2022-01-16 10:20:00 240 [lb_av] Comm on [facility] temperature 2022-01-16 10:20:00 97.8 [degF] Com mon [facility] bmi 2022-01-16 10:20:00 41.19 kg/m2 Comm on [facility] oximetry 2022-01-16 10:20:00 99 % Commo [facility] respiratory rate 2022-01-16 10:20:00 18 /min [facility] blood pressure systolic 2022-01-16 10:20:00 136 mm[Hg] [facility] blood pressure diastolic 2022-01-16 10:20:00 82 mm[Hg] [facility] height 2021-11-16 09:00:00 64 [in_i] Commo n [facility] weight 2021-11-16 09:00:00 241 [lb_av] Comm on [facility] bmi 2021-11-16 09:00:00 41.36 kg/m2 Comm on [facility] height 2021-09-09 08:40:00 64 [in_i] Commo n [facility] weight 2021-09-09 08:40:00 241 [lb_av] Comm on [facility] bmi 2021-09-09 08:40:00 41.36 kg/m2 Comm on [facility] height 2021-08-18 09:00:00 64 [in_i] Commo n [facility] weight 2021-08-18 09:00:00 241.0 [lb_av] Co [facility] temperature 2021-08-18 09:00:00 96.9 [degF] Com mon [facility] bmi 2021-08-18 09:00:00 41.36 kg/m2 Comm on [facility] oximetry 2021-08-18 09:00:00 99 % Commo [facility] respiratory rate 2021-08-18 09:00:00 18 /min [facility] blood pressure systolic 2021-08-18 09:00:00 120 mm[Hg] [facility] blood pressure diastolic 2021-08-18 09:00:00 74 mm[Hg] [facility] Systolic blood pressure 2021-06-15 14:30:00 131 mm[Hg] [facility] Diastolic blood pressure 2021-06-15 14:30:00 75 mm[Hg] [facility] Heart rate 2021-06-15 14:25:00 78 /min [facility] Body temperature 2021-06-15 14:25:00 36.78 Mateo [facility] Respiratory rate 2021-06-15 14:25:00 18 /min [facility] Body height 2021-06-15 14:25:00 170.2 cm [facility] Body weight 2021-06-15 14:25:00 113.671 kg [facility] BMI 2021-06-15 14:25:00 39.25 kg/m2 [facility] Body temperature 2021-01-13 13:54:00 36.67 Mateo [facility] Respiratory rate 2021-01-13 13:54:00 16 /min [facility] Body height 2021-01-13 13:54:00 170.2 cm [facility] Body weight 2021-01-13 13:54:00 109.045 kg [facility] BMI 2021-01-13 13:54:00 37.65 kg/m2 [facility] Systolic blood pressure 2021-01-13 13:54:00 125 mm[Hg] [facility] Diastolic blood pressure 2021-01-13 13:54:00 69 mm[Hg] [facility] Heart rate 2021-01-13 13:54:00 75 /min General acute hospital Procedures Procedure Date / Time Performed Performing Clinician Source EXTERNAL PROVIDER RECORDS 2023-03-27 05:01:00 Do ctor Unassigned, [place] [facility] US PELVIS COMPLETE WITH TRANSVAGINAL 2021-05-11 15:20:44 Shilpa Bourgeois [facility] ASSIGNMENT OF BENEFITS 2021-05-11 13:41:33 Docto r Unassigned, [place] [facility] EXTERNAL PROVIDER RECORDS 2021-01-24 05:01:00 Do ctor Unassigned, [place] [facility] INSURANCE CORRESPONDENCE 2021-01-19 05:01:00 Doc tor Unassigned, [place] [facility] AUTHORIZATION TO RELEASE PHI TO [facility] 2021-01-13 05:01:00 Doctor Unassigned, [place] [facility] Encounters Start Date/Time End Date/Time Encounter Type Admission Type Attending Clinicians Care Facility Care Department Encounter ID Source 2024-07-29 10:28:00 Outpatient Colvin, Karlee STLMLC STLMLC [id number] [facility] 2024-05-09 10:19:00 Outpatient Colvin, Karlee STLMLC STLMLC [id number] [facility] 2024-01-28 09:20:00 Outpatient Colvin, Karlee STLMLC STLMLC [id number] [facility] 2023-11-20 15:38:00 Outpatient Colvin, Karlee STLMLC STLMLC [id number] [facility] 2023-10-11 15:49:00 Outpatient Colvin, Karlee STLMLC STLMLC [id number] [facility] 2023-10-10 11:02:00 Outpatient Colvin, Karlee STLMLC STLMLC [id number] [facility] 2023-05-25 09:01:00 Outpatient Colvin, Karlee STLMLC STLMLC [id number] [facility] 2023-04-04 09:55:00 Outpatient Colvin, Karlee STLMLC STLMLC [id number] [facility] 2023-02-06 13:31:00 Outpatient Colvin, Karlee STLMLC STLMLC [id number] [facility] 2023-02-05 16:18:00 Outpatient Colvin, Karlee STLMLC STLMLC [id number] [facility] 2023-01-30 15:37:00 Outpatient Colvin, Karlee STLMLC STLMLC [id number] [facility] 2022-11-24 09:46:00 Outpatient Colvin, Karlee STLMLC STLMLC [id number] [facility] 2022-11-08 08:23:00 Outpatient Colvin, Karlee STLMLC STLMLC [id number] [facility] 2022-11-07 15:16:00 Outpatient Karlee Colvin STLMLC STLMLC [id number] [facility] 2022-10-27 12:43:00 Outpatient aKrlee Colvin STLMLC STLMLC [id number] [facility] 2022-08-31 11:26:00 Outpatient Traore, Na STLMLC STLMLC [id number] [facility] 2022-08-02 09:07:01 Outpatient Traore, Na STLMLC STLMLC [id number] [facility] 2022-07-06 09:32:00 Outpatient Traore, Na STLMLC STLMLC [id number] [facility] 2022-07-05 10:27:00 Outpatient Traore, Na STLMLC STLMLC [id number] [facility] 2022-06-27 09:27:01 Outpatient Traore, Na STLMLC STLMLC [id number] [facility] 2022-05-26 10:09:00 Outpatient Eugenie Na STLMLC STLMLC [id number] [facility] 2022-02-22 08:24:02 Outpatient Traore, Na STLMLC STLMLC [id number] [facility] 2022-01-16 10:10:00 Outpatient Traore, Na STLMLC STLMLC [id number] [facility] 2021-11-16 14:32:02 Outpatient Traore, Na STLMLC STLMLC [id number] [facility] 2021-11-16 14:31:06 Outpatient Traore, Na STLMLC STLMLC [id number] [facility] 2021-11-16 13:09:20 Outpatient Sudha Traore STLMLC STLMLC [id number] [facility] 2021-11-16 12:39:12 Outpatient Sudha Traore STLMLC STLMLC [id number] [facility] 2021-11-16 12:34:08 Outpatient Sudha Traore STLMLC STLMLC [id number] [facility] 2021-11-16 12:25:21 Outpatient Sudha Traore STLMLC STLMLC [id number] [facility] 2021-11-16 12:25:09 Outpatient Sudha Traore STLMLC STLMLC [id number] [facility] 2021-11-16 12:14:55 Outpatient Sudha Traore STLMLC STLMLC [id number] [facility] 2021-11-16 12:14:45 Outpatient Azar Watson STLMLC STLMLC [id number] [facility] 2021-11-16 12:11:09 Outpatient Azar Watson STLMLC STLMLC [id number] [facility] 2021-11-16 12:08:17 Outpatient Azar Watson STLMLC STLMLC [id number] [facility] 2021-11-16 12:06:49 Outpatient Azar Watson STLMLC STLMLC [id number] [facility] 2021-11-16 12:01:10 Outpatient STLMLC STLMLC [id number] [facility] 2021-11-16 11:27:56 Outpatient Marissa Rodriguez STLMLC STLMLC [id number] [facility] 2021-11-16 11:13:44 Outpatient Marissa Rodriguez STLMLC STLMLC [id number] [facility] 2021-11-16 11:09:05 Outpatient Marissa Rodriguez STLMLC STLMLC [id number] [facility] 2021-11-16 11:06:45 Outpatient Marissa Rodriguez STGARLANDLC STLMLC [id number] [facility] 2024-07-31 00:00:00 2024-07-31 00:00:00 (TEL) STLMLC STLMLC [id number] [facility] 2024-07-30 14:00:00 2024-07-30 15:00:00 Annual D2Me Salli Fulminar 2.16.840. [id number] 2.16.840.1. [id number]24-[facility]-29 00:00:00 2024-07-29 00:00:00 OFFICE VISIT ESTAB PT LEVEL 4 STLMLC STLMLC [id number] [facility] 2024-07-28 00:00:00 2024-07-28 00:00:00 (TEL) STLMLC STLMLC [id number] [facility] 2024-07-22 00:00:00 2024-07-22 00:00:00 (TEL) STLMLC STLMLC [id number] [facility] 2024-06-02 00:00:00 2024-06-02 00:00:00 (TEL) STLMLC STLMLC [id number] [facility] 2024-05-14 00:00:00 2024-05-14 00:00:00 (TEL) STLMLC STLMLC [id number] [facility] 2024-05-13 00:00:00 2024-05-13 00:00:00 OFFICE VISIT ESTAB PT LEVEL 4 STLMLC STLMLC [id number] [facility] 2024-05-06 00:00:00 2024-05-06 00:00:00 (TEL) STLMLC STLMLC [id number] [facility] 2024-05-02 00:00:00 2024-05-02 00:00:00 (TEL) STLMLC STLMLC [id number] [facility] 2024-05-02 00:00:00 2024-05-02 00:00:00 (TEL) STLMLC STLMLC [id number] [facility] 2024-05-01 00:00:00 2024-05-01 00:00:00 (TEL) STLMLC STLMLC [id number] [facility] 2024-04-16 00:00:00 2024-04-16 00:00:00 (TEL) STLMLC STLMLC [id number] [facility] 2024-04-04 00:00:00 2024-04-04 00:00:00 (TEL) STLMLC STLMLC [id number] [facility] 2024-04-02 14:00:00 2024-04-02 14:30:00 [facility] [place] 2.16.840. [id number] 2.16.840.1. [id number] [address] [place] [address] 2024-04-01 00:00:00 2024-04-01 00:00:00 OFFICE VISIT ESTAB PT LEVEL 4 STLMLC STLMLC [id number] [facility] 2024-03-31 00:00:00 2024-03-31 00:00:00 (TEL) STLMLC STLMLC [id number] [facility] 2024-03-25 00:00:00 2024-03-25 00:00:00 (TEL) STLMLC STLMLC [id number] [facility] 2024-02-20 00:00:00 2024-02-20 00:00:00 (TEL) STLMLC STLMLC [id number] [facility] 2024-01-30 00:00:00 2024-01-30 00:00:00 OFFICE VISIT ESTAB PT LEVEL 4 STLMLC STLMLC [id number] [facility] 2023-12-26 00:00:00 2023-12-26 00:00:00 (TEL) STLMLC STLMLC [id number] [facility] 2023-12-18 00:00:00 2023-12-18 00:00:00 (TEL) STLMLC STLMLC [id number] [facility] 2023-11-20 00:00:00 2023-11-20 00:00:00 (TEL) STLMLC STLMLC [id number] [facility] 2023-10-16 00:00:00 2023-10-16 00:00:00 (TEL) STLMLC STLMLC [id number] [facility] 2023-10-12 00:00:00 2023-10-12 00:00:00 OFFICE VISIT ESTAB PT LEVEL 4 STLMLC STLMLC [id number] [facility] 2023-09-24 00:00:00 2023-09-24 00:00:00 (TEL) STLMLC STLMLC [id number] [facility] 2023-09-07 00:00:00 2023-09-07 00:00:00 (TEL) STLMLC STLMLC [id number] [facility] 2023-08-30 00:00:00 2023-08-30 00:00:00 (TEL) STLMLC STLMLC [id number] [facility] 2023-08-23 00:00:00 2023-08-23 00:00:00 (TEL) STLMLC STLMLC [id number] [facility] 2023-07-25 00:00:00 2023-07-25 00:00:00 (TEL) STLMLC STLMLC [id number] [facility] 2023-07-11 00:00:00 2023-07-11 00:00:00 (TEL) STLMLC STLMLC [id number] [facility] 2023-07-11 00:00:00 2023-07-11 00:00:00 OFFICE VISIT ESTAB PT LEVEL 4 STLMLC STLC [id number] [facility] 2023-07-02 00:00:00 2023-07-02 00:00:00 (TEL) STLMLC STLC [id number] [facility] 2023-06-11 18:00:00 2023-06-11 19:00:00 D2Me Madonnaefren Vargheset 2.16.840. [id number]. [id number] 2.16.840.1. [id number] [address] 2023-06-11 00:00:00 2023-06-11 00:00:00 (TEL) STLC STLC [id number] [facility] 2023-06-04 00:00:00 2023-06-04 00:00:00 (TEL) STLMLC STLC [id number] [facility] 2023-05-31 00:00:00 2023-05-31 00:00:00 (TEL) STLMLC STLC [id number] [facility] 2023-05-30 00:00:00 2023-05-30 00:00:00 Outpatient GC_GCBZW_Ka diyala_S PRIV PRIV [id number] [facility] 2023-05-30 00:00:00 2023-05-30 00:00:00 Outpatient GC_GCBZW_Ka diyala_S PRIV PRIV [id number] [facility] 2023-05-28 00:00:00 2023-05-28 00:00:00 Outpatient GC_GCBZW_Ka diyala_S PRIV PRIV [id number] [facility] 2023-05-28 00:00:00 2023-05-28 00:00:00 OFFICE VISIT ESTAB PT LEVEL 4 STLMLC STLMLC [id number] [facility] 2023-05-22 00:00:00 2023-05-22 00:00:00 (TEL) STLMLC STLMLC [id number] [facility] 2023-05-15 00:00:00 2023-05-15 00:00:00 (TEL) STLMLC STLMLC [id number] [facility] 2023-05-01 00:00:00 2023-05-01 00:00:00 (TEL) STLMLC STLMLC [id number] [facility] 2023-04-06 00:00:00 2023-04-06 00:00:00 OFFICE VISIT ESTAB PT LEVEL 4 STLMLC STLMLC [id number] [facility] 2023-04-06 00:00:00 2023-04-06 00:00:00 (TEL) STLMLC STLMLC [id number] [facility] 2023-03-27 00:00:00 2023-03-27 00:00:00 Orders Only Doctor Unassigned, [place] [facility] 1.2.840.114 350.1.13.10 4.2.7.2.686 [id number] [facility] 2023-02-21 00:00:00 2023-02-21 00:00:00 (TEL) STLMLC STLMLC [id number] [facility] 2023-02-07 00:00:00 2023-02-07 00:00:00 OFFICE VISIT ESTAB PT LEVEL 4 STLMLC STLMLC [id number] [facility] 2023-01-30 00:00:00 2023-01-30 00:00:00 (TEL) STLMLC STLMLC [id number] [facility] 2023-01-29 00:00:00 2023-01-29 00:00:00 OFFICE VISIT ESTAB PT LEVEL 3 STLMLC STLMLC [id number] [facility] 2023-01-23 00:00:00 2023-01-23 00:00:00 (TEL) STLMLC STLMLC [id number] [facility] 2023-01-19 00:00:00 2023-01-19 00:00:00 (TEL) STLMLC STLMLC [id number] [facility] 2022-12-08 00:00:00 2022-12-08 00:00:00 (TEL) STLMLC STLMLC [id number] [facility] 2022-12-06 00:00:00 2022-12-06 00:00:00 (TEL) STLMLC STLMLC [id number] [facility] 2022-11-28 00:00:00 2022-11-28 00:00:00 (TEL) STLMLC STLMLC [id number] [facility] 2022-11-24 00:00:00 2022-11-24 00:00:00 OFFICE VISIT ESTAB PT LEVEL 4 STLMLC STLMLC [id number] [facility] 2022-11-13 00:00:00 2022-11-13 00:00:00 (TEL) STLMLC STLMLC [id number] [facility] 2022-11-08 00:00:00 2022-11-08 00:00:00 OFFICE VISIT EST PT LEVEL 3 STLMLC STLMLC [id number] [facility] 2022-11-06 00:00:00 2022-11-06 00:00:00 (TEL) STLMLC STLMLC [id number] [facility] 2022-09-04 00:00:00 2022-09-04 00:00:00 OFFICE VISIT ESTAB PT LEVEL 4 STLMLC STLMLC [id number] [facility] 2022-08-23 00:00:00 2022-08-23 00:00:00 OFFICE VISIT EST PT LEVEL 3 STLMLC STLMLC [id number] [facility] 2022-08-02 00:00:00 2022-08-02 00:00:00 OFFICE VISIT EST PT LEVEL 3 STLMLC STLMLC [id number] [facility] 2022-07-05 00:00:00 2022-07-05 00:00:00 OFFICE VISIT NEW PT LEVEL 3 STLMLC STLMLC [id number] [facility] 2022-06-22 00:00:00 2022-06-22 00:00:00 (TEL) STLMLC STLMLC [id number] [facility] 2022-06-20 00:00:00 2022-06-20 00:00:00 (TEL) STLMLC STLMLC [id number] [facility] 2022-06-15 09:30:00 2022-06-15 09:30:00 Outpatient SHILPA [facility]LSON [facility] [id number] [facility] 2022-05-31 00:00:00 2022-05-31 00:00:00 (TEL) STLMLC STLMLC [id number] [facility] 2022-05-30 00:00:00 2022-05-30 00:00:00 OFFICE VISIT ESTAB PT LEVEL 4 STLMLC STLMLC [id number] [facility] 2022-05-22 00:00:00 2022-05-22 00:00:00 (TEL) STLMLC STLMLC [id number] [facility] 2022-05-06 10:01:00 2022-05-06 10:01:00 Outpatient Adams_R DMG DMG [id number] [facility] 2022-05-06 00:00:00 2022-05-06 00:00:00 Outpatient Adams_R DMG DMG [id number] [facility] 2022-03-29 00:00:00 2022-03-29 00:00:00 (TEL) STLMLC STLMLC [id number] [facility] 2022-03-21 00:00:00 2022-03-21 00:00:00 (TEL) STLMLC STLMLC [id number] [facility] 2022-03-16 00:00:00 2022-03-16 00:00:00 (TEL) STLMLC STLMLC [id number] [facility] 2022-03-09 00:00:00 2022-03-09 00:00:00 (TEL) STLMLC STLMLC [id number] [facility] 2022-03-02 00:00:00 2022-03-02 00:00:00 (TEL) STLMLC STLMLC [id number] [facility] 2022-02-24 00:00:00 2022-02-24 00:00:00 OFFICE VISIT ESTAB PT LEVEL 4 STLMLC STLMLC [id number] [facility] 2022-02-13 00:00:00 2022-02-13 00:00:00 (TEL) STLMLC STLMLC [id number] [facility] 2022-01-18 00:00:00 2022-01-18 00:00:00 (TEL) STLMLC STLMLC [id number] [facility] 2022-01-16 00:00:00 2022-01-16 00:00:00 OFFICE VISIT EST PT LEVEL 3 STLMLC STLMLC [id number] [facility] 2021-12-16 00:00:00 2021-12-16 00:00:00 (TEL) STLMLC STLMLC [id number] [facility] 2021-12-13 00:00:00 2021-12-13 00:00:00 OL DIG E/M SVC 11-20 MIN STLMLC STLMLC [id number] [facility] 2021-12-12 00:00:00 2021-12-12 00:00:00 (TEL) STLMLC STLMLC [id number] [facility] 2021-11-23 00:00:00 2021-11-23 00:00:00 (TEL) STLMLC STLMLC [id number] [facility] 2021-11-16 00:00:00 2021-11-16 00:00:00 OL DIG E/M SVC 11-20 MIN STLMLC STLMLC [id number] [facility] 2021-10-31 09:57:00 2021-10-31 09:57:00 Outpatient Adams_R DMG DMG [id number] [facility] 2021-10-18 12:00:00 2021-10-18 12:00:00 [place] [id number] [facility] 2021-09-09 00:00:00 2021-09-09 00:00:00 OL DIG E/M SVC 21+ MIN STLMLC STLMLC [id number] [facility] 2021-08-29 11:02:00 2021-08-29 11:02:00 Outpatient DMG [facility] [id number] [facility] 2021-08-18 00:00:00 2021-08-18 00:00:00 OFFICE VISIT EST PT LEVEL 3 STLMLC STLMLC [id number] [facility] 2021-08-18 00:00:00 2021-08-18 00:00:00 (TEL) STLMLC STLMLC [id number] [facility] 2021-08-18 00:00:00 2021-08-18 00:00:00 (TEL) STLMLC STLMLC [id number] [facility] 2021-08-15 00:00:00 2021-08-15 00:00:00 (TEL) STLMLC STLMLC [id number] [facility] 2021-07-08 00:00:00 2021-07-08 00:00:00 (TEL) STLMLC STLMLC [id number] [facility] 2021-06-21 00:00:00 2021-06-21 00:00:00 Outpatient STLMLC STLMLC [id number] [facility] 2021-06-15 09:22:29 2021-06-15 09:49:00 Office Visit Shilpa Bourgeois [facility] 1..840.114 350.1.13.10 4.2.7.2.686 [id number] [facility] 2021-06-15 09:00:00 2021-06-15 09:00:00 Outpatient SHILPA CARLSON [facility] [id number] [facility] 2021-06-10 00:00:00 2021-06-10 00:00:00 Outpatient STLMLC STLMLC [id number] [facility] 2021-06-10 00:00:00 2021-06-10 00:00:00 Outpatient STLMLC STLMLC [id number] [facility] 2021-05-11 08:42:39 2021-05-11 23:59:00 Hospital Encounter Wendy Shilpa [facility] 1..840.114 350.1.13.10 4.2.7.2.686 [id number] [facility] 2021-05-11 00:00:00 2021-05-11 00:00:00 Outpatient Ranjit CARRILLOYUE [facility] [id number] [facility] 2021-05-11 00:00:00 2021-05-11 00:00:00 Orders Only Doctor Unassigned, [place] [facility] 1..840.114 350.1.13.10 4.2.7.2.686 [id number] [facility] 2021-03-23 00:00:00 2021-03-23 00:00:00 Outpatient STLMLC STLMLC [id number] [facility] 2021-01-26 00:00:00 2021-01-26 00:00:00 Outpatient STLMLC STLMLC [id number] [facility] 2021-01-24 00:00:00 2021-01-24 00:00:00 Orders Only Doctor Unassigned, [place] [facility] 1..840.114 350.1.13.10 4.2.7.2.686 [id number] [facility] 2021-01-19 00:00:00 2021-01-19 00:00:00 Orders Only Doctor Unassigned, [place] [facility] 1.2.840.114 350.1.13.10 4.2.7.2.686 [id number] [facility] 2021-01-13 08:35:32 2021-01-13 09:20:50 Office Visit Shilpa Bourgeois [facility] 1.2840.114 350.1.13.10 4.2.7.2.686 [id number] [facility] 2021-01-13 09:00:00 2021-01-13 09:00:00 Outpatient R [facility] [id number] [facility] 2021-01-13 00:00:00 2021-01-13 00:00:00 Orders Only Doctor Unassigned, [place] [facility] 1.2840.114 350.1.13.10 4.2.7.2.686 [id number] [facility] 2021-01-13 00:00:00 2021-01-13 00:00:00 Letter (Out) Doctor Unassigned, [place] [facility] 1.2840.114 350.1.13.10 4.2.7.2.686 [id number] [facility] 2021-01-13 00:00:00 2021-01-13 00:00:00 Letter (Out) Doctor Unassigned, [place] [facility] 1.2.840.114 350.1.13.10 4.2.7.2.686 [id number] [facility] 2021-01-04 00:00:00 2021-01-04 00:00:00 Case Management Shilpa Bourgeois [facility] 1.2.840.114 350.1.13.10 4.2.7.2.686 [id number] [facility] 2021-01-03 00:00:00 2021-01-03 00:00:00 Outpatient STLMLC STLMLC [id number] [facility] 2020-12-21 00:00:00 2020-12-21 00:00:00 Outpatient STLMLC STLMLC [id number] [facility] 2020-11-16 00:00:00 2020-11-16 00:00:00 Outpatient STLMLC STLMLC [id number] [facility] 2020-11-10 00:00:00 2020-11-10 00:00:00 Outpatient STLMLC STLMLC [id number] [facility] 2020-10-12 00:00:00 2020-10-12 00:00:00 Outpatient STLMLC STLMLC [id number] [facility] 2020-10-11 00:00:00 2020-10-11 00:00:00 Outpatient STLMLC STLMLC [id number] [facility] 2020-09-30 00:00:00 2020-09-30 00:00:00 Outpatient STLMLC STLMLC [id number] [facility] 2020-09-29 00:00:00 2020-09-29 00:00:00 Outpatient STLMLC STLMLC [id number] [facility] 2020-09-14 00:00:00 2020-09-14 00:00:00 Outpatient STLMLC STLMLC [id number] [facility] 2020-09-14 00:00:00 2020-09-14 00:00:00 Outpatient STLMLC STLMLC [id number] [facility] 2020-09-14 00:00:00 2020-09-14 00:00:00 Outpatient STLMLC STLMLC [id number] [facility] 2020-09-13 00:00:00 2020-09-13 00:00:00 Outpatient STLMLC [facility] [id number] [facility] 2020-06-24 09:50:00 2020-06-24 09:50:00 Outpatient [facility] [id number] [facility] 2020-06-09 16:32:00 2020-06-09 16:32:[address] [facility] [id number] [facility] 2020-05-28 11:43:00 2020-05-28 11:43:[address] [facility] [id number] [facility] 2020-04-13 09:20:00 2020-04-13 09:20:[address] [facility] [id number] [facility] 2020-03-10 16:01:00 2020-03-10 16:01:[address] [facility] [id number] [facility] 2020-01-25 13:49:00 2020-01-25 13:49:[address] [facility] [place] [id number] [facility] 2020-01-02 09:45:00 2020-01-02 09:45:[address] [facility] [place] [id number] [facility] 2019-12-02 09:15:00 2019-12-02 09:15:[address] [facility] [place] [id number] [facility] 2019-11-17 14:50:00 2019-11-17 14:50:[address] [facility] [place] [facility] [id number] [facility] 2019-09-26 10:00:00 2019-09-26 10:00:[address] [facility] [facility] [address] [facility] [place] [facility] [id number] [facility] 2019-07-22 11:05:00 2019-07-22 11:05:[address] [facility] [place] [address] [id number] [facility] 2019-06-30 10:20:00 2019-06-30 10:20:[address] [facility] [facility] [address] [facility] [place] [address] [id number] [facility] 2019-04-17 20:26:00 2019-04-17 20:26:[address] [facility] [place] [address] [id number] [facility] 2019-04-16 15:58:00 2019-04-16 15:58:[address] [facility] [facility] [place] [facility] [id number] [facility] 2019-03-03 13:58:00 2019-03-03 13:58:[address] [facility] [place] [address] [facility] [id number] [facility] 2019-01-17 15:47:00 2019-01-17 15:47:[address] [facility] [place] [address] [id number] [facility] 2019-01-17 11:15:00 2019-01-17 11:15:[address] [facility] [facility] [place] [facility] [id number] [facility] 2019-01-10 01:41:00 2019-01-10 01:41:[address] [facility] [facility] [place] [facility] [id number] [facility] 2019-01-08 10:30:00 2019-01-08 10:30:[address] [facility] [facility] [address] [facility] [place] [address] [id number] [facility] 2018-12-26 14:36:00 2018-12-26 14:36:[address] [facility] [facility] [place] [address] [id number] [facility] 2018-12-25 11:15:00 2018-12-25 11:15:[address] [facility] [address] [facility] [place] [address] [facility] [id number] [facility] [place] [place] [facility] 2018-11-12 09:15:00 2018-11-12 09:15:[address] [facility] [facility] [place] [address] [facility] [id number] [facility] [place] [place] [facility] 2018-10-09 08:00:00 2018-10-09 08:00:00 [facility] [address] [facility] [place] [address] [facility] [id number] [facility] [place] [place] [facility] 2018-07-30 15:53:00 2018-07-30 15:53:[address] [facility] [facility] [address] [facility] [place] [address] [facility] [id number] [facility] 2018-07-29 09:10:00 2018-07-29 09:10:[address] [facility] [address] [facility] [place] [address] [facility] [id number] [facility] 2018-05-28 11:00:00 2018-05-28 11:00:00 [facility] [address] [facility] [place] [address] [facility] [id number] [facility] [place] [place] [facility] 2018-04-10 08:24:00 2018-04-10 08:24:[address] [facility] [facility] [address] [facility] [place] [facility] [id number] [facility] 2018-04-02 09:00:00 2018-04-02 09:00:00 [facility] [id number] [facility] [place], [place] - [facility] 2018-04-01 14:33:00 2018-04-01 14:33:00 [facility] [id number] [facility] [place], [place] [facility] 2018-03-21 08:55:00 2018-03-21 08:55:00 [facility] [id number] [facility] [place], [place] - [facility] 2018-03-19 09:30:00 2018-03-19 09:30:00 [facility] [id number] [facility] [place], [place] - [facility] Results Test Description Test Time Test Comments Results Result Co mments Source CULTURE, [id number] 00:00:00* Test Item Value Reference Range Interpretation Comme nts CULTURE, URINE (test code = 630-4) SPECIMEN NUMBER: [id number] CBC W/AUTO [id number] 00:00:00* Test Item Value Reference Range Interpretation Comme nts NUCLEATED RBCS (test code = 60752-8) 0.0 /100 WBC'S See_Comment [Automated messa ge] The system which generated this result transmitted reference range: 0.0 /100 WBC'S. The reference range was not used to interpret this result as normal/abnormal. ABSOLUTE EOSINOPHILS (test code = 61572-1) 0.27 K/UL See_Comment [Automated messa ge] The system which generated this result transmitted reference range: 0.00-0.50 K/UL. The reference range was not used to interpret this result as normal/abnormal. ABSOLUTE LYMPHOCYTES (test code = 48064-1) 1.99 K/UL See_Comment [Automated messa ge] The system which generated this result transmitted reference range: 1.00-4.00 K/UL. The reference range was not used to interpret this result as normal/abnormal. ABSOLUTE MONOCYTES (test code = 91352-7) 0.75 K/UL See_Comment [Automated messa ge] The system which generated this result transmitted reference range: 0.20-1.00 K/UL. The reference range was not used to interpret this result as normal/abnormal. ABSOLUTE NEUTROPHILS (test code = 91856-7) 6.41 K/UL See_Comment [Automated messa ge] The system which generated this result transmitted reference range: 1.50-7.50 K/UL. The reference range was not used to interpret this result as normal/abnormal. BASOPHILS (test code = 30347-9) 0.5 % EOSINOPHILS (test code = 92156-6) 2.8 % HEMATOCRIT (test code = 56065-9) 33.8 % See_Comment L [Automated messa ge] [...] result as normal/abnormal. LYMPHOCYTES (test code = 03729-1) 21.0 % MCH (test code = 41988-2) 29.7 PG See_Comment [Automated messa ge] The system which generated this result transmitted reference range: 25.0-33.0 PG. The reference range was not used to interpret this result as normal/abnormal. MCHC (test code = 74999-2) 32.0 G/DL See_Comment [Automated messa ge] The system which generated this result transmitted reference range: 31.0-36.0 G/DL. The reference range was not used to interpret this result as normal/abnormal. MCV (test code = 24369-7) 92.9 fL See_Comment [Automated messa ge] The system which generated this result transmitted reference range: 80.0-99.0 fL. The reference range was not used to interpret this result as normal/abnormal. MONOCYTES (test code = 68849-5) 7.9 % NEUTROPHILS (test code = 42284-1) 67.6 % PLATELET COUNT (test code = 20068-0) 231 K/UL See_Comment [Automated messa ge] The system which generated this result transmitted reference range: 130-400 K/UL. The reference range was not used to interpret this result as normal/abnormal. RBC (test code = 21664-5) 3.64 M/UL See_Comment L [Automated messa ge] The system which generated this result transmitted reference range: 3.80-5.40 M/UL. The reference range was not used to interpret this result as normal/abnormal. RDW (test code = 71643-8) 13.7 % See_Comment [Automated messa ge] The system which generated this result transmitted reference range: 11.5-15.0 %. The reference range was not used to interpret this result as normal/abnormal. WBC (test code = 80099-1) 9.5 K/UL See_Comment [Automated messa ge] The system which generated this result transmitted reference range: 3.5-11.0 K/UL. The reference range was not used to interpret this result as normal/abnormal. CBC W/AUTO [id number] 00:00:00* Test Item Value Reference Range Interpretation Comme nts NUCLEATED RBCS (test code = 99529-0) 0.0 /100 WBC'S See_Comment [Automated messa ge] The system which generated this result transmitted reference range: 0.0 /100 WBC'S. The reference range was not used to interpret this result as normal/abnormal. ABSOLUTE EOSINOPHILS (test code = 21613-1) 0.32 K/UL See_Comment [Automated messa ge] The system which generated this result transmitted reference range: 0.00-0.50 K/UL. The reference range was not used to interpret this result as normal/abnormal. ABSOLUTE LYMPHOCYTES (test code = 22346-7) 2.60 K/UL See_Comment [Automated messa ge] The system which generated this result transmitted reference range: 1.00-4.00 K/UL. The reference range was not used to interpret this result as normal/abnormal. ABSOLUTE MONOCYTES (test code = 53651-2) 0.60 K/UL See_Comment [Automated messa ge] The system which generated this result transmitted reference range: 0.20-1.00 K/UL. The reference range was not used to interpret this result as normal/abnormal. ABSOLUTE NEUTROPHILS (test code = 59831-3) 6.76 K/UL See_Comment [Automated messa ge] The system which generated this result transmitted reference range: 1.50-7.50 K/UL. The reference range was not used to interpret this result as normal/abnormal. BASOPHILS (test code = 68572-8) 0.9 % EOSINOPHILS (test code = 80741-8) 3.1 % HEMATOCRIT (test code = 80077-8) 32.8 % See_Comment L [Automated messa ge] [...] result as normal/abnormal. LYMPHOCYTES (test code = 10975-5) 25.0 % MCH (test code = 82696-2) 29.6 PG See_Comment [Automated messa ge] The system which generated this result transmitted reference range: 25.0-33.0 PG. The reference range was not used to interpret this result as normal/abnormal. MCHC (test code = 26536-3) 32.6 G/DL See_Comment [Automated messa ge] The system which generated this result transmitted reference range: 31.0-36.0 G/DL. The reference range was not used to interpret this result as normal/abnormal. MCV (test code = 63308-5) 90.9 fL See_Comment [Automated messa ge] The system which generated this result transmitted reference range: 80.0-99.0 fL. The reference range was not used to interpret this result as normal/abnormal. MONOCYTES (test code = 27727-7) 5.8 % NEUTROPHILS (test code = 03463-2) 64.9 % PLATELET COUNT (test code = 86378-8) 208 K/UL See_Comment [Automated messa ge] The system which generated this result transmitted reference range: 130-400 K/UL. The reference range was not used to interpret this result as normal/abnormal. RBC (test code = 80436-1) 3.61 M/UL See_Comment L [Automated messa ge] The system which generated this result transmitted reference range: 3.80-5.40 M/UL. The reference range was not used to interpret this result as normal/abnormal. RDW (test code = 51664-3) 13.0 % See_Comment [Automated messa ge] The system which generated this result transmitted reference range: 11.5-15.0 %. The reference range was not used to interpret this result as normal/abnormal. WBC (test code = 85159-2) 10.4 K/UL See_Comment [Automated messa ge] The system which generated this result transmitted reference range: 3.5-11.0 K/UL. The reference range was not used to interpret this result as normal/abnormal. US PELVIS COMPLETE WITH [id number] 23:04:561. ?Simple cyst in the left ovary [...] colorDoppler evaluation of the pelvis was performed. Hand Edger images wereobtained for the record. COMPARISON: None [...] colorDoppler evaluation of the pelvis was performed. Hand Edger images wereobtained for the record. COMPARISON: NoneFINDINGS:STATEMENT: [...] reviewed this study and agree with theabove report.[facility] SCR KAILASH BILAT W/CAD3D SCR KAILASH BILAT W/CADSARS-COV 2 AntigenSARS-COV 2 Antigen Notes Date/Time Note Provider Source 2024-07-30 14:00:00 ASSESSMENT SUMMARY SERGIO RIVAS is a 63 year old woman seen today by [facility] for a [facility]. Urgent Concerns- This member was seen today for a [facility] ([facility]) Comprehensive Assessment visit via telemedicine - Follow up with primary care and specialists as scheduled. Follow up with [facility] annually and as needed. - Member informed that Comprehensive Assessment Visit (CAV) is not a substitute for their Annual Wellness Visit (AWV) with their PCP. - Presented in a stable state and no acute distress at time of visit. Medication reconciliation performed. Additional Comments- Member verified for HIPAA compliance using Name, , and address. Member is physically located in the state of their confirmed physical address at the time of visit. Telemedicine consent obtained prior to visit. Visit PurposeThese visits are scheduled to augment PCPs to close care and documentation gaps, reconcile medications, help patients make full use of their [facility] benefits and educate patients about their conditions. This visit DOES NOT replace the your Annual Medicare Visit with the patient. The member was encouraged to schedule an AWV with their PCP to review our visit summary & recommendations. See below for teaching and instruction given regarding specific diagnoses. Member verbalized understanding to all. Members Preferred Language Prydeinig Patient Currently Located in their home state of [place], YES DIAGNOSIS BWAUKLLI89.4 - Major depressive disorder, single episode, in partial qghsizxzpJ16.01 - Morbid (severe) obesity due to excess eymalqsxO32.32 - Chronic kidney disease, stage 3bZ68.38 - Body mass index [BMI] 38.0-38.9, dxdmoO32.5 - Hyperlipidemia, bdojpeqneoaC21.9 - Hypertensive chronic kidney disease with stage 1 through stage 4 chronic kidney disease, or unspecified chronic kidney skpkybrD17.909 - Unspecified asthma, sqsktszsyfjqyF90.9 - Gastro-esophageal reflux disease without ymhezvfwkokL50.90 - Unspecified osteoarthritis, unspecified site PATIENT INTAKE Has the patient had an Annual Wellness Visit this calendar year?: AWV already completed MEDICATION RECONCILIATION Did you review the patient's prescription and non-prescription drugs, vitamins, herbal remedies, and other supplements, AND is the accompanying medication list documented in the medical record?: Yes GENERAL ASSESSMENT Feet: 5 Inches: 6 Pounds: 240 Patient BMI: 38.73 Notes for E66.01: - BMI 38.73 morbid obesity, dx with HTN, HLD, OA. Currently noted efforts of: regular activity and balanced diet. - Recommend increasing exercise regimen with silver sneakers/wellness benefits as tolerated - Educated on the benefits of maintaining healthy weight and wt loss. - Follow up by PCP. - physically active at home.DISCUSSED: Dietary counseling was providedACTION: Advised the patient to discuss with their PCP a possible referral to a weight management program Morbid obesity confirmed on physical exam: Yes Dx: Z68.38 - Body mass index [BMI] 38.0-38.9, adult Notes for Z68.38: - BMI 38.73 morbid obesity, dx with HTN, HLD, OA. Currently noted efforts of: regular activity and balanced diet. - Recommend increasing exercise regimen with silver sneakers/wellness benefits as tolerated - Educated on the benefits of maintaining healthy weight and wt loss. - Follow up by PCP. - physically active at home.DISCUSSED: Dietary counseling was providedACTION: Advised the patient to discuss with their PCP a possible referral to a weight management program Supplemental oxygen status: Room Air Supplemental Oxygen Needs: Does not need supplemental oxygen How would you rate your pain on average? (0 = No Pain, 10 = Worst Imaginable Pain): 0 Do you exercise regularly?: Yes Physical activity level during a typical week: physically active at home ACTION: Counseled patient on health benefits of regular physical activity SUBSTANCE USE - Smoking History The patient denies a history of tobacco use SUBSTANCE USE - Alcohol Use Has the patient ever been a heavy drinker?: No [Impaired Control] Have you EVER felt like your alcohol use was a problem, or felt like you were an alcoholic?: No [Social Disruption] To your knowledge, have the people around you EVER felt like your alcohol use was a problem?: No [Dependence] Have you EVER gone to AA or sought TREATMENT related to alcohol use? [eg - rehab, been seen in the ED or hospital for an alcohol issue, been on remission maintenance meds, counseling, etc]: No The alcohol screen was negative. Would you like to proceed with the full assessment anyway?: No SUBSTANCE USE - Controlled Prescribed Substances [Chronic Use] Has the patient ever been prescribed a controlled substance used near DAILY for a period of 30 DAYS OR LONGER?: No SUBSTANCE USE - Non-Prescribed Controlled Substances The patient has not disclosed taking any illicit substances: Yes SCREENING - Depression Previously diagnosed with major depressive disorder?: Yes Is the patient currently on antidepressant medication?: Yes Little interest or pleasure in doing things?: Not at all (0) Feeling down, depressed, or hopeless?: Not at all (0) Trouble falling or staying asleep, or sleeping too much?: Not at all (0) Feeling tired or having little energy?: Not at all (0) Poor appetite or overeating?: Not at all (0) Feeling bad about yourself, or that you are a failure or have let yourself or your family down?: Not at all (0) Trouble concentrating on things, such as reading the newspaper or watching television?: Not at all (0) Moving or speaking so slowly that other people could have noticed? 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 - Member currently taking Bupropion. Denies side effects, compliant with medication. - PHQ score of 0. - Encouraged to find enjoyable activities or new hobbies. - Advised on measures to improve mood, including regular exercise, good sleep hygiene, balanced diet. - Mental Health Resources through [facility]. - Advised to seek medical attention for worsening of depression or anxious symptoms, thought of wanting to harm self or others. 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 behavioral therapy and pharmacotherapy for MDD in partial remissionACTION: Follow up with PCP for prescription and management of antidepressant SCREENING - Fall Risk Have you fallen in the past year?: No Do you feel unsteady when standing or walking?: No SCREENING - [place] ADL Assessment Mobility status: Ambulatory without assistive device Bathe / shower yourself without assistance?: Yes Select clothes from wardrobe, dress, and undress without assistance?: Yes Use the toilet and clean yourself without assistance?: Yes Move in and out of bed or chair without assistance?: Yes Exercise complete self control over urination and defecation?: Yes Eat without assistance?: Yes PUENTE ADL Score: 6/6 SCREENING - DME & Home Health Does the patient use any durable medical equpiment?: Yes Walker: Yes Does the patient use home health, physical therapy or mcc services?: No New orders, referrals, or any other assistance with DME or home health needed at this time?: No DME Notes: uses rollator as needed GENERAL REVIEW OF SYSTEMS Fevers: No Chest Pain or Pressure: No Shortness of Breath at Rest or with Exertion: No Lower Extremity Edema: No Palpitations: No Leg Pain / Cramps with Walking: No Wheezing: No Cough: Yes Changes in Stools: No Urination at Night: No Urinary Incontinence: No Easy Bruising: Yes Weakness: No Numbness: No Balance Problems: Yes Neurology Symptoms Notes: rollator as needed. Wounds / Sores That Don't Heal: No Joint Pain / Swelling: Yes MSK Symptoms Notes: knee pain; leg cramps when laying down. Review of systems negative unless otherwise indicated above PHYSICAL EXAM Additional Notes: telephone visit only. PULMONARY - Chronic Lung Disease Signs or symptoms of an acute exacerbation of COPD?: No Frequency of asthma symptoms: 2 or fewer days per week Dx: J45.909 - Unspecified asthma, uncomplicated Notes for J45.909: - Symptoms currently well controlled. - Current meds include: albuterol inhaler, albuterol for nebulization. - Current triggers: weather change. - Reviewed rescue versus controller medication use. - Followed by PCP. CARDIOVASCULAR - Congestive Heart Failure Signs or symptoms of an ACUTE EXACERBATION of chronic CHF?: No MEDICATION REFILLS Please confirm: Are any of the medications listed above within 30 days of their next fill date, or past due of their next fill date?: No RENAL - Chronic Kidney Disease Does patient carry a diagnosis of chronic kidney disease?: Yes Prescribed a phosphate binder (e.g. Sevelamer), a vitamin D analog (e.g. Calcitriol), or a calcimimetic agent (e.g. Sensipar)?: No Dx: N18.32 - Chronic kidney disease, stage 3b Notes for N132: - CKD stage 3b. Most recent eGFR: 38 on 06/06/2024. - Taking medication: Olmesartan. Advised tight BP control <140/90 . - Recommend avoiding NSAIDS / PPIs. - Followed with PCP and corporate lawyer appointment.ACTION: Confirm that the patient is on an KHALIDA inhibitor or ARBACTION: Discuss with the patient that referral to a corporate lawyer is needed if the patient progresses to CKD Stage 4 (eGFR < 30) HEMATOLOGY - Thrombocytopenia/Senile Purpura Is the patient's most recent platelet value within the past 12 months less than 150k?: No Thrombocytopenia Notes: telephone visit only. RHEUMATOID ARTHRITIS Previously recorded diagnosis of rheumatoid arthritis?: No Prescribed a disease-modifying antirheumatic drug (DMARD)?: No IMMUNODEFICIENCY Does patient CURRENTLY take a drug that suppresses the immune system?: No NEUROLOGY - Stroke Previously recorded diagnosis of a cerebrovascular accident?: No MORBID OBESITY Patient BMI: 38.73 The patient has a BMI of 38.73 as well as hypertension: Yes The patient has a BMI of 38.73 as well as hyperlipidemia: Yes The patient has a BMI of 38.73 as well as osteoarthritis: Yes Dx: E66.01 - Morbid (severe) obesity due to excess calories Notes for E66.01: - BMI 38.73 morbid obesity, dx with HTN, HLD, OA. Currently noted efforts of: regular activity and balanced diet. - Recommend increasing exercise regimen with silver sneakers/wellness benefits as tolerated - Educated on the benefits of maintaining healthy weight and wt loss. - Follow up by PCP. - physically active at home.DISCUSSED: Dietary counseling was providedACTION: Advised the patient to discuss with their PCP a possible referral to a weight management program Morbid obesity confirmed on physical exam: Yes Dx: Z68.38 - Body mass index [BMI] 38.0-38.9, adult Notes for Z68.38: - BMI 38.73 morbid obesity, dx with HTN, HLD, OA. Currently noted efforts of: regular activity and balanced diet. - Recommend increasing exercise regimen with silver sneakers/wellness benefits as tolerated - Educated on the benefits of maintaining healthy weight and wt loss. - Follow up by PCP. - physically active at home.DISCUSSED: Dietary counseling was providedACTION: Advised the patient to discuss with their PCP a possible referral to a weight management program COMMON DIAGNOSES The patient has a previously recorded diagnosis of asthma: Yes The patient has a diagnosis of hyperlipidemia: Yes The patient has a diagnosis of hypertension: Yes The patient has a previously recorded diagnosis of GERD: Yes The patient has a previously recorded diagnosis of osteoarthritis: Yes Frequency of asthma symptoms: 2 or fewer days per week Dx: J45.909 - Unspecified asthma, uncomplicated Notes for J45.909: - Symptoms currently well controlled. - Current meds include: albuterol inhaler, albuterol for nebulization. - Current triggers: weather change. - Reviewed rescue versus controller medication use. - Followed by PCP. Statin status: Already on a statin regimen Dx: E78.5 - Hyperlipidemia, unspecified Notes for E78.5: - Most recent labs: Total chol 169 ; LDL 112 ; HDL 38 ; Trig 89 on 05/07/2024. - HLD treated with: rosuvastatin. Denies medication associated side effects. - Encouraged low fat diet, exercise regimen, take medications as prescribed. - Followed by PCP.DISCUSSED: Educated patient on etiology and natural history of hyperlipidemiaDISCUSSED: Educated patient on lifestyle modifications such as diet and exercise to improve lipid levelsDISCUSSED: Educated patient on importance of medication adherence to improve lipid levelsACTION: Confirmed that patient's lipid levels are being monitored by PCP In addition to hypertension, the patient has the following condition(s): CKD Stage 1-4 Dx: I12.9 - Hypertensive chronic kidney disease with stage 1 through stage 4 chronic kidney disease, or unspecified chronic kidney disease Notes for I1.9: - Patient with HTN with CKD. - BP stable; eGFR: 38 on 06/06/2024. - HTN and CKD co-managed with Olmesartan; taking chlorthalidone, amlodipine for HTN; member compliant with medication, denies side effects. - Denies symptoms of CP, Headache, syncope, visual disturbances, SOB/COLEMAN , or LE edema - Counseled on a low sodium diet and regular physical activity as tolerated. Avoid NSAIDs/PPI. - Recommend to continue current regimen along with PCP and renal follow up.DISCUSSED: Educated patient on etiology and natural history of hypertensionDISCUSSED: Educated patient on lifestyle modifications such as diet and exercise to improve blood pressureDISCUSSED: Educated patient on importance of medication adherence for blood pressure control Previous documentation indicating esophagitis on EGD?: No Dx: K21.9 - Gastro-esophageal reflux disease without esophagitis Notes for K2.9: - Currently taking pantoprazole for symptoms of acid reflux / dyspepsia. Symptoms controlled with current medication. - Encouraged to avoid acidic, spicy foods, carbonated drinks, and caffeine. Recommend eat small meals, stop eating 2 hours before bedtime, elevate HOB when sleeping. - Followed by PCP. 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 She uses a rollator. - Treated with: tylenol as needed. - Pain controlled on current regimen. - Discussed importance of exercise and low impact activities Recommend avoidance of increased use of NSAIDs. Asking PCP if PT / OT / specialist evaluation of OA is necessary. - Follow up with PCP. APPOINTMENT CPT CODE* Please indicate how this visit was conducted: Telephone Visit Time: More than 20 minutes [facility]
--- NOTE | 2024-08-06 17:17 | RAD REPORT ---
EXAMINATION: US BILATERAL LOWER EXTREMITY VENOUS DOPPLER CLINICAL INDICATION: PAIN TECHNIQUE: Complete bilateral duplex sonography of the BILATERAL lower extremity veins was performed. The examination included compression for vein patency, color Doppler imaging and flow augmentation in response to distal compression of the distal external iliac, common femoral, femoral, popliteal, t ibial, and great and small saphenous veins. COMPARISON: No prior exam. FINDINGS: Duplex sonography testing of the veins of the BILATERAL lower extremity was performed. Color flow phillip ging shows all veins to be compressible with [id number] color filling. Pulsatile and phasic flow is present within all lower extremity deep and superficial veins examined. IMPRESSION: There is no deep vein or superficial vein thrombosis.
[2024-08-06] MEDS ORDERED: ONDANSETRON 4 MG/2 ML VIAL ONE (17:39)
[2024-08-06] MEDS ORDERED: MORPHINE 4 MG/ML SYR ONE (17:39)
[2024-08-06] MEDS ORDERED: dexAMETHasone 10 MG/ML VIAL ONE (17:39)
[2024-08-06] MEDS ORDERED: NA CHLORIDE 0.9% 500 ML ONE (17:39)
[2024-08-06 17:44] LABS: Absolute Basophils 0.3 K/uL (0-0.5); Absolute Eosinophils 0.3 K/uL (0-0.5); Absolute Lymphocytes (CBC) 3.1 K/uL (0.7-4.9); Absolute Monocytes 0.8 K/uL (0.1-1.3); Absolute Neutrophil 8.4 K/uL (1.8-8.0); Basophils % 2.5 % (0-1.3); Eosinophils % 2.4 % (0-4.4); Hematocrit 33.6 % (36.0-45.0); Hemoglobin 11.3 g/dL (12.0-15.0); Lymphocytes % 23.8 % (15.3-44.8); MCH 30.4 pg (27.0-35.0); MCHC 33.6 g/dL (32.0-36.0); MCV 90.4 fL (80-100); MPV 9.9 fL (7.6-11.3); Monocytes % 6.4 % (3.3-12.3); Neutrophils % 64.9 % (41.7-73.7); Nucleated Red Blood Cells % 0.2 % (0-0); Platelets 312 thou/uL (152-406); RBC Red Blood Cell Count 3.72 M/uL (3.86-4.86); Red Cell Distribution Width 15.4 % (12.1-15.2)
[2024-08-06 18:06] LABS: Albumin/Globulin Ratio 0.9 (1.1-1.8); Anion Gap 9.7 mEq/L (5.0-15.0); Bilirubin Total 0.3 mg/dL (0.2-1.0); Globulin 4.5 g/dL (2.3-3.5); Protein, Total 8.5 g/dL (6.4-8.2)
[2024-08-06 18:08] LABS: Potassium 7.7 mEq/L (3.5-5.1)
--- NOTE | 2024-08-06 18:17 | EDPHYS ---
Physician Documentation [facility] Name: Sergio Otero Age: 63 yrs Sex: Female : 1960 Arrival Date: 08/06/2024 Time: 15:37 Bed 16 Private MD: GILSON Physician Eugenio Sanchez HPI: 08/06 17:30 This 63 yrs old Black Female presents to ER via Wheelchair with complaints of left leg aundrea numbness-trouble walking. 17:30 The patient presents with pain that is acute, and decreased range of motion, and an aundrea injury. The symptoms are located in the low back, lumbar area and left low back. The pain radiates to the lumbar area and left low back. The problem was sustained from unknown cause. Modifying factors: The patient symptoms are alleviated by remaining still, the patient symptoms are aggravated by any movement, movement, standing. Associated signs and symptoms: The patient has no apparent associated signs or symptoms. The patient presents with decreased range of motion. The complaints affect the left hamstring and posterior aspect of left knee. Historical: - Allergies: 15:43 No Known Drug Allergies; ll1 - PMHx: 15:43 Gout; Hyperlipidemia; Hypertension; kidney function is low; Sickle Cell Trait; ll1 - PSHx: 15:43 section; foot; Shoulder (Gout); ll1 15:47 adrenal gland removed; ll1 - Immunization history:: Adult Immunizations up to date. - Infectious Disease History:: Denies. - Social history:: Smoking status: Patient denies any tobacco usage or history of. - Family history:: not pertinent. ROS: 17:30 Constitutional: Negative for fever, chills, and weight loss, Eyes: Negative for injury, aundrea pain, redness, and discharge, ENT: Negative for injury, pain, and discharge, Neck: Negative for injury, pain, and swelling, Cardiovascular: Negative for chest pain, palpitations, and edema, Respiratory: Negative for shortness of breath, cough, wheezing, and pleuritic chest pain, Abdomen/GI: Negative for abdominal pain, nausea, vomiting, diarrhea, and constipation, : Negative for injury, bleeding, discharge, and swelling, MS/Extremity: Negative for injury and deformity, Skin: Negative for injury, rash, and discoloration, Neuro: Negative for headache, weakness, numbness, tingling, and seizure, Psych: Negative for depression, anxiety, suicide ideation, homicidal ideation, and hallucinations, Allergy/Immunology: Negative for hives, rash, and allergies, Endocrine: Negative for neck swelling, polydipsia, polyuria, polyphagia, and marked weight changes, Hematologic/Lymphatic: Negative for swollen nodes, abnormal bleeding, and unusual bruising, 17:30 Back: Positive for decreased range of motion, pain with movement, radiated pain, of the lumbar area and left low back, Exam: 17:30 Constitutional: This is a well developed, well nourished patient who is awake, alert, aundrea and in no acute distress. Head/Face: Normocephalic, atraumatic. Eyes: Pupils equal round and reactive to light, extra-ocular motions intact. Lids and lashes normal. Conjunctiva and sclera are non-icteric and not injected. Cornea within normal limits. Periorbital areas with no swelling, redness, or edema. ENT: Nares patent. No nasal discharge, no septal abnormalities noted. Tympanic membranes are normal and external auditory canals are clear. Oropharynx with no redness, swelling, or masses, exudates, or evidence of obstruction, uvula midline. Mucous membranes moist. Neck: Trachea midline, no thyromegaly or masses palpated, and no cervical lymphadenopathy. Supple, full range of motion without nuchal rigidity, or vertebral point tenderness. No Meningismus. Chest/axilla: Normal chest wall appearance and motion. Nontender with no deformity. No lesions are appreciated. Cardiovascular: Regular rate and rhythm with a normal S1 and S2. No gallops, murmurs, or rubs. Normal PMI, no JVD. No pulse deficits. Respiratory: Lungs have equal breath sounds bilaterally, clear to auscultation and percussion. No rales, rhonchi or wheezes noted. No increased work of breathing, no retractions or nasal flaring. Abdomen/GI: Soft, non-tender, with normal bowel sounds. No distension or tympany. No guarding or rebound. No evidence of tenderness throughout. Female : Normal external genitalia. Skin: Warm, dry with normal turgor. Normal color with no rashes, no lesions, and no evidence of cellulitis. MS/ Extremity: Pulses equal, no cyanosis. Neurovascular intact. Full, normal range of motion. Neuro: Awake and alert, GCS 15, oriented to person, place, time, and situation. Cranial nerves II-XII grossly intact. Motor strength 5/5 in all extremities. Sensory grossly intact. Cerebellar exam normal. Normal gait. Psych: Awake, alert, with orientation to person, place and time. Behavior, mood, and affect are within normal limits. 17:30 Back: pain, that is moderate, ROM is painful, normal spinal alignment noted, CVA tenderness, is absent, 17:30 Musculoskeletal/extremity: ROM: full active range of motion, full passive range of motion, Circulation is intact in all extremities. Pulses: noted to be 4+ in the bilateral radial, brachial, femoral, popliteal, posterior tibial and and dorsalis pedis arteries., Sensation intact. Weight bearing: able to fully bear weight, DVT Exam: pain, swelling, tenderness, of the right leg, of the left leg, 18:45 ECG was reviewed by the Attending Physician. [facility] Vital Signs: 15:48 BP 139 / 70; Pulse 83; Resp 17; Temp 97.6; Pulse Ox 100% ; Weight 108.86 kg; Height 5 ll1 ft. 6 in. ; Pain 7/10; 18:00 BP 120 / 70; Pulse 79; Resp 16; Pulse Ox 100% on R/A; jb4 22:32 BP 120 / 82; Pulse 92; Resp 16; Pulse Ox 100% on R/A; jb4 15:48 Body Mass Index 38.74 (108.86 kg, 167.64 cm) ll1 15:48 Pain Scale: Adult ll1 MDM: 16:00 Medical Screening Exam initiated [facility] 16:03 Medical Screening Exam initiated [facility] 18:42 Differential diagnosis: arthritis, strain, fracture, sciatica, Herniated disc UTI. Data [facility] reviewed: vital signs, nurses notes, lab test result(s), EKG, radiologic studies, CT scan, plain films. Consideration of Admission/Observation Patient was admitted/placed on observation. Escalation of care including admission/observation considered. Management of patient was discussed with the following: Hospitalist: DR POOLE. I considered the following discharge prescriptions or medication management in the emergency department Medications were administered in the Emergency Department. See MAR. Independent interpretation of the following test(s) in the Emergency Department EKG: See my EKG interpretation above. Test considered but Not performed: Ultrasound NO RENAL USG. Historians other than the Patient: PT WELLL INFORMED. Care significantly affected by the following chronic conditions: Hypertension, Obesity, Chronic Kidney Disease, GOUT, HIGH LIPIDS, SICKLE CELL TRAIT. Counseling: I had a detailed discussion with the patient and/or guardian regarding the historical points, exam findings, and any diagnostic results supporting the discharge/admit diagnosis, lab results, radiology results, the need for further work-up and treatment in the hospital. 08/06 16:08 Order name: CBC with Diff; Complete Time: 18:[address] [facility] 08/06 16:08 Order name: Comprehensive Metabolic Panel; Complete Time: 18:[address] [facility] 08/06 18:10 Order name: LFT's; Complete Time: 20:[address] [facility] 08/06 18:10 Order name: Magnesium; Complete Time: 20:[address] [facility] 08/06 18:10 Order name: NT PRO-BNP; Complete Time: 20:[address] [facility] 08/06 18:10 Order name: PT-INR; Complete Time: 20:[address] [facility] 08/06 18:10 Order name: Troponin HS; Complete Time: 20:[address] [facility] 08/06 18:31 Order name: Potassium; Complete Time: 20:26 08/06 19:06 Order name: Urinalysis w/ reflexes EDUT 08/06 19:06 Order name: CBC with Automated Diff EDMS 08/06 19:06 Order name: CBC with Automated Diff EDMS 08/06 19:06 Order name: Comprehensive Metabolic Panel EDUT 08/06 19:06 Order name: Comprehensive Metabolic Panel EDUT 08/06 19:06 Order name: Magnesium EDMS 08/06 19:06 Order name: Magnesium EDMS 08/06 19:06 Order name: Phosphorus EDUT 08/06 19:06 Order name: Phosphorus EDMS 08/06 21:19 Order name: BMP: stat , call dr peña with results [facility] 08/06 21:19 Order name: Uric Acid [facility] 08/06 16:08 Order name: US Extremity Venous W Compression Manjeet; Complete Time: 17:[address] [facility] 08/06 16:56 Order name: CT Lumbar Spine Wo Con; Complete Time: 20:[address] [facility] 08/06 18:10 Order name: XRAY Chest (1 view); Complete Time: 20:[address] [facility] 08/07 09:18 Order name: MRI EDUT 08/06 18:21 Order name: EKG; Complete Time: 18:21 bd 08/06 19:06 Order name: CONS Physician Consult EDUT 08/06 18:10 Order name: Cardiac monitoring; Complete Time: 18:[address] [facility] 08/06 18:10 Order name: EKG - Nurse/Tech; Complete Time: 18:[address] [facility] 08/06 18:10 Order name: IV Saline Lock; Complete Time: 18:[address] [facility] 08/06 18:10 Order name: Labs collected and sent; Complete Time: 18:[address] [facility] 08/06 18:10 Order name: O2 Per Protocol; Complete Time: 18:[address] [facility] 08/06 18:10 Order name: O2 Sat Monitoring; Complete Time: 18:[address] [facility] EC:45 Rate is 76 beats/min. Rhythm is regular. QRS [place] is Normal. ND interval is normal. QRS aundrea interval is normal. QT interval is normal. No Q waves. T waves are Inverted in leads II, III, aVF, V4, V5, V6. No ST changes noted. Clinical impression: NSR w/ Non-specific ST/T Changes. Interpreted by me. Reviewed by me. Administered Medications: 17:56 Drug: NS 0.9% IV 500 ml 500 ml IV at 1 bolus once; to be given as a bolus over 30 jb4 minutes Volume: 500 ml; Route: IV; Rate: 1 bolus; Site: left antecubital; 08/07 06:48 Follow up: Response: No adverse reaction; IV Status: Completed infusion; IV Intake: al5 500ml 08/06 17:56 Drug: Decadron - Dexamethasone IVP 10 mg IVP once Route: IVP; Site: left antecubital; jb4 08/07 06:48 Follow up: Response: No adverse reaction al5 08/06 17:56 Drug: morphine IVP or IV 2 mg IVP once over 4 mins Route: IVP; Infused Over: 4 mins; jb4 Site: left antecubital; 08/07 06:48 Follow up: Response: No adverse reaction; Pain is decreased al5 08/06 17:56 Drug: morphine IVP or IV 2 mg IVP once over 4 mins Route: IVP; Infused Over: 4 mins; jb4 Site: left antecubital; 08/07 06:48 Follow up: Response: No adverse reaction; Pain is decreased al5 08/06 17:56 Drug: Ondansetron IVP 4 mg IVP once; over 2 minutes Route: IVP; Site: left antecubital; [facility] 08/07 06:49 Follow up: Response: No adverse reaction; Nausea is decreased al5 08/06 19:10 Drug: Albuterol Inhalation 7.5 mg Inhalation once Route: Inhalation; 4 19:10 Drug: Furosemide IVP 60 mg IVP once; give over 2 minutes Route: IVP; Site: left forearm;[facility] 08/07 06:50 Follow up: Response: No adverse reaction al5 08/06 19:11 Drug: Sodium Bicarbonate IVP 1 amp IVP once; (50 mL); equals 50 mEq Route: IVP; Site: [facility] left forearm; 08/07 06:49 Follow up: Response: No adverse reaction al5 08/06 19:11 Drug: D50W IVP 50 ml IVP once; (1 amp) Route: IVP; Site: left forearm; [facility] 08/07 06:49 Follow up: Response: No adverse reaction al5 08/06 19:12 Drug: Calcium Gluconate IVPB 1 grams IVPB once over 15 mins; (mix in NS 100 mL) Route: [facility] IVPB; Infused Over: 15 mins; Site: left forearm; 08/07 06:49 Follow up: Response: No adverse reaction; IV Status: Completed infusion; IV Intake: al5 100ml 08/06 19:12 Drug: Insulin Regular Human IVP 10 units IVP once {Co-Signature: [email or web address] (Madonna Palencia jb4 RN).} Route: IVP; Site: left antecubital; 08/07 06:49 Follow up: Response: No adverse reaction al5 08/06 19:54 Drug: Kayexalate PO 45 grams PO once Route: PO; [facility] 08/07 06:50 Follow up: Response: No adverse reaction al5 Disposition Summary: 08/06/24 18:16 Hospitalization Ordered Notes: Hospitalization Status: Inpatient Admission aundrea Provider: Eh Poole cha Condition: Fair aundrea Problem: new aundrea Symptoms: have improved aundrea Bed/Room Type: Standard aundrea Location: Telemetry/MedSurg (observation)(08/07/24 12:32) bc6 Room Assignment: [facility](08/07/24 12:32) bc6 Diagnosis - Acute kidney failure, unspecified - ON CHRONIC aundrea - Hyperkalemia aundrea - Pain in left leg aundrea - Obesity, unspecified aundrea Discharge Instructions: - Discharge Summary Sheet aundrea - Obesity, Adult aundrea - Sciatica aundrea - Sciatica, [id number] aundrea - Obesity, Adult, [id number] aundrea Forms: - Medication Reconciliation Form aundrea - SBAR form aundrea - Leadership Thank You Letter aundrea Prescriptions: - acetaminophen-codeine 300-30 mg Oral tablet - take 2 tablet ORAL route every 6 hours as needed for pain; 20 tablet; Refills: aundrea 0, Product Selection Permitted - dexamethasone 4 mg Oral tablet - take 1 tablet ORAL route daily; 4 tablet; Refills: 0, Product Selection aundrea Permitted Critical care time excluding procedures: 08/06 18:44 Critical care time: Bedside Care: 30 minutes, Consultation: 15 minutes, Family aundrea Intervention: 10 minutes. Total time: 55 minutes Signatures: Dispatcher [employer] EDTashia Graf RN RN kl Anderson, Corey, MD MD cha Bryson, James, RN RN jb4 Stefani Boles RN RN lg3 Feroz Bowen RN RN ll1 Theresa Martinez6 Madonna Palencia RN al5 Madonna Palencia RN al5 Corrections: (The following items were deleted from the chart) 16:08 16:08 Extrem Venous W Compression Manjeet+US.RAD.BRZ ordered. EDMS EDMS 18:10 18:10 HEPATIC FUNCTION+C.LAB.BRZ ordered. EDMS EDMS 18:10 18:10 MAGNESIUM+C.LAB.BRZ ordered. EDMS EDMS 18:10 18:10 PROBNP+C.LAB.BRZ ordered. EDMS EDMS 18:10 18:10 PROTIME (+INR)+COAG.LAB.BRZ ordered. EDMS EDMS 18:10 18:10 Troponin High Sensitivity+C.LAB.BRZ ordered. EDMS EDMS 18:11 18:11 Chest Single View+RAD.RAD.BRZ ordered. EDMS EDMS 18:31 18:31 POTASSIUM+C.LAB.BRZ ordered. EDMS EDMS 19:46 18:14 Tesfaye ordered. aundrea jb4 21:10 18:16 aundrea kl 21:21 18:16 Telemetry/MedSurg (Inpatient) aundrea lg3 21:21 21:10 211 kl lg3 08/07 21:21 [facility] ER HOLD lg3 bc6 08/07 21:21 ERHOLD- lg3 bc6
--- NOTE | 2024-08-06 18:17 | ER ---
Nurse's Notes [facility] [place] Name: Sergio Otero Age: 63 yrs Sex: Female : 1960 Arrival Date: 08/06/2024 Time: 15:37 Bed 16 Private MD: Diagnosis: Acute kidney failure, unspecified-ON CHRONIC;Hyperkalemia;Pain in left leg;Obesity, unspecified Presentation: 08/06 15:48 Chief complaint: Patient states: Posterior L knee area pain off/on for 2 days. States L ll1 leg will get painful, numb, and then she cant move it well for about 30 minutes at a time. Happened once yesterday and once today. Coronavirus screen: Client denies travel out of the [place] in the last 14 days. congestion. Ebola Screen: Patient denies travel to an Ebola-affected area in the 21 days before illness onset. Initial Sepsis Screen: Does the patient meet any 2 criteria? No. Patient's initial sepsis screen is negative. Does the patient have a suspected source of infection? No. Patient's initial sepsis screen is negative. Risk Assessment: Do you want to hurt yourself or someone else? Patient reports no desire to harm self or others. Onset of symptoms was August 05, 2024. 15:48 Method Of Arrival: Wheelchair ll1 15:48 Acuity: SIMONE 3 ll1 Triage Assessment: 15:48 General: Appears uncomfortable, Behavior is calm, cooperative, appropriate for age. ll1 Pain: Complains of pain in left leg Quality of pain is described as aching. Neuro: Reports weakness in left leg. Musculoskeletal: Reports pain in L posterior knee area. Historical: - Allergies: 15:43 No Known Drug Allergies; ll1 - PMHx: 15:43 Gout; Hyperlipidemia; Hypertension; kidney function is low; Sickle Cell Trait; ll1 - PSHx: 15:43 section; foot; Shoulder (Gout); ll1 15:47 adrenal gland removed; ll1 - Immunization history:: Adult Immunizations up to date. - Infectious Disease History:: Denies. - Social history:: Smoking status: Patient denies any tobacco usage or history of. - Family history:: not pertinent. Screenin:00 [facility] ED Fall Risk Assessment (Adult) History of falling in the last 3 months, jb4 including since admission No falls in past 3 months (0 pts) Confusion or Disorientation No (0 pts) Intoxicated or Sedated No (0 pts) Impaired Gait No (0 pts) Mobility Assist Device Used No (0 pt) Altered Elimination No (0 pt) Score/Fall Risk Level 0 - 2 = Low Risk Oriented to surroundings, Maintained a safe environment. Abuse screen: Denies threats or abuse. Nutritional screening: No deficits noted. Tuberculosis screening: No symptoms or risk factors identified. Assessment: 16:00 General: Appears in no apparent distress. comfortable, Behavior is calm, cooperative, jb4 appropriate for age. Pain: Complains of pain in posterior aspect of left knee Pain does not radiate. Pain currently is 7 out of 10 on a pain scale. Neuro: Level of Consciousness is awake, alert, obeys commands, Oriented to person, place, time, situation. Cardiovascular: Patient's skin is warm and dry. Respiratory: Airway is patent Respiratory effort is even, unlabored, Respiratory pattern is regular, symmetrical. GI: No signs and/or symptoms were reported involving the gastrointestinal system. : No signs and/or symptoms were reported regarding the genitourinary system. EENT: No signs and/or symptoms were reported regarding the EENT system. Derm: Skin is intact, Skin is dry, Skin is normal, Skin temperature is warm. 17:00 Reassessment: Patient appears in no apparent distress at this time. Patient and/or jb4 family updated on plan of care and expected duration. Pain level reassessed. Patient is alert, oriented x 3, equal unlabored respirations, skin warm/dry/pink. 18:00 Reassessment: Patient appears in no apparent distress at this time. Patient and/or jb4 family updated on plan of care and expected duration. Pain level reassessed. Patient is alert, oriented x 3, equal unlabored respirations, skin warm/dry/pink. 19:00 Reassessment: Patient appears in no apparent distress at this time. Patient and/or jb4 family updated on plan of care and expected duration. Pain level reassessed. Patient is alert, oriented x 3, equal unlabored respirations, skin warm/dry/pink. 20:00 Reassessment: Patient appears in no apparent distress at this time. Patient and/or jb4 family updated on plan of care and expected duration. Pain level reassessed. Patient is alert, oriented x 3, equal unlabored respirations, skin warm/dry/pink. 21:00 Reassessment: Patient appears in no apparent distress at this time. Patient and/or jb4 family updated on plan of care and expected duration. Pain level reassessed. Patient is alert, oriented x 3, equal unlabored respirations, skin warm/dry/pink. 22:00 Reassessment: Patient appears in no apparent distress at this time. Patient and/or jb4 family updated on plan of care and expected duration. Pain level reassessed. Patient is alert, oriented x 3, equal unlabored respirations, skin warm/dry/pink. 08/07 00:45 Reassessment: Report Given to AMBER Peacock. 4 Vital Signs: 08/06 15:48 BP 139 / 70; Pulse 83; Resp 17; Temp 97.6; Pulse Ox 100% ; Weight 108.86 kg; Height 5 ll1 ft. 6 in. ; Pain 7/10; 18:00 BP 120 / 70; Pulse 79; Resp 16; Pulse Ox 100% on R/A; jb4 22:32 BP 120 / 82; Pulse 92; Resp 16; Pulse Ox 100% on R/A; jb4 15:48 Body Mass Index 38.74 (108.86 kg, 167.64 cm) ll1 15:48 Pain Scale: Adult ll1 ED Course: 15:38 Patient arrived in ED. ra3 15:42 Arm band placed on. ll1 15:50 Triage completed. ll1 16:00 Patient has correct armband on for positive identification. Bed in low position. Call jb4 light in reach. Side rails up X 1. Provided Education on: plan of care. 16:01 Eugenio Sanchez MD is Attending Physician. aundrea 16:15 Patient placed in an exam room, on a stretcher. ll1 16:52 US Extremity Venous W Compression Manjeet In Process Unspecified. EDMS 18:15 Eh Poole MD is Hospitalizing Provider. aundrea 18:18 CT Lumbar Spine Wo Con In Process Unspecified. EDMS 18:39 XRAY Chest (1 view) In Process Unspecified. EDMS 18:44 Accessed peripheral vein via ultrasound, utilizing dynamic ultrasound technique Blood cm10 collected. Clean \T\ dry. Dressing intact. Good blood return. Flushes easily. 20g Right forearm. 18:54 Troponin HS Sent. jb4 18:55 Potassium Sent. jb4 18:55 NT PRO-BNP Sent. jb4 18:55 PT-INR Sent. jb4 18:55 Magnesium Sent. jb4 18:55 LFT's Sent. jb4 22:43 Jose Luis Alatorre, RN is Primary Nurse. jb4 22:47 No provider procedures requiring assistance completed. Patient admitted, IV remains in jb4 place. Administered Medications: 17:56 Drug: NS 0.9% IV 500 ml 500 ml IV at 1 bolus once; to be given as a bolus over 30 jb4 minutes Volume: 500 ml; Route: IV; Rate: 1 bolus; Site: left antecubital; 08/07 06:48 Follow up: Response: No adverse reaction; IV Status: Completed infusion; IV Intake: al5 500ml 08/06 17:56 Drug: Decadron - Dexamethasone IVP 10 mg IVP once Route: IVP; Site: left antecubital; 4 08/07 06:48 Follow up: Response: No adverse reaction al5 08/06 17:56 Drug: morphine IVP or IV 2 mg IVP once over 4 mins Route: IVP; Infused Over: 4 mins; 4 Site: left antecubital; 08/07 06:48 Follow up: Response: No adverse reaction; Pain is decreased al5 08/06 17:56 Drug: morphine IVP or IV 2 mg IVP once over 4 mins Route: IVP; Infused Over: 4 mins; 4 Site: left antecubital; 08/07 06:48 Follow up: Response: No adverse reaction; Pain is decreased al5 08/06 17:56 Drug: Ondansetron IVP 4 mg IVP once; over 2 minutes Route: IVP; Site: left antecubital; jb4 08/07 06:49 Follow up: Response: No adverse reaction; Nausea is decreased al5 08/06 19:10 Drug: Albuterol Inhalation 7.5 mg Inhalation once Route: Inhalation; jb4 19:10 Drug: Furosemide IVP 60 mg IVP once; give over 2 minutes Route: IVP; Site: left forearm;jb4 08/07 06:50 Follow up: Response: No adverse reaction al5 08/06 19:11 Drug: Sodium Bicarbonate IVP 1 amp IVP once; (50 mL); equals 50 mEq Route: IVP; Site: [facility] left forearm; 08/07 06:49 Follow up: Response: No adverse reaction al5 08/06 19:11 Drug: D50W IVP 50 ml IVP once; (1 amp) Route: IVP; Site: left forearm; jb4 08/07 06:49 Follow up: Response: No adverse reaction al5 08/06 19:12 Drug: Calcium Gluconate IVPB 1 grams IVPB once over 15 mins; (mix in NS 100 mL) Route: jb4 IVPB; Infused Over: 15 mins; Site: left forearm; 08/07 06:49 Follow up: Response: No adverse reaction; IV Status: Completed infusion; IV Intake: al5 100ml 08/06 19:12 Drug: Insulin Regular Human IVP 10 units IVP once {Co-Signature: al[place] (Madonna Palencia RN).} Route: IVP; Site: left antecubital; 08/07 06:49 Follow up: Response: No adverse reaction al5 08/06 19:54 Drug: Kayexalate PO 45 grams PO once Route: PO; 4 08/07 06:50 Follow up: Response: No adverse reaction al5 Medication: 06:45 VIS not applicable for this client. al5 Intake: 06:48 IV: 500ml; Total: 500ml. al5 06:49 IV: 100ml; Total: 600ml. al5 Outcome: 08/06 18:16 Decision to Hospitalize by Provider. aundrea 22:47 Admitted to ER Hold. Please see [facility] for further documentation. jb4 22:47 Condition: stable 22:47 Discharge instructions given to patient, Instructed on the need for admit, Demonstrated understanding of instructions, 08/07 13:35 Patient left the ED. db Signatures: Dispatcher [employer] Eugenio Coughlin MD MD cha Bryson, James, RN RN jb4 Feroz Bowen RN RN ll1 Kalli Leiva RN RN db Maite Avila RN RN cm10 Ya Doran 3 Madonna Palencia RN RN al5 Madonna Palencia RN
--- NOTE | 2024-08-06 18:26 | RAD REPORT ---
EXAMINATION: CT LUMBAR SPINE WITHOUT CONTRAST CLINICAL INDICATION: Female, 63 years old. PAIN TECHNIQUE: Axial CT images were obtained through the lumbar spine in soft tissue and bone windows wit hout intravenous contrast. Coronal and Sagittal reformatted images were created from the data set. One or more of the following dose reduction techniques were used: Automated exposure control, adjustm ent of the mA and/ or kV according to patient size, and/or iterative reconstruction. Unless otherwise specified, incidental findings do not require dedicated imaging follow-up. COMPARISON: No prior exam. FINDINGS: For purposes of this dictation, it is assumed that there are 5 non rib-bearing lumbar type vertebrae, and the most caudal fully segmented lumbar vertebra is labeled L5. ALIGNMENT: Mild anterolisthesis of L3 on 4 seen. BONES: No significant soft tissue abnormalities. No aggressive osseous lesions. DISCS: Intervertebral disc space heights are maintained. LEVELS: Prominent lower lumbar spine facet hypertrophy spanning L3-4, L4-5 and L5-S1 bilaterally. Thi s results in moderate central canal stenosis at the L3-4 level. SOFT TISSUE: No soft tissue abnormalities. IMPRESSION: No acute lumbar spine abnormalities. Moderate central canal stenosis suspected at L3-4 caused by spondylosis as described above.
[2024-08-06] MEDS ORDERED: INSULIN REGULAR (HUMAN) 100 UNIT/ML ONE (18:40)
[2024-08-06] MEDS ORDERED: ALBUTEROL 2.5 MG/3 ML NEB SOL ONE (18:40)
[2024-08-06] MEDS ORDERED: FUROSEMIDE 40 MG/4 ML VIAL ONE (18:40)
[2024-08-06] MEDS ORDERED: FUROSEMIDE 20 MG/ 2ML VIAL ONE (18:40)
[2024-08-06] MEDS ORDERED: CALCIUM GLUCONATE 1 GM IVPB 1 GM/50 ML BAG IV ONE (18:41)
[2024-08-06] MEDS ORDERED: D50W 25 GM/50 ML SYRINGE IV ONE (18:42)
[2024-08-06] MEDS ORDERED: SOD POLYSTYREN SUL 15 GM/60 ML UCUP ONE (18:42)
--- NOTE | 2024-08-06 18:43 | RAD REPORT ---
EXAMINATION: ONE VIEW CHEST XR CLINICAL INDICATION: COUGH TECHNIQUE: Frontal chest projection is submitted. Examination is limited by patient positioning and t echnique. COMPARISON: No prior exam. FINDINGS: The lungs are well inflated and clear. The heart is normal in size. No displaced fractures identified . IMPRESSION: No acute intrathoracic abnormalities.
[2024-08-06] MEDS: SODIUM ZIRCONIUM CYCLOSILICATE 10 GM/PKT PO ONE (18:46)
[2024-08-06] MEDS ORDERED: ONDANSETRON 4 MG/2 ML VIAL IV PRN (19:00)
[2024-08-06] MEDS ORDERED: ACETAMINOPHEN 325 MG TABLET PO PRN (19:00)
--- NOTE | 2024-08-06 19:00 | P.HP ---
Certification for Inpatient Patient admitted to: Inpatient With expected LOS: >2 Midnights Practitioner: I am a practitioner with admitting privileges, knowledge of patient current condition, hospital course, and medical plan of care. Services: Services provided to patient in accordance with Admission requirements found in Title 42 Section 412.3 of the Code of Federal Regulations Patient History Date of Service: 08/06/24 Reason for admission: Back Pain / Difficulty in walking History of Present Illness: 63 yrs old Female with past medical history of hypertension, hyperlipidemia, gout, sickle cell trait, CKD stage 2, was brought to ER with left leg numbness and generalized weakness and difficulty in ambulating which has been progressively getting worse for the last 1 week and has been worse today and was brought to ER. Patient denies any trauma. No history of any fall. Patient states that she has low back pain especially on the left side, symptoms are a ggravated with movements, denies any headache. No fever or chills. No nausea vomiting or diarrhea. Patient was assessed in the ER and was admitted for further management of hyperkalemia and acute kidney injury and lower back pain Allergies No Known Drug Allergies Allergy (Verified 12/06/16 11:34) Unknown No Known Allergies Allergy (Uncoded 01/23/17 11:14) Unknown Home medications list reviewed: Yes Home Medications: Ferrous Sulfate [Ferrous Sulfate*] 65 mg PO BID 11/22/13 Losartan Potassium [Cozaar] 50 mg PO DAILY 11/22/13 Pravastatin [Pravachol*] 40 mg PO BEDTIME 11/22/13 Furosemide [Lasix*] 20 mg PO DAILY 11/14/14 Lactobacillus Acidophilus [Acidophilus] 5 mg PO DAILY 11/14/14 Acetaminophen [Tylenol Extra Strength] 500 mg PO Q6H PRN 12/06/16 Pantoprazole [Protonix Tab*] 40 mg PO DAILY 05/09/23 - Past Medical/Surgical History Diabetic: No Past Medical History: Reviewed- Non-Contributory -: HTN -: Hyprlipidemia -: Macular degeneration -: Anemia -: Sickle cell trait -: glaucoma -: CKD 3 Past Surgical History: Reviewed- Non-Contributory -: -: Lt adenal gland removed -: Varicose vein sx -: Lt rotator cuff -: cyst removal to boith feet -: knee sx, fluid removal - Family History Mother -: Heart disease, Hypertension - Social History Smoking Status: Never smoker Alcohol use: No CD- Drugs: No Caffeine use: Yes Review of Systems 10-point ROS is otherwise unremarkable Physical Examination - Vital Signs Temperature: 98.2 F Blood Pressure: 166/78 Pulse: 76 Respirations: 18 Pulse Ox (%): 94 - Physical Exam General: Alert, Oriented x3, Cooperative, Mild distress, Obese HEENT: Atraumatic, Normocephalic Neck: Supple Respiratory: Clear to auscultation bilaterally, Normal air movement Cardiovascular: Regular rate/rhythm, Normal S1 S2 Capillary refill: <2 Seconds Gastrointestinal: Soft and benign, Non-distended Musculoskeletal: No clubbing, No swelling, Tenderness Integumentary: No rashes, No breakdown Neurological: Normal speech, Cranial nerves 3-12 intact, Abnormal gait, Abnormal strength Lymphatics: No axilla or inguinal lymphadenopathy - Studies Laboratory Data (last 24 hrs) 08/06/24 08/06/24 17:30 17:30 WBC 12.90 H Hgb 11.3 L Hct 33.6 L Plt Count 312 Sodium 132 L Potassium 7.7 H* BUN 51 H Creatinine 3.61 H Glucose 88 Total Bilirubin 0.3 AST 14 L ALT 25 Alkaline Phosphatase 77 Assessment and Plan - Plan Hyperkalemia Antihyperkalemic measures Started on Lokelma Monitor closely under telemetry Nephrology consulted Hypertension Antihypertensives titrated Continue home medications and titrate as needed Hyperlipidemia Continue statin ANILA on CKD stage II Monitor renal parameters Electrolytes monitor and replace accordingly Nephrology consult Sodium bicarbonate drip Lumbar radiculopathy CT findings noted Started on gabapentin Anti-inflammatory Needs follow-up with spinal surgeon GI/DVT prophylaxis Advanced directive full code Discharge Plan: Home Plan to discharge in: 48 Hours - Advance Directives Does patient have a Living Will: No Does patient have a Durable POA for Healthcare: No - Code Status/Comfort Care Code Status: Full Code Time Spent Managing Pts Care (In Minutes): 48
[2024-08-06 19:05] LABS: PT Prothrombin Time 11.1 SECONDS (9.4-12.5); Protime INR 0.99
[2024-08-06] MEDS ORDERED: HYDROCODONE/APAP 5/325 MG TAB PO PRN (19:05)
[2024-08-06] MEDS ORDERED: MORPHINE 2 MG/ML SYR IV PRN (19:05)
[2024-08-06 19:27] LABS: ALT/SGPT 27 U/L (13-56); AST/SGOT 13 U/L (15-37); Albumin/Globulin Ratio 0.9 (1.1-1.8); Alkaline Phosphatase 78 U/L (45-117); Bilirubin Total 0.2 mg/dL (0.2-1.0); Globulin 4.6 g/dL (2.3-3.5); Magnesium 2.2 mg/dL (1.6-2.4); NT PRO-BNP 21 pg/mL (<125); Protein, Total 8.6 g/dL (6.4-8.2); Troponin High Sensitivity 14.2 pg/mL (<58.9)
[2024-08-06 19:28] LABS: Bilirubin Direct < 0.2 mg/dL (0-0.2)
[2024-08-06] MEDS: WATER FOR INJ,STERILE 1,000 ML with NA BICARB 8.4% 100 MEQ IV SCH (20:00)
[2024-08-06] MEDS ORDERED: SODIUM BICARB 50 MEQ/50ML VIAL ONE (20:49)
[2024-08-06] MEDS ORDERED: NACHLORIDE 0.45% 0 ML IV ONE (20:49)
[2024-08-06] MEDS: D5W 1,000 ML with NA BICARB 8.4% 100 MEQ IV SCH (21:00)
[2024-08-06] MEDS ORDERED: D5W 1,000 ML IV ONE (21:08)
[2024-08-06] MEDS: HEPARIN 5000 UNIT/ML 1 ML VIAL SQ SCH (21:55)
[2024-08-06] MEDS ORDERED: HYDRALAZINE HCL 20 MG/ML VIAL IV PRN (22:10)
[2024-08-07 07:37] LABS: Absolute Basophils 0.1 K/uL (0-0.5); Absolute Lymphocytes (CBC) 1.3 K/uL (0.7-4.9); Absolute Monocytes 0.5 K/uL (0.1-1.3); Basophils % 0.5 % (0-1.3); Hematocrit 30.7 % (36.0-45.0); Hemoglobin 10.5 g/dL (12.0-15.0); Lymphocytes % 10.7 % (15.3-44.8); MCHC 34.3 g/dL (32.0-36.0); MCV 90.3 fL (80-100); MPV 10.3 fL (7.6-11.3); Monocytes % 4.1 % (3.3-12.3); Neutrophils % 84.7 % (41.7-73.7); Nucleated Red Blood Cells % 0.1 % (0-0); Platelets 296 thou/uL (152-406); Red Cell Distribution Width 15.5 % (12.1-15.2)
[2024-08-07] MEDS ORDERED: LORazepam 2 MG/ML VIAL ONE (07:44)
[2024-08-07] MEDS: LORazepam 2 MG/ML VIAL IV ONE (07:45)
[2024-08-07 07:52] LABS: ALT/SGPT 22 U/L (13-56); AST/SGOT < 10 U/L (15-37); Albumin 3.6 g/dL (3.4-5.0); Albumin/Globulin Ratio 0.8 (1.1-1.8); Alkaline Phosphatase 72 U/L (45-117); Anion Gap 11.6 mEq/L (5.0-15.0); BUN Blood Urea Nitrogen 51 mg/dL (7-18); Bicarbonate 21 mEq/L (21-32); Bilirubin Total 0.4 mg/dL (0.2-1.0); Globulin 4.3 g/dL (2.3-3.5); Glomerular Filtration Rate 15 ml/min (=/>90); Glucose Level 126 mg/dL (74-106); Magnesium 1.9 mg/dL (1.6-2.4); Phosphorus 3.7 mg/dL (2.5-4.9); Protein, Total 7.9 g/dL (6.4-8.2); Sodium Level 135 mEq/L (136-145)
[2024-08-07 07:53] LABS: Potassium 6.6 mEq/L (3.5-5.1)
[2024-08-07] MEDS: GABAPENTIN 100 MG CAP PO SCH (09:00)
--- NOTE | 2024-08-07 09:18 | RAD REPORT ---
EXAMINATION: MRI LUMBAR SPINE WITHOUT CONTRAST CLINICAL INDICATION: Female, 63 years old. [facility] MAIN N PAIN TECHNIQUE: Multiplanar multisequence MR images were obtained of the lumbar spine without intravenous contrast. Unless otherwise specified, incidental findings do not require dedicated imaging follow-up. [id number]. COMPARISON: CT lumbar spine 08/06/2024. FINDINGS: For purposes of this dictation, it is assumed that there are 5 non rib-bearing lumbar type vertebrae, and the most caudal fully segmented lumbar vertebra is labeled L5. ALIGNMENT: Grade 1 anterolisthesis of L3 over L4 and L4 over L5, measuring up to 5 mm. No significant scoliosis. BONE: Vertebral bodies are normal in height. There is a normal marrow signal pattern. Facet and endpl ate remodeling, more pronounced at the lower levels, contributes to the findings below CORD: No abnormal signal in the cord. The conus medullaris terminates at a normal level. The nerve ro ots of the cauda equina appear normal although they demonstrate some mild crowding within the right dorsal aspect of the thecal sac above L3-4 level, which may be related to the degree of canal stenosi s at that level. SOFT TISSUE: The included paraspinal soft tissues and retroperitoneal structures are grossly normal. Colonic diverticulosis. EVALUATION OF THE INDIVIDUAL LEVELS: L1-2: Broad-based posterior disc bulge. No significant central canal stenosis. Mild bilateral neural foraminal narrowing. L2-3: Broad-based posterior disc bulge. Trace left facet effusion. No significant central canal steno sis. Mild bilateral neural foraminal narrowing. L3-4: Mild disc height loss. Broad-based posterior disc bulge with uncovering of the superior disc ma rgin. Moderately pronounced ligamentum flavum buckling with trace bilateral facet effusions. Findings contribute to moderate central canal stenosis. Mild bilateral neural foraminal narrowing wor se on the right. L4-5: Broad-based posterior disc bulge with a left foraminal superimposed disc extrusion, where there is an associated focal annular hyperintensity. No significant central canal stenosis. Mild bilateral neural foraminal narrowing.. L5-S1: Advanced disc height loss with partial ankylosis anteriorly. Disc osteophyte complex centrally and along the left more than right subarticular and foraminal zones, which in addition to epidural fat prominence, contributes to mild effacement of the central canal. Mild bilateral neural foraminal narrowing. IMPRESSION: Moderate spondylosis lumbar spine changes as above, contributing to moderate central canal stenosis. Multilevel variable degrees of neural foraminal narrowing, predominantly mild.
--- NOTE | 2024-08-07 09:29 | P.CNS ---
Date of Consult: 08/07/24 Reason for Consult: ANILA/CKD Requesting Physician: merrick ospina Chief Complaint: Back Pain / Difficulty in walking History of Present Illness: 63 yrs old Female with past medical history of hypertension, hyperlipidemia, gou t, sickle cell trait, CKD stage 3, was brought to ER with left leg numbness and generalized weakness and difficulty in ambulating which has been progressively getting worse for the last 1 week and has been worse today and was brought to ER. Patient denies any trauma. No history of any fall. Patient states that she has low back pain especially on the left side, symptoms are aggravated with movements, denies any headache. No fever or chills. No nausea vomiting or diarrhea. Patient was assessed in the ER and was admitted for further management of hyperkalemia and acute kidney injury and lower back pain [id number] 17:30 This 63 yrs old Black Female presents to ER via Wheelchair with complaints of left leg aundrea numbness-trouble walking. 17:30 The patient presents with pain that is acute, and decreased range of motion, and an aundrea injury. The symptoms are located in the low back, lumbar area and left low back. The pain radiates to the lumbar area and left low back. The problem was sustained from unknown cause. Modifying factors: The patient symptoms are alleviated by remaining still, the patient symptoms are aggravated by any movement, movement, standing. Associated signs and symptoms: The patient has no apparent associated signs or symptoms. The patient presents with decreased range of motion. The complaints affect the left hamstring and posterior aspect of left knee. She denies NSAIDs. She denies any difficulty with urination. She reports eating lots of potatoes and drinking OJ. Allergies No Known Drug Allergies Allergy (Verified 12/06/16 11:34) Unknown No Known Allergies Allergy (Uncoded 01/23/17 11:14) Unknown Home medications list reviewed: Yes Home Medications: Ferrous Sulfate [Ferrous Sulfate*] 65 mg PO BID 11/22/13 Losartan Potassium [Cozaar] 50 mg PO DAILY 11/22/13 Pravastatin [Pravachol*] 40 mg PO BEDTIME 11/22/13 Furosemide [Lasix*] 20 mg PO DAILY 11/14/14 Lactobacillus Acidophilus [Acidophilus] 5 mg PO DAILY 11/14/14 Acetaminophen [Tylenol Extra Strength] 500 mg PO Q6H PRN 12/06/16 Pantoprazole [Protonix Tab*] 40 mg PO DAILY 05/09/23 - Past Medical/Surgical History Diabetic: No -: HTN -: HLD -: CKD IIIb (Dr. Hidalgo/ [facility]) -: Anemia -: Sickle cell trait -: Glaucoma -: Macular degeneration -: -: Lt adenal gland removed -: Varicose vein sx -: Lt rotator cuff -: cyst removal to boith feet -: knee sx, fluid removal - Family History Mother Medical History: Heart disease, Hypertension - Social History Smoking Status: Never smoker Alcohol use: No CD- Drugs: No Caffeine use: Yes Place of Residence: Home Review of Systems 10-point ROS is otherwise unremarkable General: Malaise Musculoskeletal: Back Pain Neurological: Weakness Physical Examination Temp Pulse Resp BP Pulse Ox 97.6 F 68 18 108/68 98 08/07/24 04:00 08/07/24 04:00 08/07/24 04:00 08/07/24 04:00 08/07/24 04:00 General: In no apparent distress, Oriented x3, Cooperative HEENT: Atraumatic Neck: Supple Respiratory: Clear to auscultation bilaterally Cardiovascular: No edema, Regular rate/rhythm Gastrointestinal: Soft and benign, Non-distended Musculoskeletal: No clubbing, No contractures Integumentary: No rashes, No cyanosis Neurological: Normal speech Laboratory Data (last 24 hrs) 08/06/24 08/06/24 08/06/24 18:51 18:40 18:40 WBC Hgb Hct Plt Count PT 11.1 INR 0.99 Sodium Potassium 7.0 H* BUN Creatinine Glucose Magnesium 2.2 Total Bilirubin 0.2 AST 13 L ALT 27 Alkaline Phosphatase 78 08/06/24 08/06/24 17:30 17:30 WBC 12.90 H Hgb 11.3 L Hct 33.6 L Plt Count 312 PT INR Sodium 132 L Potassium 7.7 H* BUN 51 H Creatinine 3.61 H Glucose 88 Magnesium Total Bilirubin 0.3 AST 14 L ALT 25 Alkaline Phosphatase 77 Imagings Data: [id number] EXAMINATION: ONE VIEW CHEST XR CLINICAL INDICATION: COUGH TECHNIQUE: Frontal chest projection is submitted. Examination is limited by patient positioning and technique. COMPARISON: No prior exam. FINDINGS: The lungs are well inflated and clear. The heart is normal in size. No displaced fractures identified. IMPRESSION: No acute intrathoracic abnormalities. [id number] EXAMINATION: US BILATERAL LOWER EXTREMITY VENOUS DOPPLER CLINICAL INDICATION: PAIN TECHNIQUE: Complete bilateral duplex sonography of the BILATERAL lower extremity veins was performed. The examination included compression for vein patency, color Doppler imaging and flow augmentation in response to distal compression of the distal external iliac, common femoral, femoral, popliteal, tibial, and great and small saphenous veins. COMPARISON: No prior exam. FINDINGS: Duplex sonography testing of the veins of the BILATERAL lower extremity was performed. Color flow imaging shows all veins to be compressible with [id number] color filling. Pulsatile and phasic flow is present within all lower extremity deep and superficial veins examined. IMPRESSION: There is no deep vein or superficial vein thrombosis. [id number] EXAMINATION: MRI LUMBAR SPINE WITHOUT CONTRAST CLINICAL INDICATION: Female, 63 years old. [facility] MAIN N PAIN TECHNIQUE: Multiplanar multisequence MR images were obtained of the lumbar spine without intravenous contrast. Unless otherwise specified, incidental findings do not require dedicated imaging follow-up. [id number]. COMPARISON: CT lumbar spine 08/06/2024. FINDINGS: For purposes of this dictation, it is assumed that there are 5 non rib-bearing lumbar type vertebrae, and the most caudal fully segmented lumbar vertebra is labeled L5. ALIGNMENT: Grade 1 anterolisthesis of L3 over L4 and L4 over L5, measuring up to 5 mm. No significant scoliosis. BONE: Vertebral bodies are normal in height. There is a normal marrow signal pattern. Facet and endplate remodeling, more pronounced at the lower levels, contributes to the findings below CORD: No abnormal signal in the cord. The conus medullaris terminates at a normal level. The nerve roots of the cauda equina appear normal although they demonstrate some mild crowding within the right dorsal aspect of the thecal sac above L3-4 level, which may be related to the degree of canal stenosis at that level. SOFT TISSUE: The included paraspinal soft tissues and retroperitoneal structures are grossly normal. Colonic diverticulosis. EVALUATION OF THE INDIVIDUAL LEVELS: L1-2: Broad-based posterior disc bulge. No significant central canal stenosis. Mild bilateral neural foraminal narrowing. L2-3: Broad-based posterior disc bulge. Trace left facet effusion. No significant central canal stenosis. Mild bilateral neural foraminal narrowing. L3-4: Mild disc height loss. Broad-based posterior disc bulge with uncovering of the superior disc margin. Moderately pronounced ligamentum flavum buckling with trace bilateral facet effusions. Findings contribute to moderate central canal stenosis. Mild bilateral neural foraminal narrowing worse on the right. L4-5: Broad-based posterior disc bulge with a left foraminal superimposed disc extrusion, where there is an associated focal annular hyperintensity. No significant central canal stenosis. Mild bilateral neural foraminal narrowing.. L5-S1: Advanced disc height loss with partial ankylosis anteriorly. Disc osteophyte complex centrally and along the left more than right subarticular and foraminal zones, which in addition to epidural fat prominence, contributes to mild effacement of the central canal. Mild bilateral neural foraminal narrowing. IMPRESSION: Moderate spondylosis lumbar spine changes as above, contributing to moderate central canal stenosis. Multilevel variable degrees of neural foraminal narrowing, predominantly mild. [id number] EXAMINATION: CT LUMBAR SPINE WITHOUT CONTRAST CLINICAL INDICATION: Female, 63 years old. PAIN TECHNIQUE: Axial CT images were obtained through the lumbar spine in soft tissue and bone windows without intravenous contrast. Coronal and Sagittal reformatted images were created from the data set. One or more of the following dose reduction techniques were used: Automated exposure control, adjustment of the mA and/ or kV according to patient size, and/or iterative reconstruction. Unless otherwise specified, incidental findings do not require dedicated imaging follow-up. COMPARISON: No prior exam. FINDINGS: For purposes of this dictation, it is assumed that there are 5 non rib-bearing lumbar type vertebrae, and the most caudal fully segmented lumbar vertebra is labeled L5. ALIGNMENT: Mild anterolisthesis of L3 on 4 seen. BONES: No significant soft tissue abnormalities. No aggressive osseous lesions. DISCS: Intervertebral disc space heights are maintained. LEVELS: Prominent lower lumbar spine facet hypertrophy spanning L3-4, L4-5 and L5-S1 bilaterally. This results in moderate central canal stenosis at the L3-4 level. SOFT TISSUE: No soft tissue abnormalities. IMPRESSION: No acute lumbar spine abnormalities. Moderate central canal stenosis suspected at L3-4 caused by spondylosis as described above. Conclusions/Impression: Stage I ANILA likely due to hypovolemia CKD IIIb with Proteinuria -No NSAIDs -Continue IVF Hyponatremia -Continue IVF -Repeat BMP pending Hyperkalemia -Kathrinkelma X3 today -Low potassium diet -Repeat BMP this evening -Hold KHALIDA/ARB NAG Metabolic Acidosis -Continue IVF with bicarb HTN with CKD, labile -Hold antihypertensives at this time Anemia in chronic illness/ CKD -Monitor H&H Hospitalist and ER notes reviewed Case reviewed with Dr. Ospina Thank you kindly for the consultation Patient care 45 min
[2024-08-07] MEDS ORDERED: HEPARIN 5000 UNIT/ML 1 ML VIAL ONE (09:45)
[2024-08-07] MEDS: SODIUM ZIRCONIUM CYCLOSILICATE 10 GM/PKT PO SCH (11:00)
--- NOTE | 2024-08-07 11:50 | EKG ---
Test Date: 2024-08-06 Test Time: 18:26:14 Inhalation Therapy Teacher: KATERINE MEASUREMENT RESULTS: Intervals: Rate: 76 MD: 140 QRSD: 76 QT: 324 QTc: 364 [place]: P: 5 MD: 140 QRS: 48 T: -50 INTERPRETIVE STATEMENTS: Normal sinus rhythm Nonspecific ST and T wave abnormality Abnormal ECG Compared to ECG 03/29/2024 14:21:29 ST (T wave) deviation now present T-wave abnormality no longer present Electronically Signed On 08-07-24 11:50:03 CDT by Geovanni Doran
[2024-08-07] MEDS ORDERED: FLU (Fluarix Triv) TS24-25(6MOS UP)/PF 45 MCG/0.5 ML Syringe IM ONE (16:00)
--- NOTE | 2024-08-07 16:18 | P.PN ---
Subjective Date of Service: 08/07/24 Chief Complaint: Back Pain / Difficulty in walking Patient presented with bilateral posterior thigh pain and difficulty with walking. She states her pain is better and she is able to move both legs better but has not walked yet. Patient noted to have severe hyperkalemia and giving hyperkalemia treatment in the ED. Potassium level is down to 6.6. Patient denies any shortness of breath or chest pain. Physical Examination - Vital Signs Temperature: 98 F Blood Pressure: 128/65 Pulse: 75 Respirations: 20 Pulse Ox (%): 98 - Studies Laboratory Data (last 24 hrs) 08/06/24 08/06/24 08/06/24 18:51 18:40 18:40 WBC Hgb Hct Plt Count PT 11.1 INR 0.99 Sodium Potassium 7.0 H* BUN Creatinine Glucose Magnesium 2.2 Total Bilirubin 0.2 AST 13 L ALT 27 Alkaline Phosphatase 78 08/06/24 08/06/24 17:30 17:30 WBC 12.90 H Hgb 11.3 L Hct 33.6 L Plt Count 312 PT INR Sodium 132 L Potassium 7.7 H* BUN 51 H Creatinine 3.61 H Glucose 88 Magnesium Total Bilirubin 0.3 AST 14 L ALT 25 Alkaline Phosphatase 77 Assessment And Plan - Plan Physical examination General: Alert and oriented x3, NAD, obese HEENT: Conjunctiva not pale, anicteric sclera Neck: Supple, no elevated JVD Heart: Heart sounds 1 and 2 normal, regular rhythm, normal rate, no pedal edema Lungs: Clear to auscultation bilaterally, adequate breath sounds bilaterally, no rhonchi or crackles. Abdomen: Soft, nondistended, nontender, normal bowel sounds. Extremities: No tenderness, no deformity Skin: Normal skin turgor, no rash, no nodules or ulcers. Neuro: No focal motor deficit. Normal speech. Straight leg raise positive on the left Psychiatry: Normal mood, no agitation. Assessment and plan Hyperkalemia Acute on chronic kidney disease stage III Metabolic acidosis Secondary to chronic kidney disease, losartan. Nephrology Dr. Sanchez is following Continue Antihyperkalemic measures Patient given Lokelma x 2. Continue bicarb drip Hyperkalemia is improving. Monitor renal function. Continue to monitor potassium level closely. Continue telemetry. Hypertension Patient is currently normotensive. Hold losartan. Hyperlipidemia Continue statin Lumbar radiculopathy CT findings noted Continue gabapentin Add steroid. Outpatient follow-up with spine surgeon. DVT prophylaxis: Heparin SQ Advanced directive: full code
[2024-08-07] MEDS ORDERED: PNEUMOCOCCAL VACCINE 0.5 ML IMVAC ONE (18:00)
[2024-08-07] MEDS: dexAMETHasone 4 MG TAB PO SCH (18:44)
[2024-08-07 19:28] LABS: Specific Gravity 1.011 (1.005-1.030); Sqamous Epithelial <5 /HPF (None Seen); Urine Bacteria None Seen /HPF (<20); Urine Bilirubin NEGATIVE (Negative); Urine Blood Negative (Negative); Urine Clarity Turbid (Clear); Urine Color Light-Yellow (Yellow); Urine Culture Reflex Order REFLEXED; Urine Glucose NEGATIVE (Negative); Urine Ketones NEGATIVE (Negative); Urine Microscopic Reflex YN ORDER UMIC; Urine Nitrite NEGATIVE (Negative); Urine Protein NEGATIVE (Negative); Urine RBC <5 /HPF (None Seen); Urine Urobilinogen Normal (Normal); Urine WBC Clump Rare /HPF (None Seen); Urine Yeast (Budding) Trace /HPF (None Seen); Urine pH 6.5 (5.0-7.0)
[2024-08-08 00:30] VITALS: BMI 38.7
[2024-08-08 01:20] LABS: Anion Gap 10.4 mEq/L (5.0-15.0); Uric Acid 6.5 mg/dL (2.6-6.0)
[2024-08-08 05:25] LABS: Absolute Basophils 0.1 K/uL (0-0.5); Absolute Lymphocytes (CBC) 1.5 K/uL (0.7-4.9); Absolute Monocytes 0.3 K/uL (0.1-1.3); Absolute Neutrophil 9.9 K/uL (1.8-8.0); Basophils % 0.8 % (0-1.3); Hematocrit 31.8 % (36.0-45.0); Hemoglobin 10.8 g/dL (12.0-15.0); Lymphocytes % 13.1 % (15.3-44.8); MCH 30.6 pg (27.0-35.0); MCHC 33.8 g/dL (32.0-36.0); MCV 90.3 fL (80-100); MPV 10.5 fL (7.6-11.3); Monocytes % 2.3 % (3.3-12.3); Neutrophils % 83.8 % (41.7-73.7); Platelets 307 thou/uL (152-406); RBC Red Blood Cell Count 3.52 M/uL (3.86-4.86); Red Cell Distribution Width 15.9 % (12.1-15.2)
[2024-08-08 05:37] LABS: Albumin 3.7 g/dL (3.4-5.0); Anion Gap 11.5 mEq/L (5.0-15.0); Phosphorus 4.5 mg/dL (2.5-4.9); Potassium 4.5 mEq/L (3.5-5.1)
[2024-08-08] MEDS ORDERED: Ringers Lactate 1,000 ML IV SCH (08:00)
[2024-08-08 09:02] VITALS: O2SAT 96
--- NOTE | 2024-08-08 09:30 | P.DS ---
Admission Date: 08/06/24 Discharge Date: 08/08/24 Disposition: [facility] CARE Discharge Condition: FAIR Reason for Admission: Back Pain / Difficulty in walking Brief History of Present Illness: 63 yrs old Female with past medical history of hypertension, hyperlipidemia, gout, sickle cell trait, CKD stage 2, was brought to ER with left leg numbness and generalized weakness and difficulty in ambulating which progressively got worse over 1 week. Patient denied any trauma. No history of any fall. Patient reported low back pain especially on the left side, symptoms are aggravated with movements. Patient was assessed in the ER and noted to have hyperkalemia and renal insufficiency. She was hospitalized for further management. Hospital Course: Patient admitted to the medical floor and the following medical problems addressed: Hyperkalemia Acute on chronic kidney disease stage III Metabolic acidosis Secondary to chronic kidney disease, losartan. Nephrology Dr. Sanchez evaluated patient and assisted with management. Antihyperkalemic measures given Patient given Lokelma x 2. Also treated with bicarb drip Hyperkalemia resolved, metabolic acidosis also resolved Hypertension Patient was normotensive during the hospital stay. Hyperkalemia has resolved, nephrology recommended to resume patient's losartan on discharge and follow-up with nephrology Dr. Hidalgo in the office. Hyperlipidemia Continued statin Lumbar radiculopathy CT findings noted Patient treated with gabapentin and dexamethasone Patient functional status improved, she was able to ambulate with a walker without any assistance, no assistance with transfers. Patient deemed stable for discharge, she is discharged with a short course dexamethasone therapy Outpatient follow-up with spine surgeon recommended. Vital Signs/Physical Exam: Temp Pulse Resp BP Pulse Ox 97.5 F 78 16 131/77 97 08/08/24 04:00 08/08/24 04:00 08/08/24 04:00 08/08/24 04:00 08/08/24 04:00 General: Alert, In no apparent distress, Oriented x3 HEENT: Mucous membr. moist/pink Neck: JVD not distended Respiratory: Clear to auscultation bilaterally, Normal air movement Cardiovascular: No edema, Regular rate/rhythm, Normal S1 S2 Gastrointestinal: Normal bowel sounds, Soft and benign, Non-distended, No tenderness Musculoskeletal: No swelling Integumentary: No rashes, No cyanosis Neurological: Normal strength at 5/5 x4 extr Laboratory Data at Discharge: WBC 11.80 thou/uL (4.3-10.9) H 08/08/24 05:00 Hgb 10.8 g/dL (12.0-15.0) L 08/08/24 05:00 Hct 31.8 % (36.0-45.0) L 08/08/24 05:00 Plt Count 307 thou/uL (152-406) 08/08/24 05:00 PT 11.1 SECONDS (9.4-12.5) 08/06/24 18:51 INR 0.99 08/06/24 18:51 Sodium 134 mEq/L (136-145) L 08/08/24 05:00 Potassium 4.5 mEq/L (3.5-5.1) D 08/08/24 05:00 BUN 43 mg/dL (7-18) H 08/08/24 05:00 Creatinine 2.68 mg/dL (0.55-1.02) H 08/08/24 05:00 Glucose 159 mg/dL (74-106) H 08/08/24 05:00 Uric Acid 6.5 mg/dL (2.6-6.0) H 08/08/24 00:45 Phosphorus 4.5 mg/dL (2.5-4.9) 08/08/24 05:00 Magnesium 2.0 mg/dL (1.6-2.4) 08/07/24 17:05 Total Bilirubin 0.4 mg/dL (0.2-1.0) 08/07/24 06:57 AST < 10 U/L (15-37) L 08/07/24 06:57 ALT 22 U/L (13-56) 08/07/24 06:57 Alkaline Phosphatase 72 U/L (45-117) 08/07/24 06:57 Home Medications: Ferrous Sulfate [Ferrous Sulfate*] 65 mg PO BID 11/22/13 Losartan Potassium [Cozaar] 50 mg PO DAILY 11/22/13 Pravastatin [Pravachol*] 40 mg PO BEDTIME 11/22/13 Furosemide [Lasix*] 20 mg PO DAILY 11/14/14 Lactobacillus Acidophilus [Acidophilus] 5 mg PO DAILY 11/14/14 Acetaminophen [Tylenol Extra Strength] 500 mg PO Q6H PRN 12/06/16 Pantoprazole [Protonix Tab*] 40 mg PO DAILY 05/09/23 Gabapentin 300 mg PO BEDTIME #30 cap 08/08/24 Gabapentin [Neurontin*] 100 mg PO DAILY #30 cap 08/08/24 Hydrocodone 5/APAP 325 [[place]anson 5/325*] 1 tab PO Q4H PRN #15 tab 08/08/24 dexAMETHasone [Decadron*] 4 mg PO BID #8 tab 08/08/24 New Medications: dexAMETHasone [Decadron*] 4 mg PO BID #8 tab Gabapentin 300 mg PO BEDTIME #30 cap Gabapentin [Neurontin*] 100 mg PO DAILY #30 cap Hydrocodone 5/APAP 325 [[place] 5/325*] 1 tab PO Q4H PRN #15 tab PRN Reason: Pain Scale 5-7 (Moderate) Physician Discharge Instructions: PROBLEM: Acute Kidney Injury, High Potassium GOAL: Clear understanding of disease process INSTRUCTIONS: Take medications as directed - RX sent Follow up with your PCP in 1 week 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 [phone] Diet: Renal Activity: Fall precautions Diet: Renal Activity: Fall precautions Followup: Karlee Colvin MD [Primary Care Provider] - 1-2 Weeks Time spent managing pt's care (in minutes): 35
[2024-08-08 12:31] VITALS: BP 154/77; TEMP 97.9
--- NOTE | 2024-08-08 21:37 | P.PN ---
Date of Service: 08/08/24 Vital Signs Temp Pulse Resp BP Pulse Ox 97.9 F 74 15 154/77 H 99 08/08/24 12:00 08/08/24 12:00 08/08/24 12:00 08/08/24 12:00 08/08/24 12:00 Assessment/ Plan: Nephrology No dyspnea No chest pain No acute events overnight Vitals, medications, blood work and imaging reviewed in the chart General: In no apparent distress, Oriented x3, Cooperative HEENT: Atraumatic Neck: Supple Respiratory: Clear to auscultation bilaterally Cardiovascular: No edema, Regular rate/rhythm Gastrointestinal: Soft and benign, Non-distended Musculoskeletal: No clubbing, No contractures Integumentary: No rashes, No cyanosis Neurological: Normal speech Laboratory Data (last 24 hrs) 08/06/24 08/06/24 08/06/24 18:51 18:40 18:40 WBC Hgb Hct Plt Count PT 11.1 INR 0.99 Sodium Potassium 7.0 H* BUN Creatinine Glucose Magnesium 2.2 Total Bilirubin 0.2 AST 13 L ALT 27 Alkaline Phosphatase 78 08/06/24 08/06/24 17:30 17:30 WBC 12.90 H Hgb 11.3 L Hct 33.6 L Plt Count 312 PT INR Sodium 132 L Potassium 7.7 H* BUN 51 H Creatinine 3.61 H Glucose 88 Magnesium Total Bilirubin 0.3 AST 14 L ALT 25 Alkaline Phosphatase 77 Imagings Data: [id number] EXAMINATION: ONE VIEW CHEST XR CLINICAL INDICATION: COUGH TECHNIQUE: Frontal chest projection is submitted. Examination is limited by patient positioning and technique. COMPARISON: No prior exam. FINDINGS: The lungs are well inflated and clear. The heart is normal in size. No displaced fractures identified. IMPRESSION: No acute intrathoracic abnormalities. [id number] EXAMINATION: US BILATERAL LOWER EXTREMITY VENOUS DOPPLER CLINICAL INDICATION: PAIN TECHNIQUE: Complete bilateral duplex sonography of the BILATERAL lower extremity veins was performed. The examination included compression for vein patency, color Doppler imaging and flow augmentation in response to distal compression of the distal external iliac, common femoral, femoral, popliteal, tibial, and great and small saphenous veins. COMPARISON: No prior exam. FINDINGS: Duplex sonography testing of the veins of the BILATERAL lower extremity was performed. Color flow imaging shows all veins to be compressible with [id number] color filling. Pulsatile and phasic flow is present within all lower extremity deep and superficial veins examined. IMPRESSION: There is no deep vein or superficial vein thrombosis. [id number] EXAMINATION: MRI LUMBAR SPINE WITHOUT CONTRAST CLINICAL INDICATION: Female, 63 years old. [facility] MAIN N PAIN TECHNIQUE: Multiplanar multisequence MR images were obtained of the lumbar spine without intravenous contrast. Unless otherwise specified, incidental findings do not require dedicated imaging follow-up. [id number]. COMPARISON: CT lumbar spine 08/06/2024. FINDINGS: For purposes of this dictation, it is assumed that there are 5 non rib-bearing lumbar type vertebrae, and the most caudal fully segmented lumbar vertebra is labeled L5. ALIGNMENT: Grade 1 anterolisthesis of L3 over L4 and L4 over L5, measuring up to 5 mm. No significant scoliosis. BONE: Vertebral bodies are normal in height. There is a normal marrow signal pattern. Facet and endplate remodeling, more pronounced at the lower levels, contributes to the findings below CORD: No abnormal signal in the cord. The conus medullaris terminates at a normal level. The nerve roots of the cauda equina appear normal although they demonstrate some mild crowding within the right dorsal aspect of the thecal sac above L3-4 level, which may be related to the degree of canal stenosis at that level. SOFT TISSUE: The included paraspinal soft tissues and retroperitoneal structures are grossly normal. Colonic diverticulosis. EVALUATION OF THE INDIVIDUAL LEVELS: L1-2: Broad-based posterior disc bulge. No significant central canal stenosis. Mild bilateral neural foraminal narrowing. L2-3: Broad-based posterior disc bulge. Trace left facet effusion. No significant central canal stenosis. Mild bilateral neural foraminal narrowing. L3-4: Mild disc height loss. Broad-based posterior disc bulge with uncovering of the superior disc margin. Moderately pronounced ligamentum flavum buckling with trace bilateral facet effusions. Findings contribute to moderate central canal stenosis. Mild bilateral neural foraminal narrowing worse on the right. L4-5: Broad-based posterior disc bulge with a left foraminal superimposed disc extrusion, where there is an associated focal annular hyperintensity. No significant central canal stenosis. Mild bilateral neural foraminal narrowing.. L5-S1: Advanced disc height loss with partial ankylosis anteriorly. Disc osteophyte complex centrally and along the left more than right subarticular and foraminal zones, which in addition to epidural fat prominence, contributes to mild effacement of the central canal. Mild bilateral neural foraminal narrowing. IMPRESSION: Moderate spondylosis lumbar spine changes as above, contributing to moderate central canal stenosis. Multilevel variable degrees of neural foraminal narrowing, predominantly mild. [id number] EXAMINATION: CT LUMBAR SPINE WITHOUT CONTRAST CLINICAL INDICATION: Female, 63 years old. PAIN TECHNIQUE: Axial CT images were obtained through the lumbar spine in soft tissue and bone windows without intravenous contrast. Coronal and Sagittal reformatted images were created from the data set. One or more of the following dose reduction techniques were used: Automated exposure control, adjustment of the mA and/ or kV according to patient size, and/or iterative reconstruction. Unless otherwise specified, incidental findings do not require dedicated imaging follow-up. COMPARISON: No prior exam. FINDINGS: For purposes of this dictation, it is assumed that there are 5 non rib-bearing lumbar type vertebrae, and the most caudal fully segmented lumbar vertebra is labeled L5. ALIGNMENT: Mild anterolisthesis of L3 on 4 seen. BONES: No significant soft tissue abnormalities. No aggressive osseous lesions. DISCS: Intervertebral disc space heights are maintained. LEVELS: Prominent lower lumbar spine facet hypertrophy spanning L3-4, L4-5 and L5-S1 bilaterally. This results in moderate central canal stenosis at the L3-4 level. SOFT TISSUE: No soft tissue abnormalities. IMPRESSION: No acute lumbar spine abnormalities. Moderate central canal stenosis suspected at L3-4 caused by spondylosis as described above. Conclusions/Impression: Stage I ANILA likely due to hypovolemia CKD IIIb with Proteinuria -No NSAIDs -Change IVF to LR Hyponatremia -Continue IVF Hyperkalemia -[facility] prn -Low potassium diet NAG Metabolic Acidosis, resolved HTN with CKD, labile -Restart antihypertensives Anemia in chronic illness/ CKD -Monitor H&H Case reviewed with Dr. Wood
== END 2024-08-08 12:37 | disposition home or self-care (01) | DRG 683 ==
LOC: ER 15:37 → ERHOLD 19:00 → 2ND 21:18 → ERHOLD 21:45 → 2ND 08-07 13:05
PROVIDERS: ADMIT Family Medicine; ATTEND Internal Medicine
DX: N17.9 Acute kidney failure, unspecified (principal); E87.1 Hypo-osmolality and hyponatremia; Z68.41 Body mass index [BMI] 40.0-44.9, adult; E87.20 Acidosis, unspecified; E66.9 Obesity, unspecified; E87.5 Hyperkalemia; M10.9 Gout, unspecified; E78.5 Hyperlipidemia, unspecified; M54.16 Radiculopathy, lumbar region; M79.605 Pain in left leg; M54.30 Sciatica, unspecified side; I12.9 Hypertensive chronic kidney disease with stage 1 through stage 4 chronic kidney disease, or unspecified chronic kidney disease; N18.32 Chronic kidney disease, stage 3b; D63.1 Anemia in chronic kidney disease; Z79.899 Other long term (current) drug therapy
CPT/HCPCS: 36415; 71045; 72131; 72148; 80048; 80053; 80069; 80076; 81001; 83735; 83880; 84100; 84132; 84484; 84550; 85025; 85610; 87086; 87088; 93005; 93970; 94760; 97116; 97161; 97530; 99285; J0612; J1100; J1644; J1940; J2405; J7040; J7613; J8540

== ENCOUNTER 2024-09-16 14:56 | Emergency (ER) | payer MEDICARE ==
--- OUTSIDE RECORDS SUMMARY | 2024-09-16 15:01 | XMS REPORT | Continuity of Care Document ---
Author Name Unknown Address [address] [facility] [address] [id number] [facility] Address [address] [facility] [address] [place] [address] Care Team Providers Care Certified Surgical Tech/First Assistant Name Role Phone Sudha Traore Primary Care Physician [phone] Karlee Colvin Attending Clinician Unavailable Sudha Traore Attending Clinician Unavailable Azar Watson Attending Clinician Unavailable Marissa Rodriguez Attending Clinician Unavailable Germaine Laboy Attending Clinician Anabelle Malik Attending Clinician Madonna Talavera Attending Clinician GC_GCBZW_Kadiyala_S Attending Clinician Unavaila augustin Doctor Unassigned, [place] Attending Clinician U SHILPA Madera Attending Clinician Unavailable Taj_Ranjit Attending Clinician Unavailable Shilpa Bourgeois PA-C Attending Clinician [phone] [email or web address]_Kadiyala_S Admitting Clinician Unavaila augustin Adams_R Admitting Clinician Unavailable Payers Payer Name Policy Type Policy Number Effective Date Expirati on Date Source [employer] (MEDICARE REPLACEMENT HMO) [id number] 2021 00:00:00 [employer] Medicare Replace C1 [id number] [facility] [employer] Medicare Replace C1 [id number] [facility] [employer] Medicare Replace C1 [id number] [facility] [employer] Medicare Replace C1 [id number] [facility] [employer] Medicare Replace C1 [id number] [facility] Problems Condition Name Condition Details Condition Category Status Onset Date Resolution Date Last Treatment Date Treating Clinician Comments Source Essential hypertensi on, benign Essential hypertensi on, benign Disease Active 04-08 00:00: 00 [facility] Hyperlipid emia Hyperlipid emia Disease Active 04-08 00:00: 00 [facility] Venous (periphera l) insufficie ncy Venous (periphera l) insufficie ncy Disease Active 05-12 00:00: 00 Overview: Formattin g of this note might be different from the original. 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 Disease Active 12-11 00:00: 00 [facility] [id number] Family history of heart disease Problem [facility] Mixed hyperlipid emia Hyperlipid emia, mixed Problem [facility] Polyp colon Colon polyp Problem [facility] [id number] Generalize d weakness Problem [facility] [id number] Polyarthra lgia Problem [facility] Sickle cell trait Sickle-mateo l trait Problem [facility] [id number] Hyperurice davy Problem [facility] Pulmonary hypertensi on Pulmonary hypertensi on Problem [facility] [id number] Diverticul osis large intestine w/o perforatio n or abscess w/o bleeding Problem Common [facility] [id number] Pain in left foot Problem Common [facility] Iron deficiency anemia due to chronic blood loss Iron deficiency anemia due to chronic blood loss Problem Common [facility] [id number] Diverticul osis Problem Common [facility] Heel pain Heel pain Problem Comm on [facility] Glaucoma Glaucoma of both eyes, unspecifie d glaucoma type Problem Common [facility] [id number] Pain in left leg Problem Common [facility] [id number] Pain in right leg Problem [facility] [id number] Tiredness Problem Comm on [facility] [id number] Legal blindness Problem [facility] [id number] Acute midline low back pain with left-sided sciatica Problem [facility] [id number] Acute gout of right foot, unspecifie d cause Problem [facility] Gout Gout Problem Common 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 Chronic kidney disease stage 3A Stage 3a chronic kidney disease Problem Common [facility] [id number] Lumbar radiculopa thy Problem Common [facility] [id number] Central stenosis of spinal canal Problem Common [facility] [id number] Left adrenal mass Problem Common 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 Problem [facility] [id number] Mild intermitte nt asthma without complicati on Problem [facility] Chronic kidney disease stage 3B (disorder) Stage 3b chronic kidney disease (CKD) Problem [facility] [id number] Pain in right foot Problem [facility] [id number] Memory changes Problem [facility] [id number] Pain, joint, ankle, right Problem [facility] [id number] Pain in left ankle and joints of left foot Problem [facility] [id number] Anemia in chronic kidney disease Problem [facility] Varicose vein Varicose vein Problem [facility] [id number] Body mass index (BMI) of 40.0-44.9 in adult Problem [facility] Chronic renal disease Chronic kidney disease, unspecifie d CKD stage Problem [facility] Essential hypertensi on Essential hypertensi on Problem [facility] [id number] Morbid obesity Problem [facility] [id number] Iron deficiency anemia, unspecifie d iron deficiency anemia type Problem [facility] [id number] Rash and nonspecifi c skin eruption Problem [facility] [id number] Varicose veins of both lower extremitie s, unspecifie d whether complicate d Problem [facility] Obesity Obesity Problem [facility] Allergies, Adverse Reactions, Alerts Allergy Name Allergy Type Status Severity Reaction(s) Onset Date Inactive Date Treating Clinician Comments Source NO KNOWN ALLERGIE S Drug Class Active [facility] Social History Social Habit Start Date Stop Date Quantity Comments Source Exposure to SARS-CoV-2 (event) Not sure [facility] History of Tobacco Use [facility] Sex Assigned At [facility] Alcohol intake 2021-06-15 00:00:00 2021-06-15 00:00:00 Current non-drinker of alcohol (finding) [facility] Tobacco use and exposure 2010-12-11 00:00:00 2010-12-11 00:00:00 Smokeless tobacco non-user [facility] Smoking Status Start Date Stop Date Source Never Smoker [facility] Medications Ordered Medication Name Filled Medication Name Start Date Stop Date Current Medication? Ordering Clinician Indication Dosage Frequency Signature (SIG) Comments Components Source Rosuvastati n Calcium 10 MG Rosuvastati n Calcium 10 MG 05-13 00:00: 00 No 1{table t} QD Rosuvastat in Calcium 10 MG Lidocaine Lidocaine 2021-10 00:00: 00 No 20mg [facility] Kenalog (Triamcinol one) Kenalog (Triamcinol one) 2021-10 00:00: 00 No 40mg [facility] losartan (COZAAR) 25 mg tablet 01-13 13:56: 11 Yes 25mg Take 25 mg by mouth daily. [facility] Cholecalcif greg, Vitamin D3, (VITAMIN D3) 1,000 unit Cap 01-13 13:56: 11 Yes 1{capsu le} Take 1 Cap by mouth daily. [facility] aspirin (ASPIRIN CHILDRENS) 81 mg chewable tablet 01-13 13:56: 11 Yes 81mg Take 81 mg by mouth daily. [facility] losartan (COZAAR) 25 mg tablet 01-13 08:56: 11 Yes 25mg Take 25 mg by mouth daily. [facility] Cholecalcif greg, Vitamin D3, (VITAMIN D3) 1,000 unit Cap 01-13 08:56: 11 Yes 1{capsu le} Take 1 Cap by mouth daily. [facility] aspirin (ASPIRIN CHILDRENS) 81 mg chewable tablet 01-13 08:56: 11 Yes 81mg Take 81 mg by mouth daily. [facility] buPROPion 100 mg tablet 2019-10 00:00: 00 Yes 100mg Take 100 mg by mouth. [facility] triamcinolo ne 0.1 % lotion 04-12 00:00: 00 Yes Apply to area(s) 3 (three) times daily. [facility] losartan (COZAAR) 25 mg tablet 04-08 16:22: 43 Yes 25mg Take 25 mg by mouth daily. [facility] Cholecalcif greg, Vitamin D3, (VITAMIN D3) 1,000 unit Cap 04-08 15:54: 30 Yes 1{capsu le} Take 1 Cap by mouth daily. [facility] aspirin (ASPIRIN CHILDRENS) 81 mg chewable tablet 04-08 15:54: 30 Yes 81mg Take 81 mg by mouth daily. [facility] metoprolol tartrate (LOPRESSOR) 100 mg tablet 04-19 00:00: 00 Yes 100mg Take 1 Tab by mouth daily. [facility] pravastatin (PRAVACHOL) 40 mg tablet 12-09 00:00: 00 Yes 40mg Take 40 mg by mouth 2 (two) times daily. [facility] ferrous sulfate (IRON) 325 mg (65 mg Iron) tablet 12-09 00:00: 00 Yes 325mg Take 325 mg by mouth daily. [facility] pantoprazol e sodium 40 mg tablet pantoprazol e sodium 40 mg tablet Yes [facility] allopurinol 100 mg tablet [...] eye_in_ the_eve annel} QD Lumigan 0.01 % Albuterol Sulfate HFA 108 (90 Base) MCG/ACT [...] t} TID Dicyclomin e HCl 20 MG Gabapentin 300 MG Gabapentin 300 MG No 1{capsu le} BID Gabapentin 300 MG Furosemide 20 MG Furosemide 20 MG No 1{table t} QD Furosemide 20 MG Nystatin 251429 UNIT/GM Nystatin 278546 UNIT/GM No 1{appli cation} BID Nystatin 941207 UNIT/GM Olmesartan Medoxomil 20 MG Olmesartan Medoxomil 20 MG No 1{table t} QD Olmesartan Medoxomil 20 MG Vital Signs Vital Name Observation Time Observation Value Comments S annace height 2024-09-03 13:20:00 64 [in_i] Commo n [facility] weight 2024-09-03 13:20:00 242 [lb_av] Comm on [facility] temperature 2024-09-03 13:20:00 97.1 [degF] Com mon [facility] bmi 2024-09-03 13:20:00 41.53 kg/m2 Comm on [facility] oximetry 2024-09-03 13:20:00 99 % Comm n [facility] respiratory rate 2024-09-03 13:20:00 16 /min [facility] blood pressure systolic 2024-09-03 13:20:00 130 mm[Hg] Common [facility] blood pressure diastolic 2024-09-03 13:20:00 82 mm[Hg] Common [facility] height 2024-08-13 14:00:00 64 [in_i] Commo n [facility] weight 2024-08-13 14:00:00 243 [lb_av] Comm on [facility] temperature 2024-08-13 14:00:00 97.2 [degF] Com [facility] bmi 2024-08-13 14:00:00 41.71 kg/m2 Comm on [facility] oximetry 2024-08-13 14:00:00 96 % Commo n [facility] respiratory rate 2024-08-13 14:00:00 16 /min [facility] blood pressure systolic 2024-08-13 14:00:00 120 mm[Hg] [facility] blood pressure diastolic 2024-08-13 14:00:00 62 mm[Hg] [facility] height 2024-07-29 13:00:00 64 [in_i] Commo n [facility] weight 2024-07-29 13:00:00 247 [lb_av] Comm on [facility] temperature 2024-07-29 13:00:00 97.3 [degF] Com [facility] bmi 2024-07-29 13:00:00 42.39 kg/m2 Comm on [facility] oximetry 2024-07-29 13:00:00 99 % Commo n [facility] respiratory rate 2024-07-29 13:00:00 16 /min [facility] height 2024-05-13 09:20:00 64 [in_i] Commo n [facility] weight 2024-05-13 09:20:00 240 [lb_av] Comm on [facility] temperature 2024-05-13 09:20:00 97.3 [degF] Com [facility] bmi 2024-05-13 09:20:00 41.19 kg/m2 Comm on [facility] oximetry 2024-05-13 09:20:00 99 % Commo n [facility] respiratory rate 2024-05-13 09:20:00 16 /min [facility] blood pressure systolic 2024-05-13 09:20:00 120 mm[Hg] [facility] blood pressure diastolic 2024-05-13 09:20:00 72 mm[Hg] [facility] height 2024-05-13 09:20:00 64 [in_i] Commo n [facility] weight 2024-05-13 09:20:00 240 [lb_av] Comm on [facility] temperature 2024-05-13 09:20:00 97.3 [degF] Com mon [facility] bmi 2024-05-13 09:20:00 41.19 kg/m2 Comm on [facility] oximetry 2024-05-13 09:20:00 99 % Commo n [facility] respiratory rate 2024-05-13 09:20:00 16 /min [facility] blood pressure systolic 2024-05-13 09:20:00 120 mm[Hg] [facility] blood pressure diastolic 2024-05-13 09:20:00 72 mm[Hg] [facility] height 2024-04-01 09:40:00 64 [in_i] Commo n [facility] weight 2024-04-01 09:40:00 232.8 [lb_av] Co mmon [facility] temperature 2024-04-01 09:40:00 97.2 [degF] Com mon [facility] bmi 2024-04-01 09:40:00 39.96 kg/m2 Comm on [facility] oximetry 2024-04-01 09:40:00 99 % Commo n [facility] respiratory rate 2024-04-01 09:40:00 16 /min Common [facility] blood pressure systolic 2024-04-01 09:40:00 138 mm[Hg] [facility] blood pressure diastolic 2024-04-01 09:40:00 86 mm[Hg] [facility] height 2024-01-30 08:40:00 64 [in_i] Commo n [facility] weight 2024-01-30 08:40:00 236 [lb_av] Comm on [facility] temperature 2024-01-30 08:40:00 97.3 [degF] Com [facility] bmi 2024-01-30 08:40:00 40.5 kg/m2 Commo n [facility] oximetry 2024-01-30 08:40:00 98 % Commo n [facility] respiratory rate 2024-01-30 08:40:00 16 /min Common [facility] blood pressure systolic 2024-01-30 08:40:00 136 mm[Hg] Common [facility] blood pressure diastolic 2024-01-30 08:40:00 84 mm[Hg] Common [facility] height 2023-10-12 10:00:00 64 [in_i] Commo n [facility] weight 2023-10-12 10:00:00 242 [lb_av] Comm on [facility] temperature 2023-10-12 10:00:00 97.2 [degF] Com [facility] bmi 2023-10-12 10:00:00 41.53 kg/m2 Comm on [facility] oximetry 2023-10-12 10:00:00 98 % Commo n [facility] respiratory rate 2023-10-12 10:00:00 16 /min Common [facility] blood pressure systolic 2023-10-12 10:00:00 126 mm[Hg] [facility] blood pressure diastolic 2023-10-12 10:00:00 70 mm[Hg] Common [facility] height 2023-07-11 10:00:00 64 [in_i] Commo n [facility] weight 2023-07-11 10:00:00 240.0 [lb_av] Co mmon [facility] temperature 2023-07-11 10:00:00 97.2 [degF] Com mon [facility] bmi 2023-07-11 10:00:00 41.19 kg/m2 Comm on [facility] oximetry 2023-07-11 10:00:00 99 % Commo n [facility] respiratory rate 2023-07-11 10:00:00 16 /min Common [facility] blood pressure systolic 2023-07-11 10:00:00 134 mm[Hg] [facility] blood pressure diastolic 2023-07-11 10:00:00 70 mm[Hg] [facility] height 2023-05-28 14:40:00 64 [in_i] Commo n [facility] weight 2023-05-28 14:40:00 240 [lb_av] Comm on [facility] temperature 2023-05-28 14:40:00 97.3 [degF] Com [facility] bmi 2023-05-28 14:40:00 41.19 kg/m2 Comm on [facility] oximetry 2023-05-28 14:40:00 99 % Commo n [facility] respiratory rate 2023-05-28 14:40:00 17 /min [facility] blood pressure systolic 2023-05-28 14:40:00 134 mm[Hg] Common [facility] blood pressure diastolic 2023-05-28 14:40:00 78 mm[Hg] Common [facility] height 2023-04-06 09:40:00 64 [in_i] Commo n [facility] weight 2023-04-06 09:40:00 242.2 [lb_av] Co mmon [facility] temperature 2023-04-06 09:40:00 97.3 [degF] Com [facility] bmi 2023-04-06 09:40:00 41.57 kg/m2 Comm on [facility] oximetry 2023-04-06 09:40:00 98 % Commo n [facility] respiratory rate 2023-04-06 09:40:00 16 /min Common [facility] blood pressure systolic 2023-04-06 09:40:00 138 mm[Hg] Common [facility] blood pressure diastolic 2023-04-06 09:40:00 72 mm[Hg] [facility] height 2023-02-07 10:00:00 64 [in_i] Commo n [facility] weight 2023-02-07 10:00:00 246 [lb_av] Comm on [facility] temperature 2023-02-07 10:00:00 97.3 [degF] Com [facility] bmi 2023-02-07 10:00:00 42.22 kg/m2 Comm on [facility] oximetry 2023-02-07 10:00:00 99 % Commo n [facility] respiratory rate 2023-02-07 10:00:00 16 /min [facility] blood pressure systolic 2023-02-07 10:00:00 128 mm[Hg] Common [facility] blood pressure diastolic 2023-02-07 10:00:00 74 mm[Hg] [facility] height 2023-01-29 09:00:00 64 [in_i] Commo n [facility] weight 2023-01-29 09:00:00 250 [lb_av] Comm on [facility] temperature 2023-01-29 09:00:00 97.2 [degF] Com [facility] bmi 2023-01-29 09:00:00 42.91 kg/m2 Comm on [facility] blood pressure systolic 2023-01-29 09:00:00 131 mm[Hg] [facility] blood pressure diastolic 2023-01-29 09:00:00 71 mm[Hg] Common [facility] height 2022-11-24 08:20:00 64 [in_i] Commo n [facility] weight 2022-11-24 08:20:00 247 [lb_av] Comm on [facility] temperature 2022-11-24 08:20:00 97.6 [degF] Com mon [facility] bmi 2022-11-24 08:20:00 42.39 kg/m2 Comm on [facility] oximetry 2022-11-24 08:20:00 99 % Commo n [facility] respiratory rate 2022-11-24 08:20:00 16 /min [facility] blood pressure systolic 2022-11-24 08:20:00 130 mm[Hg] [facility] blood pressure diastolic 2022-11-24 08:20:00 70 mm[Hg] Common [facility] height 2022-11-08 09:00:00 64 [in_i] Commo n [facility] weight 2022-11-08 09:00:00 246.4 [lb_av] Co [facility] bmi 2022-11-08 09:00:00 42.29 kg/m2 Comm on [facility] height 2022-09-04 11:00:00 64 [in_i] Commo n [facility] weight 2022-09-04 11:00:00 246.4 [lb_av] Co [facility] temperature 2022-09-04 11:00:00 97.3 [degF] Com mon [facility] bmi 2022-09-04 11:00:00 42.29 kg/m2 Comm on [facility] oximetry 2022-09-04 11:00:00 98 % Commo n [facility] respiratory rate 2022-09-04 11:00:00 16 /min Common [facility] blood pressure systolic 2022-09-04 11:00:00 132 mm[Hg] [facility] blood pressure diastolic 2022-09-04 11:00:00 68 mm[Hg] [facility] height 2022-08-23 09:00:00 64 [in_i] Commo n [facility] weight 2022-08-23 09:00:00 242 [lb_av] Comm on [facility] temperature 2022-08-23 09:00:00 97.3 [degF] Com [facility] bmi 2022-08-23 09:00:00 41.53 kg/m2 Comm on [facility] blood pressure systolic 2022-08-23 09:00:00 132 mm[Hg] Common [facility] blood pressure diastolic 2022-08-23 09:00:00 80 mm[Hg] Common [facility] height 2022-08-02 09:00:00 64 [in_i] Commo n [facility] weight 2022-08-02 09:00:00 242 [lb_av] Comm on [facility] temperature 2022-08-02 09:00:00 97.3 [degF] Com [facility] bmi 2022-08-02 09:00:00 41.53 kg/m2 Comm on [facility] blood pressure systolic 2022-08-02 09:00:00 136 mm[Hg] [facility] blood pressure diastolic 2022-08-02 09:00:00 80 mm[Hg] Common [facility] height 2022-07-05 10:00:00 64 [in_i] Commo n [facility] weight 2022-07-05 10:00:00 240 [lb_av] Comm on [facility] temperature 2022-07-05 10:00:00 97.1 [degF] Com [facility] bmi 2022-07-05 10:00:00 41.19 kg/m2 Comm on [facility] blood pressure systolic 2022-07-05 10:00:00 136 mm[Hg] Common [facility] blood pressure diastolic 2022-07-05 10:00:00 84 mm[Hg] [facility] height 2022-05-30 10:00:00 64 [in_i] Commo n [facility] weight 2022-05-30 10:00:00 250.0 [lb_av] Co mmon [facility] temperature 2022-05-30 10:00:00 97.6 [degF] Com [facility] bmi 2022-05-30 10:00:00 42.91 kg/m2 Comm on [facility] oximetry 2022-05-30 10:00:00 97 % Commo n [facility] respiratory rate 2022-05-30 10:00:00 18 /min [facility] blood pressure systolic 2022-05-30 10:00:00 136 mm[Hg] [facility] blood pressure diastolic 2022-05-30 10:00:00 70 mm[Hg] [facility] height 2022-02-24 10:00:00 64 [in_i] Commo n [facility] weight 2022-02-24 10:00:00 244.6 [lb_av] Co mmon [facility] temperature 2022-02-24 10:00:00 97.2 [degF] Com [facility] bmi 2022-02-24 10:00:00 41.98 kg/m2 Comm on [facility] oximetry 2022-02-24 10:00:00 98 % Commo n [facility] respiratory rate 2022-02-24 10:00:00 18 /min [facility] blood pressure systolic 2022-02-24 10:00:00 135 mm[Hg] Common [facility] blood pressure diastolic 2022-02-24 10:00:00 82 mm[Hg] Common [facility] height 2022-01-16 10:20:00 64 [in_i] Commo n [facility] weight 2022-01-16 10:20:00 240 [lb_av] Comm on [facility] temperature 2022-01-16 10:20:00 97.8 [degF] Com mon [facility] bmi 2022-01-16 10:20:00 41.19 kg/m2 Comm on [facility] oximetry 2022-01-16 10:20:00 99 % Commo n [facility] respiratory rate 2022-01-16 10:20:00 18 /min [facility] blood pressure systolic 2022-01-16 10:20:00 136 mm[Hg] [facility] blood pressure diastolic 2022-01-16 10:20:00 82 mm[Hg] Common [facility] height 2021-11-16 09:00:00 64 [in_i] Commo n [facility] weight 2021-11-16 09:00:00 241 [lb_av] Comm on [facility] bmi 2021-11-16 09:00:00 41.36 kg/m2 Comm on [facility] height 2021-09-09 08:40:00 64 [in_i] Commo n [facility] weight 2021-09-09 08:40:00 241 [lb_av] Comm on [facility] bmi 2021-09-09 08:40:00 41.36 kg/m2 Comm on [facility] height 2021-08-18 09:00:00 64 [in_i] Commo n [facility] weight 2021-08-18 09:00:00 241.0 [lb_av] Co mmon [facility] temperature 2021-08-18 09:00:00 96.9 [degF] Com mon [facility] bmi 2021-08-18 09:00:00 41.36 kg/m2 Comm on [facility] oximetry 2021-08-18 09:00:00 99 % Commo n [facility] respiratory rate 2021-08-18 09:00:00 18 /min Common [facility] blood pressure systolic 2021-08-18 09:00:00 120 mm[Hg] [facility] blood pressure diastolic 2021-08-18 09:00:00 74 mm[Hg] [facility] Systolic blood pressure 2021-06-15 14:30:00 131 mm[Hg] [place] [facility] Diastolic blood pressure 2021-06-15 14:30:00 75 mm[Hg] [place] [facility] Heart rate 2021-06-15 14:25:00 78 /min [facility] temperature 2021-06-15 14:25:[address] [facility] Respiratory rate 2021-06-15 14:25:00 18 /min [facility] Body height 2021-06-15 14:25:00 170.2 cm [facility] Body weight 2021-06-15 14:25:00 113.671 kg [facility] BMI 2021-06-15 14:25:00 39.25 kg/m2 [facility] Body temperature 2021-01-13 13:54:[address] [facility] Respiratory rate 2021-01-13 13:54:00 16 /min [facility] Body height 2021-01-13 13:54:00 170.2 cm [facility] Body weight 2021-01-13 13:54:00 109.045 kg [facility] BMI 2021-01-13 13:54:00 37.65 kg/m2 [facility] Systolic blood pressure 2021-01-13 13:54:00 125 mm[Hg] [place] [facility] Diastolic blood pressure 2021-01-13 13:54:00 69 mm[Hg] [facility] Heart rate 2021-01-13 13:54:00 75 /min [facility] Procedures Procedure Date / Time Performed Performing Clinician Source EXTERNAL PROVIDER RECORDS 2023-03-27 05:01:00 Do ctor Unassigned, [place] [facility] US PELVIS COMPLETE WITH TRANSVAGINAL 2021-05-11 15:20:[address] [facility] ASSIGNMENT OF BENEFITS 2021-05-11 13:41:33 Docto r Unassigned, [place] [facility] EXTERNAL PROVIDER RECORDS 2021-01-24 05:01:00 Do ctor Unassigned, [place] [facility] INSURANCE CORRESPONDENCE 2021-01-19 05:01:00 Doc tor Unassigned, [place] [facility] AUTHORIZATION TO RELEASE PHI TO [facility] 2021-01-13 05:01:00 Doctor Unassigned, [place] [facility] Encounters Start Date/Time End Date/Time Encounter Type Admission Type Attending [facility] Care Facility Care Department Encounter ID Source 2024-08-13 09:12:00 [address] [facility] [id number] [facility] 2024-07-29 10:28:00 Outpatient [facility] [id number] [facility] 2024-05-09 10:19:00 Outpatient [facility]Karlee [facility] [id number] [facility] 2024-01-28 09:20:00 Outpatient ColvinKarlee STLC ST[facility] [id number] [facility] 2023-11-20 15:38:00 Outpatient [facility]Karlee [facility] [id number] [facility] 2023-10-11 15:49:00 Outpatient ColvinKarlee STLC STLC [id number] [facility] 2023-10-10 11:02:00 Outpatient Colvin, Karlee [facility]C ST[facility] [id number] [facility] 2023-05-25 09:01:00 Outpatient Colvin, Karlee [facility] [id number] [facility] 2023-04-04 09:55:00 Outpatient Colvin, Karlee [facility]C ST[facility] [id number] [facility] 2023-02-06 13:31:00 Outpatient Colvin, Karlee [facility] ST[facility] [id number] [facility] 2023-02-05 16:18:00 Outpatient Colvin, Karlee [facility]C ST[facility]C [id number] [facility] 2023-01-30 15:37:00 Outpatient Colvin, Karlee [facility]C ST[facility] [id number] [facility] 2022-11-24 09:46:00 Outpatient Colvin, Karlee [facility]C ST[facility] [id number] [facility] 2022-11-08 08:23:00 Outpatient Colvin, Karlee [facility] ST[facility] [id number] [facility] 2022-11-07 15:16:00 Outpatient Colvin, Karlee [facility] ST[facility] [id number] [facility] 2022-10-27 12:43:00 Outpatient Colvin, Karlee [facility]C ST[facility] [id number] [facility] 2022-08-31 11:26:00 Outpatient Sudha Traore [facility]C ST[facility]C [id number] [facility] 2022-08-02 09:07:01 Outpatient Sudha Traore [facility] ST[facility] [id number] [facility] 2022-07-06 09:32:00 Outpatient TraoreSudha mancia STLMLC STLMLC [id number] [facility] 2022-07-05 10:27:00 Outpatient Sudha Traore [facility] [id number] [facility] 2022-06-27 09:27:01 Outpatient Sudha Traore [facility] ST[facility]C [id number] [facility] 2022-05-26 10:09:00 Outpatient TraoreSudha mancia [facility]C ST[facility]C [id number] [facility] 2022-02-22 08:24:02 Outpatient Sudha Traore [facility] [id number] [facility] 2022-01-16 10:10:00 Outpatient Sudha Traore [facility] ST[facility] [id number] [facility] 2021-11-16 14:32:02 Outpatient Sudha Traore [facility]C ST[facility]C [id number] [facility] 2021-11-16 14:31:06 Outpatient Sudha Traore [facility]C ST[facility]C [id number] [facility] 2021-11-16 13:09:20 Outpatient Sudha Traore [facility] ST[facility]C [id number] [facility] 2021-11-16 12:39:12 Outpatient Sudha Traore [facility] ST[facility]C [id number] [facility] 2021-11-16 12:34:08 Outpatient Sudha Traore [facility]C [id number] [facility] 2021-11-16 12:25:21 Outpatient Sudha Traore [facility]C ST[facility]C [id number] [facility] 2021-11-16 12:25:09 Outpatient Sudha Traore [facility] [id number] [facility] 2021-11-16 12:14:55 Outpatient Sudha Traore [facility] ST[facility]C [id number] [facility] 2021-11-16 12:14:45 Outpatient Azar Watson STL[facility]C ST[facility]C [id number] [facility] 2021-11-16 12:11:09 Outpatient Azar Watson STDELIA STL[facility]C [id number] [facility] 2021-11-16 12:08:17 Outpatient Azar Watson [facility] [id number] [facility] 2021-11-16 12:06:49 Outpatient Azar Watson ST[facility]IA ST[facility]C [id number] [facility] 2021-11-16 12:01:10 Outpatient [facility]C [facility] [id number] [facility] 2021-11-16 11:27:56 Outpatient Marissa Rodriguez [facility] [id number] [facility] 2021-11-16 11:13:44 Outpatient Marissa Rodriguez [facility] [id number] [facility] 2021-11-16 11:09:05 Outpatient Marissa Rodriguez [facility] [id number] [facility] 2021-11-16 11:06:45 Outpatient Marissa Rodriguez [facility] [id number] [facility] 2024-09-03 00:00:00 2024-09-03 00:00:00 OFFICE VISIT ESTAB PT LEVEL 4 [facility] ST[facility]C [id number] [facility] 2024-08-13 00:00:00 2024-08-13 00:00:00 (HOSP F/U) Hospital Follow Up [facility]C STLMLC [id number] [facility] 2024-08-11 00:00:00 2024-08-11 00:00:00 (TEL) STLMLC STLMLC [id number] [facility] 2024-07-31 00:00:00 2024-07-31 00:00:00 (TEL) STLMLC STLMLC [id number] [facility] 2024-07-30 14:00:00 2024-07-30 15:00:00 Annual D2Me Salli Fulminar [id number]. [id number] CLACXRHFH[address] [place] [address] 2024-07-29 00:00:00 2024-07-29 00:00:00 OFFICE VISIT ESTAB PT LEVEL 4 [facility]C STL[facility]C [id number] [facility] 2024-07-28 00:00:00 2024-07-28 00:00:00 (TEL) STLMLC STLMLC [id number] [facility] 2024-07-22 00:00:00 2024-07-22 00:00:00 (TEL) STLMLC STLMLC [id number] [facility] 2024-06-02 00:00:00 2024-06-02 00:00:00 (TEL) STLMLC STLMLC [id number] [facility] 2024-05-14 00:00:00 2024-05-14 00:00:00 (TEL) STLMLC STLMLC [id number] [facility] 2024-05-13 00:00:00 2024-05-13 00:00:00 OFFICE VISIT ESTAB PT LEVEL 4 [facility]C STLMLC [id number] [facility] 2024-05-06 00:00:00 2024-05-06 00:00:00 (TEL) STLMLC STLMLC [id number] [facility] 2024-05-02 00:00:00 2024-05-02 00:00:00 (TEL) STLMLC STLMLC [id number] [facility] 2024-05-02 00:00:00 2024-05-02 00:00:00 (TEL) STLMLC STLMLC [id number] [facility] 2024-05-01 00:00:00 2024-05-01 00:00:00 (TEL) STLMLC STLMLC [id number] [facility] 2024-04-16 00:00:00 2024-04-16 00:00:00 (TEL) STLMLC STLMLC [id number] [facility] 2024-04-04 00:00:00 2024-04-04 00:00:00 (TEL) STLMLC STLMLC [id number] [facility] 2024-04-02 14:00:00 2024-04-02 14:30:00 [place] [id number]. [id number] [address] [place] [address] 2024-04-01 00:00:00 2024-04-01 00:00:00 OFFICE VISIT ESTAB PT LEVEL 4 STL[facility]C STLMLC [id number] [facility] 2024-03-31 00:00:00 2024-03-31 00:00:00 (TEL) STLMLC STLMLC [id number] [facility] 2024-03-25 00:00:00 2024-03-25 00:00:00 (TEL) STLMLC STLMLC [id number] [facility] 2024-02-20 00:00:00 2024-02-20 00:00:00 (TEL) STLMLC STLMLC [id number] [facility] 2024-01-30 00:00:00 2024-01-30 00:00:00 OFFICE VISIT ESTAB PT LEVEL 4 [facility]C STLMLC [id number] [facility] 2023-12-26 00:00:00 2023-12-26 00:00:00 (TEL) STLMLC STLMLC [id number] [facility] 2023-12-18 00:00:00 2023-12-18 00:00:00 (TEL) STLMLC STLMLC [id number] [facility] 2023-11-20 00:00:00 2023-11-20 00:00:00 (TEL) STLMLC STLMLC [id number] [facility] 2023-10-16 00:00:00 2023-10-16 00:00:00 (TEL) STLMLC STLMLC [id number] [facility] 2023-10-12 00:00:00 2023-10-12 00:00:00 OFFICE VISIT ESTAB PT LEVEL 4 STLMLC STLMLC [id number] [facility] 2023-09-24 00:00:00 2023-09-24 00:00:00 (TEL) STLMLC STLMLC [id number] [facility] 2023-09-07 00:00:00 2023-09-07 00:00:00 (TEL) STLMLC STLMLC [id number] [facility] 2023-08-30 00:00:00 2023-08-30 00:00:00 (TEL) STLMLC STLMLC [id number] [facility] 2023-08-23 00:00:00 2023-08-23 00:00:00 (TEL) STLMLC STLMLC [id number] [facility] 2023-07-25 00:00:00 2023-07-25 00:00:00 (TEL) STLMLC STLMLC [id number] [facility] 2023-07-11 00:00:00 2023-07-11 00:00:00 (TEL) STLMLC STLMLC [id number] [facility] 2023-07-11 00:00:00 2023-07-11 00:00:00 OFFICE VISIT ESTAB PT LEVEL 4 STLMLC STLMLC [id number] [facility] 2023-07-02 00:00:00 2023-07-02 00:00:00 (TEL) STLC STLC [id number] [facility] 2023-06-11 18:00:00 2023-06-11 19:00:00 Joshua Talavera [id number]. [id number] CLACXWAUS[address] 2023-06-11 00:00:00 2023-06-11 00:00:00 (TEL) STLC STLC [id number] [facility] 2023-06-04 00:00:00 2023-06-04 00:00:00 (TEL) STLMLC STLC [id number] [facility] 2023-05-31 00:00:00 2023-05-31 00:00:00 (TEL) STLC STLC [id number] [facility] 2023-05-30 00:00:00 2023-05-30 00:00:00 Outpatient GC_GCBZW_Ka diyala_S PRIV PRIV [id number] [facility] 2023-05-30 00:00:00 2023-05-30 00:00:00 Outpatient GC_GCBZW_Ka diyala_S PRIV PRIV [id number] [facility] 2023-05-28 00:00:00 2023-05-28 00:00:00 Outpatient GC_GCBZW_Ka diyala_S PRIV PRIV [id number] [facility] 2023-05-28 00:00:00 2023-05-28 00:00:00 OFFICE VISIT ESTAB PT LEVEL 4 STLC STLC [id number] [facility] 2023-05-22 00:00:00 2023-05-22 00:00:00 (TEL) STLC STLC [id number] [facility] 2023-05-15 00:00:00 2023-05-15 00:00:00 (TEL) STLMLC STLMLC [id number] [facility] 2023-05-01 00:00:00 2023-05-01 00:00:00 (TEL) STLMLC STLMLC [id number] [facility] 2023-04-06 00:00:00 2023-04-06 00:00:00 OFFICE VISIT ESTAB PT LEVEL 4 STLMLC STLMLC [id number] [facility] 2023-04-06 00:00:00 2023-04-06 00:00:00 (TEL) STLMLC STLMLC [id number] [facility] 2023-03-27 00:00:00 2023-03-27 00:00:00 Orders Only Doctor Unassigned, [place] [facility] [id number] [facility] 2023-02-21 00:00:00 2023-02-21 00:00:00 (TEL) STLMLC STLMLC [id number] [facility] 2023-02-07 00:00:00 2023-02-07 00:00:00 OFFICE VISIT ESTAB PT LEVEL 4 STLMLC STLMLC [id number] [facility] 2023-01-30 00:00:00 2023-01-30 00:00:00 (TEL) STLMLC STLMLC [id number] [facility] 2023-01-29 00:00:00 2023-01-29 00:00:00 OFFICE VISIT ESTAB PT LEVEL 3 STLMLC STLMLC [id number] [facility] 2023-01-23 00:00:00 2023-01-23 00:00:00 (TEL) STLMLC STLMLC [id number] [facility] 2023-01-19 00:00:00 2023-01-19 00:00:00 (TEL) STLMLC STLMLC [id number] [facility] 2022-12-08 00:00:00 2022-12-08 00:00:00 (TEL) STLMLC STLMLC [id number] [facility] 2022-12-06 00:00:00 2022-12-06 00:00:00 (TEL) STLMLC STLMLC [id number] [facility] 2022-11-28 00:00:00 2022-11-28 00:00:00 (TEL) STLMLC STLMLC [id number] [facility] 2022-11-24 00:00:00 2022-11-24 00:00:00 OFFICE VISIT ESTAB PT LEVEL 4 STLMLC STLMLC [id number] [facility] 2022-11-13 00:00:00 2022-11-13 00:00:00 (TEL) STLMLC STLMLC [id number] [facility] 2022-11-08 00:00:00 2022-11-08 00:00:00 OFFICE VISIT EST PT LEVEL 3 STLMLC STLMLC [id number] [facility] 2022-11-06 00:00:00 2022-11-06 00:00:00 (TEL) STLMLC STLMLC [id number] [facility] 2022-09-04 00:00:00 2022-09-04 00:00:00 OFFICE VISIT ESTAB PT LEVEL 4 STLMLC STLMLC [id number] [facility] 2022-08-23 00:00:00 2022-08-23 00:00:00 OFFICE VISIT EST PT LEVEL 3 STLMLC STLMLC [id number] [facility] 2022-08-02 00:00:00 2022-08-02 00:00:00 OFFICE VISIT EST PT LEVEL 3 STLMLC STLMLC [id number] [facility] 2022-07-05 00:00:00 2022-07-05 00:00:00 OFFICE VISIT NEW PT LEVEL 3 STLMLC STLMLC [id number] [facility] 2022-06-22 00:00:00 2022-06-22 00:00:00 (TEL) STLMLC STLMLC [id number] [facility] 2022-06-20 00:00:00 2022-06-20 00:00:00 (TEL) STLMLC STLMLC [id number] [facility] 2022-06-15 09:30:00 2022-06-15 09:30:00 Outpatient SHILPA [facility] [id number] [facility] 2022-05-31 00:00:00 2022-05-31 00:00:00 (TEL) STLMLC STLMLC [id number] [facility] 2022-05-30 00:00:00 2022-05-30 00:00:00 OFFICE VISIT ESTAB PT LEVEL 4 STLMLC STLMLC [id number] [facility] 2022-05-22 00:00:00 2022-05-22 00:00:00 (TEL) STLMLC STLMLC [id number] [facility] 2022-05-06 10:01:00 2022-05-06 10:01:00 [place] [id number] [facility] 2022-05-06 00:00:00 2022-05-06 00:00:00 Outpatient Adams_R DMG DMG [id number] [facility] 2022-03-29 00:00:00 2022-03-29 00:00:00 (TEL) STLMLC STLMLC [id number] [facility] 2022-03-21 00:00:00 2022-03-21 00:00:00 (TEL) STLMLC STLMLC [id number] [facility] 2022-03-16 00:00:00 2022-03-16 00:00:00 (TEL) STLMLC STLMLC [id number] [facility] 2022-03-09 00:00:00 2022-03-09 00:00:00 (TEL) STLMLC STLMLC [id number] [facility] 2022-03-02 00:00:00 2022-03-02 00:00:00 (TEL) STLMLC STLMLC [id number] [facility] 2022-02-24 00:00:00 2022-02-24 00:00:00 OFFICE VISIT ESTAB PT LEVEL 4 STLMLC STLMLC [id number] [facility] 2022-02-13 00:00:00 2022-02-13 00:00:00 (TEL) STLMLC STLMLC [id number] [facility] 2022-01-18 00:00:00 2022-01-18 00:00:00 (TEL) STLMLC STLMLC [id number] [facility] 2022-01-16 00:00:00 2022-01-16 00:00:00 OFFICE VISIT EST PT LEVEL 3 STLMLC STLMLC [id number] [facility] 2021-12-16 00:00:00 2021-12-16 00:00:00 (TEL) STLMLC STLMLC [id number] [facility] 2021-12-13 00:00:00 2021-12-13 00:00:00 OL DIG E/M SVC 11-20 MIN STLMLC STLMLC [id number] [facility] 2021-12-12 00:00:00 2021-12-12 00:00:00 (TEL) STLMLC STLMLC [id number] [facility] 2021-11-23 00:00:00 2021-11-23 00:00:00 (TEL) STLMLC STLMLC [id number] [facility] 2021-11-16 00:00:00 2021-11-16 00:00:00 OL DIG E/M SVC 11-20 MIN STLMLC STLMLC [id number] [facility] 2021-10-31 09:57:00 2021-10-31 09:57:00 Outpatient Adams_R DMG DMG [id number] [facility] 2021-10-18 12:00:00 2021-10-18 12:00:00 Outpatient DM[facility] [id number] [facility] 2021-09-09 00:00:00 2021-09-09 00:00:00 OL DIG E/M SVC 21+ MIN STLMLC STLMLC [id number] [facility] 2021-08-29 11:02:00 2021-08-29 11:02:00 Outpatient DMG [facility] [id number] [facility] 2021-08-18 00:00:00 2021-08-18 00:00:00 OFFICE VISIT EST PT LEVEL 3 STLMLC STLMLC [id number] [facility] 2021-08-18 00:00:00 2021-08-18 00:00:00 (TEL) STLMLC STLMLC [id number] [facility] 2021-08-18 00:00:00 2021-08-18 00:00:00 (TEL) STLMLC STLMLC [id number] [facility] 2021-08-15 00:00:00 2021-08-15 00:00:00 (TEL) STLMLC STLMLC [id number] [facility] 2021-07-08 00:00:00 2021-07-08 00:00:00 (TEL) STLMLC STLMLC [id number] [facility] 2021-06-21 00:00:00 2021-06-21 00:00:00 Outpatient STLMLC STLMLC [id number] [facility] 2021-06-15 09:22:29 2021-06-15 09:49:00 Office Visit Shilpa Bourgeois [facility] Sylvie Martinez [facility] [id number] [facility] 2021-06-15 09:00:00 2021-06-15 09:00:00 Outpatient Rajnit [facility] [id number] [facility] 2021-06-10 00:00:00 2021-06-10 00:00:00 Outpatient STLMLC STLMLC [id number] [facility] 2021-06-10 00:00:00 2021-06-10 00:00:00 Outpatient STLMLC STLMLC [id number] [facility] 2021-05-11 08:42:39 2021-05-11 23:59:00 Hospital Rich Bourgeois Shilpa [facility] [id number] [facility] 2021-05-11 00:00:00 2021-05-11 00:00:00 Outpatient Ranjit [facility] [id number] [facility] 2021-05-11 00:00:00 2021-05-11 00:00:00 Orders Only Doctor Unassigned, [place] [facility] [id number] [id number] [facility] 2021-03-23 00:00:00 2021-03-23 00:00:00 Outpatient [facility] [id number] [facility] 2021-01-26 00:00:00 2021-01-26 00:00:00 Outpatient [facility] [id number] [facility] 2021-01-24 00:00:00 2021-01-24 00:00:00 Orders Only Doctor Unassigned, [place] [facility] 1.2.840.114 350.1.13.10 4.2.7.2.686 [id number] [facility] 2021-01-19 00:00:00 2021-01-19 00:00:00 Orders Only Doctor Unassigned, [place] [facility] 1.2.840.114 350.1.13.10 4.2.7.2.686 [id number] [facility] 2021-01-13 08:35:32 2021-01-13 09:20:50 Office Visit Shilpa Bourgeois [facility] 1.2.840.114 350.1.13.10 4.2.7.2.686 [id number] [facility] 2021-01-13 09:00:00 2021-01-13 09:00:00 [id number] 2021-01-13 00:00:00 2021-01-13 00:00:00 Orders Only Doctor Unassigned, [place] [facility] 1.2.840.114 350.1.13.10 4.2.7.2.686 [id number] [facility] 2021-01-13 00:00:00 2021-01-13 00:00:00 Letter (Out) Doctor Unassigned, [place] [facility] [id number] [id number] [id number] [facility] 2021-01-13 00:00:00 2021-01-13 00:00:00 Letter (Out) Doctor Unassigned, [place] [facility] [id number] [id number] [id number] [id number] [facility] 2021-01-04 00:00:00 2021-01-04 00:00:00 Case Management Shilpa Bourgeois [facility] [id number] [id number] [id number] [facility] 2021-01-03 00:00:00 2021-01-03 00:00:00 Outpatient [facility]C ST[facility] [id number] [facility] 2020-12-21 00:00:00 2020-12-21 00:00:00 Outpatient [facility] [id number] [facility] 2020-11-16 00:00:00 2020-11-16 00:00:00 Outpatient [facility]C ST[facility]C [id number] [facility] 2020-11-10 00:00:00 2020-11-10 00:00:00 Outpatient [facility]C ST[facility]C [id number] [facility] 2020-10-12 00:00:00 2020-10-12 00:00:00 Outpatient [facility]LMLC STL[facility]C [id number] [facility] 2020-10-11 00:00:00 2020-10-11 00:00:00 Outpatient [facility]LMLC STLMLC [id number] [facility] 2020-09-30 00:00:00 2020-09-30 00:00:00 Outpatient [facility]LMLC STLMLC [id number] [facility] 2020-09-29 00:00:00 2020-09-29 00:00:00 Outpatient STLMLC STLMLC [id number] [facility] 2020-09-14 00:00:00 2020-09-14 00:00:00 Outpatient [facility]LMLC STLMLC [id number] [facility] 2020-09-14 00:00:00 2020-09-14 00:00:00 Outpatient STLMLC STLMLC [id number] [facility] 2020-09-14 00:00:00 2020-09-14 00:00:00 Outpatient STLMLC STLMLC [id number] [facility] 2020-09-13 00:00:00 2020-09-13 00:00:00 Outpatient STLMLC STLMLC [id number] [facility] 2020-06-24 09:50:00 2020-06-24 09:50:00 Outpatient [facility] [id number] [facility] 2020-06-09 16:32:00 2020-06-09 16:32:[address] [facility] [id number] [facility] 2020-05-28 11:43:00 2020-05-28 11:43:[address] [facility] [id number] [facility] 2020-04-13 09:20:00 2020-04-13 09:20:[address] [facility] [id number] [facility] 2020-03-10 16:01:00 2020-03-10 16:01:[address] [facility] [id number] [facility] 2020-01-25 13:49:00 2020-01-25 13:49:[address] [facility] [id number] [facility] 2020-01-02 09:45:00 2020-01-02 09:45:[address] [facility] [id number] [facility] 2019-12-02 09:15:00 2019-12-02 09:15:[address] [facility] [id number] [facility] 2019-11-17 14:50:00 2019-11-17 14:50:[address] [facility] [id number] [facility] 2019-09-26 10:00:00 2019-09-26 10:00:[address] [facility] [id number] [facility] 2019-07-22 11:05:00 2019-07-22 11:05:[address] [facility] [id number] [facility] 2019-06-30 10:20:00 2019-06-30 10:20:00 [facility] [address] [facility] [id number] [facility] 2019-04-17 20:26:00 2019-04-17 20:26:[address] [facility] [id number] [facility] 2019-04-16 15:58:00 2019-04-16 15:58:00 [facility] [address] [facility] [id number] [facility] 2019-03-03 13:58:00 2019-03-03 13:58:00 [facility] [id number] [facility] 2019-01-17 15:47:00 2019-01-17 15:47:00 [facility] [id number] [facility] 2019-01-17 11:15:00 2019-01-17 11:15:00 [facility] [id number] [facility] 2019-01-10 01:41:00 2019-01-10 01:41:00 [facility] [id number] [facility] 2019-01-08 10:30:00 2019-01-08 10:30:00 [facility] [id number] [facility] 2018-12-26 14:36:00 2018-12-26 14:36:00 [facility] [id number] [facility] 2018-12-25 11:15:00 2018-12-25 11:15:00 [facility] [address] [facility] [id number] [facility] 2018-11-12 09:15:00 2018-11-12 09:15:00 [facility] [id number] [facility] 2018-10-09 08:00:00 2018-10-09 08:00:[address] [facility] [id number] [facility] 2018-07-30 15:53:00 2018-07-30 15:53:[address] [facility] [id number] [facility] 2018-07-29 09:10:00 2018-07-29 09:10:[address] [facility] [id number] [facility] 2018-05-28 11:00:00 2018-05-28 11:00:[address] [facility] [id number] [facility] 2018-04-10 08:24:00 2018-04-10 08:24:[address] [facility] [id number] [facility] 2018-04-02 09:00:00 2018-04-02 09:00:[address] [facility] [id number] [facility] 2018-04-01 14:33:00 2018-04-01 14:33:[address] [facility] [id number] [facility] 2018-03-21 08:55:00 2018-03-21 08:55:[address] [facility] [id number] [facility] 2018-03-19 09:30:00 2018-03-19 09:30:[address] [facility] [facility] [id number] [facility] Results Test Description Test Time Test Comments Results Result Co mments Source CBC W/AUTO [id number] 00:00:00* Test Item Value Reference Range Interpretation Comme nts NUCLEATED RBCS (test code = 32557-0) 0.0 /100 WBC'S See_Comment [Automated messa ge] The system which generated this result transmitted reference range: 0.0 /100 WBC'S. The reference range was not used to interpret this result as normal/abnormal. ABSOLUTE EOSINOPHILS (test code = 21230-6) 0.25 K/UL See_Comment [Automated messa ge] The system which generated this result transmitted reference range: 0.00-0.50 K/UL. The reference range was not used to interpret this result as normal/abnormal. ABSOLUTE LYMPHOCYTES (test code = 35607-6) 2.14 K/UL See_Comment [Automated messa ge] The system which generated this result transmitted reference range: 1.00-4.00 K/UL. The reference range was not used to interpret this result as normal/abnormal. ABSOLUTE MONOCYTES (test code = 14119-5) 0.61 K/UL See_Comment [Automated messa ge] The system which generated this result transmitted reference range: 0.20-1.00 K/UL. The reference range was not used to interpret this result as normal/abnormal. ABSOLUTE NEUTROPHILS (test code = 98424-2) 5.26 K/UL See_Comment [Automated messa ge] The system which generated this result transmitted reference range: 1.50-7.50 K/UL. The reference range was not used to interpret this result as normal/abnormal. BASOPHILS (test code = 01946-3) 0.6 % EOSINOPHILS (test code = 28564-5) 3.0 % HEMATOCRIT (test code = 50227-7) 30.4 % See_Comment L [Automated messa ge] The system which generated this result transmitted reference range: 34.0-45.0 %. The reference range was not used to interpret this result as normal/abnormal. HEMOGLOBIN (test code = 718-7) 10.1 G/DL See_Comment L [Automated messa ge] The system which generated this result transmitted reference range: 11.5-15.5 G/DL. The reference range was not used to interpret this result as normal/abnormal. LYMPHOCYTES (test code = 43814-3) 25.7 % MCH (test code = 98442-7) 30.6 PG See_Comment [Automated messa ge] The system which generated this result transmitted reference range: 25.0-33.0 PG. The reference range was not used to interpret this result as normal/abnormal. MCHC (test code = 31722-4) 33.2 G/DL See_Comment [Automated messa ge] The system which generated this result transmitted reference range: 31.0-36.0 G/DL. The reference range was not used to interpret this result as normal/abnormal. MCV (test code = 74293-7) 92.1 fL See_Comment [Automated messa ge] The system which generated this result transmitted reference range: 80.0-99.0 fL. The reference range was not used to interpret this result as normal/abnormal. MONOCYTES (test code = 86720-7) 7.3 % NEUTROPHILS (test code = 36001-7) 63.0 % PLATELET COUNT (test code = 29931-2) 221 K/UL See_Comment [Automated messa ge] The system which generated this result transmitted reference range: 130-400 K/UL. The reference range was not used to interpret this result as normal/abnormal. RBC (test code = 02596-3) 3.30 M/UL See_Comment L [Automated messa ge] The system which generated this result transmitted reference range: 3.80-5.40 M/UL. The reference range was not used to interpret this result as normal/abnormal. RDW (test code = 50240-6) 14.1 % See_Comment [Automated messa ge] The system which generated this result transmitted reference range: 11.5-15.0 %. The reference range was not used to interpret this result as normal/abnormal. WBC (test code = 88917-0) 8.3 K/UL See_Comment [Automated messa ge] The system which generated this result transmitted reference range: 3.5-11.0 K/UL. The reference range was not used to interpret this result as normal/abnormal. CULTURE, [id number] 00:00:00* Test Item Value Reference Range Interpretation Comme nts CULTURE, URINE (test code = 630-4) SPECIMEN NUMBER: [id number] CBC W/AUTO [id number] 00:00:00* Test Item Value Reference Range Interpretation Comme nts NUCLEATED RBCS (test code = 28985-9) 0.0 /100 WBC'S See_Comment [Automated messa ge] The system which generated this result transmitted reference range: 0.0 /100 WBC'S. The reference range was not used to interpret this result as normal/abnormal. ABSOLUTE EOSINOPHILS (test code = 87699-4) 0.27 K/UL See_Comment [Automated messa ge] The system which generated this result transmitted reference range: 0.00-0.50 K/UL. The reference range was not used to interpret this result as normal/abnormal. ABSOLUTE LYMPHOCYTES (test code = 12271-1) 1.99 K/UL See_Comment [Automated messa ge] The system which generated this result transmitted reference range: 1.00-4.00 K/UL. The reference range was not used to interpret this result as normal/abnormal. ABSOLUTE MONOCYTES (test code = 09489-9) 0.75 K/UL See_Comment [Automated messa ge] The system which generated this result transmitted reference range: 0.20-1.00 K/UL. The reference range was not used to interpret this result as normal/abnormal. ABSOLUTE NEUTROPHILS (test code = 06940-0) 6.41 K/UL See_Comment [Automated messa ge] The system which generated this result transmitted reference range: 1.50-7.50 K/UL. The reference range was not used to interpret this result as normal/abnormal. BASOPHILS (test code = 11357-5) 0.5 % EOSINOPHILS (test code = 10439-4) 2.8 % HEMATOCRIT (test code = 31682-7) 33.8 % See_Comment L [Automated messa ge] [...] result as normal/abnormal. LYMPHOCYTES (test code = 17246-9) 21.0 % MCH (test code = 80055-3) 29.7 PG See_Comment [Automated messa ge] The system which generated this result transmitted reference range: 25.0-33.0 PG. The reference range was not used to interpret this result as normal/abnormal. MCHC (test code = 69199-2) 32.0 G/DL See_Comment [Automated messa ge] The system which generated this result transmitted reference range: 31.0-36.0 G/DL. The reference range was not used to interpret this result as normal/abnormal. MCV (test code = 51602-0) 92.9 fL See_Comment [Automated messa ge] The system which generated this result transmitted reference range: 80.0-99.0 fL. The reference range was not used to interpret this result as normal/abnormal. MONOCYTES (test code = 31096-0) 7.9 % NEUTROPHILS (test code = 95849-5) 67.6 % PLATELET COUNT (test code = 77829-9) 231 K/UL See_Comment [Automated messa ge] The system which generated this result transmitted reference range: 130-400 K/UL. The reference range was not used to interpret this result as normal/abnormal. RBC (test code = 79553-3) 3.64 M/UL See_Comment L [Automated messa ge] The system which generated this result transmitted reference range: 3.80-5.40 M/UL. The reference range was not used to interpret this result as normal/abnormal. RDW (test code = 11262-4) 13.7 % See_Comment [Automated messa ge] The system which generated this result transmitted reference range: 11.5-15.0 %. The reference range was not used to interpret this result as normal/abnormal. WBC (test code = 91308-9) 9.5 K/UL See_Comment [Automated messa ge] The system which generated this result transmitted reference range: 3.5-11.0 K/UL. The reference range was not used to interpret this result as normal/abnormal. CBC W/AUTO [id number] 00:00:00* Test Item Value Reference Range Interpretation Comme nts NUCLEATED RBCS (test code = 57928-6) 0.0 /100 WBC'S See_Comment [Automated messa ge] The system which generated this result transmitted reference range: 0.0 /100 WBC'S. The reference range was not used to interpret this result as normal/abnormal. ABSOLUTE EOSINOPHILS (test code = 38674-1) 0.32 K/UL See_Comment [Automated messa ge] The system which generated this result transmitted reference range: 0.00-0.50 K/UL. The reference range was not used to interpret this result as normal/abnormal. ABSOLUTE LYMPHOCYTES (test code = 19242-3) 2.60 K/UL See_Comment [Automated messa ge] The system which generated this result transmitted reference range: 1.00-4.00 K/UL. The reference range was not used to interpret this result as normal/abnormal. ABSOLUTE MONOCYTES (test code = 71552-1) 0.60 K/UL See_Comment [Automated messa ge] The system which generated this result transmitted reference range: 0.20-1.00 K/UL. The reference range was not used to interpret this result as normal/abnormal. ABSOLUTE NEUTROPHILS (test code = 57054-8) 6.76 K/UL See_Comment [Automated messa ge] The system which generated this result transmitted reference range: 1.50-7.50 K/UL. The reference range was not used to interpret this result as normal/abnormal. BASOPHILS (test code = 94866-6) 0.9 % EOSINOPHILS (test code = 38476-3) 3.1 % HEMATOCRIT (test code = 18276-1) 32.8 % See_Comment L [Automated messa ge] [...] result as normal/abnormal. LYMPHOCYTES (test code = 39702-4) 25.0 % MCH (test code = 48581-1) 29.6 PG See_Comment [Automated messa ge] The system which generated this result transmitted reference range: 25.0-33.0 PG. The reference range was not used to interpret this result as normal/abnormal. MCHC (test code = 36552-3) 32.6 G/DL See_Comment [Automated messa ge] The system which generated this result transmitted reference range: 31.0-36.0 G/DL. The reference range was not used to interpret this result as normal/abnormal. MCV (test code = 69929-8) 90.9 fL See_Comment [Automated messa ge] The system which generated this result transmitted reference range: 80.0-99.0 fL. The reference range was not used to interpret this result as normal/abnormal. MONOCYTES (test code = 86357-2) 5.8 % NEUTROPHILS (test code = 49836-2) 64.9 % PLATELET COUNT (test code = 34293-9) 208 K/UL See_Comment [Automated messa ge] The system which generated this result transmitted reference range: 130-400 K/UL. The reference range was not used to interpret this result as normal/abnormal. RBC (test code = 82993-3) 3.61 M/UL See_Comment L [Automated messa ge] The system which generated this result transmitted reference range: 3.80-5.40 M/UL. The reference range was not used to interpret this result as normal/abnormal. RDW (test code = 73250-2) 13.0 % See_Comment [Automated messa [employer]] The system which generated this result transmitted reference range: 11.5-15.0 %. The reference range was not used to interpret this result as normal/abnormal. WBC (test code = 78012-2) 10.4 K/UL See_Comment [Automated messa ge] The system which generated this result transmitted reference range: 3.5-11.0 K/UL. The reference range was not used to interpret this result as normal/abnormal. US PELVIS COMPLETE WITH [id number] 23:04:561. ?Simple cyst in the left ovary [...] colorDoppler evaluation of the pelvis was performed. Cement Finishing Supervisor images wereobtained for the record. COMPARISON: None [...] colorDoppler evaluation of the pelvis was performed. Cement Finishing Supervisor images wereobtained for the record. COMPARISON: NoneFINDINGS:STATEMENT: [...] reviewed this study and agree with theabove report.[facility] S[facility] KAILASH BILAT W/CAD3D SCR KAILASH [...] verbalized understanding to all. Members Preferred Language Azeri Patient Currently Located in their home state of [place], YES DIAGNOSIS [id number] - Major depressive disorder, single episode, in partial mzwviudxtK06.01 - Morbid (severe) obesity due to excess aksfcqmoK93.32 - Chronic kidney disease, stage 3bZ68.38 - Body mass index [BMI] 38.0-38.9, xwrjeE56.5 - Hyperlipidemia, ybsyxkfjaabA59.9 - Hypertensive chronic kidney disease with stage 1 through stage 4 chronic kidney disease, or unspecified chronic kidney zsntkpqV93.909 - Unspecified asthma, pwhdwnogaasvrR57.9 - Gastro-esophageal reflux disease without offqaomkgpqE10.90 - Unspecified osteoarthritis, unspecified site PATIENT INTAKE [...] self or others. - Followed by PCP.DISCUSSED: Criminal Justice Social Worker the patient on the role of continued [...] patient use home health, physical therapy or care home services?: No New orders, referrals, or any [...] / PPIs. - Followed with PCP and printing bindery assistant appointment.ACTION: Confirm that the patient is on an KHALIDA inhibitor or ARBACTION: Discuss with the patient that referral to a printing bindery assistant is needed if the patient progresses to [...] obesity due to excess calories Notes for E66.: - BMI 38.73 morbid obesity, dx with [...] or unspecified chronic kidney disease Notes for I12.9: - Patient with HTN with CKD. - [...] Gastro-esophageal reflux disease without esophagitis Notes for K21.9: - Currently taking pantoprazole for symptoms of [...] of tapering PPI after 6 months given shelter potential malabsorption issues and GI infections DISCUSSED: Counseled patient on switching between PPIs for better effect Dx: M19.90 - Unspecified osteoarthritis, unspecified site Notes for M19.90: - Currently with joint pain of knees. [...] Visit Time: More than 20 minutes Germaine Laboy [facility]
[2024-09-16 16:02] LABS: Absolute Basophils 0.1 K/uL (0-0.5); Absolute Eosinophils 0.3 K/uL (0-0.5); Absolute Lymphocytes (CBC) 2.7 K/uL (0.7-4.9); Absolute Monocytes 0.8 K/uL (0.1-1.3); Basophils % 1.2 % (0-1.3); Eosinophils % 2.6 % (0-4.4); Hematocrit 34.7 % (36.0-45.0); Hemoglobin 11.3 g/dL (12.0-15.0); Lymphocytes % 27.2 % (15.3-44.8); MCH 29.9 pg (27.0-35.0); MCHC 32.6 g/dL (32.0-36.0); MCV 91.9 fL (80-100); MPV 11.7 fL (7.6-11.3); Monocytes % 7.9 % (3.3-12.3); Neutrophils % 61.1 % (41.7-73.7); Platelets 255 thou/uL (152-406); RBC Red Blood Cell Count 3.78 M/uL (3.86-4.86); Red Cell Distribution Width 15.1 % (12.1-15.2)
[2024-09-16 16:07] LABS: ALT/SGPT 21 U/L (13-56); AST/SGOT 13 U/L (15-37); Albumin 3.7 g/dL (3.4-5.0); Albumin/Globulin Ratio 0.9 (1.1-1.8); Alkaline Phosphatase 71 U/L (45-117); Anion Gap 9.1 mEq/L (5.0-15.0); BUN Blood Urea Nitrogen 17 mg/dL (7-18); Bicarbonate 24 mEq/L (21-32); Bilirubin Total 0.4 mg/dL (0.2-1.0); Globulin 4.2 g/dL (2.3-3.5); Glomerular Filtration Rate 38 ml/min (=/>90); Glucose Level 93 mg/dL (74-106); NT PRO-BNP 68 pg/mL (<125); Potassium 4.1 mEq/L (3.5-5.1); Protein, Total 7.9 g/dL (6.4-8.2); Sodium Level 138 mEq/L (136-145); Troponin High Sensitivity 13.2 pg/mL (<58.9)
[2024-09-16 16:10] LABS: Bilirubin Direct < 0.2 mg/dL (0-0.2); Bilirubin Indirect, Calculated 0.2 mg/dL (0.2-0.8)
--- NOTE | 2024-09-16 16:23 | RAD REPORT ---
Procedure: Chest Single View HISTORY: Swelling COMPARISON: July 2024 FINDINGS: The lungs appear clear of acute infiltrate. No significant pleural effusion noted. The heart is probably borderline enlarged. IMPRESSION: No acute abnormality is displayed.
[2024-09-16] MEDS ORDERED: FUROSEMIDE 20 MG/ 2ML VIAL ONE (16:51)
--- NOTE | 2024-09-16 17:28 | RAD REPORT ---
EXAMINATION: US bilateral LOWER EXTREMITY VENOUS DOPPLER CLINICAL INDICATION: Leg pain TECHNIQUE: Sonographic evaluation of the veins of the lower extremity bilaterally formed.Grayscale, c olor and spectral analysis performed on all vessels COMPARISON: July 2024 FINDINGS: The common femoral, superficial femoral, greater saphenous, popliteal and posterior tibial veins bila terally are compressible and demonstrate augmentation. Doppler demonstrates good flow. IMPRESSION: No evidence of deep venous thrombosis involving either lower extremity
--- NOTE | 2024-09-16 17:33 | ER ---
Nurse's Notes [facility] Name: Sergio Otero Age: 63 yrs Sex: Female : 1960 Arrival Date: 09/16/2024 Time: 14:56 Bed 10 Private MD: Diagnosis: Edema, unspecified Presentation: 09/16 15:19 Chief complaint: Patient states: cici ankle swelling and pain X 1 week. Coronavirus iw screen: At this time, the client does not indicate any symptoms associated with coronavirus-19. Ebola Screen: No symptoms or risks identified at this time. Initial Sepsis Screen: Does the patient meet any 2 criteria? No. Patient's initial sepsis screen is negative. Does the patient have a suspected source of infection? No. Patient's initial sepsis screen is negative. Risk Assessment: Do you want to hurt yourself or someone else? Patient reports no desire to harm self or others. Onset of symptoms was September 09, 2024. 15:19 Method Of Arrival: Wheelchair iw 15:19 Acuity: SIMONE 3 iw Historical: - Allergies: 15:21 Adhesives; iw - PMHx: 15:21 Gout; Hyperlipidemia; Hypertension; kidney function is low; Sickle Cell Trait; iw - PSHx: 15:21 adrenal gland removed; section; foot; Shoulder (Gout); iw Screenin:36 [facility] ED Fall Risk Assessment (Adult) History of falling in the last 3 months, jb4 including since admission No falls in past 3 months (0 pts) Confusion or Disorientation No (0 pts) Intoxicated or Sedated No (0 pts) Impaired Gait No (0 pts) Mobility Assist Device Used No (0 pt) Altered Elimination No (0 pt) Score/Fall Risk Level 0 - 2 = Low Risk Oriented to surroundings, Maintained a safe environment. Abuse screen: Denies threats or abuse. Nutritional screening: No deficits noted. Tuberculosis screening: No symptoms or risk factors identified. Assessment: 15:36 General: Appears in no apparent distress. comfortable, Behavior is calm, cooperative, jb4 appropriate for age. Pain: Complains of pain in CICI ankles Pain does not radiate. Pain currently is 9 out of 10 on a pain scale. Neuro: Level of Consciousness is awake, alert, obeys commands, Oriented to person, place, time, situation. Cardiovascular: Patient's skin is warm and dry. Respiratory: Airway is patent Respiratory effort is even, unlabored, Respiratory pattern is regular, symmetrical. GI: No signs and/or symptoms were reported involving the gastrointestinal system. : No signs and/or symptoms were reported regarding the genitourinary system. EENT: No signs and/or symptoms were reported regarding the EENT system. Derm: Skin is intact, Skin is pink, warm \T\ dry. Musculoskeletal: Circulation, motion, and sensation intact. Range of motion: intact in all extremities. Vital Signs: 15:19 Resp 18 S; Temp 98.4; iw 15:36 BP 163 / 73; Pulse 70; Resp 17; Pulse Ox 100% on R/A; Pain 9/10; jb4 16:54 BP 178 / 83; Pulse 72; Resp 16; Pulse Ox 100% on R/A; jb4 15:36 Pain Scale: Adult jb4 ED Course: 15:00 Patient arrived in ED. mg5 15:16 [facility] Cody [facility]C [facility]. kb 15:16 Jairon Zepeda MD is Attending Physician. kb 15:21 Triage completed. iw 15:21 Arm band placed on. iw 15:28 Inserted saline lock: 22 gauge in right forearm, using aseptic technique. Blood jb4 collected. 15:33 Terri Moran, RN is Primary Nurse. iw 15:36 Patient has correct armband on for positive identification. Bed in low position. Call jb4 light in reach. Side rails up X 1. Provided Education on: plan of care. Client placed on continuous cardiac and pulse oximetry monitoring. NIBP monitoring applied. alarm security or surveillance monitor on. Pulse ox on. 15:36 Basic Metabolic Panel Sent. jb4 15:36 CBC with Diff Sent. jb4 15:36 LFT's Sent. jb4 15:36 NT PRO-BNP Sent. jb4 15:36 Troponin HS Sent. jb4 16:12 XRAY Chest (1 view) In Process Unspecified. EDMS 17:26 US Extremity Venous W Compression Cici In Process Unspecified. EDMS 17:55 No provider procedures requiring assistance completed. IV discontinued, intact, jb4 bleeding controlled, No redness/swelling at site. Pressure dressing applied. Administered Medications: 16:54 Drug: Furosemide IVP 20 mg IVP once; give over 2 minutes Route: IVP; Site: right jb4 forearm; 17:56 Follow up: Response: No adverse reaction jb4 Medication: 17:55 VIS not applicable for this client. jb4 Outcome: 17:33 Discharge ordered by MD. ibanez 17:55 Discharged to home ambulatory, jb4 17:55 Condition: stable 17:55 Discharge instructions given to patient, Instructed on discharge instructions, follow up and referral plans. Demonstrated understanding of instructions, follow-up care, 17:56 Patient left the ED. jb4 Signatures: Dispatcher [employer] EDXenia Recio FNP-C FNP-Terri Khan, RN RN Jose Luis Lozoya RN RN jb4 Karyn Gómez mg5 Corrections: (The following items were deleted from the chart) 17:56 17:55 Patient did not have IV access during this emergency room visit. jb4 jb4
--- NOTE | 2024-09-16 17:34 | EDPHYS ---
Physician Documentation [facility] Name: Sergio Otero Age: 63 yrs Sex: Female : 1960 Arrival Date: 09/16/2024 Time: 14:56 Bed 10 Private MD: ED Physician Jairon Zepeda HPI: 09/16 17:09 This 63 yrs old Black Female presents to ER via Wheelchair with complaints of Ankle kb Swelling. 17:09 Pt is a 63 year old female who presents for swelling to bilateral lower extremities kb that started one week ago. States elevating feet has no effect on swelling. Denies shortness of breath. Historical: - Allergies: 15:21 Adhesives; iw - PMHx: 15:21 Gout; Hyperlipidemia; Hypertension; kidney function is low; Sickle Cell Trait; iw - PSHx: 15:21 adrenal gland removed; section; foot; Shoulder (Gout); iw ROS: 17:09 Constitutional: As per HPI kb Exam: 16:02 Constitutional: This is a well developed, well nourished patient who is awake, alert, kb and in no acute distress. Head/Face: Normocephalic, atraumatic. ENT: Moist Mucous membranes Cardiovascular: Regular rate Respiratory: Respirations even and unlabored. No increased work of breathing. Talking in full sentences Abdomen/GI: Soft, non-tender. No distention Skin: Warm, dry with normal turgor. Normal color. MS/ Extremity: Pulses equal, no cyanosis. Neurovascular intact. Full, normal range of motion. Neuro: Awake and alert, GCS 15, oriented to person, place, time, and situation. 16:02 Cardiovascular: Edema: 1+ to bilateral lower extremities, 16:02 ECG was reviewed by the Attending Physician. Vital Signs: 15:19 Resp 18 S; Temp 98.4; iw 15:36 BP 163 / 73; Pulse 70; Resp 17; Pulse Ox 100% on R/A; Pain 9/10; jb4 16:54 BP 178 / 83; Pulse 72; Resp 16; Pulse Ox 100% on R/A; jb4 15:36 Pain Scale: Adult jb4 MDM: 15:16 Medical Screening Exam initiated kb 17:10 Differential diagnosis: kidney failure, CHF, pulmonary edema, DVT. Data reviewed: vital kb signs, nurses notes. 17:32 Counseling: I had a detailed discussion with the patient and/or guardian regarding the kb historical points, exam findings, and any diagnostic results supporting the discharge/admit diagnosis, lab results, radiology results, the need for outpatient follow up, a family practitioner, to return to the emergency department if symptoms worsen or persist or if there are any questions or concerns that arise at home. ED course: Pt requested a dose of lasix. States she was on it in the past, but has been off of it for some time. Educated on diagnostic results and need for follow up with PCP. Verbal understanding received. . 09/16 15:20 Order name: Basic Metabolic Panel; Complete Time: 16:13 kb 09/16 15:20 Order name: CBC with Diff; Complete Time: 16:18 kb 09/16 15:20 Order name: LFT's; Complete Time: 16:13 kb 09/16 15:20 Order name: NT PRO-BNP; Complete Time: 16:13 kb 09/16 15:20 Order name: Troponin HS; Complete Time: 16:13 kb 09/16 15:20 Order name: XRAY Chest (1 view); Complete Time: 16:24 kb 09/16 16:24 Order name: US Extremity Venous W Compression Manjeet; Complete Time: 17:30 kb 09/16 15:20 Order name: Cardiac monitoring; Complete Time: 15:36 kb 09/16 15:20 Order name: EKG - Nurse/Tech; Complete Time: 15:36 kb 09/16 15:20 Order name: IV Saline Lock; Complete Time: 15:36 kb 09/16 15:20 Order name: Labs collected and sent; Complete Time: 15:36 kb 09/16 15:20 Order name: O2 Per Protocol; Complete Time: 15:36 kb 09/16 15:20 Order name: O2 Sat Monitoring; Complete Time: 15:36 kb EC:02 Rate is 69 beats/min. Rhythm is regular. QRS Katy is Normal. CT interval is normal at kb 158 msec. QRS interval is normal at 78 msec. QT interval is normal at 413 msec. Administered Medications: 16:54 Drug: Furosemide IVP 20 mg IVP once; give over 2 minutes Route: IVP; Site: right jb4 forearm; 17:56 Follow up: Response: No adverse reaction jb4 Disposition: 09/17 07:49 Co-signature as Attending Physician, Jairon Zepeda MD I reviewed the patient's care rn provided by the Advanced Practice Provider and agree with the diagnosis and treatment plan. Disposition Summary: 09/16/24 17:33 Discharge Ordered Notes: Location: Home kb Condition: Stable kb Diagnosis - Edema, unspecified kb Followup: kb - With: Emergency Department - When: As needed - Reason: Worsening of condition Followup: kb - With: Private Physician - When: 2 - 3 days - Reason: Recheck today's complaints, Continuance of care, Re-evaluation by your physician Discharge Instructions: - Discharge Summary Sheet kb - Peripheral Edema kb Forms: - Medication Reconciliation Form kb - Antibiotic Education kb - Prescription Opioid Use kb - Patient Portal Instructions kb - Leadership Thank You Letter kb Signatures: Dispatcher [employer] EDXenia Recio FNP-Lenora SIFUENTESP-Terri Khan, RN Jairon Raymond MD MD rn Bryson, James, RN RN jb4 Corrections: (The following items were deleted from the chart) 09/16 15:21 15:21 BASIC METABOLIC PANEL+C.LAB.BRZ ordered. EDMS EDMS 15:21 15:21 CBC+H.LAB.BRZ ordered. EDMS EDMS 15:21 15:21 HEPATIC FUNCTION+C.LAB.BRZ ordered. EDMS EDMS 15:21 15:21 PROBNP+C.LAB.BRZ ordered. EDMS EDMS 15:21 15:21 Troponin High Sensitivity+C.LAB.BRZ ordered. EDMS EDMS 15:21 15:21 Chest Single View+RAD.RAD.BRZ ordered. EDMS EDMS
[2024-09-16 22:49] VITALS: TEMP 98.4
[2024-09-16 22:50] VITALS: O2SAT 100
[2024-09-16 22:52] VITALS: BP 178/83
--- NOTE | 2024-09-17 11:33 | EKG ---
Test Date: 2024-09-16 Test Time: 15:30:37 Machine Paint Mixer: MYRNA MEASUREMENT RESULTS: Intervals: Rate: 69 TX: 158 QRSD: 78 QT: 386 QTc: 413 [place]: P: 40 TX: 158 QRS: 51 T: -60 INTERPRETIVE STATEMENTS: Normal sinus rhythm Nonspecific T wave abnormality Abnormal ECG Compared to ECG 08/06/2024 18:26:14 T-wave abnormality now present ST (T wave) deviation no longer present Electronically Signed On 09-17-24 11:31:21 CONTROLS ENGINEER by Geovanni Doran
== END 2024-09-16 17:56 | disposition home or self-care (01) ==
LOC: ER 14:56
DX: R60.9 Edema, unspecified (principal); I10 Essential (primary) hypertension
CPT/HCPCS: 93005; 85025; 80048; 36415; 80076; 84484; 83880; 71045; 93970; 96374; 99285; J1940

== ENCOUNTER 2024-11-14 10:42 | Emergency (ER) | payer OTHER ==
--- OUTSIDE RECORDS SUMMARY | 2024-11-14 10:46 | XMS REPORT | Continuity of Care Document ---
Author Name Unknown Address [address] [facility] [address] [place] [id number] [facility] Address [address] [facility] [address] [place] [address] Care Team Providers Care Recreation Attendant Name Role Phone Sudha Traore Primary Care Physician [phone] Karlee Colvin Attending Clinician Unavailable Sudha Traore Attending Clinician Unavailable Azar Watson Attending Clinician Unavailable Marissa Rodriguez Attending Clinician Unavailable Shilpa Stanley Attending Clinician [phone] Germaine Laboy Attending Clinician [phone] Anabelle Malik Attending Clinician Madonna Talavera Attending Clinician [email or web address]_Hollyyala_S Attending Clinician Unavaila ble Doctor Unassigned, [place] Attending Clinician U dariusailable SHILPA BOURGEOIS Attending Clinician Unavailable Taj_Ranjit Attending Clinician Unavailable Shilpa Bourgeois PA-C Attending Clinician [phone] SHIRA_GCBZW_Kadiyala_S Admitting Clinician Unavaila ble Adams_R Admitting Clinician Unavailable Payers Payer Name Policy Type Policy Number Effective Date Expirati on Date Source [employer] (MEDICARE REPLACEMENT HMO) [id number] 2021 00:00:00 [employer] Medicare Replace C1 [id number] [facility] [employer] Medicare Replace C1 [id number] [facility] [employer] Medicare Replace C1 [id number] [facility] [employer] Medicare Replace C1 [id number] [facility] [employer] Medicare Replace C1 [id number] [facility] Problems Condition Name Condition Details [...] different from the original. 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 Disease Active 12-11 00:00: 00 [facility] [id number] Family history of heart disease Problem [facility] Mixed hyperlipid emia Hyperlipid emia, mixed Problem [facility] Polyp colon Polyp of colon, unspecifie d part of colon, unspecifie d type Problem [facility] [id number] Generalize d weakness Problem [facility] [id number] Polyarthra lgia Problem [facility] Sickle cell trait Sickle-mateo l trait Problem [facility] [id number] Hyperurice davy Problem [facility] Pulmonary hypertensi on Pulmonary hypertensi on Problem [facility] [id number] Diverticul osis large intestine w/o perforatio n or abscess w/o bleeding Problem [facility] [id number] Pain in left foot Problem [facility] Iron deficiency anemia due to chronic blood loss Iron deficiency anemia due to chronic blood loss Problem [facility] [id number] Diverticul osis Problem [facility] Heel pain Heel pain Problem [facility] Glaucoma Other specified glaucoma Problem [facility] [id number] Pain in left leg Problem [facility] [id number] Pain in right leg Problem [facility] [id number] Tiredness Problem [facility] [id number] Legal blindness Problem [facility] [id number] Acute midline low back pain with left-sided sciatica Problem [facility] [id number] Acute gout of right foot, unspecifie d cause Problem [facility] Gout Gout Problem [facility] [id number] Urinary frequency Problem [facility] [id number] Depression with anxiety Problem [facility] [id number] 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, unspecifie d type Problem [facility] Blindness AND/OR vision impairment level (disorder) Blindness and low vision Problem [facility] Blindness, bilateral Blindness, bilateral Problem [facility] [id number] Lumbar spondylosi s Problem [facility] Chronic kidney disease stage 3A Stage 3a chronic kidney disease Problem [facility] [id number] Lumbar radiculopa thy Problem [facility] 74515280 Central stenosis of spinal canal Problem [facility] Spinal stenosis of lumbar region Spinal stenosis, lumbar region without neurogenic claudicati on Problem [facility] Lumbosacra l spondylosi s without myelopathy Other spondylosi s with radiculopa thy, lumbar region Problem [facility] 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 Problem [facility] [id number] Left adrenal mass Problem [facility] [id number] History of colon polyps Problem [facility] [id number] Gastroesop hageal reflux disease, unspecifie d whether esophagiti s present Problem [facility] 15795918 Other chronic pain Problem [facility] [id number] Injury of left acromiocla vicular joint, subsequent encounter Problem [facility] [id number] Pain, joint, shoulder, right Problem [facility] 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 Problem [facility] 309434444 Mild intermitte nt asthma without complicati on Problem [facility] Chronic kidney disease stage 3B (disorder) Stage 3b chronic kidney disease (CKD) Problem [facility] 92830809 Pain in right foot Problem [facility] 354633625 Memory changes Problem [facility] [id number] Pain, joint, ankle, right Problem [facility] 351885373 Pain in left ankle and joints of left foot Problem [facility] 753509474 Anemia in chronic kidney disease Problem [facility] Varicose vein Varicose vein Problem [facility] 005011580 Body mass index (BMI) of 40.0-44.9 in adult Problem [facility] Chronic renal disease Chronic renal disease Problem [facility] Essential hypertensi on Benign essential HTN Problem [facility] 564438156 Morbid obesity Problem [facility] 86738301 Iron deficiency anemia, unspecifie d iron deficiency anemia type Problem [facility] 511455550 Rash and nonspecifi c skin eruption Problem [facility] 45819109 Varicose veins of both lower extremitie s, unspecifie d whether complicate d Problem [facility] Obesity Obesity Problem [facility] Allergies, Adverse Reactions, Alerts Allergy Name Allergy Type Status Severity Reaction(s) Onset Date Inactive Date Treating Clinician Comments Source NO KNOWN ALLERGIE S Drug Class Active [facility] Social History Social Habit Start Date Stop Date Quantity Comments Source Exposure to SARS-CoV-2 (event) Not sure [facility] History of Tobacco Use [facility] Sex Assigned At [facility] Alcohol intake 2021-06-15 00:00:00 2021-06-15 00:00:00 Current non-drinker of alcohol (finding) [facility] Tobacco use and exposure 2010-12-11 00:00:00 2010-12-11 00:00:00 Smokeless tobacco non-user [facility] Smoking Status Start Date Stop Date Source Never Smoker [facility] Medications Ordered Medication Name Filled Medication Name Start Date Stop Date Current Medication? Ordering Clinician Indication Dosage Frequency Signature (SIG) Comments Components Source Rosuvastati n Calcium 10 MG Rosuvastati n Calcium 10 MG 05-13 00:00: 00 No 1{table t} QD Rosuvastat in Calcium 10 MG Lidocaine Lidocaine 2021-10 00:00: 00 No 20mg [facility] Kenalog (Triamcinol one) Kenalog (Triamcinol one) 2021-10 00:00: 00 No 40mg [facility] losartan (COZAAR) 25 mg [...] by mouth daily. [facility] pantoprazol e sodium 40 mg tablet pantoprazol [...] thoprim 800-160 mg tablet Yes [facility] dexamethaso ne 4 mg tablet dexamethaso ne 4 mg tablet Yes [facility] hydrocodone -acetaminop hen 5-325 mg tablet hydrocodone -acetaminop hen 5-325 mg tablet Yes [facility] chlorthalid one 25 mg tablet chlorthalid one 25 mg tablet Yes [facility] rosuvastati n calcium 10 mg tablet rosuvastati n calcium 10 mg tablet Yes [facility] amlodipine besylate [...] medoxomil 40 mg tablet Yes [facility] pantoprazol e sodium [address] pantoprazol e sodium [address] Yes [facility] allopurinol 100 mg tablet allopurinol 100 mg tablet Yes [facility] chlorthalid one 25 mg tablet chlorthalid one 25 mg tablet Yes [facility] albuterol sulfate hfa 108 (90 base) mcg/act aerosol soln albuterol sulfate hfa 108 (90 base) mcg/act aerosol soln Yes [facility] LUMIGAN 0.01 % SOLUTION LUMIGAN 0.01 % SOLUTION Yes [facility] ketoconazol e 2 % cream ketoconazol e 2 % cream Yes [facility] gabapentin 100 mg capsule gabapentin 100 mg capsule Yes [facility] rosuvastati n calcium 10 [...] 1{table t} QD Furosemide 20 MG Nystatin 226559 UNIT/GM Nystatin 338686 UNIT/GM No 1{appli cation} BID Nystatin 706321 UNIT/GM Olmesartan Medoxomil 20 MG Olmesartan Medoxomil 20 MG No 1{table t} QD Olmesartan Medoxomil 20 MG Vital Signs Vital Name Observation Time Observation Value Comments S funmilayo height 2024-09-03 13:20:00 64 [in_i] [facility] weight 2024-09-03 13:20:00 242 [lb_av] [facility] temperature 2024-09-03 13:20:00 97.1 [degF] Com [facility] bmi 2024-09-03 13:20:00 41.53 kg/m2 [facility] oximetry 2024-09-03 13:20:00 99 % [facility] respiratory rate 2024-09-03 13:20:00 16 /min [facility] blood pressure systolic 2024-09-03 13:20:00 130 mm[Hg] [facility] blood pressure diastolic 2024-09-03 13:20:00 82 mm[Hg] [facility] height 2024-08-13 14:00:00 64 [in_i] [facility] weight 2024-08-13 14:00:00 243 [lb_av] [facility] temperature 2024-08-13 14:00:00 97.2 [degF] Com [facility] bmi 2024-08-13 14:00:00 41.71 kg/m2 [facility] oximetry 2024-08-13 14:00:00 96 % [facility] respiratory rate 2024-08-13 14:00:00 16 /min [facility] blood pressure systolic 2024-08-13 14:00:00 120 mm[Hg] Common [facility] blood pressure diastolic 2024-08-13 14:00:00 62 mm[Hg] [facility] height 2024-07-29 13:00:00 64 [in_i] [facility] weight 2024-07-29 13:00:00 247 [lb_av] [facility] temperature 2024-07-29 13:00:00 97.3 [degF] Com [facility] bmi 2024-07-29 13:00:00 42.39 kg/m2 [facility] oximetry 2024-07-29 13:00:00 99 % [facility] respiratory rate 2024-07-29 13:00:00 16 /min [facility] height 2024-05-13 09:20:00 64 [in_i] [facility] weight 2024-05-13 09:20:00 240 [lb_av] [facility] temperature 2024-05-13 09:20:00 97.3 [degF] Com [facility] bmi 2024-05-13 09:20:00 41.19 kg/m2 [facility] oximetry 2024-05-13 09:20:00 99 % [facility] respiratory rate 2024-05-13 09:20:00 16 /min [facility] blood pressure systolic 2024-05-13 09:20:00 120 mm[Hg] [facility] blood pressure diastolic 2024-05-13 09:20:00 72 mm[Hg] [facility] height 2024-05-13 09:20:00 64 [in_i] [facility] weight 2024-05-13 09:20:00 240 [lb_av] [facility] temperature 2024-05-13 09:20:00 97.3 [degF] Com [facility] bmi 2024-05-13 09:20:00 41.19 kg/m2 [facility] oximetry 2024-05-13 09:20:00 99 % [facility] respiratory rate 2024-05-13 09:20:00 16 /min [facility] blood pressure systolic 2024-05-13 09:20:00 120 mm[Hg] [facility] blood pressure diastolic 2024-05-13 09:20:00 72 mm[Hg] Common [facility] height 2024-04-01 09:40:00 64 [in_i] [facility] weight 2024-04-01 09:40:00 232.8 [lb_av] Co [facility] temperature 2024-04-01 09:40:00 97.2 [degF] Com [facility] bmi 2024-04-01 09:40:00 39.96 kg/m2 [facility] oximetry 2024-04-01 09:40:00 99 % [facility] respiratory rate 2024-04-01 09:40:00 16 /min [facility] blood pressure systolic 2024-04-01 09:40:00 138 mm[Hg] [facility] blood pressure diastolic 2024-04-01 09:40:00 86 mm[Hg] [facility] height 2024-01-30 08:40:00 64 [in_i] [facility] weight 2024-01-30 08:40:00 236 [lb_av] [facility] temperature 2024-01-30 08:40:00 97.3 [degF] Com [facility] bmi 2024-01-30 08:40:00 40.5 kg/m2 [facility] oximetry 2024-01-30 08:40:00 98 % [facility] respiratory rate 2024-01-30 08:40:00 16 /min [facility] blood pressure systolic 2024-01-30 08:40:00 136 mm[Hg] [facility] blood pressure diastolic 2024-01-30 08:40:00 84 mm[Hg] [facility] height 2023-10-12 10:00:00 64 [in_i] [facility] weight 2023-10-12 10:00:00 242 [lb_av] [facility] temperature 2023-10-12 10:00:00 97.2 [degF] Com [facility] bmi 2023-10-12 10:00:00 41.53 kg/m2 [facility] oximetry 2023-10-12 10:00:00 98 % [facility] respiratory rate 2023-10-12 10:00:00 16 /min [facility] blood pressure systolic 2023-10-12 10:00:00 126 mm[Hg] [facility] blood pressure diastolic 2023-10-12 10:00:00 70 mm[Hg] [facility] height 2023-07-11 10:00:00 64 [in_i] [facility] weight 2023-07-11 10:00:00 240.0 [lb_av] [facility] temperature 2023-07-11 10:00:00 97.2 [degF] Com [facility] bmi 2023-07-11 10:00:00 41.19 kg/m2 [facility] oximetry 2023-07-11 10:00:00 99 % [facility] respiratory rate 2023-07-11 10:00:00 16 /min [facility] blood pressure systolic 2023-07-11 10:00:00 134 mm[Hg] [facility] blood pressure diastolic 2023-07-11 10:00:00 70 mm[Hg] [facility] height 2023-05-28 14:40:00 64 [in_i] [facility] weight 2023-05-28 14:40:00 240 [lb_av] [facility] temperature 2023-05-28 14:40:00 97.3 [degF] Com [facility] bmi 2023-05-28 14:40:00 41.19 kg/m2 [facility] oximetry 2023-05-28 14:40:00 99 % [facility] respiratory rate 2023-05-28 14:40:00 17 /min [facility] blood pressure systolic 2023-05-28 14:40:00 134 mm[Hg] [facility] blood pressure diastolic 2023-05-28 14:40:00 78 mm[Hg] [facility] height 2023-04-06 09:40:00 64 [in_i] [facility] weight 2023-04-06 09:40:00 242.2 [lb_av] [facility] temperature 2023-04-06 09:40:00 97.3 [degF] Com [facility] bmi 2023-04-06 09:40:00 41.57 kg/m2 [facility] oximetry 2023-04-06 09:40:00 98 % [facility] respiratory rate 2023-04-06 09:40:00 16 /min [facility] blood pressure systolic 2023-04-06 09:40:00 138 mm[Hg] [facility] blood pressure diastolic 2023-04-06 09:40:00 72 mm[Hg] [facility] height 2023-02-07 10:00:00 64 [in_i] [facility] weight 2023-02-07 10:00:00 246 [lb_av] [facility] temperature 2023-02-07 10:00:00 97.3 [degF] Com [facility] bmi 2023-02-07 10:00:00 42.22 kg/m2 [facility] oximetry 2023-02-07 10:00:00 99 % [facility] respiratory rate 2023-02-07 10:00:00 16 /min [facility] blood pressure systolic 2023-02-07 10:00:00 128 mm[Hg] [facility] blood pressure diastolic 2023-02-07 10:00:00 74 mm[Hg] [facility] height 2023-01-29 09:00:00 64 [in_i] [facility] weight 2023-01-29 09:00:00 250 [lb_av] [facility] temperature 2023-01-29 09:00:00 97.2 [degF] Com mon [facility] bmi 2023-01-29 09:00:00 42.91 kg/m2 [facility] blood pressure systolic 2023-01-29 09:00:00 131 mm[Hg] [facility] blood pressure diastolic 2023-01-29 09:00:00 71 mm[Hg] [facility] height 2022-11-24 08:20:00 64 [in_i] [facility] weight 2022-11-24 08:20:00 247 [lb_av] [facility] temperature 2022-11-24 08:20:00 97.6 [degF] Com mon [facility] bmi 2022-11-24 08:20:00 42.39 kg/m2 [facility] oximetry 2022-11-24 08:20:00 99 % [facility] respiratory rate 2022-11-24 08:20:00 16 /min [facility] blood pressure systolic 2022-11-24 08:20:00 130 mm[Hg] Common [facility] blood pressure diastolic 2022-11-24 08:20:00 70 mm[Hg] [facility] height 2022-11-08 09:00:00 64 [in_i] [facility] weight 2022-11-08 09:00:00 246.4 [lb_av] Co [facility] bmi 2022-11-08 09:00:00 42.29 kg/m2 [facility] height 2022-09-04 11:00:00 64 [in_i] [facility] weight 2022-09-04 11:00:00 246.4 [lb_av] Co [facility] temperature 2022-09-04 11:00:00 97.3 [degF] Com mon [facility] bmi 2022-09-04 11:00:00 42.29 kg/m2 [facility] oximetry 2022-09-04 11:00:00 98 % [facility] respiratory rate 2022-09-04 11:00:00 16 /min [facility] blood pressure systolic 2022-09-04 11:00:00 132 mm[Hg] Common [facility] blood pressure diastolic 2022-09-04 11:00:00 68 mm[Hg] [facility] height 2022-08-23 09:00:00 64 [in_i] [facility] weight 2022-08-23 09:00:00 242 [lb_av] [facility] temperature 2022-08-23 09:00:00 97.3 [degF] Com [facility] bmi 2022-08-23 09:00:00 41.53 kg/m2 [facility] blood pressure systolic 2022-08-23 09:00:00 132 mm[Hg] [facility] blood pressure diastolic 2022-08-23 09:00:00 80 mm[Hg] [facility] height 2022-08-02 09:00:00 64 [in_i] Com[facility] weight 2022-08-02 09:00:00 242 [lb_av] [facility] temperature 2022-08-02 09:00:00 97.3 [degF] Com [facility] bmi 2022-08-02 09:00:00 41.53 kg/m2 [facility] blood pressure systolic 2022-08-02 09:00:00 136 mm[Hg] [facility] blood pressure diastolic 2022-08-02 09:00:00 80 mm[Hg] [facility] height 2022-07-05 10:00:00 64 [in_i] [facility] weight 2022-07-05 10:00:00 240 [lb_av] [facility] temperature 2022-07-05 10:00:00 97.1 [degF] Com [facility] bmi 2022-07-05 10:00:00 41.19 kg/m2 [facility] blood pressure systolic 2022-07-05 10:00:00 136 mm[Hg] [facility] blood pressure diastolic 2022-07-05 10:00:00 84 mm[Hg] Common [facility] height 2022-05-30 10:00:00 64 [in_i] [facility] weight 2022-05-30 10:00:00 250.0 [lb_av] Co [facility] temperature 2022-05-30 10:00:00 97.6 [degF] Com mon [facility] bmi 2022-05-30 10:00:00 42.91 kg/m2 [facility] oximetry 2022-05-30 10:00:00 97 % [facility] respiratory rate 2022-05-30 10:00:00 18 /min [facility] blood pressure systolic 2022-05-30 10:00:00 136 mm[Hg] Common [facility] blood pressure diastolic 2022-05-30 10:00:00 70 mm[Hg] [facility] height 2022-02-24 10:00:00 64 [in_i] [facility] weight 2022-02-24 10:00:00 244.6 [lb_av] Co [facility] temperature 2022-02-24 10:00:00 97.2 [degF] Com [facility] bmi 2022-02-24 10:00:00 41.98 kg/m2 [facility] oximetry 2022-02-24 10:00:00 98 % [facility] respiratory rate 2022-02-24 10:00:00 18 /min [facility] blood pressure systolic 2022-02-24 10:00:00 135 mm[Hg] [facility] blood pressure diastolic 2022-02-24 10:00:00 82 mm[Hg] Common [facility] height 2022-01-16 10:20:00 64 [in_i] [facility] weight 2022-01-16 10:20:00 240 [lb_av] [facility] temperature 2022-01-16 10:20:00 97.8 [degF] Com mon [facility] bmi 2022-01-16 10:20:00 41.19 kg/m2 [facility] oximetry 2022-01-16 10:20:00 99 % [facility] respiratory rate 2022-01-16 10:20:00 18 /min [facility] blood pressure systolic 2022-01-16 10:20:00 136 mm[Hg] Common [facility] blood pressure diastolic 2022-01-16 10:20:00 82 mm[Hg] [facility] height 2021-11-16 09:00:00 64 [in_i] [facility] weight 2021-11-16 09:00:00 241 [lb_av] Comm [facility] bmi 2021-11-16 09:00:00 41.36 kg/m2 Comm [facility] height 2021-09-09 08:40:00 64 [in_i] [facility] weight 2021-09-09 08:40:00 241 [lb_av] Comm [facility] bmi 2021-09-09 08:40:00 41.36 kg/m2 [facility] height 2021-08-18 09:00:00 64 [in_i] [facility] weight 2021-08-18 09:00:00 241.0 [lb_av] Co [facility] temperature 2021-08-18 09:00:00 96.9 [degF] Com [facility] bmi 2021-08-18 09:00:00 41.36 kg/m2 [facility] oximetry 2021-08-18 09:00:00 99 % [facility] respiratory rate 2021-08-18 09:00:00 18 /min [facility] blood pressure systolic 2021-08-18 09:00:00 120 mm[Hg] [facility] blood pressure diastolic 2021-08-18 09:00:00 74 mm[Hg] [facility] Systolic blood pressure 2021-06-15 14:30:00 131 mm[Hg] [facility] Diastolic blood pressure 2021-06-15 14:30:00 75 mm[Hg] [place] [facility] Heart rate 2021-06-15 14:25:00 78 /min [facility] Body temperature 2021-06-15 14:25:00 36.78 [place] [facility] Respiratory rate 2021-06-15 14:25:00 18 /min [facility] Body height 2021-06-15 14:25:00 170.2 cm [facility] Body weight 2021-06-15 14:25:00 113.671 kg [facility] BMI 2021-06-15 14:25:00 39.25 kg/m2 [facility] Systolic blood pressure 2021-01-13 13:54:00 125 mm[Hg] [facility] Diastolic blood pressure 2021-01-13 13:54:00 69 mm[Hg] [facility] Heart rate 2021-01-13 13:54:00 75 /min [facility] Body temperature 2021-01-13 13:54:00 36.67 Mateo [facility] Respiratory rate 2021-01-13 13:54:00 16 /min [facility] Body height 2021-01-13 13:54:00 170.2 cm [facility] Body weight 2021-01-13 13:54:00 109.045 kg [facility] BMI 2021-01-13 13:54:00 37.65 kg/m2 [facility] Procedures Procedure Date / Time Performed Performing Clinician Source EXTERNAL PROVIDER RECORDS 2023-03-27 05:01:00 Do ctor Unassigned, Dilkon [facility] US PELVIS COMPLETE WITH TRANSVAGINAL 2021-05-11 15:20:44 Shilpa Bourgeois [facility] ASSIGNMENT OF BENEFITS 2021-05-11 13:41:33 Docto r Unassigned, Dilkon [facility] EXTERNAL PROVIDER RECORDS 2021-01-24 05:01:00 Do ctor Unassigned, Dilkon [facility] INSURANCE CORRESPONDENCE 2021-01-19 05:01:00 Doc tor Unassigned, Dilkon [facility] AUTHORIZATION TO RELEASE PHI TO [facility] 2021-01-13 05:01:00 Doctor Unassigned, Dilkon [facility] Encounters Start Date/Time End Date/Time Encounter Type Admission Type Attending [facility] Facility Care Department Encounter ID Source 2024-11-05 11:28:00 Outpatient ColvinKarlee shaw STLC STLC [id number] [facility] 2024-08-13 09:12:00 Outpatient ColvinKarlee STLC STLC [id number] [facility] 2024-07-29 10:28:00 Outpatient ColvinKarlee shaw STLC STLC [id number] [facility] 2024-05-09 10:19:00 Outpatient Colvin, Karlee STLC STLC [id number] [facility] 2024-01-28 09:20:00 Outpatient ColvinKarlee STLMLC STLMLC [id number] [facility] 2023-11-20 15:38:00 Outpatient Colvin Karlee STLMLC STLC [id number] [facility] 2023-10-11 15:49:00 Outpatient ColvinKatharinai STLC STLC [id number] [facility] 2023-10-10 11:02:00 Outpatient Col[facility]Katharinai STLC STLMLC [id number] [facility] [place] [facility] 2023-05-25 09:01:00 Outpatient Colvin, Karlee STLMLC STLMLC [id number] [facility] 2023-04-04 09:55:00 Outpatient ColvinKatharinai STLMLC STLMLC [id number] [facility] 2023-02-06 13:31:00 Outpatient Colvin, Karlee STLMLC STLMLC [id number] [facility] [place] [facility] 2023-02-05 16:18:00 Outpatient Colvin, Karlee STLMLC STLMLC [id number] [facility] [place] 2023-01-30 15:37:00 Outpatient ColvinKatharinai STLMLC STLMLC [id number] [facility] [place] 2022-11-24 09:46:00 Outpatient Colvin, Karlee STLMLC STLMLC [id number] [facility] [place] [facility] 2022-11-08 08:23:00 Outpatient Colvin, Karlee STLMLC STLMLC [id number] [facility] [place] 2022-11-07 15:16:00 Outpatient Col[facility]Katharinai STLMLC STLMLC [id number] [facility] [place] 2022-10-27 12:43:00 Outpatient Colvin, Karlee STLMLC STLMLC [id number] [facility] [place] 2022-08-31 11:26:00 Outpatient Traore, Na STLMLC STLMLC [id number] [facility] [place] 2022-08-02 09:07:01 Outpatient Traore, Na STLMLC STLMLC [id number] [facility] [place] [facility] 2022-07-06 09:32:00 Outpatient Traore, Na STLMLC STLMLC [id number] [facility] 2022-07-05 10:27:00 Outpatient TraoreSudha mancia STLMLC STLMLC [id number] [facility] 2022-06-27 09:27:01 Outpatient TraoreSudha mancia STLMLC STLMLC [id number] [facility] 2022-05-26 10:09:00 Outpatient TraoreuSdha mancia STLMLC STLMLC [id number] [facility] 2022-02-22 08:24:02 Outpatient TraoreSudha mancia STLMLC STLMLC [id number] [facility] 2022-01-16 10:10:00 Outpatient Sudha Traore STLMLC STLMLC [id number] [facility] 2021-11-16 14:32:02 Outpatient Sudha Traore STLMLC STLMLC [id number] [facility] 2021-11-16 14:31:06 Outpatient Sudha Traore STLMLC STLMLC [id number] [facility] 2021-11-16 13:09:20 Outpatient Sudha Traore STLMLC STLMLC [id number] [facility] 2021-11-16 12:39:12 Outpatient Sudha Traore STLMLC STLMLC [id number] [facility] 2021-11-16 12:34:08 Outpatient TraoreSudha mancia STLMLC STLMLC [id number] [facility] 2021-11-16 12:25:21 Outpatient Traore, Na STLMLC STLMLC [id number] [facility] 2021-11-16 12:25:09 Outpatient Traore, Na STLMLC STLMLC [id number] [facility] 2021-11-16 12:14:55 Outpatient Traore, Na STLMLC STLMLC [id number] [facility] 2021-11-16 12:14:45 Outpatient Azar Watson STLMLC STLMLC [id number] [facility] 2021-11-16 12:11:09 Outpatient Azar Watson STLMLC STLMLC [id number] [facility] 2021-11-16 12:08:17 Outpatient Azar Watson STLMLC STLMLC [id number] [facility] 2021-11-16 12:06:49 Outpatient Azar Watson STLMLC STLMLC [id number] [facility] 2021-11-16 12:01:10 Outpatient STLMLC STLMLC [id number] [facility] 2021-11-16 11:27:56 Outpatient Marissa Rodriguez STLMLC STLMLC [id number] [facility] 2021-11-16 11:13:44 Outpatient Marissa Rodriguez STLMLC STLMLC [id number] [facility] 2021-11-16 11:09:05 Outpatient Marissa Rodriguez STLMLC STLMLC [id number] [facility] 2021-11-16 11:06:45 Outpatient Marissa Rodriguez STLMLC STLMLC [id number] [facility] 2024-11-12 00:00:00 2024-11-12 00:00:00 (TEL) STLMLC STLMLC [id number] [facility] 2024-10-29 00:00:00 2024-10-29 00:00:00 (TEL) STLMLC STLMLC [id number] [facility] 2024-10-08 00:00:00 2024-10-08 00:00:00 (TEL) STLMLC STLMLC [id number] [facility] 2024-10-01 00:00:00 2024-10-01 00:00:00 (TEL) STLMLC STLMLC [id number] [facility] 2024-09-23 07:30:00 2024-09-23 07:50:00 ED Follow Up ([facility]) Shilpa Stanley ELBERT BOSWELL [id number] [facility] 2024-09-15 00:00:00 2024-09-15 00:00:00 (TEL) STLMLC STLMLC [id number] [facility] 2024-09-03 00:00:00 2024-09-03 00:00:00 OFFICE VISIT ESTAB PT LEVEL 4 STLMLC STLMLC [id number] [facility] 2024-08-13 00:00:00 2024-08-13 00:00:00 (HOSP F/U) Hospital Follow Up STLMLC STLMLC [id number] [facility] 2024-08-11 00:00:00 2024-08-11 00:00:00 (TEL) STLMLC STLMLC [id number] [facility] 2024-07-31 00:00:00 2024-07-31 00:00:00 (TEL) STLMLC STLMLC [id number] [facility] 2024-07-30 14:00:00 2024-07-30 15:00:00 Annual D2Me Salli Narda 2.16.840. [id number]. [id number] 3AY [facility] 2024-07-29 00:00:00 2024-07-29 00:00:00 OFFICE VISIT ESTAB PT LEVEL 4 STLMLC STLMLC [id number] [facility] 2024-07-28 00:00:00 2024-07-28 00:00:00 (TEL) STLMLC STLMLC [id number] [facility] 2024-07-22 00:00:00 2024-07-22 00:00:00 (TEL) STLMLC STLMLC [id number] [facility] 2024-06-02 00:00:00 2024-06-02 00:00:00 (TEL) STLMLC STLMLC [id number] [facility] 2024-05-14 00:00:00 2024-05-14 00:00:00 (TEL) STLMLC STLMLC [id number] [facility] 2024-05-13 00:00:00 2024-05-13 00:00:00 OFFICE VISIT ESTAB PT LEVEL 4 STLMLC STLMLC [id number] [facility] 2024-05-06 00:00:00 2024-05-06 00:00:00 (TEL) STLMLC STLMLC [id number] [facility] 2024-05-02 00:00:00 2024-05-02 00:00:00 (TEL) STLMLC STLMLC [id number] [facility] 2024-05-02 00:00:00 2024-05-02 00:00:00 (TEL) STLMLC STLMLC [id number] [facility] 2024-05-01 00:00:00 2024-05-01 00:00:00 (TEL) STLMLC STLMLC [id number] [facility] 2024-04-16 00:00:00 2024-04-16 00:00:00 (TEL) STLMLC STLMLC [id number] [facility] 2024-04-04 00:00:00 2024-04-04 00:00:00 (TEL) STLMLC STLMLC [id number] [facility] 2024-04-02 14:00:00 2024-04-02 14:30:00 [facility] [place] 2.16.840. [id number] 2.16.840.1. [id number] [address] [place] [address] 2024-04-01 00:00:00 2024-04-01 00:00:00 OFFICE VISIT ESTAB PT LEVEL 4 STLMLC STLMLC [id number] [facility] 2024-03-31 00:00:00 2024-03-31 00:00:00 (TEL) STLMLC STLMLC [id number] [facility] 2024-03-25 00:00:00 2024-03-25 00:00:00 (TEL) STLMLC STLMLC [id number] [facility] 2024-02-20 00:00:00 2024-02-20 00:00:00 (TEL) STLMLC STLMLC [id number] [facility] 2024-01-30 00:00:00 2024-01-30 00:00:00 OFFICE VISIT ESTAB PT LEVEL 4 STLMLC STLMLC [id number] [facility] 2023-12-26 00:00:00 2023-12-26 00:00:00 (TEL) STLMLC STLMLC [id number] [facility] 2023-12-18 00:00:00 2023-12-18 00:00:00 (TEL) STLMLC STLMLC [id number] [facility] 2023-11-20 00:00:00 2023-11-20 00:00:00 (TEL) STLMLC STLMLC [id number] [facility] 2023-10-16 00:00:00 2023-10-16 00:00:00 (TEL) STLMLC STLMLC [id number] [facility] 2023-10-12 00:00:00 2023-10-12 00:00:00 OFFICE VISIT ESTAB PT LEVEL 4 STLMLC STLMLC [id number] [facility] 2023-09-24 00:00:00 2023-09-24 00:00:00 (TEL) STLMLC STLMLC [id number] [facility] 2023-09-07 00:00:00 2023-09-07 00:00:00 (TEL) STLMLC STLMLC [id number] [facility] 2023-08-30 00:00:00 2023-08-30 00:00:00 (TEL) STLMLC STLMLC [id number] [facility] 2023-08-23 00:00:00 2023-08-23 00:00:00 (TEL) STLMLC STLMLC [id number] [facility] 2023-07-25 00:00:00 2023-07-25 00:00:00 (TEL) STLMLC STLMLC [id number] [facility] 2023-07-11 00:00:00 2023-07-11 00:00:00 (TEL) STLMLC STLMLC [id number] [facility] 2023-07-11 00:00:00 2023-07-11 00:00:00 OFFICE VISIT ESTAB PT LEVEL 4 STLMLC STLMLC [id number] [facility] 2023-07-02 00:00:00 2023-07-02 00:00:00 (TEL) STLMLC STLMLC [id number] [facility] 2023-06-11 18:00:00 2023-06-11 19:00:00 Joshua Talavera 2.16.840. [id number] 2.16.840.1. [id number] 2023-06-11 00:00:00 2023-06-11 00:00:00 (TEL) STLMLC STLMLC [id number] [facility] 2023-06-04 00:00:00 2023-06-04 00:00:00 (TEL) STLMLC STLMLC [id number] [facility] 2023-05-31 00:00:00 2023-05-31 00:00:00 (TEL) STLMLC STLMLC [id number] [facility] 2023-05-30 00:00:00 2023-05-30 00:00:00 Outpatient GC_GCBZW_Ka diyala_S PRIV PRIV [id number] [facility] 2023-05-30 00:00:00 2023-05-30 00:00:00 Outpatient GC_GCBZW_Ka diyala_S PRIV PRIV [id number] [facility] 2023-05-28 00:00:00 2023-05-28 00:00:00 Outpatient GC_GCBZW_Ka diyala_S PRIV PRIV [id number] [facility] 2023-05-28 00:00:00 2023-05-28 00:00:00 OFFICE VISIT ESTAB PT LEVEL 4 STLMLC STLMLC [id number] [facility] 2023-05-22 00:00:00 2023-05-22 00:00:00 (TEL) STLMLC STLMLC [id number] [facility] 2023-05-15 00:00:00 2023-05-15 00:00:00 (TEL) STLMLC STLMLC [id number] [facility] 2023-05-01 00:00:00 2023-05-01 00:00:00 (TEL) STLMLC STLMLC [id number] [facility] 2023-04-06 00:00:00 2023-04-06 00:00:00 OFFICE VISIT ESTAB PT LEVEL 4 STLMLC STLMLC [id number] [facility] 2023-04-06 00:00:00 2023-04-06 00:00:00 (TEL) STLMLC STLMLC [id number] [facility] 2023-03-27 00:00:00 2023-03-27 00:00:00 Orders Only Doctor Unassigned, Dilkon [facility] [id number] [id number] [id number] [id number] [facility] 2023-02-21 00:00:00 2023-02-21 00:00:00 (TEL) STLMLC STLMLC [id number] [facility] 2023-02-07 00:00:00 2023-02-07 00:00:00 OFFICE VISIT ESTAB PT LEVEL 4 STLMLC STLMLC [id number] [facility] 2023-01-30 00:00:00 2023-01-30 00:00:00 (TEL) STLMLC STLMLC [id number] [facility] 2023-01-29 00:00:00 2023-01-29 00:00:00 OFFICE VISIT ESTAB PT LEVEL 3 STLMLC STLMLC [id number] [facility] 2023-01-23 00:00:00 2023-01-23 00:00:00 (TEL) STLMLC STLMLC [id number] [facility] 2023-01-19 00:00:00 2023-01-19 00:00:00 (TEL) STLMLC STLMLC [id number] [facility] 2022-12-08 00:00:00 2022-12-08 00:00:00 (TEL) STLMLC STLMLC [id number] [facility] 2022-12-06 00:00:00 2022-12-06 00:00:00 (TEL) STLMLC STLMLC [id number] [facility] 2022-11-28 00:00:00 2022-11-28 00:00:00 (TEL) STLMLC STLMLC [id number] [facility] 2022-11-24 00:00:00 2022-11-24 00:00:00 OFFICE VISIT ESTAB PT LEVEL 4 STLMLC STLMLC [id number] [facility] 2022-11-13 00:00:00 2022-11-13 00:00:00 (TEL) STLMLC STLMLC [id number] [facility] 2022-11-08 00:00:00 2022-11-08 00:00:00 OFFICE VISIT EST PT LEVEL 3 STLMLC STLMLC [id number] [facility] 2022-11-06 00:00:00 2022-11-06 00:00:00 (TEL) STLMLC STLMLC [id number] [facility] 2022-09-04 00:00:00 2022-09-04 00:00:00 OFFICE VISIT ESTAB PT LEVEL 4 STLMLC STLMLC [id number] [facility] 2022-08-23 00:00:00 2022-08-23 00:00:00 OFFICE VISIT EST PT LEVEL 3 STLMLC STLMLC [id number] [facility] 2022-08-02 00:00:00 2022-08-02 00:00:00 OFFICE VISIT EST PT LEVEL 3 STLMLC STLMLC [id number] [facility] 2022-07-05 00:00:00 2022-07-05 00:00:00 OFFICE VISIT NEW PT LEVEL 3 STLMLC STLMLC [id number] [facility] 2022-06-22 00:00:00 2022-06-22 00:00:00 (TEL) STLMLC STLMLC [id number] [facility] 2022-06-20 00:00:00 2022-06-20 00:00:00 (TEL) STLMLC STLMLC [id number] [facility] 2022-06-15 09:30:00 2022-06-15 09:30:00 Outpatient SHILPA CARLSON [facility] [id number] [facility] 2022-05-31 00:00:00 2022-05-31 00:00:00 (TEL) STLMLC STLMLC [id number] [facility] 2022-05-30 00:00:00 2022-05-30 00:00:00 OFFICE VISIT ESTAB PT LEVEL 4 STLMLC STLMLC [id number] [facility] 2022-05-22 00:00:00 2022-05-22 00:00:00 (TEL) STLMLC STLMLC [id number] [facility] 2022-05-06 10:01:00 2022-05-06 10:01:00 Outpatient Adams_R DMG DMG [id number] [facility] 2022-05-06 00:00:00 2022-05-06 00:00:00 Outpatient Adams_R DMG DMG [id number] [facility] 2022-03-29 00:00:00 2022-03-29 00:00:00 (TEL) STLMLC STLMLC [id number] [facility] 2022-03-21 00:00:00 2022-03-21 00:00:00 (TEL) STLMLC STLMLC [id number] [facility] 2022-03-16 00:00:00 2022-03-16 00:00:00 (TEL) STLMLC STLMLC [id number] [facility] 2022-03-09 00:00:00 2022-03-09 00:00:00 (TEL) STLMLC STLMLC [id number] [facility] 2022-03-02 00:00:00 2022-03-02 00:00:00 (TEL) STLMLC STLMLC [id number] [facility] 2022-02-24 00:00:00 2022-02-24 00:00:00 OFFICE VISIT ESTAB PT LEVEL 4 STLMLC STLMLC [id number] [facility] 2022-02-13 00:00:00 2022-02-13 00:00:00 (TEL) STLMLC STLMLC [id number] [facility] 2022-01-18 00:00:00 2022-01-18 00:00:00 (TEL) STLMLC STLMLC [id number] [facility] 2022-01-16 00:00:00 2022-01-16 00:00:00 OFFICE VISIT EST PT LEVEL 3 STLMLC STLMLC [id number] [facility] 2021-12-16 00:00:00 2021-12-16 00:00:00 (TEL) STLMLC STLMLC [id number] [facility] 2021-12-13 00:00:00 2021-12-13 00:00:00 OL DIG E/M SVC 11-20 MIN STLMLC STLMLC [id number] [facility] 2021-12-12 00:00:00 2021-12-12 00:00:00 (TEL) STLMLC STLMLC [id number] [facility] 2021-11-23 00:00:00 2021-11-23 00:00:00 (TEL) STLMLC STLMLC [id number] [facility] 2021-11-16 00:00:00 2021-11-16 00:00:00 OL DIG E/M SVC 11-20 MIN STLMLC STLMLC [id number] [facility] 2021-10-31 09:57:00 2021-10-31 09:57:00 Outpatient Adams_[place] [id number] [facility] 2021-10-18 12:00:00 2021-10-18 12:00:00 Outpatient DMG DMG [id number] [facility] 2021-09-09 00:00:00 2021-09-09 00:00:00 OL DIG E/M SVC 21+ MIN STLMLC STLMLC [id number] [facility] 2021-08-29 11:02:00 2021-08-29 11:02:00 Outpatient DMG DMG [id number] [facility] 2021-08-18 00:00:00 2021-08-18 00:00:00 OFFICE VISIT EST PT LEVEL 3 STLMLC STLMLC [id number] [facility] 2021-08-18 00:00:00 2021-08-18 00:00:00 (TEL) STLMLC STLMLC [id number] [facility] 2021-08-18 00:00:00 2021-08-18 00:00:00 (TEL) STLMLC STLMLC [id number] [facility] 2021-08-15 00:00:00 2021-08-15 00:00:00 (TEL) STLMLC STLMLC [id number] [facility] 2021-07-08 00:00:00 2021-07-08 00:00:00 (TEL) STLMLC STLMLC [id number] [facility] 2021-06-21 00:00:00 2021-06-21 00:00:00 Outpatient STLMLC STLMLC [id number] [facility] 2021-06-15 09:22:29 2021-06-15 09:49:00 Office Visit Shilpa Bourgeois [facility] 1.2.840.114 350.1.13.10 [id number] [id number] [facility] 2021-06-15 09:00:00 2021-06-15 09:00:00 Outpatient SHILPA CARLSON [facility] [id number] [facility] 2021-06-10 00:00:00 2021-06-10 00:00:00 Outpatient STLMLC STLMLC [id number] [facility] 2021-06-10 00:00:00 2021-06-10 00:00:00 Outpatient STLMLC STLMLC [id number] [facility] 2021-05-11 08:42:39 2021-05-11 23:59:00 Hospital Encounter Shilpa Bourgeois [facility] 1.2.840.114 350.1.13.10 4.2.7.2.686 [id number] [facility] 2021-05-11 00:00:00 2021-05-11 00:00:00 Outpatient SHILPA CARLSON [facility] [id number] [facility] 2021-05-11 00:00:00 2021-05-11 00:00:00 Orders Only Doctor Unassigned, [place] [facility] 1.2.840.114 350.1.13.10 4.2.7.2.686 [id number] [facility] 2021-03-23 00:00:00 2021-03-23 00:00:00 Outpatient STLMLC STLMLC [id number] [facility] 2021-01-26 00:00:00 2021-01-26 00:00:00 Outpatient STLMLC STLC [id number] [facility] 2021-01-24 00:00:00 2021-01-24 00:00:00 Orders Only Doctor Unassigned, [place] [facility] 1.2840.114 350.1.13.10 4.2.7.2.686 [id number] [facility] 2021-01-19 00:00:00 2021-01-19 00:00:00 Orders Only Doctor Unassigned, [place] [facility] 1.2840.114 350.1.13.10 4.2.7.2.686 [id number] [facility] 2021-01-13 08:35:32 2021-01-13 09:20:50 Office Visit Shilpa Bourgeois [facility] 1.2.840.114 350.1.13.10 4.2.7.2.686 [id number] [facility] 2021-01-13 09:00:00 2021-01-13 09:00:00 Outpatient R SHILPA BOURGEOIS [facility] [id number] [facility] 2021-01-13 00:00:00 2021-01-13 00:00:00 Orders Only Doctor Unassigned, [place] [facility] 1.2.840.114 350.1.13.10 4.2.7.2.686 [id number] [facility] 2021-01-13 00:00:00 2021-01-13 00:00:00 Letter (Out) Doctor Unassigned, [place] [facility] 1.2.840.114 350.1.13.10 4.2.7.2.686 [id number] [facility] 2021-01-13 00:00:00 2021-01-13 00:00:00 Letter (Out) Doctor Unassigned, [place] [facility] [id number] [facility] 2021-01-04 00:00:00 2021-01-04 00:00:00 Case Management Shilpa Bourgeois [facility] [id number] [facility] 2021-01-03 00:00:00 2021-01-03 00:00:00 Outpatient STLMLC STLMLC [id number] [facility] 2020-12-21 00:00:00 2020-12-21 00:00:00 Outpatient STLMLC STLMLC [id number] [facility] 2020-11-16 00:00:00 2020-11-16 00:00:00 Outpatient STLMLC STLMLC [id number] [facility] 2020-11-10 00:00:00 2020-11-10 00:00:00 Outpatient STLMLC STLMLC [id number] [facility] 2020-10-12 00:00:00 2020-10-12 00:00:00 Outpatient STLMLC STLMLC [id number] [facility] 2020-10-11 00:00:00 2020-10-11 00:00:00 Outpatient STLMLC STLMLC [id number] [facility] 2020-09-30 00:00:00 2020-09-30 00:00:00 Outpatient STLMLC STLMLC [id number] [facility] 2020-09-29 00:00:00 2020-09-29 00:00:00 Outpatient STLMLC STLMLC [id number] [facility] 2020-09-14 00:00:00 2020-09-14 00:00:00 Outpatient STLMLC STLMLC [id number] [facility] 2020-09-14 00:00:00 2020-09-14 00:00:00 Outpatient STLMLC STLMLC [id number] [facility] 2020-09-14 00:00:00 2020-09-14 00:00:00 Outpatient STLMLC STLMLC [id number] [facility] 2020-09-13 00:00:00 2020-09-13 00:00:00 Outpatient STLMLC STLMLC [id number] [facility] 2020-06-24 09:50:00 2020-06-24 09:50:00 Outpatient [facility] [id number] [facility] 2020-06-09 16:32:00 2020-06-09 16:32:00 [place] [facility] [id number] [facility] 2020-05-28 11:43:00 2020-05-28 11:43:[address] [facility] [address] [facility] [id number] [facility] 2020-04-13 09:20:00 2020-04-13 09:20:[address] [facility] [address] [facility] [place] [facility] [id number] [facility] 2020-03-10 16:01:00 2020-03-10 16:01:[address] [facility] [address] [facility] [id number] [facility] [place] [facility] 2020-01-25 13:49:00 2020-01-25 13:49:[address] [facility] [address] [facility] [id number] [facility] 2020-01-02 09:45:00 2020-01-02 09:45:[address] [facility] [address] [facility] [place] [id number] [facility] 2019-12-02 09:15:00 2019-12-02 09:15:[address] [facility] [address] [facility] [id number] [facility] [place] [facility] 2019-11-17 14:50:00 2019-11-17 14:50:[address] [facility] [address] [facility] [place] [facility] [id number] [facility] 2019-09-26 10:00:00 2019-09-26 10:00:[address] [facility] [address] [facility] [place] [facility] [id number] [facility] [place] [facility] 2019-07-22 11:05:00 2019-07-22 11:05:[address] [facility] [address] [facility] [place] [address] [facility] [id number] [facility] [place] [facility] 2019-06-30 10:20:00 2019-06-30 10:20:[address] [facility] [address] [facility] [place] [facility] [id number] [facility] 2019-04-17 20:26:00 2019-04-17 20:26:[address] [facility] [address] [facility] [place] [facility] [id number] [facility] 2019-04-16 15:58:00 2019-04-16 15:58:[address] [facility] [address] [facility] [place] [facility] [id number] [facility] 2019-03-03 13:58:00 2019-03-03 13:58:[address] [facility] [address] [facility] [place] [facility] [id number] [facility] 2019-01-17 15:47:00 2019-01-17 15:47:[address] [facility] [address] [facility] [place] [facility] [id number] [facility] [place] [facility] 2019-01-17 11:15:00 2019-01-17 11:15:[address] [facility] [address] [facility] [place] [facility] [id number] [facility] 2019-01-10 01:41:00 2019-01-10 01:41:[address] [facility] [address] [facility] [place] [address] [facility] [id number] [facility] 2019-01-08 10:30:00 2019-01-08 10:30:[address] [facility] [address] [facility] [place] [facility] [facility] [id number] [facility] 2018-12-26 14:36:00 2018-12-26 14:36:[address] [facility] [address] [facility] [place] [facility] [facility] [id number] [facility] 2018-12-25 11:15:00 2018-12-25 11:15:[address] [facility] [address] [facility] [place] [facility] [id number] [facility] 2018-11-12 09:15:00 2018-11-12 09:15:00 [facility] [address] [facility] [place] [address] [facility] [id number] [facility] 2018-10-09 08:00:00 2018-10-09 08:00:00 [facility] [address] [facility] [place] [address] [facility] [id number] [facility] 2018-07-30 15:53:00 2018-07-30 15:53:00 [facility] [address] [facility] [place] [address] [facility] [id number] [facility] 2018-07-29 09:10:00 2018-07-29 09:10:00 [facility] [address] [facility] [place] [address] [facility] [id number] [facility] 2018-05-28 11:00:00 2018-05-28 11:00:00 [facility] [address] [facility] [place] [address] [facility] [id number] [facility] 2018-04-10 08:24:00 2018-04-10 08:24:00 [facility] [address] [facility] [place] [address] [facility] [id number] [facility] 2018-04-02 09:00:00 2018-04-02 09:00:00 Outpatient [facility] [id number] [facility] 2018-04-01 14:33:00 2018-04-01 14:33:00 Outpatient [facility] [id number] [facility] 2018-03-21 08:55:00 2018-03-21 08:55:00 Outpatient [facility] [id number] [facility] 2018-03-19 09:30:00 2018-03-19 09:30:00 Outpatient [facility] [id number] [facility] Results Test Description Test Time Test Comments Results Result Co mments Source CBC W/AUTO [id number] 00:00:00* Test Item Value Reference Range Interpretation Comme nts NUCLEATED RBCS (test code = 33317-8) 0.0 /100 WBC'S See_Comment [Automated messa ge] The system which generated this result transmitted reference range: 0.0 /100 WBC'S. The reference range was not used to interpret this result as normal/abnormal. ABSOLUTE EOSINOPHILS (test code = 41159-8) 0.25 K/UL See_Comment [Automated messa ge] The system which generated this result transmitted reference range: 0.00-0.50 K/UL. The reference range was not used to interpret this result as normal/abnormal. ABSOLUTE LYMPHOCYTES (test code = 77945-0) 2.14 K/UL See_Comment [Automated messa ge] The system which generated this result transmitted reference range: 1.00-4.00 K/UL. The reference range was not used to interpret this result as normal/abnormal. ABSOLUTE MONOCYTES (test code = 79878-7) 0.61 K/UL See_Comment [Automated messa ge] The system which generated this result transmitted reference range: 0.20-1.00 K/UL. The reference range was not used to interpret this result as normal/abnormal. ABSOLUTE NEUTROPHILS (test code = 29459-7) 5.26 K/UL See_Comment [Automated messa ge] The system which generated this result transmitted reference range: 1.50-7.50 K/UL. The reference range was not used to interpret this result as normal/abnormal. BASOPHILS (test code = 12255-1) 0.6 % EOSINOPHILS (test code = 87285-6) 3.0 % HEMATOCRIT (test code = 29892-1) 30.4 % See_Comment L [Automated messa ge] [...] result as normal/abnormal. LYMPHOCYTES (test code = 43235-9) 25.7 % MCH (test code = 73675-5) 30.6 PG See_Comment [Automated messa ge] The system which generated this result transmitted reference range: 25.0-33.0 PG. The reference range was not used to interpret this result as normal/abnormal. MCHC (test code = 12098-6) 33.2 G/DL See_Comment [Automated messa ge] The system which generated this result transmitted reference range: 31.0-36.0 G/DL. The reference range was not used to interpret this result as normal/abnormal. MCV (test code = 15932-7) 92.1 fL See_Comment [Automated messa ge] The system which generated this result transmitted reference range: 80.0-99.0 fL. The reference range was not used to interpret this result as normal/abnormal. MONOCYTES (test code = 88963-4) 7.3 % NEUTROPHILS (test code = 31306-6) 63.0 % PLATELET COUNT (test code = 37433-3) 221 K/UL See_Comment [Automated messa ge] The system which generated this result transmitted reference range: 130-400 K/UL. The reference range was not used to interpret this result as normal/abnormal. RBC (test code = 23301-5) 3.30 M/UL See_Comment L [Automated messa ge] The system which generated this result transmitted reference range: 3.80-5.40 M/UL. The reference range was not used to interpret this result as normal/abnormal. RDW (test code = 92017-9) 14.1 % See_Comment [Automated messa ge] The system which generated this result transmitted reference range: 11.5-15.0 %. The reference range was not used to interpret this result as normal/abnormal. WBC (test code = 02766-3) 8.3 K/UL See_Comment [Automated messa ge] The system which generated this result transmitted reference range: 3.5-11.0 K/UL. The reference range was not used to interpret this result as normal/abnormal. CULTURE, [id number] 00:00:00* Test Item Value Reference Range Interpretation Comme nts CULTURE, URINE (test code = 630-4) SPECIMEN NUMBER: [id number] CBC W/AUTO [id number] 00:00:00* Test Item Value Reference Range Interpretation Comme nts NUCLEATED RBCS (test code = 51890-1) 0.0 /100 WBC'S See_Comment [Automated messa ge] The system which generated this result transmitted reference range: 0.0 /100 WBC'S. The reference range was not used to interpret this result as normal/abnormal. ABSOLUTE EOSINOPHILS (test code = 03415-1) 0.27 K/UL See_Comment [Automated messa ge] The system which generated this result transmitted reference range: 0.00-0.50 K/UL. The reference range was not used to interpret this result as normal/abnormal. ABSOLUTE LYMPHOCYTES (test code = 13743-2) 1.99 K/UL See_Comment [Automated messa ge] The system which generated this result transmitted reference range: 1.00-4.00 K/UL. The reference range was not used to interpret this result as normal/abnormal. ABSOLUTE MONOCYTES (test code = 74123-2) 0.75 K/UL See_Comment [Automated messa ge] The system which generated this result transmitted reference range: 0.20-1.00 K/UL. The reference range was not used to interpret this result as normal/abnormal. ABSOLUTE NEUTROPHILS (test code = 46810-8) 6.41 K/UL See_Comment [Automated messa ge] The system which generated this result transmitted reference range: 1.50-7.50 K/UL. The reference range was not used to interpret this result as normal/abnormal. BASOPHILS (test code = 21801-9) 0.5 % EOSINOPHILS (test code = 75695-3) 2.8 % HEMATOCRIT (test code = 06808-7) 33.8 % See_Comment L [Automated messa ge] [...] result as normal/abnormal. LYMPHOCYTES (test code = 67706-3) 21.0 % MCH (test code = 35162-7) 29.7 PG See_Comment [Automated messa ge] The system which generated this result transmitted reference range: 25.0-33.0 PG. The reference range was not used to interpret this result as normal/abnormal. MCHC (test code = 81266-2) 32.0 G/DL See_Comment [Automated messa ge] The system which generated this result transmitted reference range: 31.0-36.0 G/DL. The reference range was not used to interpret this result as normal/abnormal. MCV (test code = 48589-4) 92.9 fL See_Comment [Automated messa ge] The system which generated this result transmitted reference range: 80.0-99.0 fL. The reference range was not used to interpret this result as normal/abnormal. MONOCYTES (test code = 70211-1) 7.9 % NEUTROPHILS (test code = 35587-7) 67.6 % PLATELET COUNT (test code = 77814-3) 231 K/UL See_Comment [Automated messa ge] The system which generated this result transmitted reference range: 130-400 K/UL. The reference range was not used to interpret this result as normal/abnormal. RBC (test code = 21322-1) 3.64 M/UL See_Comment L [Automated messa ge] The system which generated this result transmitted reference range: 3.80-5.40 M/UL. The reference range was not used to interpret this result as normal/abnormal. RDW (test code = 29829-9) 13.7 % See_Comment [Automated messa ge] The system which generated this result transmitted reference range: 11.5-15.0 %. The reference range was not used to interpret this result as normal/abnormal. WBC (test code = 64904-1) 9.5 K/UL See_Comment [Automated messa ge] The system which generated this result transmitted reference range: 3.5-11.0 K/UL. The reference range was not used to interpret this result as normal/abnormal. CBC W/AUTO [id number] 00:00:00* Test Item Value Reference Range Interpretation Comme nts NUCLEATED RBCS (test code = 14203-8) 0.0 /100 WBC'S See_Comment [Automated messa ge] The system which generated this result transmitted reference range: 0.0 /100 WBC'S. The reference range was not used to interpret this result as normal/abnormal. ABSOLUTE EOSINOPHILS (test code = 36299-0) 0.32 K/UL See_Comment [Automated messa ge] The system which generated this result transmitted reference range: 0.00-0.50 K/UL. The reference range was not used to interpret this result as normal/abnormal. ABSOLUTE LYMPHOCYTES (test code = 45169-4) 2.60 K/UL See_Comment [Automated messa ge] The system which generated this result transmitted reference range: 1.00-4.00 K/UL. The reference range was not used to interpret this result as normal/abnormal. ABSOLUTE MONOCYTES (test code = 90041-7) 0.60 K/UL See_Comment [Automated messa ge] The system which generated this result transmitted reference range: 0.20-1.00 K/UL. The reference range was not used to interpret this result as normal/abnormal. ABSOLUTE NEUTROPHILS (test code = 46091-7) 6.76 K/UL See_Comment [Automated messa ge] The system which generated this result transmitted reference range: 1.50-7.50 K/UL. The reference range was not used to interpret this result as normal/abnormal. BASOPHILS (test code = 13533-8) 0.9 % EOSINOPHILS (test code = 00541-5) 3.1 % HEMATOCRIT (test code = 59581-2) 32.8 % See_Comment L [Automated messa ge] [...] result as normal/abnormal. LYMPHOCYTES (test code = 34912-6) 25.0 % MCH (test code = 48520-8) 29.6 PG See_Comment [Automated messa ge] The system which generated this result transmitted reference range: 25.0-33.0 PG. The reference range was not used to interpret this result as normal/abnormal. MCHC (test code = 85805-3) 32.6 G/DL See_Comment [Automated messa ge] The system which generated this result transmitted reference range: 31.0-36.0 G/DL. The reference range was not used to interpret this result as normal/abnormal. MCV (test code = 17543-9) 90.9 fL See_Comment [Automated messa ge] The system which generated this result transmitted reference range: 80.0-99.0 fL. The reference range was not used to interpret this result as normal/abnormal. MONOCYTES (test code = 73886-8) 5.8 % NEUTROPHILS (test code = 17696-5) 64.9 % PLATELET COUNT (test code = 21363-5) 208 K/UL See_Comment [Automated messa ge] The system which generated this result transmitted reference range: 130-400 K/UL. The reference range was not used to interpret this result as normal/abnormal. RBC (test code = 75742-2) 3.61 M/UL See_Comment L [Automated messa ge] The system which generated this result transmitted reference range: 3.80-5.40 M/UL. The reference range was not used to interpret this result as normal/abnormal. RDW (test code = 32240-0) 13.0 % See_Comment [Automated messa ge] The system which generated this result transmitted reference range: 11.5-15.0 %. The reference range was not used to interpret this result as normal/abnormal. WBC (test code = 73437-4) 10.4 K/UL See_Comment [Automated messa ge] The system which generated this result transmitted reference range: 3.5-11.0 K/UL. The reference range was not used to interpret this result as normal/abnormal. US PELVIS COMPLETE WITH [id number] 23:04:561. ?Simple cyst in the left ovary [...] colorDoppler evaluation of the pelvis was performed. [employer] images wereobtained for the record. COMPARISON: None [...] colorDoppler evaluation of the pelvis was performed. [employer] images wereobtained for the record. COMPARISON: NoneFINDINGS:STATEMENT: [...] reviewed this study and agree with theabove report.[facility] S[facility] KAILASH BILAT W/CAD3D SCR KAILASH BILAT W/CADSARS-COV 2 AntigenSARS-COV 2 Antigen
[2024-11-14] MEDS ORDERED: TRAMADOL HCL 50 MG TAB ONE (11:32)
--- NOTE | 2024-11-14 11:56 | RAD REPORT ---
Extremity Venous Uni Ltd CLINICAL INDICATION: Female, 64 years old.PAIN TECHNIQUE: Complete duplex sonography of the lower extremity veins was performed of the affected limb . The examination included compression for vein patency, color Doppler imaging and flow augmentation in response to distal compression of the distal external iliac, common femoral, femoral, popliteal, peroneal, tibial and great saphenous veins. [id number]. COMPARISON: No prior exams FINDINGS: Duplex sonography imaging demonstrates all deep veins examined to be fully compressible with spontane ous, phasic and augmented flow in the affected limb. IMPRESSION: No evidence of deep venous thrombosis in the left lower extremity.
--- NOTE | 2024-11-14 12:42 | ER ---
Nurse's Notes [facility] Name: Sergio Otero Age: 64 yrs Sex: Female : 1960 Arrival Date: 11/14/2024 Time: 10:42 Bed 13 Private MD: Diagnosis: Radiculopathy, lumbar region Presentation: 11/14 10:53 Chief complaint: Shooting pain down left leg x 3 months, became worse last week, last hb few days her knee has been giving out. Coronavirus screen: At this time, the client does not indicate any symptoms associated with coronavirus-19. Ebola Screen: No symptoms or risks identified at this time. Initial Sepsis Screen: Does the patient meet any 2 criteria? No. Patient's initial sepsis screen is negative. Does the patient have a suspected source of infection? No. Patient's initial sepsis screen is negative. Risk Assessment: Do you want to hurt yourself or someone else? Patient reports no desire to harm self or others. Onset of symptoms was July 2024. 10:53 Method Of Arrival: Wheelchair hb 10:53 Acuity: SIMONE 3 hb Historical: - Allergies: 10:54 Adhesives; hb - PMHx: 10:54 Gout; Hyperlipidemia; Hypertension; kidney function is low; Sickle Cell Trait; hb - PSHx: 10:54 adrenal gland removed; section; foot; Shoulder (Gout); hb - Immunization history:: Adult Immunizations up to date. - Infectious Disease History:: Denies. - Social history:: Smoking status: Patient denies any tobacco usage or history of. - Family history:: not pertinent. Screenin:20 [facility] ED Fall Risk Assessment (Adult) History of falling in the last 3 months, kj2 including since admission No falls in past 3 months (0 pts) Confusion or Disorientation No (0 pts) Intoxicated or Sedated No (0 pts) Impaired Gait No (0 pts) Mobility Assist Device Used No (0 pt) Altered Elimination No (0 pt) Score/Fall Risk Level 0 - 2 = Low Risk Maintained a safe environment, Hourly rounding (assess needs \T\ fall precautionary measures) done. Abuse screen: Denies threats or abuse. Denies injuries from another. Nutritional screening: No deficits noted. Tuberculosis screening: No symptoms or risk factors identified. Assessment: 11:20 General: Appears in no apparent distress. uncomfortable, Behavior is calm, cooperative. kj2 Pain: Complains of pain in left leg Pain currently is 6 out of 10 on a pain scale. Neuro: Level of Consciousness is awake, alert, obeys commands, Oriented to person, place, time, situation. Cardiovascular: Patient's skin is warm and dry. Respiratory: Airway Respiratory effort is even, unlabored. GI: No signs and/or symptoms were reported involving the gastrointestinal system. : No signs and/or symptoms were reported regarding the genitourinary system. 12:06 Reassessment: Patient appears in no apparent distress at this time. Patient and/or kj2 family updated on plan of care and expected duration. Pain level reassessed. Patient is alert, oriented x 3, equal unlabored respirations, skin warm/dry/pink. 12:48 Reassessment: Patient appears in no apparent distress at this time. Patient and/or kj2 family updated on plan of care and expected duration. Pain level reassessed. Patient is alert, oriented x 3, equal unlabored respirations, skin warm/dry/pink. General: Appears. Vital Signs: 10:53 BP 143 / 85; Pulse 72; Resp 16; Temp 97.8; Pulse Ox 100% on R/A; Weight 107.95 kg; hb Height 5 ft. 6 in. ; Pain 8/10; 12:09 BP 149 / 77; Pulse 69; Resp 20; Temp 98; Pulse Ox 97% ; kj2 12:48 BP 147 / 69; Pulse 68; Resp 20; Temp 98; Pulse Ox 100% on R/A; kj2 10:53 Body Mass Index 38.41 (107.95 kg, 167.64 cm) hb 10:53 Pain Scale: Adult hb ED Course: 10:47 Patient arrived in ED. mr 10:54 Triage completed. hb 10:55 Arm band placed on. hb 11:04 Ervin Blake MD is Attending Physician. rt 11:20 Patient has correct armband on for positive identification. Bed in low position. Call kj2 light in reach. Provided Education on: call light. 11:27 Marissa Hicks, RN is Primary Nurse. kj2 11:30 No provider procedures requiring assistance completed. kj2 11:50 Extremity Venous Uni Ltd US In Process Unspecified. EDMS 12:49 Patient did not have IV access during this emergency room visit. kj2 Administered Medications: 11:56 Drug: traMADol PO 50 mg PO once Route: PO; kj2 12:50 Follow up: Response: No adverse reaction; Blood sugar is lowered kj2 Medication: 11:30 VIS not applicable for this client. kj2 Outcome: 12:41 Discharge ordered by . rt 12:49 Discharged to home ambulatory, kj2 12:49 Condition: stable 12:49 Discharge instructions given to patient, Instructed on discharge instructions, follow up and referral plans. Demonstrated understanding of instructions, follow-up care, 12:57 Patient left the ED. kj2 Signatures: Dispatcher [employer] EDMS DontrellMonse, Reg Reg mr Idania Weber RN RN hb Ervin Blake MD MD rt Marissa Hicks RN RN kj2 Corrections: (The following items were deleted from the chart) 10:55 10:53 Pulse 72bpm; Resp 16bpm; Pulse Ox 100% RA; Temp 97.8F; 107.95 kg; Height 5 ft. 6 hb in.; BMI: 38.4; Pain 8/10, Adult; hb
--- NOTE | 2024-11-14 12:42 | EDPHYS ---
Physician Documentation [facility] Name: Sergio Otero Age: 64 yrs Sex: Female : 1960 Arrival Date: 11/14/2024 Time: 10:42 Bed 13 Private MD: ED Physician Ervin Blake HPI: 11/14 15:07 This 64 yrs old Black Female presents to ER via Wheelchair with complaints of Leg Pain. rt 15:07 Patient presents to the ED with 3 months of pain radiating laterally and posteriorly rt down the back of the leg on the left. Denies discrete injury. Denies appreciable swelling. Denies other acute complaints at this time, symptoms are moderate in severity, no other aggravating alleviating factors.. Historical: - Allergies: 10:54 Adhesives; hb - PMHx: 10:54 Gout; Hyperlipidemia; Hypertension; kidney function is low; Sickle Cell Trait; hb - PSHx: 10:54 adrenal gland removed; section; foot; Shoulder (Gout); hb - Immunization history:: Adult Immunizations up to date. - Infectious Disease History:: Denies. - Social history:: Smoking status: Patient denies any tobacco usage or history of. - Family history:: not pertinent. ROS: 15:07 Constitutional: Negative for fever, chills, and weight loss, Cardiovascular: Negative rt for chest pain, palpitations, and edema, Respiratory: Negative for shortness of breath, cough, wheezing, and pleuritic chest pain, Abdomen/GI: Negative for abdominal pain, nausea, vomiting, diarrhea, and constipation, Skin: Negative for injury, rash, and discoloration, Neuro: Negative for headache, weakness, numbness, tingling, and seizure, 15:07 MS/extremity: Positive for pain, Negative for injury or acute deformity, Exam: 15:07 Constitutional: This is a well developed, well nourished patient who is awake, alert, rt and in no acute distress. Head/Face: Normocephalic, atraumatic. Chest/axilla: Normal chest wall appearance and motion. Nontender with no deformity. No lesions are appreciated. Cardiovascular: Regular rate and rhythm with a normal S1 and S2. No gallops, murmurs, or rubs. Normal PMI, no JVD. No pulse deficits. Respiratory: Lungs have equal breath sounds bilaterally, clear to auscultation and percussion. No rales, rhonchi or wheezes noted. No increased work of breathing, no retractions or nasal flaring. Abdomen/GI: Soft, non-tender, with normal bowel sounds. No distension or tympany. No guarding or rebound. No evidence of tenderness throughout. Skin: Warm, dry with normal turgor. Normal color with no rashes, no lesions, and no evidence of cellulitis. MS/ Extremity: Pulses equal, no cyanosis. Neurovascular intact. Full, normal range of motion. 15:07 Musculoskeletal/extremity: Mild tenderness diffusely on the left leg, no appreciable swelling, pulses, motor, sensation intact. Vital Signs: 10:53 BP 143 / 85; Pulse 72; Resp 16; Temp 97.8; Pulse Ox 100% on R/A; Weight 107.95 kg; hb Height 5 ft. 6 in. ; Pain 8/10; 12:09 BP 149 / 77; Pulse 69; Resp 20; Temp 98; Pulse Ox 97% ; kj2 12:48 BP 147 / 69; Pulse 68; Resp 20; Temp 98; Pulse Ox 100% on R/A; kj2 10:53 Body Mass Index 38.41 (107.95 kg, 167.64 cm) hb 10:53 Pain Scale: Adult hb MDM: 11:05 Medical Screening Exam initiated rt 15:07 Differential diagnosis: DVT, lumbosacral radiculopathy. Data reviewed: vital signs, rt nurses notes. I considered the following discharge prescriptions or medication management in the emergency department Medications were administered in the Emergency Department. See MAR. Test considered but Not performed: X-ray: No discrete trauma, low suspicion for fracture, x-rays are not indicated. Care significantly affected by the following chronic conditions: Hypertension. Counseling: I had a detailed discussion with the patient and/or guardian regarding the historical points, exam findings, and any diagnostic results supporting the discharge/admit diagnosis, radiology results, the need for outpatient follow up. 11/14 11:21 Order name: Extremity Venous [employer] ; Complete Time: 11:58 rt Administered Medications: 11:56 Drug: traMADol PO 50 mg PO once Route: PO; kj2 12:50 Follow up: Response: No adverse reaction; Blood sugar is lowered kj2 Disposition Summary: 11/14/24 12:41 Discharge Ordered Notes: Location: Home rt Problem: new rt Symptoms: have improved rt Condition: Stable rt Diagnosis - Radiculopathy, lumbar region rt Followup: rt - With: Private Physician - When: 2 - 3 days - Reason: Discharge Instructions: - Discharge Summary Sheet rt - Lumbosacral Radiculopathy rt Forms: - Medication Reconciliation Form rt - Antibiotic Education rt - Prescription Opioid Use rt - Patient Portal Instructions rt - Leadership Thank You Letter rt Prescriptions: - Tramadol 50 mg Oral tablet - take 1 tablet ORAL route every 8 hours as needed; 15 tablet; Refills: 0, rt Product Selection Permitted Signatures: Dispatcher [employer] Idania Morton, AMBER RN hb Ervin Blake MD MD rt Marissa Hicks RN RN kj2
[2024-11-14 14:37] VITALS: TEMP 98
[2024-11-14 14:41] VITALS: BP 147/69; O2SAT 100
== END 2024-11-14 12:57 | disposition home or self-care (01) ==
LOC: ER 10:42
DX: M54.16 Radiculopathy, lumbar region (principal)
CPT/HCPCS: 93971; 99283

== ENCOUNTER 2025-01-22 18:50 | Inpatient (IN) | payer OTHER ==
--- OUTSIDE RECORDS SUMMARY | 2025-01-22 18:55 | XMS REPORT | Continuity of Care Document ---
Author Name Unknown Address [address] [facility] [address] [place] [address] [facility] Address [address] [facility] [address] [place] [address] Care Team Providers Care Rating Clerk Name Role Phone Sudha Traore Primary Care Physician [phone] Karlee Colvin Attending Clinician Unavailable Sudha Traore Attending Clinician Unavailable Azar Watson Attending Clinician Unavailable Marissa Rodriguez Attending Clinician Unavailable Shilpa Stanley Attending Clinician [phone] Germaine Laboy Attending Clinician Anabelle Malik Attending Clinician [phone] Madonna Talavera Attending Clinician [phone] [email or web address] Attending Clinician Unavaila ble Doctor Unassigned, [place] Attending Clinician U navailable SHILPA BOURGEOIS Attending Clinician Unavailable Taj_Ranjit Attending Clinician Unavailable Shilpa Bourgeois PA-C Attending Clinician [phone] [email or web address] Admitting Clinician Unavaila ble Adams_R Admitting Clinician Unavailable Payers Payer Name Policy Type Policy Number Effective Date Expirati on Date Source [employer] (MEDICARE REPLACEMENT HMO) [id number] 2021 00:00:00 [employer] Replace C1 [id number] [facility] [employer] Medicare Replace C1 [id number] [facility] [employer] Medicare Replace C1 [id number] [facility] [employer] Replace C1 [id number] [facility] [employer] Replace C1 [id number] [facility] Problems Condition Name Condition Details Condition Category Status Onset Date Resolution Date Last Treatment Date Treating Clinician Comments Source Essential hypertensi on, benign Essential hypertensi on, benign Disease Active 04-08 00:00: 00 [facility] Hyperlipid emia Hyperlipid emia Disease Active 04-08 00:00: 00 [facility] Venous (periphera l) insufficie ncy Venous (periphera l) insufficie ncy Disease Active 05-12 00:00: 00 Overview: Formattin g of this note might be different from the original. 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 Disease Active 12-11 00:00: 00 [facility] [id number] Family history of heart disease Problem [facility] Mixed hyperlipid emia Hyperlipid emia, mixed Problem [facility] Polyp colon Colon polyp Problem [facility] [id number] Generalize d weakness Problem [facility] [id number] Polyarthra lgia Problem [facility] Sickle cell trait Sickle-mateo l trait Problem [facility] [id number] Hyperurice davy Problem [facility] Pulmonary hypertensi on Pulmonary hypertensi on Problem [facility] [id number] Diverticul osis large intestine w/o perforatio n or abscess w/o bleeding Problem Common [facility] [id number] Left foot pain Problem [facility] Iron deficiency anemia due to chronic blood loss Iron deficiency anemia due to chronic blood loss Problem Common [facility] [id number] Diverticul osis Problem Common [facility] Heel pain Heel pain Problem Comm on [facility] Glaucoma Other specified glaucoma Problem Common [facility] [id number] Pain in left leg Problem Common [facility] [id number] Pain in right leg Problem [facility] [id number] Tiredness Problem Comm on [facility] [id number] Legal blindness Problem [facility] [id number] Acute midline low back pain with left-sided sciatica Problem [facility] [id number] Acute gout of right foot, unspecifie d cause Problem Common [facility] Gout Gout Problem [facility] [id number] Urinary frequency Problem [facility] [id number] Depression with anxiety Problem [facility] [id number] 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, unspecifie d type Problem [facility] Blindness AND/OR vision impairment level (disorder) Blindness and low vision Problem [facility] Blindness, bilateral Blindness, bilateral Problem [facility] [id number] Lumbar spondylosi s Problem Common [facility] Chronic kidney disease stage 3A Stage 3a chronic kidney disease Problem Common [facility] [id number] Lumbar radiculopa thy Problem Common [facility] [id number] Central stenosis of spinal canal Problem Common [facility] Spinal stenosis of lumbar region Spinal stenosis, lumbar region without neurogenic claudicati on Problem Common [facility] Lumbosacra l spondylosi s without myelopathy Other spondylosi s with radiculopa thy, lumbar region Problem Common [facility] 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 Problem [facility] [id number] Urinary incontinen ce, unspecifie d type Problem [facility] [id number] Left adrenal mass Problem [facility] [id number] History of colon polyps Problem [facility] [id number] Gastroesop hageal reflux disease, unspecifie d whether esophagiti s present Problem [facility] [id number] Other chronic pain Problem [facility] [id number] Injury of right acromiocla vicular joint, initial encounter Problem [facility] [id number] Pain, joint, shoulder, right Problem [facility] 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 Problem [facility] [id number] Mild intermitte nt asthma without complicati on Problem [facility] Chronic kidney disease stage 3B (disorder) Stage 3b chronic kidney disease (CKD) Problem [facility] [id number] Pain in right foot Problem [facility] [id number] Memory changes Problem [facility] [id number] Pain, joint, ankle, right Problem [facility] [id number] Pain in left ankle and joints of left foot Problem [facility] [id number] Anemia in chronic kidney disease Problem Common [facility] Varicose vein Varicose vein Problem [facility] [id number] Body mass index (BMI) of 40.0-44.9 in adult Problem [facility] Chronic renal disease Chronic kidney disease, unspecifie d CKD stage Problem [facility] Essential hypertensi on Benign essential HTN Problem [facility] [id number] Morbid obesity Problem [facility] [id number] Iron deficiency anemia, unspecifie d iron deficiency anemia type Problem [facility] [id number] Rash and nonspecifi c skin eruption Problem [facility] [id number] Varicose veins of both lower extremitie s, unspecifie d whether complicate d Problem [facility] Obesity Obesity Problem [facility] Allergies, Adverse Reactions, Alerts Allergy Name Allergy Type Status Severity Reaction(s) Onset Date Inactive Date Treating Clinician Comments Source NO KNOWN ALLERGIE S Drug Class Active [facility] Social History Social Habit Start Date Stop Date Quantity Comments Source Exposure to SARS-CoV-2 (event) Not sure [facility] History of Tobacco Use [facility] Sex Assigned At [facility] Alcohol intake 2021-06-15 00:00:00 2021-06-15 00:00:00 Current non-drinker of alcohol (finding) [facility] Tobacco use and exposure 2010-12-11 00:00:00 2010-12-11 00:00:00 Smokeless tobacco non-user [facility] Smoking Status Start Date Stop Date Source Never Smoker [facility] Medications Ordered Medication Name Filled Medication Name Start Date Stop Date Current Medication? Ordering Clinician Indication Dosage Frequency Signature (SIG) Comments Components Source Aspir-81 81 MG Aspir-81 81 MG 3- 00:00: 00 No 1{table t} QD Aspir-81 81 MG Toilet Seat Elevator - Toilet Seat Elevator - 2-03 00:00: 00 No Toilet Seat Elevator - Rosuvastati n Calcium 10 MG Rosuvastati n Calcium 10 MG 7- 00:00: 00 No 1{table t} QD Rosuvastat in Calcium 10 MG Lidocaine Lidocaine 2021-10 00:00: 00 No 20mg [facility] Kenalog (Triamcinol one) Kenalog (Triamcinol one) 2021-10 00:00: 00 No 40mg [facility] losartan (COZAAR) 25 mg tablet 01-13 13:56: 11 Yes 25mg Take 25 mg by mouth daily. [facility] Cholecalcif greg, Vitamin D3, (VITAMIN D3) 1,000 unit Cap 01-13 13:56: 11 Yes 1{capsu le} Take 1 Cap by mouth daily. [facility] aspirin (ASPIRIN CHILDRENS) 81 mg chewable tablet 01-13 13:56: 11 Yes 81mg Take 81 mg by mouth daily. [facility] losartan (COZAAR) 25 mg tablet 01-13 08:56: 11 Yes 25mg Take 25 mg by mouth daily. [facility] Cholecalcif greg, Vitamin D3, (VITAMIN D3) 1,000 unit Cap 01-13 08:56: 11 Yes 1{capsu le} Take 1 Cap by mouth daily. [facility] aspirin (ASPIRIN CHILDRENS) 81 mg chewable tablet 01-13 08:56: 11 Yes 81mg Take 81 mg by mouth daily. [facility] buPROPion 100 mg tablet 2019-10 00:00: 00 Yes 100mg Take 100 mg by mouth. [facility] triamcinolo ne 0.1 % lotion 04-12 00:00: 00 Yes Apply to area(s) 3 (three) times daily. [facility] losartan (COZAAR) 25 mg tablet 04-08 16:22: 43 Yes 25mg Take 25 mg by mouth daily. [facility] Cholecalcif greg, Vitamin D3, (VITAMIN D3) 1,000 unit Cap 04-08 15:54: 30 Yes 1{capsu le} Take 1 Cap by mouth daily. [facility] aspirin (ASPIRIN CHILDRENS) 81 mg chewable tablet 04-08 15:54: 30 Yes 81mg Take 81 mg by mouth daily. [facility] metoprolol tartrate (LOPRESSOR) 100 mg tablet 04-19 00:00: 00 Yes 100mg Take 1 Tab by mouth daily. [facility] pravastatin (PRAVACHOL) 40 mg tablet 12-09 00:00: 00 Yes 40mg Take 40 mg by mouth 2 (two) times daily. [facility] ferrous sulfate (IRON) 325 mg (65 mg Iron) tablet 2011-0 2-18 00:00: 00 Yes 325mg Take 325 mg by mouth daily. [facility] albuterol sulfate hfa 108 (90 base) mcg/act [...] t} QD Pantoprazo le Sodium 40 MG Lumigan 0.01 % Lumigan 0.01 % [...] 1{table t} QD Furosemide 20 MG Nystatin 986384 UNIT/GM Nystatin 881321 UNIT/GM No 1{appli cation} BID Nystatin 565358 UNIT/GM Olmesartan Medoxomil 20 MG Olmesartan Medoxomil 20 MG No 1{table t} QD Olmesartan Medoxomil 20 MG Gabapentin 100 MG Gabapentin 100 MG No 1{capsu le} QD Gabapentin 100 MG Jardiance 10 MG Jardiance 10 MG No 1{table t} QD Jardiance 10 MG pantoprazol e sodium [address] pantoprazol e sodium [address] Yes [facility] allopurinol 100 mg tablet allopurinol 100 mg tablet Yes [facility] Vital Signs Vital Name Observation Time Observation Value Comments S ource height 2025-01-16 10:00:00 64 [in_i] Commo n [facility] weight 2025-01-16 10:00:00 246.2 [lb_av] Co mmon [facility] temperature 2025-01-16 10:00:00 97.5 [degF] Com mon [facility] bmi 2025-01-16 10:00:00 42.26 kg/m2 Comm on [facility] oximetry 2025-01-16 10:00:00 98 % Commo n [facility] blood pressure systolic 2025-01-16 10:00:00 142 mm[Hg] [facility] blood pressure diastolic 2025-01-16 10:00:00 74 mm[Hg] [facility] height 2024-09-03 13:20:00 64 [in_i] Commo n [facility] weight 2024-09-03 13:20:00 242 [lb_av] Comm on [facility] temperature 2024-09-03 13:20:00 97.1 [degF] Com mon [facility] bmi 2024-09-03 13:20:00 41.53 kg/m2 Comm on [facility] oximetry 2024-09-03 13:20:00 99 % Commo n [facility] respiratory rate 2024-09-03 13:20:00 16 /min Common [facility] blood pressure systolic 2024-09-03 13:20:00 130 mm[Hg] Common [facility] blood pressure diastolic 2024-09-03 13:20:00 82 mm[Hg] [facility] height 2024-08-13 14:00:00 64 [in_i] Commo n [facility] weight 2024-08-13 14:00:00 243 [lb_av] Comm on [facility] temperature 2024-08-13 14:00:00 97.2 [degF] Com [facility] bmi 2024-08-13 14:00:00 41.71 kg/m2 Comm on [facility] oximetry 2024-08-13 14:00:00 96 % Commo n [facility] respiratory rate 2024-08-13 14:00:00 16 /min [facility] blood pressure systolic 2024-08-13 14:00:00 120 mm[Hg] [facility] blood pressure diastolic 2024-08-13 14:00:00 62 mm[Hg] [facility] height 2024-07-29 13:00:00 64 [in_i] Commo n [facility] weight 2024-07-29 13:00:00 247 [lb_av] Comm on [facility] temperature 2024-07-29 13:00:00 97.3 [degF] Com [facility] bmi 2024-07-29 13:00:00 42.39 kg/m2 Comm on [facility] oximetry 2024-07-29 13:00:00 99 % Commo n [facility] respiratory rate 2024-07-29 13:00:00 16 /min Common [facility] height 2024-05-13 09:20:00 64 [in_i] Commo n [facility] weight 2024-05-13 09:20:00 240 [lb_av] Comm on [facility] temperature 2024-05-13 09:20:00 97.3 [degF] Com [facility] bmi 2024-05-13 09:20:00 41.19 kg/m2 Comm on [facility] oximetry 2024-05-13 09:20:00 99 % Commo n [facility] respiratory rate 2024-05-13 09:20:00 16 /min [facility] blood pressure systolic 2024-05-13 09:20:00 120 mm[Hg] [facility] blood pressure diastolic 2024-05-13 09:20:00 72 mm[Hg] [facility] height 2024-05-13 09:20:00 64 [in_i] Commo n [facility] weight 2024-05-13 09:20:00 240 [lb_av] Comm on [facility] temperature 2024-05-13 09:20:00 97.3 [degF] Com [facility] bmi 2024-05-13 09:20:00 41.19 kg/m2 Comm on [facility] oximetry 2024-05-13 09:20:00 99 % Commo n [facility] respiratory rate 2024-05-13 09:20:00 16 /min [facility] blood pressure systolic 2024-05-13 09:20:00 120 mm[Hg] [facility] blood pressure diastolic 2024-05-13 09:20:00 72 mm[Hg] [facility] height 2024-04-01 09:40:00 64 [in_i] Commo n [facility] weight 2024-04-01 09:40:00 232.8 [lb_av] Co mmon [facility] temperature 2024-04-01 09:40:00 97.2 [degF] Com mon [facility] bmi 2024-04-01 09:40:00 39.96 kg/m2 Comm on [facility] oximetry 2024-04-01 09:40:00 99 % Commo n [facility] respiratory rate 2024-04-01 09:40:00 16 /min Common [facility] blood pressure systolic 2024-04-01 09:40:00 138 mm[Hg] [facility] blood pressure diastolic 2024-04-01 09:40:00 86 mm[Hg] [facility] height 2024-01-30 08:40:00 64 [in_i] Commo n [facility] weight 2024-01-30 08:40:00 236 [lb_av] Comm on [facility] temperature 2024-01-30 08:40:00 97.3 [degF] Com [facility] bmi 2024-01-30 08:40:00 40.5 kg/m2 Commo n [facility] oximetry 2024-01-30 08:40:00 98 % Commo n [facility] respiratory rate 2024-01-30 08:40:00 16 /min Common [facility] blood pressure systolic 2024-01-30 08:40:00 136 mm[Hg] [facility] blood pressure diastolic 2024-01-30 08:40:00 84 mm[Hg] [facility] height 2023-10-12 10:00:00 64 [in_i] Commo n [facility] weight 2023-10-12 10:00:00 242 [lb_av] Comm on [facility] temperature 2023-10-12 10:00:00 97.2 [degF] Com mon [facility] bmi 2023-10-12 10:00:00 41.53 kg/m2 Comm on [facility] oximetry 2023-10-12 10:00:00 98 % Commo n [facility] respiratory rate 2023-10-12 10:00:00 16 /min Common [facility] blood pressure systolic 2023-10-12 10:00:00 126 mm[Hg] [facility] blood pressure diastolic 2023-10-12 10:00:00 70 mm[Hg] [facility] height 2023-07-11 10:00:00 64 [in_i] Commo n [facility] weight 2023-07-11 10:00:00 240.0 [lb_av] Co mmon [facility] temperature 2023-07-11 10:00:00 97.2 [degF] Com [facility] bmi 2023-07-11 10:00:00 41.19 kg/m2 Comm on [facility] oximetry 2023-07-11 10:00:00 99 % Commo n [facility] respiratory rate 2023-07-11 10:00:00 16 /min [facility] blood pressure systolic 2023-07-11 10:00:00 134 mm[Hg] [facility] blood pressure diastolic 2023-07-11 10:00:00 70 mm[Hg] [facility] height 2023-05-28 14:40:00 64 [in_i] Commo n [facility] weight 2023-05-28 14:40:00 240 [lb_av] Comm on [facility] temperature 2023-05-28 14:40:00 97.3 [degF] Com mon [facility] bmi 2023-05-28 14:40:00 41.19 kg/m2 Comm on [facility] oximetry 2023-05-28 14:40:00 99 % Commo n [facility] respiratory rate 2023-05-28 14:40:00 17 /min Common [facility] blood pressure systolic 2023-05-28 14:40:00 134 mm[Hg] [facility] blood pressure diastolic 2023-05-28 14:40:00 78 mm[Hg] [facility] height 2023-04-06 09:40:00 64 [in_i] Commo n [facility] weight 2023-04-06 09:40:00 242.2 [lb_av] Co mmon [facility] temperature 2023-04-06 09:40:00 97.3 [degF] Com [facility] bmi 2023-04-06 09:40:00 41.57 kg/m2 Comm on [facility] oximetry 2023-04-06 09:40:00 98 % Commo n [facility] respiratory rate 2023-04-06 09:40:00 16 /min Common [facility] blood pressure systolic 2023-04-06 09:40:00 138 mm[Hg] [facility] blood pressure diastolic 2023-04-06 09:40:00 72 mm[Hg] [facility] height 2023-02-07 10:00:00 64 [in_i] Commo n [facility] weight 2023-02-07 10:00:00 246 [lb_av] Comm on [facility] temperature 2023-02-07 10:00:00 97.3 [degF] Com [facility] bmi 2023-02-07 10:00:00 42.22 kg/m2 Comm on [facility] oximetry 2023-02-07 10:00:00 99 % Commo n [facility] respiratory rate 2023-02-07 10:00:00 16 /min Common [facility] blood pressure systolic 2023-02-07 10:00:00 128 mm[Hg] [facility] blood pressure diastolic 2023-02-07 10:00:00 74 mm[Hg] [facility] height 2023-01-29 09:00:00 64 [in_i] Commo n [facility] weight 2023-01-29 09:00:00 250 [lb_av] Comm on [facility] temperature 2023-01-29 09:00:00 97.2 [degF] Com [facility] bmi 2023-01-29 09:00:00 42.91 kg/m2 Comm on [facility] blood pressure systolic 2023-01-29 09:00:00 131 mm[Hg] [facility] blood pressure diastolic 2023-01-29 09:00:00 71 mm[Hg] [facility] height 2022-11-24 08:20:00 64 [in_i] Commo n [facility] weight 2022-11-24 08:20:00 247 [lb_av] Comm on [facility] temperature 2022-11-24 08:20:00 97.6 [degF] Com mon [facility] bmi 2022-11-24 08:20:00 42.39 kg/m2 Comm on [facility] oximetry 2022-11-24 08:20:00 99 % Commo n [facility] respiratory rate 2022-11-24 08:20:00 16 /min Common [facility] blood pressure systolic 2022-11-24 08:20:00 130 mm[Hg] [facility] blood pressure diastolic 2022-11-24 08:20:00 70 mm[Hg] [facility] height 2022-11-08 09:00:00 64 [in_i] Commo n [facility] weight 2022-11-08 09:00:00 246.4 [lb_av] Co on [facility] bmi 2022-11-08 09:00:00 42.29 kg/m2 Comm on [facility] height 2022-09-04 11:00:00 64 [in_i] Commo n [facility] weight 2022-09-04 11:00:00 246.4 [lb_av] Co on [facility] temperature 2022-09-04 11:00:00 97.3 [degF] Com [facility] bmi 2022-09-04 11:00:00 42.29 kg/m2 Comm on [facility] oximetry 2022-09-04 11:00:00 98 % Commo n [facility] respiratory rate 2022-09-04 11:00:00 16 /min [facility] blood pressure systolic 2022-09-04 11:00:00 132 mm[Hg] [facility] blood pressure diastolic 2022-09-04 11:00:00 68 mm[Hg] [facility] height 2022-08-23 09:00:00 64 [in_i] Commo n [facility] weight 2022-08-23 09:00:00 242 [lb_av] Comm on [facility] temperature 2022-08-23 09:00:00 97.3 [degF] Com [facility] bmi 2022-08-23 09:00:00 41.53 kg/m2 Comm on [facility] blood pressure systolic 2022-08-23 09:00:00 132 mm[Hg] [facility] blood pressure diastolic 2022-08-23 09:00:00 80 mm[Hg] [facility] height 2022-08-02 09:00:00 64 [in_i] Commo n [facility] weight 2022-08-02 09:00:00 242 [lb_av] Comm on [facility] temperature 2022-08-02 09:00:00 97.3 [degF] Com [facility] bmi 2022-08-02 09:00:00 41.53 kg/m2 Comm on [facility] blood pressure systolic 2022-08-02 09:00:00 136 mm[Hg] [facility] blood pressure diastolic 2022-08-02 09:00:00 80 mm[Hg] [facility] height 2022-07-05 10:00:00 64 [in_i] Commo n [facility] weight 2022-07-05 10:00:00 240 [lb_av] Comm on [facility] temperature 2022-07-05 10:00:00 97.1 [degF] Com [facility] bmi 2022-07-05 10:00:00 41.19 kg/m2 Comm on [facility] blood pressure systolic 2022-07-05 10:00:00 136 mm[Hg] [facility] [facility] blood pressure diastolic 2022-07-05 10:00:00 84 mm[Hg] [facility] height 2022-05-30 10:00:00 64 [in_i] Commo n [facility] weight 2022-05-30 10:00:00 250.0 [lb_av] Co mmon [facility] temperature 2022-05-30 10:00:00 97.6 [degF] Com [facility] bmi 2022-05-30 10:00:00 42.91 kg/m2 Comm on [facility] oximetry 2022-05-30 10:00:00 97 % Commo n [facility] respiratory rate 2022-05-30 10:00:00 18 /min Common [facility] blood pressure systolic 2022-05-30 10:00:00 136 mm[Hg] [facility] blood pressure diastolic 2022-05-30 10:00:00 70 mm[Hg] [facility] height 2022-02-24 10:00:00 64 [in_i] Commo n [facility] weight 2022-02-24 10:00:00 244.6 [lb_av] Co mmon [facility] temperature 2022-02-24 10:00:00 97.2 [degF] Com mon [facility] bmi 2022-02-24 10:00:00 41.98 kg/m2 Comm on [facility] oximetry 2022-02-24 10:00:00 98 % Commo n [facility] respiratory rate 2022-02-24 10:00:00 18 /min [facility] blood pressure systolic 2022-02-24 10:00:00 135 mm[Hg] [facility] blood pressure diastolic 2022-02-24 10:00:00 82 mm[Hg] Common [facility] height 2022-01-16 10:20:00 64 [in_i] Commo n [facility] weight 2022-01-16 10:20:00 240 [lb_av] Comm on [facility] temperature 2022-01-16 10:20:00 97.8 [degF] Com mon [facility] bmi 2022-01-16 10:20:00 41.19 kg/m2 Comm on [facility] oximetry 2022-01-16 10:20:00 99 % Commo n [facility] respiratory rate 2022-01-16 10:20:00 18 /min [facility] blood pressure systolic 2022-01-16 10:20:00 136 mm[Hg] [facility] blood pressure diastolic 2022-01-16 10:20:00 82 mm[Hg] Common [facility] height 2021-11-16 09:00:00 64 [in_i] Commo n [facility] weight 2021-11-16 09:00:00 241 [lb_av] Comm on [facility] bmi 2021-11-16 09:00:00 41.36 kg/m2 Comm on [facility] height 2021-09-09 08:40:00 64 [in_i] Commo n [facility] weight 2021-09-09 08:40:00 241 [lb_av] Comm on [facility] bmi 2021-09-09 08:40:00 41.36 kg/m2 Comm on [facility] height 2021-08-18 09:00:00 64 [in_i] Commo n [facility] weight 2021-08-18 09:00:00 241.0 [lb_av] Co mmon [facility] temperature 2021-08-18 09:00:00 96.9 [degF] Com mon [facility] bmi 2021-08-18 09:00:00 41.36 kg/m2 Comm on [facility] oximetry 2021-08-18 09:00:00 99 % Commo n [facility] respiratory rate 2021-08-18 09:00:00 18 /min Common [facility] blood pressure systolic 2021-08-18 09:00:00 120 mm[Hg] [facility] blood pressure diastolic 2021-08-18 09:00:00 74 mm[Hg] [facility] Systolic blood pressure 2021-06-15 14:30:00 131 mm[Hg] [facility] Diastolic blood pressure 2021-06-15 14:30:00 75 mm[Hg] [facility] Heart rate 2021-06-15 14:25:00 78 /min [facility] Body temperature 2021-06-15 14:25:00 36.78 [place] [facility] Respiratory rate 2021-06-15 14:25:00 18 /min [facility] Body height 2021-06-15 14:25:00 170.2 cm [facility] Body weight 2021-06-15 14:25:00 113.671 kg [facility] BMI 2021-06-15 14:25:00 39.25 kg/m2 [facility] Systolic blood pressure 2021-01-13 13:54:00 125 mm[Hg] [facility] Diastolic blood pressure 2021-01-13 13:54:00 69 mm[Hg] [facility] Heart rate 2021-01-13 13:54:00 75 /min [facility] Body temperature 2021-01-13 13:54:00 36.67 [place] Respiratory rate 2021-01-13 13:54:00 16 /min [facility] Body height 2021-01-13 13:54:00 170.2 cm [facility] Body weight 2021-01-13 13:54:00 109.045 kg [facility] BMI 2021-01-13 13:54:00 37.65 kg/m2 [facility] Procedures Procedure Date / Time Performed Performing Clinician Source EXTERNAL PROVIDER RECORDS 2023-03-27 05:01:00 Do ctor Unassigned, [place] [facility] US PELVIS COMPLETE WITH TRANSVAGINAL 2021-05-11 15:20:44 Shilpa Bourgeois [facility] ASSIGNMENT OF BENEFITS 2021-05-11 13:41:33 Docto r Unassigned, [place] [facility] EXTERNAL PROVIDER RECORDS 2021-01-24 05:01:00 Do ctor Unassigned, [place] [facility] INSURANCE CORRESPONDENCE 2021-01-19 05:01:00 Doc tor Unassigned, [place] [facility] AUTHORIZATION TO RELEASE PHI TO [facility] 2021-01-13 05:01:00 Doctor Unassigned, [place] [facility] Encounters Start Date/Time End Date/Time Encounter Type Admission Type Attending Clinicians Care Facility Care Department Encounter ID Source 2024-11-14 11:08:00 Outpatient Colvin, Karlee STLMLC ST[facility] [id number] [facility] 2024-11-05 11:28:00 Outpatient Colvin, Karlee STLMLC ST[facility]C [id number] [facility] 2024-08-13 09:12:00 Outpatient Colvin, Karlee STLMLC STLMLC [id number] [facility] 2024-07-29 10:28:00 Outpatient Colvin, Karlee STLMLC STLMLC [id number] [facility] 2024-05-09 10:19:00 Outpatient Colvin, Karlee STLMLC STLMLC [id number] [facility] 2024-01-28 09:20:00 Outpatient Colvin, Karlee STLMLC STLMLC [id number] [facility] 2023-11-20 15:38:00 Outpatient Colvin, Karlee STLMLC STLMLC [id number] [facility] 2023-10-11 15:49:00 Outpatient Colvin, Karlee STLMLC STLMLC [id number] [facility] 2023-10-10 11:02:00 Outpatient Colvin, Karlee STLMLC STLMLC [id number] [facility] 2023-05-25 09:01:00 Outpatient Colvin, Karlee STLMLC STLMLC [id number] [facility] 2023-04-04 09:55:00 Outpatient Colvin, Karlee STLMLC STLMLC [id number] [facility] 2023-02-06 13:31:00 Outpatient Colvin, Karlee STLMLC STLMLC [id number] [facility] 2023-02-05 16:18:00 Outpatient Colvin, Karlee STLMLC STLMLC [id number] [facility] 2023-01-30 15:37:00 Outpatient ColvinKarlee shaw STLMLC STLMLC [id number] [facility] 2022-11-24 09:46:00 Outpatient ColvinKarlee shaw STLMLC STLMLC [id number] [facility] 2022-11-08 08:23:00 Outpatient ColvinKarlee STLMLC STLMLC [id number] [facility] 2022-11-07 15:16:00 Outpatient ColvinKarlee STLMLC STLMLC [id number] [facility] 2022-10-27 12:43:00 Outpatient ColvinKarlee shaw STLMLC STLMLC [id number] [facility] 2022-08-31 11:26:00 Outpatient Traore, Na STLMLC STLMLC [id number] [facility] 2022-08-02 09:07:01 Outpatient Traore, Na STLMLC STLMLC [id number] [facility] 2022-07-06 09:32:00 Outpatient Traore, Na STLMLC STLMLC [id number] [facility] 2022-07-05 10:27:00 Outpatient Traore, Na STLMLC STLMLC [id number] [facility] 2022-06-27 09:27:01 Outpatient Traore, Na STLMLC STLMLC [id number] [facility] 2022-05-26 10:09:00 Outpatient Traore, Na STLMLC STLMLC [id number] [facility] 2022-02-22 08:24:02 Outpatient Traore, Na STLMLC STLMLC [id number] [facility] 2022-01-16 10:10:00 Outpatient Sudha Traore STLMLC STLMLC [id number] [facility] 2021-11-16 14:32:02 Outpatient Sudha Traore STLMLC STLMLC [id number] [facility] 2021-11-16 14:31:06 Outpatient Sudha Traore STLMLC STLMLC [id number] [facility] 2021-11-16 13:09:20 Outpatient Sudha Traore STLMLC STLMLC [id number] [facility] 2021-11-16 12:39:12 Outpatient Sudha Traore STLMLC STLMLC [id number] [facility] 2021-11-16 12:34:08 Outpatient Sudha Traore STLMLC STLMLC [id number] [facility] 2021-11-16 12:25:21 Outpatient Sudha Traore STLMLC STLMLC [id number] [facility] 2021-11-16 12:25:09 Outpatient Sudha Traore STLMLC STLMLC [id number] [facility] 2021-11-16 12:14:55 Outpatient Sudha Traore STLMLC STLMLC [id number] [facility] 2021-11-16 12:14:45 Outpatient Azar Watson STLMLC STLMLC [id number] [facility] 2021-11-16 12:11:09 Outpatient Azar Watson STLMLC STLMLC [id number] [facility] 2021-11-16 12:08:17 Outpatient Azar Watson STLMLC STLMLC [id number] [facility] 2021-11-16 12:06:49 Outpatient Azar Watson STLMLC STLMLC [id number] [facility] 2021-11-16 12:01:10 Outpatient STLMLC STLMLC [id number] [facility] 2021-11-16 11:27:56 Outpatient Marissa Rodriguez STGARLANDLC STLMLC [id number] [facility] 2021-11-16 11:13:44 Outpatient Marissa Rodriguez STLMLC STLMLC [id number] [facility] 2021-11-16 11:09:05 Outpatient Marissa Rodriguez STLMLC STLMLC [id number] [facility] 2021-11-16 11:06:45 Outpatient Marissa Rodriguez STLMLC STLMLC [id number] [facility] 2025-01-16 00:00:00 2025-01-16 00:00:00 OFFICE VISIT ESTAB PT LEVEL 4 ST[facility]MLC STLMLC [id number] [facility] 2025-01-12 00:00:00 2025-01-12 00:00:00 (TEL) STLMLC STLMLC [id number] [facility] 2025-01-09 00:00:00 2025-01-09 00:00:00 (TEL) STLMLC STLMLC [id number] [facility] 2024-12-22 00:00:00 2024-12-22 00:00:00 (TEL) STLMLC STLMLC [id number] [facility] 2024-12-12 00:00:00 2024-12-12 00:00:00 (TEL) STLMLC STLMLC [id number] [facility] 2024-12-04 00:00:00 2024-12-04 00:00:00 (TEL) STLMLC STLMLC [id number] [facility] 2024-11-27 00:00:00 2024-11-27 00:00:00 (TEL) STLMLC STLMLC [id number] [facility] 2024-11-24 00:00:00 2024-11-24 00:00:00 (TEL) STLMLC STLMLC [id number] [facility] 2024-11-24 00:00:00 2024-11-24 00:00:00 (TEL) STLMLC STLMLC [id number] [facility] 2024-11-14 00:00:00 2024-11-14 00:00:00 (TEL) STLMLC STLMLC [id number] [facility] 2024-11-12 00:00:00 2024-11-12 00:00:00 (TEL) STLMLC STLMLC [id number] [facility] 2024-10-29 00:00:00 2024-10-29 00:00:00 (TEL) STLMLC STLMLC [id number] [facility] 2024-10-08 00:00:00 2024-10-08 00:00:00 (TEL) STLMLC STLMLC [id number] [facility] 2024-10-01 00:00:00 2024-10-01 00:00:00 (TEL) STLMLC STLMLC [id number] [facility] 2024-09-23 07:30:00 2024-09-23 07:50:00 ED Follow Up ([facility]) Shilpa BOSWELL [id number] [facility] 2024-09-15 00:00:00 2024-09-15 00:00:00 (TEL) STLMLC STLMLC [id number] [facility] 2024-09-03 00:00:00 2024-09-03 00:00:00 OFFICE VISIT ESTAB PT LEVEL 4 STLMLC STLMLC [id number] [facility] 2024-08-13 00:00:00 2024-08-13 00:00:00 (HOSP F/U) Hospital Follow Up STLMLC STLMLC [id number] [facility] 2024-08-11 00:00:00 2024-08-11 00:00:00 (TEL) STLMLC STLMLC [id number] [facility] 2024-07-31 00:00:00 2024-07-31 00:00:00 (TEL) STLMLC STLMLC [id number] [facility] 2024-07-30 14:00:00 2024-07-30 15:00:00 Annual D2Me Salli Gisellear [id number]. [id number]. [id number] [address] [place] [address] 2024-07-29 00:00:00 2024-07-29 00:00:00 OFFICE VISIT ESTAB PT LEVEL 4 STLMLC STLMLC [id number] [facility] 2024-07-28 00:00:00 2024-07-28 00:00:00 (TEL) STLMLC STLMLC [id number] [facility] 2024-07-22 00:00:00 2024-07-22 00:00:00 (TEL) STLMLC STLMLC [id number] [facility] 2024-06-02 00:00:00 2024-06-02 00:00:00 (TEL) STLMLC STLMLC [id number] [facility] 2024-05-14 00:00:00 2024-05-14 00:00:00 (TEL) STLMLC STLMLC [id number] [facility] 2024-05-13 00:00:00 2024-05-13 00:00:00 OFFICE VISIT ESTAB PT LEVEL 4 STLMLC STLMLC [id number] [facility] 2024-05-06 00:00:00 2024-05-06 00:00:00 (TEL) STLMLC STLMLC [id number] [facility] 2024-05-02 00:00:00 2024-05-02 00:00:00 (TEL) STLMLC STLMLC [id number] [facility] 2024-05-02 00:00:00 2024-05-02 00:00:00 (TEL) STLMLC STLMLC [id number] [facility] 2024-05-01 00:00:00 2024-05-01 00:00:00 (TEL) STLMLC STLMLC [id number] [facility] 2024-04-16 00:00:00 2024-04-16 00:00:00 (TEL) STLMLC STLMLC [id number] [facility] 2024-04-04 00:00:00 2024-04-04 00:00:00 (TEL) STLMLC STLMLC [id number] [facility] 2024-04-02 14:00:00 2024-04-02 14:30:00 [place] [id number]. [id number]. [id number] [address] [place] [address] 2024-04-01 00:00:00 2024-04-01 00:00:00 OFFICE VISIT ESTAB PT LEVEL 4 STLMLC STLMLC [id number] [facility] 2024-03-31 00:00:00 2024-03-31 00:00:00 (TEL) STLMLC STLMLC [id number] [facility] 2024-03-25 00:00:00 2024-03-25 00:00:00 (TEL) STLMLC STLMLC [id number] [facility] 2024-02-20 00:00:00 2024-02-20 00:00:00 (TEL) STLMLC STLMLC [id number] [facility] 2024-01-30 00:00:00 2024-01-30 00:00:00 OFFICE VISIT ESTAB PT LEVEL 4 STLMLC STLMLC [id number] [facility] 2023-12-26 00:00:00 2023-12-26 00:00:00 (TEL) STLMLC STLMLC [id number] [facility] 2023-12-18 00:00:00 2023-12-18 00:00:00 (TEL) STLMLC STLMLC [id number] [facility] 2023-11-20 00:00:00 2023-11-20 00:00:00 (TEL) STLMLC STLMLC [id number] [facility] 2023-10-16 00:00:00 2023-10-16 00:00:00 (TEL) STLMLC STLMLC [id number] [facility] 2023-10-12 00:00:00 2023-10-12 00:00:00 OFFICE VISIT ESTAB PT LEVEL 4 STLMLC STLMLC [id number] [facility] 2023-09-24 00:00:00 2023-09-24 00:00:00 (TEL) STLMLC STLMLC [id number] [facility] 2023-09-07 00:00:00 2023-09-07 00:00:00 (TEL) STLMLC STLMLC [id number] [facility] 2023-08-30 00:00:00 2023-08-30 00:00:00 (TEL) STLMLC STLMLC [id number] [facility] 2023-08-23 00:00:00 2023-08-23 00:00:00 (TEL) STLMLC STLMLC [id number] [facility] 2023-07-25 00:00:00 2023-07-25 00:00:00 (TEL) STLMLC STLMLC [id number] [facility] 2023-07-11 00:00:00 2023-07-11 00:00:00 (TEL) STLMLC STLMLC [id number] [facility] 2023-07-11 00:00:00 2023-07-11 00:00:00 OFFICE VISIT ESTAB PT LEVEL 4 STLMLC STLMLC [id number] [facility] 2023-07-02 00:00:00 2023-07-02 00:00:00 (TEL) STLMLC STLMLC [id number] [facility] 2023-06-11 18:00:00 2023-06-11 19:00:00 RachelMe Madonna Talavera 2.16.840. [id number] 2.16.840.1. [id number] 2023-06-11 00:00:00 2023-06-11 00:00:00 (TEL) STLMLC STLC [id number] [facility] 2023-06-04 00:00:00 2023-06-04 00:00:00 (TEL) STLMLC STLMLC [id number] [facility] 2023-05-31 00:00:00 2023-05-31 00:00:00 (TEL) STLMLC STLC [id number] [facility] 2023-05-30 00:00:00 2023-05-30 00:00:00 Outpatient GC_GCBZW_Ka diyala_S PRIV PRIV [id number] [facility] 2023-05-30 00:00:00 2023-05-30 00:00:00 Outpatient GC_GCBZW_Ka diyala_S PRIV PRIV [id number] [facility] 2023-05-28 00:00:00 2023-05-28 00:00:00 Outpatient GC_GCBZW_Ka diyala_S PRIV PRIV [id number] [facility] 2023-05-28 00:00:00 2023-05-28 00:00:00 OFFICE VISIT ESTAB PT LEVEL 4 STLMLC STLMLC [id number] [facility] 2023-05-22 00:00:00 2023-05-22 00:00:00 (TEL) STLMLC STLC [id number] [facility] 2023-05-15 00:00:00 2023-05-15 00:00:00 (TEL) STLMLC STLMLC [id number] [facility] 2023-05-01 00:00:00 2023-05-01 00:00:00 (TEL) STLMLC STLMLC [id number] [facility] 2023-04-06 00:00:00 2023-04-06 00:00:00 OFFICE VISIT ESTAB PT LEVEL 4 STLMLC STLMLC [id number] [facility] 2023-04-06 00:00:00 2023-04-06 00:00:00 (TEL) STLMLC STLMLC [id number] [facility] 2023-03-27 00:00:00 2023-03-27 00:00:00 Orders Only Doctor Unassigned, [place] [facility] [id number] [facility] 2023-02-21 00:00:00 2023-02-21 00:00:00 (TEL) STLMLC STLMLC [id number] [facility] 2023-02-07 00:00:00 2023-02-07 00:00:00 OFFICE VISIT ESTAB PT LEVEL 4 STLMLC STLMLC [id number] [facility] 2023-01-30 00:00:00 2023-01-30 00:00:00 (TEL) STLMLC STLMLC [id number] [facility] 2023-01-29 00:00:00 2023-01-29 00:00:00 OFFICE VISIT ESTAB PT LEVEL 3 STLMLC STLMLC [id number] [facility] 2023-01-23 00:00:00 2023-01-23 00:00:00 (TEL) STLMLC STLMLC [id number] [facility] 2023-01-19 00:00:00 2023-01-19 00:00:00 (TEL) STLMLC STLMLC [id number] [facility] 2022-12-08 00:00:00 2022-12-08 00:00:00 (TEL) STLMLC STLMLC [id number] [facility] 2022-12-06 00:00:00 2022-12-06 00:00:00 (TEL) STLMLC STLMLC [id number] [facility] 2022-11-28 00:00:00 2022-11-28 00:00:00 (TEL) STLMLC STLMLC [id number] [facility] 2022-11-24 00:00:00 2022-11-24 00:00:00 OFFICE VISIT ESTAB PT LEVEL 4 STLMLC STLMLC [id number] [facility] 2022-11-13 00:00:00 2022-11-13 00:00:00 (TEL) STLMLC STLMLC [id number] [facility] 2022-11-08 00:00:00 2022-11-08 00:00:00 OFFICE VISIT EST PT LEVEL 3 STLMLC STLMLC [id number] [facility] 2022-11-06 00:00:00 2022-11-06 00:00:00 (TEL) STLMLC STLMLC [id number] [facility] 2022-09-04 00:00:00 2022-09-04 00:00:00 OFFICE VISIT ESTAB PT LEVEL 4 STLMLC STLMLC [id number] [facility] 2022-08-23 00:00:00 2022-08-23 00:00:00 OFFICE VISIT EST PT LEVEL 3 STLMLC STLMLC [id number] [facility] 2022-08-02 00:00:00 2022-08-02 00:00:00 OFFICE VISIT EST PT LEVEL 3 STLMLC STLMLC [id number] [facility] 2022-07-05 00:00:00 2022-07-05 00:00:00 OFFICE VISIT NEW PT LEVEL 3 STLMLC STLMLC [id number] [facility] 2022-06-22 00:00:00 2022-06-22 00:00:00 (TEL) STLMLC STLMLC [id number] [facility] 2022-06-20 00:00:00 2022-06-20 00:00:00 (TEL) STLMLC STLMLC [id number] [facility] 2022-06-15 09:30:00 2022-06-15 09:30:00 Outpatient SHILPA [facility] [id number] [facility] 2022-05-31 00:00:00 2022-05-31 00:00:00 (TEL) STLMLC STLMLC [id number] [facility] 2022-05-30 00:00:00 2022-05-30 00:00:00 OFFICE VISIT ESTAB PT LEVEL 4 STLMLC STLMLC [id number] [facility] 2022-05-22 00:00:00 2022-05-22 00:00:00 (TEL) STLMLC STLMLC [id number] [facility] 2022-05-06 10:01:00 2022-05-06 10:01:00 Outpatient Adams_R DMG DMG [id number] [facility] 2022-05-06 00:00:00 2022-05-06 00:00:00 Outpatient Adams_R DMG DMG [id number] [facility] 2022-03-29 00:00:00 2022-03-29 00:00:00 (TEL) STLMLC STLMLC [id number] [facility] 2022-03-21 00:00:00 2022-03-21 00:00:00 (TEL) STLMLC STLMLC [id number] [facility] 2022-03-16 00:00:00 2022-03-16 00:00:00 (TEL) STLMLC STLMLC [id number] [facility] 2022-03-09 00:00:00 2022-03-09 00:00:00 (TEL) STLMLC STLMLC [id number] [facility] 2022-03-02 00:00:00 2022-03-02 00:00:00 (TEL) STLMLC STLMLC [id number] [facility] 2022-02-24 00:00:00 2022-02-24 00:00:00 OFFICE VISIT ESTAB PT LEVEL 4 STLMLC STLMLC [id number] [facility] 2022-02-13 00:00:00 2022-02-13 00:00:00 (TEL) STLMLC STLMLC [id number] [facility] 2022-01-18 00:00:00 2022-01-18 00:00:00 (TEL) STLMLC STLMLC [id number] [facility] 2022-01-16 00:00:00 2022-01-16 00:00:00 OFFICE VISIT EST PT LEVEL 3 STLMLC STLMLC [id number] [facility] 2021-12-16 00:00:00 2021-12-16 00:00:00 (TEL) STLMLC STLMLC [id number] [facility] 2021-12-13 00:00:00 2021-12-13 00:00:00 OL DIG E/M SVC 11-20 MIN STLMLC STLMLC [id number] [facility] 2021-12-12 00:00:00 2021-12-12 00:00:00 (TEL) STLMLC STLMLC [id number] [facility] 2021-11-23 00:00:00 2021-11-23 00:00:00 (TEL) STLMLC STLMLC [id number] [facility] 2021-11-16 00:00:00 2021-11-16 00:00:00 OL DIG E/M SVC 11-20 MIN STLMLC STLMLC [id number] [facility] 2021-10-31 09:57:00 2021-10-31 09:57:00 [place] [facility] [place] [id number] 2021-10-18 12:00:00 2021-10-18 12:00:00 Outpatient DMG [facility] [id number] [facility] 2021-09-09 00:00:00 2021-09-09 00:00:00 OL DIG E/M SVC 21+ MIN STLMLC STLMLC [id number] [facility] 2021-08-29 11:02:00 2021-08-29 11:02:00 [place] [facility] [place] [id number] [facility] 2021-08-18 00:00:00 2021-08-18 00:00:00 OFFICE VISIT EST PT LEVEL 3 STLMLC STLMLC [id number] [facility] 2021-08-18 00:00:00 2021-08-18 00:00:00 (TEL) STLMLC STLMLC [id number] [facility] 2021-08-18 00:00:00 2021-08-18 00:00:00 (TEL) STLMLC STLMLC [id number] [facility] 2021-08-15 00:00:00 2021-08-15 00:00:00 (TEL) STLMLC STLMLC [id number] [facility] 2021-07-08 00:00:00 2021-07-08 00:00:00 (TEL) STLMLC STLMLC [id number] [facility] 2021-06-21 00:00:00 2021-06-21 00:00:00 Outpatient STLMLC STLMLC [id number] [facility] 2021-06-15 09:22:29 2021-06-15 09:49:00 [facility] 1.2.840.114 350.1.13.10 4.2.7.2.686 [id number] [facility] 2021-06-15 09:00:00 2021-06-15 09:00:00 Outpatient SHILPA [facility]LSON [facility] [id number] [facility] 2021-06-10 00:00:00 2021-06-10 00:00:00 Outpatient STLMLC STLMLC [id number] [facility] 2021-06-10 00:00:00 2021-06-10 00:00:00 Outpatient STLMLC STLMLC [id number] [facility] 2021-05-11 08:42:39 2021-05-11 23:59:00 Hospital Encounter Shilpa Bourgeois [facility] 1.2.840.114 350.1.13.10 4.2.7.2.686 [id number] [facility] 2021-05-11 00:00:00 2021-05-11 00:00:00 Outpatient SHILPA CARLSON [facility] [id number] [facility] 2021-05-11 00:00:00 2021-05-11 00:00:00 Orders Only Doctor Unassigned, [place] [id number] 350.1.13.10 4.2.7.2.686 [id number] [facility] 2021-03-23 00:00:00 2021-03-23 00:00:00 Outpatient STLMLC STLMLC [id number] [facility] 2021-01-26 00:00:00 2021-01-26 00:00:00 Outpatient STLMLC STLMLC [id number] [facility] 2021-01-24 00:00:00 2021-01-24 00:00:00 Orders Only Doctor Unassigned, [place] [id number] 350.1.13.10 4.2.7.2.686 [id number] [facility] 2021-01-19 00:00:2021-01-19 00:00:00 Orders Only Doctor Unassigned, [place] [facility] 1.2.840.114 350.1.13.10 4.2.7.2.686 [id number] [facility] 2021-01-13 08:35:32 2021-01-13 09:20:50 Office Visit WolfShilpa cartwright [facility] 1.2840.114 350.1.13.10 4.2.7.2.686 [id number] 134 [id number] [facility] 2021-01-13 09:00:00 2021-01-13 09:00:00 Outpatient R [facility] [id number] [facility] 2021-01-13 00:00:00 2021-01-13 00:00:00 Orders Only Doctor Unassigned, [place] [facility] 1.2.840.114 350.1.13.10 4.2.7.2.686 [id number] [id number] [facility] 2021-01-13 00:00:00 2021-01-13 00:00:00 Letter (Out) Doctor Unassigned, [place] [facility] 1.2.840.114 350.1.13.10 4.2.7.2.686 [id number] [facility] 2021-01-13 00:00:00 2021-01-13 00:00:00 Letter (Out) Doctor Unassigned, [place] [facility] 1.2.840.114 350.1.13.10 4.2.7.2.686 [id number] [facility] 2021-01-04 00:00:00 2021-01-04 00:00:00 Case Management ChristelleChiocy [facility] 1.2840.114 350.1.13.10 4.2.7.2.686 [id number] 134 [id number] [facility] 2021-01-03 00:00:00 2021-01-03 00:00:00 Outpatient STLMLC STLMLC [id number] [facility] 2020-12-21 00:00:00 2020-12-21 00:00:00 Outpatient STLMLC STLMLC [id number] [facility] 2020-11-16 00:00:00 2020-11-16 00:00:00 Outpatient STLMLC STLMLC [id number] [facility] 2020-11-10 00:00:00 2020-11-10 00:00:00 Outpatient STLMLC STLMLC [id number] [facility] 2020-10-12 00:00:00 2020-10-12 00:00:00 Outpatient STLMLC STLMLC [id number] [facility] 2020-10-11 00:00:00 2020-10-11 00:00:00 Outpatient STLMLC STLMLC [id number] [facility] 2020-09-30 00:00:00 2020-09-30 00:00:00 Outpatient STLMLC STLMLC [id number] [facility] 2020-09-29 00:00:00 2020-09-29 00:00:00 Outpatient STLMLC STLMLC [id number] [facility] 2020-09-14 00:00:00 2020-09-14 00:00:00 Outpatient STLMLC STLMLC [id number] [facility] 2020-09-14 00:00:00 2020-09-14 00:00:00 Outpatient STLMLC STLMLC [id number] [facility] 2020-09-14 00:00:00 2020-09-14 00:00:00 Outpatient STLMLC STLMLC [id number] [facility] 2020-09-13 00:00:00 2020-09-13 00:00:00 Outpatient STLMLC STLMLC [id number] [facility] 2020-06-24 09:50:00 2020-06-24 09:50:00 Outpatient [facility] [id number] [facility] 2020-06-09 16:32:00 2020-06-09 16:32:[address] [facility] [id number] [facility] 2020-05-28 11:43:00 2020-05-28 11:43:[address] [facility] [id number] [facility] 2020-04-13 09:20:00 2020-04-13 09:20:[address] [facility] [id number] [facility] 2020-03-10 16:01:00 2020-03-10 16:01:[address] [facility] [id number] [facility] 2020-01-25 13:49:00 2020-01-25 13:49:[address] [facility] [id number] [facility] 2020-01-02 09:45:00 2020-01-02 09:45:[address] [facility] [id number] [facility] 2019-12-02 09:15:00 2019-12-02 09:15:[address] [facility] [id number] [facility] 2019-11-17 14:50:00 2019-11-17 14:50:[address] [facility] [id number] [facility] 2019-09-26 10:00:00 2019-09-26 10:00:[address] [facility] [id number] [facility] 2019-07-22 11:05:00 2019-07-22 11:05:[address] [facility] [id number] [facility] 2019-06-30 10:20:00 2019-06-30 10:20:[address] [facility] [id number] [facility] 2019-04-17 20:26:00 2019-04-17 20:26:[address] [facility] [id number] [facility] 2019-04-16 15:58:00 2019-04-16 15:58:[address] [facility] [id number] [facility] 2019-03-03 13:58:00 2019-03-03 13:58:[address] [facility] [id number] [facility] 2019-01-17 15:47:00 2019-01-17 15:47:[address] [facility] [id number] [facility] 2019-01-17 11:15:00 2019-01-17 11:15:[address] [facility] [id number] [facility] 2019-01-10 01:41:00 2019-01-10 01:41:[address] [facility] [id number] [facility] 2019-01-08 10:30:00 2019-01-08 10:30:[address] [facility] [id number] [facility] 2018-12-26 14:36:00 2018-12-26 14:36:[address] [facility] [id number] [facility] 2018-12-25 11:15:00 2018-12-25 11:15:[address] [facility] [id number] [facility] 2018-11-12 09:15:00 2018-11-12 09:15:[address] [facility] [id number] [facility] 2018-10-09 08:00:00 2018-10-09 08:00:[address] [facility] [id number] [facility] 2018-07-30 15:53:00 2018-07-30 15:53:[address] [facility] [id number] [facility] 2018-07-29 09:10:00 2018-07-29 09:10:[address] [facility] [id number] [facility] 2018-05-28 11:00:00 2018-05-28 11:00:[address] [facility] [id number] [facility] 2018-04-10 08:24:00 2018-04-10 08:24:[address] [facility] [id number] [facility] 2018-04-02 09:00:00 2018-04-02 09:00:[address] [facility] [id number] [facility] 2018-04-01 14:33:00 2018-04-01 14:33:[address] [facility] [id number] [facility] 2018-03-21 08:55:00 2018-03-21 08:55:[address] [facility] [id number] [facility] 2018-03-19 09:30:00 2018-03-19 09:30:[address] [facility] [id number] [facility] Results Test Description Test Time Test Comments Results Result Co mments Source CBC W/AUTO [id number] 00:00:00* Test Item Value Reference Range Interpretation Comme nts NUCLEATED RBCS (test code = 87571-9) 0.0 /100 WBC'S See_Comment [Automated messa ge] The system which generated this result transmitted reference range: 0.0 /100 WBC'S. The reference range was not used to interpret this result as normal/abnormal. ABSOLUTE EOSINOPHILS (test code = 86018-9) 0.25 K/UL See_Comment [Automated messa ge] The system which generated this result transmitted reference range: 0.00-0.50 K/UL. The reference range was not used to interpret this result as normal/abnormal. ABSOLUTE LYMPHOCYTES (test code = 35674-6) 2.14 K/UL See_Comment [Automated messa ge] The system which generated this result transmitted reference range: 1.00-4.00 K/UL. The reference range was not used to interpret this result as normal/abnormal. ABSOLUTE MONOCYTES (test code = 19210-1) 0.61 K/UL See_Comment [Automated messa ge] The system which generated this result transmitted reference range: 0.20-1.00 K/UL. The reference range was not used to interpret this result as normal/abnormal. ABSOLUTE NEUTROPHILS (test code = 55837-3) 5.26 K/UL See_Comment [Automated messa ge] The system which generated this result transmitted reference range: 1.50-7.50 K/UL. The reference range was not used to interpret this result as normal/abnormal. BASOPHILS (test code = 62063-1) 0.6 % EOSINOPHILS (test code = 60400-0) 3.0 % HEMATOCRIT (test code = 13284-9) 30.4 % See_Comment L [Automated messa ge] [...] result as normal/abnormal. LYMPHOCYTES (test code = 87396-2) 25.7 % MCH (test code = 86613-0) 30.6 PG See_Comment [Automated messa ge] The system which generated this result transmitted reference range: 25.0-33.0 PG. The reference range was not used to interpret this result as normal/abnormal. MCHC (test code = 29978-8) 33.2 G/DL See_Comment [Automated messa ge] The system which generated this result transmitted reference range: 31.0-36.0 G/DL. The reference range was not used to interpret this result as normal/abnormal. MCV (test code = 96753-3) 92.1 fL See_Comment [Automated messa ge] The system which generated this result transmitted reference range: 80.0-99.0 fL. The reference range was not used to interpret this result as normal/abnormal. MONOCYTES (test code = 77530-4) 7.3 % NEUTROPHILS (test code = 19379-5) 63.0 % PLATELET COUNT (test code = 63288-1) 221 K/UL See_Comment [Automated messa ge] The system which generated this result transmitted reference range: 130-400 K/UL. The reference range was not used to interpret this result as normal/abnormal. RBC (test code = 59363-1) 3.30 M/UL See_Comment L [Automated messa ge] The system which generated this result transmitted reference range: 3.80-5.40 M/UL. The reference range was not used to interpret this result as normal/abnormal. RDW (test code = 13301-2) 14.1 % See_Comment [Automated messa ge] The system which generated this result transmitted reference range: 11.5-15.0 %. The reference range was not used to interpret this result as normal/abnormal. WBC (test code = 43338-1) 8.3 K/UL See_Comment [Automated messa ge] The system which generated this result transmitted reference range: 3.5-11.0 K/UL. The reference range was not used to interpret this result as normal/abnormal. CULTURE, [id number] 00:00:00* Test Item Value Reference Range Interpretation Comme nts CULTURE, URINE (test code = 630-4) SPECIMEN NUMBER: [id number] CBC W/AUTO [id number] 00:00:00* Test Item Value Reference Range Interpretation Comme nts NUCLEATED RBCS (test code = 65666-8) 0.0 /100 WBC'S See_Comment [Automated messa ge] The system which generated this result transmitted reference range: 0.0 /100 WBC'S. The reference range was not used to interpret this result as normal/abnormal. ABSOLUTE EOSINOPHILS (test code = 33608-3) 0.27 K/UL See_Comment [Automated messa ge] The system which generated this result transmitted reference range: 0.00-0.50 K/UL. The reference range was not used to interpret this result as normal/abnormal. ABSOLUTE LYMPHOCYTES (test code = 83339-7) 1.99 K/UL See_Comment [Automated messa ge] The system which generated this result transmitted reference range: 1.00-4.00 K/UL. The reference range was not used to interpret this result as normal/abnormal. ABSOLUTE MONOCYTES (test code = 12615-5) 0.75 K/UL See_Comment [Automated messa ge] The system which generated this result transmitted reference range: 0.20-1.00 K/UL. The reference range was not used to interpret this result as normal/abnormal. ABSOLUTE NEUTROPHILS (test code = 44949-6) 6.41 K/UL See_Comment [Automated messa ge] The system which generated this result transmitted reference range: 1.50-7.50 K/UL. The reference range was not used to interpret this result as normal/abnormal. BASOPHILS (test code = 23351-9) 0.5 % EOSINOPHILS (test code = 11062-2) 2.8 % HEMATOCRIT (test code = 00839-7) 33.8 % See_Comment L [Automated messa ge] [...] result as normal/abnormal. LYMPHOCYTES (test code = 33938-3) 21.0 % MCH (test code = 09539-4) 29.7 PG See_Comment [Automated messa ge] The system which generated this result transmitted reference range: 25.0-33.0 PG. The reference range was not used to interpret this result as normal/abnormal. MCHC (test code = 34839-9) 32.0 G/DL See_Comment [Automated messa ge] The system which generated this result transmitted reference range: 31.0-36.0 G/DL. The reference range was not used to interpret this result as normal/abnormal. MCV (test code = 41863-3) 92.9 fL See_Comment [Automated messa ge] The system which generated this result transmitted reference range: 80.0-99.0 fL. The reference range was not used to interpret this result as normal/abnormal. MONOCYTES (test code = 09599-8) 7.9 % NEUTROPHILS (test code = 92006-1) 67.6 % PLATELET COUNT (test code = 22254-9) 231 K/UL See_Comment [Automated messa ge] The system which generated this result transmitted reference range: 130-400 K/UL. The reference range was not used to interpret this result as normal/abnormal. RBC (test code = 36855-0) 3.64 M/UL See_Comment L [Automated messa ge] The system which generated this result transmitted reference range: 3.80-5.40 M/UL. The reference range was not used to interpret this result as normal/abnormal. RDW (test code = 97370-3) 13.7 % See_Comment [Automated messa ge] The system which generated this result transmitted reference range: 11.5-15.0 %. The reference range was not used to interpret this result as normal/abnormal. WBC (test code = 77053-0) 9.5 K/UL See_Comment [Automated messa ge] The system which generated this result transmitted reference range: 3.5-11.0 K/UL. The reference range was not used to interpret this result as normal/abnormal. CBC W/AUTO [id number] 00:00:00* Test Item Value Reference Range Interpretation Comme nts NUCLEATED RBCS (test code = 57035-7) 0.0 /100 WBC'S See_Comment [Automated messa ge] The system which generated this result transmitted reference range: 0.0 /100 WBC'S. The reference range was not used to interpret this result as normal/abnormal. ABSOLUTE EOSINOPHILS (test code = 80789-9) 0.32 K/UL See_Comment [Automated messa ge] The system which generated this result transmitted reference range: 0.00-0.50 K/UL. The reference range was not used to interpret this result as normal/abnormal. ABSOLUTE LYMPHOCYTES (test code = 27008-1) 2.60 K/UL See_Comment [Automated messa ge] The system which generated this result transmitted reference range: 1.00-4.00 K/UL. The reference range was not used to interpret this result as normal/abnormal. ABSOLUTE MONOCYTES (test code = 52872-9) 0.60 K/UL See_Comment [Automated messa ge] The system which generated this result transmitted reference range: 0.20-1.00 K/UL. The reference range was not used to interpret this result as normal/abnormal. ABSOLUTE NEUTROPHILS (test code = 58428-0) 6.76 K/UL See_Comment [Automated messa ge] The system which generated this result transmitted reference range: 1.50-7.50 K/UL. The reference range was not used to interpret this result as normal/abnormal. BASOPHILS (test code = 63771-6) 0.9 % EOSINOPHILS (test code = 10368-7) 3.1 % HEMATOCRIT (test code = 05279-9) 32.8 % See_Comment L [Automated messa ge] [...] result as normal/abnormal. LYMPHOCYTES (test code = 43119-5) 25.0 % MCH (test code = 56681-8) 29.6 PG See_Comment [Automated messa ge] The system which generated this result transmitted reference range: 25.0-33.0 PG. The reference range was not used to interpret this result as normal/abnormal. MCHC (test code = 12240-9) 32.6 G/DL See_Comment [Automated messa ge] The system which generated this result transmitted reference range: 31.0-36.0 G/DL. The reference range was not used to interpret this result as normal/abnormal. MCV (test code = 39385-5) 90.9 fL See_Comment [Automated messa ge] The system which generated this result transmitted reference range: 80.0-99.0 fL. The reference range was not used to interpret this result as normal/abnormal. MONOCYTES (test code = 24286-0) 5.8 % NEUTROPHILS (test code = 87831-2) 64.9 % PLATELET COUNT (test code = 66323-7) 208 K/UL See_Comment [Automated messa ge] The system which generated this result transmitted reference range: 130-400 K/UL. The reference range was not used to interpret this result as normal/abnormal. RBC (test code = 55920-7) 3.61 M/UL See_Comment L [Automated messa ge] The system which generated this result transmitted reference range: 3.80-5.40 M/UL. The reference range was not used to interpret this result as normal/abnormal. RDW (test code = 28148-1) 13.0 % See_Comment [Automated messa ge] The system which generated this result transmitted reference range: 11.5-15.0 %. The reference range was not used to interpret this result as normal/abnormal. WBC (test code = 36620-9) 10.4 K/UL See_Comment [Automated messa ge] The system which generated this result transmitted reference range: 3.5-11.0 K/UL. The reference range was not used to interpret this result as normal/abnormal. US PELVIS COMPLETE WITH [id number] 23:04:561. ?Simple cyst in the left ovary [...] colorDoppler evaluation of the pelvis was performed. Event Manager images wereobtained for the record. COMPARISON: None [...] colorDoppler evaluation of the pelvis was performed. Event Manager images wereobtained for the record. COMPARISON: NoneFINDINGS:STATEMENT: [...] reviewed this study and agree with theabove report.[facility] S[facility] KAILASH BILAT W/CAD3D SCR KAILASH BILAT W/CADSARS-COV 2 AntigenSARS-COV 2 Antigen Notes Date/Time Note Provider Source 2024-09-23 07:30:00 [facility] [place] Did member answer phone?: Yes Is the member available to discuss their ER stay in a quick 10 min phone call ?: YesWhat prompted you to go to the ED: Edema in Lower Extremities .Do you feel you were able to get the care you needed?: YesDo you have any questions regarding your discharge instructions?: NoDischarged with new medications?: NoIs there anything you need help coordinating?: NoDo you have a follow-up appointment with your PCP scheduled (or have you seen the PCP since your most recent discharge)?: Juan we assist at all in scheduling that appointment?: No [facility]il[facility] 2024-07-30 14:00:00 ASSESSMENT SUMMARY SERGIO RIVAS is [...] verbalized understanding to all. Members Preferred Language Albanian Patient Currently Located in their home state of [place], YES DIAGNOSIS DLONDJTE87.4 - Major depressive disorder, single episode, in partial erbjntgjqO79.01 - Morbid (severe) obesity due to excess ragyhqokM19.32 - Chronic kidney disease, stage 3bZ68.38 - Body mass index [BMI] 38.0-38.9, bfcybE08.5 - Hyperlipidemia, apmlyvixhtwW90.9 - Hypertensive chronic kidney disease with stage 1 through stage 4 chronic kidney disease, or unspecified chronic kidney egucsmqG20.909 - Unspecified asthma, qpnvwcmgwwvzlO42.9 - Gastro-esophageal reflux disease without zhipiilqkpkN08.90 - Unspecified osteoarthritis, unspecified site PATIENT INTAKE [...] self or others. - Followed by PCP.DISCUSSED: Care Management Assistant the patient on the role of continued [...] patient use home health, physical therapy or fdc services?: No New orders, referrals, or any [...] Chronic kidney disease, stage 3b Notes for [id number]: - CKD stage 3b. Most recent eGFR: 38 on 06/06/2024. - Taking medication: Olmesartan. Advised tight BP control <140/90 . - Recommend avoiding NSAIDS / PPIs. - Followed with PCP and executive coach appointment.ACTION: Confirm that the patient is on an KHALIDA inhibitor or ARBACTION: Discuss with the patient that referral to a executive coach is needed if the patient progresses to [...] More than 20 minutes Germaine Laboy [facility]ly [facility], 1928–1983 Medical
--- NOTE | 2025-01-22 19:29 | RAD REPORT ---
EXAM: Chest Single View HISTORY: 64 years Female SOB COMPARISON: 09/16/24 FINDINGS: LUNGS/PLEURA: The lungs are clear. No pleural effusions or pneumothorax. No pulmonary edema. CARDIAC/MEDIASTINUM: The cardiac silhouette is within normal limits. UPPER ABDOMEN: No significant abnormality. BONES: No acute abnormality. LINES/TUBES/OTHER: N/A IMPRESSION: No evidence of acute cardiopulmonary disease.
[2025-01-22] MEDS ORDERED: NA CHLORIDE 0.9% 500 ML ONE (19:42)
[2025-01-22] MEDS ORDERED: ASPIRIN 81 MG CHEWABLE TABLET ONE (19:43)
[2025-01-22 20:02] LABS: Absolute Basophils 0.2 K/uL (0-0.5); Absolute Eosinophils 0.3 K/uL (0-0.5); Absolute Lymphocytes (CBC) 2.7 K/uL (0.7-4.9); Absolute Monocytes 0.9 K/uL (0.1-1.3); Absolute Neutrophil 9.6 K/uL (1.8-8.0); Basophils % 1.2 % (0-1.3); Eosinophils % 2.1 % (0-4.4); Hematocrit 35.3 % (36.0-45.0); Hemoglobin 11.6 g/dL (12.0-15.0); Lymphocytes % 19.9 % (15.3-44.8); MCH 29.9 pg (27.0-35.0); MCV 90.5 fL (80-100); MPV 10.6 fL (7.6-11.3); Monocytes % 6.8 % (3.3-12.3); Platelets 286 thou/uL (152-406); Red Cell Distribution Width 16.1 % (12.1-15.2)
[2025-01-22 20:03] LABS: PT Prothrombin Time 13.1 SECONDS (10-13.0); Protime INR 1.16
[2025-01-22 20:10] LABS: Specific Gravity 1.013 (1.005-1.030); Sqamous Epithelial <5 /HPF (None Seen); Urine Bacteria <20 /HPF (<20); Urine Bilirubin NEGATIVE (Negative); Urine Blood Negative (Negative); Urine Clarity Turbid (Clear); Urine Color Light-Yellow (Yellow); Urine Crystals Unidentified Few /HPF (None Seen); Urine Culture Reflex Order NOT NEEDED; Urine Glucose 3+ (Negative); Urine Ketones NEGATIVE (Negative); Urine Micro Reflex YN NO BILL MICROSCOPIC; Urine Nitrite NEGATIVE (Negative); Urine Protein 1+ (Negative); Urine RBC <5 /HPF (None Seen); Urine Urobilinogen 1+ (Normal); Urine WBC <5 /HPF (<5); Urine Yeast (Budding) Trace /HPF (None Seen); Urine pH 7.5 (5.0-7.0)
[2025-01-22 20:13] LABS: Influenza A Ag Negative; Influenza B Ag Negative; SARS-CoV-2 Antigen Rapid Res Negative (Negative)
[2025-01-22 20:14] LABS: Albumin 3.6 g/dL (3.4-5.0); Albumin/Globulin Ratio 0.8 (1.1-1.8); Anion Gap 7.5 mEq/L (5.0-15.0); Bilirubin Direct 0.2 mg/dL (0-0.2); Bilirubin Indirect, Calculated 0.4 mg/dL (0.2-0.8); Bilirubin Total 0.6 mg/dL (0.2-1.0); Globulin 4.6 g/dL (2.3-3.5); Magnesium 2.1 mg/dL (1.6-2.4); Potassium 3.5 mEq/L (3.5-5.1); Protein, Total 8.2 g/dL (6.4-8.2); Troponin High Sensitivity 26.1 pg/mL (<58.9)
--- NOTE | 2025-01-22 20:50 | RAD REPORT ---
EXAMINATION: Head Brain Wo Cont CLINICAL INDICATION: Female, 64 years old.HEADACHE TECHNIQUE: Axial CT images from the skull base to the vertex without intravenous contrast. Coronal an d sagittal reformatted images were created from the data set. One or more of the following dose reduction techniques were used: Automated exposure control, adjustment of the mA and/or kV according to patient size, and/or iterative reconstruction. Unless otherwise specified, incidental findings do not require dedicated imaging follow-up. [id number]. COMPARISON: No prior exam. FINDINGS: INTRACRANIAL: No acute intracranial hemorrhage. No hydrocephalus. No mass effect or midline shift. Ec centric hypoattenuation at the left posterior frontal and parietal deep white matter concerning for an age indeterminant infarct.Background of moderate chronic small vessel ischemic changes. VASCULATURE: No visualized abnormalities in the arteries or dural venous sinuses. SCALP/SKULL: No calvarial fracture identified. No acute soft tissue abnormality. SINUSES: Mild circumferential thickening in the left maxillary sinus. No significant mastoid fluid. IMPRESSION: Deep white matter hypoattenuation in the left posterior frontal and parietal lobe probably representi ng a remote infarct however MRI could better evaluate.
[2025-01-22] MEDS ORDERED: lisinopriL 20 MG TAB ONE (22:33)
[2025-01-22] MEDS ORDERED: MORPHINE 4 MG/ML SYR ONE (23:13)
--- NOTE | 2025-01-22 23:28 | EDPHYS ---
Physician Documentation [facility] Name: Sergio Otero Age: 64 yrs Sex: Female : 1960 Arrival Date: 01/22/2025 Time: 18:50 Bed 19 Private MD: ED Physician David Yoo HPI: 01/22 19:15 This 64 yrs old Black Female presents to ER via Wheelchair with complaints of Chest cp Pain, Shortness Of Breath, High Blood Pressure. 19:15 The patient has elevated blood pressure and discovered this at home. Onset: The cp symptoms/episode began/occurred 2 day(s) ago. 19:15 Associated signs and symptoms: Pertinent positives: chest pain, shortness of breath, cp Pertinent negatives: headache, lightheadedness, vomiting, weakness. Severity of symptoms: in the emergency department the blood pressure is unchanged, despite home interventions. Historical: - Allergies: 19:02 Adhesives; ll1 - PMHx: 19:02 Gout; Hyperlipidemia; Hypertension; kidney function is low; Sickle Cell Trait; ll1 - PSHx: 19:02 adrenal gland removed; section; foot; Shoulder (Gout); ll1 - Immunization history:: Adult Immunizations up to date. - Infectious Disease History:: Denies. - Social history:: Smoking status: Patient denies any tobacco usage or history of. ROS: 19:20 Constitutional: Negative for body aches, chills, fever, poor PO intake, cp 19:20 Eyes: Negative for injury, pain, redness, and discharge, cp 19:20 Cardiovascular: Positive for chest pain, Negative for edema, palpitations, 19:20 Respiratory: Positive for shortness of breath, at rest. 19:20 Abdomen/GI: Negative for abdominal pain, vomiting, diarrhea, constipation, 19:20 Neuro: Negative for altered mental status, dizziness, headache, syncope, near syncope, cp weakness, 19:20 All other systems are negative, cp Exam: 19:25 Constitutional: The patient appears in no acute distress, alert, awake, cp non-diaphoretic, non-toxic, well developed, well nourished, uncomfortable, 19:25 Head/Face: Normocephalic, atraumatic. cp 19:25 Eyes: Periorbital structures: appear normal, Conjunctiva: normal, no exudate, no injection, Sclera: no appreciated abnormality, Lids and lashes: appear normal, bilaterally, 19:25 ENT: External ear(s): are unremarkable, Nose: is normal, Mouth: Lips: moist, Oral mucosa: moist, Posterior pharynx: Airway: no evidence of obstruction, patent, 19:25 Neck: ROM/movement: is normal, is supple, without pain, no range of motions limitations, 19:25 Chest/axilla: Inspection: normal, 19:25 Cardiovascular: Rate: normal, Rhythm: regular, 19:25 Respiratory: the patient does not display signs of respiratory distress, Respirations: labored breathing, that is mild, Breath sounds: decreased breath sounds, that are mild, throughout, stridor, is not appreciated, wheezing: is not appreciated, 19:25 Abdomen/GI: Inspection: abdomen appears normal, Palpation: abdomen is soft and non-tender, in all quadrants, 19:25 Back: pain, is absent, ROM is normal, cp 19:25 Neuro: Orientation: to person, place \T\ time. Mentation: is normal, Motor: moves all fours, no focal deficits, Sensation: no obvious gross deficits, 19:40 ECG was reviewed by the Attending Physician. cp Vital Signs: 19:02 Pulse 88; Resp 18; Temp 98.6; Pulse Ox 99% ; Weight 108.86 kg; Height 5 ft. 6 in. ; ll1 Pain 6/10; 19:39 BP 172 / 95; Pulse 78; Resp 18; Pulse Ox 99% ; cp4 20:59 BP 155 / 90; Pulse 75; Resp 18; Pulse Ox 99% ; cp4 22:02 BP 165 / 87; Pulse 71; Resp 18; Pulse Ox 99% ; cp4 19:02 Body Mass Index 38.74 (108.86 kg, 167.64 cm) ll1 19:02 Pain Scale: Adult ll1 MDM: 23:28 Medical Screening Exam initiated cp 23:30 Data reviewed: vital signs, nurses notes, lab test result(s), EKG, radiologic studies, cp plain films, and as a result, I will admit patient. 23:30 Differential diagnosis: hypertensive crisis, Malignant HTN, CVA, intracerebral cp hemorrhage, acute TN, pulmonary embolism. Management of patient was discussed with the following: Hospitalist: DR Poole will admit after discussion. I considered the following discharge prescriptions or medication management in the emergency department Medications were administered in the Emergency Department. See MAR. Independent interpretation of the following test(s) in the Emergency Department EKG: See my EKG interpretation above. Care significantly affected by the following chronic conditions: Hypertension, Obesity. Counseling: I had a detailed discussion with the patient and/or guardian regarding the historical points, exam findings, and any diagnostic results supporting the discharge/admit diagnosis, lab results, radiology results. 01/22 19:13 Order name: Urinalysis W/Microscopic; Complete Time: 20:18 cp 01/22 19:13 Order name: Basic Metabolic Panel; Complete Time: 20:18 cp 01/22 20:18 Interpretation: Normal except: BUN 21; CRE 1.68; GFR 33. cp 01/22 19:13 Order name: CBC with Diff; Complete Time: 20:18 cp 01/22 19:13 Order name: LFT's; Complete Time: 20:18 cp 01/22 19:13 Order name: Magnesium; Complete Time: 20:18 cp 01/22 19:13 Order name: NT PRO-BNP; Complete Time: 20:18 cp 01/22 19:13 Order name: PT-INR; Complete Time: 20:18 cp 01/22 19:13 Order name: Troponin HS; Complete Time: 20:18 cp 01/22 19:13 Order name: COVID-19 Ag + Flu A+B Ag; Complete Time: 20:18 cp 01/22 22:19 Order name: Troponin High Sensitivity; Complete Time: 23:05 cp 01/22 23:35 Order name: D-Dimer; Complete Time: 07:41 EDMS 01/23 00:47 Order name: Urinalysis w/ reflexes EDMS 01/23 00:47 Order name: CBC with Automated Diff EDMS 01/23 00:47 Order name: CBC with Automated Diff EDMS 01/23 00:47 Order name: Comprehensive Metabolic Panel EDMS 01/23 00:47 Order name: Comprehensive Metabolic Panel EDMS 01/23 00:47 Order name: Troponin High Sensitivity EDMS 01/23 00:47 Order name: Troponin High Sensitivity; Complete Time: 07:41 EDMS 01/23 00:47 Order name: Troponin High Sensitivity; Complete Time: 07:41 EDMS 01/23 00:47 Order name: Troponin High Sensitivity EDMS 01/22 19:13 Order name: XRAY Chest (1 view); Complete Time: 20:18 cp 01/22 19:13 Order name: CT Head Brain wo Cont; Complete Time: 20:51 cp 01/22 23:35 Order name: Chest For Pe Angio; Complete Time: 07:41 EDWY 01/22 19:13 Order name: EKG; Complete Time: 19:14 cp 01/22 19:13 Order name: Cardiac monitoring; Complete Time: 19:19 cp 01/22 19:13 Order name: EKG - Nurse/Tech; Complete Time: 19:38 cp 01/22 19:13 Order name: IV Saline Lock; Complete Time: 19:38 cp 01/22 19:13 Order name: Labs collected and sent; Complete Time: 19:38 cp 01/22 19:13 Order name: O2 Per Protocol; Complete Time: 19:19 cp 01/22 19:13 Order name: O2 Sat Monitoring; Complete Time: 19:19 cp EC:40 Rate is 77 beats/min. Rhythm is regular. MN interval is normal. QRS interval is normal. cp QT interval is normal. T waves are Inverted in leads III, aVF. Interpreted by me. Reviewed by me. Administered Medications: 19:41 Not Given (Physician Discretion): ns 0.9% 500 ml 500 ml IV at 1 bolus once; to be given cp as a bolus over 60 minutes 19:42 Not Given (Physician Discretion): [id number] mg IVP once cp 19:47 Drug: NS 0.9% IV 500 ml 500 ml IV at 1 bolus once; to be given as a bolus over 60 cp4 minutes Volume: 500 ml; Route: IV; Rate: 1 bolus; Site: right antecubital; 23:22 Follow up: IV Status: Completed infusion cp4 19:47 Drug: Aspirin PO Chewable Tablet 162 mg PO once Route: PO; cp4 23:22 Follow up: Response: No adverse reaction cp4 22:35 Drug: Lisinopril PO 20 mg PO once Route: PO; cp4 23:22 Follow up: Response: No adverse reaction cp4 23:07 CANCELLED (Physician Discretion): morphineor iv 2 mg IVP once over 4 mins cp 23:07 CANCELLED (Physician Discretion): morphineor iv 2 mg IVP once over 4 mins cp 23:21 Drug: morphine IVP or IV 4 mg IVP once over 4 mins Route: IVP; Infused Over: 4 mins; cp4 Site: right antecubital; 01/23 00:10 Follow up: Response: No adverse reaction; Pain is decreased rg5 Disposition Summary: 01/22/25 23:28 Hospitalization Ordered Notes: Hospitalization Status: Observation cp Provider: Eh Poole cp Condition: Stable cp Problem: new cp Symptoms: have improved cp Bed/Room Type: Standard cp Location: Telemetry/MedSurg (observation)(01/23/25 06:30) Room Assignment: 405(01/23/25 06:30) Diagnosis - Chest pain, unspecified cp - Hypertensive heart and chronic kidney disease without heart failure, with stage 1 cp through stage 4 chronic kidney disease, or unspecified chronic kidney disease Forms: - Medication Reconciliation Form cp - SBAR form cp - Leadership Thank You Letter cp Signatures: Dispatcher [employer] EDMS Tashia Bowen RN RN kl Page, Corey, PA PA cp Feroz Bowen RN RN ll1 Kayla Arias MD MD sp3 Eugenie Powell RN RN vc1 Anahi Hill cp4 Abhishek Herrera RN rg5 Corrections: (The following items were deleted from the chart) 01/22 19:14 19:14 Urinalysis W/Microscopic+U.LAB.BRZ ordered. EDMS EDMS 19:14 19:14 BASIC METABOLIC PANEL+C.LAB.BRZ ordered. EDMS EDMS 19:14 19:14 CBC+H.LAB.BRZ ordered. EDMS EDMS 19:14 19:14 HEPATIC FUNCTION+C.LAB.BRZ ordered. EDMS EDMS 19:14 19:14 MAGNESIUM+C.LAB.BRZ ordered. EDMS EDMS 19:14 19:14 PROBNP+C.LAB.BRZ ordered. EDMS EDMS 19:14 19:14 PROTIME (+INR)+COAG.LAB.BRZ ordered. EDMS EDMS 19:14 19:14 Troponin High Sensitivity+C.LAB.BRZ ordered. EDMS EDMS 19:14 19:14 COVID-19 Ag + Flu A+B Ag+I.LAB.BRZ ordered. EDMS EDMS 23:07 23:07 morphine IVP or IV 2 mg IVP once over 4 mins ordered. cp cp 23:07 23:07 morphine IVP or IV 2 mg IVP once over 4 mins ordered. cp cp 01/23 00:52 04 23:28 Telemetry/MedSurg (observation) cp vc1 01/23 00:52 04 23:28 cp vc1 01/23 01:32 00:52 Telemetry/MedSurg (observation) vc1 vc1 01:32 00:52 212 vc1 vc1 06:30 01:32 [facility] ER HOLD vc1 kl 06:30 01:32 ERHOLD- vc1 kl
--- NOTE | 2025-01-22 23:28 | ER ---
Nurse's Notes [facility] Name: Sergio Otero Age: 64 yrs Sex: Female : 1960 Arrival Date: 01/22/2025 Time: 18:50 Bed 19 Private MD: Diagnosis: Chest pain, unspecified;Hypertensive heart and chronic kidney disease without heart failure, with stage 1 through stage 4 chronic kidney disease, or unspecified chronic kidney disease Presentation: 01/22 19:02 Chief complaint: Patient states: CP, SOB, and high BP for 2 days. Coronavirus screen: ll1 Client denies travel out of the [place] in the last 14 days. At this time, the client does not indicate any symptoms associated with coronavirus-19. Ebola Screen: Patient denies travel to an Ebola-affected area in the 21 days before illness onset. Initial Sepsis Screen: Does the patient meet any 2 criteria? No. Patient's initial sepsis screen is negative. Does the patient have a suspected source of infection? No. Patient's initial sepsis screen is negative. Risk Assessment: Do you want to hurt yourself or someone else? Patient reports no desire to harm self or others. Onset of symptoms was January 21, 2025. 19:02 Method Of Arrival: Wheelchair ll1 19:02 Acuity: SIMONE 3 ll1 Historical: - Allergies: 19:02 Adhesives; ll1 - PMHx: 19:02 Gout; Hyperlipidemia; Hypertension; kidney function is low; Sickle Cell Trait; ll1 - PSHx: 19:02 adrenal gland removed; section; foot; Shoulder (Gout); ll1 - Immunization history:: Adult Immunizations up to date. - Infectious Disease History:: Denies. - Social history:: Smoking status: Patient denies any tobacco usage or history of. Screenin:47 [facility] ED Fall Risk Assessment (Adult) History of falling in the last 3 months, cp4 including since admission No falls in past 3 months (0 pts) Confusion or Disorientation No (0 pts) Intoxicated or Sedated No (0 pts) Impaired Gait No (0 pts) Mobility Assist Device Used No (0 pt) Altered Elimination No (0 pt) Score/Fall Risk Level 0 - 2 = Low Risk Oriented to surroundings, Maintained a safe environment, Assessed \T\ reinforced patient's understanding of fall precautions, Hourly rounding (assess needs \T\ fall precautionary measures) done. Abuse screen: Denies threats or abuse. Denies injuries from another. Nutritional screening: No deficits noted. Tuberculosis screening: No symptoms or risk factors identified. Assessment: 19:47 General: Appears in no apparent distress. comfortable, Behavior is calm, cooperative, cp4 appropriate for age. Pain: Complains of pain in chest Pain does not radiate. Pain currently is 6 out of 10 on a pain scale. Pain began gradually. Neuro: Level of Consciousness is awake, alert, obeys commands, Oriented to person, place, time, situation. Cardiovascular: Patient's skin is warm and dry. Rhythm is sinus rhythm. Respiratory: Reports shortness of breath at rest Airway is patent Respiratory effort is even, unlabored, Breath sounds are clear bilaterally. GI: No signs and/or symptoms were reported involving the gastrointestinal system. : No signs and/or symptoms were reported regarding the genitourinary system. EENT: No signs and/or symptoms were reported regarding the EENT system. Derm: No signs and/or symptoms reported regarding the dermatologic system. Musculoskeletal: No signs and/or symptoms reported regarding the musculoskeletal system. Vital Signs: 19:02 Pulse 88; Resp 18; Temp 98.6; Pulse Ox 99% ; Weight 108.86 kg; Height 5 ft. 6 in. ; ll1 Pain 6/10; 19:39 BP 172 / 95; Pulse 78; Resp 18; Pulse Ox 99% ; cp4 20:59 BP 155 / 90; Pulse 75; Resp 18; Pulse Ox 99% ; cp4 22:02 BP 165 / 87; Pulse 71; Resp 18; Pulse Ox 99% ; cp4 19:02 Body Mass Index 38.74 (108.86 kg, 167.64 cm) ll1 19:02 Pain Scale: Adult ll1 ED Course: 18:55 Patient arrived in ED. im 18:57 Eugenio Leiva PA is PHCP. cp 18:57 David Yoo is Attending Physician. cp 19:01 Arm band placed on Patient placed in an exam room, on a stretcher. ll1 19:03 Triage completed. ll1 19:17 Anahi Hill is Primary Nurse. cp4 19:26 XRAY Chest (1 view) In Process Unspecified. EDMS 19:38 No provider procedures requiring assistance completed. Inserted saline lock: 22 gauge cp4 in right antecubital area, using aseptic technique. Blood collected. Flushed with 10 mL NS. Patient maintains SpO2 saturation greater than 95% on room air. 19:45 EKG done, by ED staff, reviewed by Eugenio VÁSQUEZ. oe 19:47 Bed in low position. Call light in reach. Side rails up X2. Client placed on continuous cp4 cardiac and pulse oximetry monitoring. NIBP monitoring applied. account director on. Pulse ox on. NIBP on. 19:49 Radiology exam delayed due to nurse in room at this time. rs4 20:38 CT Head Brain wo Cont In Process Unspecified. EDMS 23:27 Eh Poole MD is Hospitalizing Provider. cp 01/23 02:31 Provided Education on: needs for admit. rg5 02:31 Patient admitted, IV remains in place. intact, No redness/swelling at site. rg5 Administered Medications: 01/22 19:41 Not Given (Physician Discretion): ns 0.9% 500 ml 500 ml IV at 1 bolus once; to be given cp as a bolus over 60 minutes 19:42 Not Given (Physician Discretion): mg IVP once cp 19:47 Drug: NS 0.9% IV 500 ml 500 ml IV at 1 bolus once; to be given as a bolus over 60 cp4 minutes Volume: 500 ml; Route: IV; Rate: 1 bolus; Site: right antecubital; 23:22 Follow up: IV Status: Completed infusion cp4 19:47 Drug: Aspirin PO Chewable Tablet 162 mg PO once Route: PO; cp4 23:22 Follow up: Response: No adverse reaction cp4 22:35 Drug: Lisinopril PO 20 mg PO once Route: PO; cp4 23:22 Follow up: Response: No adverse reaction cp4 23:07 CANCELLED (Physician Discretion): morphineor iv 2 mg IVP once over 4 mins cp 23:07 CANCELLED (Physician Discretion): morphineor iv 2 mg IVP once over 4 mins cp 23:21 Drug: morphine IVP or IV 4 mg IVP once over 4 mins Route: IVP; Infused Over: 4 mins; cp4 Site: right antecubital; 01/23 00:10 Follow up: Response: No adverse reaction; Pain is decreased rg5 Medication: 01/22 19:47 VIS not applicable for this client. cp4 Outcome: 23:28 Decision to Hospitalize by Provider. cp 01/23 02:31 Admitted to ER Hold. Please see [facility] for further documentation. rg5 Condition: stable Instructed on the need for admit, 08:02 Patient left the ED. eb Signatures: Dispatcher [employer] EDMS Eugenio Leiva PA PA cp Espinosa, Orlando oe Botello, Elizabeth eb Lewis, Lynsay, RN RN ll1 Sindhu Knox rs4 Sherice Duarte Christina cp4 Abhishek Herrera RN RN rg5 Corrections: (The following items were deleted from the chart) 01/22 22:02 22:00 BP 175 / 92; Pulse 71bpm; Resp 18bpm; Pulse Ox 99%; cp4 cp4
--- NOTE | 2025-01-23 00:42 | P.HP ---
Certification for Inpatient Patient admitted to: Observation With expected LOS: <2 Midnights Practitioner: I am a practitioner with admitting privileges, knowledge of patient current condition, hospital course, and medical plan of care. Services: Services provided to patient in accordance with Admission requirements found in Title 42 Section 412.3 of the Code of Federal Regulations Patient History Date of Service: 01/23/25 Reason for admission: Chest Pain History of Present Illness: 64 yrs old Female with past medical history of hypertension, hyperlipidemia, gout, CKD stage II, sickle cell trait, history of retinal gland removal who presents to the ER with chest pain. Pain started today. Retrosternal, nonradiating, pressure-like feeling, 3 out of 10 in severity, associated with shortness of breath and found to have high blood pressure and was brought to ER. Denies any fever or chills. No nausea vomiting or diarrhea. No sick contacts. No recent travel. Denies any previous history of CAD. Patient was assessed in the ER and is admitted for further management of chest pain to rule out ACS. Allergies No Known Drug Allergies Allergy (Verified 12/06/16 11:34) Unknown No Known Allergies Allergy (Uncoded 01/23/17 11:14) Unknown Home medications list reviewed: Yes Home Medications: Ferrous Sulfate [Ferrous Sulfate*] 65 mg PO BID 11/22/13 Losartan Potassium [Cozaar] 50 mg PO DAILY 11/22/13 Pravastatin [Pravachol*] 40 mg PO BEDTIME 11/22/13 Furosemide [Lasix*] 20 mg PO DAILY 11/14/14 Lactobacillus Acidophilus [Acidophilus] 5 mg PO DAILY 11/14/14 Acetaminophen [Tylenol Extra Strength] 500 mg PO Q6H PRN 12/06/16 Pantoprazole [Protonix Tab*] 40 mg PO DAILY 05/09/23 Gabapentin 300 mg PO BEDTIME #30 cap 08/08/24 Gabapentin [Neurontin*] 100 mg PO DAILY #30 cap 08/08/24 Hydrocodone 5/APAP 325 [[place] 5/325*] 1 tab PO Q4H PRN #15 tab 08/08/24 dexAMETHasone [Decadron*] 4 mg PO BID #8 tab 08/08/24 - Past Medical/Surgical History Diabetic: No Past Medical History: Reviewed- Non-Contributory -: HTN -: HLD -: CKD IIIb (Dr. Hidalgo/ Laura) -: Anemia -: Sickle cell trait -: Glaucoma -: Macular degeneration Past Surgical History: Reviewed- Non-Contributory -: -: Lt adenal gland removed -: Varicose vein sx -: Lt rotator cuff -: cyst removal to boith feet -: knee sx, fluid removal - Family History Mother -: Heart disease, Hypertension - Social History Smoking Status: Never smoker Alcohol use: No CD- Drugs: No Caffeine use: Yes Review of Systems 10-point ROS is otherwise unremarkable Physical Examination - Vital Signs Temperature: 97.8 F Blood Pressure: 120/70 Pulse: 78 Respirations: 18 Pulse Ox (%): 94 - Physical Exam General: Alert, In no apparent distress, Oriented x3, Obese HEENT: Atraumatic, Normocephalic Neck: Supple Respiratory: Clear to auscultation bilaterally, Normal air movement Cardiovascular: Regular rate/rhythm, Normal S1 S2 Capillary refill: <2 Seconds Gastrointestinal: Soft and benign, W/out hepatosplenomegaly Musculoskeletal: No clubbing Integumentary: No rashes Neurological: Normal speech, Normal strength at 5/5 x4 extr, Cranial nerves 3-12 intact, Normal reflexes 2+ Lymphatics: No axilla or inguinal lymphadenopathy - Studies Laboratory Data (last 24 hrs) 01/22/25 01/22/25 01/22/25 19:33 19:33 19:33 WBC 13.80 H Hgb 11.6 L Hct 35.3 L Plt Count 286 PT 13.1 H INR 1.16 Sodium 139 Potassium 3.5 BUN 21 H Creatinine 1.68 H Glucose 75 Magnesium 2.1 Total Bilirubin 0.6 AST 17 ALT 26 Alkaline Phosphatase 78 Assessment and Plan - Plan Chest pain to rule out ACS Will trend cardiac enzymes Will monitor telemetry Started on aspirin and statin EKG did not show any acute changes suggestive of ischemia Patient denies any chest pain at the time of interview Will get an echocardiogram Cardiology consult Elevated D-dimer Will get a CT chest PE protocol Hypertension Antihypertensives titrated Continue home medications and titrate as needed Hyperlipidemia Continue statin CKD stage II Monitor renal parameters Electrolytes monitor and replace accordingly Anemia of chronic disease Monitor H&H closely No overt bleeding at this time Patient had GI bleeding in the past requiring transfusions GI/DVT prophylaxis Advanced directive full code Discharge Plan: Home Plan to discharge in: 48 Hours - Advance Directives Does patient have a Living Will: No Does patient have a Durable POA for Healthcare: No - Code Status/Comfort Care Code Status: Full Code Time Spent Managing Pts Care (In Minutes): 48
[2025-01-23] MEDS ORDERED: ONDANSETRON 4 MG/2 ML VIAL IV PRN (00:43)
[2025-01-23 02:26] VITALS: BMI 38.7
[2025-01-23] MEDS ORDERED: HYDROCODONE/APAP 5/325 MG TAB PO PRN (04:00)
--- NOTE | 2025-01-23 04:03 | RAD REPORT ---
CTA THORAX - PULMONARY ARTERIES HISTORY: Suspected pulmonary embolus. COMPARISON: None. TECHNIQUE: Intravenous low osmolar contrast. Coronal and sagittal reformations including 3D maxim um intensity projections. This exam was performed according to our departmental dose-optimization program, which includes autom ated exposure control, adjustment of the mA and/or kV according to patient size and/or use of iterative reconstruction technique. FINDINGS: PULMONARY ARTERIAL SYSTEM: Contrast bolus is adequate. No CT evidence for pulmonary embolism. CARDIAC: Coronary artery calcifications. AORTA/VASCULAR: No aneurysm. Thoracic aortic atherosclerosis. LYMPH NODES/MEDIASTINUM: No thoracic adenopathy. CENTRAL AIRWAYS: Central airways are patent. LUNGS: No pulmonary infiltrates or masses. PLEURA: Normal. ESOPHAGUS: Collapsed and not well assessed by CT, without obvious abnormality. THYROID: Negative, where seen. CHEST WALL: Normal. UPPER ABDOMEN: No acute findings. THORACIC SKELETAL: No acute finding. ADDITIONAL CHEST FINDINGS: None. IMPRESSION: 1. No evidence of acute pulmonary embolus. 2. No acute thoracic findings. Electronically signed by: Karly Montana MD 01/23/2025 03:58 AM T TYG Due to temporary technical issues with the PACS/Integrate reporting system, reports are being diogo d by the in-house radiologist without review as a courtesy to ensure prompt reporting the interpreting radiologist is fully responsible for the content of the report. Transcribed Date/Time: 01/23/2025 4:03 AM
[2025-01-23] MEDS ORDERED: ACETAMINOPHEN 325 MG TABLET ONE (05:09)
[2025-01-23] MEDS: ACETAMINOPHEN 325 MG TABLET PO PRN (05:11)
[2025-01-23] MEDS: PANTOPRAZOLE 40MG TABLET PO SCH (07:30)
[2025-01-23] MEDS ORDERED: HYDRALAZINE HCL 20 MG/ML VIAL IV PRN (08:14)
[2025-01-23] MEDS: HEPARIN 5000 UNIT/ML 1 ML VIAL SQ SCH (08:24)
[2025-01-23] MEDS: LOSARTAN POTASSIUM 50 MG TABLET PO SCH (08:31)
[2025-01-23] MEDS: GABAPENTIN 100 MG CAP PO SCH (08:31)
[2025-01-23] MEDS: ASPIRIN EC 81 MG TAB PO SCH (08:31)
--- NOTE | 2025-01-23 08:47 | P.CNS ---
Date of Consult: 01/23/25 Chief Complaint: Chest Pain History of Present Illness: Patient with PMH of hypertension, presented with worsening COLEMAN, exertional angina that has been going on for weeks, she describe, mid chest pain, no radiation, no other symptoms like palpitations or syncope. Allergies No Known Drug Allergies Allergy (Verified 12/06/16 11:34) Unknown Home medications list reviewed: Yes Home Medications: RX: Ferrous Sulfate [Ferrous Sulfate*] 65 mg PO Q48H 11/22/13 RX: Lactobacillus Acidophilus [Acidophilus] 5 mg PO DAILY 11/14/14 RX: Acetaminophen [Tylenol Extra Strength] 500 mg PO Q6H PRN 12/06/16 RX: Pantoprazole [Protonix Tab*] 40 mg PO DAILY PRN 05/09/23 RX: Gabapentin 300 mg PO BEDTIME #30 cap 08/08/24 RX: Gabapentin [Neurontin*] 100 mg PO DAILY #30 cap 08/08/24 RX: Hydrocodone 5/APAP 325 [[place] 5/325*] 1 tab PO Q4H PRN #15 tab 08/08/24 Bimatoprost [Lumigan Opthalmic Drops*] 1 drop EACH EYE BEDTIME 01/23/25 Empagliflozin [Jardiance] 10 mg PO DAILY 01/23/25 RX: Albuterol [Proventil] 17 gm IH PRN PRN 01/23/25 RX: Allopurinol 300 mg PO DAILY 01/23/25 RX: Aspirin 81 mg PO DAILY 01/23/25 RX: Rosuvastatin Calcium 10 mg PO BEDTIME 01/23/25 - Past Medical/Surgical History Diabetic: No -: HTN -: HLD -: CKD IIIb (Dr. Hidalgo/ [facility]) -: Anemia -: Sickle cell trait -: Glaucoma -: Macular degeneration -: -: Lt adenal gland removed -: Varicose vein sx -: Lt rotator cuff -: cyst removal to boith feet -: knee sx, fluid removal - Family History Mother Medical History: Heart disease, Hypertension - Social History Smoking Status: Never smoker Alcohol use: No CD- Drugs: No Caffeine use: Yes Review of Systems 10-point ROS is otherwise unremarkable Physical Examination Temp Pulse Resp BP Pulse Ox 97.8 F 75 18 197/93 H 98 01/23/25 08:00 01/23/25 08:00 01/23/25 08:00 01/23/25 08:00 01/23/25 08:00 General: Alert, In no apparent distress HEENT: Atraumatic, PERRLA, Mucous membr. moist/pink, EOMI, Sclerae nonicteric Neck: Supple, 2+ carotid pulse no bruit, No LAD, Without JVD or thyroid abnormality Respiratory: Clear to auscultation bilaterally, Normal air movement Cardiovascular: Regular rate/rhythm, Normal S1 S2 Gastrointestinal: Normal bowel sounds, No tenderness Musculoskeletal: No tenderness Integumentary: No rashes Neurological: Normal gait, Normal speech, Normal tone, Normal affect Lymphatics: No axilla or inguinal lymphadenopathy Laboratory Data (last 24 hrs) 01/22/25 01/22/25 01/22/25 19:33 19:33 19:33 WBC 13.80 H Hgb 11.6 L Hct 35.3 L Plt Count 286 PT 13.1 H INR 1.16 Sodium 139 Potassium 3.5 BUN 21 H Creatinine 1.68 H Glucose 75 Magnesium 2.1 Total Bilirubin 0.6 AST 17 ALT 26 Alkaline Phosphatase 78 - Problems (1) HTN (hypertension) Current Visit: Yes Status: Acute Plan: reconcille and resume patient home medications continue to monitor (2) Chest pain Onset Date: 11/16/14 Current Visit: No Status: Acute Plan: concern for angina, will do coronary angiogram get echo ASA 81 mg daily Crestor 20 mg daily (3) Renal failure Current Visit: No Status: Chronic Plan: hydrate at this time and might benefit from NEphrology input.
[2025-01-23 10:00] LABS: Absolute Basophils 0.1 K/uL (0-0.5); Absolute Eosinophils 0.3 K/uL (0-0.5); Absolute Lymphocytes (CBC) 2.5 K/uL (0.7-4.9); Absolute Monocytes 0.8 K/uL (0.1-1.3); Absolute Neutrophil 8.9 K/uL (1.8-8.0); Basophils % 0.9 % (0-1.3); Eosinophils % 2.1 % (0-4.4); Hematocrit 34.5 % (36.0-45.0); Hemoglobin 11.4 g/dL (12.0-15.0); Lymphocytes % 20.1 % (15.3-44.8); MCH 29.7 pg (27.0-35.0); MCHC 32.9 g/dL (32.0-36.0); MCV 90.4 fL (80-100); MPV 11.1 fL (7.6-11.3); Monocytes % 6.7 % (3.3-12.3); Neutrophils % 70.2 % (41.7-73.7); Nucleated Red Blood Cells % 0.1 % (0-0); Platelets 267 thou/uL (152-406); RBC Red Blood Cell Count 3.82 M/uL (3.86-4.86)
[2025-01-23 10:07] LABS: Anion Gap 8.8 mEq/L (5.0-15.0); Potassium 3.8 mEq/L (3.5-5.1)
[2025-01-23] MEDS ORDERED: HEPA 1000U/500MLS 2,000 UNIT/1,000 ML BAG IV ONE (10:09)
[2025-01-23] MEDS ORDERED: LIDOCAINE 1% 20 ML MDV ONE (10:09)
[2025-01-23] MEDS ORDERED: HEPARIN 10,000 UNIT/10 ML VIAL IV ONE (10:09)
[2025-01-23] MEDS ORDERED: NITROGLYCERIN/D5W 50 MG/250 ML BTL IV ONE (10:09)
[2025-01-23] MEDS ORDERED: HEPARIN 5000 UNIT/ML 1 ML VIAL ONE (10:10)
[2025-01-23] MEDS ORDERED: ASPIRIN 325 MG TAB ONE (10:10)
[2025-01-23] MEDS ORDERED: TICAGRELOR 90 MG TABLET PO ONE (10:10)
[2025-01-23] MEDS ORDERED: CLOPIDOGREL 75 MG TABLET ONE (10:10)
[2025-01-23] MEDS ORDERED: ATROPINE SULF 1 MG/10 ML SYR IV ONE ×2 (10:11→10:51)
[2025-01-23] MEDS ORDERED: NA CHLORIDE 0.9% 500 ML ONE (10:25)
[2025-01-23] MEDS ORDERED: FENTANYL CITR 100 MCG/2 ML ONE (10:48)
[2025-01-23] MEDS ORDERED: MIDAZOLAM HCL 2 MG/2 ML INJ ONE (10:48)
--- NOTE | 2025-01-23 10:48 | P.PN ---
Subjective Date of Service: 01/23/25 Chief Complaint: Chest Pain Subjective: c/o chest pain and shortness of breath, better than last night. No nausea or vomiting. No abdominal pain. No obvious bleeding that she knows, legally blind. Looks comfortable in the bed. Objective: General appearance: Alert and comfortable CVS: Normal S1 and S2 Lungs: Clear to auscultation bilaterally Abdomen: Soft, bowel sounds present, no tenderness Extremities: No lower extremity edema Physical Examination - Vital Signs Temperature: 97.8 F Blood Pressure: 197/93 Pulse: 75 Respirations: 18 Pulse Ox (%): 98 - Studies Laboratory Data (last 24 hrs) 01/22/25 01/22/25 01/22/25 19:33 19:33 19:33 WBC 13.80 H Hgb 11.6 L Hct 35.3 L Plt Count 286 PT 13.1 H INR 1.16 Sodium 139 Potassium 3.5 BUN 21 H Creatinine 1.68 H Glucose 75 Magnesium 2.1 Total Bilirubin 0.6 AST 17 ALT 26 Alkaline Phosphatase 78 Assessment And Plan - Plan 1. Chest pain to rule out ACS -cardiac enzymes neg -Started on aspirin and statin - f/u echocardiogram - Cardiology consult on board -CT chest PE protocol neg for PE 2. Hypertension Antihypertensives titrated 3. Hyperlipidemia Continue statin 4. CKD stage III b Monitor renal parameters closely 5. Chronic Anemia sec to CKD Monitor H&H closely No overt bleeding at this time 6. Mild leukocytosis, follow-up on urine culture. Plan discussed with the patient and nursing staff, all questions answered.
[2025-01-23] MEDS: METOPROLOL TAR 25 MG TAB PO SCH (11:08)
[2025-01-23] MEDS ORDERED: HYDRALAZINE HCL 20 MG/ML VIAL ONE (11:44)
--- NOTE | 2025-01-23 13:20 | EKG ---
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
--- NOTE | 2025-01-23 13:26 | ECHO ---
HEIGHT: 5 ft 6 in WEIGHT: 239 lb 15.923 oz DATE OF STUDY: 01/23/[address]: 2-DIMENSIONAL: YES M.MODE: YES DOPPLER: YES COLOR FLOW: YES TDS: PORTABLE: YES DEFINITY: BUBBLE STUDY: DIAGNOSIS: CHEST PAIN CARDIAC HISTORY: CATHERIZATION: YES SURGERY: NO PROSTHETIC VALVE: NO PACEMAKER: NO MEASUREMENTS (cm) DIASTOLIC (NORMALS) SYSTOLIC (NORMALS) IVSd 1.1 (0.6-1.2) LA Diam 3.0 (1.9-4.0) LVEF 60-65% LVIDd 4.5 (3.5-5.7) LVIDs 2.8 (2.0-3.5) %FS 38% LVPWd 1.1 (0.6-1.2) Ao Diam 3.3 (2.0-3.7) 2 DIMENSIONAL ASSESSMENT: RIGHT ATRIUM: NORMAL LEFT ATRIUM: NORMAL RIGHT VENTRICLE: NORMAL LEFT VENTRICLE: NORMAL TRICUSPID VALVE: TRACE TRICUSPID REGURGITATION MITRAL VALVE: NORMAL PULMONIC VALVE: TRACE PULMONIC REGURGITATION AORTIC VALVE: NORMAL PERICARDIAL EFFUSION: NONE AORTIC ROOT: NORMAL LEFT VENTRICULAR WALL MOTION: NORMAL DOPPLER/COLOR FLOW: NORMAL COMMENTS: 1. NORMAL LEFT VENTRICULAR SYSTOLIC FUNCTION, EJECTION FRACTION 60-65%, NORMAL WALL MOTION 2. NORMAL DIASTOLIC FUNCTION 3. NORMAL FILLING PRESSURE (RIGHT ATRIAL PRESSURE 0-5 mmHg) TECHNOLOGIST: GRETCHEN WILKERSON
--- NOTE | 2025-01-23 15:00 | OP ---
Date of Procedure: 01/23/2025 Surgeon: Geovanni Doran Procedures Performed: 1. Left heart catheterization. 2. Selective coronary angiogram. Indication For Procedure: Unstable angina. Complications: None. Estimated Blood Loss: Less than 50 cc. Access: Right radial, closed by TR band. Sedation Time: 20 minutes with 1 of Versed and 50 of fentanyl. Description Of Procedure: After risks, benefits, and alternatives were explained to the patient, the patient agreed to proceed with procedure and signed informed consent. The patient was brought back to the refuse laborer, prepped and draped in sterile fashion. Time-out was performed. Sedation was admini stered. Next, right radial access was obtained using ultrasound-guided micropuncture technique. Tig er 4 catheter was advanced over a J-wire to the LV cavity. LVEDP was obtained. Pullback did not nathalia w any gradient. Same catheter was used for selective angiogram of the left and right coronary system s. At the end of procedure, catheter was removed over a J-wire. Sheath was removed. TR band was ap plied and hemostasis achieved and patient was moved back to Recovery in stable condition. Findings: 1. Left main normal. 2. LAD with ostial 20% to 30% disease and mild luminal irregularities. Very tortuous artery. 3. Left circ; ostial 20% to 30% disease, then mild luminal irregularities. 4. RCA; dominant, mild luminal irregularities. 5. LVEDP 20 mmHg. Assessment: 1. Mild ostial LAD and left circ disease. 2. Mild elevated filling pressure. Plan: Will be to continue medical management. STEFFANIE/MICHAEL Voice ID: [id number] Report ID: [id number]
[2025-01-23 16:43] LABS: Specific Gravity 1.026 (1.005-1.030); Sqamous Epithelial <5 /HPF (None Seen); Transitional Epithelial <5 /HPF (None Seen); Urine Bacteria None Seen /HPF (<20); Urine Bilirubin NEGATIVE (Negative); Urine Blood Negative (Negative); Urine Clarity Clear (Clear); Urine Color Light-Yellow (Yellow); Urine Culture Reflex Order REFLEXED; Urine Glucose 1+ (Negative); Urine Ketones NEGATIVE (Negative); Urine Microscopic Reflex YN ORDER UMIC; Urine Nitrite NEGATIVE (Negative); Urine Protein 1+ (Negative); Urine RBC <5 /HPF (None Seen); Urine Urobilinogen Normal (Normal); Urine pH 7.5 (5.0-7.0)
[2025-01-23] MEDS: ATORVASTATIN 10 MG TAB PO SCH (20:29)
[2025-01-23] MEDS: GABAPENTIN 300 MG CAP PO SCH (22:24)
[2025-01-24 06:10] LABS: Absolute Basophils 0.1 K/uL (0-0.5); Absolute Eosinophils 0.3 K/uL (0-0.5); Absolute Lymphocytes (CBC) 2.4 K/uL (0.7-4.9); Absolute Monocytes 0.8 K/uL (0.1-1.3); Absolute Neutrophil 7.5 K/uL (1.8-8.0); Basophils % 0.5 % (0-1.3); Eosinophils % 2.4 % (0-4.4); Hematocrit 36.3 % (36.0-45.0); Hemoglobin 11.9 g/dL (12.0-15.0); Lymphocytes % 21.8 % (15.3-44.8); MCH 29.8 pg (27.0-35.0); MCHC 32.9 g/dL (32.0-36.0); MCV 90.7 fL (80-100); MPV 10.5 fL (7.6-11.3); Monocytes % 6.9 % (3.3-12.3); Neutrophils % 68.4 % (41.7-73.7); Platelets 261 thou/uL (152-406); Red Cell Distribution Width 16.5 % (12.1-15.2)
[2025-01-24 06:25] LABS: Albumin 3.2 g/dL (3.4-5.0); Albumin/Globulin Ratio 0.8 (1.1-1.8); Anion Gap 8.9 mEq/L (5.0-15.0); Bilirubin Total 0.7 mg/dL (0.2-1.0); Globulin 4.2 g/dL (2.3-3.5); Potassium 3.9 mEq/L (3.5-5.1); Protein, Total 7.4 g/dL (6.4-8.2)
[2025-01-24] MEDS: AMLODIPINE 5 MG TAB PO SCH (11:45)
[2025-01-24] MEDS: CEFTRIAXONE 1,000 MG in NA CHLORIDE 0.9% 50 ML IVPB SCH (11:45)
--- NOTE | 2025-01-24 13:10 | P.PN ---
Subjective Date of Service: 01/24/25 Chief Complaint: Chest Pain Subjective: No chest pain or shortness of breath. No nausea or vomiting. No abdominal pain. No obvious bleeding that she knows, legally blind. Looks comfortable in the bed. c/o frequent urination Objective: General appearance: Alert and comfortable CVS: Normal S1 and S2 Lungs: Clear to auscultation bilaterally Abdomen: Soft, bowel sounds present, no tenderness Extremities: No lower extremity edema Physical Examination - Vital Signs Temperature: 98 F Blood Pressure: 139/76 Pulse: 58 Respirations: 16 Pulse Ox (%): 97 Assessment And Plan - Plan 1. Chest pain: resolved -cardiac enzymes neg -Started on aspirin and statin - echocardiogram showed 60 to 65% EF - Cardiology consult on board -CT chest PE protocol neg for PE - Had a cardiac cath yesterday, which showed mild disease, recommended medical management 2. Hypertension Antihypertensives titrated 3. Hyperlipidemia Continue statin 4. CKD stage III b Monitor renal parameters closely 5. Chronic Anemia sec to CKD Monitor H&H closely No overt bleeding at this time 6. UTI: Follow-up on urine culture, started on IV antibiotics. Plan discussed with the patient and nursing staff, all questions answered. Home tomorrow depending on culture results.
[2025-01-25 09:19] LABS: Absolute Basophils 0.2 K/uL (0-0.5); Absolute Eosinophils 0.2 K/uL (0-0.5); Absolute Lymphocytes (CBC) 2.4 K/uL (0.7-4.9); Absolute Monocytes 0.8 K/uL (0.1-1.3); Absolute Neutrophil 9.4 K/uL (1.8-8.0); Basophils % 1.2 % (0-1.3); Eosinophils % 1.9 % (0-4.4); Hematocrit 36.4 % (36.0-45.0); Lymphocytes % 18.4 % (15.3-44.8); MCH 29.7 pg (27.0-35.0); MCHC 33.1 g/dL (32.0-36.0); MCV 89.8 fL (80-100); MPV 11.1 fL (7.6-11.3); Monocytes % 6.4 % (3.3-12.3); Neutrophils % 72.1 % (41.7-73.7); Nucleated Red Blood Cells % 0.1 % (0-0); Platelets 269 thou/uL (152-406); RBC Red Blood Cell Count 4.05 M/uL (3.86-4.86); Red Cell Distribution Width 16.8 % (12.1-15.2)
--- NOTE | 2025-01-25 11:35 | P.PN ---
Subjective Date of Service: 01/25/25 Chief Complaint: Chest Pain Subjective: No chest pain or shortness of breath. No nausea or vomiting. No abdominal pain. No obvious bleeding that she knows, legally blind. Looks comfortable in the bed. c/o some dysuria today, frequent urination improving Objective: General appearance: Alert and comfortable CVS: Normal S1 and S2 Lungs: Clear to auscultation bilaterally Abdomen: Soft, bowel sounds present, no tenderness Extremities: No lower extremity edema Physical Examination - Vital Signs Temperature: 97.7 F Blood Pressure: 142/84 Pulse: 65 Respirations: 16 Pulse Ox (%): 99 Assessment And Plan - Plan 1. Chest pain: resolved -cardiac enzymes neg -Started on aspirin and statin - echocardiogram showed 60 to 65% EF - Cardiology consult recs appreciated -CT chest PE protocol neg for PE - Had a cardiac cath, which showed mild disease, recommended medical management 2. Hypertension -cont current meds 3. Hyperlipidemia Continue statin 4. CKD stage III b Monitor renal parameters closely 5. Chronic Anemia sec to CKD Monitor H&H closely No overt bleeding at this time 6. UTI: Follow-up on urine culture, on IV antibiotics, WBC still up. Plan discussed with the patient and nursing staff, all questions answered. Home DC later today or tomorrow depending on culture results.
[2025-01-26 09:15] VITALS: O2SAT 95
[2025-01-26 09:28] LABS: Absolute Basophils 0.1 K/uL (0-0.5); Absolute Eosinophils 0.3 K/uL (0-0.5); Absolute Lymphocytes (CBC) 2.1 K/uL (0.7-4.9); Absolute Monocytes 0.8 K/uL (0.1-1.3); Absolute Neutrophil 8.1 K/uL (1.8-8.0); Basophils % 0.9 % (0-1.3); Eosinophils % 2.2 % (0-4.4); Hematocrit 36.8 % (36.0-45.0); Hemoglobin 12.1 g/dL (12.0-15.0); Lymphocytes % 18.5 % (15.3-44.8); MCH 29.6 pg (27.0-35.0); MCHC 32.8 g/dL (32.0-36.0); MCV 90.1 fL (80-100); MPV 10.2 fL (7.6-11.3); Monocytes % 6.8 % (3.3-12.3); Neutrophils % 71.6 % (41.7-73.7); Platelets 295 thou/uL (152-406); RBC Red Blood Cell Count 4.08 M/uL (3.86-4.86); Red Cell Distribution Width 16.3 % (12.1-15.2)
[2025-01-26 09:44] LABS: Anion Gap 8.9 mEq/L (5.0-15.0); Potassium 3.9 mEq/L (3.5-5.1)
--- NOTE | 2025-01-26 15:44 | P.DS ---
Admission Date: 01/23/25 Discharge Date: 01/26/25 Disposition: DC HOME/HOME HEALTH CARE Discharge Condition: GOOD Reason for Admission: Chest Pain Hospital Course: Discharge diagnosis: 1. Chest pain: resolved -cardiac enzymes neg -on aspirin and statin - echocardiogram showed 60 to 65% EF - Cardiology consult recs appreciated -CT chest PE protocol neg for PE - Had a cardiac cath, which showed mild disease, recommended medical management 2. Hypertension -cont metoprolol and norvasc, PCP to follow and adjsut meds 3. Hyperlipidemia Continue statin 4. CKD stage III b: stable 5. Chronic Anemia sec to CKD No overt bleeding at this time f/u with PCP 6. UTI: WBC improving, urine culture neg, given 3 days of IV antibiotics so far. Subjective: No chest pain or shortness of breath. No nausea or vomiting. No abdominal pain. No obvious bleeding that she knows, legally blind. Looks comfortable in the bed. dysuria and frequent urination improving Objective: General appearance: Alert and comfortable CVS: Normal S1 and S2 Lungs: Clear to auscultation bilaterally Abdomen: Soft, bowel sounds present, no tenderness Extremities: No lower extremity edema 64-year-old patient admitted with chest pain, cardiology was consulted, she had an echocardiogram which showed normal EF, she had a cardiac cath which showed mild disease, cardiology recommended medical management, she was on aspirin and statin, due to her blood pressure issues, she was started on beta-ronnie as well, her blood pressure was still high, started on Norvasc, her blood pressure is improving, this needs close monitoring with PCP. Her WBC was high, urina lysis was abnormal, she was having dysuria and frequent urination, started on IV antibiotics, WBC count is improving, urine culture came back negative today as per lab but official report not available for me, she was given 3 days of IV antibiotics so far, as the culture is negative, I am going to hold on further antibiotics at this time. When I see the patient today, she is doing well without any acute problems and feels ready to go home, otherwise no other acute issues going on so I am planning to discharge her to go home, and close follow- up with PCP. Vital Signs/Physical Exam: Temp Pulse Resp BP Pulse Ox 98.1 F 62 15 132/63 97 01/26/25 12:00 01/26/25 12:00 01/26/25 12:00 01/26/25 12:00 01/26/25 12:00 Laboratory Data at Discharge: WBC 11.40 thou/uL (4.3-10.9) H 01/26/25 09:18 Hgb 12.1 g/dL (12.0-15.0) 01/26/25 09:18 Hct 36.8 % (36.0-45.0) 01/26/25 09:18 Plt Count 295 thou/uL (152-406) 01/26/25 09:18 PT 13.1 SECONDS (10-13.0) H 01/22/25 19:33 INR 1.16 01/22/25 19:33 Sodium 139 mEq/L (136-145) 01/26/25 09:18 Potassium 3.9 mEq/L (3.5-5.1) 01/26/25 09:18 BUN 23 mg/dL (7-18) H 01/26/25 09:18 Creatinine 1.72 mg/dL (0.55-1.02) H 01/26/25 09:18 Glucose 83 mg/dL (74-106) 01/26/25 09:18 Magnesium 2.1 mg/dL (1.6-2.4) 01/22/25 19:33 Total Bilirubin 0.7 mg/dL (0.2-1.0) 01/24/25 05:49 AST 19 U/L (15-37) 01/24/25 05:49 ALT 21 U/L (13-56) 01/24/25 05:49 Alkaline Phosphatase 65 U/L (45-117) 01/24/25 05:49 Home Medications: Ferrous Sulfate [Ferrous Sulfate*] 65 mg PO Q48H 11/22/13 Lactobacillus Acidophilus [Acidophilus] 5 mg PO DAILY 11/14/14 Acetaminophen [Tylenol Extra Strength] 500 mg PO Q6H PRN 12/06/16 Pantoprazole [Protonix Tab*] 40 mg PO DAILY PRN 05/09/23 Gabapentin 300 mg PO BEDTIME #30 cap 08/08/24 Gabapentin [Neurontin*] 100 mg PO DAILY #30 cap 08/08/24 Hydrocodone 5/APAP 325 [[place] 5/325*] 1 tab PO Q4H PRN #15 tab 08/08/24 Albuterol [Proventil] 17 gm IH PRN PRN 01/23/25 Allopurinol 300 mg PO DAILY 01/23/25 Aspirin 81 mg PO DAILY 01/23/25 Bimatoprost [Lumigan Opthalmic Drops*] 1 drop EACH EYE BEDTIME 01/23/25 Empagliflozin [Jardiance] 10 mg PO DAILY 01/23/25 Rosuvastatin Calcium 10 mg PO BEDTIME 01/23/25 Sodium Polystyrene Sulfonate 15 gm PO DAILY 01/23/25 Amlodipine [Norvasc*] 5 mg PO DAILY #30 tab 01/26/25 Metoprolol Tartrate [Lopressor*] 25 mg PO BID 6AM 6PM #60 tab 01/26/25 New Medications: Metoprolol Tartrate [Lopressor*] 25 mg PO BID 6AM 6PM #60 tab Amlodipine [Norvasc*] 5 mg PO DAILY #30 tab Diet: AHA Activity: Ad colby Followup: Karlee Colvin MD [Primary Care Provider] - 1 Week (f/u with PCP in 1 week with CBC and CMP) Time spent managing pt's care (in minutes): 32
[2025-01-26 16:21] VITALS: BP 144/81; TEMP 97.5
== END 2025-01-26 17:45 | disposition home health service (06) | DRG 287 ==
LOC: ER 18:50 → ERHOLD 01-23 00:43 → 2ND 01-23 01:29 → ERHOLD 01-23 01:54 → 4TH 01-23 07:37 → OBSVTOIN 01-23 17:26
PROVIDERS: ADMIT Family Medicine; ATTEND Hospitalist
PROC: 4A023N7 Measurement of Cardiac Sampling and Pressure, Left Heart, Percutaneous Approach (ICD-10-PCS; principal; 2025-01-23)
PROC: B2111ZZ Fluoroscopy of Multiple Coronary Arteries using Low Osmolar Contrast (ICD-10-PCS; 2025-01-23)
DX: I20.0 Unstable angina (principal); N39.0 Urinary tract infection, site not specified; D63.1 Anemia in chronic kidney disease; N18.32 Chronic kidney disease, stage 3b; I12.9 Hypertensive chronic kidney disease with stage 1 through stage 4 chronic kidney disease, or unspecified chronic kidney disease; E66.9 Obesity, unspecified; E78.5 Hyperlipidemia, unspecified; M10.9 Gout, unspecified; H35.30 Unspecified macular degeneration; D57.3 Sickle-cell trait; H40.9 Unspecified glaucoma; Z11.52 Encounter for screening for COVID-19; Z68.38 Body mass index [BMI] 38.0-38.9, adult
CPT/HCPCS: 36415; 70450; 71045; 71275; 76937; 80048; 80053; 80076; 81001; 83735; 83880; 84484; 85025; 85379; 85610; 87086; 87088; 87428; 93005; 93306; 93458; 94760; 96361; 96374; 99152; 99285; C1893; G0378; J0360; J0461; J0696; J1644; J2003; J2250; J3010; J7040; Q9966; Q9967